=== PATIENT | female | born 1970 | race Caucasian/White ===

== ENCOUNTER → 2017-02-08 | Outpatient (CLI) | payer BC, OTHER ==
--- NOTE | 2017-02-08 22:30 | MR ---
EXAMINATION TYPE: MR brain/cspine wo DATE OF EXAM: 02/08/2017 9:04 PM COMPARISON: MRI brain September 09, 2014. HISTORY: Headaches, dizziness, neck pain, Mu arm pain TECHNIQUE: Multiplanar, multisequence imaging of the brain and brainstem is performed without IV cont rast. FINDINGS: BRAIN: Diffusion weighted images demonstrate no evidence of a recent infarct or other diffusion abnormality. There is no worrisome extra-axial fluid collection. The ventricular system and cisternal spaces are normal in size and appearance. The brain volume is age appropriate. A few scattered foci of T2 hyper intensity are likely still present though more artifact degradation on current study is noted. For re ference 2 mm lesion right parietal white matter on axial image 18 is stable. Estimate similar 4-6 sca ttered punctate lesions. Midline structures demonstrate normal morphology. The craniocervical junction appears within normal limits. Normal vascular flow voids are present. There is redemonstration of mucous retention cyst or polyp inferiorly in right maxillary sinus otherwise paranasal sinuses are clear. Globes are intact bi laterally. IMPRESSION: Overall stable findings minimal nonspecific white matter changes redemonstrated. No new s uspicious finding seen. C-SPINE: FINDINGS: Motion artifact degradation is noted making evaluation suboptimal. Sagittal images of the c ervical spine show the craniocervical junction to appear within normal limits. The cervical and uppe r thoracic spinal cord is normal in course, caliber, and signal. Vertebral alignment is anatomic. T he vertebral body and intravertebral disk heights are normal. Small posterior disc herniations are s een on sagittal images at C5-C6 and to lesser degree C6-C7 level effacing anterior thecal sac The bon e marrow signal intensity is within normal limits. No significant spurring is noted. Axial images show the C2-C3, C3-C4, and C4-C5 levels all to appear within normal limits. Axial images at C5-C6 level show broad-based right paracentral disc protrusion effacing anterior thec al sac and causing mild right greater than left neural foraminal narrowing. Finding most pronounced o n axial image 18 up to ventral surface of spinal cord. Axial images at C6-C7 level show broad-based central disc protrusion effacing anterior thecal sac and causing mild left-sided neural foraminal narrowing. Axial images at C7-T1 level are felt within normal limits. IMPRESSION: Degenerative changes C6-C7 and to greater degree C5-C6 level as detailed above.
== END | disposition home or self-care (01) ==
LOC: RADMRIMAIN 19:58
PROVIDERS: ATTEND Nurse Practitioner Acute Care
DX: M47.812 Spondylosis without myelopathy or radiculopathy, cervical region (principal); R90.82 White matter disease, unspecified; R51 Headache
CPT/HCPCS: 70551; 72141

== ENCOUNTER → 2017-02-13 | Outpatient (CLI) | payer BC, OTHER ==
--- NOTE | 2017-02-13 19:08 | US ---
EXAMINATION TYPE: US venous doppler duplex LE LT DATE OF EXAM: 02/13/2017 6:51 PM COMPARISON: NONE CLINICAL HISTORY: LLE Pain M79.605. Difficult exam due to patient body habitus SIDE PERFORMED: Left VESSELS IMAGED: External Iliac Vein (EIV) Common Femoral Vein Deep Femoral Vein Greater Saphenous Vein * Femoral Vein Popliteal Vein Small Saphenous Vein * Proximal Calf Veins (* superficial vessels) TECHNOLOGIST IMPRESSION: Left Leg: Appears negative for DVT IMPRESSION: Normal exam. No evidence of deep venous thrombosis in the left leg.
== END ==
LOC: RADUSMAIN 18:02
PROVIDERS: ATTEND Psychiatry & Neurology Neurology
DX: M79.605 Pain in left leg (principal)

== ENCOUNTER → 2017-05-20 | Outpatient (CLI) | payer BC, OTHER ==
--- NOTE | 2017-05-20 16:31 | CT ---
EXAMINATION TYPE: CT abdomen pelvis w con DATE OF EXAM: 05/20/2017 COMPARISON: NONE HISTORY: 47-year-old female lump to left side/lower abdominal area x1 month. TECHNIQUE: Contiguous axial scanning of the abdomen and pelvis following administration of 100 ml Omn ipaque 300 IV contrast. Delayed images through the kidneys and coronal/sagittal reconstructions perf ormed. CT DLP: 3790.0 mGycm Automated exposure control for dose reduction was used. FINDINGS: The heart is upper limits of normal in size without pericardial effusion. Lung bases are clear withou t pleural effusion. Some nonspecific calcifications along the periphery of the right hepatic dome could reflect sequela o f prior injury or granulomatous disease. The liver is mildly enlarged measuring 18.6 cm craniocaudal and otherwise without focal lesion. Cholecystectomy clips are present. Portal venous system is patent. No biliary ductal dilatation. Adrenal glands, kidneys, spleen, and pancreas within normal limits. Scattered nonenlarged mesenteric lymph nodes measuring up to 5 mm. No dilated small bowel, free fluid, or free air. Normal appendix. There is mild stool burden without pericolonic inflammatory change. Mild diverticulo sis of the mid to distal sigmoid colon without pericolonic inflammatory change. Bladder is urine distended. Uterus and both ovaries are visualized. No abnormal fluid collection in t he pelvis or pelvic lymphadenopathy. No discrete abdominal wall hernia is identified. Bones: Degenerative disc disease L5-S1. No osseous destructive process. IMPRESSION: 1. MILD HEPATOMEGALY. 2. NO DISCRETE ABDOMINAL WALL HERNIA IDENTIFIED.
== END | disposition home or self-care (01) ==
LOC: RADCTMAIN 14:41
PROVIDERS: ATTEND Surgery
DX: R16.0 Hepatomegaly, not elsewhere classified (principal)
CPT/HCPCS: 74177; Q9967

== ENCOUNTER 2017-05-23 08:56 | Day surgery (SDC) | payer BC, OTHER ==
[2017-05-22 10:21] VITALS: BMI 53.1
[~2017-05-23 08:56] MED LIST: LACTATED RINGERS 1,000 ML IV SCH
[2017-05-23 09:16] VITALS: TEMP 99.2
[2017-05-23] MEDS ORDERED: PROPOFOL 10 MG/ML 20 ML VIAL IV ONE (09:19)
[2017-05-23] MEDS ORDERED: LIDOCAINE 1% INJ 10MG/ML (20 ML MDV) ONE (09:19)
[2017-05-23] MEDS ORDERED: GLYCOPYRROLATE 0.2 MG/ML 2 ML VIAL ONE (09:19)
--- NOTE | 2017-05-23 09:22 | P.GSHP ---
History of Present Illness H&P Date: 05/23/17 Chief Complaint: GERD 's is a 47-year-old female referred from Dr. Erickson Guerra. Patient presents today for EGD. She's had issues with GERD. - Constitutional Constitutional: Reports as per HPI Past Medical History Past Medical History: Hypertension, Neurologic Disorder Additional Past Medical History / Comment(s): ANEMIA, MIGRAINES, RSD, OCULAR HTN BILAT EYES, History of Any Multi-Drug Resistant Organisms: None Reported Past Surgical History: Section, Cholecystectomy, Orthopedic Surgery Additional Past Surgical History / Comment(s): CTR-BILAT WRIST. CUBITAL TUNNEL BILAT WRIST. D & C Past Anesthesia/Blood Transfusion Reactions: No Reported Reaction Smoking Status: Current every day smoker - Past Family History Mother Family Medical History: No Reported History Medications and Allergies Home Medications Medication Instructions Recorded Confirmed Type Butalb/APAP/Caff 50-325-40Mg 1 each PO DAILY PRN 05/22/17 05/23/17 History [Fioricet 50-325-40] DULoxetine HCL [Cymbalta] 60 mg PO HS 05/22/17 05/23/17 History Ferrous Sulfate [Feosol] 325 mg PO BID 05/22/17 05/22/17 History Ibuprofen [Ibuprofen] 800 mg PO Q8HR PRN 05/22/17 05/22/17 History Latanoprost Ophth [Xalatan 0.005%] 1 drops BOTH EYES DAILY 05/22/17 05/23/17 History Topiramate [Topamax] 100 mg PO BID 05/22/17 05/23/17 History Triamterene-Hctz 37.5-25Mg 1 each PO DAILY 05/22/17 05/23/17 History [Dyazide 37.5-25 Capsule] Zolpidem Tartrate [Zolpidem 10 mg PO HS 05/22/17 05/23/17 History Tartrate] Allergies Allergy/AdvReac Type Severity Reaction Status Date / Time Sulfa (Sulfonamide Allergy RAPID Verified 05/22/17 10:10 Antibiotics) HEART RATE AND HIVES Surgical - Exam Vital Signs Resp 16 05/23/17 09:11 - General well developed, no distress - Eyes PERRL - ENT normal pinna - Neck no masses - Respiratory normal expansion - Cardiovascular Rhythm: regular - Abdomen Abdomen: soft, non tender Assessment and Plan Plan: GERD. We'll perform EGD.
--- NOTE | 2017-05-23 09:30 | P.OP ---
Date of Procedure: 05/23/17 Preoperative Diagnosis: GERD Postoperative Diagnosis: Mild antral gastritis No evidence of hiatal hernia Mild esophagitis Procedure(s) Performed: EGD Implants: Anesthesia: MAC Surgeon: Saad Lal Pathology: other (Antrum, esophagus) Condition: stable Disposition: PACU Indications for Procedure: Operative Findings: Description of Procedure: The patient's placed on the endoscopy table in the lateral position. She received IV sedation. The gastroscope some placed oropharynx and passed into the esophagus and stomach. Scope was then placed through the pylorus. The first and second portion of the duodenum appeared normal. Scope was then brought back the antrum and this appeared mildly inflamed. A biopsies performed. The scope was then retroflexed and the remainder of the stomach appeared normal. There was no hiatal hernia. The GE junction was at 40 cm. The distal esophagus appeared normal inflamed and a biopsy was performed. The proximal esophagus appeared normal. Scope was withdrawn
[2017-05-23 09:45] VITALS: BP 144/86; PULSE 93; RESP 18
== END 2017-05-23 10:34 | disposition home or self-care (01) ==
LOC: ORWHC2ENDO 08:56
PROVIDERS: ATTEND Surgery
DX: K29.50 Unspecified chronic gastritis without bleeding (principal); K20.9 Esophagitis, unspecified; I10 Essential (primary) hypertension; D64.9 Anemia, unspecified; G43.909 Migraine, unspecified, not intractable, without status migrainosus; F39 Unspecified mood [affective] disorder; Z72.0 Tobacco use; Z79.1 Long term (current) use of non-steroidal anti-inflammatories (NSAID); Z79.891 Long term (current) use of opiate analgesic; Z79.899 Other long term (current) drug therapy; Z88.2 Allergy status to sulfonamides
CPT/HCPCS: 81025; 88305; 88342; 43239; J2001; J2704

== ENCOUNTER → 2017-06-17 | Outpatient (CLI) | payer OTHER ==
[2017-06-17 20:34] LABS: Appearance,CSF Clear
[2017-06-20 14:37] LABS: Lyme Specimen Source Not Provided
== END | disposition home or self-care (01) ==
LOC: LABWHC1 09:06
PROVIDERS: ATTEND Psychiatry & Neurology Neurology
DX: R90.82 White matter disease, unspecified (principal)
CPT/HCPCS: 36415; 82040; 82042; 82784; 83873; 83916; 84157; 87476; 88108; 89050

== ENCOUNTER → 2017-12-25 | Outpatient (CLI) | payer OTHER ==
--- NOTE | 2017-12-25 19:03 | US ---
EXAMINATION TYPE: US carotid duplex BILAT DATE OF EXAM: 12/25/2017 COMPARISON: NONE CLINICAL HISTORY: G45.9 Transient cerebral ischemic attack, unspeci. Patient states having left side numbness and weakness x 2 weeks ago, HTN EXAM MEASUREMENTS: RIGHT: Peak Systolic Velocity (PSV) cm/sec ----- Right CCA: 70.3 ----- Right ICA: 83.4 ----- Right ECA: 90.0 ICA/CCA ratio: 1.2 RIGHT: End Diastole cm/sec ----- Right CCA: 18.8 ----- Right ICA: 28.5 ----- Right ECA: 10.9 LEFT: Peak Systolic Velocity (PSV) cm/sec ----- Left CCA: 91.9 ----- Left ICA: 75.3 ----- Left ECA: 78.8 ICA/CCA ratio: 0.8 LEFT: End Diastole cm/sec ----- Left CCA: 19.2 ----- Left ICA: 23.6 ----- Left ECA: 11.5 VERTEBRALS (direction of flow): Right Vertebral: Antegrade Left Vertebral: Antegrade Rhythm: Normal Bilateral wall thickening. No elevated velocities, significant stenosis or plaque identified. IMPRESSION: There is antegrade flow in the vertebral arteries. The images and measurements suggest c lose to 0% stenosis in both internal carotid arteries. Criteria for Assigning % of Stenosis / Diameter reduction (Estimation based on the indirect measurements of the internal carotid artery velocities (ICA PSV). 1. Normal (no stenosis)=ICA PSV < 125 cm/s: ratio < 2.0: ICA EDV<40 cm/s. 2. Less than 50% stenosis=ICA PSV < 125 cm/s: ratio < 2.0: ICA EDV<40 cm/s. 3. 50 to 69% stenosis=ICA PSV of 125 to 230 cm/s: ration 2.0 ? 4.0: ICA EDV 40-100 cm/s. 4. Greater than 70% stenosis to near occlusion= ICA PSV > 230 cm/s: ratio > 4.0: ICA EDV > 100 cm/s. 5. Near occlusion= ICA PSV velocities may be low or undetectable: variable ratio and ICA EDV. 6. Total occlusion=unable to detect flow.
== END | disposition home or self-care (01) ==
LOC: RADUSWWP 16:55
PROVIDERS: ATTEND Psychiatry & Neurology Neurology
DX: G45.9 Transient cerebral ischemic attack, unspecified (principal)
CPT/HCPCS: 93880

== ENCOUNTER 2018-01-11 23:00 | Inpatient (IN) | payer OTHER ==
[2018-01-11] MEDS ORDERED: IPRATROPIUM-ALBUTEROL 3 ML NEB INHALATION STA (23:48)
[2018-01-11] MEDS ORDERED: ALBUTEROL NEBULIZED 2.5 MG/3 ML INHALATION STA (23:48)
--- NOTE | 2018-01-12 00:02 | ED ---
SOB HPI - General Chief Complaint: Shortness of Breath Stated Complaint: MAMIE Time Seen by Provider: 01/11/18 23:24 Source: patient Mode of arrival: ambulatory Limitations: no limitations - History of Present Illness Initial Comments: This patient is a 47-year-old woman who presents to be evaluate for shortness of breath. Her symptoms have been going on for a little over 2 days. She has had cough which is largely nonproductive, and increasing shortness of breath. She states that it feels like she is trying to breathe underwater. She is denying chills though she did experience fever. She is not having chest pain. No change in urination or bowel movements. The patient has had some bilateral leg pain but this is been going on for number weeks. She has not experienced leg swelling. MD Complaint: shortness of breath, cough Onset/Timin -: days(s) Consistency: constant Improves With: nothing Worsens With: nothing Context: recent URI Associated Symptoms: denies other symptoms Treatments Prior to Arrival: none - Related Data Home Medications Medication Instructions Recorded Confirmed Butalb/APAP/Caff 50-325-40Mg 1 tab PO Q8HR PRN 05/22/17 01/12/18 [Fioricet 50-325-40] DULoxetine HCL [Cymbalta] 60 mg PO HS 05/22/17 01/12/18 Ferrous Sulfate [Feosol] 325 mg PO BID 05/22/17 01/12/18 Ibuprofen [Ibuprofen] 800 mg PO Q8HR PRN 05/22/17 01/12/18 Topiramate [Topamax] 100 mg PO BID 05/22/17 01/12/18 Triamterene-Hctz 37.5-25Mg 1 cap PO DAILY 05/22/17 01/12/18 [Dyazide 37.5-25 Capsule] Zolpidem Tartrate [Zolpidem 10 mg PO HS 05/22/17 01/12/18 Tartrate] HYDROcodone/APAP 7.5-325MG [[place] 1 tab PO BID PRN 01/12/18 01/12/18 7.5-325] Pregabalin [Lyrica] 150 mg PO BID 01/12/18 01/12/18 Verapamil HCl [Verapamil ER] 120 mg PO DAILY 01/12/18 01/12/18 amLODIPine BESYLATE/BENAZEPRIL 1 tab PO HS 01/12/18 01/12/18 [amLODIPine BESYLATE/BENAZEPRIL 5-10 mg] Allergies Allergy/AdvReac Type Severity Reaction Status Date / Time Sulfa (Sulfonamide Allergy RAPID Verified 01/12/18 08:25 Antibiotics) HEART RATE AND HIVES Review of Systems ROS Statement: Those systems with pertinent positive or pertinent negative responses have been documented in the HPI. ROS Other: All systems not noted in ROS Statement are negative. Constitutional: Reports: fever. Denies: chills Respiratory: Reports: cough, dyspnea. Denies: hemoptysis Cardiovascular: Denies: chest pain, palpitations, edema, syncope Gastrointestinal: Denies: abdominal pain, vomiting, diarrhea Genitourinary: Denies: dysuria, hematuria Musculoskeletal: Denies: back pain Skin: Denies: rash Neurological: Denies: headache, weakness, numbness Past Medical History Past Medical History: Hypertension Additional Past Medical History / Comment(s): RSD, Lesions on brain, possible MS , Spinal puncture, History of Any Multi-Drug Resistant Organisms: None Reported Past Surgical History: Appendectomy Past Psychological History: Anxiety, Depression Smoking Status: Current every day smoker Past Alcohol Use History: None Reported, Rare Past Drug Use History: Marijuana - Past Family History Father Family Medical History: Coronary Artery Disease (CAD), Diabetes Mellitus, Thyroid Disorder Brother(s) Family Medical History: Diabetes Mellitus General Exam Limitations: no limitations General appearance: alert, in distress (Tachypnea), obese Head exam: Present: atraumatic, normocephalic ENT exam: Present: mucous membranes dry Neck exam: Present: normal inspection Respiratory exam: Present: respiratory distress (Tachypnea), wheezes, decreased breath sounds. Absent: rales, rhonchi, stridor, chest wall tenderness, accessory muscle use, prolonged expiratory Cardiovascular Exam: Present: normal rhythm, tachycardia, normal heart sounds. Absent: systolic murmur, diastolic murmur, rubs, gallop GI/Abdominal exam: Present: soft. Absent: distended, tenderness, guarding, rebound Extremities exam: Present: normal inspection, normal capillary refill. Absent: pedal edema, calf tenderness Back exam: Present: normal inspection. Absent: CVA tenderness (R), CVA tenderness (L) Neurological exam: Present: alert Skin exam: Present: warm, dry, intact, normal color. Absent: rash Course Vital Signs 01/11/18 01/12/18 01/12/18 23:05 00:01 00:11 Temperature 101.8 F H Pulse Rate 115 H 107 H 107 H Respiratory 38 H Rate Blood Pressure 179/88 O2 Sat by Pulse 88 L Oximetry 01/12/18 01/12/18 01/12/18 01:08 02:27 03:04 Temperature 100.7 F H 99.2 F Pulse Rate 105 H 94 88 Respiratory 24 22 Rate Blood Pressure 127/61 157/69 O2 Sat by Pulse 93 L 95 Oximetry 01/12/18 03:15 Temperature Pulse Rate 96 Respiratory Rate Blood Pressure O2 Sat by Pulse Oximetry Medical Decision Making - Lab Data Result diagrams: 01/11/18 23:50 01/11/18 23:50 Lab Results 01/11/18 01/11/18 01/11/18 Range/Units 23:50 23:50 23:50 WBC 8.1 (3.8-10.6) k/uL RBC 5.28 (3.80-5.40) m/uL Hgb 14.8 (11.4-16.0) gm/dL Hct 47.0 H (34.0-46.0) % MCV 89.0 (80.0-100.0) fL MCH 28.0 (25.0-35.0) pg MCHC 31.4 (31.0-37.0) g/dL RDW 14.8 (11.5-15.5) % Plt Count 215 (150-450) k/uL Neutrophils % 79 % Lymphocytes % 10 % Monocytes % 6 % Eosinophils % 2 % Basophils % 1 % Neutrophils # 6.4 (1.3-7.7) k/uL Lymphocytes # 0.8 L (1.0-4.8) k/uL Monocytes # 0.5 (0-1.0) k/uL Eosinophils # 0.1 (0-0.7) k/uL Basophils # 0.1 (0-0.2) k/uL Hypochromasia Slight PT (9.0-12.0) sec INR (<1.2) APTT (22.0-30.0) sec D-Dimer (<0.60) mg/L FEU Sodium 141 (137-145) mmol/L Potassium 4.2 (3.5-5.1) mmol/L Chloride 107 (98-107) mmol/L Carbon Dioxide 24 (22-30) mmol/L Anion Gap 10 mmol/L BUN 8 (7-17) mg/dL Creatinine 0.60 (0.52-1.04) mg/dL Est GFR (MDRD) Af Amer >60 (>60 ml/min/1.73 sqM) Est GFR (MDRD) Non-Af >60 (>60 ml/min/1.73 sqM) Glucose 115 H (74-99) mg/dL Plasma Lactic Acid [place] (0.7-2.0) mmol/L Calcium 9.5 (8.4-10.2) mg/dL Magnesium 2.0 (1.6-2.3) mg/dL Total Bilirubin 0.1 L (0.2-1.3) mg/dL AST 20 (14-36) U/L ALT 29 (9-52) U/L Alkaline Phosphatase 91 (38-126) U/L Total Creatine Kinase 128 (30-135) U/L CK-MB (CK-2) 2.1 (0.0-2.4) ng/mL CK-MB (CK-2) Rel Index 1.6 Troponin I <0.012 (0.000-0.034) ng/mL NT-Pro-B Natriuret Pep pg/mL Total Protein 6.5 (6.3-8.2) g/dL Albumin 3.6 (3.5-5.0) g/dL Urine Color Urine Appearance (Clear) Urine pH (5.0-8.0) Ur Specific [place] (1.001-1.035) Urine Protein (Negative) Urine Glucose (UA) (Negative) Urine Ketones (Negative) Urine Blood (Negative) Urine Nitrite (Negative) Urine Bilirubin (Negative) Urine Urobilinogen (<2.0) mg/dL Ur Leukocyte Esterase (Negative) Urine RBC (0-5) /hpf Urine WBC (0-5) /hpf Ur Squamous Epith Cells (0-4) /hpf Urine Bacteria (None) /hpf Urine Mucus (None) /hpf Influenza Type A RNA (Not Detectd) Influenza Type B (PCR) (Not Detectd) 01/11/18 01/11/18 01/11/18 Range/Units 23:50 23:50 23:50 WBC (3.8-10.6) k/uL RBC (3.80-5.40) m/uL Hgb (11.4-16.0) gm/dL Hct (34.0-46.0) % MCV (80.0-100.0) fL MCH (25.0-35.0) pg MCHC (31.0-37.0) g/dL RDW (11.5-15.5) % Plt Count (150-450) k/uL Neutrophils % % Lymphocytes % % Monocytes % % Eosinophils % % Basophils % % Neutrophils # (1.3-7.7) k/uL Lymphocytes # (1.0-4.8) k/uL Monocytes # (0-1.0) k/uL Eosinophils # (0-0.7) k/uL Basophils # (0-0.2) k/uL Hypochromasia PT 9.4 (9.0-12.0) sec INR 0.9 (<1.2) APTT 22.5 (22.0-30.0) sec D-Dimer 1.16 H (<0.60) mg/L FEU Sodium (137-145) mmol/L Potassium (3.5-5.1) mmol/L Chloride (98-107) mmol/L Carbon Dioxide (22-30) mmol/L Anion Gap mmol/L BUN (7-17) mg/dL Creatinine (0.52-1.04) mg/dL Est GFR (MDRD) Af Amer (>60 ml/min/1.73 sqM) Est GFR (MDRD) Non-Af (>60 ml/min/1.73 sqM) Glucose (74-99) mg/dL Plasma Lactic Acid Jud[place] (0.7-2.0) mmol/L Calcium (8.4-10.2) mg/dL Magnesium (1.6-2.3) mg/dL Total Bilirubin (0.2-1.3) mg/dL AST (14-36) U/L ALT (9-52) U/L Alkaline Phosphatase (38-126) U/L Total Creatine Kinase (30-135) U/L CK-MB (CK-2) (0.0-2.4) ng/mL CK-MB (CK-2) Rel Index Troponin I (0.000-0.034) ng/mL NT-Pro-B Natriuret Pep 156 pg/mL Total Protein (6.3-8.2) g/dL Albumin (3.5-5.0) g/dL Urine Color Urine Appearance (Clear) Urine pH (5.0-8.0) Ur Specific [place] (1.001-1.035) Urine Protein (Negative) Urine Glucose (UA) (Negative) Urine Ketones (Negative) Urine Blood (Negative) Urine Nitrite (Negative) Urine Bilirubin (Negative) Urine Urobilinogen (<2.0) mg/dL Ur Leukocyte Esterase (Negative) Urine RBC (0-5) /hpf Urine WBC (0-5) /hpf Ur Squamous Epith Cells (0-4) /hpf Urine Bacteria (None) /hpf Urine Mucus (None) /hpf Influenza Type A RNA Not Detected (Not Detectd) Influenza Type B (PCR) Not Detected (Not Detectd) 01/11/18 01/12/18 Range/Units 23:50 00:37 WBC (3.8-10.6) k/uL RBC (3.80-5.40) m/uL Hgb (11.4-16.0) gm/dL Hct (34.0-46.0) % MCV (80.0-100.0) fL MCH (25.0-35.0) pg MCHC (31.0-37.0) g/dL RDW (11.5-15.5) % Plt Count (150-450) k/uL Neutrophils % % Lymphocytes % % Monocytes % % Eosinophils % % Basophils % % Neutrophils # (1.3-7.7) k/uL Lymphocytes # (1.0-4.8) k/uL Monocytes # (0-1.0) k/uL Eosinophils # (0-0.7) k/uL Basophils # (0-0.2) k/uL Hypochromasia PT (9.0-12.0) sec INR (<1.2) APTT (22.0-30.0) sec D-Dimer (<0.60) mg/L FEU Sodium (137-145) mmol/L Potassium (3.5-5.1) mmol/L Chloride (98-107) mmol/L Carbon Dioxide (22-30) mmol/L Anion Gap mmol/L BUN (7-17) mg/dL Creatinine (0.52-1.04) mg/dL Est GFR (MDRD) Af Amer (>60 ml/min/1.73 sqM) Est GFR (MDRD) Non-Af (>60 ml/min/1.73 sqM) Glucose (74-99) mg/dL Plasma Lactic Acid [place] 1.1 (0.7-2.0) mmol/L Calcium (8.4-10.2) mg/dL Magnesium (1.6-2.3) mg/dL Total Bilirubin (0.2-1.3) mg/dL AST (14-36) U/L ALT (9-52) U/L Alkaline Phosphatase (38-126) U/L Total Creatine Kinase (30-135) U/L CK-MB (CK-2) (0.0-2.4) ng/mL CK-MB (CK-2) Rel Index Troponin I (0.000-0.034) ng/mL NT-Pro-B Natriuret Pep pg/mL Total Protein (6.3-8.2) g/dL Albumin (3.5-5.0) g/dL Urine Color Yellow Urine Appearance Cloudy H (Clear) Urine pH 5.5 (5.0-8.0) Ur Specific [place] 1.015 (1.001-1.035) Urine Protein Trace H (Negative) Urine Glucose (UA) Negative (Negative) Urine Ketones Negative (Negative) Urine Blood Negative (Negative) Urine Nitrite Negative (Negative) Urine Bilirubin Negative (Negative) Urine Urobilinogen <2.0 (<2.0) mg/dL Ur Leukocyte Esterase Negative (Negative) Urine RBC <1 (0-5) /hpf Urine WBC 10 H (0-5) /hpf Ur Squamous Epith Cells 7 H (0-4) /hpf Urine Bacteria Rare H (None) /hpf Urine Mucus Rare H (None) /hpf Influenza Type A RNA (Not Detectd) Influenza Type B (PCR) (Not Detectd) - EKG Data -: EKG Interpreted by Fl EKG shows normal: sinus rhythm, axis (Normal), intervals (Normal), QRS complexes (Normal), ST-T waves (Normal) Rate: tachycardia (Rate approximately 106 bpm) Disposition Clinical Impression: Community acquired pneumonia, Reactive airway disease Disposition: ADMITTED IP TO THIS HOSP Condition: Fair
[2018-01-12 00:09] LABS: Basophils # (A) 0.1 k/uL (0-0.2); Basophils % (A) 1 %; Eosinophils # (A) 0.1 k/uL (0-0.7); Eosinophils % (A) 2 %; HGB 14.8 gm/dL (11.4-16.0); Hypochromasia Slight; Lymphocytes # (A) 0.8 k/uL (1.0-4.8); Lymphocytes % (A) 10 %; MCHC 31.4 g/dL (31.0-37.0); Mean Platelet Volume 7.8; Monocytes # (A) 0.5 k/uL (0-1.0); Monocytes % (A) 6 %; Neutrophils # (A) 6.4 k/uL (1.3-7.7); Neutrophils % (A) 79 %; Platelet Count 215 k/uL (150-450); RBC 5.28 m/uL (3.80-5.40); RDW 14.8 % (11.5-15.5); WBC 8.1 k/uL (3.8-10.6)
[2018-01-12 00:21] LABS: ALT 29 U/L (9-52); AST 20 U/L (14-36); Albumin 3.6 g/dL (3.5-5.0); Alkaline Phosphatase 91 U/L (38-126); Anion Gap 10 mmol/L; Blood Urea Nitrogen 8 mg/dL (7-17); Calcium 9.5 mg/dL (8.4-10.2); Carbon Dioxide 24 mmol/L (22-30); Chloride 107 mmol/L (98-107); Glucose 115 mg/dL (74-99); Potassium 4.2 mmol/L (3.5-5.1); Sodium 141 mmol/L (137-145); Total Bilirubin 0.1 mg/dL (0.2-1.3); Total Protein 6.5 g/dL (6.3-8.2)
[2018-01-12 00:32] LABS: Creatine Kinase 128 U/L (30-135)
--- NOTE | 2018-01-12 00:32 | XR ---
EXAMINATION TYPE: XR chest 1V portable DATE OF EXAM: 01/12/2018 COMPARISON: 10/18/2012 HISTORY: Short of breath TECHNIQUE: Single frontal view of the chest is obtained. FINDINGS: Heart and mediastinum are normal. Lungs are clear. Diaphragm is normal. Bony thorax is int act. There are chest leads. IMPRESSION: Normal chest. No change.
[2018-01-12 00:45] LABS: Creatine Kinase MB 2.1 ng/mL (0.0-2.4); Troponin I <0.012 ng/mL (0.000-0.034)
[2018-01-12 00:46] LABS: D-Dimer 1.16 mg/L FEU (<0.60)
[2018-01-12] MEDS ORDERED: ACETAMINOPHEN TAB 325 MG TAB PO STA (00:46)
[2018-01-12 00:51] LABS: INR 0.9 (<1.2); Partial Thromboplastin Time 22.5 sec (22.0-30.0); Prothrombin Time 9.4 sec (9.0-12.0)
[2018-01-12 01:10] LABS: Appearance,Urine Cloudy (Clear); Bacteria,Urine Rare /hpf; Bilirubin,Urine Negative (Negative); Blood,Urine Negative (Negative); Color,Urine Yellow; Glucose,Urine (UA) Negative (Negative); Ketones,Urine Negative (Negative); Leukocyte Esterase,Urine Negative (Negative); Mucus,Urine Rare /hpf; Nitrite,Urine Negative (Negative); PH, Urine 5.5 (5.0-8.0); Protein,Urine Trace (Negative); RBC,Urine <1 /hpf (0-5); Specific Gravity,Urine 1.015 (1.001-1.035); Squamous Epithelial Cell,Urine 7 /hpf (0-4); Urobilinogen,Urine <2.0 mg/dL (<2.0); WBC,Urine 10 /hpf (0-5)
[2018-01-12] MEDS ORDERED: RX INFO: IV CONTRAST WAS GIVEN 1 EACH MISC MISCELLANE PRN (01:47)
--- NOTE | 2018-01-12 02:25 | CT ---
EXAMINATION TYPE: CT chest angio for PE DATE OF EXAM: 01/12/2018 COMPARISON: NONE HISTORY: SOB CT DLP: 835.90 mGycm Automated exposure control for dose reduction was used. CONTRAST: CT Chest for pulmonary embolism performed with with IV Contrast, patient injected with 95 mL of Omnip aque 350. FINDINGS: There are 3-D post processed images. There is no mediastinal adenopathy. There is no evidence of aortic aneurysm or dissection. There is some consolidation and atelectasis in the lingula left upper lobe. There is some mild reticu lar nodular infiltrate at the left posterior lung base. There is no pleural effusion. Heart is enlarg ed. There is no pericardial effusion. I see no definite filling defect in the pulmonary arteries. The bon y thorax is intact. There is mild spurring in the thoracic spine. IMPRESSION: No evidence of pulmonary embolism. Cardiomegaly. Lingula infiltrate and atelectasis. Mild infiltrate also present in the left lower lobe.
[2018-01-12] MEDS ORDERED: AZITHROMYCIN 500 MG TAB PO STA (02:37)
[2018-01-12] MEDS ORDERED: cefTRIAXone IN SWFI 1,000 MG/10 ML SYRINGE IVP STA (02:37)
[2018-01-12] MEDS ORDERED: ALBUTEROL NEBULIZED 2.5 MG/3 ML INHALATION STA (02:38)
[2018-01-12] MEDS ORDERED: ALBUTEROL NEBULIZED 2.5 MG/3 ML INHALATION PRN (02:55)
[2018-01-12] MEDS ORDERED: PNEUMONIA PROTOCOL UTILIZED 1 EACH MISC PO PRN (02:55)
[2018-01-12] MEDS ORDERED: IBUPROFEN 800 MG TAB PO STA (04:02)
[2018-01-12] MEDS: IPRATROPIUM-ALBUTEROL 3 ML NEB INHALATION SCH ×4 (07:10→20:18)
[2018-01-12] MEDS ORDERED: ENOXAPARIN 40 MG/0.4 ML SYRINGE SQ SCH (09:00)
[2018-01-12] MEDS: PREGABALIN 75 MG CAP PO SCH ×2 (10:59→21:38)
[2018-01-12] MEDS: VERAPAMIL SR 120 MG TABLET.ER PO SCH (10:59)
[2018-01-12] MEDS: BUTALB/APAP/CAFF 50-325-40MG TAB PO PRN (10:59)
[2018-01-12] MEDS: TOPIRAMATE 100 MG TAB PO SCH ×2 (11:00→21:38)
[2018-01-12] MEDS: FERROUS SULFATE 325 MG TAB PO SCH ×2 (11:00→21:38)
[2018-01-12] MEDS: predniSONE 50 MG TAB PO SCH (12:36)
[2018-01-12] MEDS: HYDROcodone/APAP 7.5-325MG 1 EACH TAB PO PRN (13:53)
--- NOTE | 2018-01-12 16:59 | P.CNPUL ---
History of Present Illness Consult date: 01/12/18 Reason for consult: COPD, pneumonia Chief complaint: Shortness of breath and cough History of present illness: This is a 47-year-old female, heavy smoker, known to have history of COPD, obesity, depression, possible MS, patient came into the ER last night complaining of 2 days history of cough, wheezing, cough is nonproductive, but it is associated with increased shortness of breath. Patient felt she was breathing underwater. No fevers and no chills were noted. However upon admission she was noted to have a temp of 99.7. And she had a CT of the chest showing no evidence of pulmonary embolism but, but it did show cardiomegaly, lingular infiltrate noted in the left midlung. Patient was admitted, and this consult was initiated. Presently the patient denies any headaches, no blurred vision, no dizziness, no nausea no vomiting no abdominal pain no melena no hematemesis, no dysuria, no frequency no urgency. Her labs basically were unremarkable including a normal CBC and a normal complete metabolic profile. Lactic acid was 1.1. Review of Systems 14 point review of systems were obtained, please refer to pertinent positives in HPI otherwise remaining systems are negative Past Medical History Past Medical History: CVA/TIA, Hypertension Additional Past Medical History / Comment(s): RSD, Lesions on brain, possible MS , TIA 3 wks ago, neuropathy, vestibular imbalance History of Any Multi-Drug Resistant Organisms: None Reported Past Surgical History: Appendectomy, Section, Cholecystectomy Additional Past Surgical History / Comment(s): carpal tunnel Bilateral, cubital tunnel Past Anesthesia/Blood Transfusion Reactions: No Reported Reaction Past Psychological History: Anxiety, Depression Smoking Status: Current every day smoker Past Alcohol Use History: None Reported, Rare Past Drug Use History: Marijuana - Past Family History Father Family Medical History: Coronary Artery Disease (CAD), Diabetes Mellitus, Thyroid Disorder Brother(s) Family Medical History: Diabetes Mellitus Medications and Allergies Home Medications Medication Instructions Recorded Confirmed Type Butalb/APAP/Caff 50-325-40Mg 1 tab PO Q8HR PRN 05/22/17 01/12/18 History [Fioricet 50-325-40] DULoxetine HCL [Cymbalta] 60 mg PO HS 05/22/17 01/12/18 History Ferrous Sulfate [Feosol] 325 mg PO BID 05/22/17 01/12/18 History Ibuprofen [Ibuprofen] 800 mg PO Q8HR PRN 05/22/17 01/12/18 History Topiramate [Topamax] 100 mg PO BID 05/22/17 01/12/18 History Triamterene-Hctz 37.5-25Mg 1 cap PO DAILY 05/22/17 01/12/18 History [Dyazide 37.5-25 Capsule] Zolpidem Tartrate [Zolpidem 10 mg PO HS 05/22/17 01/12/18 History Tartrate] HYDROcodone/APAP 7.5-325MG [Anthony 1 tab PO BID PRN 01/12/18 01/12/18 History 7.5-325] Pregabalin [Lyrica] 150 mg PO BID 01/12/18 01/12/18 History Verapamil HCl [Verapamil ER] 120 mg PO DAILY 01/12/18 01/12/18 History amLODIPine BESYLATE/BENAZEPRIL 1 tab PO HS 01/12/18 01/12/18 History [amLODIPine BESYLATE/BENAZEPRIL 5-10 mg] Allergies Allergy/AdvReac Type Severity Reaction Status Date / Time Sulfa (Sulfonamide Allergy RAPID Verified 01/12/18 08:25 Antibiotics) HEART RATE AND HIVES Physical Exam Vitals: Vital Signs Temp Pulse Pulse Resp BP BP Pulse Ox 01/12/18 16:28 98 01/12/18 16:18 98 18 01/12/18 15:00 99.7 F H 108 H 22 136/85 94 L 01/12/18 11:11 96 01/12/18 11:02 96 01/12/18 08:00 93 22 01/12/18 07:29 92 01/12/18 07:12 92 01/12/18 07:00 97.8 F 93 22 141/83 94 L 01/12/18 04:40 97.3 F L 99 18 169/86 94 L 01/12/18 04:06 100.4 F H 92 22 142/67 96 01/12/18 03:15 96 01/12/18 03:04 88 01/12/18 02:27 99.2 F 94 22 157/69 95 01/12/18 01:08 100.7 F H 105 H 24 127/61 93 L 01/12/18 00:11 107 H 01/12/18 00:01 107 H 01/11/18 23:05 101.8 F H 115 H 38 H 179/88 88 L Intake and Output 01/12/18 01/12/18 01/12/18 06:59 14:59 22:59 Intake Total 960 Balance 960 Intake: Oral 960 Other: Voiding Method Toilet Toilet # Voids 1 6 # Bowel Movements 1 Weight 142.882 kg Physical Exam: Revealed a 47-year-old female, in no distress. HEENT:[Neck is supple.] [No neck masses.] [No thyromegaly.] [No JVD.] Chest: [Diminished breath sounds at the bases, rhonchi and wheezes noted on forced expiratory maneuver. Cardiac Exam: [Normal S1 and S2, no S3 gallop, no murmur.] Abdomen: [Soft, nontender, no megaly, no rebound, no guarding, normal bowel sounds.] Extremities: [No clubbing, no edema, no cyanosis.] Neurological Exam: [No focal neurologic deficit.] Lymphatics: No lymphadenopathy Psychiatric: Normal mood affect and mental status examination Musculoskeletal: Normal range of motion, no deformities, no tenderness. Results - Laboratory Findings CBC and BMP: 01/11/18 23:50 01/11/18 23:50 PT/INR, D-dimer PT 9.4 sec (9.0-12.0) 01/11/18 23:50 INR 0.9 (<1.2) 01/11/18 23:50 D-Dimer 1.16 mg/L FEU (<0.60) H 01/11/18 23:50 Abnormal lab findings: Abnormal Labs 01/11/18 01/11/18 01/11/18 23:50 23:50 23:50 Hct 47.0 H Lymphocytes # 0.8 L D-Dimer 1.16 H Glucose 115 H Total Bilirubin 0.1 L Urine Appearance Urine Protein Urine WBC Ur Squamous Epith Cells Urine Bacteria Urine Mucus 01/12/18 00:37 Hct Lymphocytes # D-Dimer Glucose Total Bilirubin Urine Appearance Cloudy H Urine Protein Trace H Urine WBC 10 H Ur Squamous Epith Cells 7 H Urine Bacteria Rare H Urine Mucus Rare H - Diagnostic Findings Chest x-ray: image reviewed CT scan - chest: image reviewed (Suspicious for lingular infiltrate/pneumonia otherwise unremarkable) Assessment and Plan Assessment: Acute community-acquired left lower lobe pneumonia Acute exacerbation of COPD Acute hypoxic respiratory failure secondary to pneumonia and COPD. Recommendation: I fully agree with the present treatment plan including oxygen, antibiotics, bronchodilators, steroids, could consider reevaluation in the next 24 hours and possible discharge on oral antibiotics steroids and bronchodilators. Time with Patient: Greater than 30
[2018-01-12] MEDS: ACETAMINOPHEN TAB 500 MG TAB PO PRN (17:10)
[2018-01-12] MEDS: amLODIPine 5 MG TAB PO SCH (21:38)
[2018-01-12] MEDS: DULoxetine HCL 60 MG CAPSULE.DR PO SCH (21:38)
[2018-01-12] MEDS: LISINOPRIL 10 MG TAB PO SCH (21:38)
--- NOTE | 2018-01-12 22:03 | P.HPIM ---
History of Present Illness H&P Date: 01/12/18 Chief Complaint: Shortness of breath Patient is a 47-year-old female with known history of active smoking, brain lesions with possible MS and recent steroid therapy, depression and morbid obesity came to the hospital with complaints of shortness of breath cough and wheezing. Otherwise currently denied any fever or chills. Patient was found to have elevated d-dimer but a CT angiogram is negative for any pulmonary embolism. CT chest showed lingular infiltrate. Otherwise patient denied any nausea vomiting or diarrhea and abdominal pain. No headache or dizziness or lightheadedness no focal weakness at this time. Patient does have a history of headache and is on currently following with neurology clinic for her pain is management. No dysuria no hematuria. Patient continues to smoke 1 pack per day Review of Systems Constitutional: Patient denies any fever or chills . No generalized weakness or weight loss. Abdomen: Patient denied nausea vomiting and diarrhea and abdominal pain. Cardiovascular: Patient denies any chest pain or short of breath no palpitations. Respiratory: Patient does have cough with minimal sputum production. And shortness of breath and congestion Neurologic: Patient denied any numbness or tingling headache. Musculoskeletal: Patient denies any complaints of joint swelling or deformity. Skin: Negative Psychiatric: Negative Endocrine: No heat or cold intolerance. No recent weight gain. Genitourinary: No dysuria or hematuria. All other 14 point ROS negative except the above Past Medical History Past Medical History: CVA/TIA, Hypertension Additional Past Medical History / Comment(s): RSD, Lesions on brain, possible MS , TIA 3 wks ago, neuropathy, vestibular imbalance History of Any Multi-Drug Resistant Organisms: None Reported Past Surgical History: Appendectomy, Section, Cholecystectomy Additional Past Surgical History / Comment(s): carpal tunnel Bilateral, cubital tunnel Past Anesthesia/Blood Transfusion Reactions: No Reported Reaction Past Psychological History: Anxiety, Depression Smoking Status: Current every day smoker Past Alcohol Use History: None Reported, Rare Past Drug Use History: Marijuana - Past Family History Father Family Medical History: Coronary Artery Disease (CAD), Diabetes Mellitus, Thyroid Disorder Brother(s) Family Medical History: Diabetes Mellitus Medications and Allergies Home Medications Medication Instructions Recorded Confirmed Type Butalb/APAP/Caff 50-325-40Mg 1 tab PO Q8HR PRN 05/22/17 01/12/18 History [Fioricet 50-325-40] DULoxetine HCL [Cymbalta] 60 mg PO HS 05/22/17 01/12/18 History Ferrous Sulfate [Feosol] 325 mg PO BID 05/22/17 01/12/18 History Ibuprofen [Ibuprofen] 800 mg PO Q8HR PRN 05/22/17 01/12/18 History Topiramate [Topamax] 100 mg PO BID 05/22/17 01/12/18 History Triamterene-Hctz 37.5-25Mg 1 cap PO DAILY 05/22/17 01/12/18 History [Dyazide 37.5-25 Capsule] Zolpidem Tartrate [Zolpidem 10 mg PO HS 05/22/17 01/12/18 History Tartrate] HYDROcodone/APAP 7.5-325MG [[place] 1 tab PO BID PRN 01/12/18 01/12/18 History 7.5-325] Pregabalin [Lyrica] 150 mg PO BID 01/12/18 01/12/18 History Verapamil HCl [Verapamil ER] 120 mg PO DAILY 01/12/18 01/12/18 History amLODIPine BESYLATE/BENAZEPRIL 1 tab PO HS 01/12/18 01/12/18 History [amLODIPine BESYLATE/BENAZEPRIL 5-10 mg] Allergies Allergy/AdvReac Type Severity Reaction Status Date / Time Sulfa (Sulfonamide Allergy RAPID Verified 01/12/18 08:25 Antibiotics) HEART RATE AND HIVES Physical Exam Vitals: Vital Signs Temp Pulse Pulse Resp BP BP Pulse Ox 01/12/18 08:00 93 22 01/12/18 07:29 92 01/12/18 07:12 92 01/12/18 07:00 97.8 F 93 22 141/83 94 L 01/12/18 04:40 97.3 F L 99 18 169/86 94 L 01/12/18 04:06 100.4 F H 92 22 142/67 96 01/12/18 03:15 96 01/12/18 03:04 88 01/12/18 02:27 99.2 F 94 22 157/69 95 01/12/18 01:08 100.7 F H 105 H 24 127/61 93 L 01/12/18 00:11 107 H 01/12/18 00:01 107 H 01/11/18 23:05 101.8 F H 115 H 38 H 179/88 88 L Intake and Output 01/11/18 01/12/18 01/12/18 22:59 06:59 14:59 Other: Voiding Method Toilet Toilet # Voids 1 1 # Bowel Movements 1 Weight 142.882 kg PHYSICAL EXAMINATION: Patient is lying in the bed comfortably, no acute distress, awake alert and oriented.. HEENT: Normocephalic. Neck is supple. Pupils reactive. Nostrils clear. Oral cavity is moist. Ears reveal no drainage. Neck reveals no JVD, carotid bruits, or thyromegaly. CHEST EXAMINATION: Trachea is central. Symmetrical expansion. Bilateral diminished air entry with expiratory wheezing CARDIAC: Normal S1, S2 with no gallops. No murmurs ABDOMEN: Soft. Bowel sounds normal. No organomegaly. No abdominal bruits. Extremities: reveal no edema. No clubbing or cyanosis Neurologically awake, alert, oriented x3 with well-coordinated movements. No focal deficits noted Skin: No rash or skin lesions. Psychiatric: Cooperative. Nonsuicidal Musculoskeletal: No joint swelling or deformity. Normal range of motion. Results CBC & Chem 7: 01/11/18 23:50 01/11/18 23:50 Labs: Abnormal Lab Results - Last 24 Hours (Table) 01/11/18 01/11/18 01/11/18 Range/Units 23:50 23:50 23:50 Hct 47.0 H (34.0-46.0) % Lymphocytes # 0.8 L (1.0-4.8) k/uL D-Dimer 1.16 H (<0.60) mg/L FEU Glucose 115 H (74-99) mg/dL Total Bilirubin 0.1 L (0.2-1.3) mg/dL Urine Appearance (Clear) Urine Protein (Negative) Urine WBC (0-5) /hpf Ur Squamous Epith Cells (0-4) /hpf Urine Bacteria (None) /hpf Urine Mucus (None) /hpf 01/12/18 Range/Units 00:37 Hct (34.0-46.0) % Lymphocytes # (1.0-4.8) k/uL D-Dimer (<0.60) mg/L FEU Glucose (74-99) mg/dL Total Bilirubin (0.2-1.3) mg/dL Urine Appearance Cloudy H (Clear) Urine Protein Trace H (Negative) Urine WBC 10 H (0-5) /hpf Ur Squamous Epith Cells 7 H (0-4) /hpf Urine Bacteria Rare H (None) /hpf Urine Mucus Rare H (None) /hpf Thrombosis Risk Factor Assmnt - DVT/VTE Prophylaxis DVT/VTE Prophylaxis: Pharmacologic Prophylaxis ordered - Choose All That Apply Any of the Below Risk Factors Present?: Yes Each Factor Represents 1 point: Age 41-60 years, Obesity (BMI >25) Other Risk Factors: No Other congenital or acquired thrombophilia - If yes, enter type in comment: Yes Each Risk Factor Represents 5 Points: Stroke (< 1 month) Thrombosis Risk Factor Assessment Total Risk Factor Score: 7 Thrombosis Risk Factor Assessment Level: High Risk Assessment and Plan Assessment: Community-acquired pneumonia Acute COPD exacerbation Acute hypoxic respiratory failure secondary to COPD and pneumonia Morbid obesity with BMI 54.1 Brain lesions possible MS and is on follow with neurology clinic Depression DVT prophylaxis Plan: Patient be continued on antibiotics in the form of ceftriaxone and azithromycin. Continue the steroids and breathing treatments and follow up closely. Smoking cessation has been counseled extensively. We'll continue the current management and further recommendations based on the clinical course. Time with Patient: Greater than 30
[2018-01-13] MEDS: ZOLPIDEM 10 MG TAB PO SCH (00:21)
[2018-01-13] MEDS: HYDROcodone/APAP 7.5-325MG 1 EACH TAB PO PRN ×2 (03:06→21:32)
[2018-01-13] MEDS: BUTALB/APAP/CAFF 50-325-40MG TAB PO PRN (03:09)
[2018-01-13] MEDS: cefTRIAXone IN SWFI 1,000 MG/10 ML SYRINGE IVP SCH (06:10)
[2018-01-13] MEDS: FERROUS SULFATE 325 MG TAB PO SCH ×2 (07:54→21:32)
[2018-01-13] MEDS: VERAPAMIL SR 120 MG TABLET.ER PO SCH (07:54)
[2018-01-13] MEDS: PREGABALIN 75 MG CAP PO SCH ×2 (07:54→21:33)
[2018-01-13] MEDS: AZITHROMYCIN 500 MG TAB PO SCH (07:54)
[2018-01-13] MEDS: predniSONE 50 MG TAB PO SCH (07:54)
[2018-01-13] MEDS: TOPIRAMATE 100 MG TAB PO SCH ×2 (07:55→21:33)
[2018-01-13] MEDS: HEPARIN SODIUM,PORCINE 5,000 UNIT/ML 1 ML VIAL SQ SCH ×2 (07:55→21:33)
[2018-01-13] MEDS: ACETAMINOPHEN TAB 500 MG TAB PO PRN (08:01)
[2018-01-13] MEDS: IPRATROPIUM-ALBUTEROL 3 ML NEB INHALATION SCH ×4 (08:06→20:07)
--- NOTE | 2018-01-13 13:55 | P.PN ---
Subjective Progress Note Date: 01/13/18 Principal diagnosis: Acute community acquired left lower lobe pneumonia This is a 47-year-old female, heavy smoker, known to have history of COPD, obesity, depression, possible MS, patient came into the ER last night complaining of 2 days history of cough, wheezing, cough is nonproductive, but it is associated with increased shortness of breath. Patient felt she was breathing underwater. No fevers and no chills were noted. However upon admission she was noted to have a temp of 99.7. And she had a CT of the chest showing no evidence of pulmonary embolism but, but it did show cardiomegaly, lingular infiltrate noted in the left midlung. Patient was admitted, and this consult was initiated. Presently the patient denies any headaches, no blurred vision, no dizziness, no nausea no vomiting no abdominal pain no melena no hematemesis, no dysuria, no frequency no urgency. Her labs basically were unremarkable including a normal CBC and a normal complete metabolic profile. Lactic acid was 1.1. On 01/13/2018 patient seen in follow-up on medical surgical floor. Denies any acute distress. Lung sounds remain very wheezy and patient is very dyspneic with any exertion. She has a loose congested nonproductive cough. Her last febrile episode was on 01/12/2018 at 0406 with a temp of 100.4F.she remains on 4 L per nasal cannula with O2 sat at 94%. Other vitals are stable.no new labs or chest x-ray this morning. Objective - Vital Signs Vital signs: Vital Signs Temp 97.1 F L 01/13/18 06:48 Pulse 84 01/13/18 12:12 Resp 20 01/13/18 06:48 BP 109/58 01/13/18 06:48 Pulse Ox 94 L 01/13/18 06:48 Intake & Output 01/12/18 01/13/18 01/13/18 18:59 06:59 18:59 Intake Total 960 Balance 960 Intake: Oral 960 Other: Voiding Method Toilet Toilet Toilet # Voids 6 2 1 - Exam Physical Exam: Revealed a 47-year-old female, in no distress. HEENT:[Neck is supple.] [No neck masses.] [No thyromegaly.] [No JVD.] Chest: [lung sounds are positive for scattered wheezes. Cardiac Exam: [Normal S1 and S2, no S3 gallop, no murmur.] Abdomen: [Soft, nontender, no megaly, no rebound, no guarding, normal bowel sounds.] Extremities: [No clubbing, no edema, no cyanosis.] Neurological Exam: [No focal neurologic deficit.] Lymphatics: No lymphadenopathy Psychiatric: Normal mood affect and mental status examination Musculoskeletal: Normal range of motion, no deformities, no tenderness. - Labs CBC & Chem 7: 01/11/18 23:50 01/11/18 23:50 Assessment and Plan Plan: Assessment: Acute community-acquired left lower lobe pneumonia Acute exacerbation of COPD Acute hypoxic respiratory failure secondary to pneumonia and COPD. Recommendation: Continue current medical treatment, continue oral prednisone, nebulized treatments,azithromycin and Rocephin. Patient remains very wheezy, dyspneic with exertion. We will add Pulmicort and Perforomist nebulized treatments. I performed a history & physical examination of the patient and discussed their management with my nurse practitioner, Marilee Monte. I reviewed the nurse practitioner's note and agree with the documented findings and plan of care. Lung sounds are positive for scattered wheezes. The findings and the impression was discussed with the patient. I attest to the documentation by the nurse practitioner. Time with Patient: Less than 30
--- NOTE | 2018-01-13 18:42 | P.PN ---
Subjective Progress Note Date: 01/13/18 Progress note being dictated for Dr. Hernandez Interval history:Patient is a 47-year-old female with known history of active smoking, brain lesions with possible MS and recent steroid therapy, depression and morbid obesity came to the hospital with complaints of shortness of breath cough and wheezing. Otherwise currently denied any fever or chills. Patient was found to have elevated d-dimer but a CT angiogram is negative for any pulmonary embolism. CT chest showed lingular infiltrate. Otherwise patient denied any nausea vomiting or diarrhea and abdominal pain. No headache or dizziness or lightheadedness no focal weakness at this time. Patient does have a history of headache and is on currently following with neurology clinic for her pain is management. No dysuria no hematuria. Patient continues to smoke 1 pack per day Review of Systems Constitutional: Patient denies any fever or chills . No generalized weakness or weight loss. Abdomen: Patient denied nausea vomiting and diarrhea and abdominal pain. Cardiovascular: Patient denies any chest pain or short of breath no palpitations. Respiratory: Patient does have cough with minimal sputum production. And shortness of breath and congestion Neurologic: Patient denied any numbness or tingling headache. Musculoskeletal: Patient denies any complaints of joint swelling or deformity. Skin: Negative Psychiatric: Negative Endocrine: No heat or cold intolerance. No recent weight gain. Genitourinary: No dysuria or hematuria. All other 14 point ROS negative except the above 01/13/2018 maintained on nebulized bronchodilators, steroids, IV antibiotics with breathing slow to improve. Productive cough with minimal yellowish-brown sputum. Maintaining O2 sats in the mid to lower 90s on 4 L nasal cannula. T- max 100.4. Good diet intake with no nausea or vomiting. Objective - Vital Signs Vital signs: Vital Signs Temp 98.7 F 01/13/18 14:52 Pulse 82 01/13/18 15:57 Resp 20 01/13/18 14:52 BP 132/75 01/13/18 14:52 Pulse Ox 92 L 01/13/18 14:52 Intake & Output 01/12/18 01/13/18 01/13/18 18:59 06:59 18:59 Intake Total 960 Balance 960 Intake: Oral 960 Other: Voiding Method Toilet Toilet Toilet # Voids 6 2 1 - Exam Patient is lying in the bed comfortably, no acute distress, awake alert and oriented.. HEENT: Normocephalic. Neck is supple. Pupils reactive. Nostrils clear. Oral cavity is moist. Ears reveal no drainage. Neck reveals no JVD, carotid bruits, or thyromegaly. CHEST EXAMINATION: Trachea is central. Symmetrical expansion. Bilateral diminished air entry with expiratory wheezing CARDIAC: Normal S1, S2 with no gallops. No murmurs ABDOMEN: Soft. Bowel sounds normal. No organomegaly. No abdominal bruits. Extremities: reveal no edema. No clubbing or cyanosis Neurologically awake, alert, oriented x3 with well-coordinated movements. No focal deficits noted Skin: No rash or skin lesions. Psychiatric: Cooperative. Nonsuicidal Musculoskeletal: No joint swelling or deformity. Normal range of motion. - Labs CBC & Chem 7: 01/11/18 23:50 01/11/18 23:50 Assessment and Plan Assessment: Community-acquired pneumonia Acute COPD exacerbation Acute hypoxic respiratory failure secondary to COPD and pneumonia Morbid obesity with BMI 54.1 Brain lesions possible MS and is on follow with neurology clinic Depression DVT prophylaxis Plan: Patient be continued on nebulized bronchodilators, oral steroids,antibiotics; ceftriaxone and azithromycin. Smoking cessation readdressed. Follow closely with pulmonary. The impression and plan of care has been dictated as directed. : I performed a history and examination of this patient, discussed the same with the dictator. I agree with the dictator's note ,documented as a scribe. Any additional findings or plans will be noted.
[2018-01-13] MEDS: FORMOTEROL FUMARATE 20 MCG/2 ML NEBU INHALATION SCH (20:07)
[2018-01-13] MEDS: BUDESONIDE 1 MG/2 ML NEBU INHALATION SCH (20:07)
[2018-01-13] MEDS: LISINOPRIL 10 MG TAB PO SCH (21:32)
[2018-01-13] MEDS: amLODIPine 5 MG TAB PO SCH (21:33)
[2018-01-13] MEDS: DULoxetine HCL 60 MG CAPSULE.DR PO SCH (21:33)
[2018-01-13] MEDS ORDERED: NICOTINE 21MG/24HR PATCH TRANSDERM STA (23:55)
[2018-01-14] MEDS: ZOLPIDEM 10 MG TAB PO SCH ×2 (00:49→23:45)
[2018-01-14] MEDS: cefTRIAXone IN SWFI 1,000 MG/10 ML SYRINGE IVP SCH (05:37)
[2018-01-14] MEDS: HEPARIN SODIUM,PORCINE 5,000 UNIT/ML 1 ML VIAL SQ SCH ×2 (08:13→20:13)
[2018-01-14] MEDS: predniSONE 50 MG TAB PO SCH (08:13)
[2018-01-14] MEDS: VERAPAMIL SR 120 MG TABLET.ER PO SCH (08:13)
[2018-01-14] MEDS: FERROUS SULFATE 325 MG TAB PO SCH ×2 (08:13→20:31)
[2018-01-14] MEDS: AZITHROMYCIN 500 MG TAB PO SCH (08:13)
[2018-01-14] MEDS: TOPIRAMATE 100 MG TAB PO SCH ×2 (08:13→20:13)
[2018-01-14] MEDS: HYDROcodone/APAP 7.5-325MG 1 EACH TAB PO PRN ×2 (08:13→20:12)
[2018-01-14] MEDS: PREGABALIN 75 MG CAP PO SCH ×2 (08:13→20:12)
[2018-01-14] MEDS: BUTALB/APAP/CAFF 50-325-40MG TAB PO PRN (08:16)
[2018-01-14 08:42] LABS: Basophils # (A) 0.1 k/uL (0-0.2); Basophils % (A) 1 %; Eosinophils # (A) 0.1 k/uL (0-0.7); Eosinophils % (A) 2 %; HCT 43.5 % (34.0-46.0); Hypochromasia Marked; Lymphocytes # (A) 2.1 k/uL (1.0-4.8); Lymphocytes % (A) 29 %; MCH 27.7 pg (25.0-35.0); MCHC 29.8 g/dL (31.0-37.0); Mean Platelet Volume 8.2; Monocytes # (A) 0.5 k/uL (0-1.0); Monocytes % (A) 7 %; Neutrophils # (A) 4.3 k/uL (1.3-7.7); Neutrophils % (A) 60 %; Platelet Count 234 k/uL (150-450); RBC 4.68 m/uL (3.80-5.40); WBC 7.1 k/uL (3.8-10.6)
[2018-01-14 09:03] LABS: Anion Gap 9 mmol/L; Blood Urea Nitrogen 18 mg/dL (7-17); Calcium 8.9 mg/dL (8.4-10.2); Carbon Dioxide 27 mmol/L (22-30); Chloride 104 mmol/L (98-107); Glucose 96 mg/dL (74-99); Potassium 4.3 mmol/L (3.5-5.1); Sodium 140 mmol/L (137-145)
[2018-01-14] MEDS: BUDESONIDE 1 MG/2 ML NEBU INHALATION SCH ×2 (09:13→19:10)
[2018-01-14] MEDS: IPRATROPIUM-ALBUTEROL 3 ML NEB INHALATION SCH ×4 (09:13→19:10)
[2018-01-14] MEDS: FORMOTEROL FUMARATE 20 MCG/2 ML NEBU INHALATION SCH ×2 (09:13→19:10)
--- NOTE | 2018-01-14 15:03 | P.PN ---
Subjective Progress Note Date: 01/14/18 Principal diagnosis: Acute community acquired left lower lobe pneumonia This is a 47-year-old female, heavy smoker, known to have history of COPD, obesity, depression, possible MS, patient came into the ER last night complaining of 2 days history of cough, wheezing, cough is nonproductive, but it is associated with increased shortness of breath. Patient felt she was breathing underwater. No fevers and no chills were noted. However upon admission she was noted to have a temp of 99.7. And she had a CT of the chest showing no evidence of pulmonary embolism but, but it did show cardiomegaly, lingular infiltrate noted in the left midlung. Patient was admitted, and this consult was initiated. Presently the patient denies any headaches, no blurred vision, no dizziness, no nausea no vomiting no abdominal pain no melena no hematemesis, no dysuria, no frequency no urgency. Her labs basically were unremarkable including a normal CBC and a normal complete metabolic profile. Lactic acid was 1.1. On 01/13/2018 patient seen in follow-up on medical surgical floor. Denies any acute distress. Lung sounds remain very wheezy and patient is very dyspneic with any exertion. She has a loose congested nonproductive cough. Her last febrile episode was on 01/12/2018 at 0406 with a temp of 100.4F.she remains on 4 L per nasal cannula with O2 sat at 94%. Other vitals are stable.no new labs or chest x-ray this morning. On 01/14/2018 patient seen in follow-up in medical surgical floor. Sounds remain positive for diffuse wheezes throughout, but patient is able to ambulate in the room, able to tolerate activity better. She was up taken a shower this morning. Remains on 4 L per nasal cannula with pulse ox is 94%. Afebrile, sputum culture is pending. Lab work was reviewed, WBC is 7.1, electrolytes are within normal limits, B1 is 18, creatinine 0.67. She is on a combination of Zithromax and Rocephin, nebulized treatments, prednisone 50 mg daily. Present medical treatment, continue increasing activity as tolerated. Anticipate discharge in the next 24 hours. Objective - Vital Signs Vital signs: Vital Signs Temp 97.4 F L 02/20/18 07:00 Pulse 84 01/14/18 12:47 Resp 20 01/14/18 07:00 BP 128/71 01/14/18 07:00 Pulse Ox 94 L 01/14/18 07:00 Intake & Output 01/13/18 01/14/18 01/14/18 18:59 06:59 18:59 Weight 142.882 kg Other: Voiding Method Toilet Toilet Toilet # Voids 1 2 2 - Exam Physical Exam: Revealed a 47-year-old female, in no distress. HEENT:[Neck is supple.] [No neck masses.] [No thyromegaly.] [No JVD.] Chest: [lung sounds are positive for scattered wheezes. Cardiac Exam: [Normal S1 and S2, no S3 gallop, no murmur.] Abdomen: [Soft, nontender, no megaly, no rebound, no guarding, normal bowel sounds.] Extremities: [No clubbing, no edema, no cyanosis.] Neurological Exam: [No focal neurologic deficit.] Lymphatics: No lymphadenopathy Psychiatric: Normal mood affect and mental status examination Musculoskeletal: Normal range of motion, no deformities, no tenderness. - Labs CBC & Chem 7: 01/14/18 08:07 01/14/18 08:07 Labs: Abnormal Lab Results - Last 24 Hours (Table) 01/14/18 01/14/18 Range/Units 08:07 08:07 MCHC 29.8 L (31.0-37.0) g/dL BUN 18 H (7-17) mg/dL Microbiology - Last 24 Hours (Table) 01/13/18 20:00 Gram Stain - Preliminary Sputum Assessment and Plan Plan: Assessment: Acute community-acquired left lower lobe pneumonia Acute exacerbation of COPD Acute hypoxic respiratory failure secondary to pneumonia and COPD. Recommendation: Is able to tolerate ambulation within the room, still remains as a for diffuse wheezing throughout the lung [place]. Continue current medical treatment, continue oral prednisone, nebulized treatments,azithromycin and Rocephin. Anticipate discharge in the next 24 hours, provided patient continues to improve. I performed a history & physical examination of the patient and discussed their management with my nurse practitioner, Marilee Monte. I reviewed the nurse practitioner's note and agree with the documented findings and plan of care. Lung sounds are positive for scattered wheezes. The findings and the impression was discussed with the patient. I attest to the documentation by the nurse practitioner. Time with Patient: Less than 30
--- NOTE | 2018-01-14 19:39 | P.PN ---
Subjective Progress Note Date: 01/14/18 Progress note being dictated for Dr. Hernandez Interval history:Patient is a 47-year-old female with known history of active smoking, brain lesions with possible MS and recent steroid therapy, depression and morbid obesity came to the hospital with complaints of shortness of breath cough and wheezing. Otherwise currently denied any fever or chills. Patient was found to have elevated d-dimer but a CT angiogram is negative for any pulmonary embolism. CT chest showed lingular infiltrate. Otherwise patient denied any nausea vomiting or diarrhea and abdominal pain. No headache or dizziness or lightheadedness no focal weakness at this time. Patient does have a history of headache and is on currently following with neurology clinic for her pain is management. No dysuria no hematuria. Patient continues to smoke 1 pack per day Review of Systems Constitutional: Patient denies any fever or chills . No generalized weakness or weight loss. Abdomen: Patient denied nausea vomiting and diarrhea and abdominal pain. Cardiovascular: Patient denies any chest pain or short of breath no palpitations. Respiratory: Patient does have cough with minimal sputum production. And shortness of breath and congestion Neurologic: Patient denied any numbness or tingling headache. Musculoskeletal: Patient denies any complaints of joint swelling or deformity. Skin: Negative Psychiatric: Negative Endocrine: No heat or cold intolerance. No recent weight gain. Genitourinary: No dysuria or hematuria. All other 14 point ROS negative except the above 01/13/2018 maintained on nebulized bronchodilators, steroids, IV antibiotics with breathing slow to improve. Productive cough with minimal yellowish-brown sputum. Maintaining O2 sats in the mid to lower 90s on 4 L nasal cannula. T- max 100.4. Good diet intake with no nausea or vomiting. 01/14/2018 maintained on Zithromax, Rocephin, nebulized bronchodilators and oral steroids .Feeling better today, ambulating and took shower earlier. Wheezing persists. Maintaining O2 sats in the mid 90s on 4 L nasal cannula. Sputum culture pending. Objective - Vital Signs Vital signs: Vital Signs Temp 97.6 F 01/14/18 15:00 Pulse 100 01/14/18 19:27 Resp 18 01/14/18 15:00 BP 133/80 01/14/18 15:00 Pulse Ox 93 L 01/14/18 15:00 Intake & Output 02/01/14/18 01/15/18 06:59 18:59 06:59 Intake Total 480 Balance 480 Weight 142.882 kg Intake: Oral 480 Other: Voiding Method Toilet Toilet # Voids 2 4 - Exam Patient is lying in the bed comfortably, no acute distress, awake alert and oriented.. HEENT: Normocephalic. Neck is supple. Pupils reactive. Nostrils clear. Oral cavity is moist. Ears reveal no drainage. Neck reveals no JVD, carotid bruits, or thyromegaly. CHEST EXAMINATION: Trachea is central. Symmetrical expansion. Bilateral diminished air entry with expiratory wheezing CARDIAC: Normal S1, S2 with no gallops. No murmurs ABDOMEN: Soft. Bowel sounds normal. No organomegaly. No abdominal bruits. Extremities: reveal no edema. No clubbing or cyanosis Neurologically awake, alert, oriented x3 with well-coordinated movements. No focal deficits noted Skin: No rash or skin lesions. Psychiatric: Cooperative. Nonsuicidal Musculoskeletal: No joint swelling or deformity. Normal range of motion. - Labs CBC & Chem 7: 01/14/18 08:07 01/14/18 08:07 Labs: Abnormal Lab Results - Last 24 Hours (Table) 01/14/18 01/14/18 Range/Units 08:07 08:07 MCHC 29.8 L (31.0-37.0) g/dL BUN 18 H (7-17) mg/dL Microbiology - Last 24 Hours (Table) 01/13/18 20:00 Gram Stain - Preliminary Sputum Assessment and Plan Assessment: Community-acquired pneumonia Acute COPD exacerbation Acute hypoxic respiratory failure secondary to COPD and pneumonia Morbid obesity with BMI 54.1 Brain lesions possible MS and is on follow with neurology clinic Depression DVT prophylaxis Plan: Patient be continued on nebulized bronchodilators, oral steroids,antibiotics; ceftriaxone and azithromycin. Increase ambulation as tolerated. Discharge planning in progress for tomorrow pending pulmonary clearance. The impression and plan of care has been dictated as directed. : I performed a history and examination of this patient, discussed the same with the dictator. I agree with the dictator's note ,documented as a scribe. Any additional findings or plans will be noted.
[2018-01-14] MEDS: LISINOPRIL 10 MG TAB PO SCH (20:12)
[2018-01-14] MEDS: amLODIPine 5 MG TAB PO SCH (20:12)
[2018-01-14] MEDS: DULoxetine HCL 60 MG CAPSULE.DR PO SCH (20:13)
[2018-01-14] MEDS: NICOTINE 21MG/24HR PATCH TRANSDERM SCH (20:13)
[2018-01-15] MEDS: BUTALB/APAP/CAFF 50-325-40MG TAB PO PRN (05:55)
[2018-01-15] MEDS: cefTRIAXone IN SWFI 1,000 MG/10 ML SYRINGE IVP SCH (05:55)
[2018-01-15] MEDS: HEPARIN SODIUM,PORCINE 5,000 UNIT/ML 1 ML VIAL SQ SCH ×2 (07:52→22:11)
[2018-01-15] MEDS: PREGABALIN 75 MG CAP PO SCH ×2 (07:53→22:12)
[2018-01-15] MEDS: AZITHROMYCIN 500 MG TAB PO SCH (07:53)
[2018-01-15] MEDS: TOPIRAMATE 100 MG TAB PO SCH ×2 (07:54→22:15)
[2018-01-15] MEDS: VERAPAMIL SR 120 MG TABLET.ER PO SCH (07:54)
[2018-01-15] MEDS: FERROUS SULFATE 325 MG TAB PO SCH ×2 (07:54→22:12)
[2018-01-15] MEDS: predniSONE 50 MG TAB PO SCH (07:54)
[2018-01-15] MEDS: IPRATROPIUM-ALBUTEROL 3 ML NEB INHALATION SCH ×4 (09:22→20:04)
[2018-01-15] MEDS: FORMOTEROL FUMARATE 20 MCG/2 ML NEBU INHALATION SCH ×2 (09:22→20:04)
[2018-01-15] MEDS: BUDESONIDE 1 MG/2 ML NEBU INHALATION SCH ×2 (09:22→20:04)
[2018-01-15 10:31] LABS: Basophils # (A) 0.1 k/uL (0-0.2); Basophils % (A) 1 %; Eosinophils # (A) 0.1 k/uL (0-0.7); Eosinophils % (A) 1 %; HCT 43.4 % (34.0-46.0); HGB 13.3 gm/dL (11.4-16.0); Hypochromasia Moderate; Lymphocytes # (A) 1.7 k/uL (1.0-4.8); Lymphocytes % (A) 20 %; MCH 27.8 pg (25.0-35.0); MCHC 30.6 g/dL (31.0-37.0); MCV 90.9 fL (80.0-100.0); Mean Platelet Volume 7.9; Monocytes # (A) 0.3 k/uL (0-1.0); Monocytes % (A) 4 %; Neutrophils # (A) 6.1 k/uL (1.3-7.7); Neutrophils % (A) 73 %; Platelet Count 251 k/uL (150-450); RBC 4.77 m/uL (3.80-5.40); RDW 14.9 % (11.5-15.5); WBC 8.3 k/uL (3.8-10.6)
--- NOTE | 2018-01-15 10:35 | XR ---
EXAMINATION TYPE: XR chest 2V DATE OF EXAM: 01/15/2018 COMPARISON: Chest x-ray and CTA chest from 3 days ago HISTORY: Pneumonia progress study. TECHNIQUE: Frontal and lateral views of the chest are obtained. FINDINGS: There is no new focal air space opacity, pleural effusion, or pneumothorax seen. There is persistent left basilar opacity. The cardiac silhouette size remains enlarged. The osseous structu res are intact. IMPRESSION: Cardiomegaly with persistent left basilar infiltrate and/or atelectasis. No new infiltra te is seen.
[2018-01-15 11:03] LABS: Anion Gap 8 mmol/L; Blood Urea Nitrogen 16 mg/dL (7-17); Carbon Dioxide 28 mmol/L (22-30); Chloride 104 mmol/L (98-107); Glucose 112 mg/dL (74-99); Potassium 4.1 mmol/L (3.5-5.1); Sodium 140 mmol/L (137-145)
--- NOTE | 2018-01-15 11:14 | P.PN ---
Subjective Progress Note Date: 01/15/18 Patient seen and examined at the bedside on rounds with Dr. Li. Patient is sitting up at the side of the bed eating breakfast. She states that her breathing has improved but she still is short of breath with activity. States when she walks to the bathroom she is not of breath by the time she walks back to the bed. Patient has been weaned down to 2 L nasal cannula from 4 L. She is maintaining oxygen saturations greater than 92%. Patient's oxygen saturation decreased to 94% on room air with activity. Chest x-ray this morning reveals cardiomegaly with persistent left basilar infiltrates and/or atelectasis. Patient remains on azithromycin and ceftriaxone. She remains on oral prednisone. Objective - Vital Signs Vital signs: Vital Signs Temp 98.2 F 01/15/18 06:23 Pulse 97 01/15/18 09:43 Resp 20 01/15/18 06:23 BP 135/77 01/15/18 06:23 Pulse Ox 95 01/15/18 06:23 Intake & Output 01/14/18 01/15/18 01/15/18 18:59 06:59 18:59 Intake Total 480 Balance 480 Weight 142.882 kg Intake: Oral 480 Other: Voiding Method Toilet Toilet # Voids 4 2 - Exam GENERAL: This is a 47-year-old female in no apparent distress at the time of examination. Pleasant and cooperative. HEENT: Head is atraumatic, normocephalic. Pupils are equal, round, and reactive to light. Sclerae anicteric. Conjunctivae are clear. Mucus membranes of the mouth are moist. Neck is supple. RESPIRATORY: Diminished with scattered expiratory wheezing. Nonproductive cough noted. No use of accessory muscles. Patient maintaining oxygen saturation greater than 92% on 2 L nasal cannula. No chest wall tenderness is noted on palpation or with deep breathing. CARDIOVASCULAR: Regular rate and rhythm. S1 and S2 noted. No systolic or diastolic murmur auscultated. No JVD noted. No S3 or S4 noted. GASTROINTESTINAL: Obese. No distention noted. Abdomen soft and round. Normal active bowel sounds auscultated x 4 quadrants. No pain or tenderness noted upon palpation. INTEGUMENTARY: No cyanosis. No jaundice. No rashes noted. No cellulitis noted. EXTREMITIES: 2+ peripheral pulses. No evidence of peripheral edema. No calf tenderness noted. NEUROLOGIC: Cranial nerves II-XII intact. PSYCHIATRIC: Awake, alert, and oriented X 3. Appropriate affect. Intact judgement and insight. - Labs CBC & Chem 7: 01/15/18 09:36 01/14/18 08:07 Labs: Abnormal Lab Results - Last 24 Hours (Table) 01/15/18 Range/Units 09:36 MCHC 30.6 L (31.0-37.0) g/dL Microbiology - Last 24 Hours (Table) 01/13/18 20:00 Gram Stain - Preliminary Sputum Assessment and Plan Plan: ASSESSMENT: Acute community acquired left lower lobe pneumonia Acute exacerbation of chronic obstructive pulmonary disease Acute hypoxic respiratory failure secondary to pneumonia and COPD requiring supplemental oxygen History of brain lesions, possible multiple sclerosis, patient follows outpatient with a neurology clinic Depression, unspecified Severe obesity: BMI 54.1 PLAN: Pulmonary consult. Appreciate recommendations and input Continue antibiotics and oral prednisone Home meds as appropriate Monitor labs GI/DVT prophylaxis Monitor vital signs and address as appropriate Wean oxygen as tolerated. If patient is able to maintain oxygen saturations of 90-92% on room air, she may be discharged home this afternoon If patient is unable to wean off oxygen, possible discharge home tomorrow. May require home o2. Nurse practitioner note has been reviewed by physician. Signing provider agrees with the documented findings, assessment, and plan of care.
[2018-01-15] MEDS: ACETAMINOPHEN TAB 500 MG TAB PO PRN (12:38)
--- NOTE | 2018-01-15 15:32 | P.PN ---
Subjective Progress Note Date: 01/15/18 Principal diagnosis: Acute community acquired left lower lobe pneumonia This is a 47-year-old female, heavy smoker, known to have history of COPD, obesity, depression, possible MS, patient came into the ER last night complaining of 2 days history of cough, wheezing, cough is nonproductive, but it is associated with increased shortness of breath. Patient felt she was breathing underwater. No fevers and no chills were noted. However upon admission she was noted to have a temp of 99.7. And she had a CT of the chest showing no evidence of pulmonary embolism but, but it did show cardiomegaly, lingular infiltrate noted in the left midlung. Patient was admitted, and this consult was initiated. Presently the patient denies any headaches, no blurred vision, no dizziness, no nausea no vomiting no abdominal pain no melena no hematemesis, no dysuria, no frequency no urgency. Her labs basically were unremarkable including a normal CBC and a normal complete metabolic profile. Lactic acid was 1.1. On 01/13/2018 patient seen in follow-up on medical surgical floor. Denies any acute distress. Lung sounds remain very wheezy and patient is very dyspneic with any exertion. She has a loose congested nonproductive cough. Her last febrile episode was on 01/12/2018 at 0406 with a temp of 100.4F.she remains on 4 L per nasal cannula with O2 sat at 94%. Other vitals are stable.no new labs or chest x-ray this morning. On 01/14/2018 patient seen in follow-up in medical surgical floor. Sounds remain positive for diffuse wheezes throughout, but patient is able to ambulate in the room, able to tolerate activity better. She was up taken a shower this morning. Remains on 4 L per nasal cannula with pulse ox is 94%. Afebrile, sputum culture is pending. Lab work was reviewed, WBC is 7.1, electrolytes are within normal limits, B1 is 18, creatinine 0.67. She is on a combination of Zithromax and Rocephin, nebulized treatments, prednisone 50 mg daily. Present medical treatment, continue increasing activity as tolerated. Anticipate discharge in the next 24 hours. On 01/15/2018 patient seen in follow-up on medical surgical floor. She looks better today, she states she feels a bit better as well. She seen up ambulating with a walker and portable oxygen in the hallway, tolerating it well , does desaturate to 82% on 2 L per nasal cannula with ambulation, does require frequent periods of rest. Most likely will require home oxygen at least on a temporary basis. We'll obtain room air pulse ox. lung sounds are improved, still some end expiratory wheezing and bronchospastic cough, however this is much improved from yesterday's exam. She is not producing any sputum. She remains afebrile, vital signs are stable. Sputum cultures pending. No acute events overnight. Objective - Vital Signs Vital signs: Vital Signs Temp 98.2 F 01/15/18 06:23 Pulse 95 01/15/18 11:18 Resp 20 01/15/18 06:23 BP 135/77 01/15/18 06:23 Pulse Ox 92 L 01/15/18 11:18 Intake & Output 01/14/18 01/15/18 01/15/18 18:59 06:59 18:59 Intake Total 480 Balance 480 Weight 142.882 kg Intake: Oral 480 Other: Voiding Method Toilet Toilet # Voids 4 2 - Exam Physical Exam: Revealed a 47-year-old female, in no distress. HEENT:[Neck is supple.] [No neck masses.] [No thyromegaly.] [No JVD.] Chest: [lung sounds are positive for end expiratory wheezing, but this is improved from yesterday's exam Cardiac Exam: [Normal S1 and S2, no S3 gallop, no murmur.] Abdomen: [Soft, nontender, no megaly, no rebound, no guarding, normal bowel sounds.] Extremities: [No clubbing, no edema, no cyanosis.] Neurological Exam: [No focal neurologic deficit.] Lymphatics: No lymphadenopathy Psychiatric: Normal mood affect and mental status examination Musculoskeletal: Normal range of motion, no deformities, no tenderness. - Labs CBC & Chem 7: 01/15/18 09:36 01/15/18 09:36 Labs: Abnormal Lab Results - Last 24 Hours (Table) 01/15/18 01/15/18 Range/Units 09:36 09:36 MCHC 30.6 L (31.0-37.0) g/dL Glucose 112 H (74-99) mg/dL Microbiology - Last 24 Hours (Table) 01/13/18 20:00 Gram Stain - Preliminary Sputum Assessment and Plan Plan: Assessment: Acute community-acquired left lower lobe pneumonia Acute exacerbation of COPD Acute hypoxic respiratory failure secondary to pneumonia and COPD. Recommendation: Continue current medical treatment, will most likely require oxygen at least on a temporary basis when she goes home. She does desat with ambulation even on 2 L per nasal cannula down to 82%. Increase activity, increase ambulation. Continue antibiotics, continue nebulized treatments. I performed a history & physical examination of the patient and discussed their management with my nurse practitioner, Marilee Monte. I reviewed the nurse practitioner's note and agree with the documented findings and plan of care. Lung sounds are positive for scattered wheezes. The findings and the impression was discussed with the patient. I attest to the documentation by the nurse practitioner. Time with Patient: Less than 30
[2018-01-15] MEDS: DULoxetine HCL 60 MG CAPSULE.DR PO SCH (22:12)
[2018-01-15] MEDS: LISINOPRIL 10 MG TAB PO SCH (22:12)
[2018-01-15] MEDS: NICOTINE 21MG/24HR PATCH TRANSDERM SCH (22:12)
[2018-01-15] MEDS: amLODIPine 5 MG TAB PO SCH (22:12)
[2018-01-15] MEDS: ZOLPIDEM 10 MG TAB PO SCH (22:13)
[2018-01-16] MEDS: cefTRIAXone IN SWFI 1,000 MG/10 ML SYRINGE IVP SCH (05:44)
[2018-01-16] MEDS: PREGABALIN 75 MG CAP PO SCH (07:55)
[2018-01-16] MEDS: HEPARIN SODIUM,PORCINE 5,000 UNIT/ML 1 ML VIAL SQ SCH (07:55)
[2018-01-16] MEDS: FERROUS SULFATE 325 MG TAB PO SCH (07:56)
[2018-01-16] MEDS: AZITHROMYCIN 500 MG TAB PO SCH (07:56)
[2018-01-16] MEDS: predniSONE 50 MG TAB PO SCH (07:56)
[2018-01-16] MEDS: VERAPAMIL SR 120 MG TABLET.ER PO SCH (07:57)
[2018-01-16 07:58] VITALS: RESP 18
[2018-01-16] MEDS: BUTALB/APAP/CAFF 50-325-40MG TAB PO PRN (08:04)
[2018-01-16] MEDS: FORMOTEROL FUMARATE 20 MCG/2 ML NEBU INHALATION SCH (08:19)
[2018-01-16] MEDS: IPRATROPIUM-ALBUTEROL 3 ML NEB INHALATION SCH ×3 (08:19→15:17)
[2018-01-16] MEDS: BUDESONIDE 1 MG/2 ML NEBU INHALATION SCH (08:19)
[2018-01-16 08:40] LABS: Basophils # (A) 0.1 k/uL (0-0.2); Basophils % (A) 1 %; Eosinophils # (A) 0.1 k/uL (0-0.7); Eosinophils % (A) 1 %; HCT 44.7 % (34.0-46.0); HGB 13.7 gm/dL (11.4-16.0); Hypochromasia Slight; Lymphocytes # (A) 2.3 k/uL (1.0-4.8); Lymphocytes % (A) 33 %; MCH 27.6 pg (25.0-35.0); MCHC 30.5 g/dL (31.0-37.0); MCV 90.5 fL (80.0-100.0); Mean Platelet Volume 7.7; Monocytes # (A) 0.3 k/uL (0-1.0); Monocytes % (A) 5 %; Neutrophils % (A) 58 %; Platelet Count 298 k/uL (150-450); RBC 4.94 m/uL (3.80-5.40); RDW 14.7 % (11.5-15.5)
[2018-01-16 08:54] LABS: Anion Gap 10 mmol/L; Blood Urea Nitrogen 17 mg/dL (7-17); Calcium 9.3 mg/dL (8.4-10.2); Carbon Dioxide 27 mmol/L (22-30); Chloride 104 mmol/L (98-107); Glucose 88 mg/dL (74-99); Sodium 141 mmol/L (137-145)
[2018-01-16 08:56] LABS: Potassium 4.3 mmol/L (3.5-5.1)
[2018-01-16] MEDS: TOPIRAMATE 100 MG TAB PO SCH (09:18)
--- NOTE | 2018-01-16 09:25 | P.PN ---
Subjective Progress Note Date: 01/16/18 Principal diagnosis: Acute community acquired left lower lobe pneumonia This is a 47-year-old female, heavy smoker, known to have history of COPD, obesity, depression, possible MS, patient came into the ER last night complaining of 2 days history of cough, wheezing, cough is nonproductive, but it is associated with increased shortness of breath. Patient felt she was breathing underwater. No fevers and no chills were noted. However upon admission she was noted to have a temp of 99.7. And she had a CT of the chest showing no evidence of pulmonary embolism but, but it did show cardiomegaly, lingular infiltrate noted in the left midlung. Patient was admitted, and this consult was initiated. Presently the patient denies any headaches, no blurred vision, no dizziness, no nausea no vomiting no abdominal pain no melena no hematemesis, no dysuria, no frequency no urgency. Her labs basically were unremarkable including a normal CBC and a normal complete metabolic profile. Lactic acid was 1.1. On 01/13/2018 patient seen in follow-up on medical surgical floor. Denies any acute distress. Lung sounds remain very wheezy and patient is very dyspneic with any exertion. She has a loose congested nonproductive cough. Her last febrile episode was on 01/12/2018 at 0406 with a temp of 100.4F.she remains on 4 L per nasal cannula with O2 sat at 94%. Other vitals are stable.no new labs or chest x-ray this morning. On 01/14/2018 patient seen in follow-up in medical surgical floor. Sounds remain positive for diffuse wheezes throughout, but patient is able to ambulate in the room, able to tolerate activity better. She was up taken a shower this morning. Remains on 4 L per nasal cannula with pulse ox is 94%. Afebrile, sputum culture is pending. Lab work was reviewed, WBC is 7.1, electrolytes are within normal limits, B1 is 18, creatinine 0.67. She is on a combination of Zithromax and Rocephin, nebulized treatments, prednisone 50 mg daily. Present medical treatment, continue increasing activity as tolerated. Anticipate discharge in the next 24 hours. On 01/15/2018 patient seen in follow-up on medical surgical floor. She looks better today, she states she feels a bit better as well. She seen up ambulating with a walker and portable oxygen in the hallway, tolerating it well , does desaturate to 82% on 2 L per nasal cannula with ambulation, does require frequent periods of rest. Most likely will require home oxygen at least on a temporary basis. We'll obtain room air pulse ox. lung sounds are improved, still some end expiratory wheezing and bronchospastic cough, however this is much improved from yesterday's exam. She is not producing any sputum. She remains afebrile, vital signs are stable. Sputum cultures pending. No acute events overnight. On 01/16/2018 patient seen in follow-up. She is doing very well, denies any acute distress. On room air pulse ox is 91%. Lung sounds are positive only for very minimal end expiratory wheezes, much improved since admission. Vital signs are stable. Sputum culture is pending. Patient has been afebrile. Today 's lab work shows WBC of 7.0, hemoglobin stable at 13.7, electrolytes and renal profile of both within normal limits. Patient is finally starting to bring up some sputum. He has been ambulating the halls and tolerating it very well. She is requesting to go home today. From pulmonary standpoint she is stable for discharge home today. Objective - Vital Signs Vital signs: Vital Signs Temp 97.3 F L 01/16/18 07:00 Pulse 84 01/16/18 08:45 Resp 18 01/16/18 07:00 BP 134/76 01/16/18 07:00 Pulse Ox 91 L 01/16/18 08:19 Intake & Output 01/15/18 01/16/18 01/16/18 18:59 06:59 18:59 Intake Total 480 Balance 480 Intake: Oral 480 Other: # Voids 5 2 # Bowel Movements 1 - Exam Physical Exam: Revealed a 47-year-old female, in no distress. HEENT:[Neck is supple.] [No neck masses.] [No thyromegaly.] [No JVD.] Chest: [lung sounds are positive for minimal faint end expiratory wheezes, and this is continuously improving. Cardiac Exam: [Normal S1 and S2, no S3 gallop, no murmur.] Abdomen: [Soft, nontender, no megaly, no rebound, no guarding, normal bowel sounds.] Extremities: [No clubbing, no edema, no cyanosis.] Neurological Exam: [No focal neurologic deficit.] Lymphatics: No lymphadenopathy Psychiatric: Normal mood affect and mental status examination Musculoskeletal: Normal range of motion, no deformities, no tenderness. - Labs CBC & Chem 7: 01/16/18 08:00 01/16/18 08:00 Labs: Abnormal Lab Results - Last 24 Hours (Table) 01/15/18 01/15/18 01/16/18 Range/Units 09:36 09:36 08:00 MCHC 30.6 L 30.5 L (31.0-37.0) g/dL Glucose 112 H (74-99) mg/dL Microbiology - Last 24 Hours (Table) 01/13/18 20:00 Gram Stain - Preliminary Sputum Sputum Culture - Preliminary Assessment and Plan Plan: Assessment: Acute community-acquired left lower lobe pneumonia Acute exacerbation of COPD Acute hypoxic respiratory failure secondary to pneumonia and COPD. Recommendation: Patient continues to improve, she is now on room air, in maintaining O2 saturations about 90%. Lung sounds are only positive for very faint minimal wheezes, no fevers, no chills, no diaphoresis. She is tolerating ambulation. Vital signs are stable. From pulmonary standpoint she is stable for discharge home today. She will be sent home on outpatient course of Zithromax and Ceftin , prednisone taper, DuoNeb nebulized treatments, Symbicort, and albuterol. She will need follow-up with Dr. Armendariz in the office in one week I performed a history & physical examination of the patient and discussed their management with my nurse practitioner, Marilee Monte. I reviewed the nurse practitioner's note and agree with the documented findings and plan of care. Lung sounds are positive for very minimal faint wheezes. The findings and the impression was discussed with the patient. I attest to the documentation by the nurse practitioner. Time with Patient: Less than 30
[2018-01-16 12:16] VITALS: BMI 54.1
[2018-01-16] MEDS: HYDROcodone/APAP 7.5-325MG 1 EACH TAB PO PRN (15:09)
[2018-01-16 15:15] VITALS: BP 141/77; TEMP 98.7
[2018-01-16 15:27] VITALS: PULSE 82
== END 2018-01-16 16:18 | disposition home or self-care (01) | DRG 193 ==
LOC: EC 23:00 → 4MS4W 01-12 03:02
PROVIDERS: ADMIT Hospitalist; ATTEND Family Medicine
DX: J18.9 Pneumonia, unspecified organism (principal); J96.01 Acute respiratory failure with hypoxia; J44.0 Chronic obstructive pulmonary disease with (acute) lower respiratory infection; J44.1 Chronic obstructive pulmonary disease with (acute) exacerbation; E66.01 Morbid (severe) obesity due to excess calories; F17.210 Nicotine dependence, cigarettes, uncomplicated; F32.9 Major depressive disorder, single episode, unspecified; F41.9 Anxiety disorder, unspecified; I11.9 Hypertensive heart disease without heart failure; R79.1 Abnormal coagulation profile; Z82.49 Family history of ischemic heart disease and other diseases of the circulatory system; Z83.3 Family history of diabetes mellitus; Z86.73 Personal history of transient ischemic attack (TIA), and cerebral infarction without residual deficits; Z88.2 Allergy status to sulfonamides
CPT/HCPCS: 36415; 71045; 71046; 71275; 80048; 80053; 81001; 82550; 82553; 83605; 83735; 83880; 84484; 85025; 85379; 85610; 85730; 87070; 87205; 87502; 93005; 94640; 94760; 96374; 99285

== ENCOUNTER 2018-06-06 13:36 | Emergency (ER) | payer OTHER ==
[2018-06-06 13:49] VITALS: BP 149/77; RESP 20; TEMP 98.7
[2018-06-06] MEDS ORDERED: IPRATROPIUM-ALBUTEROL 3 ML NEB INHALATION STA ×2 (14:03→15:37)
--- NOTE | 2018-06-06 14:07 | ED ---
SOB HPI - General Chief Complaint: Shortness of Breath Stated Complaint: SOB, chest pain, leg swelling Time Seen by Provider: 06/06/18 13:53 Source: patient, family, RN notes reviewed Mode of arrival: wheelchair Limitations: no limitations - History of Present Illness Initial Comments: This a 48-year-old female with a benign past medical history other than smoking for many years who states she was recently tested for COPD and found to be negative who is here today with complaints of shortness of breath for one to 2 days. He also peripheral edema to her lower extremities for last one half to 2 weeks. She states she does have exertional dyspnea no overt chest pain no fevers she has had chills recently however. No known history of heart disease or thyroid disease. She denies any other complaints at this time no other modifying factors. MD Complaint: shortness of breath - Related Data Home Medications Medication Instructions Recorded Confirmed Butalb/APAP/Caff 50-325-40Mg 1 tab PO Q8HR PRN 05/22/17 06/06/18 [Fioricet 50-325-40] DULoxetine HCL [Cymbalta] 60 mg PO HS 05/22/17 06/06/18 Ferrous Sulfate [Feosol] 325 mg PO DAILY 05/22/17 06/06/18 Ibuprofen 800 mg PO BID PRN 05/22/17 06/06/18 Topiramate [Topamax] 100 mg PO BID 05/22/17 06/06/18 Triamterene-Hctz 37.5-25Mg 1 cap PO DAILY 05/22/17 06/06/18 [Dyazide 37.5-25 Capsule] Zolpidem Tartrate 10 mg PO HS 05/22/17 06/06/18 HYDROcodone/APAP 7.5-325MG [[place] 1 tab PO TID 01/12/18 06/06/18 7.5-325] Pregabalin [Lyrica] 150 mg PO TID 01/12/18 06/06/18 amLODIPine BESYLATE/BENAZEPRIL 1 tab PO HS 01/12/18 06/06/18 [amLODIPine BESYLATE/BENAZEPRIL 5-10 mg] Aspirin EC [Ecotrin Low Dose] 81 mg PO DAILY 06/06/18 06/06/18 Loratadine [Claritin] 10 mg PO DAILY 06/06/18 06/06/18 Verapamil Sr [Isoptin Sr] 180 mg PO DAILY 06/06/18 06/06/18 Previous Rx's Medication Instructions Recorded Furosemide [Lasix] 20 mg PO BID #6 tab 06/06/18 methylPREDNISolone Dose Pack 4 mg PO DIRECTED #21 package 06/06/18 [Medrol Dose Pack] Allergies Allergy/AdvReac Type Severity Reaction Status Date / Time Sulfa (Sulfonamide Allergy RAPID Verified 06/06/18 14:55 Antibiotics) HEART RATE AND HIVES Review of Systems ROS Statement: Those systems with pertinent positive or pertinent negative responses have been documented in the HPI. ROS Other: All systems not noted in ROS Statement are negative. Past Medical History Past Medical History: Hypertension Additional Past Medical History / Comment(s): RSD, Lesions on brain, possible MS , Spinal puncture, obesity, dizzy History of Any Multi-Drug Resistant Organisms: None Reported Past Surgical History: Appendectomy Additional Past Surgical History / Comment(s): carpal tunnel Bilateral, cubital tunnel Past Anesthesia/Blood Transfusion Reactions: No Reported Reaction Past Psychological History: Anxiety, Depression Smoking Status: Current every day smoker Past Alcohol Use History: None Reported, Rare Past Drug Use History: Marijuana - Past Family History Mother Family Medical History: No Reported History Father Family Medical History: Coronary Artery Disease (CAD), Diabetes Mellitus, Thyroid Disorder Brother(s) Family Medical History: Diabetes Mellitus General Exam - General Exam Comments Initial Comments: Is a well-developed well-nourished obese female who is awake alert oriented 3 Limitations: no limitations General appearance: alert, in no apparent distress Head exam: Present: atraumatic, normocephalic, normal inspection Eye exam: Present: normal appearance, PERRL, EOMI. Absent: scleral icterus, conjunctival injection, periorbital swelling ENT exam: Present: normal exam, mucous membranes moist Neck exam: Present: normal inspection. Absent: tenderness, meningismus, lymphadenopathy Respiratory exam: Present: decreased breath sounds. Absent: respiratory distress, wheezes, rales, rhonchi, stridor Cardiovascular Exam: Present: regular rate, normal rhythm, normal heart sounds. Absent: systolic murmur, diastolic murmur, rubs, gallop, clicks GI/Abdominal exam: Present: soft, normal bowel sounds. Absent: distended, tenderness, guarding, rebound, rigid Extremities exam: Present: normal inspection, full ROM, normal capillary refill , pedal edema. Absent: tenderness, joint swelling, calf tenderness Back exam: Present: normal inspection Neurological exam: Present: alert, oriented X3, CN II-XII intact Psychiatric exam: Present: normal affect, normal mood Skin exam: Present: warm, dry, intact, normal color. Absent: rash Course Vital Signs 06/06/18 06/06/18 06/06/18 13:39 14:20 14:23 Temperature 98.7 F Pulse Rate 96 73 Respiratory 20 20 Rate Blood Pressure 149/77 O2 Sat by Pulse 96 Oximetry 06/06/18 06/06/18 06/06/18 14:33 16:10 16:18 Temperature Pulse Rate 74 75 75 Respiratory Rate Blood Pressure O2 Sat by Pulse Oximetry - Reevaluation(s) Reevaluation #1: 06/06/18 16:10 Smoking cessation: I did discuss the risks of smoking with the patient including lung disease cancers of various types peripheral vascular disease and benefits of stopping smoking. The total conversation lasting 3.1 minutes. Reevaluation #2: 06/06/18 16:11 Reevaluation after initial treatment reveals increased aeration. Medical Decision Making - Medical Decision Making Patient is x-ray improvement. She'll be discharged we a long discussion regarding the findings to be placed on diuretics she does have inhalers at home and short course of steroids she'll follow-up with Dr. Li in 3 days and return when necessary - Lab Data Result diagrams: 06/06/18 14:20 06/06/18 14:20 Lab Results 06/06/18 06/06/18 06/06/18 Range/Units 14:20 14:20 14:20 WBC 8.5 (3.8-10.6) k/uL RBC 4.80 (3.80-5.40) m/uL Hgb 13.7 (11.4-16.0) gm/dL Hct 42.2 (34.0-46.0) % MCV 87.9 (80.0-100.0) fL MCH 28.6 (25.0-35.0) pg MCHC 32.6 (31.0-37.0) g/dL RDW 15.0 (11.5-15.5) % Plt Count 252 (150-450) k/uL Neutrophils % 72 % Lymphocytes % 20 % Monocytes % 4 % Eosinophils % 2 % Basophils % 1 % Neutrophils # 6.1 (1.3-7.7) k/uL Lymphocytes # 1.7 (1.0-4.8) k/uL Monocytes # 0.3 (0-1.0) k/uL Eosinophils # 0.2 (0-0.7) k/uL Basophils # 0.1 (0-0.2) k/uL PT (9.0-12.0) sec INR (<1.2) APTT (22.0-30.0) sec D-Dimer (<0.60) mg/L FEU Sodium 140 (137-145) mmol/L Potassium 4.1 (3.5-5.1) mmol/L Chloride 109 H (98-107) mmol/L Carbon Dioxide 23 (22-30) mmol/L Anion Gap 8 mmol/L BUN 13 (7-17) mg/dL Creatinine 0.66 (0.52-1.04) mg/dL Est GFR (CKD-EPI)AfAm >90 (>60 ml/min/1.73 sqM) Est GFR (CKD-EPI)NonAf >90 (>60 ml/min/1.73 sqM) Glucose 141 H (74-99) mg/dL Calcium 9.8 (8.4-10.2) mg/dL Magnesium 1.9 (1.6-2.3) mg/dL Total Bilirubin 0.2 (0.2-1.3) mg/dL AST 20 (14-36) U/L ALT 33 (9-52) U/L Alkaline Phosphatase 64 (38-126) U/L Total Creatine Kinase 50 (30-135) U/L CK-MB (CK-2) 1.2 (0.0-2.4) ng/mL CK-MB (CK-2) Rel Index 2.4 Troponin I <0.012 (0.000-0.034) ng/mL NT-Pro-B Natriuret Pep pg/mL Total Protein 6.3 (6.3-8.2) g/dL Albumin 3.7 (3.5-5.0) g/dL TSH 2.990 (0.465-4.680) mIU/L 07/13/18 07/13/18 Range/Units 14:20 14:20 WBC (3.8-10.6) k/uL RBC (3.80-5.40) m/uL Hgb (11.4-16.0) gm/dL Hct (34.0-46.0) % MCV (80.0-100.0) fL MCH (25.0-35.0) pg MCHC (31.0-37.0) g/dL RDW (11.5-15.5) % Plt Count (150-450) k/uL Neutrophils % % Lymphocytes % % Monocytes % % Eosinophils % % Basophils % % Neutrophils # (1.3-7.7) k/uL Lymphocytes # (1.0-4.8) k/uL Monocytes # (0-1.0) k/uL Eosinophils # (0-0.7) k/uL Basophils # (0-0.2) k/uL PT 9.4 (9.0-12.0) sec INR 0.9 (<1.2) APTT 21.9 L (22.0-30.0) sec D-Dimer 0.46 (<0.60) mg/L FEU Sodium (137-145) mmol/L Potassium (3.5-5.1) mmol/L Chloride (98-107) mmol/L Carbon Dioxide (22-30) mmol/L Anion Gap mmol/L BUN (7-17) mg/dL Creatinine (0.52-1.04) mg/dL Est GFR (CKD-EPI)AfAm (>60 ml/min/1.73 sqM) Est GFR (CKD-EPI)NonAf (>60 ml/min/1.73 sqM) Glucose (74-99) mg/dL Calcium (8.4-10.2) mg/dL Magnesium (1.6-2.3) mg/dL Total Bilirubin (0.2-1.3) mg/dL AST (14-36) U/L ALT (9-52) U/L Alkaline Phosphatase (38-126) U/L Total Creatine Kinase (30-135) U/L CK-MB (CK-2) (0.0-2.4) ng/mL CK-MB (CK-2) Rel Index Troponin I (0.000-0.034) ng/mL NT-Pro-B Natriuret Pep 43 pg/mL Total Protein (6.3-8.2) g/dL Albumin (3.5-5.0) g/dL TSH (0.465-4.680) mIU/L - EKG Data -: EKG Interpreted by Me EKG shows normal: sinus rhythm (EKG reveals sinus rhythm a 75 appear interval 146 respirations 70 QT since QTC 380/424 possible left atrial enlargement low- voltage QRS no acute changes.) - Radiology Data Radiology results: report reviewed (I did review the imaging and report some mild heart failure evidence), image reviewed Disposition Clinical Impression: Acute bronchospasm, Peripheral edema, Smoking Disposition: HOME SELF-CARE Condition: Good Instructions: Bronchospasm (ED), Edema (ED), How to Stop Smoking (ED) Prescriptions: Furosemide [Lasix] 20 mg PO BID #6 tab methylPREDNISolone Dose Pack [Medrol Dose Pack] 4 mg PO DIRECTED #21 package Is patient prescribed a controlled substance at d/c from ED?: No Referrals: Erickson Li DO [Primary Care Provider] - 1-2 days
[2018-06-06 14:41] LABS: Basophils # (A) 0.1 k/uL (0-0.2); Basophils % (A) 1 %; Eosinophils # (A) 0.2 k/uL (0-0.7); Eosinophils % (A) 2 %; HCT 42.2 % (34.0-46.0); HGB 13.7 gm/dL (11.4-16.0); Lymphocytes # (A) 1.7 k/uL (1.0-4.8); Lymphocytes % (A) 20 %; MCH 28.6 pg (25.0-35.0); MCHC 32.6 g/dL (31.0-37.0); MCV 87.9 fL (80.0-100.0); Mean Platelet Volume 8.4; Monocytes # (A) 0.3 k/uL (0-1.0); Monocytes % (A) 4 %; Neutrophils # (A) 6.1 k/uL (1.3-7.7); Neutrophils % (A) 72 %; Platelet Count 252 k/uL (150-450); WBC 8.5 k/uL (3.8-10.6)
[2018-06-06 14:44] LABS: ALT 33 U/L (9-52); AST 20 U/L (14-36); Albumin 3.7 g/dL (3.5-5.0); Alkaline Phosphatase 64 U/L (38-126); Anion Gap 8 mmol/L; Blood Urea Nitrogen 13 mg/dL (7-17); Calcium 9.8 mg/dL (8.4-10.2); Carbon Dioxide 23 mmol/L (22-30); Chloride 109 mmol/L (98-107); Glucose 141 mg/dL (74-99); Magnesium 1.9 mg/dL (1.6-2.3); Potassium 4.1 mmol/L (3.5-5.1); Sodium 140 mmol/L (137-145); Total Bilirubin 0.2 mg/dL (0.2-1.3); Total Protein 6.3 g/dL (6.3-8.2)
--- NOTE | 2018-06-06 14:44 | XR ---
EXAMINATION TYPE: XR chest 2V DATE OF EXAM: 06/06/2018 HISTORY: difficulty breathing. REFERENCE: Previous study dated 01/15/2018. FINDINGS: Heart size is mildly prominent. There is vascular congestion and subtle interstitial change . Pleural spaces are clear. IMPRESSION: FINDINGS CONSISTENT WITH MILD HEART FAILURE.
[2018-06-06 14:47] LABS: D-Dimer 0.46 mg/L FEU (<0.60); INR 0.9 (<1.2); Partial Thromboplastin Time 21.9 sec (22.0-30.0); Prothrombin Time 9.4 sec (9.0-12.0)
[2018-06-06 14:55] LABS: Creatine Kinase 50 U/L (30-135)
[2018-06-06 15:08] LABS: Creatine Kinase MB 1.2 ng/mL (0.0-2.4); Troponin I <0.012 ng/mL (0.000-0.034)
[2018-06-06] MEDS ORDERED: FUROSEMIDE 10 MG/ML 4 ML VIAL IV STA (15:32)
[2018-06-06 16:10] VITALS: PULSE 75
== END 2018-06-06 16:36 | disposition home or self-care (01) ==
LOC: EC 13:36
DX: J98.01 Acute bronchospasm (principal); R60.9 Edema, unspecified; F17.200 Nicotine dependence, unspecified, uncomplicated; I10 Essential (primary) hypertension; G90.50 Complex regional pain syndrome I, unspecified; F32.9 Major depressive disorder, single episode, unspecified; F41.9 Anxiety disorder, unspecified; E66.9 Obesity, unspecified; Z68.43 Body mass index [BMI] 50.0-59.9, adult; Z79.891 Long term (current) use of opiate analgesic; Z79.82 Long term (current) use of aspirin; Z79.899 Other long term (current) drug therapy; Z88.2 Allergy status to sulfonamides; Z82.49 Family history of ischemic heart disease and other diseases of the circulatory system
CPT/HCPCS: 99285; 96374; 99406; 36415; 94640 ×2; 93005; 85379; 83880; 80053; 84443; 82550; 82553; 83735; 84484; 85025; 85610; 85730; 87040; 71046; J1940

== ENCOUNTER 2018-09-02 13:11 | Inpatient (IN) | payer OTHER ==
[2018-09-02] MEDS ORDERED: methylPREDNISolone SOD SUCCI 125 MG/2 ML VIAL IV STA (13:38)
[2018-09-02] MEDS ORDERED: IPRATROPIUM-ALBUTEROL 3 ML NEB INHALATION STA (13:38)
--- NOTE | 2018-09-02 13:42 | ED ---
SOB HPI - General Chief Complaint: Shortness of Breath Stated Complaint: diff breathing Time Seen by Provider: 09/02/18 13:26 Source: patient, RN notes reviewed Mode of arrival: wheelchair Limitations: no limitations - History of Present Illness Initial Comments: This a 48-year-old female presents emergency Department chief complaint shortness of breath. Patient states that she believes she aspirated a piece of candy on Saturday or Saturday morning. Patient states that she started with symptoms yesterday worse today. Patient states that she has noticed wheezing and shortness of breath. She does have a history of asthma and is a daily smoker. Patient states she seen Dr. King pulmonology in the past. She has tried some inhalers at home with no relief. Patient reports no fever or chills she states her cough is productive at times. She denies any chest pain, lower extremity swelling, nausea vomiting diarrhea constipation. Patient said no other sick contacts. - Related Data Home Medications Medication Instructions Recorded Confirmed Butalb/APAP/Caff 50-325-40Mg 1 tab PO Q8HR PRN 05/22/17 09/02/18 [Fioricet 50-325-40] DULoxetine HCL [Cymbalta] 60 mg PO HS 05/22/17 09/02/18 Ferrous Sulfate [Feosol] 325 mg PO DAILY 05/22/17 09/02/18 Ibuprofen 800 mg PO BID PRN 05/22/17 09/02/18 Topiramate [Topamax] 100 mg PO BID 05/22/17 09/02/18 Triamterene-Hctz 37.5-25Mg 1 cap PO DAILY 05/22/17 09/02/18 [Dyazide 37.5-25 Capsule] Zolpidem Tartrate 10 mg PO HS 05/22/17 09/02/18 HYDROcodone/APAP 7.5-325MG [[place] 1 tab PO TID 01/12/18 09/02/18 7.5-325] Pregabalin [Lyrica] 150 mg PO TID 01/12/18 09/02/18 amLODIPine BESYLATE/BENAZEPRIL 1 tab PO HS 01/12/18 09/02/18 [amLODIPine BESYLATE/BENAZEPRIL 5-10 mg] Aspirin EC [Ecotrin Low Dose] 81 mg PO DAILY 06/06/18 09/02/18 Loratadine [Claritin] 10 mg PO DAILY 06/06/18 09/02/18 Verapamil Sr [Isoptin Sr] 180 mg PO DAILY 06/06/18 09/02/18 Azithromycin [Zithromax Z-pack] See Taper PO DAILY 09/02/18 09/02/18 Budesonide/Formoterol Fumarate 2 puff INHALATION RT-BID 09/02/18 09/02/18 [Symbicort 160-4.5 Mcg Inhaler] Rizatriptan Odt [Maxalt Powder Worker] 5 mg PO BID PRN 09/02/18 09/02/18 Previous Rx's Medication Instructions Recorded Furosemide [Lasix] 20 mg PO BID #6 tab 06/06/18 Allergies Allergy/AdvReac Type Severity Reaction Status Date / Time Sulfa (Sulfonamide Allergy RAPID Verified 09/02/18 13:44 Antibiotics) HEART RATE AND HIVES Review of Systems ROS Statement: Those systems with pertinent positive or pertinent negative responses have been documented in the HPI. ROS Other: All systems not noted in ROS Statement are negative. Past Medical History Past Medical History: Hypertension Additional Past Medical History / Comment(s): RSD, Lesions on brain, possible MS , Spinal puncture, obesity, dizzy History of Any Multi-Drug Resistant Organisms: None Reported Past Surgical History: Appendectomy Additional Past Surgical History / Comment(s): carpal tunnel Bilateral, Past Anesthesia/Blood Transfusion Reactions: No Reported Reaction Past Psychological History: Anxiety, Depression Smoking Status: Current every day smoker Past Alcohol Use History: None Reported Past Drug Use History: None Reported, Marijuana - Past Family History Mother Family Medical History: No Reported History Father Family Medical History: Coronary Artery Disease (CAD), Diabetes Mellitus, Thyroid Disorder Brother(s) Family Medical History: Diabetes Mellitus General Exam Limitations: no limitations General appearance: alert, in no apparent distress Head exam: Present: atraumatic, normocephalic, normal inspection Eye exam: Present: normal appearance, PERRL, EOMI. Absent: scleral icterus, conjunctival injection, periorbital swelling ENT exam: Present: normal exam, normal oropharynx, mucous membranes moist, TM's normal bilaterally Neck exam: Present: normal inspection, full ROM. Absent: tenderness, meningismus, lymphadenopathy Respiratory exam: Present: respiratory distress (Mild), wheezes (Bilateral throughout), other (Audible wheezing noted). Absent: normal lung sounds bilaterally, rales, rhonchi, stridor Cardiovascular Exam: Present: regular rate, normal rhythm, normal heart sounds. Absent: systolic murmur, diastolic murmur, rubs, gallop, clicks Skin exam: Present: warm, dry, intact, normal color. Absent: rash Course Vital Signs 09/02/18 09/02/18 09/02/18 13:15 13:18 14:08 Temperature 98.5 F Pulse Rate 94 84 Respiratory 22 22 Rate Blood Pressure 105/58 O2 Sat by Pulse 89 L Oximetry 09/02/18 09/02/18 09/02/18 14:22 14:50 15:20 Temperature Pulse Rate 85 86 77 Respiratory 20 Rate Blood Pressure 121/60 O2 Sat by Pulse 93 L Oximetry 09/02/18 15:31 Temperature Pulse Rate 84 Respiratory Rate Blood Pressure O2 Sat by Pulse Oximetry Medical Decision Making - Lab Data Result diagrams: 09/02/18 14:04 09/02/18 14:04 Lab Results 09/02/18 09/02/18 09/02/18 Range/Units 14:04 14:04 14:04 WBC 7.4 (3.8-10.6) k/uL RBC 4.73 (3.80-5.40) m/uL Hgb 13.7 (11.4-16.0) gm/dL Hct 42.6 (34.0-46.0) % MCV 90.0 (80.0-100.0) fL MCH 29.0 (25.0-35.0) pg MCHC 32.3 (31.0-37.0) g/dL RDW 14.7 (11.5-15.5) % Plt Count 235 (150-450) k/uL Neutrophils % 75 % Lymphocytes % 16 % Monocytes % 5 % Eosinophils % 3 % Basophils % 1 % Neutrophils # 5.6 (1.3-7.7) k/uL Lymphocytes # 1.2 (1.0-4.8) k/uL Monocytes # 0.3 (0-1.0) k/uL Eosinophils # 0.2 (0-0.7) k/uL Basophils # 0.1 (0-0.2) k/uL Hypochromasia Slight PT (9.0-12.0) sec INR (<1.2) APTT (22.0-30.0) sec Sodium 141 (137-145) mmol/L Potassium 4.1 (3.5-5.1) mmol/L Chloride 109 H (98-107) mmol/L Carbon Dioxide 22 (22-30) mmol/L Anion Gap 10 mmol/L BUN 12 (7-17) mg/dL Creatinine 0.59 (0.52-1.04) mg/dL Est GFR (CKD-EPI)AfAm >90 (>60 ml/min/1.73 sqM) Est GFR (CKD-EPI)NonAf >90 (>60 ml/min/1.73 sqM) Glucose 143 H (74-99) mg/dL Calcium 8.9 (8.4-10.2) mg/dL Magnesium 2.0 (1.6-2.3) mg/dL Total Bilirubin 0.2 (0.2-1.3) mg/dL AST 22 (14-36) U/L ALT 21 (9-52) U/L Alkaline Phosphatase 64 (38-126) U/L Troponin I (0.000-0.034) ng/mL NT-Pro-B Natriuret Pep 289 pg/mL Total Protein 6.2 L (6.3-8.2) g/dL Albumin 3.4 L (3.5-5.0) g/dL 09/02/18 09/02/18 Range/Units 14:04 14:04 WBC (3.8-10.6) k/uL RBC (3.80-5.40) m/uL Hgb (11.4-16.0) gm/dL Hct (34.0-46.0) % MCV (80.0-100.0) fL MCH (25.0-35.0) pg MCHC (31.0-37.0) g/dL RDW (11.5-15.5) % Plt Count (150-450) k/uL Neutrophils % % Lymphocytes % % Monocytes % % Eosinophils % % Basophils % % Neutrophils # (1.3-7.7) k/uL Lymphocytes # (1.0-4.8) k/uL Monocytes # (0-1.0) k/uL Eosinophils # (0-0.7) k/uL Basophils # (0-0.2) k/uL Hypochromasia PT 9.3 (9.0-12.0) sec INR 0.9 (<1.2) APTT 23.3 (22.0-30.0) sec Sodium (137-145) mmol/L Potassium (3.5-5.1) mmol/L Chloride (98-107) mmol/L Carbon Dioxide (22-30) mmol/L Anion Gap mmol/L BUN (7-17) mg/dL Creatinine (0.52-1.04) mg/dL Est GFR (CKD-EPI)AfAm (>60 ml/min/1.73 sqM) Est GFR (CKD-EPI)NonAf (>60 ml/min/1.73 sqM) Glucose (74-99) mg/dL Calcium (8.4-10.2) mg/dL Magnesium (1.6-2.3) mg/dL Total Bilirubin (0.2-1.3) mg/dL AST (14-36) U/L ALT (9-52) U/L Alkaline Phosphatase (38-126) U/L Troponin I <0.012 (0.000-0.034) ng/mL NT-Pro-B Natriuret Pep pg/mL Total Protein (6.3-8.2) g/dL Albumin (3.5-5.0) g/dL - EKG Data EKG Comments: EKG performed at 13:54 normal sinus rhythm with a rate of 85 [place] 144 QRS 88 QT/ QTC 356/03/17 Disposition Clinical Impression: Asthma with status asthmaticus, Hypoxic Disposition: ADMITTED IP TO THIS HOSP Condition: Fair Referrals: Erickson Li DO [Primary Care Provider] - 1-2 days
[2018-09-02 14:23] LABS: Basophils # (A) 0.1 k/uL (0-0.2); Basophils % (A) 1 %; Eosinophils # (A) 0.2 k/uL (0-0.7); Eosinophils % (A) 3 %; HCT 42.6 % (34.0-46.0); HGB 13.7 gm/dL (11.4-16.0); Hypochromasia Slight; Lymphocytes # (A) 1.2 k/uL (1.0-4.8); Lymphocytes % (A) 16 %; MCHC 32.3 g/dL (31.0-37.0); Mean Platelet Volume 8.2; Monocytes # (A) 0.3 k/uL (0-1.0); Monocytes % (A) 5 %; Neutrophils # (A) 5.6 k/uL (1.3-7.7); Neutrophils % (A) 75 %; Platelet Count 235 k/uL (150-450); RBC 4.73 m/uL (3.80-5.40); RDW 14.7 % (11.5-15.5); WBC 7.4 k/uL (3.8-10.6)
[2018-09-02 14:32] LABS: ALT 21 U/L (9-52); AST 22 U/L (14-36); Albumin 3.4 g/dL (3.5-5.0); Alkaline Phosphatase 64 U/L (38-126); Anion Gap 10 mmol/L; Blood Urea Nitrogen 12 mg/dL (7-17); Calcium 8.9 mg/dL (8.4-10.2); Carbon Dioxide 22 mmol/L (22-30); Chloride 109 mmol/L (98-107); Glucose 143 mg/dL (74-99); Potassium 4.1 mmol/L (3.5-5.1); Sodium 141 mmol/L (137-145); Total Bilirubin 0.2 mg/dL (0.2-1.3); Total Protein 6.2 g/dL (6.3-8.2)
[2018-09-02 14:37] LABS: INR 0.9 (<1.2); Partial Thromboplastin Time 23.3 sec (22.0-30.0); Prothrombin Time 9.3 sec (9.0-12.0)
--- NOTE | 2018-09-02 14:45 | XR ---
EXAMINATION TYPE: XR chest 2V DATE OF EXAM: 09/02/2018 COMPARISON: Chest x-ray June 06, 2018. HISTORY: Shortness of breath and cough since yesterday. TECHNIQUE: Frontal and lateral views of the chest are obtained. FINDINGS: There is no focal air space opacity, pleural effusion, or pneumothorax seen. The cardiac silhouette size is stable and upper limits of normal. The osseous structures are intact. Cholecyste ctomy clips are noted on lateral view. IMPRESSION: No suspicious acute pulmonary infiltrate.
[2018-09-02] MEDS ORDERED: ALBUTEROL NEBULIZED 2.5 MG/3 ML INHALATION STA (15:06)
[2018-09-02] MEDS ORDERED: ALBUTEROL NEBULIZED 2.5 MG/3 ML INHALATION PRN (15:43)
[2018-09-02] MEDS: IPRATROPIUM-ALBUTEROL 3 ML NEB INHALATION SCH ×2 (17:03→18:22)
[2018-09-02] MEDS ORDERED: SUMAtriptan SUCCINATE 50 MG TAB PO PRN (17:40)
[2018-09-02] MEDS ORDERED: IPRATROPIUM-ALBUTEROL 3 ML NEB INHALATION PRN (17:41)
[2018-09-02] MEDS ORDERED: ALPRAZolam 0.25 MG TAB PO PRN (17:42)
[2018-09-02] MEDS ORDERED: ACETAMINOPHEN TAB 500 MG TAB PO PRN (17:42)
[2018-09-02] MEDS ORDERED: TEMAZEPAM 15 MG CAP PO PRN (17:42)
[2018-09-02] MEDS: FORMOTEROL FUMARATE 20 MCG/2 ML NEBU INHALATION SCH (18:21)
[2018-09-02] MEDS: BUDESONIDE 1 MG/2 ML NEBU INHALATION SCH (18:21)
[2018-09-02] MEDS: FUROSEMIDE 20 MG TAB PO SCH (19:21)
[2018-09-02] MEDS: methylPREDNISolone SOD SUCCI 125 MG/2 ML VIAL IV SCH (19:22)
--- NOTE | 2018-09-02 20:03 | HP ---
HISTORY AND PHYSICAL I am covering for Dr. Li. CHIEF COMPLAINT: Shortness of breath. HISTORY OF PRESENT ILLNESS: This 48-year-old woman with a past medical history of multiple medical problems, including RSD, hypertension, history of possible multiple sclerosis, history of spinal puncture, obesity, dizziness, appendectomy, history of anxiety, depression, being followed by Dr. Li in the outpatient setting, was complaining of shortness of breath over the past several days. Patient apparently aspirated a piece of candy on Saturday or Saturday morning. The patient also had increasing shortness of breath, and the patient came to [facility] for further evaluation and treatment. Chest x-ray did not show any acute abnormality. There is no history of any fever, rigors, chills. No history of headache, loss of consciousness, seizures. PAST MEDICAL HISTORY: 1. Hypertension. 2. RSD. 3. History of brain lesion. 4. MS. 5. Spinal puncture. 6. Anxiety. 7. Depression. HOME MEDICATIONS: 1. Norvasc. 2. Benazepril tablets p.o. at bedtime. 3. Ambien 10 mg at bedtime. 4. Isoptin SR 180 mg p.o. daily. 5. Dyazide 37.5/25 mg 1 p.o. daily. 6. Topamax 100 mg p.o. b.i.d. 7. Maxalt 5 mg b.i.d. p.r.n. 8. Lyrica 150 mg p.o. t.i.d. 9. Claritin 10 mg p.o. daily. 10.Ibuprofen 800 mg b.i.d. p.r.n. 11.Hydrocodone 7.5 mg p.o. t.i.d. 12.Lasix 20 mg p.o. b.i.d. 13.Iron sulfate 325 mg p.o. daily. 14.Cymbalta 60 mg p.o. at bedtime. 15.Fioricet 1 tablet q.8 p.r.n. 16.Symbicort 160/4.5 two puffs b.i.d. 17.Zithromax p.o. daily. 18.Ecotrin 81 mg p.o. daily. ALLERGIES: SULFA. FAMILY HISTORY: No history of heart disease or strokes in the family. SOCIAL HISTORY: History of smoking. History of THC. REVIEW OF SYSTEMS: ENT: No diminished hearing. No diminished vision. CARDIOVASCULAR SYSTEM: No angina, palpitations. RESPIRATORY SYSTEM: As mentioned earlier. GI: As mentioned earlier. : No dysuria or retention. NERVOUS SYSTEM: No numbness, weakness. ALLERGY/IMMUNOLOGY: No asthma, hayfever. MUSCULOSKELETAL: As mentioned earlier. HEMATOLOGY/ONCOLOGY: No history of anemia. ENDOCRINE: No history of diabetes, hypothyroidism. CONSTITUTIONAL: As mentioned earlier. DERMATOLOGY: Negative. RHEUMATOLOGY: Negative. PSYCHIATRY: As mentioned earlier. PHYSICAL EXAMINATION: Patient is alert and oriented x3. Pulse 72, blood pressure 99/57, respiration 18 , temperature 97.9, pulse ox 91% on 2 L. HEENT: Conjunctivae normal. Oral mucosa moist. NECK: No jugular venous distention. No carotid bruit. No lymph node enlargement. CARDIOVASCULAR SYSTEM: S1, S2 muffled. No S3. No S4. RESPIRATORY SYSTEM: Breath sounds diminished at the bases. Breathing efforts are markedly increased. Bilateral scattered rhonchi and expiratory wheezing and crackles. Accessory muscles of respiration are also acting. ABDOMEN: Soft, obese, non-tender. No mass palpable. LEGS: No edema. No swelling. NERVOUS SYSTEM: Higher functions as mentioned earlier. Moves all 4 limbs. No focal motor or sensory deficit. LYMPHATICS: No lymph node palpable in neck, axillae or groin. SKIN: No ulcer, rash, bleeding. JOINTS: No active deforming arthropathy. LABS: CBC within normal limits. Chloride is 109, glucose 143, albumin 3.4. ASSESSMENT: 1. Acute bronchial asthma, acute exacerbation, with acute purulent tracheobronchitis. 2. Possible aspiration of a small piece of candy. 3. History of hypertension. 4. History of RSD. 5. History of possible multiple sclerosis. 6. History of obesity. 7. Dizziness. 8. History of carpal tunnel. 9. History of anxiety, depression. 10.Continued ongoing nicotine dependence. 11.Obesity with body mass index of 33.1. RECOMMENDATIONS AND DISCUSSION: In this 48-year-old woman who presented with multiple complex medical issues, we will monitor the patient closely, continue the current medications, continue with symptomatic treatment. I would recommend optimizing the bronchodilator treatment , IV steroids, monitor blood sugars closely. Empiric antibiotics. Closely follow with Pulmonary, Dr. Coles. Guarded prognosis because of multiple complex medical issues. Further recommendations to follow. A copy of this dictation is being forwarded to Dr. Li, who is the primary physician. MMODL / IJN: [id number] / VERA
[2018-09-02] MEDS: LISINOPRIL 10 MG TAB PO SCH (20:11)
[2018-09-02] MEDS: BUTALB/APAP/CAFF 50-325-40MG TAB PO PRN (20:11)
[2018-09-02] MEDS: amLODIPine 5 MG TAB PO SCH (20:11)
[2018-09-02] MEDS: DULoxetine HCL 60 MG CAPSULE.DR PO SCH (20:11)
[2018-09-02] MEDS: TOPIRAMATE 100 MG TAB PO SCH (20:11)
[2018-09-02 20:12] LABS: Appearance,Urine Clear (Clear); Bilirubin,Urine Negative (Negative); Blood,Urine Negative (Negative); Color,Urine Light Yellow; Glucose,Urine (UA) Negative (Negative); Ketones,Urine Negative (Negative); Leukocyte Esterase,Urine Negative (Negative); Nitrite,Urine Negative (Negative); PH, Urine 7.5 (5.0-8.0); Protein,Urine Negative (Negative); Urobilinogen,Urine <2.0 mg/dL (<2.0)
[2018-09-02] MEDS: HYDROcodone/APAP 7.5-325MG 1 EACH TAB PO SCH (20:12)
[2018-09-02 20:21] LABS: Amphetamine Screen,Urine Not Detected (NotDetected); Barbiturate Screen,Urine Detected (NotDetected); Benzodiazepines Screen,Urine Not Detected (NotDetected); Cocaine Screen,Urine Not Detected (NotDetected); Methadone Screen, Urine Not Detected (NotDetected); Opiate Screen,Urine Detected (NotDetected); Oxycodone Screen, Urine Not Detected (NotDetected); Phencyclidine Screen,Urine Not Detected (NotDetected); Tricyclic Antidepressant,Urine Not Detected (NotDetected); Urn Cannabinoid Scrn Not Detected (NotDetected)
[2018-09-02 21:00] LABS: Creatine Kinase 70 U/L (30-135)
[2018-09-02] MEDS ORDERED: BENAZEPRIL PO SCH (21:00)
[2018-09-02] MEDS ORDERED: AMLODIPINE BESYLATE PO SCH (21:00)
[2018-09-02] MEDS ORDERED: [UNRECOGNIZED DRUG - OTHER] PO SCH (21:00)
[2018-09-02 21:12] LABS: Creatine Kinase MB 2.9 ng/mL (0.0-2.4); Troponin I <0.012 ng/mL (0.000-0.034)
[2018-09-02 21:29] LABS: Glucose,Whole Blood 245 mg/dL (75-99)
[2018-09-02] MEDS: HEPARIN SODIUM,PORCINE 5,000 UNIT/ML 1 ML VIAL SQ SCH (22:13)
[2018-09-02] MEDS: INSULIN ASPART 100 UNIT/ML 1 ML 10 ML VIAL SQ SCH (22:14)
[2018-09-02] MEDS: PREGABALIN 75 MG CAP PO SCH (22:14)
[2018-09-03] MEDS: ZOLPIDEM 10 MG TAB PO SCH ×2 (01:20→23:17)
[2018-09-03] MEDS: methylPREDNISolone SOD SUCCI 125 MG/2 ML VIAL IV SCH ×5 (01:21→23:17)
[2018-09-03 02:43] LABS: Basophils % (A) 0 %; Eosinophils % (A) 0 %; HCT 42.2 % (34.0-46.0); HGB 13.5 gm/dL (11.4-16.0); Lymphocytes # (A) 0.8 k/uL (1.0-4.8); Lymphocytes % (A) 12 %; MCH 28.3 pg (25.0-35.0); MCHC 31.9 g/dL (31.0-37.0); MCV 88.6 fL (80.0-100.0); Monocytes # (A) 0.1 k/uL (0-1.0); Monocytes % (A) 2 %; Neutrophils # (A) 6.2 k/uL (1.3-7.7); Neutrophils % (A) 86 %; Platelet Count 239 k/uL (150-450); RBC 4.76 m/uL (3.80-5.40); RDW 14.7 % (11.5-15.5); WBC 7.3 k/uL (3.8-10.6)
[2018-09-03 02:59] LABS: Creatine Kinase 63 U/L (30-135)
[2018-09-03 03:00] LABS: Anion Gap 10 mmol/L; Blood Urea Nitrogen 14 mg/dL (7-17); Calcium 9.5 mg/dL (8.4-10.2); Carbon Dioxide 22 mmol/L (22-30); Chloride 106 mmol/L (98-107); Glucose 244 mg/dL (74-99); Sodium 138 mmol/L (137-145)
[2018-09-03] MEDS ORDERED: NICOTINE 21MG/24HR PATCH TRANSDERM STA (03:03)
[2018-09-03 03:11] LABS: Troponin I <0.012 ng/mL (0.000-0.034)
[2018-09-03] MEDS: IBUPROFEN 800 MG TAB PO PRN (06:44)
[2018-09-03] MEDS: HYDROcodone/APAP 7.5-325MG 1 EACH TAB PO SCH ×3 (06:44→21:14)
[2018-09-03] MEDS: BUTALB/APAP/CAFF 50-325-40MG TAB PO PRN ×2 (06:45→16:43)
[2018-09-03] MEDS: FORMOTEROL FUMARATE 20 MCG/2 ML NEBU INHALATION SCH ×2 (07:21→19:26)
[2018-09-03] MEDS: BUDESONIDE 1 MG/2 ML NEBU INHALATION SCH ×2 (07:21→19:26)
[2018-09-03] MEDS: IPRATROPIUM-ALBUTEROL 3 ML NEB INHALATION SCH ×4 (07:21→19:26)
--- NOTE | 2018-09-03 10:17 | P.CNPUL ---
History of Present Illness Consult date: 09/03/18 Requesting physician: Angella Eagle Reason for consult: dyspnea, cough, asthma Chief complaint: Dyspnea, chest tightness, cough History of present illness: This is a 48-year-old white female patient of Dr. Li, who also sees Dr. Armendariz in the pulmonary office for her history of moderately severe COPD, with an underlying FEV 11.78 liters or 61% of predicted, with FVC of 2.18 L or 60%, presented to the emergency department on 09/02/2018 for evaluation of worsening shortness of breath, chest congestion, chest tightness, wheezing. Patient states that she had episode of choking on Saturday, when she was eating a piece of candy, and reportedly choked on her oral saliva. She was coughing quite extensively, and the next morning her breathing started to get worse. On Saturday she called Dr. Li because of sinus pressure, sinus drainage, and cough. Patient reports production of thick green sputum. She was started on Z- Ashu, and she took 2 doses, with no significant improvement. She did have fevers at home, of 100.3F. No hemoptysis, no chest wall tenderness. Patient presented to the emergency department yesterday for further evaluation and treatment. She is a current smoker, down to half a pack a day. Not on any oxygen, maintenance inhalers include Symbicort and Ventolin. She does have a nebulizer machine at home with nebulized treatments. Patient states recently she found that the insurance company stopped covering Symbicort, but has not called the insurance company to find out if there is an alternative LABA/ICS inhaler that they will cover. Patient states that she has been having swallowing issues, she frequently coughs on thin liquids. She is having bilateral lower extremity weakness, bladder incontinence, blurred vision, and she is currently undergoing workup for MS with Dr. Borrero. She states she had a recent lumbar puncture, and the results were inconclusive reportedly. Chest x -ray was completed and showed no suspicious pulmonary infiltrate. EKG was taking, showed normal sinus rhythm with nonspecific T-wave abnormality, namely T -wave inversion in leads II, III, aVF. Cardiology has been consulted, 3 sets of cardiac enzymes and troponins were negative, proBNP is within normal limits at 289. The rest of the patient's blood work is essentially unremarkable. No leukocytosis, no renal function or electrolyte abnormality. LFTs were within normal limits. Urinalysis is negative. Drug screen was positive for opiates and barbiturates. Patient was started on Rocephin, nebulized bronchodilators, Pulmicort, Perforomist, IV steroids. Review of Systems All systems: negative Constitutional: Denies chills, Denies fever Eyes: denies blurred vision, denies pain Ears, nose, mouth and throat: Denies headache, Denies sore throat Cardiovascular: Denies chest pain, Denies shortness of breath Respiratory: Reports congestion, Reports cough with sputum, Reports dyspnea, Reports respiratory infections, Reports wheezing, Denies cough Gastrointestinal: Denies abdominal pain, Denies diarrhea, Denies nausea, Denies vomiting Genitourinary: Denies dysuria, Denies hematuria Musculoskeletal: Denies myalgias Integumentary: Denies pruritus, Denies rash Neurological: Denies numbness, Denies weakness Psychiatric: Denies anxiety, Denies depression Endocrine: Denies fatigue, Denies weight change Past Medical History Past Medical History: Asthma, Hypertension, Osteoarthritis (OA), Sleep Apnea/ CPAP/BIPAP Additional Past Medical History / Comment(s): 09-02-18 pt wishes to receive a pne vaccine before going home. (RSD), Lesions on brain,"memory issues" possible MS no definitive dx as of yet, Spinal puncture, obesity, peripheral neuropathy diogenes feet/legs arms, migraines, murmur,occular hypertension, History of Any Multi-Drug Resistant Organisms: None Reported Past Surgical History: Appendectomy, Section, Cholecystectomy Additional Past Surgical History / Comment(s): carpal tunnel Bilateral twice, 1 cubital tunnel d&c, spinal puncture Past Anesthesia/Blood Transfusion Reactions: No Reported Reaction, Motion Sickness Additional Past Anesthesia/Blood Transfusion Reaction / Comment(s): clausterphobia. "has had blood in past-no reaction" Smoking Status: Current every day smoker - Past Family History Mother Family Medical History: No Reported History Father Family Medical History: Coronary Artery Disease (CAD), Diabetes Mellitus, Thyroid Disorder Brother(s) Family Medical History: Diabetes Mellitus Medications and Allergies Home Medications Medication Instructions Recorded Confirmed Type Butalb/APAP/Caff 50-325-40Mg 1 tab PO Q8HR PRN 05/22/17 09/02/18 History [Fioricet 50-325-40] DULoxetine HCL [Cymbalta] 60 mg PO HS 05/22/17 09/02/18 History Ferrous Sulfate [Feosol] 325 mg PO DAILY 05/22/17 09/02/18 History Ibuprofen 800 mg PO BID PRN 05/22/17 09/02/18 History Topiramate [Topamax] 100 mg PO BID 05/22/17 09/02/18 History Triamterene-Hctz 37.5-25Mg 1 cap PO DAILY 05/22/17 09/02/18 History [Dyazide 37.5-25 Capsule] Zolpidem Tartrate 10 mg PO HS 05/22/17 09/02/18 History HYDROcodone/APAP 7.5-325MG [[place] 1 tab PO TID 01/12/18 09/02/18 History 7.5-325] Pregabalin [Lyrica] 150 mg PO TID 01/12/18 09/02/18 History amLODIPine BESYLATE/BENAZEPRIL 1 tab PO HS 01/12/18 09/02/18 History [amLODIPine BESYLATE/BENAZEPRIL 5-10 mg] Aspirin EC [Ecotrin Low Dose] 81 mg PO DAILY 06/06/18 09/02/18 History Furosemide [Lasix] 20 mg PO BID #6 tab 06/06/18 09/02/18 Rx Loratadine [Claritin] 10 mg PO DAILY 06/06/18 09/02/18 History Verapamil Sr [Isoptin Sr] 180 mg PO DAILY 06/06/18 09/02/18 History Azithromycin [Zithromax Z-pack] See Taper PO DAILY 09/02/18 09/02/18 History Budesonide/Formoterol Fumarate 2 puff INHALATION RT-BID 09/02/18 09/02/18 History [Symbicort 160-4.5 Mcg Inhaler] Rizatriptan Odt [Maxalt Winemaker] 5 mg PO BID PRN 09/02/18 09/02/18 History Allergies Allergy/AdvReac Type Severity Reaction Status Date / Time Sulfa (Sulfonamide Allergy RAPID Verified 09/02/18 13:44 Antibiotics) HEART RATE AND HIVES Physical Exam Vitals: Vital Signs Temp Pulse Pulse Resp BP BP BP 09/03/18 08:00 97.4 F L 81 16 114/62 09/03/18 04:45 98.4 F 92 16 105/68 09/03/18 04:00 16 09/03/18 01:52 88 09/03/18 01:33 92 09/03/18 00:01 97.9 F 86 16 108/53 09/03/18 00:00 16 09/02/18 20:00 18 09/02/18 19:35 98.3 F 98 15 116/55 09/02/18 18:37 90 18 09/02/18 18:22 92 18 09/02/18 17:42 97.9 F 72 18 99/57 09/02/18 16:56 98.8 F 85 18 125/67 09/02/18 15:31 84 09/02/18 15:20 77 09/02/18 14:50 86 20 121/60 09/02/18 14:22 85 09/02/18 14:08 84 09/02/18 13:18 22 09/02/18 13:15 98.5 F 94 22 105/58 Pulse Ox 09/03/18 08:00 93 L 09/03/18 04:45 91 L 09/03/18 04:00 09/03/18 01:52 09/03/18 01:33 09/03/18 00:01 92 L 09/03/18 00:00 09/02/18 20:00 09/02/18 19:35 93 L 09/02/18 18:37 09/02/18 18:22 09/02/18 17:42 91 L 09/02/18 16:56 92 L 09/02/18 15:31 09/02/18 15:20 09/02/18 14:50 93 L 09/02/18 14:22 09/02/18 14:08 09/02/18 13:18 09/02/18 13:15 89 L Intake and Output 09/02/18 09/03/18 09/03/18 22:59 06:59 14:59 Intake Total 600 Balance 600 Intake: Oral 600 Other: Voiding Method Toilet Toilet Toilet # Voids 1 2 Weight 136.078 kg GENERAL EXAM: Alert, pleasant, morbidly obese 48-year-old white female comfortable in no apparent distress. Patient does become dyspneic with ambulation, has a congested cough HEAD: Normocephalic/atraumatic. EYES: Normal reaction of pupils, equal size. Conjunctiva pink, sclera white. NOSE: Clear with pink turbinates. THROAT: No erythema or exudates. NECK: No masses, no JVD, no thyroid enlargement, no adenopathy. CHEST: No chest wall deformity. Symmetrical expansion. LUNGS: Equal air entry with bibasilar crackles, wheezing on forced exhale maneuver CVS: Regular rate and rhythm, normal S1 and S2, no gallops, no murmurs, no rubs ABDOMEN: Soft, nontender. No hepatosplenomegaly, normal bowel sounds, no guarding or rigidity. EXTREMITIES: No clubbing, no cyanosis, 2+ pulses and upper and lower extremities. There are mild changes of chronic venous stasis in lower extremities MUSCULOSKELETAL: Muscle strength and tone normal. SPINE: No scoliosis or deformity SKIN: No rashes CENTRAL NERVOUS SYSTEM: Alert and oriented -3. No focal deficits, tone is normal in all 4 extremities. PSYCHIATRIC: Alert and oriented -3. Appropriate affect. Intact judgment and insight. Results - Laboratory Findings CBC and BMP: 09/03/18 02:19 09/03/18 02:19 PT/INR, D-dimer PT 9.3 sec (9.0-12.0) 09/02/18 14:04 INR 0.9 (<1.2) 09/02/18 14:04 Abnormal lab findings: Abnormal Labs 09/02/18 09/02/18 09/02/18 14:04 20:00 20:25 Lymphocytes # Chloride 109 H Creatinine Glucose 143 H POC Glucose (mg/dL) CK-MB (CK-2) 2.9 H Total Protein 6.2 L Albumin 3.4 L Urine Opiates Screen Detected H Ur Barbiturates Screen Detected H 09/02/18 09/03/18 09/03/18 21:18 02:19 02:19 Lymphocytes # 0.8 L Chloride Creatinine 0.51 L Glucose 244 H POC Glucose (mg/dL) 245 H CK-MB (CK-2) Total Protein Albumin Urine Opiates Screen Ur Barbiturates Screen 09/03/18 02:19 Lymphocytes # Chloride Creatinine Glucose POC Glucose (mg/dL) CK-MB (CK-2) 3.0 H Total Protein Albumin Urine Opiates Screen Ur Barbiturates Screen - Diagnostic Findings Chest x-ray: report reviewed, image reviewed Additional studies: EKG reviewed Assessment and Plan Plan: Assessment: #1. Acute hypoxic respiratory failure secondary to acute exacerbation of COPD, chest x-ray was reviewed and showed no evidence of acute pulmonary process. This may have been triggered by episode of aspiration on Saturday or by upper respiratory infection #2. Moderately severe COPD, with FEV1 of 61% of predicted, FVC of 60%, GOLD stage II, not oxygen dependent on a regular basis #3. Dysphagia with thin liquids. Patient is currently being worked up for multiple sclerosis #4. Nicotine dependence, chronic and ongoing, currently down to half a pack a day #5. Morbid obesity #6. Anxiety/depression #7. Past medical history of CVA/TIA #8. Hypertension #9. Previous episode of pneumonia in December in the left lower lobe Plan: Agree with the current plan of treatment, continue IV steroids, nebulized bronchodilators, empiric antibiotics. Continue oral Lasix. We'll request speech therapy consultation, for evaluation of patient's swallowing. Chest x- ray has been reviewed, and showed no acute cardiopulmonary process. Cardiology is seeing the patient for the nonspecific T-wave changes seen on the EKG. We' ll continue to follow I performed a history & physical examination of the patient and discussed their management with my nurse practitioner, Marilee Monte. I reviewed the nurse practitioner's note and agree with the documented findings and plan of care. Lung sounds are positive for bibasilar crackles, wheezes on forced exhale maneuver. The findings and the impression was discussed with the patient. I attest to the documentation by the nurse practitioner. Time with Patient: Greater than 30
[2018-09-03] MEDS: INSULIN ASPART 100 UNIT/ML 1 ML 10 ML VIAL SQ SCH ×4 (11:28→21:13)
[2018-09-03] MEDS: PANTOPRAZOLE 40 MG TABLET PO SCH (11:36)
[2018-09-03] MEDS: ASPIRIN 81 MG PO SCH (11:36)
[2018-09-03] MEDS: PREGABALIN 75 MG CAP PO SCH ×3 (11:36→21:13)
[2018-09-03] MEDS: TRIAMTERENE-HCTZ 37.5-25MG 1 EACH CAP PO SCH (11:36)
[2018-09-03] MEDS: HEPARIN SODIUM,PORCINE 5,000 UNIT/ML 1 ML VIAL SQ SCH ×2 (11:36→21:12)
[2018-09-03] MEDS: VERAPAMIL SR 180 MG TABLET.ER PO SCH (11:37)
[2018-09-03] MEDS: LORATADINE 10 MG TAB PO SCH (11:37)
[2018-09-03] MEDS: FERROUS SULFATE 325 MG TAB PO SCH (11:37)
[2018-09-03] MEDS: TOPIRAMATE 100 MG TAB PO SCH ×2 (11:37→23:17)
[2018-09-03] MEDS: FUROSEMIDE 20 MG TAB PO SCH ×2 (11:37→16:41)
--- NOTE | 2018-09-03 13:07 | P.CRDCN ---
History of Present Illness History of present illness: Mrs. So is a pleasant 48-year-old female past medical history significant for hypertension, asthma, obstructive sleep apnea and chronic nicotine dependence. She denies history of coronary artery disease. She recently established with Dr. Bowie in the office 06/2018 and underwent cardiac evaluation with exercise stress test and echocardiogram. Stress test was inconclusive due to baseline EKG abnormalities and echo revealed preserved LV systolic function and moderate pulmonary hypertension with RVSP 50 mmHg. We have been asked to see her in consultation for EKG abnormalities. EKG on admission revealed sinus mechanism with non-specific ST and T wave abnormalitiesinferiorly and laterally. Compared to EKG in the office there is no change. She presented to the hospital with symptoms of cough, shortness of breath and wheezing. She states she coughed and possibly aspirated a piece of candy over the weekend and has been having these symptoms since that time. She denies chest pain, dizziness or palpitations. Upon arrival pulse ox was 89% on room air. She does verbalize feeling improvement in her symptoms since receiving breathing treatment. Chest x-ray is negative for an acute cardiopulmonary process. Laboratory data reviewed, hemoglobin 13.5, platelets 239, sodium 138, potassium 4.0, creatinine 0.5, magnesium 2.0, cardiac enzymes negative 3, NT proBNP 289. Review of Systems At the time of my exam: CONSTITUTIONAL: Denies fever. Denies chills. EYES: Denies blurred vision. Denies vision changes. Denies eye pain. EARS, NOSE, MOUTH & THROAT: Denies headache. Denies sore throat. Denies ear pain. CARDIOVASCULAR: Denies chest pain. complains of shortness of breath. Denies orthopnea. Denies PND. Denies palpitations. RESPIRATORY: Denies cough. GASTROINTESTINAL: Denies abdominal pain. Denies diarrhea. Denies constipation. Denies nausea. Denies vomiting. MUSCULOSKELETAL: Denies myalgias. INTEGUMENTARY: Denies pruitis. Denies rash. NEUROLOGIC: Denies numbness. Denies tingling. Denies weakness. PSYCHIATRIC: Denies anxiety. Denies depression. ENDOCRINE: Denies fatigue. Denies weight change. Denies polydipsia. Denies polyurina. GENITOURINARY: Denies burning, hematuria or urgency with micturation. HEMATOLOGIC: Denies history of anemia. Denies bleeding. Past Medical History Past Medical History: Asthma, Hypertension, Osteoarthritis (OA), Sleep Apnea/ CPAP/BIPAP Additional Past Medical History / Comment(s): 09-02-18 pt wishes to receive a pne vaccine before going home. (RSD), Lesions on brain,"memory issues" possible MS no definitive dx as of yet, Spinal puncture, obesity, peripheral neuropathy diogenes feet/legs arms, migraines, murmur,occular hypertension, History of Any Multi-Drug Resistant Organisms: None Reported Past Surgical History: Appendectomy, Section, Cholecystectomy Additional Past Surgical History / Comment(s): carpal tunnel Bilateral twice, 1 cubital tunnel d&c, spinal puncture Past Anesthesia/Blood Transfusion Reactions: No Reported Reaction, Motion Sickness Additional Past Anesthesia/Blood Transfusion Reaction / Comment(s): clausterphobia. "has had blood in past-no reaction" Smoking Status: Current every day smoker - Past Family History Mother Family Medical History: No Reported History Father Family Medical History: Coronary Artery Disease (CAD), Diabetes Mellitus, Thyroid Disorder Brother(s) Family Medical History: Diabetes Mellitus Medications and Allergies Home Medications Medication Instructions Recorded Confirmed Type Butalb/APAP/Caff 50-325-40Mg 1 tab PO Q8HR PRN 05/22/17 09/02/18 History [Fioricet 50-325-40] DULoxetine HCL [Cymbalta] 60 mg PO HS 05/22/17 09/02/18 History Ferrous Sulfate [Feosol] 325 mg PO DAILY 05/22/17 09/02/18 History Ibuprofen 800 mg PO BID PRN 05/22/17 09/02/18 History Topiramate [Topamax] 100 mg PO BID 05/22/17 09/02/18 History Triamterene-Hctz 37.5-25Mg 1 cap PO DAILY 05/22/17 09/02/18 History [Dyazide 37.5-25 Capsule] Zolpidem Tartrate 10 mg PO HS 05/22/17 09/02/18 History HYDROcodone/APAP 7.5-325MG [[place] 1 tab PO TID 01/12/18 09/02/18 History 7.5-325] Pregabalin [Lyrica] 150 mg PO TID 01/12/18 09/02/18 History amLODIPine BESYLATE/BENAZEPRIL 1 tab PO HS 01/12/18 09/02/18 History [amLODIPine BESYLATE/BENAZEPRIL 5-10 mg] Aspirin EC [Ecotrin Low Dose] 81 mg PO DAILY 06/06/18 09/02/18 History Furosemide [Lasix] 20 mg PO BID #6 tab 06/06/18 09/02/18 Rx Loratadine [Claritin] 10 mg PO DAILY 06/06/18 09/02/18 History Verapamil Sr [Isoptin Sr] 180 mg PO DAILY 06/06/18 09/02/18 History Azithromycin [Zithromax Z-pack] See Taper PO DAILY 09/02/18 09/02/18 History Budesonide/Formoterol Fumarate 2 puff INHALATION RT-BID 09/02/18 09/02/18 History [Symbicort 160-4.5 Mcg Inhaler] Rizatriptan Odt [Maxalt Mouse Breeder] 5 mg PO BID PRN 09/02/18 09/02/18 History Allergies Allergy/AdvReac Type Severity Reaction Status Date / Time Sulfa (Sulfonamide Allergy RAPID Verified 09/02/18 13:44 Antibiotics) HEART RATE AND HIVES Physical Exam Vitals: Vital Signs Temp Pulse Pulse Resp BP BP BP 09/03/18 12:00 97.4 F L 82 18 124/71 09/03/18 11:44 86 09/03/18 11:33 88 09/03/18 08:00 97.4 F L 81 16 114/62 09/03/18 07:42 86 09/03/18 07:32 86 09/03/18 07:31 88 09/03/18 07:21 84 09/03/18 04:45 98.4 F 92 16 105/68 09/03/18 04:00 16 09/03/18 01:52 88 09/03/18 01:33 92 09/03/18 00:01 97.9 F 86 16 108/53 09/03/18 00:00 16 09/02/18 20:00 18 09/02/18 19:35 98.3 F 98 15 116/55 09/02/18 18:37 90 18 09/02/18 18:22 92 18 09/02/18 17:42 97.9 F 72 18 99/57 09/02/18 16:56 98.8 F 85 18 125/67 09/02/18 15:31 84 09/02/18 15:20 77 09/02/18 14:50 86 20 121/60 09/02/18 14:22 85 09/02/18 14:08 84 09/02/18 13:18 22 09/02/18 13:15 98.5 F 94 22 105/58 Pulse Ox 09/03/18 12:00 96 09/03/18 11:44 09/03/18 11:33 09/03/18 08:00 93 L 09/03/18 07:42 09/03/18 07:32 09/03/18 07:31 09/03/18 07:21 09/03/18 04:45 91 L 09/03/18 04:00 09/03/18 01:52 09/03/18 01:33 09/03/18 00:01 92 L 09/03/18 00:00 09/02/18 20:00 09/02/18 19:35 93 L 09/02/18 18:37 09/02/18 18:22 09/02/18 17:42 91 L 09/02/18 16:56 92 L 09/02/18 15:31 09/02/18 15:20 09/02/18 14:50 93 L 09/02/18 14:22 09/02/18 14:08 09/02/18 13:18 09/02/18 13:15 89 L Intake and Output 09/02/18 09/03/18 09/03/18 22:59 06:59 14:59 Intake Total 600 Balance 600 Intake: Oral 600 Other: Voiding Method Toilet Toilet Toilet # Voids 1 2 3 Weight 136.078 kg blood pressure 124/71 heart rate 82 afebrile maintaining oxygen saturation on nasal cannula GENERAL: This is a 48-year-old female in no apparent distress at the time of my examination. Morbidly obese. HEENT: Head is atraumatic, normocephalic. Pupils are equal, round. Sclerae anicteric. Conjunctivae are clear. Mucous membranes of the mouth are moist. Neck is supple. There is no jugular venous distention. No carotid bruit is heard. LUNGS: Expiratory wheezes, no rales or rhonchi. No chest wall tenderness is noted on palpation or with deep breathing. HEART: Regular rate and rhythm without murmurs, rubs or gallops. S1 and S2 heard. ABDOMEN: Soft, nontender. Bowel sounds are heard. No organomegaly noted. EXTREMITIES: No evidence of peripheral edema and no calf tenderness noted. VASCULAR: Radial and dorsalis pedis pulses palpated, no evidence of clubbing. NEUROLOGIC: Patient is awake, alert and oriented x3. Results 09/03/18 02:19 09/03/18 02:19 Cardiac Enzymes 09/02/18 09/02/18 09/02/18 Range/Units 14:04 14:04 20:25 AST 22 (14-36) U/L CK-MB (CK-2) 2.9 H (0.0-2.4) ng/mL Troponin I <0.012 <0.012 (0.000-0.034) ng/mL 09/03/18 Range/Units 02:19 AST (14-36) U/L CK-MB (CK-2) 3.0 H (0.0-2.4) ng/mL Troponin I <0.012 (0.000-0.034) ng/mL Coagulation 09/02/18 Range/Units 14:04 PT 9.3 (9.0-12.0) sec APTT 23.3 (22.0-30.0) sec CBC 09/02/18 09/03/18 Range/Units 14:04 02:19 WBC 7.4 7.3 (3.8-10.6) k/uL RBC 4.73 4.76 (3.80-5.40) m/uL Hgb 13.7 13.5 (11.4-16.0) gm/dL Hct 42.6 42.2 (34.0-46.0) % Plt Count 235 239 (150-450) k/uL Comprehensive Metabolic Panel 09/02/18 09/03/18 Range/Units 14:04 02:19 Sodium 141 138 (137-145) mmol/L Potassium 4.1 4.0 (3.5-5.1) mmol/L Chloride 109 H 106 (98-107) mmol/L Carbon Dioxide 22 22 (22-30) mmol/L BUN 12 14 (7-17) mg/dL Creatinine 0.59 0.51 L (0.52-1.04) mg/dL Glucose 143 H 244 H (74-99) mg/dL Calcium 8.9 9.5 (8.4-10.2) mg/dL AST 22 (14-36) U/L ALT 21 (9-52) U/L Alkaline Phosphatase 64 (38-126) U/L Total Protein 6.2 L (6.3-8.2) g/dL Albumin 3.4 L (3.5-5.0) g/dL Current Medications Generic Name Dose Route Start Last Admin Trade Name Freq PRN Reason Stop Dose Admin Acetaminophen 500 mg 09/02/18 17:42 Tylenol Tab PO Q6HR PRN Fever and/ or Pain Acetaminophen/Butalbital/Caffeine 1 each 09/02/18 17:40 09/03/18 06:45 Fioricet 50-325-40 PO 1 each Q8HR PRN Administration Migraine Headache Hydrocodone Bitart/Acetaminophen 1 each 09/02/18 22:00 09/03/18 06:44 Maynard 7.5-325 PO 1 each TID SUMEET Administration Albuterol Sulfate 2.5 mg 09/02/18 15:43 Ventolin Nebulized INHALATION RT-QID PRN Dyspnea Albuterol/Ipratropium 3 ml 09/02/18 16:00 09/03/18 11:33 Duoneb 0.5 Mg-3 Mg/3 Ml Soln INHALATION 3 ml RT-QID SUMEET Administration Albuterol/Ipratropium 3 ml 09/02/18 17:41 09/03/18 01:33 Duoneb 0.5 Mg-3 Mg/3 Ml Soln INHALATION 3 ml RT-QID PRN Administration Shortness Of Breath Or Wheezing Alprazolam 0.25 mg 09/02/18 17:42 Xanax PO TID PRN Anxiety Amlodipine Besylate 5 mg 09/02/18 21:00 09/02/18 20:11 Norvasc PO 5 mg HS SUMEET Administration Aspirin 81 mg 09/03/18 09:00 09/03/18 11:36 Aspirin PO 81 mg DAILY SUMEET Administration Budesonide 1 mg 09/02/18 20:00 09/03/18 07:21 Pulmicort INHALATION 1 mg RT-BID SUMEET Administration Duloxetine HCl 60 mg 09/02/18 21:00 09/02/18 20:11 Cymbalta PO 60 mg HS SUMEET Administration Ferrous Sulfate 325 mg 09/03/18 12:00 09/03/18 11:37 Feosol PO 325 mg 1200 SUMEET Administration Formoterol Fumarate 20 mcg 09/02/18 20:00 09/03/18 07:21 Perforomist INHALATION 20 mcg RT-BID SUMEET Administration Furosemide 20 mg 09/02/18 18:00 09/03/18 11:37 Lasix PO 20 mg BID@0900,1600 SUMEET Administration Heparin Sodium (Porcine) 5,000 unit 09/02/18 21:00 09/03/18 11:36 Heparin SQ 5,000 unit Q12HR SUMEET Administration Ceftriaxone Sodium 1,000 mg/ 50 mls @ 100 mls/hr 09/02/18 17:45 09/03/18 11: 37 Sodium Chloride IVPB 100 mls/hr Q24HR SUMEET Administration Ibuprofen 800 mg 09/02/18 17:40 09/03/18 06:44 Motrin PO 800 mg BID PRN Administration Pain Insulin Aspart 0 unit 09/02/18 21:00 09/03/18 11:28 Novolog SQ Not Given [facility] Protocol Lisinopril 10 mg 09/02/18 21:00 09/02/18 20:11 Zestril PO 10 mg HS SUMEET Administration Loratadine 10 mg 09/03/18 09:00 09/03/18 11:37 Claritin PO 10 mg DAILY SUMEET Administration Methylprednisolone Sodium Succinate 60 mg 09/02/18 18:00 09/03/18 06:17 Solu-Medrol IV 60 mg Q6HR SUMEET Administration Pantoprazole Sodium 40 mg 09/03/18 07:30 09/03/18 11:36 Protonix PO 40 mg [id number] SUMEET Administration Pregabalin 150 mg 09/02/18 22:00 09/03/18 11:36 Lyrica PO 150 mg TID SUMEET Administration Sumatriptan Succinate 50 mg 09/02/18 17:40 Imitrex PO BID PRN Migraine Headache Temazepam 15 mg 09/02/18 17:42 Restoril PO HS PRN Insomnia Topiramate 100 mg 09/02/18 21:00 09/03/18 11:37 Topamax PO 100 mg BID SUMEET Administration Triamterene/HCTZ 1 each 09/03/18 09:00 09/03/18 11:36 Dyazide PO 1 each DAILY SUMEET Administration Verapamil HCl 180 mg 09/03/18 09:00 09/03/18 11:37 Isoptin Sr PO 180 mg DAILY SUMEET Administration Zolpidem Tartrate 10 mg 09/02/18 21:00 09/03/18 01:20 Ambien PO 10 mg HS SUMEET Administration Intake and Output 09/02/18 09/03/18 09/03/18 22:59 06:59 14:59 Intake Total 600 Balance 600 Intake: Oral 600 Other: Voiding Method Toilet Toilet Toilet # Voids 1 2 3 Weight 136.078 kg 09/03/18 02:19 09/03/18 02:19 Assessment and Plan Assessment: ASSESSMENT Acute hypoxic respiratory failure secondary to possible aspiration and asthma exacerbation Hypertension Baseline EKG abnormalities, no change from previous. Pulmonary hypertension COPD Morbid obesity, BMI 53.1 Chronic nicotine dependence PLAN No acute EKG changes. Ongoing medical management and consultation with pulmonary care team. Follow up with Dr. Bowie as previously scheduled. Thank you kindly for this consultation. Nurse Practitioner note has been reviewed, I agree with a documented findings and plan of care. Patient was seen and examined.
[2018-09-03 14:23] LABS: Hemoglobin A1C 5.9 % (4.0-6.0)
--- NOTE | 2018-09-03 15:04 | PN ---
PROGRESS NOTE DATE OF SERVICE: 09/03/2018 I am covering for Dr. Li. This 48-year-old woman is admitted with bronchial asthma, acute exacerbation, also had abnormal EKG. No chest pain. No palpitations. No fever. Cardiology has seen the patient and recommended outpatient followup. The patient previously had 2 stress tests apparently. The results are not available at this time. PHYSICAL EXAM: Alert and oriented x3. Pulse 82, blood pressure 124/70, respiration 18, temperature 97.4, pulse ox 96% on 2 L. HEENT: Conjunctivae normal. Oral mucosa moist. Neck is no jugular venous distention. No lymph node enlargement. CARDIOVASCULAR SYSTEM: S1, S2, muffled. RESPIRATORY: Breath sounds diminished at the bases, a few scattered rhonchi and expiratory wheezing, no crackles. Abdomen is soft. NERVOUS SYSTEM: No focal deficits. LABS: CBC within normal limits. Glucose is 244. CK-MB is 3. Urine opiates positive. ASSESSMENT: 1. Acute bronchial asthma, acute exacerbation with acute purulent tracheobronchitis. 2. Possible aspiration of a small piece of candy. 3. History of hypertension. 4. History of RSD. 5. History of st/t changes in the EKG with history of outpatient stress test. 6. History of possible multiple sclerosis. 7. History of obesity. 8. Dizziness. 9. History of carpal tunnel syndrome. 10.Anxiety, depression. 11.Continued ongoing nicotine dependence. 12.Obesity with body mass of 33.1. RECOMMENDATION AND DISCUSSION: Recommend to continue current management and symptomatic treatment. Otherwise, as this time I would recommend continue with the current medications. Continue with the bronchodilators. Continue with the steroids otherwise Cardiology, Pulmonology evaluation. Prognosis guarded. Further recommendations to follow. MMODL / IJN: [id number] / MTDD
[2018-09-03 17:18] LABS: Glucose,Whole Blood 125 mg/dL (75-99)
[2018-09-03] MEDS: guaiFENesin 600 MG TABLET.ER PO PRN (18:13)
[2018-09-03 20:44] LABS: Glucose,Whole Blood 204 mg/dL (75-99)
[2018-09-03] MEDS: LISINOPRIL 10 MG TAB PO SCH (21:12)
[2018-09-03] MEDS: amLODIPine 5 MG TAB PO SCH (21:13)
[2018-09-03] MEDS: DULoxetine HCL 60 MG CAPSULE.DR PO SCH (21:15)
[2018-09-03] MEDS: NICOTINE 21MG/24HR PATCH TRANSDERM SCH (23:22)
[2018-09-04] MEDS: methylPREDNISolone SOD SUCCI 125 MG/2 ML VIAL IV SCH ×3 (05:23→18:03)
[2018-09-04] MEDS: guaiFENesin 600 MG TABLET.ER PO PRN ×2 (05:24→16:37)
[2018-09-04 07:18] LABS: Basophils % (A) 0 %; Eosinophils # (A) 0.1 k/uL (0-0.7); Eosinophils % (A) 1 %; HCT 43.8 % (34.0-46.0); HGB 13.9 gm/dL (11.4-16.0); Hypochromasia Slight; Lymphocytes # (A) 1.1 k/uL (1.0-4.8); Lymphocytes % (A) 9 %; MCH 28.6 pg (25.0-35.0); MCHC 31.7 g/dL (31.0-37.0); MCV 90.4 fL (80.0-100.0); Mean Platelet Volume 8.3; Monocytes # (A) 0.3 k/uL (0-1.0); Monocytes % (A) 3 %; Neutrophils # (A) 10.1 k/uL (1.3-7.7); Neutrophils % (A) 87 %; Platelet Count 288 k/uL (150-450); RBC 4.85 m/uL (3.80-5.40); RDW 14.8 % (11.5-15.5); WBC 11.6 k/uL (3.8-10.6)
[2018-09-04 07:20] LABS: Glucose,Whole Blood 169 mg/dL (75-99)
[2018-09-04 07:25] LABS: Anion Gap 8 mmol/L; Blood Urea Nitrogen 20 mg/dL (7-17); Calcium 9.8 mg/dL (8.4-10.2); Carbon Dioxide 24 mmol/L (22-30); Chloride 109 mmol/L (98-107); Glucose 165 mg/dL (74-99); Potassium 4.8 mmol/L (3.5-5.1); Sodium 141 mmol/L (137-145)
[2018-09-04] MEDS: PANTOPRAZOLE 40 MG TABLET PO SCH (07:31)
[2018-09-04] MEDS: INSULIN ASPART 100 UNIT/ML 1 ML 10 ML VIAL SQ SCH ×4 (07:31→22:08)
[2018-09-04] MEDS: IPRATROPIUM-ALBUTEROL 3 ML NEB INHALATION SCH ×4 (08:12→20:20)
[2018-09-04] MEDS: FORMOTEROL FUMARATE 20 MCG/2 ML NEBU INHALATION SCH ×2 (08:12→20:20)
[2018-09-04] MEDS: BUDESONIDE 1 MG/2 ML NEBU INHALATION SCH ×2 (08:12→20:20)
[2018-09-04] MEDS: BUTALB/APAP/CAFF 50-325-40MG TAB PO PRN (09:10)
[2018-09-04] MEDS: ASPIRIN 81 MG PO SCH (09:10)
[2018-09-04] MEDS: FUROSEMIDE 20 MG TAB PO SCH ×2 (09:11→16:37)
[2018-09-04] MEDS: HEPARIN SODIUM,PORCINE 5,000 UNIT/ML 1 ML VIAL SQ SCH ×2 (09:11→22:07)
[2018-09-04] MEDS: PREGABALIN 75 MG CAP PO SCH ×3 (09:11→22:03)
[2018-09-04] MEDS: LORATADINE 10 MG TAB PO SCH (09:11)
[2018-09-04] MEDS: HYDROcodone/APAP 7.5-325MG 1 EACH TAB PO SCH ×3 (09:11→22:04)
[2018-09-04] MEDS: TRIAMTERENE-HCTZ 37.5-25MG 1 EACH CAP PO SCH (09:12)
[2018-09-04] MEDS: TOPIRAMATE 100 MG TAB PO SCH ×2 (09:12→22:06)
[2018-09-04] MEDS: NICOTINE 21MG/24HR PATCH TRANSDERM SCH (09:12)
[2018-09-04] MEDS: VERAPAMIL SR 180 MG TABLET.ER PO SCH (09:13)
--- NOTE | 2018-09-04 11:30 | CDI ---
Last Revision, October 2017 Documentation Clarification Form Date: 09/04/2018 11:19:06 AM From: Angy Kingsley [facility], CCDS Admit Date: 09/03/2018 1:26:00 PM Patient Name: Kim So Visit Number: [id number] Discharge Date: ATTENTION: The Clinical Documentation Specialists (CDI) and [facility] Coding Staff appreciate your assistance in clarifying documentation. Please respond to the clarification below the line at the bottom and electronically sign. The CDI & [facility] Coding staff will review the response and follow-up if needed. Please note: Queries are made part of the Legal Health Record. If you have any questions, please contact the author of this message via ITS. Valentin Portillo MD: Asthma is documented in the History & Physical and also the Pulmonary consult as a history. Per the H/P: "Acute bronchial asthma, acute exacerbation, with acute purulent tracheobronchitis." Also diagnosed with COPD with acute exacerbation & Acute Tracheobronchitis. Patient history/risk factors: Asthma, COPD, hypertension, Obesity w/BMI >50, Smoker, possible MS. Clinical Indicators: Presented with SOB, possible aspiration on a piece of candy. Radiology: CXR: no acute pulmonary infiltrate. Vital Signs: PO 89 room air Treatment: O2 2Lnc, Albuterol INH, IV Solumedrol, IV Rocephin. In your professional opinion, do you agree with the diagnosis of asthma & if so please specify the following: Asthma o Present on Admission: Yes or No If Present: Acute Exacerbation Status asthmaticus Other, please specify Unable to determine Severity: Mild intermittent Mild persistent Moderate persistent Severe persistent Other, please specify Unable to determine Form or Type: Cough variant Childhood Exercise induced bronchospasm Extrinsic allergic Idiosyncratic Intrinsic nonallergic Late-onset Mixed Other, please specify Unable to determine MTDD
[2018-09-04] MEDS: IBUPROFEN 800 MG TAB PO PRN (11:40)
[2018-09-04 12:22] LABS: Glucose,Whole Blood 109 mg/dL (75-99)
[2018-09-04] MEDS: FERROUS SULFATE 325 MG TAB PO SCH (12:24)
--- NOTE | 2018-09-04 13:24 | P.PN ---
Subjective Progress Note Date: 09/04/18 Principal diagnosis: Cough, shortness of breath This is a 48-year-old white female patient of Dr. Li, who also sees Dr. Coles in the pulmonary office for her history of moderately severe COPD, with an underlying FEV1 1.78 liters or 61% of predicted, with FVC of 2.18 L or 60%, presented to the emergency department on 09/02/2018 for evaluation of worsening shortness of breath, chest congestion, chest tightness, wheezing. Patient states that she had episode of choking on Saturday, when she was eating a piece of candy, and reportedly choked on her oral saliva. She was coughing quite extensively, and the next morning her breathing started to get worse. On Saturday she called Dr. Li because of sinus pressure, sinus drainage, and cough. Patient reports production of thick green sputum. She was started on Z- Ashu, and she took 2 doses, with no significant improvement. She did have fevers at home, of 100.3F. No hemoptysis, no chest wall tenderness. Patient presented to the emergency department yesterday for further evaluation and treatment. She is a current smoker, down to half a pack a day. Not on any oxygen, maintenance inhalers include Symbicort and Ventolin. She does have a nebulizer machine at home with nebulized treatments. Patient states recently she found that the insurance company stopped covering Symbicort, but has not called the insurance company to find out if there is an alternative LABA/ICS inhaler that they will cover. Patient states that she has been having swallowing issues, she frequently coughs on thin liquids. She is having bilateral lower extremity weakness, bladder incontinence, blurred vision, and she is currently undergoing workup for MS with Dr. Borrero. She states she had a recent lumbar puncture, and the results were inconclusive reportedly. Chest x -ray was completed and showed no suspicious pulmonary infiltrate. EKG was taking, showed normal sinus rhythm with nonspecific T-wave abnormality, namely T -wave inversion in leads II, III, aVF. Cardiology has been consulted, 3 sets of cardiac enzymes and troponins were negative, proBNP is within normal limits at 289. The rest of the patient's blood work is essentially unremarkable. No leukocytosis, no renal function or electrolyte abnormality. LFTs were within normal limits. Urinalysis is negative. Drug screen was positive for opiates and barbiturates. Patient was started on Rocephin, nebulized bronchodilators, Pulmicort, Perforomist, IV steroids. The patient is seen again today 09/04/2018 in follow-up on the pediatric unit. She is sitting up at the bedside. She is awake and alert in no acute distress. She states her breathing is slightly improved today as compared to yesterday but not quite back to her baseline. She is maintaining good O2 saturations in the 90s on room air. She's been afebrile. Hemodynamically stable. White count 11.6. Hemoglobin 13.9. Creatinine 0.72. She remains on DuoNeb inhalations, Pulmicort and Perforomist inhalations, IV Solu-Medrol. She remains on empiric antibiotics in the form of ceftriaxone. Blood culture reveals no growth. Objective - Vital Signs Vital signs: Vital Signs Temp 97.3 F L 09/04/18 12:23 Pulse 80 09/04/18 12:23 Resp 16 09/04/18 12:23 BP 121/65 09/04/18 12:23 Pulse Ox 94 L 09/04/18 12:23 Intake & Output 09/03/18 09/04/18 09/04/18 18:59 06:59 18:59 Intake Total 644 300 Balance 644 300 Intake: Oral 644 300 Other: Voiding Method Toilet Toilet # Voids 3 2 1 - Exam GENERAL EXAM: Alert, active, comfortable in no apparent distress. HEAD: Normocephalic. EYES: Normal reaction of pupils, equal size. NOSE: Clear with pink turbinates. THROAT: No erythema or exudates. NECK: No masses, no JVD. CHEST: No chest wall deformity. LUNGS: Equal air entry with bilateral end expiratory wheeze. Diminished. CVS: S1 and S2 normal with no audible murmur, regular rhythm. ABDOMEN: No hepatosplenomegaly, normal bowel sounds, no guarding or rigidity. SPINE: No scoliosis or deformity SKIN: No rashes CENTRAL NERVOUS SYSTEM: No focal deficits, tone is normal in all 4 extremities. EXTREMITIES: There is no peripheral edema. No clubbing, no cyanosis. Peripheral pulses are intact. - Labs CBC & Chem 7: 09/04/18 06:45 09/04/18 06:45 Labs: Abnormal Lab Results - Last 24 Hours (Table) 09/03/18 09/03/18 09/04/18 Range/Units 17:15 20:43 06:45 WBC 11.6 H (3.8-10.6) k/uL Neutrophils # 10.1 H (1.3-7.7) k/uL Chloride (98-107) mmol/L BUN (7-17) mg/dL Glucose (74-99) mg/dL POC Glucose (mg/dL) 125 H 204 H (75-99) mg/dL 09/04/18 09/04/18 09/04/18 Range/Units 06:45 07:00 12:21 WBC (3.8-10.6) k/uL Neutrophils # (1.3-7.7) k/uL Chloride 109 H (98-107) mmol/L BUN 20 H (7-17) mg/dL Glucose 165 H (74-99) mg/dL POC Glucose (mg/dL) 169 H 109 H (75-99) mg/dL Microbiology - Last 24 Hours (Table) 09/02/18 14:04 Blood Culture - Preliminary Blood No Growth after 24 hours Assessment and Plan Assessment: Assessment: #1. Acute hypoxic respiratory failure secondary to acute exacerbation of COPD, chest x-ray was reviewed and showed no evidence of acute pulmonary process. This may have been triggered by episode of aspiration on Saturday or by upper respiratory infection. Also secondary to an acute exacerbation of mild persistent extrinsic ALLERGIC asthma. #2. Moderately severe COPD, with FEV1 of 61% of predicted, FVC of 60%, GOLD stage II, not oxygen dependent on a regular basis #3. Dysphagia with thin liquids. Patient is currently being worked up for multiple sclerosis #4. Nicotine dependence, chronic and ongoing, currently down to half a pack a day #5. Morbid obesity #6. Anxiety/depression #7. Past medical history of CVA/TIA #8. Hypertension #9. Previous episode of pneumonia in December in the left lower lobe Plan: The patient was seen and evaluated by Dr. Coles. She is improving but still not quite back to her baseline. Continue with the current treatment plan. She is again educated regarding the importance of complete smoking cessation. A NicoDerm patches in place. We'll increase her activity as tolerated. We'll continue to follow. I, the cosigning physician, performed a history & physical examination of the patient. Lungs sounds with bilateral end expiratory wheeze, diminished. Maintaining good O2 saturations in the 90s on room air. I discussed the assessment and plan of care with my nurse practitioner, Va Loving. I attest to the above note as dictated by her.
--- NOTE | 2018-09-04 14:38 | PN ---
PROGRESS NOTE DATE OF SERVICE: 09/04/2018 I am covering for Dr. Li. HISTORY OF PRESENT ILLNESS: This is a 48-year-old woman who was admitted with acute bronchial asthma, acute exacerbation, being closely monitored. Patient has significant wheezing. The patient is on IV steroids. Patient will be closely monitored. No chest pain. No palpitations. No fever. PHYSICAL EXAM: Alert and oriented x3. Pulse 80, blood pressure 130/66, respirations 16, temperature 97.8, pulse ox 94% on room air. HEENT: Conjunctivae are normal. Oral mucosa moist. Neck is no jugular venous distention. No carotid bruit, no lymph node enlargement. CARDIOVASCULAR SYSTEM: S1, S2, muffled. RESPIRATORY: Breath sounds diminished at the bases. Bilateral scattered rhonchi, no crackles. Expiratory wheezing also present. ABDOMEN: Soft, nontender. No mass palpable. LEGS: No edema, no swelling. NERVOUS SYSTEM: No focal deficits. LABS: WBC 11.6, sodium 140, potassium 4.8, glucose noted. ASSESSMENT: 1. Acute bronchial asthma, acute exacerbation with acute purulent tracheobronchitis. 2. Possible aspiration of a small piece of candy, prior to admission. 3. History of hypertension, history RSD. 4. History of STD changes on the EKG with history of outpatient stress test. 5. History of possible multiple sclerosis. 6. History of obesity. 7. Dizziness. 8. History of carpal tunnel syndrome. 9. Anxiety, depression. 10.Continued ongoing nicotine dependence. 11.Obesity with body mass index of 53.1. RECOMMENDATION: Recommend to continue current management. Continue with IV steroids. Continue with the bronchodilators, antibiotics. Closely follow with Dr. Coles. Guarded prognosis. Further recommendations to follow. The patient is on Rocephin. MMODL / IJN: [id number] /
[2018-09-04 17:01] LABS: Glucose,Whole Blood 152 mg/dL (75-99)
[2018-09-04 21:14] LABS: Glucose,Whole Blood 181 mg/dL (75-99)
[2018-09-04] MEDS: LISINOPRIL 10 MG TAB PO SCH (22:05)
[2018-09-04] MEDS: DULoxetine HCL 60 MG CAPSULE.DR PO SCH (22:07)
[2018-09-04] MEDS: amLODIPine 5 MG TAB PO SCH (22:07)
[2018-09-04] MEDS: ZOLPIDEM 10 MG TAB PO SCH (23:37)
[2018-09-05] MEDS: methylPREDNISolone SOD SUCCI 125 MG/2 ML VIAL IV SCH ×5 (00:02→23:59)
[2018-09-05] MEDS: INSULIN ASPART 100 UNIT/ML 1 ML 10 ML VIAL SQ SCH ×4 (07:30→21:00)
[2018-09-05 07:34] LABS: Glucose,Whole Blood 121 mg/dL (75-99)
[2018-09-05] MEDS: PREGABALIN 75 MG CAP PO SCH ×3 (07:48→22:08)
[2018-09-05] MEDS: HEPARIN SODIUM,PORCINE 5,000 UNIT/ML 1 ML VIAL SQ SCH ×2 (07:48→20:48)
[2018-09-05] MEDS: PANTOPRAZOLE 40 MG TABLET PO SCH (07:49)
[2018-09-05] MEDS: ASPIRIN 81 MG PO SCH (07:49)
[2018-09-05] MEDS: TRIAMTERENE-HCTZ 37.5-25MG 1 EACH CAP PO SCH (07:49)
[2018-09-05] MEDS: LORATADINE 10 MG TAB PO SCH (07:50)
[2018-09-05] MEDS: TOPIRAMATE 100 MG TAB PO SCH ×2 (07:50→20:47)
[2018-09-05] MEDS: BUTALB/APAP/CAFF 50-325-40MG TAB PO PRN (07:51)
[2018-09-05] MEDS: IBUPROFEN 800 MG TAB PO PRN (07:52)
[2018-09-05] MEDS: FORMOTEROL FUMARATE 20 MCG/2 ML NEBU INHALATION SCH ×2 (08:20→20:48)
[2018-09-05] MEDS: BUDESONIDE 1 MG/2 ML NEBU INHALATION SCH ×2 (08:20→20:48)
[2018-09-05] MEDS: IPRATROPIUM-ALBUTEROL 3 ML NEB INHALATION SCH ×4 (08:21→20:48)
[2018-09-05 08:36] LABS: Basophils % (A) 0 %; Eosinophils # (A) 0.1 k/uL (0-0.7); Eosinophils % (A) 1 %; HCT 46.9 % (34.0-46.0); HGB 14.5 gm/dL (11.4-16.0); Hypochromasia Moderate; Lymphocytes # (A) 1.7 k/uL (1.0-4.8); Lymphocytes % (A) 11 %; MCHC 30.9 g/dL (31.0-37.0); MCV 90.8 fL (80.0-100.0); Mean Platelet Volume 8.3; Monocytes # (A) 0.7 k/uL (0-1.0); Monocytes % (A) 5 %; Neutrophils # (A) 11.9 k/uL (1.3-7.7); Neutrophils % (A) 82 %; Platelet Count 329 k/uL (150-450); RBC 5.17 m/uL (3.80-5.40); RDW 14.8 % (11.5-15.5); WBC 14.4 k/uL (3.8-10.6)
[2018-09-05 08:41] LABS: Anion Gap 10 mmol/L; Blood Urea Nitrogen 28 mg/dL (7-17); Calcium 10.4 mg/dL (8.4-10.2); Carbon Dioxide 25 mmol/L (22-30); Chloride 107 mmol/L (98-107); Glucose 123 mg/dL (74-99); Potassium 4.8 mmol/L (3.5-5.1); Sodium 142 mmol/L (137-145)
[2018-09-05] MEDS: HYDROcodone/APAP 7.5-325MG 1 EACH TAB PO SCH ×3 (09:00→22:08)
[2018-09-05] MEDS: FUROSEMIDE 20 MG TAB PO SCH ×2 (09:00→15:56)
[2018-09-05] MEDS: FERROUS SULFATE 325 MG TAB PO SCH (11:52)
[2018-09-05] MEDS: NICOTINE 21MG/24HR PATCH TRANSDERM SCH (12:01)
[2018-09-05 12:13] LABS: Glucose,Whole Blood 133 mg/dL (75-99)
[2018-09-05] MEDS: VERAPAMIL SR 180 MG TABLET.ER PO SCH (13:04)
--- NOTE | 2018-09-05 14:05 | P.PN ---
Subjective Progress Note Date: 09/05/18 Principal diagnosis: Cough, shortness of breath This is a 48-year-old white female patient of Dr. Li, who also sees Dr. Coles in the pulmonary office for her history of moderately severe COPD, with an underlying FEV1 1.78 liters or 61% of predicted, with FVC of 2.18 L or 60%, presented to the emergency department on 09/02/2018 for evaluation of worsening shortness of breath, chest congestion, chest tightness, wheezing. Patient states that she had episode of choking on Saturday, when she was eating a piece of candy, and reportedly choked on her oral saliva. She was coughing quite extensively, and the next morning her breathing started to get worse. On Saturday she called Dr. Li because of sinus pressure, sinus drainage, and cough. Patient reports production of thick green sputum. She was started on Z- Ashu, and she took 2 doses, with no significant improvement. She did have fevers at home, of 100.3F. No hemoptysis, no chest wall tenderness. Patient presented to the emergency department yesterday for further evaluation and treatment. She is a current smoker, down to half a pack a day. Not on any oxygen, maintenance inhalers include Symbicort and Ventolin. She does have a nebulizer machine at home with nebulized treatments. Patient states recently she found that the insurance company stopped covering Symbicort, but has not called the insurance company to find out if there is an alternative LABA/ICS inhaler that they will cover. Patient states that she has been having swallowing issues, she frequently coughs on thin liquids. She is having bilateral lower extremity weakness, bladder incontinence, blurred vision, and she is currently undergoing workup for MS with Dr. Borrero. She states she had a recent lumbar puncture, and the results were inconclusive reportedly. Chest x -ray was completed and showed no suspicious pulmonary infiltrate. EKG was taking, showed normal sinus rhythm with nonspecific T-wave abnormality, namely T -wave inversion in leads II, III, aVF. Cardiology has been consulted, 3 sets of cardiac enzymes and troponins were negative, proBNP is within normal limits at 289. The rest of the patient's blood work is essentially unremarkable. No leukocytosis, no renal function or electrolyte abnormality. LFTs were within normal limits. Urinalysis is negative. Drug screen was positive for opiates and barbiturates. Patient was started on Rocephin, nebulized bronchodilators, Pulmicort, Perforomist, IV steroids. The patient is seen again today 09/04/2018 in follow-up on the pediatric unit. She is sitting up at the bedside. She is awake and alert in no acute distress. She states her breathing is slightly improved today as compared to yesterday but not quite back to her baseline. She is maintaining good O2 saturations in the 90s on room air. She's been afebrile. Hemodynamically stable. White count 11.6. Hemoglobin 13.9. Creatinine 0.72. She remains on DuoNeb inhalations, Pulmicort and Perforomist inhalations, IV Solu-Medrol. She remains on empiric antibiotics in the form of ceftriaxone. Blood culture reveals no growth. The patient is seen again today 09/05/2018 in follow-up on the pediatric unit. She remains awake and alert in no acute distress. She is currently maintaining good O2 saturations in the 90s on room air now. White count 14.4. Hemoglobin 14.5. Creatinine 0.79. Blood culture reveals no growth. She is continued on IV Solu-Medrol, DuoNeb inhalations, Perforomist and Pulmicort inhalations, ceftriaxone. Objective - Vital Signs Vital signs: Vital Signs Temp 98.2 F 09/05/18 00:00 Pulse 81 09/05/18 12:10 Resp 18 09/05/18 11:59 BP 137/74 09/05/18 07:41 Pulse Ox 93 L 09/05/18 07:41 Intake & Output 09/04/18 09/05/18 09/05/18 18:59 06:59 18:59 Intake Total 300 Balance 300 Weight 136.078 kg Intake: Oral 300 Other: # Voids 1 2 2 - Exam GENERAL EXAM: Alert, active, comfortable in no apparent distress. HEAD: Normocephalic. EYES: Normal reaction of pupils, equal size. NOSE: Clear with pink turbinates. THROAT: No erythema or exudates. NECK: No masses, no JVD. CHEST: No chest wall deformity. LUNGS: Equal air entry with bilateral end expiratory wheeze. Diminished. CVS: S1 and S2 normal with no audible murmur, regular rhythm. ABDOMEN: No hepatosplenomegaly, normal bowel sounds, no guarding or rigidity. SPINE: No scoliosis or deformity SKIN: No rashes CENTRAL NERVOUS SYSTEM: No focal deficits, tone is normal in all 4 extremities. EXTREMITIES: There is no peripheral edema. No clubbing, no cyanosis. Peripheral pulses are intact. - Labs CBC & Chem 7: 09/05/18 07:32 09/05/18 07:32 Labs: Abnormal Lab Results - Last 24 Hours (Table) 09/04/18 09/04/18 09/05/18 Range/Units 16:48 21:11 07:29 WBC (3.8-10.6) k/uL Hct (34.0-46.0) % MCHC (31.0-37.0) g/dL Neutrophils # (1.3-7.7) k/uL BUN (7-17) mg/dL Glucose (74-99) mg/dL POC Glucose (mg/dL) 152 H 181 H 121 H (75-99) mg/dL Calcium (8.4-10.2) mg/dL 09/05/18 09/05/18 09/05/18 Range/Units 07:32 07:32 12:12 WBC 14.4 H (3.8-10.6) k/uL Hct 46.9 H (34.0-46.0) % MCHC 30.9 L (31.0-37.0) g/dL Neutrophils # 11.9 H (1.3-7.7) k/uL BUN 28 H (7-17) mg/dL Glucose 123 H (74-99) mg/dL POC Glucose (mg/dL) 133 H (75-99) mg/dL Calcium 10.4 H (8.4-10.2) mg/dL Microbiology - Last 24 Hours (Table) 09/02/18 14:04 Blood Culture - Preliminary Blood No Growth after 48 hours Assessment and Plan Assessment: Assessment: #1. Acute hypoxic respiratory failure secondary to acute exacerbation of COPD, chest x-ray was reviewed and showed no evidence of acute pulmonary process. This may have been triggered by episode of aspiration on Saturday or by upper respiratory infection. Also secondary to an acute exacerbation of mild persistent extrinsic ALLERGIC asthma. #2. Moderately severe COPD, with FEV1 of 61% of predicted, FVC of 60%, GOLD stage II, not oxygen dependent on a regular basis #3. Dysphagia with thin liquids. Patient is currently being worked up for multiple sclerosis #4. Nicotine dependence, chronic and ongoing, currently down to half a pack a day #5. Morbid obesity #6. Anxiety/depression #7. Past medical history of CVA/TIA #8. Hypertension #9. Previous episode of pneumonia in December in the left lower lobe Plan: The patient was seen and evaluated by Dr. Coles. She still not quite back to her baseline. We'll continue with current treatment plan. Plan for discharge in the a.m. She is again educated regarding the importance of complete smoking cessation. A NicoDerm patches in place. We'll increase her activity as tolerated. We'll continue to follow. I, the cosigning physician, performed a history & physical examination of the patient. Lungs sounds with bilateral end expiratory wheeze, diminished. Maintaining good O2 saturations in the 90s on room air. I discussed the assessment and plan of care with my nurse practitioner, Va Loving. I attest to the above note as dictated by her.
--- NOTE | 2018-09-05 15:21 | PN ---
PROGRESS NOTE I am covering for Dr. Li. DATE OF SERVICE: 09/05/2018 This is a 48-year-old woman who was admitted with acute bronchial asthma acute exacerbation. Closely monitor the patient. Still having increase in shortness of breath, wheezing, slightly better as compared to yesterday. Dr. Coles is following the patient closely. Patient is still on IV steroids, no chest pain, no palpitations, no fever. PHYSICAL EXAM: Alert and oriented x3, pulse 85, blood pressure 130/70, [id number], temperature is normal, pulse ox 98% on room air. HEENT: Normal. NECK: No jugular venous distension. CARDIOVASCULAR: S1, S2, muffled. RESPIRATION: Breath sounds diminished at the bases, bilateral scattered rhonchi and expiratory wheezing and crackles. ABDOMEN: Soft, nontender. No mass palpable. LEGS: No edema, no swelling. NERVOUS SYSTEM: Higher functions as mentioned, moves all 4 limbs. LYMPHATICS: No lymph node enlargement in the neck or axillae. SKIN: No rash, ulcer or bleeding. LABS: WBC is 14.4, glucose 133, calcium is 10.4. ASSESSMENT: 1. Acute bronchial asthma acute exacerbation with acute purulent tracheobronchitis. 2. Possible aspiration of small piece of candy prior to admission. 3. History of hypertension. 4. History of RSD. 5. History of ST-T changes in the EKG with a history of outpatient stress test. 6. History of possible multiple sclerosis. 7. History of obesity. 8. Dizziness. 9. History of carpal tunnel syndrome. 10.Anxiety, depression. 11.Continued ongoing nicotine dependence. 12.Obesity, body mass index of 33.1. RECOMMENDATION: Recommend to continue current management and symptomatic treatment. Otherwise at this time continue with steroids, continue with the bronchodilators. Closely follow with Pulmonary, increase ambulation. Further recommendation to follow. Cardiology recommend to follow up with Dr. Bowie as previously scheduled for further evaluation. MMODL / IJN: [id number] /
[2018-09-05] MEDS: guaiFENesin 600 MG TABLET.ER PO PRN (15:56)
[2018-09-05 17:43] LABS: Glucose,Whole Blood 141 mg/dL (75-99)
[2018-09-05] MEDS: DULoxetine HCL 60 MG CAPSULE.DR PO SCH (20:47)
[2018-09-05 20:54] LABS: Glucose,Whole Blood 158 mg/dL (75-99)
[2018-09-05] MEDS: LISINOPRIL 10 MG TAB PO SCH (21:26)
[2018-09-05] MEDS: amLODIPine 5 MG TAB PO SCH (21:27)
[2018-09-06] MEDS: guaiFENesin 600 MG TABLET.ER PO PRN (01:34)
[2018-09-06] MEDS: ZOLPIDEM 10 MG TAB PO SCH (01:34)
[2018-09-06] MEDS: IBUPROFEN 800 MG TAB PO PRN ×2 (01:46→14:56)
[2018-09-06] MEDS: methylPREDNISolone SOD SUCCI 125 MG/2 ML VIAL IV SCH (05:54)
--- NOTE | 2018-09-06 06:29 | P.PN ---
Subjective Progress Note Date: 09/06/18 Principal diagnosis: Asthma exacerbation Progress note dated 09/06/2018 This is a 48-year-old female with a history of a acute hypoxemic respiratory failure secondary to COPD. The patient states that she's been feeling a bit better. Less short of breath. The patient states that she is typically sees Dr. Li and also my partner, Dr. Coles. When measured in our office, she has stage II disease with an FEV1 at 61% of predicted. In addition, she has a history of dysphagia, chronic nicotine dependence, obesity, anxiety/depression, CVA, hypertension, and previous episode of pneumonia involving the left lower lobe. She tells me that she was on the Symbicort, but her insurance is not currently covered. Hence, more recently, she was just on rescue medication including albuterol inhaler and albuterol updrafts. Objective - Vital Signs Vital signs: Vital Signs Temp 97.3 F L 09/06/18 04:00 Pulse 72 09/06/18 04:00 Resp 18 09/06/18 04:00 BP 108/57 09/06/18 04:00 Pulse Ox 96 09/06/18 04:00 Intake & Output 09/05/18 09/05/18 09/06/18 06:59 18:59 06:59 Intake Total 300 1500 Balance 300 1500 Weight 136.078 kg Intake: Oral 300 1500 Other: Voiding Method Toilet # Voids 2 2 1 - Exam No acute distress, oriented 3. HEENT examination is grossly unremarkable. Mucous membranes are moist. No oral lesions. Neck supple. Full range of motion. No adenopathy thyromegaly or neck vein distention. Cardiovascular examination reveals regular rhythm rate. S1-S2 normal. No S3 or S4. No discernible murmur noted. Lungs reveal mostly clear breath sounds. A few scattered rhonchi and expiratory wheezes. Breath sounds equal bilaterally. No crackles. Breath sounds are diminished throughout. Abdomen soft bowel sounds are heard. No masses or tenderness. Abdomen is obese. Extremities are intact. No cyanosis clubbing or edema. Skin is without rash or lesion. Neurologic examination is brief but nonfocal. - Labs CBC & Chem 7: 09/05/18 07:32 09/05/18 07:32 Labs: Abnormal Lab Results - Last 24 Hours (Table) 09/05/18 09/05/1809/05/18 Range/Units 07:29 07:32 07:32 WBC 14.4 H (3.8-10.6) k/uL Hct 46.9 H (34.0-46.0) % MCHC 30.9 L (31.0-37.0) g/dL Neutrophils # 11.9 H (1.3-7.7) k/uL BUN 28 H (7-17) mg/dL Glucose 123 H (74-99) mg/dL POC Glucose (mg/dL) 121 H (75-99) mg/dL Calcium 10.4 H (8.4-10.2) mg/dL 09/05/18 09/05/18 09/05/18 Range/Units 12:12 17:41 20:53 WBC (3.8-10.6) k/uL Hct (34.0-46.0) % MCHC (31.0-37.0) g/dL Neutrophils # (1.3-7.7) k/uL BUN (7-17) mg/dL Glucose (74-99) mg/dL POC Glucose (mg/dL) 133 H 141 H 158 H (75-99) mg/dL Calcium (8.4-10.2) mg/dL Microbiology - Last 24 Hours (Table) 09/02/18 14:04 Blood Culture - Preliminary Blood No Growth after 72 hours Assessment and Plan Assessment: Assessment Acute hypoxemic respiratory failure secondary to COPD exacerbation, possibly triggered by an aspiration event Moderate COPD/stage II, with an FEV1 at 61% of predicted. History of dysphagia Chronic nicotine dependence Morbid obesity Anxiety/depression History of CVA History of hypertension Recent episode of left lower lobe pneumonia Plan: Plan dated 09/06/2018 Chest x-ray was negative for an acute infiltrate. Lab data from September 05 shows a white count of 14.4 hemoglobin and hematocrit which were stable and normal platelet count. Likewise, likewise were normal. BUN and creatinine 28 and 0.79, respectively. Culture data was negative. Medications are reviewed and adjusted accordingly. No additional conditions are made. Possible discharge within the next 24-48 hours. From the pulmonary standpoint, the patient is stable. She should follow with my partner post discharge. Smoking cessation is counseled. Time with Patient: Less than 30
[2018-09-06] MEDS: PANTOPRAZOLE 40 MG TABLET PO SCH (07:15)
[2018-09-06] MEDS: INSULIN ASPART 100 UNIT/ML 1 ML 10 ML VIAL SQ SCH ×4 (07:18→21:44)
[2018-09-06 07:19] LABS: Glucose,Whole Blood 116 mg/dL (75-99)
[2018-09-06] MEDS: IPRATROPIUM-ALBUTEROL 3 ML NEB INHALATION SCH ×4 (07:42→20:16)
[2018-09-06] MEDS: SYMBICORT 160-4.5 MCG INHALER INHALATION SCH ×2 (07:42→20:16)
[2018-09-06 07:46] LABS: Basophils % (A) 0 %; Eosinophils % (A) 0 %; HCT 46.9 % (34.0-46.0); HGB 14.5 gm/dL (11.4-16.0); Hypochromasia Slight; Lymphocytes # (A) 1.7 k/uL (1.0-4.8); Lymphocytes % (A) 11 %; MCH 27.7 pg (25.0-35.0); MCHC 30.9 g/dL (31.0-37.0); MCV 89.7 fL (80.0-100.0); Mean Platelet Volume 8.3; Monocytes # (A) 0.8 k/uL (0-1.0); Monocytes % (A) 5 %; Neutrophils # (A) 12.6 k/uL (1.3-7.7); Neutrophils % (A) 83 %; Platelet Count 361 k/uL (150-450); RBC 5.22 m/uL (3.80-5.40); RDW 14.6 % (11.5-15.5); WBC 15.2 k/uL (3.8-10.6)
[2018-09-06 08:08] LABS: Anion Gap 8 mmol/L; Blood Urea Nitrogen 24 mg/dL (7-17); Calcium 9.8 mg/dL (8.4-10.2); Carbon Dioxide 26 mmol/L (22-30); Chloride 105 mmol/L (98-107); Glucose 123 mg/dL (74-99); Potassium 4.9 mmol/L (3.5-5.1); Sodium 139 mmol/L (137-145)
[2018-09-06] MEDS: NICOTINE 21MG/24HR PATCH TRANSDERM SCH (08:52)
[2018-09-06] MEDS: FUROSEMIDE 20 MG TAB PO SCH ×2 (08:52→16:29)
[2018-09-06] MEDS: CEFDINIR 300 MG CAP PO SCH ×2 (08:52→21:36)
[2018-09-06] MEDS: HEPARIN SODIUM,PORCINE 5,000 UNIT/ML 1 ML VIAL SQ SCH ×2 (08:52→21:36)
[2018-09-06] MEDS: ASPIRIN 81 MG PO SCH (08:52)
[2018-09-06] MEDS: HYDROcodone/APAP 7.5-325MG 1 EACH TAB PO SCH ×3 (08:53→21:37)
[2018-09-06] MEDS: TOPIRAMATE 100 MG TAB PO SCH ×2 (08:55→21:36)
[2018-09-06] MEDS: LORATADINE 10 MG TAB PO SCH (08:55)
[2018-09-06] MEDS: PREGABALIN 75 MG CAP PO SCH ×3 (08:55→21:38)
[2018-09-06] MEDS: predniSONE 20 MG TAB PO SCH (08:55)
[2018-09-06] MEDS: TRIAMTERENE-HCTZ 37.5-25MG 1 EACH CAP PO SCH (08:56)
[2018-09-06] MEDS: VERAPAMIL SR 180 MG TABLET.ER PO SCH (08:56)
[2018-09-06 12:17] LABS: Glucose,Whole Blood 147 mg/dL (75-99)
[2018-09-06] MEDS: FERROUS SULFATE 325 MG TAB PO SCH (12:36)
[2018-09-06] MEDS: BUTALB/APAP/CAFF 50-325-40MG TAB PO PRN (15:07)
[2018-09-06 17:10] LABS: Glucose,Whole Blood 120 mg/dL (75-99)
[2018-09-06] MEDS: amLODIPine 5 MG TAB PO SCH (21:36)
[2018-09-06] MEDS: DULoxetine HCL 60 MG CAPSULE.DR PO SCH (21:36)
[2018-09-06] MEDS: LISINOPRIL 10 MG TAB PO SCH (21:36)
[2018-09-06 21:44] LABS: Glucose,Whole Blood 119 mg/dL (75-99)
[2018-09-07] MEDS: NICOTINE 21MG/24HR PATCH TRANSDERM SCH (00:23)
[2018-09-07] MEDS: ZOLPIDEM 10 MG TAB PO SCH (00:44)
[2018-09-07] MEDS: guaiFENesin 600 MG TABLET.ER PO PRN ×2 (00:44→13:16)
[2018-09-07] MEDS: IBUPROFEN 800 MG TAB PO PRN ×2 (00:44→13:16)
[2018-09-07 06:20] LABS: Basophils # (A) 0.1 k/uL (0-0.2); Basophils % (A) 0 %; Eosinophils # (A) 0.2 k/uL (0-0.7); Eosinophils % (A) 1 %; HCT 47.7 % (34.0-46.0); HGB 14.6 gm/dL (11.4-16.0); Lymphocytes # (A) 2.7 k/uL (1.0-4.8); Lymphocytes % (A) 20 %; MCHC 30.7 g/dL (31.0-37.0); MCV 88.2 fL (80.0-100.0); Mean Platelet Volume 7.4; Monocytes # (A) 0.8 k/uL (0-1.0); Monocytes % (A) 6 %; Neutrophils # (A) 9.9 k/uL (1.3-7.7); Neutrophils % (A) 71 %; Platelet Count 341 k/uL (150-450); RBC 5.41 m/uL (3.80-5.40); RDW 14.6 % (11.5-15.5); WBC 13.8 k/uL (3.8-10.6)
[2018-09-07 06:35] LABS: Calcium 9.8 mg/dL (8.4-10.2); Potassium 3.9 mmol/L (3.5-5.1)
[2018-09-07 07:08] LABS: Glucose,Whole Blood 99 mg/dL (75-99)
[2018-09-07] MEDS: INSULIN ASPART 100 UNIT/ML 1 ML 10 ML VIAL SQ SCH ×2 (07:10→16:03)
[2018-09-07] MEDS: PANTOPRAZOLE 40 MG TABLET PO SCH (07:11)
[2018-09-07] MEDS: IPRATROPIUM-ALBUTEROL 3 ML NEB INHALATION SCH ×4 (07:47→21:43)
[2018-09-07] MEDS: SYMBICORT 160-4.5 MCG INHALER INHALATION SCH ×2 (07:47→21:43)
[2018-09-07] MEDS: predniSONE 20 MG TAB PO SCH (08:49)
[2018-09-07] MEDS: PREGABALIN 75 MG CAP PO SCH ×3 (08:49→21:35)
[2018-09-07] MEDS: HEPARIN SODIUM,PORCINE 5,000 UNIT/ML 1 ML VIAL SQ SCH ×2 (08:49→21:34)
[2018-09-07] MEDS: HYDROcodone/APAP 7.5-325MG 1 EACH TAB PO SCH ×3 (08:49→21:36)
[2018-09-07] MEDS: FUROSEMIDE 20 MG TAB PO SCH ×2 (08:49→16:14)
[2018-09-07] MEDS: CEFDINIR 300 MG CAP PO SCH ×2 (08:49→21:38)
[2018-09-07] MEDS: LORATADINE 10 MG TAB PO SCH (08:49)
[2018-09-07] MEDS: ASPIRIN 81 MG PO SCH (08:49)
[2018-09-07] MEDS: VERAPAMIL SR 180 MG TABLET.ER PO SCH (08:51)
[2018-09-07] MEDS: TOPIRAMATE 100 MG TAB PO SCH ×2 (08:51→21:37)
[2018-09-07] MEDS: TRIAMTERENE-HCTZ 37.5-25MG 1 EACH CAP PO SCH (08:51)
[2018-09-07] MEDS: BUTALB/APAP/CAFF 50-325-40MG TAB PO PRN (09:09)
--- NOTE | 2018-09-07 11:09 | P.PN ---
Subjective Progress Note Date: 09/07/18 Principal diagnosis: Acute hypoxic respiratory failure secondary to COPD exacerbation This is a 48-year-old white female patient of Dr. Li, who also sees Dr. Coles in the pulmonary office for her history of moderately severe COPD, with an underlying FEV1 1.78 liters or 61% of predicted, with FVC of 2.18 L or 60%, presented to the emergency department on 09/02/2018 for evaluation of worsening shortness of breath, chest congestion, chest tightness, wheezing. Patient states that she had episode of choking on Saturday, when she was eating a piece of candy, and reportedly choked on her oral saliva. She was coughing quite extensively, and the next morning her breathing started to get worse. On Saturday she called Dr. Li because of sinus pressure, sinus drainage, and cough. Patient reports production of thick green sputum. She was started on Z- Ashu, and she took 2 doses, with no significant improvement. She did have fevers at home, of 100.3F. No hemoptysis, no chest wall tenderness. Patient presented to the emergency department yesterday for further evaluation and treatment. She is a current smoker, down to half a pack a day. Not on any oxygen, maintenance inhalers include Symbicort and Ventolin. She does have a nebulizer machine at home with nebulized treatments. Patient states recently she found that the insurance company stopped covering Symbicort, but has not called the insurance company to find out if there is an alternative LABA/ICS inhaler that they will cover. Patient states that she has been having swallowing issues, she frequently coughs on thin liquids. She is having bilateral lower extremity weakness, bladder incontinence, blurred vision, and she is currently undergoing workup for MS with Dr. Borrero. She states she had a recent lumbar puncture, and the results were inconclusive reportedly. Chest x -ray was completed and showed no suspicious pulmonary infiltrate. EKG was taking, showed normal sinus rhythm with nonspecific T-wave abnormality, namely T -wave inversion in leads II, III, aVF. Cardiology has been consulted, 3 sets of cardiac enzymes and troponins were negative, proBNP is within normal limits at 289. The rest of the patient's blood work is essentially unremarkable. No leukocytosis, no renal function or electrolyte abnormality. LFTs were within normal limits. Urinalysis is negative. Drug screen was positive for opiates and barbiturates. Patient was started on Rocephin, nebulized bronchodilators, Pulmicort, Perforomist, IV steroids. The patient is seen again today 09/04/2018 in follow-up on the pediatric unit. She is sitting up at the bedside. She is awake and alert in no acute distress. She states her breathing is slightly improved today as compared to yesterday but not quite back to her baseline. She is maintaining good O2 saturations in the 90s on room air. She's been afebrile. Hemodynamically stable. White count 11.6. Hemoglobin 13.9. Creatinine 0.72. She remains on DuoNeb inhalations, Pulmicort and Perforomist inhalations, IV Solu-Medrol. She remains on empiric antibiotics in the form of ceftriaxone. Blood culture reveals no growth. The patient is seen again today 09/05/2018 in follow-up on the pediatric unit. She remains awake and alert in no acute distress. She is currently maintaining good O2 saturations in the 90s on room air now. White count 14.4. Hemoglobin 14.5. Creatinine 0.79. Blood culture reveals no growth. She is continued on IV Solu-Medrol, DuoNeb inhalations, Perforomist and Pulmicort inhalations, ceftriaxone. Reevaluated today on 09/07/2018, patient continues to cough and wheeze, does not feel a significant improvement noted over the last 48 hours. Patient was seen by Dr. Gonzalez yesterday on follow-up, he recommended that she stays on the same medications, and he counseled the patient regarding smoking cessation. Today after evaluating the patient, I felt that the patient may have to be bronchoscoped if she doesn't show much improvement in the next 24 hours. And she was made aware of this. Objective - Vital Signs Vital signs: Vital Signs Temp 97.2 F L 09/07/18 08:10 Pulse 80 09/07/18 08:10 Resp 18 09/07/18 08:10 BP 111/58 09/07/18 08:10 Pulse Ox 96 09/07/18 08:10 Intake & Output 09/06/18 09/07/18 09/07/18 18:59 06:59 18:59 Intake Total 1200 1000 Balance 1200 1000 Intake: Oral 1200 1000 Other: Voiding Method Toilet Toilet # Voids 1 1 - Exam GENERAL EXAM: Revealed a 48-year-old female in no distress. HEAD: Normocephalic. Atraumatic EYES: Normal reaction of pupils, equal size. No icterus. THROAT: No erythema or exudates. Mallampati class III NECK: Short obese neck, no neck masses, no JVD, no stridor. CHEST: Symmetrical chest expansion. LUNGS: Equal air entry with bilateral expiratory wheezes noted. More so on forced expiratory maneuver. CVS: S1 and S2 normal with no audible murmur, regular rhythm. ABDOMEN: Obese, soft, No hepatosplenomegaly, normal bowel sounds, no guarding or rigidity. SPINE: No scoliosis or deformity SKIN: No rashes and no erythema, no ulcers. CENTRAL NERVOUS SYSTEM: Alert oriented 3, no gross focal neurologic deficit EXTREMITIES: There is no peripheral edema. No clubbing, no cyanosis. Peripheral pulses are intact. - Labs CBC & Chem 7: 09/07/18 06:04 09/07/18 06:04 Labs: Abnormal Lab Results - Last 24 Hours (Table) 09/06/18 09/06/18 09/06/18 Range/Units 12:14 17:07 21:43 WBC (3.8-10.6) k/uL RBC (3.80-5.40) m/uL Hct (34.0-46.0) % MCHC (31.0-37.0) g/dL Neutrophils # (1.3-7.7) k/uL BUN (7-17) mg/dL Glucose (74-99) mg/dL POC Glucose (mg/dL) 147 H 120 H 119 H (75-99) mg/dL 09/07/18 09/07/18 Range/Units 06:04 06:04 WBC 13.8 H (3.8-10.6) k/uL RBC 5.41 H (3.80-5.40) m/uL Hct 47.7 H (34.0-46.0) % MCHC 30.7 L (31.0-37.0) g/dL Neutrophils # 9.9 H (1.3-7.7) k/uL BUN 33 H (7-17) mg/dL Glucose 114 H (74-99) mg/dL POC Glucose (mg/dL) (75-99) mg/dL Microbiology - Last 24 Hours (Table) 09/02/18 14:04 Blood Culture - Preliminary Blood No Growth after 96 hours Assessment and Plan Assessment: #1. Acute hypoxic respiratory failure secondary to acute exacerbation of COPD, may have been triggered by an aspiration event. #2. Moderately severe COPD, with FEV1 of 61% of predicted, FVC of 60%, GOLD stage II, not oxygen dependent on a regular basis #3. Dysphagia with thin liquids. Patient is currently being worked up for multiple sclerosis #4. Nicotine dependence, chronic and ongoing, currently down to half a pack a day, counseled regarding smoking cessation. #5. Morbid obesity #6. He was anxiety disorder #7. Past medical history of CVA/TIA #8. Benign essential hypertension Recommendation: Continue present course of treatment, patient is basically maximized on bronchodilators and steroids, if not improved in the next 24-48 hours, bronchoscopy may have to be considered. We'll continue to follow. Time with Patient: Less than 30
[2018-09-07] MEDS: FERROUS SULFATE 325 MG TAB PO SCH (18:37)
[2018-09-07] MEDS: LISINOPRIL 10 MG TAB PO SCH (21:36)
[2018-09-07] MEDS: amLODIPine 5 MG TAB PO SCH (21:37)
[2018-09-07] MEDS: DULoxetine HCL 60 MG CAPSULE.DR PO SCH (21:37)
--- NOTE | 2018-09-07 23:12 | P.PN ---
Subjective Progress Note Date: 09/06/18 Principal diagnosis: Acute COPD exacerbation Ms. So is a 48-year-old female with a history of a acute hypoxemic respiratory failure secondary to COPD, history of dysphagia, chronic nicotine dependence, obesity, anxiety/depression, CVA, hypertension, and previous episode of pneumonia involving the left lower lobe admitted for SOB. She tells me that she was on the Symbicort, but her insurance is not covered by her insurance , so she was just on rescue medication including albuterol inhaler and albuterol updrafts. Pt is lying in bed comfortably, no acute distress. She c/o wheezing and that her SOB s stillthe same. SHe denies any chest pain, palpitaions. No c/o nausea, vomiting or diarrhea. No dysuria or hematuria. Objective - Vital Signs Vital signs: Vital Signs Temp 98.1 F 09/06/18 17:00 Pulse 81 09/06/18 17:00 Resp 18 09/06/18 17:00 BP 118/61 09/06/18 17:00 Pulse Ox 96 09/06/18 17:00 Intake & Output 09/05/18 09/06/18 09/06/18 18:59 06:59 18:59 Intake Total 1500 1200 Balance 1500 1200 Intake: Oral 1500 1200 Other: Voiding Method Toilet Toilet # Voids 2 1 1 - Exam General appearance: alert, in no apparent distress Head exam: atraumatic, normocephalic, normal inspection Eye exam: normal appearance, PERRL, EOMI. Absent: scleral icterus, conjunctival injection, periorbital swelling Neck exam: Present: normal inspection, full ROM. Absent: tenderness, meningismus, lymphadenopathy Respiratory exam: wheezes in Bilateral lungs in all lobes. Cardiovascular Exam: Present: regular rate, normal rhythm, normal heart sounds. Absent: systolic murmur, diastolic murmur, rubs, gallop, clicks Skin exam: Present: warm, dry, intact, normal color. Absent: rash - Labs CBC & Chem 7: 09/07/18 06:04 09/07/18 06:04 Labs: Abnormal Lab Results - Last 24 Hours (Table) 09/05/18 09/06/18 09/06/18 Range/Units 20:53 06:54 06:54 WBC 15.2 H (3.8-10.6) k/uL Hct 46.9 H (34.0-46.0) % MCHC 30.9 L (31.0-37.0) g/dL Neutrophils # 12.6 H (1.3-7.7) k/uL BUN 24 H (7-17) mg/dL Glucose 123 H (74-99) mg/dL POC Glucose (mg/dL) 158 H (75-99) mg/dL 09/06/18 09/06/18 09/06/18 Range/Units 07:17 12:14 17:07 WBC (3.8-10.6) k/uL Hct (34.0-46.0) % MCHC (31.0-37.0) g/dL Neutrophils # (1.3-7.7) k/uL BUN (7-17) mg/dL Glucose (74-99) mg/dL POC Glucose (mg/dL) 116 H 147 H 120 H (75-99) mg/dL Microbiology - Last 24 Hours (Table) 09/02/18 14:04 Blood Culture - Preliminary Blood No Growth after 96 hours Assessment and Plan Assessment: Assessment: Acute hypoxic respiratory failure secondary to acute exacerbation of COPD Moderately severe COPD Dysphagia with thin liquids - unclear etilogy - work up in progress Nicotine dependence, chronic - currently half a pack a day Morbid obesity Anxiety/depression Past medical history of CVA/TIA Hypertension Previous episode of pneumonia in December in the left lower lobe PLAN - C/w Antibiotics, breathing treatments and steroids. C/w the rest of her medications. Further recs to follow depending on the progress of the patient.
--- NOTE | 2018-09-07 23:14 | P.PN ---
Subjective Progress Note Date: 09/07/18 Principal diagnosis: Acute COPD exacerbation Ms. So is a 48-year-old female with a history of a acute hypoxemic respiratory failure secondary to COPD, history of dysphagia, chronic nicotine dependence, obesity, anxiety/depression, CVA, hypertension, and previous episode of pneumonia involving the left lower lobe admitted for SOB. She tells me that she was on the Symbicort, but her insurance is not covered by her insurance , so she was just on rescue medication including albuterol inhaler and albuterol updrafts. Today pt is lying in bed comfortably, no acute distress. She c/o wheezing and that her SOB s stillthe same. SHe denies any chest pain, palpitaions. No c/o nausea, vomiting or diarrhea. No dysuria or hematuria. Objective - Vital Signs Vital signs: Vital Signs Temp 97.2 F L 09/07/18 08:10 Pulse 80 09/07/18 08:10 Resp 18 09/07/18 08:10 BP 111/58 09/07/18 08:10 Pulse Ox 96 09/07/18 08:10 Intake & Output 09/06/18 09/07/18 09/07/18 18:59 06:59 18:59 Intake Total 1200 1000 Balance 1200 1000 Intake: Oral 1200 1000 Other: Voiding Method Toilet Toilet # Voids 1 1 - Exam General appearance: alert, in no apparent distress Head exam: atraumatic, normocephalic, normal inspection Eye exam: normal appearance, PERRL, EOMI. Absent: scleral icterus, conjunctival injection, periorbital swelling Neck exam: Present: normal inspection, full ROM. Absent: tenderness, meningismus, lymphadenopathy Respiratory exam: wheezes in Bilateral lungs in all lobes less than compared to yesterday. Cardiovascular Exam: Present: regular rate, normal rhythm, normal heart sounds. Absent: systolic murmur, diastolic murmur, rubs, gallop, clicks Skin exam: Present: warm, dry, intact, normal color. Absent: rash - Labs CBC & Chem 7: 09/07/18 06:04 09/07/18 06:04 Labs: Abnormal Lab Results - Last 24 Hours (Table) 09/06/18 09/06/18 09/06/18 Range/Units 12:14 17:07 21:43 WBC (3.8-10.6) k/uL RBC (3.80-5.40) m/uL Hct (34.0-46.0) % MCHC (31.0-37.0) g/dL Neutrophils # (1.3-7.7) k/uL BUN (7-17) mg/dL Glucose (74-99) mg/dL POC Glucose (mg/dL) 147 H 120 H 119 H (75-99) mg/dL 09/07/18 09/07/18 Range/Units 06:04 06:04 WBC 13.8 H (3.8-10.6) k/uL RBC 5.41 H (3.80-5.40) m/uL Hct 47.7 H (34.0-46.0) % MCHC 30.7 L (31.0-37.0) g/dL Neutrophils # 9.9 H (1.3-7.7) k/uL BUN 33 H (7-17) mg/dL Glucose 114 H (74-99) mg/dL POC Glucose (mg/dL) (75-99) mg/dL Microbiology - Last 24 Hours (Table) 09/02/18 14:04 Blood Culture - Preliminary Blood No Growth after 96 hours Assessment and Plan Assessment: Assessment: Acute hypoxic respiratory failure secondary to acute exacerbation of COPD Moderately severe COPD Dysphagia with thin liquids - unclear etilogy - work up in progress Nicotine dependence, chronic - currently half a pack a day Morbid obesity Anxiety/depression Past medical history of CVA/TIA Hypertension Previous episode of pneumonia in December in the left lower lobe PLAN - C/w Antibiotics, breathing treatments and steroids. C/w the rest of her medications. Further recs to follow depending on the progress of the patient.
[2018-09-08] MEDS: ZOLPIDEM 10 MG TAB PO SCH (01:33)
[2018-09-08] MEDS: IBUPROFEN 800 MG TAB PO PRN (01:47)
[2018-09-08] MEDS: PANTOPRAZOLE 40 MG TABLET PO SCH (08:00)
[2018-09-08] MEDS: IPRATROPIUM-ALBUTEROL 3 ML NEB INHALATION SCH ×2 (08:28→12:45)
[2018-09-08] MEDS: SYMBICORT 160-4.5 MCG INHALER INHALATION SCH (08:28)
[2018-09-08] MEDS: ASPIRIN 81 MG PO SCH (08:44)
[2018-09-08] MEDS: FUROSEMIDE 20 MG TAB PO SCH (08:45)
[2018-09-08] MEDS: CEFDINIR 300 MG CAP PO SCH (08:45)
[2018-09-08] MEDS: HEPARIN SODIUM,PORCINE 5,000 UNIT/ML 1 ML VIAL SQ SCH (08:45)
[2018-09-08] MEDS: HYDROcodone/APAP 7.5-325MG 1 EACH TAB PO SCH (08:45)
[2018-09-08] MEDS: LORATADINE 10 MG TAB PO SCH (08:46)
[2018-09-08] MEDS: NICOTINE 21MG/24HR PATCH TRANSDERM SCH (08:47)
[2018-09-08] MEDS: predniSONE 20 MG TAB PO SCH (08:47)
[2018-09-08] MEDS: PREGABALIN 75 MG CAP PO SCH (08:48)
[2018-09-08] MEDS: TOPIRAMATE 100 MG TAB PO SCH (08:48)
[2018-09-08] MEDS: VERAPAMIL SR 180 MG TABLET.ER PO SCH (08:48)
[2018-09-08] MEDS: TRIAMTERENE-HCTZ 37.5-25MG 1 EACH CAP PO SCH (08:49)
[2018-09-08] MEDS: BUTALB/APAP/CAFF 50-325-40MG TAB PO PRN (09:57)
[2018-09-08] MEDS: FERROUS SULFATE 325 MG TAB PO SCH (12:14)
[2018-09-08 12:47] VITALS: BP 112/71; RESP 16; TEMP 98.1
[2018-09-08 13:00] VITALS: PULSE 80
--- NOTE | 2018-09-08 13:00 | P.PN ---
Subjective Progress Note Date: 09/08/18 Principal diagnosis: Asthma exacerbation Progress note dated 09/06/2018 This is a 48-year-old female with a history of a acute hypoxemic respiratory failure secondary to COPD. The patient states that she's been feeling a bit better. Less short of breath. The patient states that she is typically sees Dr. Li and also my partner, Dr. Coles. When measured in our office, she has stage II disease with an FEV1 at 61% of predicted. In addition, she has a history of dysphagia, chronic nicotine dependence, obesity, anxiety/depression, CVA, hypertension, and previous episode of pneumonia involving the left lower lobe. She tells me that she was on the Symbicort, but her insurance is not currently covered. Hence, more recently, she was just on rescue medication including albuterol inhaler and albuterol updrafts. Progress note dated 09/08/2018 48-year-old female with a history of acute hypoxemic respiratory failure secondary to COPD exacerbation. Her primary care physician is Dr. Li. She saw me on Saturday my partner on Saturday. From my perspective, she is doing much better. Her saturations are excellent. She is on room air. Her breath sounds are much improved. The nurses walked up and down the hallway today [id number] did not desaturate. She will not need be discharged home in any oxygen therapy. My partner thought that she might need bronchoscopy. She's doing much better today. There are no labs from September 08. Microbiologic studies have been negative. No recent chest x-ray. She does have a history of dysphagia, chronic nicotine dependence, obesity, anxiety/depression, CVA, hypertension, and previous pneumonia involving the left lower lobe. Objective - Vital Signs Vital signs: Vital Signs Temp 98.1 F 09/08/18 11:55 Pulse 76 09/08/18 11:55 Resp 16 09/08/18 11:55 BP 112/71 09/08/18 11:55 Pulse Ox 94 L 09/08/18 11:55 Intake & Output 09/07/18 09/08/18 09/08/18 18:59 06:59 18:59 Intake Total 360 1560 475 Balance 360 1560 475 Weight 136.078 kg Intake: Oral 360 1560 475 Other: Voiding Method Toilet Toilet # Voids 2 2 2 - Exam No acute distress, oriented 3. HEENT examination is grossly unremarkable. Mucous membranes are moist. No oral lesions. Neck supple. Full range of motion. No adenopathy thyromegaly or neck vein distention. Cardiovascular examination reveals regular rhythm rate. S1-S2 normal. No S3 or S4. No discernible murmur noted. Lungs reveal mostly clear breath sounds. Minimal bilateral expiratory rhonchi. No wheezes or crackles. Breath sounds are equal. Breath sounds are much, improved compared to Saturdays exam. Abdomen soft bowel sounds are heard. No masses or tenderness. Abdomen is obese. Extremities are intact. No cyanosis clubbing or edema. Skin is without rash or lesion. Neurologic examination is brief but nonfocal. - Labs CBC & Chem 7: 09/07/18 06:04 09/07/18 06:04 Labs: Microbiology - Last 24 Hours (Table) 09/02/18 14:04 Blood Culture - Preliminary Blood No Growth after 120 hours Assessment and Plan Assessment: Assessment Acute hypoxemic respiratory failure secondary to COPD exacerbation, possibly triggered by an aspiration event Moderate COPD/stage II, with an FEV1 at 61% of predicted. History of dysphagia Chronic nicotine dependence Morbid obesity Anxiety/depression History of CVA History of hypertension Recent episode of left lower lobe pneumonia Plan: Plan dated 09/06/2018 Chest x-ray was negative for an acute infiltrate. Lab data from September 05 shows a white count of 14.4 hemoglobin and hematocrit which were stable and normal platelet count. Likewise, likewise were normal. BUN and creatinine 28 and 0.79, respectively. Culture data was negative. Medications are reviewed and adjusted accordingly. No additional conditions are made. Possible discharge within the next 24-48 hours. From the pulmonary standpoint, the patient is stable. She should follow with my partner post discharge. Smoking cessation is counseled. Plan dated 09/08/2018 From my perspective, the patient could be discharged home. The patient should go home on prednisone with a burst and taper and an oral antibiotic. She should follow-up with her primary pulmonary doctor who I believe is my partner, Dr. oCles. No additional recommendations are made. She appears to be stable. She does not need any oxygen therapy. Prognosis is guarded if she continues to smoke. Time with Patient: Less than 30
--- NOTE | 2018-09-08 13:21 | P.DS ---
Providers Date of admission: 09/03/18 13:26 Expected date of discharge: 09/08/18 Attending physician: Erickson Li Consults: 09/02/18 15:43 Consult Physician Stat Consulting Provider: Valentin Coles Consult Reason/Comments: Asthma exacerbation Do you want consulting provider notified?: Yes 09/02/18 17:40 Consult Physician Routine Consulting Provider: Keesha Rosa Consult Reason/Comments: ekg changes Do you want consulting provider notified?: Yes Primary care physician: Erickson Li Hospital Course: 48-year-old female who presented to the emergency room with a chief complaint of shortness of breath. The patient was admitted and treated for a COPD exacerbation. The patient continues to smoke. The patient denied any chest pain, nausea, vomiting, diarrhea, or fever. She was seen by pulmonary during her hospital stay. She was treated with supplemental oxygen, IV steroids , and antibiotics. Her oxygen has since been weaned off. She's maintaining oxygen saturations greater than 92% on room air. Blood cultures have been negative. She was cleared for discharge from a pulmonary standpoint. She was also cleared for discharge per Dr. Li. She is to follow up on an outpatient basis. She was encouraged to quit smoking. Prescriptions were sent patient's preferred pharmacy for nicotine patches, a prednisone taper, and an antibiotic. DISCHARGE DIAGNOSIS: Acute hypoxemic respiratory failure secondary to COPD exacerbation, possibly triggered by an aspiration event Moderate COPD/stage II, with an FEV1 at 61% of predicted. History of dysphagia Chronic nicotine dependence Morbid obesity Anxiety/depression History of CVA History of hypertension Recent episode of left lower lobe pneumonia Nurse practitioner note has been reviewed by physician. Signing provider agrees with the documented findings, assessment, and plan of care. Patient Condition at Discharge: Stable Plan - Discharge Summary Discharge Rx Participant: Yes New Discharge Prescriptions: New Cefdinir [Omnicef] 300 mg PO BID #14 cap Nicotine 21Mg/24Hr Patch [Habitrol] 1 patch TRANSDERM DAILY #14 patch predniSONE See Taper PO DIRECTED #30 tab Continue Topiramate [Topamax] 100 mg PO BID Zolpidem Tartrate 10 mg PO HS Triamterene-Hctz 37.5-25Mg [Dyazide 37.5-25 Capsule] 1 cap PO DAILY Ferrous Sulfate [Iron (65 MG Elemental)] 325 mg PO DAILY Ibuprofen 800 mg PO BID PRN PRN Reason: Pain DULoxetine HCL [Cymbalta] 60 mg PO HS Butalb/APAP/Caff 50-325-40Mg [Fioricet 50-325-40] 1 tab PO Q8HR PRN PRN Reason: Migraine Headache amLODIPine BESYLATE/BENAZEPRIL [amLODIPine BESYLATE/BENAZEPRIL 5-10 mg] 1 tab PO HS Pregabalin [Lyrica] 150 mg PO TID HYDROcodone/APAP 7.5-325MG [[place] 7.5-325] 1 tab PO TID Verapamil Sr [Isoptin Sr] 180 mg PO DAILY Loratadine [Claritin] 10 mg PO DAILY Aspirin EC [Ecotrin Low Dose] 81 mg PO DAILY Furosemide [Lasix] 20 mg PO BID #6 tab Rizatriptan Odt [Maxalt MEDICAID BILLER] 5 mg PO BID PRN PRN Reason: Migraine Headache Budesonide/Formoterol Fumarate [Symbicort 160-4.5 Mcg Inhaler] 2 puff INHALATION RT-BID Discontinued Azithromycin [Zithromax Z-pack] See Taper PO DAILY Discharge Medication List Butalb/APAP/Caff 50-325-40Mg [Fioricet 50-325-40] 1 tab PO Q8HR PRN 05/22/17 [ History] DULoxetine HCL [Cymbalta] 60 mg PO HS 05/22/17 [History] Ferrous Sulfate [Iron (65 MG Elemental)] 325 mg PO DAILY 05/22/17 [History] Ibuprofen 800 mg PO BID PRN 05/22/17 [History] Topiramate [Topamax] 100 mg PO BID 05/22/17 [History] Triamterene-Hctz 37.5-25Mg [Dyazide 37.5-25 Capsule] 1 cap PO DAILY 05/22/17 [ History] Zolpidem Tartrate 10 mg PO HS 05/22/17 [History] HYDROcodone/APAP 7.5-325MG [[place] 7.5-325] 1 tab PO TID 01/12/18 [History] Pregabalin [Lyrica] 150 mg PO TID 01/12/18 [History] amLODIPine BESYLATE/BENAZEPRIL [amLODIPine BESYLATE/BENAZEPRIL 5-10 mg] 1 tab PO HS 01/12/18 [History] Aspirin EC [Ecotrin Low Dose] 81 mg PO DAILY 06/06/18 [History] Furosemide [Lasix] 20 mg PO BID #6 tab 06/06/18 [Rx] Loratadine [Claritin] 10 mg PO DAILY 06/06/18 [History] Verapamil Sr [Isoptin Sr] 180 mg PO DAILY 06/06/18 [History] Budesonide/Formoterol Fumarate [Symbicort 160-4.5 Mcg Inhaler] 2 puff INHALATION RT-BID 09/02/18 [History] Rizatriptan Odt [Maxalt MEDICAID BILLER] 5 mg PO BID PRN 09/02/18 [History] Cefdinir [Omnicef] 300 mg PO BID #14 cap 09/08/18 [Rx] Nicotine 21Mg/24Hr Patch [Habitrol] 1 patch TRANSDERM DAILY #14 patch 09/08/18 [ Rx] predniSONE See Taper PO DIRECTED #30 tab 09/08/18 [Rx] Follow up Appointment(s)/Referral(s): Mode Bowie MD [STAFF PHYSICIAN] - 10/07/18 2:45 pm Erickson Li DO [Primary Care Provider] - 1 Week Activity/Diet/Wound Care/Special Instructions: Replacement CPAP script faxed to [facility]: #[phone] Discharge Disposition: HOME SELF-CARE
== END 2018-09-08 14:54 | disposition home or self-care (01) | DRG 190 ==
LOC: EC 13:11 → 3OBS 16:28 → OBSVTOIN 09-03 13:26 → 6PED 09-04 09:45
PROVIDERS: ADMIT Family Medicine; ATTEND Family Medicine
DX: J44.0 Chronic obstructive pulmonary disease with (acute) lower respiratory infection (principal); J96.01 Acute respiratory failure with hypoxia; J45.21 Mild intermittent asthma with (acute) exacerbation; Z68.43 Body mass index [BMI] 50.0-59.9, adult; G90.50 Complex regional pain syndrome I, unspecified; J44.1 Chronic obstructive pulmonary disease with (acute) exacerbation; J20.9 Acute bronchitis, unspecified; F17.210 Nicotine dependence, cigarettes, uncomplicated; E66.01 Morbid (severe) obesity due to excess calories; F32.9 Major depressive disorder, single episode, unspecified; F41.9 Anxiety disorder, unspecified; G47.33 Obstructive sleep apnea (adult) (pediatric); I10 Essential (primary) hypertension; I27.20 Pulmonary hypertension, unspecified; R13.10 Dysphagia, unspecified; R32 Unspecified urinary incontinence; Z79.51 Long term (current) use of inhaled steroids; Z82.49 Family history of ischemic heart disease and other diseases of the circulatory system; Z83.3 Family history of diabetes mellitus; Z86.73 Personal history of transient ischemic attack (TIA), and cerebral infarction without residual deficits; Z87.01 Personal history of pneumonia (recurrent); Z79.82 Long term (current) use of aspirin; Z79.899 Other long term (current) drug therapy; G35 Multiple sclerosis; I25.10 Atherosclerotic heart disease of native coronary artery without angina pectoris
CPT/HCPCS: 36415; 71046; 80048; 80053; 80306; 81003; 82550; 82553; 83036; 83735; 83880; 84484; 85025; 85610; 85730; 87040; 93005; 94640; 94760; 96374; 99285

== ENCOUNTER → 2018-11-05 | Outpatient (CLI) | payer OTHER ==
--- NOTE | 2018-11-06 09:23 | MM ---
Reason for exam: screening (asymptomatic). Last mammogram was performed 4 years and 4 months ago. History: Family history of breast cancer in maternal aunt at age 50. Benign US biopsy breast VAD LT of the left breast, August 06, 2014. Physical Findings: A clinical breast exam by your physician is recommended on an annual basis and results should be correlated with mammographic findings. MG 3D Screening Mammo W/Cad Bilateral CC and MLO view(s) were taken. Prior study comparison: July 20, 2014, bilateral MG diagnostic mammo w CAD JULIANA. March 03, 2013, CAD bilateral diagnostic mammogram. The breast tissue is extremely dense which could obscure a lesion on mammography. There are benign appearing round calcifications bilaterally. Previous mammotome biopsy in the left breast. Asymmetric breast tissue in the left axilla. There is no discrete abnormality. ASSESSMENT: Incomplete: need additional imaging evaluation, BI-RAD 0 RECOMMENDATION: Ultrasound of the left breast. (axilla palpable lump per patient) [facility] will attempt to contact patient to return for ultrasound.
== END | disposition home or self-care (01) ==
LOC: RADMAMWWP 16:11
PROVIDERS: ATTEND Family Medicine
DX: Z12.31 Encounter for screening mammogram for malignant neoplasm of breast (principal)
CPT/HCPCS: 77063; 77067

== ENCOUNTER → 2018-11-26 | Outpatient (CLI) | payer OTHER ==
--- NOTE | 2018-11-26 12:18 | USB ---
Reason for exam: clinical finding. History: Family history of breast cancer in maternal aunt at age 50. Benign US biopsy breast VAD LT of the left breast, August 06, 2014. Indicated problem(s): palpable abnormality and large axillary lymph nodes in the left breast. Physical Findings: Nurse Summary: left axilla node with edema (nurse dw). US Breast Workup Limited LT Left limited breast ultrasound including focal area of concern, retroareolar and axilla demonstrates a 0.9 x 1.4 x 0.5cm oval, lobular, mixed, vascular lesion at 12 o'clock, suspicious for which a biopsy is recommended, a 1.9 x 1.4 x 1.3cm oval, lesion at axilla, a 2.3 x 2.4 x 1.4cm oval lesion at axilla, these are enlarged but show no abnormal cortical thickening, likely reactive nodes and a 1.5 x 0.8 x 0.4cm oval lesion at axilla, this shows some cortical thickening and is the inferior most node in the axilla, reassess at time of biopsy to determine if this also appears suspicious for biopsy. These results were verbally communicated with the patient and result sheet given to the patient on 11/26/18. ASSESSMENT: Suspicious, BI-RAD 4 RECOMMENDATION: Ultrasound core biopsy of the left breast. (12 o'clock and possible axilla biopsy) Called Dr. Li with mammographic findings and has scheduled an appointment for the patient for 11/28/18 at 2:[address] Lal. PRELIMINARY REPORT CALLED AND FAXED TO DR. LAL ON 11/26/18. [facility]
== END | disposition home or self-care (01) ==
LOC: RADUSWWP 09:05
PROVIDERS: ATTEND Family Medicine
DX: R92.8 Other abnormal and inconclusive findings on diagnostic imaging of breast (principal)

== ENCOUNTER → 2018-12-03 | Day surgery (SDC) | payer OTHER ==
[2018-12-03 12:00] VITALS: RESP 16; BMI 57.0
[2018-12-03 13:36] VITALS: BP 107/71; PULSE 80; TEMP 98.1
--- NOTE | 2018-12-03 14:05 | USB ---
EXAMINATION TYPE: US biopsy breast VAD LT, MG diagnostic mammo LT wo CAD DATE OF EXAM: 12/03/2018 CLINICAL HISTORY: R92.8 PREV ABN MAMMO.. TECHNIQUE: Ultrasound guided core biopsy of left breast. COMPARISON: 11/26/2018 left breast ultrasound. Mammograms dating back to 03/03/2013. FINDINGS: The procedure of ultrasound guided core biopsy was explained to the patient. Benefits, alt ernatives, and risks were discussed. An informed consent was then obtained. Preprocedural timeout w as performed. The patient was placed in supine positioning for imaging and for the procedure. The overlying skin w as prepped and draped in usual sterile fashion. Lidocaine buffered with bicarbonate was used as anes thetic into the skin and subcutaneous tissue up to the 0.9 x 1.4 x 0.5 cm oval elongated hypoechoic v ascular mass at the 12:00 position within the retroareolar left breast. Under ultrasound guidance, a 12-gauge vacuum assisted biopsy gun device was used to obtain 4 core tata ples. Following this, a ribbon-shaped biopsy marker was left in lesion. Postprocedural mammogram de monstrates appropriate marker placement. The patient tolerated the procedure well without any immediate complication. The patient was kept in the radiology department for short stay after the procedure and then discharged home in stable condi tion. Real-time sonography was performed prior to the examination regarding left axillary adenopathy. Multi ple probable reactive left lymph nodes appear prominent in size but stable in comparison to multiple prior mammograms dating back to 2012. Additionally a smaller lymph node demonstrates very minimal cor tical thickening with low index of suspicion. Recommendation will be made pending radiologic/patholog ic correlation after results of the performed biopsy. IMPRESSION: Successful, uncomplicated ultrasound guided core biopsy of the 1.4 cm left retroareolar m ass at the 12:00 position, possible fibroadenoma, within the left breast, full pathology results to wendy krishna. Recommendation for the left axillary lymph node with a minimally thickened cortex will be made on radiologic/pathologic correlation.
== END ==
LOC: RADUSWWP 11:19
PROVIDERS: ATTEND Surgery
DX: N60.32 Fibrosclerosis of left breast (principal); R92.8 Other abnormal and inconclusive findings on diagnostic imaging of breast; Z88.5 Allergy status to narcotic agent; Z88.2 Allergy status to sulfonamides
CPT/HCPCS: 88305; 77065; 19083; A4648; J2001

== ENCOUNTER 2019-08-18 08:34 | Inpatient (IN) | payer OTHER ==
[2019-08-18] MEDS ORDERED: SODIUM CHLORIDE 0.9% 1,000 ML IV STA (09:27)
[2019-08-18] MEDS ORDERED: IPRATROPIUM-ALBUTEROL 3 ML NEB INHALATION STA ×3 (09:27→12:23)
[2019-08-18] MEDS ORDERED: methylPREDNISolone SOD SUCCI 125 MG/2 ML VIAL IV STA (09:27)
--- NOTE | 2019-08-18 09:33 | ED ---
SOB HPI - General Chief Complaint: Shortness of Breath Stated Complaint: poss pneumonia Time Seen by Provider: 08/18/19 09:15 Source: patient, RN notes reviewed Mode of arrival: wheelchair Limitations: no limitations - History of Present Illness Initial Comments: This a 49-year-old female history of asthma states she's had 3 or 4 days of shortness of breath as he progressively worse she has exertional dyspnea and dyspnea at rest this is unchanged by her home medication. She also states she's had chest tightness she feels like an elephant sitting on her chest at times. She had fever the first day of this starting. Started as upper respiratory in fection she does have a child on the head sinus infection. No nausea no vomiting no other symptoms minimal rhinorrhea. She has had a cough productive of yellow-green phlegm. MD Complaint: shortness of breath - Related Data Home Medications Medication Instructions Recorded Confirmed Butalb/APAP/Caff 50-325-40Mg 1 tab PO Q8HR PRN 05/22/17 08/18/19 [Fioricet 50-325-40] DULoxetine HCL [Cymbalta] 60 mg PO HS 05/22/17 08/18/19 Ferrous Sulfate [Iron (65 MG 325 mg PO DAILY 05/22/17 08/18/19 Elemental)] Ibuprofen 800 mg PO BID PRN 05/22/17 08/18/19 Topiramate [Topamax] 100 mg PO BID 05/22/17 08/18/19 Pregabalin [Lyrica] 150 mg PO TID 01/12/18 08/18/19 Aspirin EC [Ecotrin Low Dose] 81 mg PO DAILY 06/06/18 08/18/19 Loratadine [Claritin] 10 mg PO DAILY 06/06/18 08/18/19 Verapamil Sr [Isoptin Sr] 180 mg PO DAILY 06/06/18 08/18/19 Albuterol Sulfate [Proair Hfa] 1 - 2 puff INHALATION RT-Q6H PRN 08/18/19 08/18/19 Furosemide [Lasix] 20 mg PO DAILY 08/18/19 08/18/19 HYDROcodone/APAP 10-325MG [[place] 1 tab PO TID PRN 08/18/19 08/18/19 10-325] Ipratropium-Albuterol Nebulize 3 ml INHALATION RT-QID PRN 08/18/19 08/18/19 [Duoneb 0.5 mg-3 mg/3 ml Soln] Allergies Allergy/AdvReac Type Severity Reaction Status Date / Time morphine Allergy Itching Verified 08/18/19 09:22 Sulfa (Sulfonamide Allergy RAPID Verified 08/18/19 09:22 Antibiotics) HEART RATE AND HIVES lactose AdvReac Diarrhea Verified 08/18/19 09:22 Review of Systems ROS Statement: Those systems with pertinent positive or pertinent negative responses have been documented in the HPI. ROS Other: All systems not noted in ROS Statement are negative. Past Medical History Past Medical History: Asthma, Hypertension, Osteoarthritis (OA), Sleep Apnea/CPAP/BIPAP Additional Past Medical History / Comment(s): RSD dx 2013 lesions on brain,"memory issues" possible MS no definitive dx as of yet, Spinal puncture, obesity, peripheral neuropathy diogenes feet/legs arms, migraines, murmur, occular hypertension History of Any Multi-Drug Resistant Organisms: None Reported Past Surgical History: Appendectomy, Section, Cholecystectomy, Heart Catheterization Additional Past Surgical History / Comment(s): carpal tunnel Bilateral twice, 1 cubital tunnel d&c, spinal puncture Past Anesthesia/Blood Transfusion Reactions: No Reported Reaction, Motion Sickness Additional Past Anesthesia/Blood Transfusion Reaction / Comment(s): jewel galaviz. "has had blood in past-no reaction" Past Psychological History: Anxiety, Depression Smoking Status: Current every day smoker Past Alcohol Use History: None Reported Past Drug Use History: Marijuana - Past Family History Mother Family Medical History: No Reported History Father Family Medical History: Coronary Artery Disease (CAD), Diabetes Mellitus, Thyroid Disorder Brother(s) Family Medical History: Diabetes Mellitus General Exam - General Exam Comments Initial Comments: This is a well-developed well-nourished obese female who is awake alert oriented 3, wheezing is noted at bedside Limitations: no limitations General appearance: alert, anxious, in distress Head exam: Present: atraumatic, normocephalic, normal inspection Eye exam: Present: normal appearance, PERRL, EOMI. Absent: scleral icterus, conjunctival injection, periorbital swelling ENT exam: Present: mucous membranes dry, other (Some boggy nasal mucosa) Neck exam: Present: normal inspection. Absent: tenderness, meningismus, lymphadenopathy Respiratory exam: Present: wheezes, accessory muscle use, decreased breath sounds. Absent: respiratory distress, rales, rhonchi, stridor Cardiovascular Exam: Present: normal rhythm, tachycardia, normal heart sounds. Absent: systolic murmur, diastolic murmur, rubs, gallop, clicks GI/Abdominal exam: Present: soft, normal bowel sounds. Absent: distended, tenderness, guarding, rebound, rigid Extremities exam: Present: normal inspection, full ROM, normal capillary refill. Absent: tenderness, pedal edema, joint swelling, calf tenderness Back exam: Present: normal inspection Neurological exam: Present: alert, oriented X3, CN II-XII intact Psychiatric exam: Present: normal affect, normal mood Skin exam: Present: warm, dry, intact, normal color. Absent: rash Course Vital Signs 08/18/19 08/18/19 08/18/19 09:00 09:02 09:16 Temperature 98.7 F Pulse Rate 103 H Respiratory 24 30 H Rate Blood Pressure 122/77 O2 Sat by Pulse 85 L 93 L Oximetry 08/18/19 08/18/19 08/18/19 09:56 10:06 12:07 Temperature Pulse Rate 88 91 96 Respiratory Rate Blood Pressure O2 Sat by Pulse Oximetry 08/18/19 08/18/19 08/18/19 12:18 12:19 12:45 Temperature Pulse Rate 92 92 88 Respiratory Rate Blood Pressure O2 Sat by Pulse Oximetry - Reevaluation(s) Reevaluation #1: 08/18/19 13:37 I did reevaluate the patient on multiple occasions she get minimal improvement t hus far with treatment she still demonstrates exertional dyspnea and hypoxemia. Procedures - Smoking Cessation Time Spent Discussing Smoking Cessation w/Patient (Minutes): 3 Patient Acknowledges Need for Cessation: Yes Medical Decision Making - Medical Decision Making I did discuss the findings the patient and her . Patient be admitted for asthma exacerbation with bronchitis she is a smoker we did discuss smoking cessation. - Lab Data Result diagrams: 08/18/19 09:28 08/18/19 09:28 Lab Results 08/18/19 08/18/19 08/18/19 Range/Units 09:28 09:28 09:28 WBC 9.6 (3.8-10.6) k/uL RBC 5.07 (3.80-5.40) m/uL Hgb 12.6 (11.4-16.0) gm/dL Hct 41.1 (34.0-46.0) % MCV 81.1 (80.0-100.0) fL MCH 24.9 L (25.0-35.0) pg MCHC 30.7 L (31.0-37.0) g/dL RDW 15.7 H (11.5-15.5) % Plt Count 265 (150-450) k/uL Neutrophils % 79 % Lymphocytes % 13 % Monocytes % 4 % Eosinophils % 2 % Basophils % 1 % Neutrophils # 7.5 (1.3-7.7) k/uL Lymphocytes # 1.3 (1.0-4.8) k/uL Monocytes # 0.3 (0-1.0) k/uL Eosinophils # 0.2 (0-0.7) k/uL Basophils # 0.1 (0-0.2) k/uL Hypochromasia Marked Poikilocytosis Slight PT (9.0-12.0) sec INR (<1.2) APTT (22.0-30.0) sec D-Dimer (<0.60) mg/L FEU VBG pH 7.37 (7.31-7.41) VBG pCO2 49 (37-51) mmHg VBG HCO3 28 (24-28) mmol/L Sodium 140 (137-145) mmol/L Potassium 4.6 (3.5-5.1) mmol/L Chloride 105 (98-107) mmol/L Carbon Dioxide 29 (22-30) mmol/L Anion Gap 6 mmol/L BUN 11 (7-17) mg/dL Creatinine 0.59 (0.52-1.04) mg/dL Est GFR (CKD-EPI)AfAm >90 (>60 ml/min/1.73 sqM) Est GFR (CKD-EPI)NonAf >90 (>60 ml/min/1.73 sqM) Glucose 126 H (74-99) mg/dL Calcium 9.3 (8.4-10.2) mg/dL Magnesium 2.1 (1.6-2.3) mg/dL Total Bilirubin 0.3 (0.2-1.3) mg/dL AST 22 (14-36) U/L ALT 22 (9-52) U/L Alkaline Phosphatase 92 (38-126) U/L Creatine Kinase 77 (30-135) U/L Troponin I (0.000-0.034) ng/mL NT-Pro-B Natriuret Pep pg/mL Total Protein 6.8 (6.3-8.2) g/dL Albumin 3.8 (3.5-5.0) g/dL Influenza Type A RNA (Not Detectd) Influenza Type B (PCR) (Not Detectd) 08/18/19 08/18/19 08/18/19 Range/Units 09:28 09: 09: WBC (3.8-10.6) k/uL RBC (3.80-5.40) m/uL Hgb (11.4-16.0) gm/dL Hct (34.0-46.0) % MCV (80.0-100.0) fL MCH (25.0-35.0) pg MCHC (31.0-37.0) g/dL RDW (11.5-15.5) % Plt Count (150-450) k/uL Neutrophils % % Lymphocytes % % Monocytes % % Eosinophils % % Basophils % % Neutrophils # (1.3-7.7) k/uL Lymphocytes # (1.0-4.8) k/uL Monocytes # (0-1.0) k/uL Eosinophils # (0-0.7) k/uL Basophils # (0-0.2) k/uL Hypochromasia Poikilocytosis PT 9.3 (9.0-12.0) sec INR 0.8 (<1.2) APTT 27.8 (22.0-30.0) sec D-Dimer 0.68 H (<0.60) mg/L FEU VBG pH (7.31-7.41) VBG pCO2 (37-51) mmHg VBG HCO3 (24-28) mmol/L Sodium (137-145) mmol/L Potassium (3.5-5.1) mmol/L Chloride (98-107) mmol/L Carbon Dioxide (22-30) mmol/L Anion Gap mmol/L BUN (7-17) mg/dL Creatinine (0.52-1.04) mg/dL Est GFR (CKD-EPI)AfAm (>60 ml/min/1.73 sqM) Est GFR (CKD-EPI)NonAf (>60 ml/min/1.73 sqM) Glucose (74-99) mg/dL Calcium (8.4-10.2) mg/dL Magnesium (1.6-2.3) mg/dL Total Bilirubin (0.2-1.3) mg/dL AST (14-36) U/L ALT (9-52) U/L Alkaline Phosphatase (38-126) U/L Creatine Kinase (30-135) U/L Troponin I <0.012 (0.000-0.034) ng/mL NT-Pro-B Natriuret Pep 114 pg/mL Total Protein (6.3-8.2) g/dL Albumin (3.5-5.0) g/dL Influenza Type A RNA (Not Detectd) Influenza Type B (PCR) (Not Detectd) 08/18/19 Range/Units 09:28 WBC (3.8-10.6) k/uL RBC (3.80-5.40) m/uL Hgb (11.4-16.0) gm/dL Hct (34.0-46.0) % MCV (80.0-100.0) fL MCH (25.0-35.0) pg MCHC (31.0-37.0) g/dL RDW (11.5-15.5) % Plt Count (150-450) k/uL Neutrophils % % Lymphocytes % % Monocytes % % Eosinophils % % Basophils % % Neutrophils # (1.3-7.7) k/uL Lymphocytes # (1.0-4.8) k/uL Monocytes # (0-1.0) k/uL Eosinophils # (0-0.7) k/uL Basophils # (0-0.2) k/uL Hypochromasia Poikilocytosis PT (9.0-12.0) sec INR (<1.2) APTT (22.0-30.0) sec D-Dimer (<0.60) mg/L FEU VBG pH (7.31-7.41) VBG pCO2 (37-51) mmHg VBG HCO3 (24-28) mmol/L Sodium (137-145) mmol/L Potassium (3.5-5.1) mmol/L Chloride (98-107) mmol/L Carbon Dioxide (22-30) mmol/L Anion Gap mmol/L BUN (7-17) mg/dL Creatinine (0.52-1.04) mg/dL Est GFR (CKD-EPI)AfAm (>60 ml/min/1.73 sqM) Est GFR (CKD-EPI)NonAf (>60 ml/min/1.73 sqM) Glucose (74-99) mg/dL Calcium (8.4-10.2) mg/dL Magnesium (1.6-2.3) mg/dL Total Bilirubin (0.2-1.3) mg/dL AST (14-36) U/L ALT (9-52) U/L Alkaline Phosphatase (38-126) U/L Creatine Kinase (30-135) U/L Troponin I (0.000-0.034) ng/mL NT-Pro-B Natriuret Pep pg/mL Total Protein (6.3-8.2) g/dL Albumin (3.5-5.0) g/dL Influenza Type A RNA Not Detected (Not Detectd) Influenza Type B (PCR) Not Detected (Not Detectd) - EKG Data -: EKG Interpreted by Ri EKG shows normal: sinus rhythm (Sinus rhythm a rate of 94. Interval 128 QRS duration 78 QT/QTC 362/452 low-voltage QRS poor R-wave progression) - Radiology Data Radiology results: report reviewed (I did review the imaging and report no definite evidence of any PE or infiltrate), image reviewed Critical Care Time Critical Care Time: Yes Critical Care Time: 39 minutes of critical care time which includes initial presentation with history physical labs x-rays multiple reevaluation the patient responsive therapy discussion with the patient family discussion with Dr. Li admission orders and documentation of the above Disposition Clinical Impression: Asthma with acute exacerbation, Acute respiratory distress syndrome in adult, Acute bronchitis, Hypoxemia, Smoking Disposition: ADMITTED IP TO THIS HOSP Condition: Fair Referrals: Erickson Li DO [Primary Care Provider] - 1-2 days
[2019-08-18 09:39] LABS: VBG PH 7.37 (7.31-7.41)
[2019-08-18 09:44] LABS: Basophils # (A) 0.1 k/uL (0-0.2); Basophils % (A) 1 %; Eosinophils # (A) 0.2 k/uL (0-0.7); Eosinophils % (A) 2 %; HCT 41.1 % (34.0-46.0); HGB 12.6 gm/dL (11.4-16.0); Hypochromasia Marked; Lymphocytes # (A) 1.3 k/uL (1.0-4.8); Lymphocytes % (A) 13 %; MCH 24.9 pg (25.0-35.0); MCHC 30.7 g/dL (31.0-37.0); MCV 81.1 fL (80.0-100.0); Mean Platelet Volume 9.6; Monocytes # (A) 0.3 k/uL (0-1.0); Monocytes % (A) 4 %; Neutrophils # (A) 7.5 k/uL (1.3-7.7); Neutrophils % (A) 79 %; Platelet Count 265 k/uL (150-450); Poikilocytosis Slight; RBC 5.07 m/uL (3.80-5.40); RDW 15.7 % (11.5-15.5); WBC 9.6 k/uL (3.8-10.6)
[2019-08-18] MEDS ORDERED: MAGNESIUM SULFATE-D5W PMX 1 GM in DEXTROSE/WATER 1 100ML.BAG IVPB ONE (09:46)
[2019-08-18 09:52] LABS: ALT 22 U/L (9-52); AST 22 U/L (14-36); African American GFR (CKD) >90 (>60 ml/min/1.73 sqM); Albumin 3.8 g/dL (3.5-5.0); Alkaline Phosphatase 92 U/L (38-126); Anion Gap 6 mmol/L; Blood Urea Nitrogen 11 mg/dL (7-17); Calcium 9.3 mg/dL (8.4-10.2); Carbon Dioxide 29 mmol/L (22-30); Chloride 105 mmol/L (98-107); Creatine Kinase 77 U/L (30-135); Glucose 126 mg/dL (74-99); Magnesium 2.1 mg/dL (1.6-2.3); Potassium 4.6 mmol/L (3.5-5.1); Sodium 140 mmol/L (137-145); Total Bilirubin 0.3 mg/dL (0.2-1.3); Total Protein 6.8 g/dL (6.3-8.2)
[2019-08-18 09:58] LABS: INR 0.8 (<1.2); Partial Thromboplastin Time 27.8 sec (22.0-30.0); Prothrombin Time 9.3 sec (9.0-12.0)
--- NOTE | 2019-08-18 09:58 | XR ---
EXAMINATION TYPE: XR chest 2V DATE OF EXAM: 08/18/2019 COMPARISON: 09/02/2018 HISTORY: 49-year-old female difficulty breathing, shortness of breath TECHNIQUE: AP and lateral views FINDINGS: Heart upper limits of normal in size. Mild interstitial prominence is unchanged. No consolidation or pleural effusion. IMPRESSION: Chronic changes, possible chronic bronchitis/asthma. No focal infiltrate.
[2019-08-18 10:21] LABS: D-Dimer 0.68 mg/L FEU (<0.60)
--- NOTE | 2019-08-18 12:33 | CT ---
EXAMINATION TYPE: CT angio chest DATE OF EXAM: 08/18/2019 COMPARISON: 01/12/2018 HISTORY: 49-year-old female Trouble breathing, wheezing, elevated d-dimer TECHNIQUE: Contiguous axial scanning of the chest performed with IV Contrast, patient injected with 1 00 mL of Isovue 300. Coronal/sagittal MIP reconstructions performed. CT DLP: 994.5 mGycm Automated exposure control for dose reduction was used. FINDINGS: Heart mildly enlarged without pericardial effusion. Extensive motion artifacts are present. Additiona l limitation due to patient's large body habitus. Ascending aorta appears tortuous and ectatic. Conventional branching anatomy. Borderline to mildly enlarged precarinal lymph node of 1.1 cm is unchanged. Some prominent bilateral hilar lymphoid tissue is unchanged. Prominent right infrahilar lymph nodes on the bronchial changes a re unchanged measuring up to 1.2 cm. No large central or lobar pulmonary embolus is identified. Segmental and more distal arterial branche s are essentially nondiagnostic for assessment of pulmonary embolus. 9 mm subpleural pulmonary nodule posterior right apex. Medial left apical pleural-parenchymal scarrin g. Mild diffuse bronchial wall thickening. Bands of atelectasis in the mid and lower lungs. Some mild nodular groundglass the left greater than right lung bases. 3 mm left mid lung pulmonary nodule axial 40. No pleural effusion. Small hernia. Visualized upper abdomen shows cholecystectomy clips. Mild degenerative disc disease throughout. IMPRESSION: 1. EXTENSIVE MOTION ARTIFACTS AND LARGE PATIENT BODY HABITUS DEGRADING ASSESSMENT FOR PULMONARY EMBOL US. NO LARGE CENTRAL OR LOBAR EMBOLUS. ASSESSMENT OF THE SEGMENTAL AND MORE DISTAL ARTERIAL BRANCHES IS NONDIAGNOSTIC AND EMBOLI IN THESE LOCATIONS CANNOT BE EXCLUDED ON THE BASIS OF THIS EXAM. 2. MILD GROUNDGLASS NODULARITY IN THE LEFT GREATER THAN RIGHT LUNG BASES COULD REPRESENT INFECTIOUS/I NFLAMMATORY FOCI. 3. MILDLY ENLARGED RIGHT GREATER THAN LEFT HILAR LYMPH NODES UNCHANGED FROM 01/12/2018 PROBABLY CHRONI C REACTIVE/POST INFLAMMATORY. 4. A COUPLE NEW PULMONARY NODULES MEASURING 9 AND 3 MM ON THE RIGHT AND LEFT SIDES, RESPECTIVELY. 6 M ONTH FOLLOW-UP CT RECOMMENDED TO REASSESS.
[2019-08-18] MEDS ORDERED: IPRATROPIUM-ALBUTEROL 3 ML NEB INHALATION PRN ×2 (13:57→15:58)
[2019-08-18] MEDS: IPRATROPIUM-ALBUTEROL 3 ML NEB INHALATION SCH ×2 (16:10→19:27)
--- NOTE | 2019-08-18 16:15 | P.CNPUL ---
History of Present Illness Consult date: 08/18/19 Requesting physician: Jake Valenzuela Reason for consult: dyspnea, cough, COPD, hypoxemia Chief complaint: Cough, shortness of breath, hypoxemia, congestion History of present illness: This is a 49-year-old white female patient of Dr. Li, with past medical history of moderately severe COPD with FEV1 of 61% of predicted, not normally oxygen dependent, who comes into the emergency department with a 2 day history of increasing shortness of breath, patient could hardly walk from her bedroom to her bathroom related to increasing dyspnea, was reporting some burning chest discomfort in her anterior chest and fluttering with shortness of breath, reported some increased swelling in lower extremities, but no fever or chills, no nausea vomiting or diarrhea. She had a recent sinus infection, with production of light green phlegm, and now she thinks he may have moved down to her chest, she is coughing, and bringing up some yellowish to dark green colored phlegm. In addition patient was hypoxemic at 85 on room air. Reports no hemoptysis, no chest wall tenderness. Chest x-ray showed chronic changes with mild interstitial prominence unchanged from prior exam, no focal infiltrates. Lab work was negative for leukocytosis, white blood cell count was 9.6, hemoglobin is 12.6, d-dimer was 0.68, venous blood gas was with pH of 7.37, pCO2 49, and bicarb of 28, electrolytes and renal profile were all within normal limits, troponin was negative 1, proBNP was 114, influenza screen was negative. She is also complaining of mild headache, patient does follow with Dr. Gregory and being worked up for MS. Patient is seen in the emergency department sitting on the edge of the stretcher, early on 5 L of oxygen with a pulse ox of 95%, she is afebrile, hemodynamically stable, fairly comfortable, other than complaining of a mild headache. No visual changes, no lightheadedness or dizziness. She has been started on empiric antibiotics in the form of oral Augmentin, IV steroids and breathing treatments, reports ongoing smoking, currently at a pack a day Review of Systems All systems: negative Constitutional: Reports weakness, Denies chills, Denies fever Eyes: denies blurred vision, denies pain Ears, nose, mouth and throat: Denies headache, Denies sore throat Cardiovascular: Denies chest pain, Denies shortness of breath Respiratory: Reports congestion, Reports cough with sputum, Reports dyspnea, Reports respiratory infections, Reports wheezing, Denies cough Gastrointestinal: Denies abdominal pain, Denies diarrhea, Denies nausea, Denies vomiting Genitourinary: Denies dysuria, Denies hematuria Musculoskeletal: Denies myalgias Integumentary: Denies pruritus, Denies rash Neurological: Reports headaches, Denies numbness, Denies weakness Psychiatric: Denies anxiety, Denies depression Endocrine: Denies fatigue, Denies weight change Past Medical History Past Medical History: COPD, Hypertension, Osteoarthritis (OA), Sleep Apnea/CPAP/BIPAP Additional Past Medical History / Comment(s): RSD dx 2013 lesions on brain,"memory issues" possible MS no definitive dx as of yet, Spinal puncture, obesity, peripheral neuropathy diogenes feet/legs arms, migraines, murmur, occular hypertension History of Any Multi-Drug Resistant Organisms: None Reported Past Surgical History: Appendectomy, Section, Cholecystectomy, Heart Catheterization Additional Past Surgical History / Comment(s): carpal tunnel Bilateral twice, 1 cubital tunnel d&c, spinal puncture Past Anesthesia/Blood Transfusion Reactions: No Reported Reaction, Motion Sickness Additional Past Anesthesia/Blood Transfusion Reaction / Comment(s): clausterphobia. "has had blood in past-no reaction" Past Psychological History: Anxiety, Depression Smoking Status: Current every day smoker Past Alcohol Use History: None Reported Past Drug Use History: Marijuana - Past Family History Mother Family Medical History: No Reported History Father Family Medical History: Coronary Artery Disease (CAD), Diabetes Mellitus, Thyroid Disorder Brother(s) Family Medical History: Diabetes Mellitus Medications and Allergies Home Medications Medication Instructions Recorded Confirmed Type Butalb/APAP/Caff 50-325-40Mg 1 tab PO Q8HR PRN 05/22/17 08/18/19 History [Fioricet 50-325-40] DULoxetine HCL [Cymbalta] 60 mg PO HS 05/22/17 08/18/19 History Ferrous Sulfate [Iron (65 MG 325 mg PO DAILY 05/22/17 08/18/19 History Elemental)] Ibuprofen 800 mg PO BID PRN 05/22/17 08/18/19 History Topiramate [Topamax] 100 mg PO BID 05/22/17 08/18/19 History Pregabalin [Lyrica] 150 mg PO TID 01/12/18 08/18/19 History Aspirin EC [Ecotrin Low Dose] 81 mg PO DAILY 06/06/18 08/18/19 History Loratadine [Claritin] 10 mg PO DAILY 06/06/18 08/18/19 History Verapamil Sr [Isoptin Sr] 180 mg PO DAILY 06/06/18 08/18/19 History Albuterol Sulfate [Proair Hfa] 1 - 2 puff INHALATION RT-Q6H PRN 08/18/19 08/18/19 History Furosemide [Lasix] 20 mg PO DAILY 08/18/19 08/18/19 History HYDROcodone/APAP 10-325MG [[place] 1 tab PO TID PRN 08/18/19 08/18/19 History 10-325] Ipratropium-Albuterol Nebulize 3 ml INHALATION RT-QID PRN 08/18/19 08/18/19 History [Duoneb 0.5 mg-3 mg/3 ml Soln] Allergies Allergy/AdvReac Type Severity Reaction Status Date / Time morphine Allergy Itching Verified 08/18/19 09:22 Sulfa (Sulfonamide Allergy RAPID Verified 08/18/19 09:22 Antibiotics) HEART RATE AND HIVES lactose AdvReac Diarrhea Verified 08/18/19 09:22 Physical Exam Vitals: Vital Signs Temp Pulse Pulse Resp BP BP Pulse Ox 08/18/19 15:33 98.6 F 90 24 161/90 95 08/18/19 12:45 88 08/18/19 12:19 92 08/18/19 12:18 92 08/18/19 12:07 96 08/18/19 10:06 91 08/18/19 09:56 88 08/18/19 09:16 93 L 08/18/19 09:02 30 H 08/18/19 09:00 98.7 F 103 H 24 122/77 85 L Intake and Output 08/18/19 08/18/19 08/18/19 06:59 14:59 22:59 Other: Weight 142.882 kg GENERAL EXAM: Alert, pleasant, morbidly obese 48-year-old white female comfortable in no apparent distress currently on 5 L of oxygen with a pulse ox of 95%. Patient does become dyspneic with ambulation, has a congested cough HEAD: Normocephalic/atraumatic. EYES: Normal reaction of pupils, equal size. Conjunctiva pink, sclera white. NOSE: Clear with pink turbinates. THROAT: No erythema or exudates. NECK: No masses, no JVD, no thyroid enlargement, no adenopathy. CHEST: No chest wall deformity. Symmetrical expansion. LUNGS: Equal air entry with bibasilar crackles, wheezing on forced exhale maneuver CVS: Regular rate and rhythm, normal S1 and S2, no gallops, no murmurs, no rubs ABDOMEN: Soft, nontender. No hepatosplenomegaly, normal bowel sounds, no guarding or rigidity. EXTREMITIES: No clubbing, no cyanosis, 2+ pulses and upper and lower extremities. There are mild changes of chronic venous stasis in lower extremities and mild pretibial edema MUSCULOSKELETAL: Muscle strength and tone normal. SPINE: No scoliosis or deformity SKIN: No rashes CENTRAL NERVOUS SYSTEM: Alert and oriented -3. No focal deficits, tone is normal in all 4 extremities. PSYCHIATRIC: Alert and oriented -3. Appropriate affect. Intact judgment and insight. Results - Laboratory Findings CBC and BMP: 08/18/19 09:28 08/18/19 09:28 PT/INR, D-dimer PT 9.3 sec (9.0-12.0) 08/18/19 09:28 INR 0.8 (<1.2) 08/18/19 09:28 D-Dimer 0.68 mg/L FEU (<0.60) H 08/18/19 09:28 Abnormal lab findings: Abnormal Labs 08/18/19 08/18/19 08/18/19 09:28 09:28 09:28 MCH 24.9 L MCHC 30.7 L RDW 15.7 H D-Dimer 0.68 H Glucose 126 H - Diagnostic Findings Chest x-ray: report reviewed, image reviewed CT scan - chest: report reviewed, image reviewed Assessment and Plan Plan: Assessment: #1. Acute hypoxic respiratory failure secondary to acute exacerbation of COPD, chest x-ray was reviewed and showed no evidence of acute pulmonary process. #2. Mildly elevated d-dimer, CT angios of the chest showed no definite central or lobar embolus. It did show mild groundglass nodularity in the left greater than right lung bases could be related to infectious or inflammatory etiology #3. Moderately severe COPD, with FEV1 of 61% of predicted, FVC of 60%, GOLD stage II, not oxygen dependent on a regular basis #4. Nicotine dependence, chronic and ongoing, currently at 1 pack daily #5. Morbid obesity #6. Anxiety/depression #7. Past medical history of CVA/TIA #8. Hypertension #9. Previous episode of pneumonia in December in the left lower lobe #10. Migraine headaches #11. Osteoarthritis #12. Sleep apnea #13. Memory impairment related to possibility of MS #14. Chronic pain Plan: Continue current antibiotic coverage, continue with IV steroids, DuoNeb, we'll add Pulmicort and Perforomist, we'll obtain ultrasound Dopplers of lower extremities to rule out DVT. Chest x-ray was negative for any evidence of acute pulmonary process, CTA chest without any definite central pulmonary embolism. Mild groundglass nodularity at the lung bases could be related to infectious or inflammatory etiology. We'll continue to follow, smoking cessation counseling was done I performed a history & physical examination of the patient and discussed their management with my nurse practitioner, Marilee Monte. I reviewed the nurse practitioner's note and agree with the documented findings and plan of care. Lung sounds are positive for diminished breath sounds, with bibasilar crackles. The findings and the impression was discussed with the patient. I attest to the documentation by the nurse practitioner. Time with Patient: Greater than 30
[2019-08-18] MEDS: NICOTINE 14MG/24HR PATCH TRANSDERM SCH (16:59)
[2019-08-18] MEDS: methylPREDNISolone SOD SUCCI 125 MG/2 ML VIAL IV SCH ×2 (17:00→23:08)
[2019-08-18] MEDS: PREGABALIN 75 MG CAP PO SCH ×2 (17:00→23:07)
[2019-08-18] MEDS: BUTALB/APAP/CAFF 50-325-40MG TAB PO PRN (17:26)
[2019-08-18] MEDS: IBUPROFEN 800 MG TAB PO PRN (17:28)
[2019-08-18] MEDS: FORMOTEROL FUMARATE 20 MCG/2 ML NEBU INHALATION SCH (19:27)
[2019-08-18] MEDS: BUDESONIDE 1 MG/2 ML NEBU INHALATION SCH (19:27)
[2019-08-18] MEDS: HYDROcodone/APAP 10-325MG 1 EACH TAB PO PRN (20:10)
[2019-08-18] MEDS: AMOXIC-POT CLAV 875-125MG 1 EACH TAB PO SCH (21:08)
[2019-08-18] MEDS: DULoxetine HCL 60 MG CAPSULE.DR PO SCH (21:08)
[2019-08-18] MEDS: TOPIRAMATE 100 MG TAB PO SCH (21:08)
--- NOTE | 2019-08-18 22:23 | US ---
EXAMINATION TYPE: US venous doppler duplex LE DATE OF EXAM: 08/18/2019 6:59 PM COMPARISON: US CLINICAL HISTORY: Rule out DVT. No HX of DVT. Patient is not on blood thinners. SIDE PERFORMED: Bilateral TECHNIQUE: The lower extremity deep venous system is examined utilizing real time linear array sonog carlita with graded compression, doppler sonography and color-flow sonography. VESSELS IMAGED: External Iliac Vein (EIV) Common Femoral Vein Deep Femoral Vein Greater Saphenous Vein * Femoral Vein Popliteal Vein Small Saphenous Vein * Proximal Calf Veins (* superficial vessels) FINDINGS: Limited study due to large patient body habitus, edema, and patient's pain level. Unable to visualize bilateral EIV and bilateral proximal calf veins. Patient cannot tolerate right distal femo ral vein compression. Limited visibility of left distal femoral vein in compression images. IMPRESSION: NEGATIVE FOR DVT BILATERAL LOWER EXTREMITIES, DISCUSSED.
[2019-08-18] MEDS: ZOLPIDEM 10 MG TAB PO PRN (23:08)
[2019-08-19] MEDS: methylPREDNISolone SOD SUCCI 125 MG/2 ML VIAL IV SCH ×4 (06:00→23:10)
[2019-08-19] MEDS: ASPIRIN 81 MG PO SCH (07:25)
[2019-08-19] MEDS: LORATADINE 10 MG TAB PO SCH (07:25)
[2019-08-19] MEDS: FUROSEMIDE 20 MG TAB PO SCH (07:25)
[2019-08-19] MEDS: FERROUS SULFATE 325 MG TAB PO SCH (07:25)
[2019-08-19] MEDS: AMOXIC-POT CLAV 875-125MG 1 EACH TAB PO SCH ×2 (07:26→22:05)
[2019-08-19] MEDS: PREGABALIN 75 MG CAP PO SCH ×3 (07:27→22:06)
[2019-08-19] MEDS: VERAPAMIL SR 180 MG TABLET.ER PO SCH (07:27)
[2019-08-19] MEDS: TOPIRAMATE 100 MG TAB PO SCH ×2 (07:27→22:05)
[2019-08-19] MEDS: BUDESONIDE 1 MG/2 ML NEBU INHALATION SCH ×2 (08:21→19:28)
[2019-08-19] MEDS: FORMOTEROL FUMARATE 20 MCG/2 ML NEBU INHALATION SCH ×2 (08:21→19:37)
[2019-08-19] MEDS: IPRATROPIUM-ALBUTEROL 3 ML NEB INHALATION SCH ×4 (08:22→19:27)
[2019-08-19] MEDS: HYDROcodone/APAP 10-325MG 1 EACH TAB PO PRN ×2 (11:11→23:13)
[2019-08-19 11:28] LABS: Glucose,Whole Blood 189 mg/dL (75-99)
[2019-08-19] MEDS: NICOTINE 14MG/24HR PATCH TRANSDERM SCH (12:28)
[2019-08-19] MEDS: INSULIN ASPART (NovoLOG) 100 UNIT/ML VIAL SQ SCH ×3 (12:28→23:07)
--- NOTE | 2019-08-19 13:42 | P.PN ---
Subjective Progress Note Date: 08/19/19 Principal diagnosis: Acute hypoxic respiratory failure secondary to an acute exacerbation chronic obstructive pulmonary disease. This is a 49-year-old white female patient of Dr. Li, with past medical history of moderately severe COPD with FEV1 of 61% of predicted, not normally oxygen dependent, who comes into the emergency department with a 2 day history of increasing shortness of breath, patient could hardly walk from her bedroom to her bathroom related to increasing dyspnea, was reporting some burning chest discomfort in her anterior chest and fluttering with shortness of breath, reported some increased swelling in lower extremities, but no fever or chills, no nausea vomiting or diarrhea. She had a recent sinus infection, with production of light green phlegm, and now she thinks he may have moved down to her chest, she is coughing, and bringing up some yellowish to dark green colored phlegm. In addition patient was hypoxemic at 85 on room air. Reports no hemoptysis, no chest wall tenderness. Chest x-ray showed chronic changes with mild interstitial prominence unchanged from prior exam, no focal infiltrates. Lab work was negative for leukocytosis, white blood cell count was 9.6, hemoglobin is 12.6, d-dimer was 0.68, venous blood gas was with pH of 7.37, pCO2 49, and bicarb of 28, electrolytes and renal profile were all within normal limits, troponin was negative 1, proBNP was 114, influenza screen was negative. She is also complaining of mild headache, patient does follow with Dr. Gregory and being worked up for MS. Patient is seen in the emergency department sitting on the edge of the stretcher, early on 5 L of oxygen with a pulse ox of 95%, she is afebrile, hemodynamically stable, fairly comfortable, other than complaining of a mild headache. No visual changes, no lightheadedness or dizziness. She has been started on empiric antibiotics in the form of oral Augmentin, IV steroids and breathing treatments, reports ongoing smoking, currently at a pack a day. The patient is seen today's number [id number] in follow-up on the regular medical floor. She is currently sitting up at bedside. Awake and alert in no acute distress. She is breathing just a bit easier today as compared to yesterday. Not quite back to her baseline. Still somewhat bronchospastic and wheezy. Computed tomography scan of the chest revealed mild groundglass nodularity in the left greater than right lung base is suspicious for infectious/inflammatory process. She is afebrile. Maintaining O2 saturation in low 90s on 3 L/m per nasal cannula. Blood culture reveals no growth to date. No leukocytosis. She remains on DuoNeb inhalations, Pulmicort and Perforomist inhalations, IV Solu- Medrol. Antibiotics in the form of Augmentin. NicoDerm patch is in place. Objective - Vital Signs Vital signs: Vital Signs Temp 98.1 F 08/19/19 11:22 Pulse 84 08/19/19 12:09 Resp 22 08/19/19 11:22 BP 145/74 08/19/19 11:22 Pulse Ox 93 L 08/19/19 11:22 Intake & Output 08/18/19 08/19/19 08/19/19 18:59 06:59 18:59 Intake Total 480 Balance 480 Weight 142.882 kg Intake: Oral 480 Other: Voiding Method Toilet Toilet # Voids 2 - Exam GENERAL EXAM: Alert, pleasant, morbidly obese 48-year-old female patient comfortable in no apparent distress currently on 3 L of oxygen HEAD: Normocephalic/atraumatic. EYES: Normal reaction of pupils, equal size. Conjunctiva pink, sclera white. NOSE: Clear with pink turbinates. THROAT: No erythema or exudates. NECK: No masses, no JVD, no thyroid enlargement, no adenopathy. CHEST: No chest wall deformity. Symmetrical expansion. LUNGS: Equal air entry with bibasilar crackles, wheezing on forced exhale maneuver CVS: Regular rate and rhythm, normal S1 and S2, no gallops, no murmurs, no rubs ABDOMEN: Soft, nontender. No hepatosplenomegaly, normal bowel sounds, no guarding or rigidity. EXTREMITIES: No clubbing, no cyanosis, 2+ pulses and upper and lower extremities. There are mild changes of chronic venous stasis in lower extremities and mild pretibial edema MUSCULOSKELETAL: Muscle strength and tone normal. SPINE: No scoliosis or deformity SKIN: No rashes CENTRAL NERVOUS SYSTEM: No focal deficits, tone is normal in all 4 extremities. PSYCHIATRIC: Alert and oriented -3. Appropriate affect. Intact judgment and insight. - Labs CBC & Chem 7: 08/18/19 09:28 08/18/19 09:28 Labs: Abnormal Lab Results - Last 24 Hours (Table) 08/19/19 Range/Units 11:21 POC Glucose (mg/dL) 189 H (75-99) mg/dL Microbiology - Last 24 Hours (Table) 08/18/19 09:28 Blood Culture - Preliminary Blood No Growth after 24 hours Assessment and Plan Assessment: Assessment: #1. Acute hypoxic respiratory failure secondary to acute exacerbation of COPD, chest x-ray was reviewed and showed no evidence of acute pulmonary process. #2. Mildly elevated d-dimer, CT angios of the chest showed no definite central or lobar embolus. It did show mild groundglass nodularity in the left greater than right lung bases could be related to infectious or inflammatory etiology #3. Moderately severe COPD, with FEV1 of 61% of predicted, FVC of 60%, GOLD stage II, not oxygen dependent on a regular basis #4. Nicotine dependence, chronic and ongoing, currently at 1 pack daily #5. Morbid obesity #6. Anxiety/depression #7. Past medical history of CVA/TIA #8. Hypertension #9. Previous episode of pneumonia in December in the left lower lobe #10. Migraine headaches #11. Osteoarthritis #12. Sleep apnea #13. Memory impairment related to possibility of MS #14. Chronic pain Plan: The patient was seen and evaluated by Dr. Benito. Chest x-ray, CAT scans and labs all reviewed. We'll continue with the current treatment plan for now. Not quite back to her baseline. We'll increase her activity as tolerated. We'll continue to follow. I, the cosigning physician, performed a history & physical examination of the patient. Lungs sounds with bilateral end expiratory wheeze, faint crackles in the bases, diminished. Maintaining good O2 saturations in the 90s on 3 L/m per nasal cannula. I discussed the assessment and plan of care with my nurse practitioner, Va Loving. I attest to the above note as dictated by her.
[2019-08-19 17:13] LABS: Glucose,Whole Blood 144 mg/dL (75-99)
[2019-08-19 20:11] LABS: Glucose,Whole Blood 193 mg/dL (75-99)
[2019-08-19] MEDS: DULoxetine HCL 60 MG CAPSULE.DR PO SCH (22:05)
[2019-08-19] MEDS: ZOLPIDEM 10 MG TAB PO PRN (22:06)
--- NOTE | 2019-08-19 23:46 | P.HPIM ---
History of Present Illness H&P Date: 08/19/19 This is a pleasant 49-year-old white female who was admitted to the emergency department with exacerbation of asthma\\COPD. Patient had a few day history of increasing shortness of breath with wheezing and chest tightness with feeling dizzy. She denies any chest pain she does admit to some leg swelling and degenerative osteoarthritis Review of Systems GENERAL: Patient denies fever. Denies chills. EYES: Denies blurred vision. Denies vision changes. Denies eye pain. EARS, NOSE, MOUTH, & THROAT: Denies headache. Denies sore throat. Denies ear pain. RESPIRATORY: Admits to shortness of breath. Denies sputum production. Denies hemoptysis. CARDIOVASCULAR: Denies chest pain or pressure. Denies palpitations. Denies arrhythmias. GASTROINTESTINAL: Denies abdominal pain. Denies diarrhea. Denies constipation. Denies nausea. Denies vomiting. Denies heartburn. Denies blood in the stool. GENITOURINARY: Denies urinary frequency. Denies burning. Denies dysuria. Denies cloudy urine. Denies blood in the urine. MUSCULOSKELETAL: myalgias. Admits to joint swelling. Has decreased range of motion. INTEGUMENTARY: Denies pruitis. Denies rash. PSYCHIATRIC: Denies suicidal or homicial ideations. ENDOCRINE: Denies weight change. Denies polydipsia. Denies polyuria. HEMATOLOGIC: Denies bleeding disorders. Past Medical History Past Medical History: COPD, Hypertension, Osteoarthritis (OA), Sleep Apnea/CPAP/BIPAP Additional Past Medical History / Comment(s): RSD dx 2013 lesions on brai n,"memory issues" possible MS no definitive dx as of yet, Spinal puncture, obesity, peripheral neuropathy diogenes feet/legs arms, migraines, murmur, occular hypertension History of Any Multi-Drug Resistant Organisms: None Reported Past Surgical History: Appendectomy, Section, Cholecystectomy, Heart Catheterization Additional Past Surgical History / Comment(s): carpal tunnel Bilateral twice, 1 cubital tunnel d&c, spinal puncture Past Anesthesia/Blood Transfusion Reactions: No Reported Reaction, Motion Sickness Additional Past Anesthesia/Blood Transfusion Reaction / Comment(s): clausterphobia. "has had blood in past-no reaction" Past Psychological History: Anxiety, Depression Smoking Status: Current every day smoker Past Alcohol Use History: None Reported Past Drug Use History: Marijuana - Past Family History Mother Family Medical History: No Reported History Father Family Medical History: Coronary Artery Disease (CAD), Diabetes Mellitus, Thyroid Disorder Brother(s) Family Medical History: Diabetes Mellitus Medications and Allergies Home Medications Medication Instructions Recorded Confirmed Type Butalb/APAP/Caff 50-325-40Mg 1 tab PO Q8HR PRN 05/22/17 08/18/19 History [Fioricet 50-325-40] DULoxetine HCL [Cymbalta] 60 mg PO HS 05/22/17 08/18/19 History Ferrous Sulfate [Iron (65 MG 325 mg PO DAILY 05/22/17 08/18/19 History Elemental)] Ibuprofen 800 mg PO BID PRN 05/22/17 08/18/19 History Topiramate [Topamax] 100 mg PO BID 05/22/17 08/18/19 History Pregabalin [Lyrica] 150 mg PO TID 01/12/18 08/18/19 History Aspirin EC [Ecotrin Low Dose] 81 mg PO DAILY 06/06/18 08/18/19 History Loratadine [Claritin] 10 mg PO DAILY 06/06/18 08/18/19 History Verapamil Sr [Isoptin Sr] 180 mg PO DAILY 06/06/18 08/18/19 History Albuterol Sulfate [Proair Hfa] 1 - 2 puff INHALATION RT-Q6H PRN 08/18/19 08/18/19 History Furosemide [Lasix] 20 mg PO DAILY 08/18/19 08/18/19 History HYDROcodone/APAP 10-325MG [[place] 1 tab PO TID PRN 08/18/19 08/18/19 History 10-325] Ipratropium-Albuterol Nebulize 3 ml INHALATION RT-QID PRN 08/18/19 08/18/19 History [Duoneb 0.5 mg-3 mg/3 ml Soln] Allergies Allergy/AdvReac Type Severity Reaction Status Date / Time morphine Allergy Itching Verified 08/18/19 09:22 Sulfa (Sulfonamide Allergy RAPID Verified 08/18/19 09:22 Antibiotics) HEART RATE AND HIVES Physical Exam Osteopathic Statement: *. No significant issues noted on an osteopathic structural exam other than those noted in the History and Physical/Consult. Vitals: Vital Signs Temp Pulse Pulse Resp BP Pulse Ox 08/19/19 19:45 97.8 F 76 18 159/81 93 L 08/19/19 19:40 84 08/19/19 19:27 82 08/19/19 16:16 84 08/19/19 16:03 84 08/19/19 15:58 71 22 08/19/19 12:09 84 08/19/19 11:50 84 08/19/19 11:22 98.1 F 71 22 145/74 93 L 08/19/19 08:45 88 08/19/19 08:38 88 08/19/19 08:37 88 08/19/19 08:22 88 08/19/19 08:00 85 20 08/19/19 05:00 98 F 85 20 172/77 93 L Intake and Output 08/19/19 08/19/19 08/20/19 14:59 22:59 06:59 Intake Total 1620 680 Balance 1620 680 Intake: Oral 1620 680 Other: Voiding Method Toilet Toilet Toilet # Voids 4 1 - Constitutional General appearance: morbidly obese - EENT Eyes: PERRLA ENT: normal oropharynx - Neck Neck: no lymphadenopathy Thyroid: negative: normal size, enlarged - Respiratory Respiratory: left: wheezing - Cardiovascular Rhythm: regular - Gastrointestinal General gastrointestinal: normal bowel sounds - Integumentary Integumentary: flushed - Neurologic Neurologic: CNII-XII intact - Musculoskeletal Musculoskeletal: gait normal - Psychiatric Psychiatric: A&O x's 3 Results CBC & Chem 7: 08/18/19 09:28 08/18/19 09:28 Labs: Abnormal Lab Results - Last 24 Hours (Table) 08/19/19 08/19/19 08/19/19 Range/Units 11:21 17:11 20:09 POC Glucose (mg/dL) 189 H 144 H 193 H (75-99) mg/dL Microbiology - Last 24 Hours (Table) 08/18/19 09:28 Blood Culture - Preliminary Blood No Growth after 24 hours Thrombosis Risk Factor Assmnt - Choose All That Apply Each Factor Represents 1 point: Age 41-60 years, Obesity (BMI >25) Other Risk Factors: No Other congenital or acquired thrombophilia - If yes, enter type in comment: No Thrombosis Risk Factor Assessment Total Risk Factor Score: 2 Thrombosis Risk Factor Assessment Level: Low Risk Assessment and Plan (1) Acute bronchitis Current Visit: Yes Status: Acute Code(s): J20.9 - ACUTE BRONCHITIS, UNSPECIFIED SNOMED Code(s): 98244770 (2) Acute respiratory distress syndrome in adult Current Visit: Yes Status: Acute Code(s): J80 - ACUTE RESPIRATORY DISTRESS SYNDROME SNOMED Code(s): 28925256 (3) Asthma with acute exacerbation Current Visit: Yes Status: Acute Code(s): J45.901 - UNSPECIFIED ASTHMA WITH (ACUTE) EXACERBATION SNOMED Code(s): 124865911 (4) Hypoxemia Current Visit: Yes Status: Acute Code(s): R09.02 - HYPOXEMIA SNOMED Code(s): 440712496 (5) Smoking Current Visit: Yes Status: Acute Code(s): F17.200 - NICOTINE DEPENDENCE, UNSPECIFIED, UNCOMPLICATED SNOMED Code(s): 75355913 (6) Morbid obesity Current Visit: Yes Status: Acute Code(s): E66.01 - MORBID (SEVERE) OBESITY DUE TO EXCESS CALORIES SNOMED Code(s): 885862179 Plan: Admit patient with pulmonary consultation and progress review chest x-ray. Place patient on oxygen and IV steroids and updrafts. Encouraged patient to be nicotine free intensive stay from cigarettes as soon as possible she wants to go on Chantix at discharge. Continue to follow patient and to spread discharge 1-2 days
[2019-08-20] MEDS: methylPREDNISolone SOD SUCCI 125 MG/2 ML VIAL IV SCH ×4 (05:36→23:40)
[2019-08-20 06:50] LABS: Glucose,Whole Blood 152 mg/dL (75-99)
[2019-08-20] MEDS: LORATADINE 10 MG TAB PO SCH (07:45)
[2019-08-20] MEDS: VERAPAMIL SR 180 MG TABLET.ER PO SCH (07:46)
[2019-08-20] MEDS: IBUPROFEN 800 MG TAB PO PRN ×2 (07:46→21:07)
[2019-08-20] MEDS: BUTALB/APAP/CAFF 50-325-40MG TAB PO PRN (07:46)
[2019-08-20] MEDS: FERROUS SULFATE 325 MG TAB PO SCH (07:47)
[2019-08-20] MEDS: TOPIRAMATE 100 MG TAB PO SCH ×2 (07:47→21:06)
[2019-08-20] MEDS: ASPIRIN 81 MG PO SCH (07:47)
[2019-08-20] MEDS: FUROSEMIDE 20 MG TAB PO SCH (07:48)
[2019-08-20] MEDS: AMOXIC-POT CLAV 875-125MG 1 EACH TAB PO SCH ×2 (07:49→21:06)
[2019-08-20] MEDS: INSULIN ASPART (NovoLOG) 100 UNIT/ML VIAL SQ SCH ×4 (07:50→21:06)
[2019-08-20] MEDS: PREGABALIN 75 MG CAP PO SCH ×3 (07:51→21:06)
[2019-08-20] MEDS: IPRATROPIUM-ALBUTEROL 3 ML NEB INHALATION SCH ×4 (08:18→18:52)
[2019-08-20] MEDS: FORMOTEROL FUMARATE 20 MCG/2 ML NEBU INHALATION SCH ×2 (08:18→18:53)
[2019-08-20] MEDS: BUDESONIDE 1 MG/2 ML NEBU INHALATION SCH ×2 (08:18→18:53)
[2019-08-20] MEDS: NICOTINE 14MG/24HR PATCH TRANSDERM SCH (10:44)
--- NOTE | 2019-08-20 10:47 | P.PN ---
Subjective Progress Note Date: 08/20/19 This is a pleasant 49-year-old white female who was admitted to the emergency department with exacerbation of asthma\COPD. Patient had a few day history of increasing shortness of breath with wheezing and chest tightness with feeling dizzy. She denies any chest pain she does admit to some leg swelling and degenerative osteoarthritis 08/20/2019 sitting up at side of bed, breathing improved,. Complains of nonproductive cough, chronic back pain. Minimal ambulation. Maintained on Augmentin, nebulized bronchodilators. Teary eyed this morning over multiple social/ physical issues. Maintaining O2 sats in the 90s on 2 L nasal cannula. Denies chest pain, palpitations. Denies lightheadedness, dizziness or focal deficits. Afebrile, preliminary blood culture negative. Blood sugars controlled. Objective - Vital Signs Vital signs: Vital Signs Temp 97.9 F 08/20/19 05:00 Pulse 82 08/20/19 08:42 Resp 20 08/20/19 05:00 BP 130/73 08/20/19 05:00 Pulse Ox 94 L 08/20/19 05:00 Intake & Output 08/19/19 08/20/19 08/20/19 18:59 06:59 18:59 Intake Total 2100 350 480 Balance 2100 350 480 Intake: Oral 2100 350 480 Other: Voiding Method Toilet Toilet # Voids 4 2 - Exam - Constitutional General appearance:sitting up at bedside, alert and oriented 3, no acute distress, teary-eyed - EENT Eyes: PERRLA ENT: normal oropharynx - Neck Neck: no lymphadenopathy Thyroid: negative: normal size, enlarged - Respiratory Respiratory: Bilateral bases diminished, no rhonchi wheezing or crackles - Cardiovascular Rhythm: regular - Gastrointestinal General gastrointestinal: Obese, soft, nontender, normal bowel sounds - Integumentary Integumentary: No rashes, no lesions - Neurologic Neurologic: CNII-XII intact - Labs CBC & Chem 7: 08/18/19 09:28 08/18/19 09:28 Labs: Abnormal Lab Results - Last 24 Hours (Table) 08/19/19 08/19/19 08/19/19 Range/Units 11:21 17:11 20:09 POC Glucose (mg/dL) 189 H 144 H 193 H (75-99) mg/dL 08/20/19 Range/Units 06:46 POC Glucose (mg/dL) 152 H (75-99) mg/dL Microbiology - Last 24 Hours (Table) 08/18/19 09:28 Blood Culture - Preliminary Blood No Growth after 24 hours Assessment and Plan Assessment: (1) Possible Acute bronchitis Current Visit: Yes Status: Acute Code(s): J20.9 - ACUTE BRONCHITIS, UNSPECIFIED SNOMED Code(s): 96123063 (2) Acute respiratory distress syndrome in adult Current Visit: Yes Status: Acute Code(s): J80 - ACUTE RESPIRATORY DISTRESS SYNDROME SNOMED Code(s): 52203430 (3) Asthma with acute exacerbation Current Visit: Yes Status: Acute Code(s): J45.901 - UNSPECIFIED ASTHMA WITH (ACUTE) EXACERBATION SNOMED Code(s): 569850571 (4) acute Hypoxic respiratory failure secondary to acute COPD and asthma exacerbation in a patient with moderate to severe COPD Current Visit: Yes Status: Acute Code(s): R09.02 - HYPOXEMIA SNOMED Code(s): 724658564 (5) ongoing nicotine dependence , 1 pack per day Current Visit: Yes Status: Acute Code(s): F17.200 - NICOTINE DEPENDENCE, UNSPECIFIED, UNCOMPLICATED SNOMED Code(s): 58109512 (6) Morbid obesity, BMI 57.6 Current Visit: Yes Status: Acute Code(s): E66.01 - MORBID (SEVERE) OBESITY DUE TO EXCESS CALORIES SNOMED Code(s): 802871073 (7) depression, anxiety (8) sleep apnea, reports CPAP machine brokem, needs replacement/repair (9) chronic pain Plan: Continue on current medication regime ,monitoring and symptomatic treatment. Maintain nebulized bronchodilators, Augmentin. Increase ambulation as tolerated. Smoking cessation addressed and will prescribe Chantix at discharge. Patient reports his CPAP machine broken, case management attempting to replace/repair patient's machine. Multiple social issues, patient sees counselor OP regularly. Continue on Wellbutrin, Cymbalta. Distraught over weight and its affects on her daily life. Discussed increasing activity slowly, daily. Encouragement given. Discharge planning in progress pending pulmonary clearance. The impression and plan of care has been dictated as directed. : I performed a history and examination of this patient, discussed the same with the dictator. I agree with the dictator's note ,documented as a scribe. Any additional findings or plans will be noted.
[2019-08-20 11:49] LABS: Glucose,Whole Blood 136 mg/dL (75-99)
[2019-08-20] MEDS: HYDROcodone/APAP 10-325MG 1 EACH TAB PO PRN (15:45)
--- NOTE | 2019-08-20 16:49 | P.PN ---
Subjective Progress Note Date: 08/20/19 This is a 49-year-old white female patient of Dr. Li, with past medical history of moderately severe COPD with FEV1 of 61% of predicted, not normally oxygen dependent, who comes into the emergency department with a 2 day history of increasing shortness of breath, patient could hardly walk from her bedroom to her bathroom related to increasing dyspnea, was reporting some burning chest discomfort in her anterior chest and fluttering with shortness of breath, reported some increased swelling in lower extremities, but no fever or chills, no nausea vomiting or diarrhea. She had a recent sinus infection, with production of light green phlegm, and now she thinks he may have moved down to her chest, she is coughing, and bringing up some yellowish to dark green colored phlegm. In addition patient was hypoxemic at 85 on room air. Reports no hemoptysis, no chest wall tenderness. Chest x-ray showed chronic changes with mild interstitial prominence unchanged from prior exam, no focal infiltrates. Lab work was negative for leukocytosis, white blood cell count was 9.6, hemoglobin is 12.6, d-dimer was 0.68, venous blood gas was with pH of 7.37, pCO2 49, and bicarb of 28, electrolytes and renal profile were all within normal limits, troponin was negative 1, proBNP was 114, influenza screen was negative. She is also complaining of mild headache, patient does follow with Dr. Gregory and being worked up for MS. Patient is seen in the emergency department sitting on the edge of the stretcher, early on 5 L of oxygen with a pulse ox of 95%, she is afebrile, hemodynamically stable, fairly comfortable, other than complaining of a mild headache. No visual changes, no lightheadedness or dizziness. She has been started on empiric antibiotics in the form of oral Augmentin, IV steroids and breathing treatments, reports ongoing smoking, currently at a pack a day. The patient is seen today's number [id number] in follow-up on the regular medical floor. She is currently sitting up at bedside. Awake and alert in no acute distress. She is breathing just a bit easier today as compared to yesterday. Not quite back to her baseline. Still somewhat bronchospastic and wheezy. Computed tomography scan of the chest revealed mild groundglass nodularity in the left greater than right lung base is suspicious for infectious/inflammatory process. She is afebrile. Maintaining O2 saturation in low 90s on 3 L/m per nasal cannula. Blood culture reveals no growth to date. No leukocytosis. She remains on DuoNeb inhalations, Pulmicort and Perforomist inhalations, IV Solu- Medrol. Antibiotics in the form of Augmentin. NicoDerm patch is in place. On 08/20/2019 I'm seeing this patient for a follow-up a slight improvement compared to yesterday. No chest pain. Less short of breath. Less bronchospastic and wheezy. Gradually improving. Not fully recovered. No fever. No chills. Still on a combination of do not, Pulmicort Respules and Perforomist nebulized treatments twice a day, still on IV Solu-Medrol and the patient is still on a dose of 60 mg IV push every 6 hours. She is switched to Augmentin.. She is action dependent and she is on 2 L about 2 by nasal cannula. No nausea. No vomiting. No altered mentation. The blood cultures been negative for now. Objective - Vital Signs Vital signs: Vital Signs Temp 97.1 F L 08/20/19 12:14 Pulse 76 08/20/19 15:48 Resp 20 08/20/19 15:48 BP 143/69 08/20/19 12:14 Pulse Ox 93 L 08/20/19 12:14 Intake & Output 08/19/19 08/20/19 08/20/19 18:59 06:59 18:59 Intake Total 2100 350 1920 Balance 2100 350 1920 Intake: Oral 2100 350 1920 Other: Voiding Method Toilet Toilet Toilet # Voids 4 2 4 - Exam GENERAL EXAM: Alert, pleasant, morbidly obese 48-year-old female patient comfortable in no apparent distress currently on 3 L of oxygen HEAD: Normocephalic/atraumatic. EYES: Normal reaction of pupils, equal size. Conjunctiva pink, sclera white. NOSE: Clear with pink turbinates. THROAT: No erythema or exudates. NECK: No masses, no JVD, no thyroid enlargement, no adenopathy. CHEST: No chest wall deformity. Symmetrical expansion. LUNGS: Equal air entry with bibasilar crackles, wheezing on forced exhale maneuver CVS: Regular rate and rhythm, normal S1 and S2, no gallops, no murmurs, no rubs ABDOMEN: Soft, nontender. No hepatosplenomegaly, normal bowel sounds, no guarding or rigidity. EXTREMITIES: No clubbing, no cyanosis, 2+ pulses and upper and lower extremities. There are mild changes of chronic venous stasis in lower extremities and mild pretibial edema MUSCULOSKELETAL: Muscle strength and tone normal. SPINE: No scoliosis or deformity SKIN: No rashes CENTRAL NERVOUS SYSTEM: No focal deficits, tone is normal in all 4 extremities. PSYCHIATRIC: Alert and oriented -3. Appropriate affect. Intact judgment and insight. - Labs CBC & Chem 7: 08/18/19 09:28 08/18/19 09:28 Labs: Abnormal Lab Results - Last 24 Hours (Table) 08/19/19 08/19/19 08/20/19 Range/Units 17:11 20:09 06:46 POC Glucose (mg/dL) 144 H 193 H 152 H (75-99) mg/dL 08/20/19 Range/Units 11:39 POC Glucose (mg/dL) 136 H (75-99) mg/dL Microbiology - Last 24 Hours (Table) 08/18/19 09:28 Blood Culture - Preliminary Blood No Growth after 48 hours Assessment and Plan Plan: #1. Acute hypoxic respiratory failure secondary to acute exacerbation of COPD, chest x-ray was reviewed and showed no evidence of acute pulmonary process. Gradually improving as the patient is gradually less bronchospastic and wheezy on a combination of bronchodilators and systemic steroids. #2. Mildly elevated d-dimer, CT angios of the chest showed no definite central or lobar embolus. It did show mild groundglass nodularity in the left greater than right lung bases could be related to infectious or inflammatory etiology #3. Moderately severe COPD, with FEV1 of 61% of predicted, FVC of 60%, GOLD s tage II, not oxygen dependent on a regular basis #4. Nicotine dependence, chronic and ongoing, currently at 1 pack daily #5. Morbid obesity #6. Anxiety/depression #7. Past medical history of CVA/TIA #8. Hypertension #9. Previous episode of pneumonia in December in the left lower lobe #10. Migraine headaches #11. Osteoarthritis #12. Sleep apnea #13. Memory impairment related to possibility of MS #14. Chronic pain Plan Ambulate this patient the hallway. Continue same treatment. Continue high-dose steroids. May consider tapering surgeries of tomorrow if clinically improved. Otherwise, we'll continue with the same treatment as the patient is still symptomatic from her ongoing COPD exacerbation. We'll continue to follow.
[2019-08-20 17:08] LABS: Glucose,Whole Blood 178 mg/dL (75-99)
[2019-08-20 20:29] LABS: Glucose,Whole Blood 173 mg/dL (75-99)
[2019-08-20] MEDS: DULoxetine HCL 60 MG CAPSULE.DR PO SCH (21:05)
[2019-08-20] MEDS: ZOLPIDEM 10 MG TAB PO PRN (23:40)
[2019-08-21] MEDS: methylPREDNISolone SOD SUCCI 125 MG/2 ML VIAL IV SCH ×4 (05:35→23:23)
[2019-08-21 07:02] LABS: Glucose,Whole Blood 135 mg/dL (75-99)
[2019-08-21] MEDS: INSULIN ASPART (NovoLOG) 100 UNIT/ML VIAL SQ SCH ×4 (07:08→22:28)
[2019-08-21] MEDS: LORATADINE 10 MG TAB PO SCH (08:16)
[2019-08-21] MEDS: PREGABALIN 75 MG CAP PO SCH ×3 (08:16→22:44)
[2019-08-21] MEDS: FERROUS SULFATE 325 MG TAB PO SCH (08:16)
[2019-08-21] MEDS: NICOTINE 14MG/24HR PATCH TRANSDERM SCH (08:16)
[2019-08-21] MEDS: TOPIRAMATE 100 MG TAB PO SCH ×2 (08:16→22:26)
[2019-08-21] MEDS: VERAPAMIL SR 180 MG TABLET.ER PO SCH (08:16)
[2019-08-21] MEDS: BUDESONIDE 1 MG/2 ML NEBU INHALATION SCH ×2 (08:16→19:40)
[2019-08-21] MEDS: ASPIRIN 81 MG PO SCH (08:16)
[2019-08-21] MEDS: FORMOTEROL FUMARATE 20 MCG/2 ML NEBU INHALATION SCH ×2 (08:16→19:40)
[2019-08-21] MEDS: AMOXIC-POT CLAV 875-125MG 1 EACH TAB PO SCH ×2 (08:16→22:25)
[2019-08-21] MEDS: IPRATROPIUM-ALBUTEROL 3 ML NEB INHALATION SCH ×4 (08:16→19:40)
[2019-08-21] MEDS: HYDROcodone/APAP 10-325MG 1 EACH TAB PO PRN ×2 (08:20→19:30)
[2019-08-21] MEDS: FUROSEMIDE 20 MG TAB PO SCH (08:23)
[2019-08-21 11:30] LABS: Glucose,Whole Blood 130 mg/dL (75-99)
--- NOTE | 2019-08-21 12:14 | P.PN ---
Subjective Progress Note Date: 08/21/19 Principal diagnosis: Acute hypoxic respiratory failure secondary to an acute exacerbation chronic obstructive pulmonary disease. This is a 49-year-old white female patient of Dr. Li, with past medical history of moderately severe COPD with FEV1 of 61% of predicted, not normally oxygen dependent, who comes into the emergency department with a 2 day history of increasing shortness of breath, patient could hardly walk from her bedroom to her bathroom related to increasing dyspnea, was reporting some burning chest discomfort in her anterior chest and fluttering with shortness of breath, reported some increased swelling in lower extremities, but no fever or chills, no nausea vomiting or diarrhea. She had a recent sinus infection, with production of light green phlegm, and now she thinks he may have moved down to her chest, she is coughing, and bringing up some yellowish to dark green colored phlegm. In addition patient was hypoxemic at 85 on room air. Reports no hemoptysis, no chest wall tenderness. Chest x-ray showed chronic changes with mild interstitial prominence unchanged from prior exam, no focal infiltrates. Lab work was negative for leukocytosis, white blood cell count was 9.6, hemoglobin is 12.6, d-dimer was 0.68, venous blood gas was with pH of 7.37, pCO2 49, and bicarb of 28, electrolytes and renal profile were all within normal limits, troponin was negative 1, proBNP was 114, influenza screen was negative. She is also complaining of mild headache, patient does follow with Dr. Gregory and being worked up for MS. Patient is seen in the emergency department sitting on the edge of the stretcher, early on 5 L of oxygen with a pulse ox of 95%, she is afebrile, hemodynamically stable, fairly comfortable, other than complaining of a mild headache. No visual changes, no lightheadedness or dizziness. She has been started on empiric antibiotics in the form of oral Augmentin, IV steroids and breathing treatments, reports ongoing smoking, currently at a pack a day. The patient is seen today August 21 2019 in follow-up. She is improved today as compared to yesterday. Not quite back to her baseline. Still with complaints of dyspnea on exertion. She did ambulate in the bain on room air and stayed in the 90s. Blood culture shows no growth. She remains on DuoNeb inhalations, Pulmicort and Perforomist inhalations, IV Solu-Medrol, antibiotics in the form of Augmentin. NicoDerm patch is in place. Objective - Vital Signs Vital signs: Vital Signs Temp 97.7 F 08/21/19 05:00 Pulse 84 08/21/19 11:45 Resp 20 08/21/19 05:00 BP 165/73 08/21/19 05:00 Pulse Ox 94 L 08/21/19 05:00 Intake & Output 08/20/19 08/21/19 08/21/19 18:59 06:59 18:59 Intake Total 1919 Balance 1919 Intake: Oral 1919 Other: Voiding Method Toilet Toilet Toilet # Voids 4 2 - Exam GENERAL EXAM: Alert, pleasant, morbidly obese 48-year-old female patient comfortable in no apparent distress currently on room air HEAD: Normocephalic/atraumatic. EYES: Normal reaction of pupils, equal size. Conjunctiva pink, sclera white. NOSE: Clear with pink turbinates. THROAT: No erythema or exudates. NECK: No masses, no JVD, no thyroid enlargement, no adenopathy. CHEST: No chest wall deformity. Symmetrical expansion. LUNGS: Equal air entry with wheezing on forced exhale maneuver CVS: Regular rate and rhythm, normal S1 and S2, no gallops, no murmurs, no rubs ABDOMEN: Soft, nontender. No hepatosplenomegaly, normal bowel sounds, no guarding or rigidity. EXTREMITIES: No clubbing, no cyanosis, 2+ pulses and upper and lower extremities. There are mild changes of chronic venous stasis in lower extremities and mild pretibial edema MUSCULOSKELETAL: Muscle strength and tone normal. SPINE: No scoliosis or deformity SKIN: No rashes CENTRAL NERVOUS SYSTEM: No focal deficits, tone is normal in all 4 extremities. PSYCHIATRIC: Alert and oriented -3. Appropriate affect. Intact judgment and insight. - Labs CBC & Chem 7: 08/18/19 09:28 08/18/19 09:28 Labs: Abnormal Lab Results - Last 24 Hours (Table) 08/20/19 08/20/19 08/21/19 Range/Units 17:04 20:28 07:01 POC Glucose (mg/dL) 178 H 173 H 135 H (75-99) mg/dL 08/21/19 Range/Units 11:29 POC Glucose (mg/dL) 130 H (75-99) mg/dL Microbiology - Last 24 Hours (Table) 08/18/19 09:28 Blood Culture - Preliminary Blood No Growth after 72 hours Assessment and Plan Assessment: Assessment: #1. Acute hypoxic respiratory failure secondary to acute exacerbation of COPD, chest x-ray was reviewed and showed no evidence of acute pulmonary process. #2. Mildly elevated d-dimer, CT angios of the chest showed no definite central or lobar embolus. It did show mild groundglass nodularity in the left greater than right lung bases could be related to infectious or inflammatory etiology #3. Moderately severe COPD, with FEV1 of 61% of predicted, FVC of 60%, GOLD stage II, not oxygen dependent on a regular basis #4. Nicotine dependence, chronic and ongoing, currently at 1 pack daily #5. Morbid obesity #6. Anxiety/depression #7. Past medical history of CVA/TIA #8. Hypertension #9. Previous episode of pneumonia in December in the left lower lobe #10. Migraine headaches #11. Osteoarthritis #12. Sleep apnea #13. Memory impairment related to possibility of MS #14. Chronic pain Plan: The patient was seen and evaluated by Dr. Benito. We'll continue with the current treatment plan for now. Not quite back to her baseline. We'll increase her activity as tolerated. Probable home in the a.m. We'll continue to follow. I, the cosigning physician, performed a history & physical examination of the patient. Lungs sounds with bilateral end expiratory wheeze, faint crackles in the bases, diminished. Maintaining good O2 saturations in the 90s on room air. I discussed the assessment and plan of care with my nurse practitioner, Va Loving. I attest to the above note as dictated by her.
[2019-08-21] MEDS: BUTALB/APAP/CAFF 50-325-40MG TAB PO PRN (13:07)
[2019-08-21] MEDS: IBUPROFEN 800 MG TAB PO PRN ×2 (16:03→22:43)
[2019-08-21 17:13] LABS: Glucose,Whole Blood 130 mg/dL (75-99)
--- NOTE | 2019-08-21 19:28 | P.PN ---
Subjective Progress Note Date: 08/21/19 s some pleasant 6le who was admitted for acute shortness of breath related to acute exacerbation of asthma. Patient is doing slightly better today however she is still on high dose of IV steroids.she states overall she does feel better and has improved and she has less tearful today about her medical condition. Objective - Vital Signs Vital signs: Vital Signs Temp 97.6 F 08/21/19 11:56 Pulse 87 08/21/19 15:25 Resp 18 08/21/19 11:56 BP 166/80 08/21/19 11:56 Pulse Ox 96 08/21/19 11:56 Intake & Output 08/21/19 08/21/19 08/22/19 06:59 18:59 06:59 Intake Total 600 Balance 600 Intake: Oral 600 Other: Voiding Method Toilet Toilet # Voids 2 2 - Exam GENERAL: This is a -49 -year-old alert and oriented no is present. year-old in no apparent distress at the time of examination. Pleasant and cooperative. HEENT: Head is atraumatic, normocephalic. Pupils are equal, round, and reactive to light. Sclerae anicteric. Conjunctivae are clear. Mucus membranes of the mouth are moist. Neck is supple. RESPIRATORY: Clear to auscultation. No wheezes, rales, or rhonchi. No use of accessory muscles. No chest wall tenderness is noted on palpation or with deep breathing. CARDIOVASCULAR: Regular rate and rhythm. S1 and S2 noted. No systolic or diastolic murmur auscultated. No JVD noted. No S3 or S4 noted. GASTROINTESTINAL: No distention noted. Abdomen soft and round. Normal active bowel sounds auscultated x 4 quadrants. No pain or tenderness noted upon palpation. INTEGUMENTARY: No cyanosis. No jaundice. No rashes noted. No cellulitis noted. EXTREMITIES: 2+ peripheral pulses. No evidence of peripheral edema. No calf tenderness noted. NEUROLOGIC: Cranial nerves II-XII intact. PSYCHIATRIC: Awake, alert, and oriented X 3. Appropriate affect. Intact judgement and insight. - Labs CBC & Chem 7: 08/18/19 09:28 08/18/19 09:28 Labs: Abnormal Lab Results - Last 24 Hours (Table) 09/26/19 09/27/19 09/27/19 Range/Units 20:28 07:01 11:29 POC Glucose (mg/dL) 173 H 135 H 130 H (75-99) mg/dL 08/21/19 Range/Units 17:12 POC Glucose (mg/dL) 130 H (75-99) mg/dL Microbiology - Last 24 Hours (Table) 08/18/19 09:28 Blood Culture - Preliminary Blood No Growth after 72 hours Assessment and Plan (1) Acute bronchitis Current Visit: Yes Status: Acute Code(s): J20.9 - ACUTE BRONCHITIS, UNSPECIFIED SNOMED Code(s): 82328663 (2) Acute respiratory distress syndrome in adult Current Visit: Yes Status: Acute Code(s): J80 - ACUTE RESPIRATORY DISTRESS SYNDROME SNOMED Code(s): 66348143 (3) Asthma with acute exacerbation Current Visit: Yes Status: Acute Code(s): J45.901 - UNSPECIFIED ASTHMA WITH (ACUTE) EXACERBATION SNOMED Code(s): 410592184 (4) Hypoxemia Current Visit: Yes Status: Acute Code(s): R09.02 - HYPOXEMIA SNOMED Code(s): 074041555 (5) Smoking Current Visit: Yes Status: Acute Code(s): F17.200 - NICOTINE DEPENDENCE, UNSPECIFIED, UNCOMPLICATED SNOMED Code(s): 64291358 (6) Morbid obesity Current Visit: Yes Status: Acute Code(s): E66.01 - MORBID (SEVERE) OBESITY DUE TO EXCESS CALORIES SNOMED Code(s): 112465097 Plan: patient will be continued to be evaluated and weaned off steroids when appropriate. We anticipate the next 24 hours at a chance for discharge on taper dose of prednisone and a Chantix prescription. We'll continue to follow patient progress. [facility] hospitalists group is following for the weekend.
[2019-08-21 20:12] LABS: Glucose,Whole Blood 195 mg/dL (75-99)
[2019-08-21] MEDS: DULoxetine HCL 60 MG CAPSULE.DR PO SCH (22:26)
[2019-08-21] MEDS: ZOLPIDEM 10 MG TAB PO PRN (23:26)
[2019-08-22] MEDS: HYDROcodone/APAP 10-325MG 1 EACH TAB PO PRN ×2 (04:04→17:37)
[2019-08-22] MEDS: methylPREDNISolone SOD SUCCI 125 MG/2 ML VIAL IV SCH (05:59)
[2019-08-22 06:57] LABS: Glucose,Whole Blood 122 mg/dL (75-99)
[2019-08-22] MEDS: BUDESONIDE 1 MG/2 ML NEBU INHALATION SCH ×2 (07:26→19:14)
[2019-08-22] MEDS: IPRATROPIUM-ALBUTEROL 3 ML NEB INHALATION SCH ×4 (07:26→19:14)
[2019-08-22] MEDS: FORMOTEROL FUMARATE 20 MCG/2 ML NEBU INHALATION SCH ×2 (07:38→19:14)
[2019-08-22] MEDS: INSULIN ASPART (NovoLOG) 100 UNIT/ML VIAL SQ SCH ×4 (08:35→22:42)
[2019-08-22] MEDS: FERROUS SULFATE 325 MG TAB PO SCH (09:26)
[2019-08-22] MEDS: ASPIRIN 81 MG PO SCH (09:26)
[2019-08-22] MEDS: PREGABALIN 75 MG CAP PO SCH ×3 (09:26→22:42)
[2019-08-22] MEDS: VERAPAMIL SR 180 MG TABLET.ER PO SCH (09:27)
[2019-08-22] MEDS: FUROSEMIDE 20 MG TAB PO SCH (09:27)
[2019-08-22] MEDS: LORATADINE 10 MG TAB PO SCH (09:27)
[2019-08-22] MEDS: AMOXIC-POT CLAV 875-125MG 1 EACH TAB PO SCH ×2 (09:27→21:09)
[2019-08-22] MEDS: TOPIRAMATE 100 MG TAB PO SCH ×2 (09:28→21:09)
[2019-08-22 11:35] LABS: Glucose,Whole Blood 193 mg/dL (75-99)
[2019-08-22] MEDS: predniSONE 20 MG TAB PO SCH (11:38)
--- NOTE | 2019-08-22 13:38 | P.PN ---
Subjective Patient is admitted for asthma exacerbation patient is clinically doing well will not wheezing at this time but per neurology is recommending one more day of monitoring. Although Complains of not feeling well patient is comparing of acid reflux symptoms because of ibuprofen and steroids patient was switched to oral steroids and patient was started on Protonix Constitutional: Denied any fatigue denied any fever. Cardio vascular: denied any chest pain, palpitations Gastrointestinal as mentioned above Pulmonary: Denied any shortness of breath cough Neurologic denied any new focal deficits All inpatient medications were reviewed and appropriate changes in these medications as dictated in the interval history and assessment and plan. Objective - Vital Signs Vital signs: Vital Signs Temp 97.6 F 08/22/19 11:27 Pulse 78 08/22/19 11:27 Resp 16 08/22/19 11:27 BP 160/77 08/22/19 11:27 Pulse Ox 95 08/22/19 11:27 Intake & Output 08/21/19 08/22/19 08/22/19 18:59 06:59 18:59 Intake Total 600 Balance 600 Intake: Oral 600 Other: Voiding Method Toilet Toilet # Voids 2 2 - Exam PHYSICAL EXAMINATION: GENERAL: The patient is alert and oriented x3, not in any acute distress. Obese HEENT: Pupils are round and equally reacting to light. EOMI. No scleral icterus. No conjunctival pallor. Normocephalic, atraumatic. No pharyngeal erythema. No thyromegaly. CARDIOVASCULAR: S1 and S2 present. No murmurs, rubs, or gallops. PULMONARY: Chest is clear to auscultation, no wheezing or crackles. ABDOMEN: Soft, nontender, nondistended, normoactive bowel sounds. No palpable organomegaly. MUSCULOSKELETAL: No joint swelling or deformity. EXTREMITIES: No cyanosis, clubbing, or pedal edema. NEUROLOGICAL: Gross neurological examination did not reveal any focal deficits. SKIN: No rashes. - Labs CBC & Chem 7: 08/18/19 09:28 08/18/19 09:28 Labs: Abnormal Lab Results - Last 24 Hours (Table) 08/21/19 08/21/19 08/22/19 Range/Units 17:12 20:10 06:55 POC Glucose (mg/dL) 130 H 195 H 122 H (75-99) mg/dL 08/22/19 Range/Units 11:30 POC Glucose (mg/dL) 193 H (75-99) mg/dL Microbiology - Last 24 Hours (Table) 08/18/19 09:28 Blood Culture - Preliminary Blood No Growth after 96 hours Assessment and Plan Plan: GERD hypoxic respiratory failure 77 Admission which resolved did not believe patient will require oxygen With the patient that oxygen patient is not wheezing today. -Continue nicotine dependence: Counseling was provided -Obesity -Depression and anxiety disorder -Hypertension -Migraine -Gastroesophageal reflux disease from ibuprofen and the steroids will start her on Protonix -Osteoarthritis -Sleep apnea -Memory impairment secondary to MS but patient doesn't have any muscle exacerbation -Chronic pain
--- NOTE | 2019-08-22 14:00 | P.PN ---
Subjective Progress Note Date: 08/22/19 Principal diagnosis: Acute hypoxic respiratory failure secondary to an acute exacerbation chronic obstructive pulmonary disease. This is a 49-year-old white female patient of Dr. Li, with past medical history of moderately severe COPD with FEV1 of 61% of predicted, not normally oxygen dependent, who comes into the emergency department with a 2 day history of increasing shortness of breath, patient could hardly walk from her bedroom to her bathroom related to increasing dyspnea, was reporting some burning chest discomfort in her anterior chest and fluttering with shortness of breath, reported some increased swelling in lower extremities, but no fever or chills, no nausea vomiting or diarrhea. She had a recent sinus infection, with production of light green phlegm, and now she thinks he may have moved down to her chest, she is coughing, and bringing up some yellowish to dark green colored phlegm. In addition patient was hypoxemic at 85 on room air. Reports no hemoptysis, no chest wall tenderness. Chest x-ray showed chronic changes with mild interstitial prominence unchanged from prior exam, no focal infiltrates. Lab work was negative for leukocytosis, white blood cell count was 9.6, hemoglobin is 12.6, d-dimer was 0.68, venous blood gas was with pH of 7.37, pCO2 49, and bicarb of 28, electrolytes and renal profile were all within normal limits, troponin was negative 1, proBNP was 114, influenza screen was negative. She is also complaining of mild headache, patient does follow with Dr. Gregory and being worked up for MS. Patient is seen in the emergency department sitting on the edge of the stretcher, early on 5 L of oxygen with a pulse ox of 95%, she is afebrile, hemodynamically stable, fairly comfortable, other than complaining of a mild headache. No visual changes, no lightheadedness or dizziness. She has been started on empiric antibiotics in the form of oral Augmentin, IV steroids and breathing treatments, reports ongoing smoking, currently at a pack a day. The patient is seen today August 21 2019 in follow-up. She is improved today as compared to yesterday. Not quite back to her baseline. Still with complaints of dyspnea on exertion. She did ambulate in the bain on room air and stayed in the 90s. Blood culture shows no growth. She remains on DuoNeb inhalations, Pulmicort and Perforomist inhalations, IV Solu-Medrol, antibiotics in the form of Augmentin. NicoDerm patch is in place. The patient is seen today 08/22/2019 in follow-up on the regular medical floor. She is currently sitting up at the bedside. Awake and alert in no acute distress. Currently maintaining O2 saturation in the mid 90s on room air. Afebrile. Cultures reveal no growth. She remains on DuoNeb inhalations, Augmentin, oral prednisone. NicoDerm patch is in place. She's been up ambulating with assistance. She is still not feeling back to her baseline. Objective - Vital Signs Vital signs: Vital Signs Temp 97.6 F 08/22/19 11:27 Pulse 78 08/22/19 11:27 Resp 16 08/22/19 11:27 BP 160/77 08/22/19 11:27 Pulse Ox 95 08/22/19 11:27 Intake & Output 08/21/19 08/22/19 08/22/19 18:59 06:59 18:59 Intake Total 600 Balance 600 Intake: Oral 600 Other: Voiding Method Toilet Toilet # Voids 2 2 - Exam GENERAL EXAM: Alert, morbidly obese 48-year-old female patient comfortable in no apparent distress currently on room air HEAD: Normocephalic/atraumatic. EYES: Normal reaction of pupils, equal size. Conjunctiva pink, sclera white. NOSE: Clear with pink turbinates. THROAT: No erythema or exudates. NECK: No masses, no JVD, no thyroid enlargement, no adenopathy. CHEST: No chest wall deformity. Symmetrical expansion. LUNGS: Equal air entry with wheezing on forced exhale maneuver CVS: Regular rate and rhythm, normal S1 and S2, no gallops, no murmurs, no rubs ABDOMEN: Soft, nontender. No hepatosplenomegaly, normal bowel sounds, no guarding or rigidity. EXTREMITIES: No clubbing, no cyanosis, 2+ pulses and upper and lower extremities. There are mild changes of chronic venous stasis in lower extremities and mild pretibial edema MUSCULOSKELETAL: Muscle strength and tone normal. SPINE: No scoliosis or deformity SKIN: No rashes CENTRAL NERVOUS SYSTEM: No focal deficits, tone is normal in all 4 extremities. PSYCHIATRIC: Alert and oriented -3. Appropriate affect. Intact judgment and insight. - Labs CBC & Chem 7: 09/24/19 09:28 08/18/19 09:28 Labs: Abnormal Lab Results - Last 24 Hours (Table) 08/21/19 08/21/19 08/22/19 Range/Units 17:12 20:10 06:55 POC Glucose (mg/dL) 130 H 195 H 122 H (75-99) mg/dL 08/22/19 Range/Units 11:30 POC Glucose (mg/dL) 193 H (75-99) mg/dL Microbiology - Last 24 Hours (Table) 08/18/19 09:28 Blood Culture - Preliminary Blood No Growth after 96 hours Assessment and Plan Assessment: Assessment: #1. Acute hypoxic respiratory failure secondary to acute exacerbation of COPD, chest x-ray was reviewed and showed no evidence of acute pulmonary process. #2. Mildly elevated d-dimer, CT angios of the chest showed no definite central or lobar embolus. It did show mild groundglass nodularity in the left greater than right lung bases could be related to infectious or inflammatory etiology #3. Moderately severe COPD, with FEV1 of 61% of predicted, FVC of 60%, GOLD stage II, not oxygen dependent on a regular basis #4. Nicotine dependence, chronic and ongoing, currently at 1 pack daily #5. Morbid obesity #6. Anxiety/depression #7. Past medical history of CVA/TIA #8. Hypertension #9. Previous episode of pneumonia in December in the left lower lobe #10. Migraine headaches #11. Osteoarthritis #12. Sleep apnea #13. Memory impairment related to possibility of MS #14. Chronic pain Plan: The patient was seen and evaluated by Dr. Benito. Not quite back to her baseline. Continue the current treatment plan. We'll increase her activity as tolerated. Probable home in the a.m. We'll continue to follow. I, the cosigning physician, performed a history & physical examination of the patient. Lungs sounds with bilateral end expiratory wheeze, diminished. Maintaining good O2 saturations in the 90s on room air. I discussed the assessment and plan of care with my nurse practitioner, Va Loving. I attest to the above note as dictated by her.
[2019-08-22] MEDS: NICOTINE 14MG/24HR PATCH TRANSDERM SCH (15:29)
[2019-08-22] MEDS: PANTOPRAZOLE 40 MG/10 ML VIAL IVP SCH (15:29)
[2019-08-22 17:20] LABS: Glucose,Whole Blood 141 mg/dL (75-99)
[2019-08-22 20:00] LABS: Glucose,Whole Blood 153 mg/dL (75-99)
[2019-08-22] MEDS: DULoxetine HCL 60 MG CAPSULE.DR PO SCH (21:09)
[2019-08-23] MEDS: ZOLPIDEM 10 MG TAB PO PRN (01:28)
[2019-08-23] MEDS: HYDROcodone/APAP 10-325MG 1 EACH TAB PO PRN ×3 (01:28→20:38)
[2019-08-23 06:48] LABS: Glucose,Whole Blood 88 mg/dL (75-99)
[2019-08-23] MEDS: INSULIN ASPART (NovoLOG) 100 UNIT/ML VIAL SQ SCH ×4 (07:43→20:38)
[2019-08-23] MEDS: AMOXIC-POT CLAV 875-125MG 1 EACH TAB PO SCH ×2 (07:46→20:38)
[2019-08-23] MEDS: LORATADINE 10 MG TAB PO SCH (07:47)
[2019-08-23] MEDS: FUROSEMIDE 20 MG TAB PO SCH (07:47)
[2019-08-23] MEDS: PREGABALIN 75 MG CAP PO SCH ×3 (07:47→21:34)
[2019-08-23] MEDS: VERAPAMIL SR 180 MG TABLET.ER PO SCH (07:47)
[2019-08-23] MEDS: TOPIRAMATE 100 MG TAB PO SCH ×2 (07:47→20:39)
[2019-08-23] MEDS: NICOTINE 14MG/24HR PATCH TRANSDERM SCH (07:47)
[2019-08-23] MEDS: PANTOPRAZOLE 40 MG/10 ML VIAL IVP SCH (07:47)
[2019-08-23] MEDS: predniSONE 20 MG TAB PO SCH (07:47)
[2019-08-23] MEDS: FERROUS SULFATE 325 MG TAB PO SCH (07:47)
[2019-08-23] MEDS: ASPIRIN 81 MG PO SCH (07:47)
[2019-08-23] MEDS: FORMOTEROL FUMARATE 20 MCG/2 ML NEBU INHALATION SCH ×2 (08:40→20:16)
[2019-08-23] MEDS: IPRATROPIUM-ALBUTEROL 3 ML NEB INHALATION SCH ×4 (08:40→20:16)
[2019-08-23] MEDS: BUDESONIDE 1 MG/2 ML NEBU INHALATION SCH ×2 (08:40→20:16)
--- NOTE | 2019-08-23 09:51 | P.PN ---
Subjective Progress Note Date: 08/23/19 This is a 49-year-old white female patient of Dr. Li, with past medical history of moderately severe COPD with FEV1 of 61% of predicted, not normally oxygen dependent, who comes into the emergency department with a 2 day history of increasing shortness of breath, patient could hardly walk from her bedroom to her bathroom related to increasing dyspnea, was reporting some burning chest discomfort in her anterior chest and fluttering with shortness of breath, reported some increased swelling in lower extremities, but no fever or chills, no nausea vomiting or diarrhea. She had a recent sinus infection, with production of light green phlegm, and now she thinks he may have moved down to her chest, she is coughing, and bringing up some yellowish to dark green colored phlegm. In addition patient was hypoxemic at 85 on room air. Reports no hemoptysis, no chest wall tenderness. Chest x-ray showed chronic changes with mild interstitial prominence unchanged from prior exam, no focal infiltrates. Lab work was negative for leukocytosis, white blood cell count was 9.6, hemoglobin is 12.6, d-dimer was 0.68, venous blood gas was with pH of 7.37, pCO2 49, and bicarb of 28, electrolytes and renal profile were all within normal limits, troponin was negative 1, proBNP was 114, influenza screen was negative. She is also complaining of mild headache, patient does follow with Dr. Gregory and being worked up for MS. Patient is seen in the emergency department sitting on the edge of the stretcher, early on 5 L of oxygen with a pulse ox of 95%, she is afebrile, hemodynamically stable, fairly comfortable, other than complaining of a mild headache. No visual changes, no lightheadedness or dizziness. She has been started on empiric antibiotics in the form of oral Augmentin, IV steroids and breathing treatments, reports ongoing smoking, currently at a pack a day. The patient is seen today August 21 2019 in follow-up. She is improved today as compared to yesterday. Not quite back to her baseline. Still with complaints of dyspnea on exertion. She did ambulate in the bain on room air and stayed in the 90s. Blood culture shows no growth. She remains on DuoNeb inhalations, Pulmicort and Perforomist inhalations, IV Solu-Medrol, antibiotics in the form of Augmentin. NicoDerm patch is in place. The patient is seen today 08/22/2019 in follow-up on the regular medical floor. She is currently sitting up at the bedside. Awake and alert in no acute distress. Currently maintaining O2 saturation in the mid 90s on room air. Afebrile. Cultures reveal no growth. She remains on DuoNeb inhalations, Augmentin, oral prednisone. NicoDerm patch is in place. She's been up am bulating with assistance. She is still not feeling back to her baseline. On 08/23/2019 averaging the patient for a follow-up. She is gradually improving. No new complaints. I tapered her steroids yesterday. We'll looking for potential discharge on this patient within next 24 hours. No new complaints otherwise for now. Smoking cessation counseling was done. She is on Augmentin. She is also on oral prednisone. Objective - Vital Signs Vital signs: Vital Signs Temp 99.7 F H 08/23/19 05:00 Pulse 82 08/23/19 09:04 Resp 16 08/23/19 05:00 BP 154/77 08/23/19 05:00 Pulse Ox 97 08/23/19 08:41 Intake & Output 08/22/19 08/23/19 08/23/19 18:59 06:59 18:59 Other: Voiding Method Toilet Toilet # Voids 2 - Exam GENERAL EXAM: Alert, morbidly obese 48-year-old female patient comfortable in no apparent distress currently on room air HEAD: Normocephalic/atraumatic. EYES: Normal reaction of pupils, equal size. Conjunctiva pink, sclera white. NOSE: Clear with pink turbinates. THROAT: No erythema or exudates. NECK: No masses, no JVD, no thyroid enlargement, no adenopathy. CHEST: No chest wall deformity. Symmetrical expansion. LUNGS: Equal air entry with wheezing on forced exhale maneuver CVS: Regular rate and rhythm, normal S1 and S2, no gallops, no murmurs, no rubs ABDOMEN: Soft, nontender. No hepatosplenomegaly, normal bowel sounds, no guarding or rigidity. EXTREMITIES: No clubbing, no cyanosis, 2+ pulses and upper and lower extremities. There are mild changes of chronic venous stasis in lower extremities and mild pretibial edema MUSCULOSKELETAL: Muscle strength and tone normal. SPINE: No scoliosis or deformity SKIN: No rashes CENTRAL NERVOUS SYSTEM: No focal deficits, tone is normal in all 4 extremities. PSYCHIATRIC: Alert and oriented -3. Appropriate affect. Intact judgment and insight. - Labs CBC & Chem 7: 08/18/19 09:28 08/18/19 09:28 Labs: Abnormal Lab Results - Last 24 Hours (Table) 08/22/19 08/22/19 08/22/19 Range/Units 11:30 17:18 19:58 POC Glucose (mg/dL) 193 H 141 H 153 H (75-99) mg/dL Microbiology - Last 24 Hours (Table) 08/18/19 09:28 Blood Culture - Preliminary Blood No Growth after 96 hours Assessment and Plan Plan: #1. Acute hypoxic respiratory failure secondary to acute exacerbation of COPD, chest x-ray was reviewed and showed no evidence of acute pulmonary process. Gradually improving #2. Mildly elevated d-dimer, CT angios of the chest showed no definite central or lobar embolus. It did show mild groundglass nodularity in the left greater than right lung bases could be related to infectious or inflammatory etiology #3. Moderately severe COPD, with FEV1 of 61% of predicted, FVC of 60%, GOLD stage II, not oxygen dependent on a regular basis #4. Nicotine dependence, chronic and ongoing, currently at 1 pack daily #5. Morbid obesity #6. Anxiety/depression #7. Past medical history of CVA/TIA #8. Hypertension #9. Previous episode of pneumonia in December in the left lower lobe #10. Migraine headaches #11. Osteoarthritis #12. Sleep apnea #13. Memory impairment related to possibility of MS #14. Chronic pain Plan Ambulate this patient the hallway. Continue same treatment. Augmentin. Oral prednisone burst taper. Possible discharge in a.m. Evaluate for home O2 at a time of discharge.
--- NOTE | 2019-08-23 11:16 | P.PN ---
Subjective Patient is admitted for asthma exacerbation patient is clinically doing well will not wheezing at this time but per neurology is recommending one more day of monitoring. Although Complains of not feeling well patient is comparing of acid reflux symptoms because of ibuprofen and steroids patient was switched to oral steroids and patient was started on Protonix 08/23/2019 patient is still complaining of shortness of breath although objectively patient doesn't have any wheezing. Patient is saturating well even with amylase and although a large is according 1 more day of hospitalization. Constitutional: Denied any fatigue denied any fever. Cardio vascular: denied any chest pain, palpitations Gastrointestinal as mentioned above Pulmonary: Denied any shortness of breath cough Neurologic denied any new focal deficits All inpatient medications were reviewed and appropriate changes in these medications as dictated in the interval history and assessment and plan. Objective - Vital Signs Vital signs: Vital Signs Temp 99.7 F H 08/23/19 05:00 Pulse 82 08/23/19 09:04 Resp 16 08/23/19 05:00 BP 154/77 08/23/19 05:00 Pulse Ox 97 08/23/19 08:41 Intake & Output 08/22/19 08/23/19 08/23/19 18:59 06:59 18:59 Other: Voiding Method Toilet Toilet # Voids 2 - Exam PHYSICAL EXAMINATION: GENERAL: The patient is alert and oriented x3, not in any acute distress. Obese HEENT: Pupils are round and equally reacting to light. EOMI. No scleral icterus. No conjunctival pallor. Normocephalic, atraumatic. No pharyngeal erythema. No thyromegaly. CARDIOVASCULAR: S1 and S2 present. No murmurs, rubs, or gallops. PULMONARY: Chest is clear to auscultation, no wheezing or crackles. ABDOMEN: Soft, nontender, nondistended, normoactive bowel sounds. No palpable organomegaly. MUSCULOSKELETAL: No joint swelling or deformity. EXTREMITIES: No cyanosis, clubbing, or pedal edema. NEUROLOGICAL: Gross neurological examination did not reveal any focal deficits. SKIN: No rashes. - Labs CBC & Chem 7: 08/18/19 09:28 08/18/19 09:28 Labs: Abnormal Lab Results - Last 24 Hours (Table) 08/22/19 08/22/19 08/22/19 Range/Units 11:30 17:18 19:58 POC Glucose (mg/dL) 193 H 141 H 153 H (75-99) mg/dL Microbiology - Last 24 Hours (Table) 08/18/19 09:28 Blood Culture - Preliminary Blood No Growth after 96 hours Assessment and Plan Plan: hypoxic respiratory failure secondary to COPD exacerbation doing well regarding this perspective and probably can be discharged tomorrow if cleared by pulmonology -Continued nicotine dependence: Counseling was provided -Obesity -Depression and anxiety disorder -Hypertension -Migraine -Gastroesophageal reflux disease from ibuprofen and the steroids will start her on Protonix -Osteoarthritis -Sleep apnea -Memory impairment secondary to MS but patient doesn't have any MS exacerbation -Chronic pain
[2019-08-23 11:25] LABS: Glucose,Whole Blood 113 mg/dL (75-99)
[2019-08-23 16:55] LABS: Glucose,Whole Blood 95 mg/dL (75-99)
[2019-08-23 19:55] LABS: Glucose,Whole Blood 101 mg/dL (75-99)
[2019-08-23] MEDS: DULoxetine HCL 60 MG CAPSULE.DR PO SCH (20:38)
[2019-08-23] MEDS: IBUPROFEN 800 MG TAB PO PRN (22:10)
[2019-08-24] MEDS: ZOLPIDEM 10 MG TAB PO PRN (00:07)
[2019-08-24 07:01] LABS: Glucose,Whole Blood 83 mg/dL (75-99)
[2019-08-24] MEDS: INSULIN ASPART (NovoLOG) 100 UNIT/ML VIAL SQ SCH ×4 (07:21→21:45)
[2019-08-24] MEDS: FORMOTEROL FUMARATE 20 MCG/2 ML NEBU INHALATION SCH ×2 (07:48→20:13)
[2019-08-24] MEDS: IPRATROPIUM-ALBUTEROL 3 ML NEB INHALATION SCH ×4 (07:48→20:17)
[2019-08-24] MEDS: BUDESONIDE 1 MG/2 ML NEBU INHALATION SCH ×2 (07:48→20:13)
[2019-08-24] MEDS: PREGABALIN 75 MG CAP PO SCH ×3 (07:56→21:49)
[2019-08-24] MEDS: predniSONE 20 MG TAB PO SCH (07:57)
[2019-08-24] MEDS: VERAPAMIL SR 180 MG TABLET.ER PO SCH (07:57)
[2019-08-24] MEDS: ASPIRIN 81 MG PO SCH (07:57)
[2019-08-24] MEDS: FERROUS SULFATE 325 MG TAB PO SCH (07:57)
[2019-08-24] MEDS: PANTOPRAZOLE 40 MG TABLET PO SCH (07:57)
[2019-08-24] MEDS: AMOXIC-POT CLAV 875-125MG 1 EACH TAB PO SCH ×2 (07:57→21:50)
[2019-08-24] MEDS: LORATADINE 10 MG TAB PO SCH (07:58)
[2019-08-24] MEDS: TOPIRAMATE 100 MG TAB PO SCH ×2 (07:58→21:50)
[2019-08-24] MEDS: FUROSEMIDE 20 MG TAB PO SCH (07:58)
[2019-08-24] MEDS: NICOTINE 14MG/24HR PATCH TRANSDERM SCH (07:59)
[2019-08-24] MEDS: IBUPROFEN 800 MG TAB PO PRN ×2 (08:03→18:22)
[2019-08-24 11:27] LABS: Glucose,Whole Blood 127 mg/dL (75-99)
[2019-08-24] MEDS: BUTALB/APAP/CAFF 50-325-40MG TAB PO PRN (11:54)
--- NOTE | 2019-08-24 14:10 | P.PN ---
Subjective Progress Note Date: 08/24/19 Principal diagnosis: Acute hypoxic respiratory failure secondary to acute exacerbation of COPD This is a 49-year-old white female patient of Dr. Li, with past medical history of moderately severe COPD with FEV1 of 61% of predicted, not normally oxygen dependent, who comes into the emergency department with a 2 day history of increasing shortness of breath, patient could hardly walk from her bedroom to her bathroom related to increasing dyspnea, was reporting some burning chest discomfort in her anterior chest and fluttering with shortness of breath, reported some increased swelling in lower extremities, but no fever or chills, no nausea vomiting or diarrhea. She had a recent sinus infection, with production of light green phlegm, and now she thinks he may have moved down to her chest, she is coughing, and bringing up some yellowish to dark green colored phlegm. In addition patient was hypoxemic at 85 on room air. Reports no hemoptysis, no chest wall tenderness. Chest x-ray showed chronic changes with mild interstitial prominence unchanged from prior exam, no focal infiltrates. Lab work was negative for leukocytosis, white blood cell count was 9.6, hemog lobin is 12.6, d-dimer was 0.68, venous blood gas was with pH of 7.37, pCO2 49, and bicarb of 28, electrolytes and renal profile were all within normal limits, troponin was negative 1, proBNP was 114, influenza screen was negative. She is also complaining of mild headache, patient does follow with Dr. Gregory and being worked up for MS. Patient is seen in the emergency department sitting on the edge of the stretcher, early on 5 L of oxygen with a pulse ox of 95%, she is afebrile, hemodynamically stable, fairly comfortable, other than complaining of a mild headache. No visual changes, no lightheadedness or dizziness. She has been started on empiric antibiotics in the form of oral Augmentin, IV steroids and breathing treatments, reports ongoing smoking, currently at a pack a day. The patient is seen today August 21 2019 in follow-up. She is improved today as compared to yesterday. Not quite back to her baseline. Still with complaints of dyspnea on exertion. She did ambulate in the bain on room air and stayed in the 90s. Blood culture shows no growth. She remains on DuoNeb inhalations, Pulmicort and Perforomist inhalations, IV Solu-Medrol, antibiotics in the form of Augmentin. NicoDerm patch is in place. The patient is seen today 08/22/2019 in follow-up on the regular medical floor. She is currently sitting up at the bedside. Awake and alert in no acute dist ress. Currently maintaining O2 saturation in the mid 90s on room air. Afebrile. Cultures reveal no growth. She remains on DuoNeb inhalations, Augmentin, oral prednisone. NicoDerm patch is in place. She's been up ambulating with assistance. She is still not feeling back to her baseline. On 08/23/2019 averaging the patient for a follow-up. She is gradually improving. No new complaints. I tapered her steroids yesterday. We'll looking for potential discharge on this patient within next 24 hours. No new complaints otherwise for now. Smoking cessation counseling was done. She is on Augmentin. She is also on oral prednisone. On 08/24/2019 patient seen in follow-up on medical surgical floor. She is currently on room air with a pulse ox of 91%, occasional episodes of coughing, no significant congestion, she is afebrile, she's been up ambulating, tolerating activity well, overall she states she is breathing and feeling better, there have been no acute events overnight, no new labs, no new chest x-rays, no significant wheezing. Patient has been treated with a combination of steroids, nebulized bronchodilators, and oral antibiotics, responded well to treatment, and she is requesting to go home today. Objective - Vital Signs Vital signs: Vital Signs Temp 98 F 08/24/19 11:58 Pulse 78 08/24/19 11:58 Resp 16 08/24/19 11:58 BP 131/66 08/24/19 11:58 Pulse Ox 91 L 08/24/19 11:58 Intake & Output 08/23/19 08/24/19 08/24/19 18:59 06:59 18:59 Intake Total 600 590 Balance 600 590 Intake: Oral 600 590 Other: Voiding Method Toilet Toilet # Voids 2 1 - Exam GENERAL EXAM: Alert, pleasant, morbidly obese 48-year-old white female comfortable in no apparent distress currently on room air, with a pulse ox of 91% Patient does become dyspneic with ambulation, has a congested cough HEAD: Normocephalic/atraumatic. EYES: Normal reaction of pupils, equal size. Conjunctiva pink, sclera white. NOSE: Clear with pink turbinates. THROAT: No erythema or exudates. NECK: No masses, no JVD, no thyroid enlargement, no adenopathy. CHEST: No chest wall deformity. Symmetrical expansion. LUNGS: Equal air entry with bibasilar crackles, no wheezing, occasional cough CVS: Regular rate and rhythm, normal S1 and S2, no gallops, no murmurs, no rubs ABDOMEN: Soft, nontender. No hepatosplenomegaly, normal bowel sounds, no guarding or rigidity. EXTREMITIES: No clubbing, no cyanosis, 2+ pulses and upper and lower extremities. There are mild changes of chronic venous stasis in lower extremities and mild pretibial edema MUSCULOSKELETAL: Muscle strength and tone normal. SPINE: No scoliosis or deformity SKIN: No rashes CENTRAL NERVOUS SYSTEM: Alert and oriented -3. No focal deficits, tone is normal in all 4 extremities. PSYCHIATRIC: Alert and oriented -3. Appropriate affect. Intact judgment and insight. - Labs CBC & Chem 7: 08/18/19 09:28 08/18/19 09:28 Labs: Abnormal Lab Results - Last 24 Hours (Table) 08/23/19 08/24/19 Range/Units 19:54 11:20 POC Glucose (mg/dL) 101 H 127 H (75-99) mg/dL Microbiology - Last 24 Hours (Table) 08/18/19 09:28 Blood Culture - Final Blood No Growth after 144 hours Assessment and Plan Plan: Assessment: #1. Acute hypoxic respiratory failure secondary to acute exacerbation of COPD, chest x-ray was reviewed and showed no evidence of acute pulmonary process. #2. Mildly elevated d-dimer, CT angios of the chest showed no definite central or lobar embolus. It did show mild groundglass nodularity in the left greater than right lung bases could be related to infectious or inflammatory etiology #3. Moderately severe COPD, with FEV1 of 61% of predicted, FVC of 60%, GOLD stage II, not oxygen dependent on a regular basis #4. Nicotine dependence, chronic and ongoing, currently at 1 pack daily #5. Morbid obesity #6. Anxiety/depression #7. Past medical history of CVA/TIA #8. Hypertension #9. Previous episode of pneumonia in December in the left lower lobe #10. Migraine headaches #11. Osteoarthritis #12. Sleep apnea #13. Memory impairment related to possibility of MS #14. Chronic pain Plan: Patient is improving, she is currently on room air, she has been tolerating ambulation, his no cough, no significant congestion, events overnight, she is requesting to go home today, from pulmonary perspective patient is stable for discharge home today, smoking abstinence has been reinforced. Patient can go home on prednisone taper, she can finish outpatient course of oral Augmentin, DuoNeb nebulized treatments, and Symbicort, she will need follow-up with Dr. Benito in the office in 1 to 2 weeks I performed a history & physical examination of the patient and discussed their management with my nurse practitioner, Marilee Monte. I reviewed the nurse practitioner's note and agree with the documented findings and plan of care. Lung sounds are positive for diminished breath sounds, with bibasilar crackles. The findings and the impression was discussed with the patient. I attest to the documentation by the nurse practitioner. Time with Patient: Less than 30
[2019-08-24] MEDS: HYDROcodone/APAP 10-325MG 1 EACH TAB PO PRN (15:03)
[2019-08-24 17:12] LABS: Glucose,Whole Blood 111 mg/dL (75-99)
[2019-08-24 20:52] VITALS: RESP 18
--- NOTE | 2019-08-24 21:26 | P.PN ---
Subjective Progress Note Date: 08/24/19 this is pleasant 49-year-old who was admitted for acute shortness of breath related to acute exacerbation of asthma. Patient is doing slightly better today however she is still on high dose of IV steroids.she states overall she does feel better and has improved and she has less tearful today about her medical condition. 08/24/2019 .Patient seenll on IV steroids. Doing better since weekend. She denies any particular complaints just some stuffy nose from nasal oxygenshe remains onby mouth antibiotics as well. She is cleared medically for discharge awaiting pulmonaryevaluation today and weaning oo by mouth and discharge soon she has bn ambulating in the bain without much difficulty. Objective - Vital Signs Vital signs: Vital Signs Temp 97.7 F 08/24/19 20:51 Pulse 82 08/24/19 20:51 Resp 18 08/24/19 20:51 BP 127/81 08/24/19 20:51 Pulse Ox 96 08/24/19 20:51 Intake & Output 08/24/19 08/24/19 08/25/19 06:59 18:59 06:59 Intake Total 590 Balance 590 Intake: Oral 590 Other: Voiding Method Toilet # Voids 1 2 1 - Exam GENERAL: This is a -49 -year-old alert and oriented no is present. year-old in no apparent distress at the time of examination. Pleasant and cooperative. HEENT: Head is atraumatic, normocephalic. Pupils are equal, round, and reactive to light. Sclerae anicteric. Conjunctivae are clear. Mucus membranes of the mouth are moist. Neck is supple. RESPIRATORY: Clear to auscultation. No wheezes, rales, or rhonchi. No use of accessory muscles. No chest wall tenderness is noted on palpation or with deep breathing. CARDIOVASCULAR: Regular rate and rhythm. S1 and S2 noted. No systolic or di astolic murmur auscultated. No JVD noted. No S3 or S4 noted. GASTROINTESTINAL: No distention noted. Abdomen soft and round. Normal active bowel sounds auscultated x 4 quadrants. No pain or tenderness noted upon palpation. INTEGUMENTARY: No cyanosis. No jaundice. No rashes noted. No cellulitis noted. EXTREMITIES: 2+ peripheral pulses. No evidence of peripheral edema. No calf tenderness noted. NEUROLOGIC: Cranial nerves II-XII intact. PSYCHIATRIC: Awake, alert, and oriented X 3. Appropriate affect. Intact judgement and insight. - Labs CBC & Chem 7: 08/18/19 09:28 08/18/19 09:28 Labs: Abnormal Lab Results - Last 24 Hours (Table) 08/24/19 08/24/19 Range/Units 11:20 17:06 POC Glucose (mg/dL) 127 H 111 H (75-99) mg/dL Microbiology - Last 24 Hours (Table) 08/18/19 09:28 Blood Culture - Final Blood No Growth after 144 hours Assessment and Plan (1) Acute bronchitis Current Visit: Yes Status: Acute Code(s): J20.9 - ACUTE BRONCHITIS, UNSPECIFIED SNOMED Code(s): 23779247 (2) Acute respiratory distress syndrome in adult Current Visit: Yes Status: Acute Code(s): J80 - ACUTE RESPIRATORY DISTRESS SYNDROME SNOMED Code(s): 57326577 (3) Asthma with acute exacerbation Current Visit: Yes Status: Acute Code(s): J45.901 - UNSPECIFIED ASTHMA WITH (ACUTE) EXACERBATION SNOMED Code(s): 950789301 (4) Hypoxemia Current Visit: Yes Status: Acute Code(s): R09.02 - HYPOXEMIA SNOMED Code(s): 270338520 (5) Smoking Current Visit: Yes Status: Acute Code(s): F17.200 - NICOTINE DEPENDENCE, UNSPECIFIED, UNCOMPLICATED SNOMED Code(s): 56712312 (6) Morbid obesity Current Visit: Yes Status: Acute Code(s): E66.01 - MORBID (SEVERE) OBESITY DUE TO EXCESS CALORIES SNOMED Code(s): 890900008 Plan: patient will continue on current treatment she is cleared medically to be discharged hopefully weaning steroids continue ambulatioin the bain ways. Continue to follow patient during her hospital course and get ready to discharge in the next 24 hours
[2019-08-24] MEDS ORDERED: FLUTICASONE 50MCG/SPRAY NASAL 16GM EA NOSTRIL SCH (21:30)
[2019-08-24] MEDS: CALCIUM CARBONATE 500 MG CHEWABLE PO PRN (21:49)
[2019-08-24] MEDS: DULoxetine HCL 60 MG CAPSULE.DR PO SCH (21:50)
[2019-08-25] MEDS: HYDROcodone/APAP 10-325MG 1 EACH TAB PO PRN ×2 (00:09→08:49)
[2019-08-25] MEDS: ZOLPIDEM 10 MG TAB PO PRN (00:09)
[2019-08-25 05:13] VITALS: BP 127/62; TEMP 97.8
[2019-08-25] MEDS: IPRATROPIUM-ALBUTEROL 3 ML NEB INHALATION SCH (07:04)
[2019-08-25] MEDS: FORMOTEROL FUMARATE 20 MCG/2 ML NEBU INHALATION SCH (07:04)
[2019-08-25] MEDS: BUDESONIDE 1 MG/2 ML NEBU INHALATION SCH (07:04)
[2019-08-25 07:43] VITALS: PULSE 84
[2019-08-25] MEDS: ASPIRIN 81 MG PO SCH (07:59)
[2019-08-25] MEDS: FUROSEMIDE 20 MG TAB PO SCH (07:59)
[2019-08-25] MEDS: FERROUS SULFATE 325 MG TAB PO SCH (07:59)
[2019-08-25] MEDS: AMOXIC-POT CLAV 875-125MG 1 EACH TAB PO SCH (07:59)
[2019-08-25] MEDS: VERAPAMIL SR 180 MG TABLET.ER PO SCH (08:00)
[2019-08-25] MEDS: PREGABALIN 75 MG CAP PO SCH (08:00)
[2019-08-25] MEDS: PANTOPRAZOLE 40 MG TABLET PO SCH (08:00)
[2019-08-25] MEDS: predniSONE 20 MG TAB PO SCH (08:00)
[2019-08-25] MEDS: LORATADINE 10 MG TAB PO SCH (08:00)
[2019-08-25] MEDS: TOPIRAMATE 100 MG TAB PO SCH (08:01)
[2019-08-25] MEDS: IBUPROFEN 800 MG TAB PO PRN (08:01)
[2019-08-25] MEDS: NICOTINE 14MG/24HR PATCH TRANSDERM SCH (08:07)
[2019-08-25] MEDS: CALCIUM CARBONATE 500 MG CHEWABLE PO PRN (08:50)
--- NOTE | 2019-08-26 23:41 | P.DS ---
Providers Date of admission: 08/18/19 13:57 Expected date of discharge: 08/25/19 Attending physician: Erickson Li Consults: 08/18/19 13:57 Consult Physician Routine Consulting Provider: Ivis Benito Consult Reason/Comments: Asthma exacerbation, bronchitis Do you want consulting provider notified?: Yes Primary care physician: Erickson Li - Discharge Diagnosis(es) (1) Acute bronchitis Status: Acute (2) Acute respiratory distress syndrome in adult Status: Acute (3) Asthma with acute exacerbation Status: Acute (4) Hypoxemia Status: Acute (5) Smoking Status: Acute (6) Morbid obesity Status: Acute Hospital Course: 49-year-old white female morbidly obese who was admitted to the hospital with exacerbation of COPD/asthma. She really wants to quit smoking and she'll be discharged with a prescription for Chantix that will be E prescribed to my office.she was placed on IV steroids under direction of pulmonaryconsultation and was doingbetter. She will be discharged today on prednisone tapered dose and all of her medications as well as the Chantix starter kit. Patient Condition at Discharge: Fair Plan - Discharge Summary Discharge Rx Participant: No New Discharge Prescriptions: New Amoxic-Pot Clav 875-125Mg [Augmentin 875-125] 1 tab PO BID 3 Days #6 tab Ipratropium-Albuterol Nebulize [Duoneb 0.5 mg-3 mg/3 ml Soln] 3 ml INHALATION QID 30 Days #5 box predniSONE 10 mg PO DAILY 12 Days #30 tab Budesonide-Formot 160-4.5 Mcg [Symbicort 160-4.5 Mcg Inhaler] 2 puff INHALATION BID 30 Days #1 inhaler No Action Topiramate [Topamax] 100 mg PO BID Ferrous Sulfate [Iron (65 MG Elemental)] 325 mg PO DAILY Ibuprofen 800 mg PO BID PRN PRN Reason: Pain DULoxetine HCL [Cymbalta] 60 mg PO HS Butalb/APAP/Caff 50-325-40Mg [Fioricet 50-325-40] 1 tab PO Q8HR PRN PRN Reason: Migraine Headache Pregabalin [Lyrica] 150 mg PO TID Verapamil Sr [Isoptin Sr] 180 mg PO DAILY Loratadine [Claritin] 10 mg PO DAILY Aspirin EC [Ecotrin Low Dose] 81 mg PO DAILY Albuterol Sulfate [Proair Hfa] 1 - 2 puff INHALATION RT-Q6H PRN PRN Reason: Shortness Of Breath HYDROcodone/APAP 10-325MG [[place] 10-325] 1 tab PO TID PRN PRN Reason: PAin Ipratropium-Albuterol Nebulize [Duoneb 0.5 mg-3 mg/3 ml Soln] 3 ml INHALATION RT-QID PRN PRN Reason: Shortness Of Breath Furosemide [Lasix] 20 mg PO DAILY Discharge Medication List Butalb/APAP/Caff 50-325-40Mg [Fioricet 50-325-40] 1 tab PO Q8HR PRN 05/22/17 [History] DULoxetine HCL [Cymbalta] 60 mg PO HS 05/22/17 [History] Ferrous Sulfate [Iron (65 MG Elemental)] 325 mg PO DAILY 05/22/17 [History] Ibuprofen 800 mg PO BID PRN 05/22/17 [History] Topiramate [Topamax] 100 mg PO BID 05/22/17 [History] Pregabalin [Lyrica] 150 mg PO TID 01/12/18 [History] Aspirin EC [Ecotrin Low Dose] 81 mg PO DAILY 06/06/18 [History] Loratadine [Claritin] 10 mg PO DAILY 06/06/18 [History] Verapamil Sr [Isoptin Sr] 180 mg PO DAILY 06/06/18 [History] Albuterol Sulfate [Proair Hfa] 1 - 2 puff INHALATION RT-Q6H PRN 08/18/19 [History] Furosemide [Lasix] 20 mg PO DAILY 08/18/19 [History] HYDROcodone/APAP 10-325MG [[place] 10-325] 1 tab PO TID PRN 08/18/19 [History] Ipratropium-Albuterol Nebulize [Duoneb 0.5 mg-3 mg/3 ml Soln] 3 ml INHALATION RT-QID PRN 08/18/19 [History] Amoxic-Pot Clav 875-125Mg [Augmentin 875-125] 1 tab PO BID 3 Days #6 tab 08/24/19 [Rx] Budesonide-Formot 160-4.5 Mcg [Symbicort 160-4.5 Mcg Inhaler] 2 puff INHALATION BID 30 Days #1 inhaler 08/24/19 [Rx] Ipratropium-Albuterol Nebulize [Duoneb 0.5 mg-3 mg/3 ml Soln] 3 ml INHALATION QID 30 Days #5 box 08/24/19 [Rx] predniSONE 10 mg PO DAILY 12 Days #30 tab 08/24/19 [Rx] Follow up Appointment(s)/Referral(s): Erickson Li DO [Primary Care Provider] - 09/01/19 10:20 am Ivis Benito MD [STAFF PHYSICIAN] - 09/15/19 2:45 pm Patient Instructions/Handouts: Prednisone (By mouth), Amoxicillin/Clavulanate Potassium (By mouth), Ipratropium/Albuterol (By breathing), [place] esonide/Formoterol (By breathing), Asthma (DC), Acute Bronchitis (ED), Hypoxemia (DC) Discharge Disposition: HOME SELF-CARE
== END 2019-08-25 10:10 | disposition home or self-care (01) | DRG 190 ==
LOC: EC 08:34 → 3NMEDONC 13:57
PROVIDERS: ADMIT Family Medicine; ATTEND Family Medicine
DX: J44.0 Chronic obstructive pulmonary disease with (acute) lower respiratory infection (principal); J96.01 Acute respiratory failure with hypoxia; J45.901 Unspecified asthma with (acute) exacerbation; G90.50 Complex regional pain syndrome I, unspecified; Z68.43 Body mass index [BMI] 50.0-59.9, adult; J44.1 Chronic obstructive pulmonary disease with (acute) exacerbation; E66.01 Morbid (severe) obesity due to excess calories; J20.9 Acute bronchitis, unspecified; G62.9 Polyneuropathy, unspecified; G43.909 Migraine, unspecified, not intractable, without status migrainosus; F32.9 Major depressive disorder, single episode, unspecified; F41.9 Anxiety disorder, unspecified; H40.059 Ocular hypertension, unspecified eye; I10 Essential (primary) hypertension; I87.8 Other specified disorders of veins; M19.90 Unspecified osteoarthritis, unspecified site; G47.30 Sleep apnea, unspecified; K21.9 Gastro-esophageal reflux disease without esophagitis; G31.84 Mild cognitive impairment of uncertain or unknown etiology; G89.29 Other chronic pain; M54.9 Dorsalgia, unspecified; F17.210 Nicotine dependence, cigarettes, uncomplicated; Z71.6 Tobacco abuse counseling; Z79.82 Long term (current) use of aspirin; Z79.899 Other long term (current) drug therapy; Z99.89 Dependence on other enabling machines and devices; Z90.49 Acquired absence of other specified parts of digestive tract; Z98.890 Other specified postprocedural states; Z98.891 History of uterine scar from previous surgery; Z86.73 Personal history of transient ischemic attack (TIA), and cerebral infarction without residual deficits; Z87.01 Personal history of pneumonia (recurrent); Z88.5 Allergy status to narcotic agent; Z88.2 Allergy status to sulfonamides; Z91.011 Allergy to milk products; Z82.49 Family history of ischemic heart disease and other diseases of the circulatory system; Z83.3 Family history of diabetes mellitus; Z83.49 Family history of other endocrine, nutritional and metabolic diseases
CPT/HCPCS: 36415; 71046; 71275; 80053; 82550; 82803; 83735; 83880; 84484; 85025; 85379; 85610; 85730; 87040; 87502; 93005; 93970; 94640; 94760; 96361; 96365; 96375; 99291; 99406

== ENCOUNTER → 2020-01-18 | Outpatient (CLI) | payer OTHER ==
--- NOTE | 2020-01-19 09:00 | ECHOF ---
Referral Reason:I50.32 Diastolic dysfunction MEASUREMENTS -------- HEIGHT: 160.0 cm WEIGHT: 145.1 kg BP: RVIDd: 3.5 cm (< 3.3) IVSd: 1.4 cm (0.6 - 1.1) LVIDd: 2.8 cm (3.9 - 5.3) LVPWd: 1.6 cm (0.6 - 1.1) IVSs: 1.9 cm LVIDs: 1.7 cm LVPWs: 2.1 cm LAESV Index (A-L): 16.89 ml/m Ao Diam: 2.5 cm (2.0 - 3.7) AV Cusp: 1.5 cm (1.5 - 2.6) LA Diam: 3.7 cm (2.7 - 3.8) MV EXCURSION: 18.395 mm (> 18.000) MV EF SLOPE: 81 mm/s (70 - 150) EPSS: 0.4 cm MV E Dariel: 0.92 m/s MV DecT: 178 ms MV A Dariel: 0.98 m/s MV E/A Ratio: 0.94 AV maxP.62 mmHg AV meanP.10 mmHg RAP: 5.00 mmHg RVSP: 37.94 mmHg FINDINGS -------- Sinus rhythm. This was a technically difficult study with suboptimal views. The left ventricular size is normal. There is moderate concentric left ventricular hypertrophy. O verall left ventricular systolic function is normal with, an EF between 55 - 60 %. Normal LAP. Grad e 1 Diastolic Dysfunction. The right ventricle is mildly enlarged. The left atrial size is normal. Normal LA size by volume 22+/-6 ml/m2. The right atrial size is normal. The aortic valve was not well visualized. Peak/mean gradient across the Aortic Valve is 16.62mmHg / 9.10mmHg. The mitral valve is normal. Mild mitral regurgitation is present. The tricuspid valve appears structurally normal. Mild tricuspid regurgitation present. There is m ild pulmonary hypertension. The right ventricular systolic pressure, as measured by Doppler, is 37. 94mmHg. The pulmonic valve was not well visualized. The aortic root size is normal. Normal inferior vena cava with normal inspiratory collapse consistent with estimated right atrial pre ssure of 5 mmHg. There is no pericardial effusion. CONCLUSIONS -------- 1. Sinus rhythm. 2. This was a technically difficult study with suboptimal views. 3. The left ventricular size is normal. 4. There is moderate concentric left ventricular hypertrophy. 5. Overall left ventricular systolic function is normal with, an EF between 55 - 60 %. 6. Normal LAP. Grade 1 Diastolic Dysfunction. 7. The right ventricle is mildly enlarged. 8. The left atrial size is normal. 9. Normal LA size by volume 22+/-6 ml/m2. 10. The right atrial size is normal. 11. The aortic valve was not well visualized. 12. Peak/mean gradient across the Aortic Valve is 16.62mmHg / 9.10mmHg. 13. The mitral valve is normal. 14. Mild mitral regurgitation is present. 15. The tricuspid valve appears structurally normal. 16. Mild tricuspid regurgitation present. 17. There is mild pulmonary hypertension. 18. The right ventricular systolic pressure, as measured by Doppler, is 37.94mmHg. 19. The pulmonic valve was not well visualized. 20. The aortic root size is normal. 21. Normal inferior vena cava with normal inspiratory collapse consistent with estimated right atrial pressure of 5 mmHg. 22. There is no pericardial effusion. GLUE MAKER: Es Zhu RD
== END | disposition home or self-care (01) ==
LOC: RADECHMAIN 12:19
PROVIDERS: ATTEND Family Medicine
DX: I08.1 Rheumatic disorders of both mitral and tricuspid valves (principal); I27.20 Pulmonary hypertension, unspecified; I50.32 Chronic diastolic (congestive) heart failure; Z88.2 Allergy status to sulfonamides
CPT/HCPCS: 93306

== ENCOUNTER → 2020-01-26 | Outpatient (CLI) | payer OTHER ==
[2020-01-26 12:22] LABS: HCT 46.2 % (34.0-46.0); HGB 14.1 gm/dL (11.4-16.0); Hypochromasia Moderate; MCH 26.2 pg (25.0-35.0); MCHC 30.4 g/dL (31.0-37.0); MCV 86.3 fL (80.0-100.0); Mean Platelet Volume 9.6; Platelet Count 332 k/uL (150-450); RBC 5.35 m/uL (3.80-5.40); RDW 15.8 % (11.5-15.5); WBC 10.1 k/uL (3.8-10.6)
[2020-01-26 16:51] LABS: Prolactin 14.8 ng/mL (2.8-29.2)
[2020-01-26 16:52] LABS: T4, Free (Free Thyroxine) 1.1 ng/dL (0.80-1.80)
== END | disposition home or self-care (01) ==
LOC: LABWHC1 11:10
PROVIDERS: ATTEND Internal Medicine Endocrinology, Diabetes & Metabolism
DX: R53.83 Other fatigue (principal); H05.20 Unspecified exophthalmos
CPT/HCPCS: 36415; 82533; 82607; 84146; 84439; 84443; 84445; 84481; 85027; 86376

== ENCOUNTER → 2020-02-11 | Outpatient (CLI) | payer OTHER ==
--- NOTE | 2020-02-11 13:11 | US ---
EXAMINATION TYPE: US thyroid st tissue head/neck DATE OF EXAM: 02/11/2020 COMPARISON: CTA chest August 18, 2019. CLINICAL HISTORY: H05.20 Exophthalmos. GLAND SIZE: Right Lobe: 4.1 x 1.4 x 2.3 cm Overall Parenchyma: heterogenous Left Lobe: 4.1 x 1.9 x 1.8 cm Overall Parenchyma: heterogeneous Isthmus Thickness: 0.6 cm NODULES RIGHT: # of nodules measured on right: 0 LEFT: # of nodules measured on left: 0 ISTHMUS: # of nodules measured in the isthmus: 0 Bilateral neck scanned, no evidence of lymphadenopathy. Slightly heterogeneous normal-size thyroid without discrete nodule. IMPRESSION: As above. No suspicious thyroid enlargement noted.
== END | disposition home or self-care (01) ==
LOC: RADUSWWP 12:20
PROVIDERS: ATTEND Internal Medicine Endocrinology, Diabetes & Metabolism
DX: H05.20 Unspecified exophthalmos (principal)
CPT/HCPCS: 76536

== ENCOUNTER 2020-04-27 16:11 | Inpatient (IN) | payer OTHER ==
[2020-04-27] MEDS ORDERED: SODIUM CHLORIDE 0.9% 1,000 ML IV STA ×2 (16:28)
[2020-04-27] MEDS ORDERED: IPRATROPIUM-ALBUTEROL 3 ML NEB INHALATION STA (16:28)
[2020-04-27] MEDS ORDERED: methylPREDNISolone SOD SUCCI 125 MG/2 ML VIAL IV STA (16:28)
[2020-04-27 16:43] LABS: Basophils # (A) 0.1 k/uL (0-0.2); Basophils % (A) 1 %; Eosinophils # (A) 0.2 k/uL (0-0.7); Eosinophils % (A) 2 %; HCT 47.3 % (34.0-46.0); HGB 14.5 gm/dL (11.4-16.0); Hypochromasia Marked; Lymphocytes # (A) 2.1 k/uL (1.0-4.8); Lymphocytes % (A) 20 %; MCH 28.2 pg (25.0-35.0); MCHC 30.7 g/dL (31.0-37.0); MCV 92.1 fL (80.0-100.0); Mean Platelet Volume 9.4; Monocytes # (A) 0.5 k/uL (0-1.0); Monocytes % (A) 5 %; Neutrophils # (A) 7.2 k/uL (1.3-7.7); Neutrophils % (A) 71 %; Platelet Count 282 k/uL (150-450); RBC 5.13 m/uL (3.80-5.40); RDW 15.9 % (11.5-15.5); WBC 10.2 k/uL (3.8-10.6)
[2020-04-27 16:53] LABS: ALT 40 U/L (4-34); AST 35 U/L (14-36); African American GFR (CKD) >90 (>60 ml/min/1.73 sqM); Albumin 4.1 g/dL (3.5-5.0); Alkaline Phosphatase 95 U/L (38-126); Anion Gap 5 mmol/L; Blood Urea Nitrogen 15 mg/dL (7-17); Calcium 9.9 mg/dL (8.4-10.2); Carbon Dioxide 26 mmol/L (22-30); Chloride 106 mmol/L (98-107); Glucose 98 mg/dL (74-99); Magnesium 2.2 mg/dL (1.6-2.3); Non-African American GFR(CKD) >90 (>60 ml/min/1.73 sqM); Potassium 4.6 mmol/L (3.5-5.1); Sodium 137 mmol/L (137-145); Total Bilirubin 0.3 mg/dL (0.2-1.3); Total Protein 7.1 g/dL (6.3-8.2)
--- NOTE | 2020-04-27 16:54 | XR ---
EXAMINATION TYPE: XR chest 2V DATE OF EXAM: 04/27/2020 COMPARISON: 08/18/2019 HISTORY: 50-year-old female difficulty breathing, shortness of breath TECHNIQUE: PA and lateral views FINDINGS: Heart mildly enlarged. Diffuse interstitial density. No consolidation or pleural effusion. IMPRESSION: Cardiomegaly and diffuse interstitial density. Correlate for CHF and mild pulmonary vascular congesti on. No baudilio pulmonary edema.
[2020-04-27 17:01] LABS: INR 0.9 (<1.2); Partial Thromboplastin Time 22.5 sec (22.0-30.0); Prothrombin Time 9.6 sec (9.0-12.0)
[2020-04-27 17:07] LABS: D-Dimer 0.64 mg/L FEU (<0.60)
--- NOTE | 2020-04-27 17:10 | ED ---
General Adult HPI - General Source: patient, RN notes reviewed, old records reviewed Mode of arrival: wheelchair Limitations: no limitations <Marianne Dougherty - Last Filed: 04/27/20 18:59> <Rufina Porter - Last Filed: 05/02/20 04:13> - General Chief complaint: Shortness of Breath Stated complaint: SOB Time Seen by Provider: 04/27/20 16:15 - History of Present Illness Initial comments: Patient's 42-year-old female presents emergency department today for evaluation for shortness of breath for the past 3 days.. Patient reports that she has occasional smoker. Patient states that she has been hospitalized for similar episode at [facility] last month. She states that she try to use her breathing treatments prior to arrival however was unable to do that successfully is her breathing treatment as she has a hole in her tubing. Patient states that she has some substernal chest discomfort at this time with breathing. Patient states that she does see Dr. Benito for pulmonology. Patient states that she has no nausea or vomiting at this time. (Marianne Dougherty) - Related Data Home Medications Medication Instructions Recorded Confirmed Butalb/APAP/Caff 50-325-40Mg 1 tab PO Q8HR PRN 05/22/17 04/27/20 [Fioricet 50-325-40] DULoxetine HCL [Cymbalta] 60 mg PO HS 05/22/17 04/27/20 Ferrous Sulfate [Iron (65 MG 325 mg PO BID 05/22/17 04/27/20 Elemental)] Ibuprofen 800 mg PO BID PRN 05/22/17 04/27/20 Topiramate [Topamax] 100 mg PO BID 05/22/17 04/27/20 Pregabalin [Lyrica] 150 mg PO TID 01/12/18 04/27/20 Aspirin EC [Ecotrin Low Dose] 81 mg PO DAILY 06/06/18 04/27/20 Loratadine [Claritin] 10 mg PO DAILY 06/06/18 04/27/20 Albuterol Sulfate [Proair Hfa] 1 - 2 puff INHALATION RT-Q6H PRN 08/18/19 04/27/20 Furosemide [Lasix] 20 mg PO DAILY 08/18/19 04/27/20 HYDROcodone/APAP 10-325MG [[place] 1 tab PO TID PRN 08/18/19 04/27/20 10-325] ARIPiprazole [Abilify] 5 mg PO HS 04/27/20 04/27/20 Atorvastatin [Lipitor] 20 mg PO HS 04/27/20 04/27/20 Erenumab-Aooe [Aimovig 140 mg PO Q30D 04/27/20 04/27/20 Autoinjector] Fluticasone Nasal [place] [Flonase 2 spray EA NOSTRIL HS 04/27/20 04/27/20 Nasal [place]] Ipratropium-Albuterol Nebulize 3 ml INHALATION RT-QID 04/27/20 04/27/20 [Duoneb 0.5 mg-3 mg/3 ml Soln] Latanoprost/Pf [Latanoprost 0.005% 1 drop BOTH EYES HS 04/27/20 04/27/20 Eye Drop] Levothyroxine Sodium [Synthroid] 25 mcg PO DAILY 04/27/20 04/27/20 Metoprolol Tartrate [Lopressor] 12.5 mg PO BID 04/27/20 04/27/20 Omeprazole 20 mg PO QAM 04/27/20 04/27/20 Rizatriptan Benzoate [Rizatriptan] 10 mg PO DIRECTED PRN 04/27/20 04/27/20 Venlafaxine HCl ER [Effexor XR] 37.5 mg PO DAILY 04/27/20 04/27/20 Verapamil HCl [Verapamil ER] 120 mg PO DAILY 04/27/20 04/27/20 Zolpidem [Ambien] 10 mg PO HS 04/27/20 04/27/20 amLODIPine BESYLATE/BENAZEPRIL 1 tab PO DAILY 04/27/20 04/27/20 [amLODIPine BESYLATE/BENAZEPRIL 5-10 MG] Previous Rx's Medication Instructions Recorded predniSONE 10 mg PO DIRECTED #30 tab 04/30/20 Allergies Allergy/AdvReac Type Severity Reaction Status Date / Time morphine Allergy Itching Verified 04/27/20 22:01 Sulfa (Sulfonamide Allergy RAPID Verified 04/27/20 22:01 Antibiotics) HEART RATE AND HIVES Review of Systems ROS Other: All systems not noted in ROS Statement are negative. <Marianne Dougherty - Last Filed: 04/27/20 18:59> ROS Other: All systems not noted in ROS Statement are negative. <Rufina Porter - Last Filed: 05/02/20 04:13> ROS Statement: Those systems with pertinent positive or pertinent negative responses have been documented in the HPI. Past Medical History Past Medical History: COPD, Hypertension, Osteoarthritis (OA), Sleep Apnea/CPAP/BIPAP Additional Past Medical History / Comment(s): RSD dx 2013 lesions on brain,"memory issues" possible MS no definitive dx as of yet, Spinal puncture, obesity, peripheral neuropathy diogenes feet/legs arms, migraines, murmur, occular hypertension History of Any Multi-Drug Resistant Organisms: None Reported Past Surgical History: Appendectomy, Section, Cholecystectomy, Heart Catheterization Additional Past Surgical History / Comment(s): carpal tunnel Bilateral twice, 1 cubital tunnel d&c, spinal puncture Past Anesthesia/Blood Transfusion Reactions: No Reported Reaction, Motion Sickness Additional Past Anesthesia/Blood Transfusion Reaction / Comment(s): clausterphobia. "has had blood in past-no reaction" Past Psychological History: Anxiety, Depression Smoking Status: Current every day smoker Past Alcohol Use History: None Reported Past Drug Use History: Marijuana - Past Family History Mother Family Medical History: No Reported History Father Family Medical History: Coronary Artery Disease (CAD), Diabetes Mellitus, Thyroid Disorder Brother(s) Family Medical History: Diabetes Mellitus <Marianne Dougherty - Last Filed: 04/27/20 18:59> General Exam Limitations: no limitations General appearance: alert, in no apparent distress Head exam: Present: atraumatic, normocephalic, normal inspection Eye exam: Present: normal appearance, PERRL, EOMI. Absent: scleral icterus, conjunctival injection, periorbital swelling ENT exam: Present: normal exam, mucous membranes moist Neck exam: Present: normal inspection. Absent: tenderness, meningismus, lymphadenopathy Respiratory exam: Present: wheezes, decreased breath sounds. Absent: normal lung sounds bilaterally, respiratory distress, rales, rhonchi, stridor Cardiovascular Exam: Present: regular rate, normal rhythm, normal heart sounds. Absent: systolic murmur, diastolic murmur, rubs, gallop, clicks GI/Abdominal exam: Present: soft, normal bowel sounds. Absent: distended, tenderness, guarding, rebound, rigid Extremities exam: Present: normal inspection, full ROM, normal capillary refill. Absent: tenderness, pedal edema, joint swelling, calf tenderness Back exam: Present: normal inspection Neurological exam: Present: alert, oriented X3, CN II-XII intact Psychiatric exam: Present: normal affect, normal mood <LadonnaMarianne - Last Filed: 04/27/20 18:59> - General Exam Comments Initial Comments: Asians a 42-year-old female. Patient's pulse ox is 88-87% on room air Patient appears to be labored breathing on initial evaluation. (Marianne Dougherty) Course Vital Signs 04/27/20 04/27/20 04/27/20 16:12 16:43 16:56 Temperature 98.1 F Pulse Rate 86 76 Respiratory 18 24 18 Rate Blood Pressure 174/92 O2 Sat by Pulse 89 L Oximetry 04/27/20 04/27/20 04/27/20 17:05 18:02 20:25 Temperature 98 F Pulse Rate 85 76 77 Respiratory 18 16 18 Rate Blood Pressure 151/83 169/102 O2 Sat by Pulse 92 L 94 L Oximetry 04/27/20 21:36 Temperature 98.9 F Pulse Rate 80 Respiratory 17 Rate Blood Pressure 153/86 O2 Sat by Pulse 93 L Oximetry Medical Decision Making - Lab Data Result diagrams: 04/27/20 16:31 04/27/20 16:31 - Radiology Data Radiology results: report reviewed <LadonnaMarianne - Last Filed: 04/27/20 18:59> - Lab Data Result diagrams: 04/27/20 16:31 04/27/20 16:31 <Rufina Porter - Last Filed: 05/02/20 04:13> - Medical Decision Making This patient's a 42-year-old female with history of asthma comes in today with worsening shortness of breath over the past 3 days. She arrived hypoxic with 80% on room air was placed on 3 L oxygen is now at 93% which is given double breathing treatments IV Solu-Medrol. Chest x-ray shows some concern for pulmonary edema. Her BNP although is unremarkable at this time. Patient's troponin test is negative. She continues to be somewhat hypoxic despite breathing treatments and she was given IV Lasix for concern for fluid overload. I discussed the case with Dr. Williamson whom discussed. Patient's PCP Dr. Li Patient will be admitted at this time. Patient will have IV steroids and repeated DuoNeb treatments. (Marianne Dougherty) I was available for consultation in the emergency department. The history and physical exam were done by the midlevel provider. I was consulted for this patients care. I reviewed the case with the midlevel provider and based on their presentation of the patient, I agree with the assessment, medical decision making and plan of care as documented. I evaluated the patient myself. I agree to hospital admission and discussed the case with Dr. Li who accepted admission. Chart was dictated using [employer] dictation software. Attempts were made to correct any dictation errors however some typographical errors may persist. (Rufina Porter) - Lab Data Lab Results 04/27/20 04/27/20 04/27/20 Range/Units 16:31 16:31 16:31 WBC 10.2 (3.8-10.6) k/uL RBC 5.13 (3.80-5.40) m/uL Hgb 14.5 (11.4-16.0) gm/dL Hct 47.3 H (34.0-46.0) % MCV 92.1 (80.0-100.0) fL MCH 28.2 (25.0-35.0) pg MCHC 30.7 L (31.0-37.0) g/dL RDW 15.9 H (11.5-15.5) % Plt Count 282 (150-450) k/uL Neutrophils % 71 % Lymphocytes % 20 % Monocytes % 5 % Eosinophils % 2 % Basophils % 1 % Neutrophils # 7.2 (1.3-7.7) k/uL Lymphocytes # 2.1 (1.0-4.8) k/uL Monocytes # 0.5 (0-1.0) k/uL Eosinophils # 0.2 (0-0.7) k/uL Basophils # 0.1 (0-0.2) k/uL Hypochromasia Marked PT 9.6 (9.0-12.0) sec INR 0.9 (<1.2) APTT 22.5 (22.0-30.0) sec D-Dimer 0.64 H (<0.60) mg/L FEU Sodium 137 (137-145) mmol/L Potassium 4.6 (3.5-5.1) mmol/L Chloride 106 (98-107) mmol/L Carbon Dioxide 26 (22-30) mmol/L Anion Gap 5 mmol/L BUN 15 (7-17) mg/dL Creatinine 0.54 (0.52-1.04) mg/dL Est GFR (CKD-EPI)AfAm >90 (>60 ml/min/1.73 sqM) Est GFR (CKD-EPI)NonAf >90 (>60 ml/min/1.73 sqM) Glucose 98 (74-99) mg/dL Plasma Lactic Acid Judd (0.7-2.0) mmol/L Calcium 9.9 (8.4-10.2) mg/dL Magnesium 2.2 (1.6-2.3) mg/dL Total Bilirubin 0.3 (0.2-1.3) mg/dL AST 35 (14-36) U/L ALT 40 H (4-34) U/L Alkaline Phosphatase 95 (38-126) U/L Troponin I (0.000-0.034) ng/mL NT-Pro-B Natriuret Pep pg/mL Total Protein 7.1 (6.3-8.2) g/dL Albumin 4.1 (3.5-5.0) g/dL Urine Color Urine Appearance (Clear) Urine pH (5.0-8.0) Ur Specific [place] (1.001-1.035) Urine Protein (Negative) Urine Glucose (UA) (Negative) Urine Ketones (Negative) Urine Blood (Negative) Urine Nitrite (Negative) Urine Bilirubin (Negative) Urine Urobilinogen (<2.0) mg/dL Ur Leukocyte Esterase (Negative) Urine RBC (0-5) /hpf Urine WBC (0-5) /hpf Ur Squamous Epith Cells (0-4) /hpf Urine Mucus (None) /hpf Coronavirus (PCR) (Not Detected) 04/27/20 04/27/20 04/27/20 Range/Units 16:31 16:31 16:31 WBC (3.8-10.6) k/uL RBC (3.80-5.40) m/uL Hgb (11.4-16.0) gm/dL Hct (34.0-46.0) % MCV (80.0-100.0) fL MCH (25.0-35.0) pg MCHC (31.0-37.0) g/dL RDW (11.5-15.5) % Plt Count (150-450) k/uL Neutrophils % % Lymphocytes % % Monocytes % % Eosinophils % % Basophils % % Neutrophils # (1.3-7.7) k/uL Lymphocytes # (1.0-4.8) k/uL Monocytes # (0-1.0) k/uL Eosinophils # (0-0.7) k/uL Basophils # (0-0.2) k/uL Hypochromasia PT (9.0-12.0) sec INR (<1.2) APTT (22.0-30.0) sec D-Dimer (<0.60) mg/L FEU Sodium (137-145) mmol/L Potassium (3.5-5.1) mmol/L Chloride (98-107) mmol/L Carbon Dioxide (22-30) mmol/L Anion Gap mmol/L BUN (7-17) mg/dL Creatinine (0.52-1.04) mg/dL Est GFR (CKD-EPI)AfAm (>60 ml/min/1.73 sqM) Est GFR (CKD-EPI)NonAf (>60 ml/min/1.73 sqM) Glucose (74-99) mg/dL Plasma Lactic Acid [place] 0.9 (0.7-2.0) mmol/L Calcium (8.4-10.2) mg/dL Magnesium (1.6-2.3) mg/dL Total Bilirubin (0.2-1.3) mg/dL AST (14-36) U/L ALT (4-34) U/L Alkaline Phosphatase (38-126) U/L Troponin I <0.012 (0.000-0.034) ng/mL NT-Pro-B Natriuret Pep 177 pg/mL Total Protein (6.3-8.2) g/dL Albumin (3.5-5.0) g/dL Urine Color Urine Appearance (Clear) Urine pH (5.0-8.0) Ur Specific [place] (1.001-1.035) Urine Protein (Negative) Urine Glucose (UA) (Negative) Urine Ketones (Negative) Urine Blood (Negative) Urine Nitrite (Negative) Urine Bilirubin (Negative) Urine Urobilinogen (<2.0) mg/dL Ur Leukocyte Esterase (Negative) Urine RBC (0-5) /hpf Urine WBC (0-5) /hpf Ur Squamous Epith Cells (0-4) /hpf Urine Mucus (None) /hpf Coronavirus (PCR) (Not Detected) 04/27/20 04/27/20 Range/Units 18:12 19:51 WBC (3.8-10.6) k/uL RBC (3.80-5.40) m/uL Hgb (11.4-16.0) gm/dL Hct (34.0-46.0) % MCV (80.0-100.0) fL MCH (25.0-35.0) pg MCHC (31.0-37.0) g/dL RDW (11.5-15.5) % Plt Count (150-450) k/uL Neutrophils % % Lymphocytes % % Monocytes % % Eosinophils % % Basophils % % Neutrophils # (1.3-7.7) k/uL Lymphocytes # (1.0-4.8) k/uL Monocytes # (0-1.0) k/uL Eosinophils # (0-0.7) k/uL Basophils # (0-0.2) k/uL Hypochromasia PT (9.0-12.0) sec INR (<1.2) APTT (22.0-30.0) sec D-Dimer (<0.60) mg/L FEU Sodium (137-145) mmol/L Potassium (3.5-5.1) mmol/L Chloride (98-107) mmol/L Carbon Dioxide (22-30) mmol/L Anion Gap mmol/L BUN (7-17) mg/dL Creatinine (0.52-1.04) mg/dL Est GFR (CKD-EPI)AfAm (>60 ml/min/1.73 sqM) Est GFR (CKD-EPI)NonAf (>60 ml/min/1.73 sqM) Glucose (74-99) mg/dL Plasma Lactic Acid [place] (0.7-2.0) mmol/L Calcium (8.4-10.2) mg/dL Magnesium (1.6-2.3) mg/dL Total Bilirubin (0.2-1.3) mg/dL AST (14-36) U/L ALT (4-34) U/L Alkaline Phosphatase (38-126) U/L Troponin I (0.000-0.034) ng/mL NT-Pro-B Natriuret Pep pg/mL Total Protein (6.3-8.2) g/dL Albumin (3.5-5.0) g/dL Urine Color Yellow Urine Appearance Clear (Clear) Urine pH 7.0 (5.0-8.0) Ur Specific [place] 1.043 H (1.001-1.035) Urine Protein Trace H (Negative) Urine Glucose (UA) Negative (Negative) Urine Ketones Negative (Negative) Urine Blood Negative (Negative) Urine Nitrite Negative (Negative) Urine Bilirubin Negative (Negative) Urine Urobilinogen <2.0 (<2.0) mg/dL Ur Leukocyte Esterase Trace H (Negative) Urine RBC 1 (0-5) /hpf Urine WBC 5 (0-5) /hpf Ur Squamous Epith Cells 8 H (0-4) /hpf Urine Mucus Rare H (None) /hpf Coronavirus (PCR) Not Detected (Not Detected) 04/27/20 17:09 EKG performed at 1629 shows normal sinus rhythm, low voltage QRS. Nonspecific ST-T wave abnormality. Ventricular rate of 76 bpm. Was 138 ms. QRS duration is 80 ms. QT QTc is 398/447 ms. (Marianne Dougherty) - Radiology Data Chest x-ray shows cardiomegaly and diffuse interstitial density. Correlating for CHF or mild pulmonary vascular congestion. No baudilio pulmonary edema. CT chest angio is negative for pulmonary embolism. (Marianne Dougherty) Disposition Is patient prescribed a controlled substance at d/c from ED?: No Time of Disposition: 19:03 <Marianne Dougherty - Last Filed: 04/27/20 18:59> <Rufina Porter - Last Filed: 05/02/20 04:13> Clinical Impression: Hypoxemia, Asthma with acute exacerbation, Pulmonary vascular congestion, Smoking Disposition: ADMITTED IP TO THIS HOSP Condition: Stable
--- NOTE | 2020-04-27 18:11 | CT ---
EXAMINATION TYPE: CT chest angio for PE DATE OF EXAM: 04/27/2020 COMPARISON: Prior CTA chest January 12, 2018. Chest x-ray earlier today HISTORY: SOB, elevated d-dimer CT DLP: 1029.3 mGycm. Automated Exposure Control for Dose Reduction was Utilized. CONTRAST: CTA scan of the thorax is performed with IV Contrast, patient injected with 100 mL of Isovue 370, pul monary embolism protocol. MIP Images are created on CT scanner and reviewed. FINDINGS: Exam noted suboptimal due to patient's large body habitus. Overall mosaic attenuation sugge sting mild bilateral alveolar edema. Mild to moderate areas of linear scarring and/or atelectasis in the mid to lower lungs is identified. No suspicious focal consolidation. No pleural effusion or pneum othorax seen. LUNGS: The lungs are grossly clear, there is no concerning parenchymal mass or nodule identified. T here is no pleural effusion or pneumothorax seen. The tracheobronchial tree is patent. MEDIASTINUM: There is satisfactory enhancement of the pulmonary artery and its branches, there is no CT evidence for pulmonary embolism. There are prominent right hilar lymph nodes. No suspicious thor acic adenopathy. No significant pericardial effusion is seen. Cardiomegaly with moderate biatrial dil atation redemonstrated. No thoracic aortic dissection. OTHER: Fairly moderate multilevel spurring and disc space narrowing throughout the thoracic spine fabby tered mid to lower thoracic levels. Cholecystectomy clips are redemonstrated. Mild hepatomegaly again seen. IMPRESSION: 1. No CT evidence for acute pulmonary embolism. 2. Suspect CHF exacerbation as there is cardiomegaly with mild bilateral alveolar edema. Correlate cl inically.
[2020-04-27] MEDS ORDERED: FUROSEMIDE 10 MG/ML 4 ML VIAL IV STA (18:13)
[2020-04-27 18:36] LABS: Appearance,Urine Clear (Clear); Bilirubin,Urine Negative (Negative); Blood,Urine Negative (Negative); Color,Urine Yellow; Glucose,Urine (UA) Negative (Negative); Ketones,Urine Negative (Negative); Leukocyte Esterase,Urine Trace (Negative); Mucus,Urine Rare /hpf; Nitrite,Urine Negative (Negative); Protein,Urine Trace (Negative); RBC,Urine 1 /hpf (0-5); Specific Gravity,Urine 1.043 (1.001-1.035); Squamous Epithelial Cell,Urine 8 /hpf (0-4); Urobilinogen,Urine <2.0 mg/dL (<2.0); WBC,Urine 5 /hpf (0-5)
[2020-04-27] MEDS: DULoxetine HCL 60 MG CAPSULE.DR PO SCH (21:46)
[2020-04-27] MEDS: TOPIRAMATE 100 MG TAB PO SCH (21:46)
[2020-04-27] MEDS: PREGABALIN 75 MG CAP PO SCH (21:46)
[2020-04-27 22:11] LABS: Glucose,Whole Blood 145 mg/dL (75-99)
[2020-04-27] MEDS: LATANOPROST 0.005% OPHTH DROPS 2.5 ML BTL BOTH EYES SCH (23:05)
[2020-04-27] MEDS: FLUTICASONE 50MCG/SPRAY NASAL 16GM EA NOSTRIL SCH (23:05)
[2020-04-27] MEDS: methylPREDNISolone SOD SUCCI 125 MG/2 ML VIAL IV SCH (23:06)
[2020-04-27] MEDS: ARIPiprazole 5 MG TAB PO SCH (23:06)
[2020-04-27] MEDS: ZOLPIDEM 10 MG TAB PO SCH (23:06)
[2020-04-27] MEDS: METOPROLOL TARTRATE 25 MG TAB PO SCH (23:06)
[2020-04-27] MEDS: ATORVASTATIN 20 MG TAB PO SCH (23:06)
[2020-04-27] MEDS: FERROUS SULFATE 325 MG TAB PO SCH (23:06)
[2020-04-28] MEDS: methylPREDNISolone SOD SUCCI 125 MG/2 ML VIAL IV SCH ×4 (05:35→22:40)
[2020-04-28] MEDS: LEVOTHYROXINE 25 MCG TAB PO SCH (05:35)
[2020-04-28] MEDS: FUROSEMIDE 20 MG TAB PO SCH (07:34)
[2020-04-28] MEDS: LISINOPRIL 10 MG TAB PO SCH (07:35)
[2020-04-28] MEDS: METOPROLOL TARTRATE 25 MG TAB PO SCH ×2 (07:35→20:35)
[2020-04-28] MEDS: PREGABALIN 75 MG CAP PO SCH ×3 (07:36→20:34)
[2020-04-28] MEDS: PANTOPRAZOLE 40 MG TABLET PO SCH (07:36)
[2020-04-28] MEDS: HYDROcodone/APAP 10-325MG 1 EACH TAB PO PRN (07:37)
[2020-04-28] MEDS: TOPIRAMATE 100 MG TAB PO SCH ×2 (07:37→20:35)
[2020-04-28] MEDS: LORATADINE 10 MG TAB PO SCH (07:37)
[2020-04-28] MEDS: FERROUS SULFATE 325 MG TAB PO SCH ×2 (07:37→20:35)
[2020-04-28] MEDS: ASPIRIN 81 MG PO SCH (07:38)
[2020-04-28] MEDS: amLODIPine 5 MG TAB PO SCH (07:38)
[2020-04-28] MEDS: IPRATROPIUM-ALBUTEROL 3 ML NEB INHALATION PRN ×4 (08:09→20:23)
[2020-04-28] MEDS ORDERED: VERAPAMIL SR 180 MG TABLET.ER PO SCH ×2 (09:00)
[2020-04-28] MEDS: VENLAFAXINE HCL ER 37.5 MG CAP PO SCH (10:03)
[2020-04-28] MEDS: VERAPAMIL SR 120 MG TABLET.ER PO SCH (10:03)
[2020-04-28] MEDS: BUTALB/APAP/CAFF 50-325-40MG TAB PO PRN ×2 (10:07→22:39)
[2020-04-28 11:29] LABS: Glucose,Whole Blood 190 mg/dL (75-99)
--- NOTE | 2020-04-28 11:57 | P.CNPUL ---
History of Present Illness Consult date: 04/28/20 Reason for consult: dyspnea, COPD History of present illness: 42-year-old female patient, morbidly obese with significant weight gain in the order of 50-60 pounds over the past 5 years, also known to have obstructive sleep apnea with an AHI of 15 and a CPAP pressure of 13 cm of water, also known to have COPD with an FEV1 of 61% of predicted, coming in the hospital because of worsening shortness of breath. The patient is a chronic smoker. She has no home oxygen. She uses only pro-air rescue inhaler when necessary. No other maintenance inhalational treatment. She had increased cough congestion chest tightness and wheezing prior to her hospital admission. CT angiogram was done and showed no evidence of any pulmonary embolism. No evidence of pneumonia. There could be some limited interstitial edema. No significant swelling in lo wer extremities. ProBNP is nonelevated and the troponins are negative. The patient was Hospital as for an acute COPD exacerbation. Covid 19 testing is still pending for now. She has no fever. She is on oral Lasix. She is on IV Solu-Medrol. She is not able to take her nebulizers pending Covid 19 evaluation. Review of Systems Constitutional: Reports daytime sleepiness, Reports fatigue, Reports weight gain Eyes: denies as per HPI, denies blurred vision, denies bulging eye, denies decreased vision, denies diplopia, denies discharge, denies dry eye, denies irritation, denies itching, denies pain, denies photophobia, denies loss of peripheral vision, denies loss of vision, denies tunnel vision/blind spots Ears: deny: decreased hearing, ear discharge, earache, tinnitus Ears, nose, mouth and throat: Reports as per HPI Breasts: absent: as per HPI, change in shape, gynecomastia, masses, nipple discharge, pain, skin changes, swelling Cardiovascular: Reports decreased exercise tolerance, Reports dyspnea on exertion, Reports shortness of breath Respiratory: Reports cough, Reports dyspnea Gastrointestinal: Reports as per HPI Genitourinary: Reports as per HPI Menstruation: Reports as per HPI Musculoskeletal: Reports as per HPI, Reports limitation of motion, Reports muscle weakness Musculoskeletal: absent: ankle pain, ankle stiffness, ankle swelling Neurological: Reports as per HPI, Reports weakness Psychiatric: Reports as per HPI Endocrine: Reports as per HPI Hematologic/Lymphatic: Reports as per HPI Allergic/Immunologic: Reports as per HPI Past Medical History Past Medical History: COPD, Hypertension, Osteoarthritis (OA), Sleep Apnea/CPAP/BIPAP Additional Past Medical History / Comment(s): RSD dx 2013 lesions on brain,"memory issues" possible MS no definitive dx as of yet, Spinal puncture, obesity, peripheral neuropathy diogenes feet/legs arms, migraines, murmur, occular hypertension History of Any Multi-Drug Resistant Organisms: None Reported Past Surgical History: Appendectomy, Section, Cholecystectomy, Heart Catheterization Additional Past Surgical History / Comment(s): carpal tunnel Bilateral twice, 1 cubital tunnel d&c, spinal puncture Past Anesthesia/Blood Transfusion Reactions: No Reported Reaction, Motion Sickness Additional Past Anesthesia/Blood Transfusion Reaction / Comment(s): clausterphobia. "has had blood in past-no reaction" Past Psychological History: Anxiety, Depression Additional Psychological History / Comment(s): lives with spouse. does'nr work outside the home. has cpap(but it's old-does'nt use stated needs new one), cane, walker, nebulizer. Smoking Status: Current some day smoker Past Alcohol Use History: None Reported Additional Past Alcohol Use History / Comment(s): started smoking 1989 down 2 cigs daily Past Drug Use History: Marijuana Additional Drug Use History / Comment(s): occ use - Past Family History Mother Family Medical History: No Reported History Father Family Medical History: Coronary Artery Disease (CAD), Diabetes Mellitus, Thyroid Disorder Brother(s) Family Medical History: Diabetes Mellitus Medications and Allergies Home Medications Medication Instructions Recorded Confirmed Type Butalb/APAP/Caff 50-325-40Mg 1 tab PO Q8HR PRN 05/22/17 04/27/20 History [Fioricet 50-325-40] DULoxetine HCL [Cymbalta] 60 mg PO HS 05/22/17 04/27/20 History Ferrous Sulfate [Iron (65 MG 325 mg PO BID 05/22/17 04/27/20 History Elemental)] Ibuprofen 800 mg PO BID PRN 05/22/17 04/27/20 History Topiramate [Topamax] 100 mg PO BID 05/22/17 04/27/20 History Pregabalin [Lyrica] 150 mg PO TID 01/12/18 04/27/20 History Aspirin EC [Ecotrin Low Dose] 81 mg PO DAILY 06/06/18 04/27/20 History Loratadine [Claritin] 10 mg PO DAILY 06/06/18 04/27/20 History Albuterol Sulfate [Proair Hfa] 1 - 2 puff INHALATION RT-Q6H PRN 08/18/19 06/02/11 History Furosemide [Lasix] 20 mg PO DAILY 08/18/19 04/27/20 History HYDROcodone/APAP 10-325MG [[place] 1 tab PO TID PRN 08/18/19 04/27/20 History 10-325] ARIPiprazole [Abilify] 5 mg PO HS 04/27/20 04/27/20 History Atorvastatin [Lipitor] 20 mg PO HS 04/27/20 04/27/20 History Erenumab-Aooe [Aimovig 140 mg PO Q30D 04/27/20 04/27/20 History Autoinjector] Fluticasone Nasal [place] [Flonase 2 spray EA NOSTRIL HS 04/27/20 04/27/20 History Nasal [place]] Ipratropium-Albuterol Nebulize 3 ml INHALATION RT-QID 04/27/20 04/27/20 History [Duoneb 0.5 mg-3 mg/3 ml Soln] Latanoprost/Pf [Latanoprost 0.005% 1 drop BOTH EYES HS 04/27/20 04/27/20 History Eye Drop] Levothyroxine Sodium [Synthroid] 25 mcg PO DAILY 04/27/20 04/27/20 History Metoprolol Tartrate [Lopressor] 12.5 mg PO BID 04/27/20 04/27/20 History Omeprazole 20 mg PO QAM 04/27/20 04/27/20 History Rizatriptan Benzoate [Rizatriptan] 10 mg PO DIRECTED PRN 04/27/20 04/27/20 History Venlafaxine HCl ER [Effexor XR] 37.5 mg PO DAILY 04/27/20 04/27/20 History Verapamil HCl [Verapamil ER] 120 mg PO DAILY 04/27/20 04/27/20 History Zolpidem [Ambien] 10 mg PO HS 04/27/20 04/27/20 History amLODIPine BESYLATE/BENAZEPRIL 1 tab PO DAILY 04/27/20 04/27/20 History [amLODIPine BESYLATE/BENAZEPRIL 5-10 MG] Allergies Allergy/AdvReac Type Severity Reaction Status Date / Time morphine Allergy Itching Verified 04/27/20 22:01 Sulfa (Sulfonamide Allergy RAPID Verified 04/27/20 22:01 Antibiotics) HEART RATE AND HIVES Physical Exam Vitals: Vital Signs Temp Pulse Pulse Resp BP BP Pulse Ox 04/28/20 11:48 84 04/28/20 11:37 80 04/28/20 08:20 76 04/28/20 08:09 76 04/28/20 07:50 16 04/28/20 07:26 97.6 F 71 16 142/85 94 L 04/28/20 01:35 98.1 F 76 151/84 96 04/27/20 21:40 98.9 F 78 172/97 95 04/27/20 21:36 98.9 F 80 17 153/86 93 L 04/27/20 20:25 98 F 77 18 169/102 94 L 04/27/20 18:02 76 16 151/83 92 L 04/27/20 17:05 85 18 04/27/20 16:56 76 18 04/27/20 16:43 24 04/27/20 16:12 98.1 F 86 18 174/92 89 L Intake and Output 04/27/20 04/28/20 04/28/20 22:59 06:59 14:59 Other: # Voids 3 Weight 145.15 kg Morbidly obese, comfortable nonacute distress did not using this is a muscle breathing. Head exam was generally normal. There was no scleral icterus or corneal arcus. Mucous membranes were moist. Neck is supple and the patient is a Mallampati class IV. No with or neck masses. Lungs sounds are diminished and the patient had diffuse expiratory wheezes throughout all of his bilaterally. Cardiac exam revealed the PMI to be normally situated and sized. The rhythm was regular and no extrasystoles were noted during several minutes of auscultation. The first and second heart sounds were normal and physiologic splitting of the second heart sound was noted. There were no murmurs, rubs, clicks, or gallops. Abdomen is obese soft nontender. Organs cannot be accurately palpated. No direct tenderness rebound tensile guarding. Examination of the extremities revealed easily palpable radial, femoral and pedal pulses. There was no cyanosis, clubbing or edema. Examination of the skin revealed no evidence of significant rashes, suspicious appearing nevi or other concerning lesions. Neurologically awake and alert 3 and there is no focal neurological deficit. Results - Laboratory Findings CBC and BMP: 04/27/20 16:31 04/27/20 16:31 PT/INR, D-dimer PT 9.6 sec (9.0-12.0) 04/27/20 16:31 INR 0.9 (<1.2) 04/27/20 16:31 D-Dimer 0.64 mg/L FEU (<0.60) H 04/27/20 16:31 Abnormal lab findings: Abnormal Labs 04/27/20 04/27/20 04/27/20 16:31 16:31 16:31 Hct 47.3 H MCHC 30.7 L RDW 15.9 H D-Dimer 0.64 H POC Glucose (mg/dL) ALT 40 H Ur Specific [place] Urine Protein Ur Leukocyte Esterase Ur Squamous Epith Cells Urine Mucus 04/27/20 04/27/20 04/28/20 18:12 22:09 11:27 Hct MCHC RDW D-Dimer POC Glucose (mg/dL) 145 H 190 H ALT Ur Specific [place] 1.043 H Urine Protein Trace H Ur Leukocyte Esterase Trace H Ur Squamous Epith Cells 8 H Urine Mucus Rare H - Diagnostic Findings Chest x-ray: image reviewed CT scan - chest: image reviewed Assessment and Plan Plan: 1 acute COPD exacerbation with secondary shortness of breath. The patient is a chronic smoker. CAT scan of the chest shows no evidence of any pulmonary embolism utilizing the CT angios protocol. There is no evidence of any pneumonia. 2 morbid obesity with BMI 54.9 contiguity to her shortness of breath 3 obstructive sleep apnea, AHI 15, supposed utilizes CPAP pressure of 13 cm of water 4 no signs of any congestion heart failure 5 hypertension 6 history of reflux empiric dystrophy diagnosed in 2016 7 abnormal MRI of the brain with several lesions, nondiagnostic for MS based on previous evaluation workup and spinal tap 8 chronic peripheral neuropathy and back pain 9 complex migraines 10 debility secondary to above-mentioned comorbidities Plan Awaiting Covid 19 evaluation, low clinical suspicion droplet isolation initiated DuoNeb nebulized treatments once Covid 19 testing is done and negativity is confirmed Smoking cessation counseling Outpatient management of obstructive sleep apnea Will need a repeat pulmonal function test on outpatient basis to evaluate the extent of COPD and adjustments of the maintenance after medication is to be done considering her limited insurance coverage for this type of medications\\ We'll continue to follow. Home medications have been resumed. CT angios gram has been noted.
[2020-04-28] MEDS: INSULIN ASPART (NovoLOG) 100 UNIT/ML VIAL SQ SCH ×3 (12:38→20:36)
--- NOTE | 2020-04-28 15:09 | P.HPIM ---
History of Present Illness H&P Date: 04/28/20 Chief Complaint: Dyspnea This is a 50-year-old female with history of COPD, hypertension, osteoarthritis, sleep apnea, morbid obesity, anxiety, depression, nicotine dependence and multiple other medical issues presented to the ER with complaints of worsening shortness of breath. Reports increased nonproductive cough, congestion and wheezing. D-dimer elevated. CTA reported no PE, lungs are grossly clear, no concerning mass or nodule identified, no pleural effusion, no pneumothorax, and tracheobronchial tree patent. Afebrile, Normal WBC, maintaining O2 sats in the 90s on 3 L nasal cannula. Patient states she has oxygen at home and wears whenever needed, not consistently. BNP, troponins negative. Coronavirus not detected. Maintained on nebulized bronchodilators, IV steroids. Review of Systems ROS Statement: Those systems with pertinent positive or pertinent negative responses have been documented in the HPI. ROS Other: All systems not noted in ROS Statement are negative. Past Medical History Past Medical History: COPD, Hypertension, Osteoarthritis (OA), Sleep Apnea/CPAP/BIPAP Additional Past Medical History / Comment(s): RSD dx 2013 lesions on brain,"memory issues" possible MS no definitive dx as of yet, Spinal puncture, obesity, peripheral neuropathy diogenes feet/legs arms, migraines, murmur, occular hypertension History of Any Multi-Drug Resistant Organisms: None Reported Past Surgical History: Appendectomy, Section, Cholecystectomy, Heart Catheterization Additional Past Surgical History / Comment(s): carpal tunnel Bilateral twice, 1 cubital tunnel d&c, spinal puncture Past Anesthesia/Blood Transfusion Reactions: No Reported Reaction, Motion Sickness Additional Past Anesthesia/Blood Transfusion Reaction / Comment(s): clausterphobia. "has had blood in past-no reaction" Past Psychological History: Anxiety, Depression Additional Psychological History / Comment(s): lives with spouse. does'nr work outside the home. has cpap(but it's old-does'nt use stated needs new one), cane, walker, nebulizer. Smoking Status: Current some day smoker Past Alcohol Use History: None Reported Additional Past Alcohol Use History / Comment(s): started smoking 1989 down 2 cigs daily Past Drug Use History: Marijuana Additional Drug Use History / Comment(s): occ use - Past Family History Mother Family Medical History: No Reported History Father Family Medical History: Coronary Artery Disease (CAD), Diabetes Mellitus, Thyroid Disorder Brother(s) Family Medical History: Diabetes Mellitus Medications and Allergies Home Medications Medication Instructions Recorded Confirmed Type Butalb/APAP/Caff 50-325-40Mg 1 tab PO Q8HR PRN 05/22/17 04/27/20 History [Fioricet 50-325-40] DULoxetine HCL [Cymbalta] 60 mg PO HS 05/22/17 04/27/20 History Ferrous Sulfate [Iron (65 MG 325 mg PO BID 05/22/17 04/27/20 History Elemental)] Ibuprofen 800 mg PO BID PRN 05/22/17 04/27/20 History Topiramate [Topamax] 100 mg PO BID 05/22/17 04/27/20 History Pregabalin [Lyrica] 150 mg PO TID 01/12/18 04/27/20 History Aspirin EC [Ecotrin Low Dose] 81 mg PO DAILY 06/06/18 04/27/20 History Loratadine [Claritin] 10 mg PO DAILY 06/06/18 04/27/20 History Albuterol Sulfate [Proair Hfa] 1 - 2 puff INHALATION RT-Q6H PRN 08/18/19 04/27/20 History Furosemide [Lasix] 20 mg PO DAILY 08/18/19 04/27/20 History HYDROcodone/APAP 10-325MG [[place] 1 tab PO TID PRN 08/18/19 04/27/20 History 10-325] ARIPiprazole [Abilify] 5 mg PO HS 04/27/20 04/27/20 History Atorvastatin [Lipitor] 20 mg PO HS 04/27/20 04/27/20 History Erenumab-Aooe [Aimovig 140 mg PO Q30D 04/27/20 04/27/20 History Autoinjector] Fluticasone Nasal [place] [Flonase 2 spray EA NOSTRIL HS 04/27/20 04/27/20 History Nasal [place]] Ipratropium-Albuterol Nebulize 3 ml INHALATION RT-QID 04/27/20 04/27/20 History [Duoneb 0.5 mg-3 mg/3 ml Soln] Latanoprost/Pf [Latanoprost 0.005% 1 drop BOTH EYES HS 04/27/20 04/27/20 History Eye Drop] Levothyroxine Sodium [Synthroid] 25 mcg PO DAILY 04/27/20 04/27/20 History Metoprolol Tartrate [Lopressor] 12.5 mg PO BID 04/27/20 04/27/20 History Omeprazole 20 mg PO QAM 04/27/20 04/27/20 History Rizatriptan Benzoate [Rizatriptan] 10 mg PO DIRECTED PRN 04/27/20 04/27/20 History Venlafaxine HCl ER [Effexor XR] 37.5 mg PO DAILY 04/27/20 04/27/20 History Verapamil HCl [Verapamil ER] 120 mg PO DAILY 04/27/20 04/27/20 History Zolpidem [Ambien] 10 mg PO HS 04/27/20 04/27/20 History amLODIPine BESYLATE/BENAZEPRIL 1 tab PO DAILY 04/27/20 04/27/20 History [amLODIPine BESYLATE/BENAZEPRIL 5-10 MG] Allergies Allergy/AdvReac Type Severity Reaction Status Date / Time morphine Allergy Itching Verified 04/27/20 22:01 Sulfa (Sulfonamide Allergy RAPID Verified 04/27/20 22:01 Antibiotics) HEART RATE AND HIVES Physical Exam Vitals: Vital Signs Temp Pulse Pulse Resp BP BP Pulse Ox 04/28/20 08:20 76 04/28/20 08:09 76 04/28/20 07:50 16 04/28/20 07:26 97.6 F 71 16 142/85 94 L 04/28/20 01:35 98.1 F 76 151/84 96 04/27/20 21:40 98.9 F 78 172/97 95 04/27/20 21:36 98.9 F 80 17 153/86 93 L 04/27/20 20:25 98 F 77 18 169/102 94 L 04/27/20 18:02 76 16 151/83 92 L 04/27/20 17:05 85 18 04/27/20 16:56 76 18 04/27/20 16:43 24 04/27/20 16:12 98.1 F 86 18 174/92 89 L Intake and Output 04/27/20 04/28/20 04/28/20 22:59 06:59 14:59 Other: # Voids 3 Weight 145.15 kg PHYSICAL EXAM: VITAL SIGNS: As above GENERAL: Sitting up in bed, no acute distress. HEENT: Conjunctivae normal. eyes normal. NECK: No JVD. No thyroid enlargement. No LNs CARDIOVASCULAR: S1, S2 regular.. No murmur RESPIRATION: Breath sounds diminished in the bases. No rhonchi or crackles. No wheezing ,No bronchial breathing. ABDOMEN: Soft, nontender, obese , no masses palpable -limited exam , positive Bowel sounds. LEGS: No edema. no swelling PSYCHIATRY: Alert and oriented X3, mood and affect normal. NERVOUS SYSTEM: Cranial N 2-12 grossly normal. Moves all 4 limbs.No focal deficits. Strength and sensation grossly intact.. Skin: no rash Lymphatic system. No LN neck axilla. Results CBC & Chem 7: 04/27/20 16:31 04/27/20 16:31 Labs: Abnormal Lab Results - Last 24 Hours (Table) 04/27/20 04/27/20 04/27/20 Range/Units 16:31 16:31 16:31 Hct 47.3 H (34.0-46.0) % MCHC 30.7 L (31.0-37.0) g/dL RDW 15.9 H (11.5-15.5) % D-Dimer 0.64 H (<0.60) mg/L FEU POC Glucose (mg/dL) (75-99) mg/dL ALT 40 H (4-34) U/L Ur Specific [place] (1.001-1.035) Urine Protein (Negative) Ur Leukocyte Esterase (Negative) Ur Squamous Epith Cells (0-4) /hpf Urine Mucus (None) /hpf 04/27/20 04/27/20 Range/Units 18:12 22:09 Hct (34.0-46.0) % MCHC (31.0-37.0) g/dL RDW (11.5-15.5) % D-Dimer (<0.60) mg/L FEU POC Glucose (mg/dL) 145 H (75-99) mg/dL ALT (4-34) U/L Ur Specific [place] 1.043 H (1.001-1.035) Urine Protein Trace H (Negative) Ur Leukocyte Esterase Trace H (Negative) Ur Squamous Epith Cells 8 H (0-4) /hpf Urine Mucus Rare H (None) /hpf Thrombosis Risk Factor Assmnt - Choose All That Apply Any of the Below Risk Factors Present?: Yes Each Factor Represents 1 point: Age 41-60 years, Obesity (BMI >25) Other Risk Factors: No Thrombosis Risk Factor Assessment Total Risk Factor Score: 2 Thrombosis Risk Factor Assessment Level: Low Risk Assessment and Plan Assessment: Acute COPD exacerbation, coronavirus not detected, no evidence of pneumonia as per pulmonary. PE ruled out Obstructive sleep apnea Osteoarthritis Hypertension Morbid obesity, BMI 54.9 Anxiety Depression Ongoing nicotine dependence Marijuana use Plan: Continue on current medication regime ,monitoring and symptomatic treatment. Aggressive pulmonary toileting with nebulized bronchodilators, IV steroids.. Smoking cessation reinforced. Discharge planning in progress pending pulmonary clearance. The impression and plan of care has been dictated as directed. : I performed a history and examination of this patient, discussed the same with the dictator. I agree with the dictator's note ,documented as a scribe. Any additional findings or plans will be noted.
[2020-04-28 16:45] LABS: Glucose,Whole Blood 181 mg/dL (75-99)
[2020-04-28 20:30] LABS: Glucose,Whole Blood 163 mg/dL (75-99)
[2020-04-28] MEDS: ZOLPIDEM 10 MG TAB PO SCH (20:34)
[2020-04-28] MEDS: ATORVASTATIN 20 MG TAB PO SCH (20:34)
[2020-04-28] MEDS: ARIPiprazole 5 MG TAB PO SCH (20:34)
[2020-04-28] MEDS: DULoxetine HCL 60 MG CAPSULE.DR PO SCH (20:35)
[2020-04-28] MEDS: FLUTICASONE 50MCG/SPRAY NASAL 16GM EA NOSTRIL SCH (20:35)
[2020-04-28] MEDS: LATANOPROST 0.005% OPHTH DROPS 2.5 ML BTL BOTH EYES SCH (20:36)
[2020-04-28] MEDS: IBUPROFEN 800 MG TAB PO PRN (22:40)
[2020-04-29] MEDS: HYDROcodone/APAP 10-325MG 1 EACH TAB PO PRN (00:24)
[2020-04-29] MEDS: methylPREDNISolone SOD SUCCI 125 MG/2 ML VIAL IV SCH ×3 (05:35→17:46)
[2020-04-29] MEDS: LEVOTHYROXINE 25 MCG TAB PO SCH (05:35)
[2020-04-29 06:50] LABS: Glucose,Whole Blood 180 mg/dL (75-99)
[2020-04-29] MEDS: INSULIN ASPART (NovoLOG) 100 UNIT/ML VIAL SQ SCH ×4 (07:38→21:46)
[2020-04-29] MEDS: PANTOPRAZOLE 40 MG TABLET PO SCH (07:41)
[2020-04-29] MEDS: amLODIPine 5 MG TAB PO SCH (07:41)
[2020-04-29] MEDS: PREGABALIN 75 MG CAP PO SCH ×3 (07:42→21:46)
[2020-04-29] MEDS: FUROSEMIDE 20 MG TAB PO SCH (07:42)
[2020-04-29] MEDS: LISINOPRIL 10 MG TAB PO SCH (07:42)
[2020-04-29] MEDS: LORATADINE 10 MG TAB PO SCH (07:42)
[2020-04-29] MEDS: ASPIRIN 81 MG PO SCH (07:42)
[2020-04-29] MEDS: FERROUS SULFATE 325 MG TAB PO SCH ×2 (07:43→21:46)
[2020-04-29] MEDS: TOPIRAMATE 100 MG TAB PO SCH ×2 (07:43→21:45)
[2020-04-29] MEDS ORDERED: SUMAtriptan SUCCINATE 50 MG TAB PO PRN (07:45)
[2020-04-29] MEDS ORDERED: SUMAtriptan SUCCINATE 50 MG TAB PO STA (07:47)
[2020-04-29] MEDS: IPRATROPIUM-ALBUTEROL 3 ML NEB INHALATION PRN (08:45)
[2020-04-29] MEDS: METOPROLOL TARTRATE 25 MG TAB PO SCH ×2 (09:06→21:46)
[2020-04-29] MEDS ORDERED: IPRATROPIUM-ALBUTEROL 3 ML NEB INHALATION SCH (09:45)
[2020-04-29] MEDS: VERAPAMIL SR 120 MG TABLET.ER PO SCH (10:17)
[2020-04-29] MEDS: VENLAFAXINE HCL ER 37.5 MG CAP PO SCH (10:17)
--- NOTE | 2020-04-29 10:55 | P.PN ---
Subjective Progress Note Date: 04/29/20 Principal diagnosis: Acute exacerbation chronic obstructive pulmonary disease 50-year-old female patient, morbidly obese with significant weight gain in the order of 50-60 pounds over the past 5 years, also known to have obstructive sleep apnea with an AHI of 15 and a CPAP pressure of 13 cm of water, also known to have COPD with an FEV1 of 61% of predicted, coming in the hospital because of worsening shortness of breath. The patient is a chronic smoker. She has no home oxygen. She uses only pro-air rescue inhaler when necessary. No other maintenance inhalational treatment. She had increased cough congestion chest tightness and wheezing prior to her hospital admission. CT angiogram was done and showed no evidence of any pulmonary embolism. No evidence of pneumonia. There could be some limited interstitial edema. No significant swelling in lower extremities. ProBNP is nonelevated and the troponins are negative. The patient was Hospital as for an acute COPD exacerbation. Covid 19 testing is still pending for now. She has no fever. She is on oral Lasix. She is on IV Solu-Medrol. She is not able to take her nebulizers pending Covid 19 evaluation. The patient is seen today 04/29/2020 in follow-up on the regular medical floor. She is awake and alert in no acute distress. Breathing a bit easier today compared to yesterday. Maintaining good O2 saturation in the mid 90s on 2 L/m per nasal cannula. She remains afebrile. Blood cultures reveal no growth to date. Blood glucose 180. [place] virus not detected. She is continued on IV Solu-Medrol, bronchodilators. Objective - Vital Signs Vital signs: Vital Signs Temp 97.7 F 04/29/20 07:00 Pulse 76 04/29/20 08:56 Resp 17 04/29/20 07:00 BP 123/83 04/29/20 07:00 Pulse Ox 95 04/29/20 07:41 Intake & Output 04/28/20 04/29/20 04/29/20 18:59 06:59 18:59 Intake Total 1620 800 Balance 1620 800 Intake: Oral 1620 800 Other: Voiding Method Toilet # Voids 3 1 - Exam Morbidly obese, pleasant 50-year-old female patient, comfortable no acute distress, not using accessory muscles for breathing. Head exam was generally normal. There was no scleral icterus or corneal arcus. Mucous membranes were moist. Neck is supple and the patient is a Mallampati class IV. No with or neck masses. Lungs sounds are diminished and the patient had mild end expiratory wheezes throughout bilaterally. Cardiac exam revealed the PMI to be normally situated and sized. The rhythm was regular and no extrasystoles were noted during several minutes of auscultation. The first and second heart sounds were normal and physiologic splitting of the second heart sound was noted. There were no murmurs, rubs, clicks, or gallops. Abdomen is obese soft nontender. Organs cannot be accurately palpated. No direct tenderness rebound tensile guarding. Examination of the extremities revealed easily palpable radial, femoral and pedal pulses. There was no cyanosis, clubbing or edema. Examination of the skin revealed no evidence of significant rashes, suspicious appearing nevi or other concerning lesions. Neurologically awake and alert 3 and there is no focal neurological deficit. - Labs CBC & Chem 7: 04/27/20 16:31 04/27/20 16:31 Labs: Abnormal Lab Results - Last 24 Hours (Table) 04/28/20 04/28/20 04/28/20 Range/Units 11:27 16:43 20:28 POC Glucose (mg/dL) 190 H 181 H 163 H (75-99) mg/dL 04/29/20 Range/Units 06:48 POC Glucose (mg/dL) 180 H (75-99) mg/dL Microbiology - Last 24 Hours (Table) 04/27/20 22:05 Blood Culture - Preliminary Blood No Growth after 24 hours Assessment and Plan Assessment: 1 acute COPD exacerbation with secondary shortness of breath. The patient is a chronic smoker. CAT scan of the chest shows no evidence of any pulmonary embolism utilizing the CT angios protocol. There is no evidence of any pneumonia. CoVID screening negative 2 morbid obesity with BMI 54.9 contiguity to her shortness of breath 3 obstructive sleep apnea, AHI 15, supposed utilizes CPAP pressure of 13 cm of water 4 no signs of any congestion heart failure 5 hypertension 6 history of reflux empiric dystrophy diagnosed in 2016 7 abnormal MRI of the brain with several lesions, nondiagnostic for MS based on previous evaluation workup and spinal tap 8 chronic peripheral neuropathy and back pain 9 complex migraines 10 debility secondary to above-mentioned comorbidities Plan The patient was seen and evaluated by Dr. Benito Currently stable from the pulmonary standpoint Continue treatment for COPD exacerbation Again educated regarding complete smoking cessation Repeat PFT in the outpatient setting Work with insurance regarding medication coverage Increase her activity as tolerated We'll continue to follow I, the cosigning physician, performed a history & physical examination of the patient. Lungs sounds with faint end expiratory wheeze bilaterally. Maintaining good O2 saturations in the 90s on 2 L/m per nasal cannula. I discussed the assessment and plan of care with my nurse practitioner, Va Loving. I attest to the above note as dictated by her.
[2020-04-29 11:25] LABS: Glucose,Whole Blood 192 mg/dL (75-99)
[2020-04-29] MEDS: IPRATROPIUM-ALBUTEROL 3 ML NEB INHALATION SCH ×3 (11:55→19:48)
[2020-04-29] MEDS: BUTALB/APAP/CAFF 50-325-40MG TAB PO PRN ×2 (12:52→19:57)
--- NOTE | 2020-04-29 13:45 | P.PN ---
Subjective Progress Note Date: 04/29/20 This is a 50-year-old female with history of COPD, hypertension, osteoarthritis, sleep apnea, morbid obesity, anxiety, depression, nicotine dependence and multiple other medical issues presented to the ER with complaints of worsening shortness of breath. Reports increased nonproductive cough, congestion and wheezing. D-dimer elevated. CTA reported no PE, lungs are grossly clear, no concerning mass or nodule identified, no pleural effusion, no pneumothorax, and tracheobronchial tree patent. Afebrile, Normal WBC, maintaining O2 sats in the 90s on 3 L nasal cannula. Patient states she has oxygen at home and wears whenever needed, not consistently. BNP, troponins negative. Coronavirus not detected. Maintained on nebulized bronchodilators, IV steroids. 04/29/2020 maintained on nebulized bronchodilators, steroids. significant clinical improvement. No wheezing. Maintaining O2 sats in the 90s on 2 L nasal cannula. Afebrile. Preliminary Blood cultures reporting no growth. Complains of migraine headache. Objective - Vital Signs Vital signs: Vital Signs Temp 97.7 F 04/29/20 07:00 Pulse 72 04/29/20 12:07 Resp 17 04/29/20 07:00 BP 123/83 04/29/20 07:00 Pulse Ox 95 04/29/20 07:41 Intake & Output 04/28/20 04/29/20 04/29/20 18:59 06:59 18:59 Intake Total 1620 800 Balance 1620 800 Intake: Oral 1620 800 Other: Voiding Method Toilet # Voids 3 1 - Exam PHYSICAL EXAM: VITAL SIGNS: As above GENERAL: Sitting up in bed, no acute distress. HEENT: Conjunctivae normal. eyes normal. NECK: No JVD. No thyroid enlargement. No LNs CARDIOVASCULAR: S1, S2 regular.. No murmur RESPIRATION: Breath sounds diminished in the bases. No rhonchi or crackles. No wheezing ABDOMEN: Soft, nontender, obese , no masses palpable -limited exam , positive Bowel sounds. LEGS: No edema. no swelling PSYCHIATRY: Alert and oriented X3, mood and affect normal. NERVOUS SYSTEM: Cranial N 2-12 grossly normal. Moves all 4 limbs.No focal deficits. Strength and sensation grossly intact.. Skin: no rash Lymphatic system. No LN neck axilla. - Labs CBC & Chem 7: 04/27/20 16:31 06/03/20 16:31 Labs: Abnormal Lab Results - Last 24 Hours (Table) 04/28/20 04/28/20 04/29/20 Range/Units 16:43 20:28 06:48 POC Glucose (mg/dL) 181 H 163 H 180 H (75-99) mg/dL 04/29/20 Range/Units 11:24 POC Glucose (mg/dL) 192 H (75-99) mg/dL Microbiology - Last 24 Hours (Table) 04/27/20 22:05 Blood Culture - Preliminary Blood No Growth after 24 hours Assessment and Plan Assessment: Acute COPD exacerbation, coronavirus not detected, no evidence of pneumonia as per pulmonary. PE ruled out Obstructive sleep apnea Osteoarthritis Hypertension Morbid obesity, BMI 54.9 Anxiety Depression Ongoing nicotine dependence Marijuana use Obesity, morbid, BMI 54.9 Plan: Continue on current medication regime ,monitoring and symptomatic treatment. Imitrex ordered for headache.Maintain aggressive pulmonary toileting with nebulized bronchodilators, IV steroids.Smoking cessation reinforced. Discharge planning in progress pending pulmonary clearance. Patient would benefit from pulmonary rehab outpatient as per pulmonary. The impression and plan of care has been dictated as directed. : I performed a history and examination of this patient, discussed the same with the dictator. I agree with the dictator's note ,documented as a scribe. Any additional findings or plans will be noted.
[2020-04-29 16:48] LABS: Glucose,Whole Blood 216 mg/dL (75-99)
[2020-04-29 19:35] VITALS: RESP 20
[2020-04-29] MEDS: IBUPROFEN 800 MG TAB PO PRN (19:58)
[2020-04-29 20:59] LABS: Glucose,Whole Blood 241 mg/dL (75-99)
[2020-04-29] MEDS: ZOLPIDEM 10 MG TAB PO SCH (21:45)
[2020-04-29] MEDS: ATORVASTATIN 20 MG TAB PO SCH (21:45)
[2020-04-29] MEDS: ARIPiprazole 5 MG TAB PO SCH (21:45)
[2020-04-29] MEDS: FLUTICASONE 50MCG/SPRAY NASAL 16GM EA NOSTRIL SCH (21:46)
[2020-04-29] MEDS: DULoxetine HCL 60 MG CAPSULE.DR PO SCH (21:46)
[2020-04-29] MEDS: LATANOPROST 0.005% OPHTH DROPS 2.5 ML BTL BOTH EYES SCH (21:47)
[2020-04-30] MEDS: methylPREDNISolone SOD SUCCI 125 MG/2 ML VIAL IV SCH ×2 (00:21→05:52)
[2020-04-30] MEDS: LEVOTHYROXINE 25 MCG TAB PO SCH (05:52)
[2020-04-30 07:03] LABS: Glucose,Whole Blood 188 mg/dL (75-99)
[2020-04-30 07:56] VITALS: BP 157/84; TEMP 97.8
[2020-04-30] MEDS: INSULIN ASPART (NovoLOG) 100 UNIT/ML VIAL SQ SCH ×2 (08:16→12:03)
[2020-04-30] MEDS: METOPROLOL TARTRATE 25 MG TAB PO SCH (08:17)
[2020-04-30] MEDS: FERROUS SULFATE 325 MG TAB PO SCH (08:17)
[2020-04-30] MEDS: LISINOPRIL 10 MG TAB PO SCH (08:17)
[2020-04-30] MEDS: PANTOPRAZOLE 40 MG TABLET PO SCH (08:17)
[2020-04-30] MEDS: TOPIRAMATE 100 MG TAB PO SCH (08:17)
[2020-04-30] MEDS: amLODIPine 5 MG TAB PO SCH (08:18)
[2020-04-30] MEDS: VERAPAMIL SR 120 MG TABLET.ER PO SCH (08:18)
[2020-04-30] MEDS: PREGABALIN 75 MG CAP PO SCH (08:18)
[2020-04-30] MEDS: FUROSEMIDE 20 MG TAB PO SCH (08:18)
[2020-04-30] MEDS: ASPIRIN 81 MG PO SCH (08:18)
[2020-04-30] MEDS: VENLAFAXINE HCL ER 37.5 MG CAP PO SCH (08:19)
[2020-04-30] MEDS: IPRATROPIUM-ALBUTEROL 3 ML NEB INHALATION SCH ×2 (08:37→11:40)
--- NOTE | 2020-04-30 11:04 | P.PN ---
Subjective Progress Note Date: 04/30/20 Principal diagnosis: Acute exacerbation chronic obstructive pulmonary disease 50-year-old female patient, morbidly obese with significant weight gain in the order of 50-60 pounds over the past 5 years, also known to have obstructive sleep apnea with an AHI of 15 and a CPAP pressure of 13 cm of water, also known to have COPD with an FEV1 of 61% of predicted, coming in the hospital because of worsening shortness of breath. The patient is a chronic smoker. She has no home oxygen. She uses only pro-air rescue inhaler when necessary. No other maintenance inhalational treatment. She had increased cough congestion chest tightness and wheezing prior to her hospital admission. CT angiogram was done and showed no evidence of any pulmonary embolism. No evidence of pneumonia. There could be some limited interstitial edema. No significant swelling in lower extremities. ProBNP is nonelevated and the troponins are negative. The patient was Hospital as for an acute COPD exacerbation. Covid 19 testing is still pending for now. She has no fever. She is on oral Lasix. She is on IV Solu-Medrol. She is not able to take her nebulizers pending Covid 19 evaluation. The patient is seen today 04/29/2020 in follow-up on the regular medical floor. She is awake and alert in no acute distress. Breathing a bit easier today compared to yesterday. Maintaining good O2 saturation in the mid 90s on 2 L/m per nasal cannula. She remains afebrile. Blood cultures reveal no growth to date. Blood glucose 180. Park virus not detected. She is continued on IV Solu-Medrol, bronchodilators. The patient is seen today 04/30/2020 follow-up on the regular medical floor. Yossi galan is awake and alert in no acute distress. Currently sitting up in a chair at the bedside. She is maintaining O2 saturation in the mid 90s on 2 L/m per nasal cannula. She's been afebrile. Blood cultures reveal no growth. Blood glucose 188. She remains on steroids and bronchodilators. Objective - Vital Signs Vital signs: Vital Signs Temp 97.8 F 04/30/20 07:00 Pulse 79 04/30/20 08:50 Resp 20 04/30/20 07:00 BP 157/84 04/30/20 07:00 Pulse Ox 96 04/30/20 07:00 Intake & Output 04/29/20 04/30/20 04/30/20 18:59 06:59 18:59 Intake Total 500 Balance 500 Intake: Oral 500 Other: Voiding Method Toilet # Voids 1 - Exam Morbidly obese, pleasant 50-year-old female patient, comfortable no acute distress, not using accessory muscles for breathing. On 2 L nasal cannula. Head exam was generally normal. There was no scleral icterus or corneal arcus. Mucous membranes were moist. Neck is supple and the patient is a Mallampati class IV. No with or neck masses. Lungs sounds are diminished and the patient had mild end expiratory wheezes throughout bilaterally. Cardiac exam revealed the PMI to be normally situated and sized. The rhythm was regular and no extrasystoles were noted during several minutes of auscultation. The first and second heart sounds were normal and physiologic splitting of the second heart sound was noted. There were no murmurs, rubs, clicks, or gallops. Abdomen is obese soft nontender. Organs cannot be accurately palpated. No direct tenderness rebound tensile guarding. Examination of the extremities revealed easily palpable radial, femoral and pedal pulses. There was no cyanosis, clubbing or edema. Examination of the skin revealed no evidence of significant rashes, suspicious appearing nevi or other concerning lesions. Neurologically awake and alert 3 and there is no focal neurological deficit. - Labs CBC & Chem 7: 04/27/20 16:31 04/27/20 16:31 Labs: Abnormal Lab Results - Last 24 Hours (Table) 04/29/20 04/29/20 04/29/20 Range/Units 11:24 16:47 20:56 POC Glucose (mg/dL) 192 H 216 H 241 H (75-99) mg/dL 04/30/20 Range/Units 07:02 POC Glucose (mg/dL) 188 H (75-99) mg/dL Microbiology - Last 24 Hours (Table) 04/27/20 22:05 Blood Culture - Preliminary Blood No Growth after 48 hours Assessment and Plan Assessment: 1 acute COPD exacerbation with secondary shortness of breath. The patient is a chronic smoker. CAT scan of the chest shows no evidence of any pulmonary embolism utilizing the CT angios protocol. There is no evidence of any pneumonia. CoVID screening negative 2 morbid obesity with BMI 54.9 contributing to her shortness of breath 3 obstructive sleep apnea, AHI 15, supposed utilizes CPAP pressure of 13 cm of water 4 no signs of any congestion heart failure 5 hypertension 6 history of reflux empiric dystrophy diagnosed in 2016 7 abnormal MRI of the brain with several lesions, nondiagnostic for MS based on previous evaluation workup and spinal tap 8 chronic peripheral neuropathy and back pain 9 complex migraines 10 debility secondary to above-mentioned comorbidities Plan The patient was seen and evaluated by Dr. Benito Cleared for discharge from the pulmonary standpoint Assess for home oxygen Again educated regarding complete smoking cessation We'll try Air Duo to see if there is insurance coverage for home maintenance inhaler, continue albuterol Complete a prednisone taper starting at 40 mg daily for 4 days Follow-up in the office in 1-2 weeks' time I, the cosigning physician, performed a history & physical examination of the patient. Lungs sounds with faint end expiratory wheeze bilaterally. Maintaining good O2 saturations in the 90s on 2 L/m per nasal cannula. I discussed the assessment and plan of care with my nurse practitioner, Va Loving. I attest to the above note as dictated by her.
[2020-04-30] MEDS: LORATADINE 10 MG TAB PO SCH (11:17)
[2020-04-30 11:21] LABS: Glucose,Whole Blood 209 mg/dL (75-99)
[2020-04-30 11:50] VITALS: PULSE 76
--- NOTE | 2020-04-30 21:14 | DS ---
DISCHARGE SUMMARY DATE OF SERVICE: 04/30/2020 FINAL DIAGNOSES: 1. Chronic obstructive pulmonary disease acute exacerbation with acute purulent tracheobronchitis. 2. Chronic hypoxic respiratory failure. 3. Morbid obesity. 4. Obstructive sleep apnea. 5. No signs of congestive heart failure. 6. Hypertension. 7. Chronic peripheral neuropathy. 8. Complex migraines. 9. Obesity with body mass index of 54.9. 10.Steroid induced diabetes mellitus type 2. 11.Hypertension. 12.History of degenerative joint disease. 13.History of anxiety, depression. DISCHARGE CONDITION: The patient discharged in stable condition with guarded prognosis. Total time taken 35 minutes. Discharge cleared by Pulmonary. HISTORY OF PRESENT ILLNESS: This 50-year-old woman with a past medical problems as mentioned earlier, being followed by Dr. Li in the outpatient setting admitted with shortness with COPD, acute exacerbation, treated with bronchodilators and steroids. Patient improved significantly. Patient also needed home O2, which is being arranged at this time because of chronic hypoxic respiratory failure. On exam, vitals are stable. Cardiovascular System: S1, S2. Respiratory: A few rhonchi. Abdomen soft. Nervous System: No focal deficits. Pulmonary cleared the patient for discharge. DISCHARGE ADVICE: Diet is cardiac. Activity limited until follow up. Follow up with Dr. Li as recommended. Follow up with Pulmonary as recommended. MEDICATIONS: 1. Abilify 5 mg p.o. q.h.s. 2. Aimovig 140 mg Q 30 days. 3. Ambien 10 mg q.h.s. 4. Norvasc. 5. Amlodipine-benazepril combination 510 mg 1 p.o. daily. 6. Claritin 10 mg p.o. daily. 7. Cymbalta 60 mg q.h.s. 8. DuoNeb q.i.d. and p.r.n. 9. Ecotrin 81 mg p.o. daily. 10.Effexor XR 37.5 mg p.o. daily. 11.Albuterol. 12.Fioricet 1 q.8h p.r.n. 13.Fluticasone 2 sprays daily next p.r.n. 14.Ibuprofen 800 mg b.i.d. p.r.n. 15.Iron sulfate 320 mg b.i.d. 16.Lasix 20 mg p.o. daily. 17.Latanoprost 1 drop both eyes. 18.Lipitor 20 mg q.h.s. 19.Lopressor 12.5 mg p.o. b.i.d. 20.Lyrica 150 mg p.o. t.i.d. 21.[place] 10 mg t.i.d. p.r.n. 22.Omeprazole 20 mg q.a.m. 23.ProAir 1-2 puffs q.6 p.r.n. 24.Rizatriptan 10 mg p.r.n. 25.Synthroid 25 mcg p.o. daily. 26.Topamax 100 mg p.o. b.i.d. p.r.n. 27.Verapamil 120 mg p.o. daily. 28.Prednisone taper that is 40 mg daily for 3 days, 30 for 3 days, 20 for 3 days and 10 for 3 days. Once again, the patient discharged is discharged in stable condition with guarded prognosis. MMADRIÁNL / MERYLN: [id number] /
[2020-05-01] MEDS ORDERED: predniSONE 20 MG TAB PO SCH (09:00)
== END 2020-04-30 14:12 | disposition home or self-care (01) | DRG 191 ==
LOC: EC 16:11 → 4SSUR 20:01
PROVIDERS: ADMIT Family Medicine; ATTEND Family Medicine
DX: J44.1 Chronic obstructive pulmonary disease with (acute) exacerbation (principal); J96.11 Chronic respiratory failure with hypoxia; Z68.43 Body mass index [BMI] 50.0-59.9, adult; E09.9 Drug or chemical induced diabetes mellitus without complications; T38.0X5A Adverse effect of glucocorticoids and synthetic analogues, initial encounter; E66.01 Morbid (severe) obesity due to excess calories; F17.200 Nicotine dependence, unspecified, uncomplicated; F32.9 Major depressive disorder, single episode, unspecified; F41.9 Anxiety disorder, unspecified; G43.109 Migraine with aura, not intractable, without status migrainosus; G47.33 Obstructive sleep apnea (adult) (pediatric); G62.9 Polyneuropathy, unspecified; I10 Essential (primary) hypertension; M19.90 Unspecified osteoarthritis, unspecified site; K21.9 Gastro-esophageal reflux disease without esophagitis; M54.9 Dorsalgia, unspecified; Z20.828 Contact with and (suspected) exposure to other viral communicable diseases; J20.9 Acute bronchitis, unspecified; G89.29 Other chronic pain; H40.059 Ocular hypertension, unspecified eye; Z79.82 Long term (current) use of aspirin; Z79.890 Hormone replacement therapy; Z79.899 Other long term (current) drug therapy; Z90.49 Acquired absence of other specified parts of digestive tract; Z88.5 Allergy status to narcotic agent; Z88.2 Allergy status to sulfonamides; Z82.49 Family history of ischemic heart disease and other diseases of the circulatory system; Z83.3 Family history of diabetes mellitus; Z83.49 Family history of other endocrine, nutritional and metabolic diseases
CPT/HCPCS: 36415; 71046; 71275; 80053; 81001; 83605; 83735; 83880; 84484; 85025; 85379; 85610; 85730; 87040; 93005; 94640; 94760; 96361; 96374; 96375; 99285

== ENCOUNTER 2020-12-15 12:19 | Day surgery (SDC) | payer OTHER ==
[2020-11-01 11:33] VITALS: BMI 55.7
--- NOTE | 2020-12-14 14:40 | HP ---
HISTORY AND PHYSICAL DATE OF SURGERY: 12/15/2020 Kim So is a 50-year-old patient who is seen with progressive right knee pain. We discussed options. She elected to proceed with right knee arthroscopy. Consent was obtained. PAST MEDICAL HISTORY: Asthma, depression, hypertension, hypothyroidism. PAST SURGICAL HISTORY: Appendectomy, carpal tunnel release, section. DAILY MEDICATIONS: None reported. SOCIAL HISTORY: Smokes 1 pack of cigarettes daily. PHYSICAL EVALUATION OF THE RIGHT KNEE: Range of motion is -2 to 130. Tenderness medial joint line. Positive medial Moshe's. Patellar crepitus on range of motion. Ligaments stable. Hip rotation without pain. Distal neurovascular exam is intact. Radiographs of the right knee revealed osteoarthritic changes. MRI right knee revealed medial meniscal tear. IMPRESSION: 1. Internal derangement right knee with medial meniscal tear. 2. Right knee osteoarthritis. 3. Chronic low back pain. 4. Morbid obesity. PLAN: Right knee arthroscopy with partial meniscectomy, partial synovectomy and debridement. MMODL / IJN: [id number] /
[~2020-12-15 12:19] MED LIST changes: +DEXAMETHASONE SOD PHOSPHATE 4 MG/ML 1 ML VIAL IV ONE; +HYDROmorphone 0.5 MG/0.5 ML SYRINGE IVP PRN; +LIDOCAINE 1% (10MG/ML) FOR IV START INTRADERMA PRN; +MIDAZOLAM 2 MG/2 ML VIAL IV PRN; +ONDANSETRON 4 MG/2 ML VIAL IVP ONE; +ceFAZolin 3 GM in SODIUM CHLORIDE 0.9% 100 ML IVPB PRN; +fentaNYL (PF) 50 MCG/ML 2 ML AMP IV PRN
[2020-12-15] MEDS ORDERED: fentaNYL (PF) 50 MCG/ML 2 ML AMP ONE (13:52)
[2020-12-15] MEDS ORDERED: GLYCOPYRROLATE 0.2 MG/ML 2 ML VIAL ONE (13:52)
[2020-12-15] MEDS ORDERED: PROPOFOL 10 MG/ML 20 ML VIAL IV ONE (13:52)
[2020-12-15] MEDS ORDERED: ePHEDrine SULFATE/0.9% NACL/PF 50 MG/5 ML SYRINGE IV ONE (13:52)
[2020-12-15] MEDS ORDERED: SUCCINYLCHOLINE CHLORIDE VIAL 200 MG/10 ML VIAL IV ONE (13:52)
[2020-12-15] MEDS ORDERED: LIDOCAINE 1% INJ 10MG/ML (20 ML MDV) ONE (13:52)
[2020-12-15] MEDS ORDERED: PHENYLEPHRINE 10 MG/ML VIAL ONE (13:52)
[2020-12-15] MEDS ORDERED: BUPIVACAINE (PF) 0.25% 30 ML VIAL SQ ONE (14:39)
--- NOTE | 2020-12-15 15:01 | P.OP ---
Date of Procedure: 12/15/20 Preoperative Diagnosis: Installed derangement right knee Postoperative Diagnosis: 1. Tear medial meniscus right knee 2. 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 Grade 4 chondromalacia medial femoral condyle right knee 4. Reactive synovitis medial, lateral and suprapatellar compartments right knee Procedure(s) Performed: 1. Arthroscopic partial medial meniscectomy right 2. Arthroscopic chondroplasty medial femoral condyle right knee 3. Arthroscopic chondroplasty patellofemoral joint right knee 4. Arthroscopic partial synovectomy medial, lateral and suprapatellar compartments right knee Anesthesia: ADAIRA, local Surgeon: Alex Cortez Estimated Blood Loss (ml): 6 Pathology: none sent Condition: stable Disposition: PACU Indications for Procedure: 50-year-old patient seen with progressive right knee pain. After treatment options were discussed, she elected to proceed with arthroscopy. Operative Findings: See description of procedure Description of Procedure: Patient was taken to the operative suite. Patient underwent a general anesthetic by the department of anesthesia. Patient was given preoperative antibiotics. The right lower extremity was placed in a well-padded arthroscopic leg canales. The right leg was prepped and draped in the normal sterile orthopedic fashion. A lateral parapatellar and suprapatellar incision was made. Trochars were inserted. Arthroscopy was initiated. Suprapatellar pouch revealed diffuse thick reactive synovitis. The patellofemoral joint appeared to articulate congruently. There was grade 3/4 chondromalacia involving both the patella and the femoral sulcus with diffuse osteochondral tears present. The scope was guided into the medial gutter.. No loose bodies or plica were identified. The scope was then guided into the medial compartment. A medial parapatellar incision was made. Trocar inserted followed by probe. There was a complex tear involving the posterior medial meniscus. There were grade 3/4 chondromalacia changes the medial femoral condyle as well as the tibial plateau. There was area of exposed bone along both the medial femoral condyle and tibial plateau. There was thick reactive synovitis anteriorly. I performed a partial medial meniscectomy getting down to stable meniscal tissue. I performed a chondroplasty of the medial femoral condyle as well as preforming a partial synovectomy decompressing the reactive synovitis anteriorly. The residual meniscus was stable. The residual osteochondral surface was stable. There was good decompression of the synovitis. I again noted grade 4 chondromalacia esse ntially [id number] arthritis involving the medial compartment. Scope and probe were then guided into the intercondylar notch. Cruciates were identified, probed and found to be stable. The scope and probe were then guided into lateral compartment. There was some mild superficial fraying of the lateral meniscus. There was thick reactive synovitis anteriorly. There were grade 2/3 chondromalacia changes but no osteochondral tears present. I debrided that superficial fraying of lateral meniscus. I performed a partial synovectomy. There was good decompression of the synovitis. The scope was in guided back into the suprapatellar compartment. I introduced a motorized shaver into the super compartment. I debrided some piecemeal fragments of meniscus I encountered. I performed a chondroplasty of the patella and femoral sulcus getting down to stable osteochondral tissue. I performed a partial synovectomy decompressing thick reactive synovitis. The shaver was removed. There was good decompression of synovitis. The residual osteochondral surface was stable. I took one more look around the entire knee, no residual debris. Instruments were now removed from the joint. The joint was infiltrated with .25% Marcaine. Steri-Strips were applied to the portal sites. Sterile dressings were applied. The patient was placed into a [employer] hose. No tourniquet was utilized. The patie nt was awakened, transferred to a bed and taken to recovery stable satisfactory condition.
[2020-12-15 15:17] VITALS: TEMP 97.3
[2020-12-15 16:34] VITALS: RESP 20
[2020-12-15] MEDS ORDERED: HYDROcodone/APAP 10-325MG 1 EACH TAB ONE (16:39)
[2020-12-15] MEDS ORDERED: HYDROcodone/APAP 10-325MG 1 EACH TAB PO ONE (16:40)
[2020-12-15 17:22] VITALS: BP 106/69; PULSE 64
== END 2020-12-15 17:30 | disposition home or self-care (01) ==
LOC: OR 12:19
PROVIDERS: ATTEND Orthopaedic Surgery
DX: M23.203 Derangement of unspecified medial meniscus due to old tear or injury, right knee (principal); M22.41 Chondromalacia patellae, right knee; M65.861 Other synovitis and tenosynovitis, right lower leg; M17.11 Unilateral primary osteoarthritis, right knee; J45.909 Unspecified asthma, uncomplicated; F32.9 Major depressive disorder, single episode, unspecified; I10 Essential (primary) hypertension; E03.9 Hypothyroidism, unspecified; E78.5 Hyperlipidemia, unspecified; Z98.891 History of uterine scar from previous surgery; F17.210 Nicotine dependence, cigarettes, uncomplicated; G89.29 Other chronic pain; M54.5 Low back pain; E66.01 Morbid (severe) obesity due to excess calories; Z68.43 Body mass index [BMI] 50.0-59.9, adult; G47.33 Obstructive sleep apnea (adult) (pediatric); Z90.49 Acquired absence of other specified parts of digestive tract; Z98.890 Other specified postprocedural states; Z99.81 Dependence on supplemental oxygen; Z79.899 Other long term (current) drug therapy; Z88.5 Allergy status to narcotic agent; Z88.2 Allergy status to sulfonamides
CPT/HCPCS: 81025; 29881; J0330; J1100; J2370; J0690; J2405; J2001; J3010; J2704

== ENCOUNTER → 2021-03-10 | Outpatient (CLI) | payer OTHER ==
--- NOTE | 2021-03-10 16:28 | US ---
EXAMINATION TYPE: US venous doppler duplex LE BI DATE OF EXAM: 03/10/2021 3:34 PM COMPARISON: 08/18/2019 CLINICAL HISTORY: 50-year-old female I82.409 Acute embolism and thrombosis of unspecified. SIDE PERFORMED: Bilateral TECHNIQUE: The lower extremity deep venous system is examined utilizing real time linear array sonog carlita with graded compression, doppler sonography and color-flow sonography. FINDINGS: VESSELS IMAGED: Common Femoral Vein Deep Femoral Vein Greater Saphenous Vein * Femoral Vein Popliteal Vein Small Saphenous Vein * Proximal Calf Veins (* superficial vessels) School [employer] Supervisor notes: Technically difficult study due to patient body habitus. Limited compression views . Right Leg: Negative for DVT Left Leg: Negative for DVT IMPRESSION: Technically difficult and limited exam. To the extent visualized, no evidence for DVT within the bila teral lower extremities from the groin to the upper calf.
== END | disposition home or self-care (01) ==
LOC: RADUSWWP 14:55
PROVIDERS: ATTEND Family Medicine
DX: I82.409 Acute embolism and thrombosis of unspecified deep veins of unspecified lower extremity (principal)
CPT/HCPCS: 93970

== ENCOUNTER 2021-04-21 21:53 | Observation (INO) | payer OTHER ==
[2021-04-21] MEDS ORDERED: ASPIRIN 81 MG PO STA (22:14)
[2021-04-21] MEDS ORDERED: NITROGLYCERIN SL TABS 0.4 MG TAB SUBLINGUAL STA (22:14)
--- NOTE | 2021-04-21 22:18 | ED ---
Chest Pain HPI - General Chief Complaint: Chest Pain Stated Complaint: Chest pain,SOB Time Seen by Provider: 04/21/21 21:59 Source: patient Mode of arrival: wheelchair - History of Present Illness MD Complaint: chest pain Onset/Timin -: hour(s) Onset: during rest Pain Location: left chest Pain Radiation: none Quality: sharp Consistency: constant Improves With: nothing Worsens With: nothing Treatments Prior to Arrival: none - Related Data Home Medications Medication Instructions Recorded Confirmed Butalb/APAP/Caff 50-325-40Mg 1 tab PO Q8HR PRN 05/22/17 12/12/20 [Fioricet 50-325-40] DULoxetine HCL [Cymbalta] 60 mg PO HS 05/22/17 12/12/20 Ibuprofen 800 mg PO BID PRN 05/22/17 12/12/20 Topiramate [Topamax] 100 mg PO BID 05/22/17 12/12/20 Pregabalin [Lyrica] 150 mg PO TID 01/12/18 12/12/20 Aspirin EC [Ecotrin Low Dose] 81 mg PO DAILY 06/06/18 12/12/20 Loratadine [Claritin] 10 mg PO DAILY 06/06/18 12/12/20 Albuterol Sulfate [Proair Hfa] 1 - 2 puff INHALATION Q4HR PRN 08/18/19 12/12/20 Furosemide [Lasix] 20 mg PO DAILY 08/18/19 12/12/20 HYDROcodone/APAP 10-325MG [[place] 1 tab PO TID PRN 08/18/19 12/12/20 10-325] ARIPiprazole [Abilify] 5 mg PO HS 04/27/20 12/12/20 Atorvastatin [Lipitor] 20 mg PO HS 04/27/20 12/12/20 Erenumab-Aooe [Aimovig 140 mg INJ Q30D 04/27/20 12/12/20 Autoinjector] Ipratropium-Albuterol Nebulize 3 ml INHALATION RT-QID PRN 04/27/20 12/12/20 [Duoneb 0.5 mg-3 mg/3 ml Soln] Metoprolol Tartrate [Lopressor] 12.5 mg PO BID 04/27/20 12/12/20 Rizatriptan Benzoate [Rizatriptan] 10 mg PO DIRECTED PRN 04/27/20 12/12/20 Venlafaxine HCl ER [Effexor XR] 37.5 mg PO DAILY 04/27/20 12/12/20 Zolpidem [Ambien] 10 mg PO HS 04/27/20 12/12/20 amLODIPine BESYLATE/BENAZEPRIL 1 tab PO HS 04/27/20 12/12/20 [amLODIPine BESYLATE/BENAZEPRIL 5-10 MG] Iron Tab 5 gm PO BID 11/01/20 12/12/20 Latanoprost [Xalatan 0.005%] 1 drop BOTH EYES HS 11/01/20 12/12/20 Omeprazole [PriLOSEC] 40 mg PO DAILY 11/01/20 12/12/20 Verapamil HCl [Verapamil ER] 180 mg PO DAILY 11/01/20 12/12/20 Allergies Allergy/AdvReac Type Severity Reaction Status Date / Time morphine Allergy Itching/hiv Verified 04/21/21 21:58 es/sob Sulfa (Sulfonamide Allergy RAPID Verified 04/21/21 21:58 Antibiotics) HEART RATE AND HIVES Review of Systems ROS Statement: Those systems with pertinent positive or pertinent negative responses have been documented in the HPI. ROS Other: All systems not noted in ROS Statement are negative. Constitutional: Denies: fever, chills Respiratory: Denies: cough, dyspnea Cardiovascular: Reports: as per HPI, chest pain. Denies: palpitations, orthopnea, edema, syncope Gastrointestinal: Denies: abdominal pain, nausea, vomiting Genitourinary: Denies: dysuria, hematuria Musculoskeletal: Denies: back pain Skin: Denies: rash Neurological: Denies: headache, weakness, numbness EKG Findings - EKG Results: EKG: interpreted by ERMD, sinus rhythm (Rate 89 bpm), normal axis, normal QRS Past Medical History Past Medical History: Asthma, COPD, CVA/TIA, Hyperlipidemia, Hypertension, Osteoarthritis (OA), Pneumonia, Sleep Apnea/CPAP/BIPAP, Thyroid Disorder Additional Past Medical History / Comment(s): RSD dx 2012 lesions on brain,"memory issues" possible MS no definitive dx as of yet, peripheral neuropathy-diogenes feet/legs arms, migraines, murmur, occular hypertension, probably stroke-no residual effects, "top part of heart beats slower that the bottom", no cpap used, uses oxygen at night and PRN, anemia, this surgery was rescheduled from Oct. due to cold sx but resolved now History of Any Multi-Drug Resistant Organisms: None Reported Past Surgical History: Appendectomy, Section, Cholecystectomy, Heart Catheterization, Orthopedic Surgery Additional Past Surgical History / Comment(s): diogenes carpal tunnel, left cubital tunnel, d&c, spinal puncture, knee surgery Past Anesthesia/Blood Transfusion Reactions: Motion Sickness Additional Past Anesthesia/Blood Transfusion Reaction / Comment(s): claustrophobia. "has had blood in past-no reaction" Past Psychological History: Anxiety, Depression Smoking Status: Current every day smoker Past Alcohol Use History: None Reported Past Drug Use History: None Reported - Past Family History Father Family Medical History: Cancer Brother(s) Family Medical History: Diabetes Mellitus General Exam General appearance: alert, in no apparent distress Head exam: Present: atraumatic, normocephalic Eye exam: Present: normal appearance. Absent: scleral icterus, conjunctival injection ENT exam: Present: normal oropharynx Neck exam: Present: normal inspection Respiratory exam: Present: normal lung sounds bilaterally. Absent: respiratory distress, wheezes, rales, rhonchi, stridor, chest wall tenderness Cardiovascular Exam: Present: regular rate, normal rhythm, normal heart sounds. Absent: systolic murmur, diastolic murmur, rubs, gallop GI/Abdominal exam: Present: soft. Absent: distended, tenderness, guarding, rebound, rigid, mass Extremities exam: Present: normal inspection, normal capillary refill. Absent: pedal edema, calf tenderness Back exam: Present: normal inspection. Absent: CVA tenderness (R), CVA tenderness (L) Neurological exam: Present: alert Skin exam: Present: warm, dry, intact, normal color. Absent: rash Course Vital Signs 04/21/21 21:55 Temperature 98 F Pulse Rate 96 Respiratory 18 Rate Blood Pressure 199/110 O2 Sat by Pulse 84 L Oximetry Disposition Referrals: Eirckson Li DO [Primary Care Provider] - 1-2 days
--- NOTE | 2021-04-21 22:59 | XR ---
EXAMINATION TYPE: XR chest 2V DATE OF EXAM: 04/21/2021 COMPARISON: 04/27/2020 HISTORY: Short of breath TECHNIQUE: 2 views FINDINGS: There is no heart failure nor confluent pneumonic infiltrate. Costophrenic angles are clear . There are no hilar masses. Heart is borderline enlarged. Bony thorax is intact. IMPRESSION: Borderline cardiomegaly. No active cardiopulmonary disease.. No change.
[2021-04-21 23:08] LABS: Anisocytosis Slight; Basophils # (A) 0.1 k/uL (0-0.2); Basophils % (A) 1 %; Eosinophils # (A) 0.2 k/uL (0-0.7); Eosinophils % (A) 2 %; HCT 43.3 % (34.0-46.0); HGB 12.1 gm/dL (11.4-16.0); Hypochromasia Marked; Lymphocytes # (A) 1.7 k/uL (1.0-4.8); Lymphocytes % (A) 23 %; MCH 21.3 pg (25.0-35.0); MCHC 27.9 g/dL (31.0-37.0); MCV 76.5 fL (80.0-100.0); Mean Platelet Volume 8.9; Microcytosis Slight; Monocytes # (A) 0.5 k/uL (0-1.0); Monocytes % (A) 7 %; Neutrophils # (A) 4.8 k/uL (1.3-7.7); Neutrophils % (A) 65 %; Platelet Count 203 k/uL (150-450); Poikilocytosis Slight; RBC 5.66 m/uL (3.80-5.40); RDW 17.9 % (11.5-15.5); WBC 7.3 k/uL (3.8-10.6)
[2021-04-21 23:15] LABS: ALT 30 U/L (4-34); AST 34 U/L (14-36); African American GFR (CKD) >90 (>60 ml/min/1.73 sqM); Albumin 3.7 g/dL (3.5-5.0); Alkaline Phosphatase 89 U/L (38-126); Amylase 38 U/L (30-110); Anion Gap 3 mmol/L; Blood Urea Nitrogen 14 mg/dL (7-17); Calcium 9.2 mg/dL (8.4-10.2); Carbon Dioxide 36 mmol/L (22-30); Chloride 101 mmol/L (98-107); Glucose 115 mg/dL (74-99); Lipase 100 U/L (23-300); Magnesium 2.2 mg/dL (1.6-2.3); Non-African American GFR(CKD) >90 (>60 ml/min/1.73 sqM); Potassium 4.5 mmol/L (3.5-5.1); Sodium 140 mmol/L (137-145); Total Bilirubin 0.2 mg/dL (0.2-1.3); Total Protein 6.5 g/dL (6.3-8.2)
[2021-04-21 23:25] LABS: INR 0.9 (<1.2); Prothrombin Time 9.8 sec (9.0-12.0)
[2021-04-21 23:37] LABS: D-Dimer 0.67 mg/L FEU (<0.60); Partial Thromboplastin Time 21.2 sec (22.0-30.0)
--- NOTE | 2021-04-22 00:43 | CT ---
EXAM: CT Angiography Chest With Intravenous Contrast CLINICAL HISTORY: ITS.REASON CT Reason: possible PE TECHNIQUE: Axial computed tomographic angiography images of the chest with intravenous contrast. CTDI is 54.184 mGy and DLP is 1067 mGy-cm. This CT exam was performed using one or more of the following dose reduction techniques: automated exposure control, adjustment of the mA and/or kV according to patient size, and/or use of iterative reconstruction technique. MIP reconstructed images were created and reviewed. COMPARISON: No relevant prior studies available. FINDINGS: Pulmonary arteries: No pulmonary embolus. Aorta: No thoracic aortic dissection or aneurysm. Lungs: Mild bronchial thickening seen within the right lower lobe with Mosaic attenuation of the lungs. Findings may represent an inflammatory or infectious process with air trapping from small airways. No mass. Pleural space: Unremarkable. No significant effusion. No pneumothorax. Heart: Unremarkable. No cardiomegaly. No significant pericardial effusion. No evidence of RV dysfunction. Bones/joints: No acute fracture. No dislocation. Soft tissues: Unremarkable. Lymph nodes: Unremarkable. No enlarged lymph nodes. IMPRESSION: 1. No pulmonary embolus. 2. Mild bronchial thickening seen within the right lower lobe with Mosaic attenuation of the lungs. Findings may represent an inflammatory or infectious process with air trapping from small airways.
[2021-04-22] MEDS ORDERED: NITROGLYCERIN SL TABS 0.4 MG TAB SUBLINGUAL PRN (01:12)
[2021-04-22] MEDS ORDERED: HYDROcodone/APAP 10-325MG 1 EACH TAB PO PRN (01:14)
[2021-04-22] MEDS ORDERED: ALBUTEROL NEBULIZED 2.5 MG/3 ML INHALATION PRN (01:14)
[2021-04-22] MEDS ORDERED: BUTALB/APAP/CAFF 50-325-40MG TAB PO PRN (01:30)
[2021-04-22] MEDS ORDERED: IBUPROFEN 800 MG TAB PO PRN (02:00)
[2021-04-22] MEDS ORDERED: LEVOTHYROXINE 50 MCG TAB PO SCH (06:30)
[2021-04-22] MEDS ORDERED: SYMBICORT 160-4.5 MCG INHALER INHALATION SCH (08:00)
[2021-04-22] MEDS ORDERED: tiZANidine 4 MG TAB PO PRN (09:00)
[2021-04-22] MEDS ORDERED: FUROSEMIDE 40 MG TAB PO SCH (09:00)
[2021-04-22] MEDS ORDERED: METOPROLOL TARTRATE 12.5 MG TAB PO SCH (09:00)
[2021-04-22] MEDS ORDERED: amLODIPine 5 MG TAB PO SCH (09:00)
[2021-04-22] MEDS ORDERED: PREGABALIN 75 MG CAP PO SCH (09:00)
[2021-04-22] MEDS ORDERED: lisinopriL 10 MG TAB PO SCH (09:00)
[2021-04-22] MEDS ORDERED: VENLAFAXINE HCL ER 37.5 MG CAP PO SCH (09:00)
[2021-04-22] MEDS ORDERED: TOPIRAMATE 100 MG TAB PO SCH (09:00)
[2021-04-22] MEDS ORDERED: FERROUS SULFATE 325 MG TAB PO SCH (09:00)
[2021-04-22 09:25] VITALS: PULSE 71; RESP 20; TEMP 97.7
[2021-04-22 12:55] VITALS: BP 123/76
--- NOTE | 2021-04-22 14:19 | CONS ---
CONSULTATION HISTORY OF PRESENT ILLNESS: Kim So is a 51-year-old morbidly obese lady with a diagnosis of hypertension, atypical chest pain, hypothyroidism, hyperlipidemia, and also COPD under the care of Dr. Benito. She came into the emergency room complaining of sharp pain in the chest. Pain was over her left anterior chest just below the clavicle, sharp in nature, lasted a few seconds on and off, but kept coming and going for a few hours. The duration of pain is about 5-10 seconds. Quality is atypical, musculoskeletal. These symptoms have resolved. She is asymptomatic when I evaluated her. Troponins are normal. She is resting comfortably without symptoms. Breathing is good. She does not have any other major complaints. Her D-dimer was elevated. She went on to have a CT angio which was also unremarkable. She is resting comfortably without symptoms at the time of my evaluation. PAST MEDICAL HISTORY: 1. Hypertension. 2. Hypothyroidism. 3. History of obesity. 4. History of anemia. 5. COPD under the care of Dr. Benito. MEDICATIONS: Medications at home include: Metoprolol tartrate 12.5 mg b.i.d., Lasix 40 mg daily, iron supplements, Lipitor 20 mg daily, aspirin 81 mg daily, lisinopril 10 mg daily, amlodipine benazepril combination 5/10 1 tab daily. ALLERGIES: She is allergic to SULFA and MORPHINE. PHYSICAL EXAMINATION: On examination, blood pressure 144/84, pulse rate is 71 per minute. HEENT unremarkable. Fundus was not examined by me. Neck is supple. No JVD. I do not hear a carotid bruit. HEART exam reveals S1, S2. Heart sounds are distant. LUNGS revealed decent air entry. ABDOMEN: Soft, distended. Lower EXTREMITIES reveal diminished pulses, trace edema. Central nervous system grossly no focal deficits. EKG revealed a sinus mechanism, left atrial abnormality and no significant ST-segment changes. LABORATORY DATA: Reveals normal troponins. IMPRESSION: 1. Atypical chest pain. 2. Morbid obesity. 3. Hypertension. 4. Hyperlipidemia. 5. History of chronic obstructive pulmonary disease with a past history of smoking. RECOMMENDATIONS: I am recommending no further workup is necessary from a cardiac standpoint. Patient can be discharged. She has an appointment to see Dr. Bowie in the office on the . I advised her to keep that appointment and outpatient stress testing can then be performed. Apparently last stress test was in 2018, but the details are not available at the time of my evaluation. I discussed my thoughts in detail with the patient. Thank you very much for the consult. FELIX / TRACEY: [id number] /
--- NOTE | 2021-04-22 18:12 | HP ---
HISTORY AND PHYSICAL I am covering for Dr. Li. CHIEF COMPLAINT: Chest pain. HISTORY OF PRESENT ILLNESS: This 51-year-old woman with a past medical history of multiple medical problems including COPD, asthma, CVA, TIA, hypertension, hyperlipidemia, history of DJD, hypothyroidism, was admitted with chest pain to [facility]. The pain was felt in the anterior part of chest, more than sharp in character without much radiation and patient came to [facility] for further evaluation and treatment. The D-dimer was elevated at 0.67 and the COVID-19 was negative. The patient did have a CT angio of the chest which showed no evidence of pulmonary embolism. Mild bronchial thickening was noted. There is no history of fever, rigors, chills at this time. PAST MEDICAL HISTORY: Asthma, COPD, history of hypertension, hyperlipidemia, DJD, history of pneumonia. MEDICATIONS: Home medications are reviewed include Zanaflex, Requip, Ambien, Effexor, Topamax, rizatriptan, Lyrica, potassium, Lopressor, Claritin, Synthroid, [place], Advair, Cymbalta, and doses reviewed. ALLERGIES: MORPHINE, SULFA. FAMILY HISTORY: History of cancer in the family. SOCIAL HISTORY: History of smoking. History of THC. REVIEW OF SYSTEMS: ENT: No diminished vision or hearing. CARDIOVASCULAR: As mentioned earlier. RESPIRATORY: As mentioned earlier. GI: As mentioned earlier. : No dysuria. NERVOUS SYSTEM: No numbness or weakness. ALLERGY/IMMUNOLOGY: As mentioned earlier. HEMATOLOGY: No history of anemia. ENDOCRINE: No history of diabetes or hypothyroidism. CONSTITUTIONAL: As mentioned earlier. DERMATOLOGY: Negative. RHEUMATOLOGY: Negative. PSYCHIATRY: As mentioned earlier. PHYSICAL EXAM: GENERAL: Patient is alert and oriented times three. VITAL SIGNS: Pulse 71, blood pressure 159/106, repeat 123/76, respirations 20, temperature 97.7, pulse ox 92% on 2 liters. HEENT: Conjunctivae normal. NECK: No jugular venous distention. No carotid bruits. No lymph node enlargement. RESPIRATORY: Breath sounds diminished at the bases. No rhonchi, no crackles. HEART: S1 and S2, muffled. ABDOMEN: Soft, no tenderness. No masses palpable. EXTREMITIES: No edema, no swelling. NERVOUS: Higher functions as mentioned earlier. Moves all four limbs. No focal motor or sensory deficits. LYMPHATICS: No lymph nodes palpable in the neck or axillae. SKIN: No rashes. JOINTS: No active deforming arthropathy. LABS: At this time shows WBC 7.2, hemoglobin 12.9, MCV noted. D-dimer is noted. Other the labs are noted. ASSESSMENT: 1. Chest pain possible unstable angina. Myocardial infarction ruled out. 2. Elevated D-dimer without any evidence of pulmonary embolism. 3. History of asthma and COPD. 4. History of cerebrovascular accident, transient ischemic attack. 5. Hypertension. 6. Hyperlipidemia. 7. History of degenerative joint disease. 8. History of pneumonia. 9. History hypothyroidism. 10.History of RSD. 11.History of possible multiple sclerosis. 12.Appendectomy. 13.History of cholecystectomy. 14.History of anxiety, depression, claustrophobia. 15.History nicotine dependence. 16.Obesity with body mass index of . RECOMMENDATION AND DISCUSSION: In this 51-year-old woman who presented with multiple medical issues, at this time, the patient improved significantly and myocardial infarction ruled out. Cardiology saw the patient and recommended outpatient followup. I would recommend to continue the current medications and home medications and follow up with Dr. Bowie in the outpatient setting for possible outpatient stress test. Otherwise, the prognosis is guarded however is stable. Patient is stable at this time. The patient will be discharged. Please refer to the discharge reconciliation sheet for list of medications. Follow with Dr. Benito as recommended for lung issues. MMODL / IJN: [id number] /
[2021-04-22] MEDS ORDERED: ATORVASTATIN 20 MG TAB PO SCH (21:00)
[2021-04-22] MEDS ORDERED: ARIPiprazole 5 MG TAB PO SCH (21:00)
[2021-04-22] MEDS ORDERED: ZOLPIDEM 5 MG TAB PO SCH (21:00)
[2021-04-23] MEDS ORDERED: ASPIRIN 325 MG TAB PO SCH (09:00)
== END 2021-04-22 13:00 | disposition home or self-care (01) ==
LOC: EC 21:53 → 6NMEDSUR 04-22 01:12
PROVIDERS: ADMIT Internal Medicine; ATTEND Internal Medicine
DX: R07.89 Other chest pain (principal); R79.89 Other specified abnormal findings of blood chemistry; J44.9 Chronic obstructive pulmonary disease, unspecified; I10 Essential (primary) hypertension; E78.5 Hyperlipidemia, unspecified; G90.50 Complex regional pain syndrome I, unspecified; E03.9 Hypothyroidism, unspecified; G47.30 Sleep apnea, unspecified; M19.90 Unspecified osteoarthritis, unspecified site; G62.9 Polyneuropathy, unspecified; G43.909 Migraine, unspecified, not intractable, without status migrainosus; D64.9 Anemia, unspecified; F40.240 Claustrophobia; F32.9 Major depressive disorder, single episode, unspecified; F41.9 Anxiety disorder, unspecified; F17.200 Nicotine dependence, unspecified, uncomplicated; E66.01 Morbid (severe) obesity due to excess calories; Z68.43 Body mass index [BMI] 50.0-59.9, adult; Z20.822 Contact with and (suspected) exposure to COVID-19; Z79.51 Long term (current) use of inhaled steroids; Z79.82 Long term (current) use of aspirin; Z79.899 Other long term (current) drug therapy; Z88.2 Allergy status to sulfonamides; Z88.5 Allergy status to narcotic agent; Z86.73 Personal history of transient ischemic attack (TIA), and cerebral infarction without residual deficits; Z87.01 Personal history of pneumonia (recurrent); Z90.49 Acquired absence of other specified parts of digestive tract; Z98.891 History of uterine scar from previous surgery; Z98.890 Other specified postprocedural states; Z83.3 Family history of diabetes mellitus; Z80.9 Family history of malignant neoplasm, unspecified
CPT/HCPCS: 99285; 36415; 94640 ×2; 93005; 85379; 83880; 80053; 82150; 83690; 83735; 84484 ×2; 85025; 85610; 85730; 81025; 87635; 71046; 71275; G0378; Q9967

== ENCOUNTER 2021-05-29 12:38 | Inpatient (IN) | payer OTHER ==
[2021-05-29] MEDS ORDERED: IPRATROPIUM-ALBUTEROL 3 ML NEB INHALATION STA (13:00)
--- NOTE | 2021-05-29 13:07 | ED ---
General Adult HPI - General Chief complaint: Shortness of Breath Stated complaint: Diff Breathing Time Seen by Provider: 05/29/21 12:45 Source: patient, RN notes reviewed, old records reviewed Mode of arrival: ambulatory Limitations: no limitations - History of Present Illness Initial comments: This is a 51-year-old female who comes into the emergency pertinent stating that she has a past medical history significant for COPD and continues to smoke. P atient states she's been short of breath the last 3 days and she also was noted at the same period of time her abdomen is getting more more distended and it appears that has some edema as well she states. Patient denies any chest pain or palpitations. Patient denies any fever chills or cough. Patient denies any significant edema to the legs. Patient denies any calf pain. Patient states she believes this happen once before which doesn't with the diagnosis was. Patient doesn't take any breathing treatments at home. - Related Data Home Medications Medication Instructions Recorded Confirmed Butalb/APAP/Caff 50-325-40Mg 1 tab PO Q8HR PRN 05/22/17 04/21/21 [Fioricet 50-325-40] DULoxetine HCL [Cymbalta] 60 mg PO HS 05/22/17 04/21/21 Ibuprofen 800 mg PO BID PRN 05/22/17 04/21/21 Topiramate [Topamax] 100 mg PO BID 05/22/17 04/21/21 Pregabalin [Lyrica] 150 mg PO TID 01/12/18 04/21/21 Aspirin EC [Ecotrin Low Dose] 81 mg PO DAILY 06/06/18 04/21/21 Loratadine [Claritin] 10 mg PO DAILY 06/06/18 04/21/21 Albuterol Sulfate [Proair Hfa] 1 - 2 puff INHALATION Q4HR PRN 08/18/19 04/21/21 HYDROcodone/APAP 10-325MG [[place] 1 tab PO TID PRN 08/18/19 04/21/21 10-325] ARIPiprazole [Abilify] 5 mg PO HS 04/27/20 04/21/21 Atorvastatin [Lipitor] 20 mg PO HS 04/27/20 04/21/21 Metoprolol Tartrate [Lopressor] 12.5 mg PO BID 04/27/20 04/21/21 Rizatriptan Benzoate [Rizatriptan] 10 mg PO DAILY PRN 04/27/20 04/21/21 Venlafaxine HCl ER [Effexor XR] 37.5 mg PO DAILY 04/27/20 04/21/21 Zolpidem [Ambien] 10 mg PO HS 04/27/20 04/21/21 amLODIPine BESYLATE/BENAZEPRIL 1 tab PO DAILY 04/27/20 04/21/21 [amLODIPine BESYLATE/BENAZEPRIL 5-10 MG] Ferrous Sulfate [Iron (65 MG 325 mg PO BID 04/21/21 04/21/21 Elemental)] Fluticasone/Salmeterol [Advair 1 puff INHALATION RT-BID 04/21/21 04/21/21 500-50 Diskus] Furosemide [Lasix] 40 mg PO DAILY 04/21/21 04/21/21 Levothyroxine Sodium [Synthroid] 50 mcg PO DAILY 04/21/21 04/21/21 Potassium Chloride 10 meq PO DAILY 04/21/21 04/21/21 rOPINIRole HCL [Requip] 1 mg PO HS 04/21/21 04/21/21 tiZANidine [Zanaflex] 4 mg PO BID PRN 04/21/21 04/21/21 Previous Rx's Medication Instructions Recorded lisinopriL [Zestril] 10 mg PO DAILY #30 tab 04/22/21 Allergies Allergy/AdvReac Type Severity Reaction Status Date / Time morphine Allergy Itching/hiv Verified 05/29/21 12:43 es/sob Sulfa (Sulfonamide Allergy RAPID Verified 05/29/21 12:43 Antibiotics) HEART RATE AND HIVES Review of Systems ROS Statement: Those systems with pertinent positive or pertinent negative responses have been documented in the HPI. ROS Other: All systems not noted in ROS Statement are negative. Past Medical History Past Medical History: Asthma, COPD, CVA/TIA, Hyperlipidemia, Hypertension, Osteoarthritis (OA), Pneumonia, Sleep Apnea/CPAP/BIPAP, Thyroid Disorder Additional Past Medical History / Comment(s): RSD dx 2012 lesions on brain,"memory issues" possible MS no definitive dx as of yet, peripheral neuropathy-diogenes feet/legs arms, migraines, murmur, occular hypertension, probably stroke-no residual effects, "top part of heart beats slower that the bottom", no cpap used, uses oxygen at night and PRN, anemia, this surgery was rescheduled from Oct. due to cold sx but resolved now History of Any Multi-Drug Resistant Organisms: None Reported Past Surgical History: Appendectomy, Section, Cholecystectomy, Heart Catheterization, Orthopedic Surgery Additional Past Surgical History / Comment(s): diogenes carpal tunnel, left cubital tunnel, d&c, spinal puncture, knee surgery Past Anesthesia/Blood Transfusion Reactions: Motion Sickness Additional Past Anesthesia/Blood Transfusion Reaction / Comment(s): claustrophobia. "has had blood in past-no reaction" Past Psychological History: Anxiety, Depression Smoking Status: Current every day smoker Past Alcohol Use History: None Reported Past Drug Use History: None Reported - Past Family History Father Family Medical History: Cancer Brother(s) Family Medical History: Diabetes Mellitus General Exam - General Exam Comments Initial Comments: GENERAL: Patient is well-developed and well-nourished. Patient is nontoxic and well-hydrated and is in mild distress. ENT: Neck is soft and supple. No significant lymphadenopathy is noted. Oropharynx is clear. Moist mucous membranes. Neck has full range of motion without eliciting any pain. EYES: The sclera were anicteric and conjunctiva were pink and moist. Extraocular movements were intact and pupils were equal round and reactive to light. Eyelids were unremarkable. PULMONARY: Unlabored respirations. Good breath sounds bilaterally. Patient has decreased breath sounds but no wheezing is noted CARDIOVASCULAR: There is a regular rate and rhythm without any murmurs gallops or rubs. ABDOMEN: Soft and nontender with normal bowel sounds. Patient's abdomen is very distend ed and there is some slight edema to SKIN: Skin is clear with no lesions or rashes and otherwise unremarkable. NEUROLOGIC: Patient is alert and oriented x3. Cranial nerves II through XII are grossly intact. Motor and sensory are also intact. Normal speech, volume and content. Symmetrical smile. MUSCULOSKELETAL: Normal extremities with adequate strength and full range of motion. No lower e xtremity swelling or edema. No calf tenderness. LYMPHATICS: No significant lymphadenopathy is noted PSYCHIATRIC: Normal psychiatric evaluation. Limitations: no limitations Course Vital Signs 05/29/21 05/29/21 05/29/21 12:40 13:55 14:02 Temperature 97.8 F Pulse Rate 85 76 82 Respiratory 24 Rate Blood Pressure 129/84 O2 Sat by Pulse 88 L Oximetry 05/29/21 15:18 Temperature Pulse Rate 84 Respiratory 20 Rate Blood Pressure 146/91 O2 Sat by Pulse 91 L Oximetry Medical Decision Making - Medical Decision Making EKG shows normal sinus rhythm at 85 bpm MO interval is 136 dresses 78 QT interval 374 QTC is 445 per patient's EKG shows no ST segment elevation or depression. CT of the chest and abdomen both show significant third spacing with some mild ascites in the abdomen. Patient may have some mild CHF as well. No PE is noted. I spoke with [facility] Dr. Rodney and he agreed to admit the patient admitted the patient wrote admitting orders - Lab Data Result diagrams: 05/29/21 13:12 05/29/21 13:12 Lab Results 05/29/21 05/29/21 05/29/21 Range/Units 13:12 13:12 13:12 WBC 5.5 (3.8-10.6) k/uL RBC 5.64 H (3.80-5.40) m/uL Hgb 11.7 (11.4-16.0) gm/dL Hct 43.3 (34.0-46.0) % MCV 76.8 L (80.0-100.0) fL MCH 20.8 L (25.0-35.0) pg MCHC 27.0 L (31.0-37.0) g/dL RDW 18.5 H (11.5-15.5) % Plt Count 212 (150-450) k/uL MPV 9.8 Neutrophils % 72 % Lymphocytes % 18 % Monocytes % 6 % Eosinophils % 1 % Basophils % 1 % Neutrophils # 4.0 (1.3-7.7) k/uL Lymphocytes # 1.0 (1.0-4.8) k/uL Monocytes # 0.3 (0-1.0) k/uL Eosinophils # 0.1 (0-0.7) k/uL Basophils # 0.1 (0-0.2) k/uL Hypochromasia Marked Poikilocytosis Slight Anisocytosis Slight Microcytosis Slight PT 10.0 (9.0-12.0) sec INR 0.9 (<1.2) APTT 21.9 L (22.0-30.0) sec D-Dimer 1.28 H (<0.60) mg/L FEU Sodium 138 (137-145) mmol/L Potassium 4.9 (3.5-5.1) mmol/L Chloride 101 (98-107) mmol/L Carbon Dioxide 37 H (22-30) mmol/L Anion Gap 0 mmol/L BUN 19 H (7-17) mg/dL Creatinine 0.46 L (0.52-1.04) mg/dL Est GFR (CKD-EPI)AfAm >90 (>60 ml/min/1.73 sqM) Est GFR (CKD-EPI)NonAf >90 (>60 ml/min/1.73 sqM) Glucose 98 (74-99) mg/dL Plasma Lactic Acid Judd (0.7-2.0) mmol/L Calcium 9.5 (8.4-10.2) mg/dL Magnesium 1.9 (1.6-2.3) mg/dL Total Bilirubin 0.3 (0.2-1.3) mg/dL AST 33 (14-36) U/L ALT 26 (4-34) U/L Alkaline Phosphatase 92 (38-126) U/L Troponin I (0.000-0.034) ng/mL NT-Pro-B Natriuret Pep pg/mL Total Protein 6.4 (6.3-8.2) g/dL Albumin 3.6 (3.5-5.0) g/dL 05/29/21 05/29/21 05/29/21 Range/Units 13:12 13:12 13:12 WBC (3.8-10.6) k/uL RBC (3.80-5.40) m/uL Hgb (11.4-16.0) gm/dL Hct (34.0-46.0) % MCV (80.0-100.0) fL MCH (25.0-35.0) pg MCHC (31.0-37.0) g/dL RDW (11.5-15.5) % Plt Count (150-450) k/uL MPV Neutrophils % % Lymphocytes % % Monocytes % % Eosinophils % % Basophils % % Neutrophils # (1.3-7.7) k/uL Lymphocytes # (1.0-4.8) k/uL Monocytes # (0-1.0) k/uL Eosinophils # (0-0.7) k/uL Basophils # (0-0.2) k/uL Hypochromasia Poikilocytosis Anisocytosis Microcytosis PT (9.0-12.0) sec INR (<1.2) APTT (22.0-30.0) sec D-Dimer (<0.60) mg/L FEU Sodium (137-145) mmol/L Potassium (3.5-5.1) mmol/L Chloride (98-107) mmol/L Carbon Dioxide (22-30) mmol/L Anion Gap mmol/L BUN (7-17) mg/dL Creatinine (0.52-1.04) mg/dL Est GFR (CKD-EPI)AfAm (>60 ml/min/1.73 sqM) Est GFR (CKD-EPI)NonAf (>60 ml/min/1.73 sqM) Glucose (74-99) mg/dL Plasma Lactic Acid Judd 0.7 (0.7-2.0) mmol/L Calcium (8.4-10.2) mg/dL Magnesium (1.6-2.3) mg/dL Total Bilirubin (0.2-1.3) mg/dL AST (14-36) U/L ALT (4-34) U/L Alkaline Phosphatase (38-126) U/L Troponin I <0.012 (0.000-0.034) ng/mL NT-Pro-B Natriuret Pep 311 pg/mL Total Protein (6.3-8.2) g/dL Albumin (3.5-5.0) g/dL Disposition Clinical Impression: Congestive heart failure, Anasarca, Dyspnea Disposition: ADMITTED IP TO THIS HOSP Referrals: Erickson Li DO [Primary Care Provider] - 1-2 days Time of Disposition: 16:12
[2021-05-29 13:33] LABS: Anisocytosis Slight; Basophils # (A) 0.1 k/uL (0-0.2); Basophils % (A) 1 %; Eosinophils # (A) 0.1 k/uL (0-0.7); Eosinophils % (A) 1 %; HCT 43.3 % (34.0-46.0); HGB 11.7 gm/dL (11.4-16.0); Hypochromasia Marked; Lymphocytes % (A) 18 %; MCH 20.8 pg (25.0-35.0); MCV 76.8 fL (80.0-100.0); Mean Platelet Volume 9.8; Microcytosis Slight; Monocytes # (A) 0.3 k/uL (0-1.0); Monocytes % (A) 6 %; Neutrophils % (A) 72 %; Platelet Count 212 k/uL (150-450); Poikilocytosis Slight; RBC 5.64 m/uL (3.80-5.40); RDW 18.5 % (11.5-15.5); WBC 5.5 k/uL (3.8-10.6)
[2021-05-29 13:41] LABS: ALT 26 U/L (4-34); AST 33 U/L (14-36); African American GFR (CKD) >90 (>60 ml/min/1.73 sqM); Albumin 3.6 g/dL (3.5-5.0); Alkaline Phosphatase 92 U/L (38-126); Anion Gap 0 mmol/L; Blood Urea Nitrogen 19 mg/dL (7-17); Calcium 9.5 mg/dL (8.4-10.2); Carbon Dioxide 37 mmol/L (22-30); Chloride 101 mmol/L (98-107); Glucose 98 mg/dL (74-99); Magnesium 1.9 mg/dL (1.6-2.3); Non-African American GFR(CKD) >90 (>60 ml/min/1.73 sqM); Potassium 4.9 mmol/L (3.5-5.1); Sodium 138 mmol/L (137-145); Total Bilirubin 0.3 mg/dL (0.2-1.3); Total Protein 6.4 g/dL (6.3-8.2)
[2021-05-29 13:53] LABS: INR 0.9 (<1.2)
[2021-05-29 13:56] LABS: D-Dimer 1.28 mg/L FEU (<0.60)
[2021-05-29 13:57] LABS: Partial Thromboplastin Time 21.9 sec (22.0-30.0)
--- NOTE | 2021-05-29 14:25 | XR ---
EXAMINATION TYPE: XR chest 2V DATE OF EXAM: 05/29/2021 COMPARISON: 04/21/2021 HISTORY: Difficulty breathing TECHNIQUE: Frontal and lateral views of the chest are obtained. FINDINGS: Low lung volumes. Multiple overlying leads. Heart size is enlarged. Perihilar and intersti tial prominence suggestive of edema. Possible small left pleural effusion. No right pleural effusion. Degenerative changes of the spine. IMPRESSION: 1. Cardiomegaly and pulmonary are social prominence is most suggestive of edema. Probable small left pleural effusion. Consider early congestive heart failure.
--- NOTE | 2021-05-29 14:56 | CT ---
EXAMINATION TYPE: CT abdomen pelvis w con DATE OF EXAM: 05/29/2021 COMPARISON: 05/20/2017 HISTORY: 51-year-old female Abdominal bloating. TECHNIQUE: Contiguous axial scanning of the abdomen and pelvis following administration of 100 ml Omn ipaque 300 IV contrast. Delayed images through the kidneys and coronal/sagittal reconstructions perf ormed. CT DLP: 1297.6 mGycm Automated exposure control for dose reduction was used. FINDINGS: Chest reported separately. New generalized anasarca changes with a dependent body wall edema. Partially visualized small right p leural effusion. New mild perihepatic and interloop ascites. Liver borderline enlarged at 17.9 cm. Stable nonspecific capsular calcifications along the right side of the liver. Portal venous system appears patent. No biliary ductal dilatation. Cholecystectomy clips. Adrenal glands, spleen, pancreas show no gross abnormality. No excretion of contrast on the delayed kidney images. Correlation should be obtained to exclude acut e kidney injury. Tiny 8mm anterior left mid pole hypodensity of the left kidney is unchanged from 201 7 suggesting a tiny cyst. No dilated small bowel or free air. Mild stool burden. Sigmoid diverticulosis. No pericolonic inflammatory change. Bladder partially distended. Uterus anteverted. Both ovaries are visualized. No abnormal fluid collec tion in the pelvis or pelvic lymphadenopathy seen. Bones: Moderate to advanced degenerative disc disease L5-S1. No osseous structure process. IMPRESSION: 1. CHEST REPORTED SEPARATELY. 2. NEW GENERALIZED ANASARCA CHANGE, PARTIALLY VISUALIZED SMALL RIGHT PLEURAL EFFUSION, AND NEW MILD A BDOMINAL ASCITES. CORRELATE FOR THIRD SPACING/FLUID OVERLOAD STATE. 3. NO EXCRETION OF CONTRAST ON THE DELAYED KIDNEY IMAGES. CORRELATE WITH BUN/CREATININE TO EXCLUDE AC SHOSHONE-PAIUTE KIDNEY INJURY. 4. SIGMOID DIVERTICULOSIS WITHOUT ACUTE DIVERTICULITIS.
--- NOTE | 2021-05-29 15:05 | CT ---
EXAMINATION TYPE: CT chest angio for PE DATE OF EXAM: 05/29/2021 COMPARISON: 04/22/2021 HISTORY: 51-year-old female shortness of breath, Difficulty breathing, elevated d-dimer. TECHNIQUE: Contiguous axial scanning of the chest performed with IV Contrast, patient injected with 1 00 mL of Isovue 370. Coronal/sagittal MIP reconstructions performed. CT DLP: 828.4 mGycm Automated exposure control for dose reduction was used. FINDINGS: Heart is mildly enlarged. No pericardial effusion. No flattening of the interventricular septum thoug h there is mild reflux of contrast into the hepatic veins and some dilatation of the right side of th e heart. Aorta normal caliber. Streak artifact obscures the arch vessel origins. Generalized anasarca change. No thoracic lymphadenopathy. While there is satisfactory opacification of the pulmonary arterial system, prominent artifacts are p resent due to large patient body habitus and some breathing motion. No definite pulmonary embolus is seen. New small right and trace left pleural effusions. Patchy changes in the lower lungs and mild central bronchial wall thickening noted. Some volume loss and atelectasis medial right base adjacent to the pleural effusion. Abdomen reported separately. Bones: No osseous destructive process. Mild anterior plate spondylosis lower thoracic spine. IMPRESSION: 1. LIMITATIONS DUE TO SOME BREATHING MOTION AND ARTIFACT FROM LARGE BODY HABITUS. NO DEFINITE PULMONA RY EMBOLUS. 2. MILD CARDIOMEGALY WITH SMALL RIGHT AND TRACE LEFT EFFUSION AND SOME PATCHY DENSITIES IN THE LOWER LUNGS. GENERALIZED ANASARCA. CORRELATE FOR THIRD SPACING/FLUID OVERLOAD STATE OR MILD CHF. 3. ABDOMEN REPORTED SEPARATELY.
[2021-05-29] MEDS ORDERED: IPRATROPIUM-ALBUTEROL 3 ML NEB INHALATION PRN (18:32)
[2021-05-29] MEDS: DULoxetine HCL 60 MG CAPSULE.DR PO SCH (21:03)
[2021-05-29] MEDS: PREGABALIN 75 MG CAP PO SCH (21:03)
[2021-05-29] MEDS: METOPROLOL TARTRATE 12.5 MG TAB PO SCH (21:03)
[2021-05-29] MEDS: ATORVASTATIN 20 MG TAB PO SCH (21:03)
[2021-05-29] MEDS: TOPIRAMATE 100 MG TAB PO SCH (21:03)
[2021-05-29] MEDS: ZOLPIDEM 5 MG TAB PO SCH (21:03)
[2021-05-29] MEDS: ARIPiprazole 5 MG TAB PO SCH (21:04)
--- NOTE | 2021-05-29 22:04 | P.HPIM ---
History of Present Illness H&P Date: 05/29/21 Chief Complaint: SOB Patient is a 51-year-old female with history of COPD on oxygen 3 L via nasal cannula, reflex sympathetic dystrophy, hypertension, hypothyroidism, osteoart hritis, hyperlipidemia, obstructive sleep apnea on CPAP and bilateral peripheral neuropathy and history of previous stroke, anxiety/depression currently everyday smoker and other multiple medical problems presents to ER with complaints of shortness of breath and abdominal wall distention for the past 2 to 3 days. Patient is also complaining of leg swelling. Patient states that her symptoms started about 2 to 3 days and is gradually getting worse which made her to come to ER. Denies any complaints of chest pain. No fever no chills. No cough or sputum production. No headache or dizziness or lightheadedness. Patient does smoke on a daily basis but quit recently. Denies any alcohol use. No history of prior liver disease. Chest x-ray showed cardiomegaly and pulmonary vascular prominence is most suggestive of edema. Probable small left pleural effusion. Consider early CHF. CT of the abdomen pelvis showed new generalized anasarca change. Sigmoid diverticulosis without acute diverticulitis. CT angiogram of the chest was done due to elevated D-dimer level showed limitation due to small breathing motion and artifact from large body habitus. No definite PE. Mild cardiomegaly with small right and trace left effusion and some patchy densities in the lower lungs. Generalized anasarca. Correlate for third spacing/fluid overload state and of mild CHF. Laboratory data showed WBC 5.5 hemoglobin 11.7 and platelets 212 MCV 76.8 and RDW 18.5 D-dimer level is 1.28 BUN 19 and creatinine 0.46 bicarb of 37 proBNP 311 Troponin x2 - Liver enzymes are not elevated Albumin 3.6 EKG showed normal sinus rhythm with no ST segment elevation or depression. Review of Systems Constitutional: Patient denies any fever or chills . No generalized weakness or weight loss. Abdomen: Patient does complain of abdominal distention. No pain. No nausea vomiting or diarrhea. Cardiovascular: Patient was shortness of breath. No chest pain. Increasing leg swelling. Orthopnea and no PND.no palpitations. Respiratory: patient denied any cough or sputum production. No shortness of breath Neurologic: Patient denied any numbness or tingling headache. Musculoskeletal: Patient denies any complaints of joint swelling or deformity. Skin: Negative Psychiatric: Negative Endocrine: No heat or cold intolerance. No recent weight gain. Genitourinary: No dysuria or hematuria. All other 14 point ROS negative except the above Past Medical History Past Medical History: Asthma, COPD, CVA/TIA, Hyperlipidemia, Hypertension, Osteoarthritis (OA), Pneumonia, Sleep Apnea/CPAP/BIPAP, Thyroid Disorder Additional Past Medical History / Comment(s): RSD dx 2012 lesions on brain,"memory issues" possible MS no definitive dx as of yet, peripheral neuropathy-diogenes feet/legs arms, migraines, murmur, occular hypertension, probably stroke-no residual effects, "top part of heart beats slower that the bottom", no cpap used, uses oxygen at night and PRN, anemia, this surgery was rescheduled from Oct. due to cold sx but resolved now History of Any Multi-Drug Resistant Organisms: None Reported Past Surgical History: Appendectomy, Section, Cholecystectomy, Heart Ca theterization, Orthopedic Surgery Additional Past Surgical History / Comment(s): diogenes carpal tunnel, left cubital tunnel, d&c, spinal puncture, knee surgery Past Anesthesia/Blood Transfusion Reactions: Motion Sickness Additional Past Anesthesia/Blood Transfusion Reaction / Comment(s): claustrophobia. "has had blood in past-no reaction" Past Psychological History: Anxiety, Depression Smoking Status: Current every day smoker Past Alcohol Use History: None Reported Past Drug Use History: None Reported - Past Family History Father Family Medical History: Cancer Brother(s) Family Medical History: Diabetes Mellitus Medications and Allergies Home Medications Medication Instructions Recorded Confirmed Type Butalb/APAP/Caff 50-325-40Mg 1 tab PO Q8HR PRN 05/22/17 05/29/21 History [Fioricet 50-325-40] DULoxetine HCL [Cymbalta] 60 mg PO HS 05/22/17 05/29/21 History Ibuprofen 800 mg PO TID 05/22/17 05/29/21 History Topiramate [Topamax] 100 mg PO BID 05/22/17 05/29/21 History Pregabalin [Lyrica] 150 mg PO TID 01/12/18 05/29/21 History Aspirin EC [Ecotrin Low Dose] 81 mg PO DAILY 06/06/18 05/29/21 History Loratadine [Claritin] 10 mg PO DAILY 06/06/18 05/29/21 History HYDROcodone/APAP 10-325MG [[place] 1 tab PO TID PRN 08/18/19 05/29/21 History 10-325] ARIPiprazole [Abilify] 5 mg PO HS 04/27/20 05/29/21 History Atorvastatin [Lipitor] 20 mg PO HS 04/27/20 05/29/21 History Metoprolol Tartrate [Lopressor] 12.5 mg PO BID 04/27/20 05/29/21 History Venlafaxine HCl ER [Effexor XR] 37.5 mg PO DAILY 04/27/20 05/29/21 History Zolpidem [Ambien] 10 mg PO HS 04/27/20 05/29/21 History amLODIPine BESYLATE/BENAZEPRIL 1 tab PO DAILY 04/27/20 05/29/21 History [amLODIPine BESYLATE/BENAZEPRIL 5-10 MG] Ferrous Sulfate [Iron (65 MG 325 mg PO BID 04/21/21 05/29/21 History Elemental)] Fluticasone/Salmeterol [Advair 1 puff INHALATION RT-BID 04/21/21 05/29/21 History 500-50 Diskus] Furosemide [Lasix] 40 mg PO DAILY 04/21/21 05/29/21 History Levothyroxine Sodium [Synthroid] 50 mcg PO DAILY 04/21/21 05/29/21 History Potassium Chloride 10 meq PO DAILY 04/21/21 05/29/21 History rOPINIRole HCL [Requip] 1 mg PO HS 04/21/21 05/29/21 History tiZANidine [Zanaflex] 4 mg PO BID PRN 04/21/21 05/29/21 History Albuterol Sulfate [Albuterol 2 puff PO RT-Q4H PRN 05/29/21 05/29/21 History Sulfate Hfa] Verapamil HCl [Verapamil ER] 180 mg PO DAILY 05/29/21 05/29/21 History Allergies Allergy/AdvReac Type Severity Reaction Status Date / Time morphine Allergy Itching/hiv Verified 05/29/21 16:29 es/sob peach Allergy Rash/Hives Verified 05/29/21 16:36 pear Allergy Rash/Hives Verified 05/29/21 16:36 Sulfa (Sulfonamide Allergy RAPID Verified 05/29/21 16:29 Antibiotics) HEART RATE AND HIVES Physical Exam Vitals: Vital Signs Temp Pulse Resp BP Pulse Ox 05/29/21 18:36 98.6 F 77 20 145/82 98 05/29/21 15:18 84 20 146/91 91 L 05/29/21 14:02 82 05/29/21 13:55 76 05/29/21 12:40 97.8 F 85 24 129/84 88 L Intake and Output 05/29/21 05/29/21 05/29/21 06:59 14:59 22:59 Other: Weight 156.489 kg PHYSICAL EXAMINATION: Patient is lying in the bed comfortably, no acute distress, awake alert and oriented.. Morbidly obese HEENT: Normocephalic. Neck is supple. Pupils reactive. Nostrils clear. Oral cavity is moist. Ears reveal no drainage. Neck reveals no JVD, carotid bruits, or thyromegaly. CHEST EXAMINATION: Trachea is central. Symmetrical expansion.Bilateral mild expiratory wheezing. No rhonchi. Bibasilar diminished air entry. CARDIAC: Normal S1, S2 with no gallops. No murmurs ABDOMEN: Soft. Bowel sounds normal. No organomegaly. No abdominal bruits. Increased abdominal girth. Extremities: 4+ bilateral edema.. No clubbing or cyanosis Neurologically awake, alert, oriented x3 with well-coordinated movements. No focal deficits noted Skin: No rash or skin lesions. Psychiatric: Coperative. Nonsuicidal Musculoskeletal: No joint swelling or deformity. Normal range of motion. Results CBC & Chem 7: 05/30/21 07:23 05/30/21 07:23 Labs: Abnormal Lab Results - Last 24 Hours (Table) 05/29/21 05/29/21 05/29/21 Range/Units 13:12 13:12 13:12 RBC 5.64 H (3.80-5.40) m/uL MCV 76.8 L (80.0-100.0) fL MCH 20.8 L (25.0-35.0) pg MCHC 27.0 L (31.0-37.0) g/dL RDW 18.5 H (11.5-15.5) % APTT 21.9 L (22.0-30.0) sec D-Dimer 1.28 H (<0.60) mg/L FEU Carbon Dioxide 37 H (22-30) mmol/L BUN 19 H (7-17) mg/dL Creatinine 0.46 L (0.52-1.04) mg/dL Thrombosis Risk Factor Assmnt - DVT/VTE Prophylaxis DVT/VTE Prophylaxis: Pharmacologic Prophylaxis ordered Assessment and Plan Assessment: Increased abdominal distention and anasarca due to fluid overload. Acute CHF. EF unknown. Acute on chronic hypoxic and hypercapnic respiratory failure on 3 L oxygen via nasal cannula COPD exacerbation Elevated D-dimer level. CTA chest negative for PE. Microcytic anemia with hemoglobin 11.7 Hypertension Hyperlipidemia Obstructive sleep apnea on CPAP Hypothyroidism History of CVA/TIA with no residual weakness Anxiety/depression Current everyday smoker Chronic pain Reflex sympathetic dystrophy Morbid obesity with BMI 61.1 Bilateral peripheral neuropathy nondiabetic Restless leg syndrome DVT prophylaxis with heparin subcu Plan: Patient be continued monitoring. Continue with IV Lasix 20 mg every 8 hourly and monitor renal function. Strict I&O's. Continue with duo nebs Continue with home medications Synthroid pain management with [place] 10, 3 times daily as needed. 2D echocardiogram was ordered and cardiology and pulmonary was consulted. Continue to follow closely and prognosis is guarded at this time. Time with Patient: Greater than 30
[2021-05-29] MEDS: SYMBICORT 160-4.5 MCG INHALER INHALATION SCH (22:24)
[2021-05-29] MEDS: FUROSEMIDE 10 MG/ML 2 ML VIAL IV SCH (23:11)
[2021-05-29] MEDS: HEPARIN SODIUM,PORCINE/PF 5,000 UNIT/0.5 ML SYRINGE SQ SCH (23:11)
[2021-05-30] MEDS: LEVOTHYROXINE 50 MCG TAB PO SCH (06:07)
[2021-05-30] MEDS: SYMBICORT 160-4.5 MCG INHALER INHALATION SCH ×2 (07:34→18:52)
[2021-05-30 08:17] LABS: Anisocytosis Slight; Basophils # (A) 0.1 k/uL (0-0.2); Basophils % (A) 1 %; Eosinophils # (A) 0.1 k/uL (0-0.7); Eosinophils % (A) 1 %; HCT 42.7 % (34.0-46.0); HGB 11.7 gm/dL (11.4-16.0); Hypochromasia Marked; Lymphocytes # (A) 0.9 k/uL (1.0-4.8); Lymphocytes % (A) 15 %; MCH 21.2 pg (25.0-35.0); MCHC 27.3 g/dL (31.0-37.0); MCV 77.4 fL (80.0-100.0); Mean Platelet Volume 7.7; Microcytosis Slight; Monocytes # (A) 0.4 k/uL (0-1.0); Monocytes % (A) 6 %; Neutrophils # (A) 4.7 k/uL (1.3-7.7); Neutrophils % (A) 76 %; Platelet Count 187 k/uL (150-450); Poikilocytosis Slight; RBC 5.52 m/uL (3.80-5.40); RDW 18.4 % (11.5-15.5); WBC 6.2 k/uL (3.8-10.6)
[2021-05-30 08:21] LABS: African American GFR (CKD) >90 (>60 ml/min/1.73 sqM); Anion Gap 1 mmol/L; Blood Urea Nitrogen 18 mg/dL (7-17); Calcium 9.7 mg/dL (8.4-10.2); Carbon Dioxide 38 mmol/L (22-30); Chloride 99 mmol/L (98-107); Glucose 120 mg/dL (74-99); Non-African American GFR(CKD) >90 (>60 ml/min/1.73 sqM); Potassium 5.1 mmol/L (3.5-5.1); Sodium 138 mmol/L (137-145)
[2021-05-30] MEDS: FUROSEMIDE 10 MG/ML 2 ML VIAL IV SCH (08:41)
[2021-05-30] MEDS: TOPIRAMATE 100 MG TAB PO SCH ×2 (08:41→20:09)
[2021-05-30] MEDS: HEPARIN SODIUM,PORCINE/PF 5,000 UNIT/0.5 ML SYRINGE SQ SCH ×3 (08:41→23:08)
[2021-05-30] MEDS: VERAPAMIL SR 180 MG TABLET.ER PO SCH (08:41)
[2021-05-30] MEDS: BUTALB/APAP/CAFF 50-325-40MG TAB PO PRN ×2 (08:42→20:10)
[2021-05-30] MEDS: METOPROLOL TARTRATE 12.5 MG TAB PO SCH ×2 (08:42→20:09)
[2021-05-30] MEDS: VENLAFAXINE HCL ER 37.5 MG CAP PO SCH (08:42)
[2021-05-30] MEDS: PREGABALIN 75 MG CAP PO SCH ×3 (08:42→20:10)
[2021-05-30] MEDS: ASPIRIN 81 MG PO SCH (08:42)
[2021-05-30] MEDS: POTASSIUM CHLORIDE ER 10 MEQ TAB.ER.PRT PO SCH (08:43)
[2021-05-30] MEDS: FUROSEMIDE 10 MG/ML 4 ML VIAL IV SCH ×3 (08:49→20:12)
[2021-05-30 10:36] LABS: Appearance,Urine Clear (Clear); Bilirubin,Urine Negative (Negative); Blood,Urine Negative (Negative); Color,Urine Light Yellow; Glucose,Urine (UA) Negative (Negative); Ketones,Urine Negative (Negative); Leukocyte Esterase,Urine Negative (Negative); Nitrite,Urine Negative (Negative); Protein,Urine Negative (Negative); Specific Gravity,Urine 1.009 (1.001-1.035); Urobilinogen,Urine <2.0 mg/dL (<2.0)
--- NOTE | 2021-05-30 11:44 | ECHOF ---
Referral Reason:Short of breath MEASUREMENTS -------- HEIGHT: 160.0 cm WEIGHT: 164.2 kg BP: 147/88 IVSd: 1.1 cm (0.6 - 1.1) LVIDd: 4.3 cm (3.9 - 5.3) LVPWd: 1.0 cm (0.6 - 1.1) IVSs: 1.7 cm LVIDs: 3.3 cm LVPWs: 1.4 cm RAP: 5.00 mmHg RVSP: 56.07 mmHg FINDINGS -------- Sinus rhythm. This was a technically difficult study with suboptimal views. Left ventricular wall thickness is normal. Very difficult images. Unable to comment on LV function. The RV was not well visualized. The left atrium was not well visualized. The right atrium was not well visualized. 5.0mg of Lumason was utilized for enhancement of images The aortic valve was not well visualized. The mitral valve was not well visualized. The tricuspid valve was not well visualized. Moderate to severe tricuspid regurgitation present. There is severe pulmonary hypertension. The right ventricular systolic pressure, as measured by Dop pler, is 56.07mmHg. The pulmonic valve was not well visualized. IVC Not well visulized. There is no pericardial effusion. CONCLUSIONS -------- 1. Left ventricular wall thickness is normal. 2. Moderate to severe tricuspid regurgitation present. 3. There is severe pulmonary hypertension. 4. The right ventricular systolic pressure, as measured by Doppler, is 56.07mmHg. FINANCIAL RECORDING CLERK: Fariba Chiu RDCS
--- NOTE | 2021-05-30 11:51 | CONS ---
CONSULTATION CHIEF COMPLAINT: Abdominal distention. HISTORY OF PRESENT ILLNESS: Kim is a 51-year-old lady with history of COPD, hypothyroidism, hypertension, who presented to the hospital with progressively worsening abdominal distention, shortness of breath, and she is requiring oxygen supplement. She denies any chest pain. The patient apparently has seen Dr. Bowie in the office for a questionable congestive heart failure evaluation 2 years ago, had an echocardiogram and a stress test and was told that she does not have congestive heart failure. She had been recently re-evaluated and was told to undergo an echocardiogram and stress test. At the time of my evaluation this morning, she is sitting in bed, does not seem to be in respiratory distress, but she is somewhat of a poor historian and it is unclear whether the abdominal distention that she has is something that came on suddenly or she has been having it all along. I will try and get hold of her records from the outpatient setting. I will obtain a 2D echo and decide on further course of action. She has had 3 sets of troponins that are all negative. The D-dimer was elevated and she had a CTA of the chest that was negative for pulmonary embolism. She had an EKG that showed normal sinus rhythm with possible left atrial enlargement. Her hemoglobin is 11.7. Potassium is 5.1, creatinine 2.5. AST and ALT are within normal limits. Her BNP is normal at 311 and albumin is normal at 3.6. PAST MEDICAL HISTORY: Significant for hypertension, COPD, dyslipidemia. MEDICATIONS: Medications at home include aspirin, Lasix, albuterol, Claritin, K-Dur, Lyrica, Topamax, Effexor, Verapamil, Abilify, Cymbalta, Synthroid, Advair and Lotrel. ALLERGIES: THE PATIENT IS ALLERGIC TO MORPHINE AND SULFA. FAMILY HISTORY: Negative for premature coronary artery disease. SOCIAL HISTORY: She states that she quit smoking after many years of smoking. There is no history of EtOH abuse or drug abuse. REVIEW OF SYSTEMS: HEENT is unremarkable. CARDIAC as described above. RESPIRATORY as described above. GI significant for abdominal distention. GENITOURINARY negative. ALLERGY none. SKIN: Negative. MUSCULOSKELETAL negative. ENDOCRINE negative. DERM negative. CONSTITUTIONAL negative. ONCOLOGICAL negative. MANAGER SPORTS negative. Rest of the system review is not relevant. EXAM: VITAL SIGNS: Heart rate is 84 beats. Blood pressure is 138/84, respiratory rate is 18. O2 saturation is 93% on 5 L. NECK: There is no jugular venous distention. Carotid upstroke is normal. There is no bruit. CHEST exam reveals diminished air entry at the bases. HEART exam reveals first and second heart sounds. No gallop. No murmur. No rub. ABDOMEN appears distended. The patient has large ascites. Examination of the EXTREMITIES reveals mild edema. Peripheral pulses are palpable. EKG is as described above. Cardiac enzymes have been negative. CT scan of the chest is negative for pulmonary embolism. Patient had a CT scan of the abdomen that showed ascites and a small pleural effusion. CT scan of the chest showed mild cardiomegaly. ASSESSMENT: 1. Abdominal distention and generalized anasarca. 2. History of chronic obstructive pulmonary disease. 3. Hypertension. PLAN: The patient is not in congestive heart failure. Will treat her with IV diuretics. We will obtain an abdominal ultrasound and if she has significant ascites, consider a paracentesis both for diagnostic and therapeutic purposes. We will increase the dose of Lasix from 20-40 mg IV q8. MMODL / IJN: [id number] /
[2021-05-30 13:20] LABS: % Iron Saturation 3.85 (12.00-45.00); Iron 17 ug/dL (50-170); Total Iron Binding Capacity 442 ug/dL (228-460)
--- NOTE | 2021-05-30 13:44 | P.CNPUL ---
History of Present Illness Consult date: 05/30/21 Reason for consult: dyspnea History of present illness: This is a 51-year-old female patient, known to me from previous hospital admissions, as the patient is known to have COPD, chronic hypoxic respiratory failure and obstructive sleep apnea. She is morbidly obese and her body mass index is 64.3. She has also other comorbidities including RSD, hypertension and hyperlipidemia and osteoarthritis. The patient came in to the hospital because of worsening shortness of breath and abdominal distention a few days duration. She feels that she is getting more edematous in her abdomen is getting also more edematous and swallow. No fever. No chills. No significant cough or sputum production. No chest pain. Chest x-ray showed some cardiomegaly and mild four- vessel congestion. There is also probably a small left-sided pleural effusion. CAT scan of the abdomen showed generalized anasarca. CTA of the chest was done and it showed some small breathing motion artifact. No evidence of any pulmonary embolism. Patient is currently on Lasix with a dose of 40 mg every 12 hours. Troponin times is been negative. ProBNP level was 311. Renal function is stable creatinine of 0.4 and again of 19. Serum bicarb is 37, temp is 72 chronic hypercapnic respiratory failure. White cell count is not elevated. Review of Systems Constitutional: Reports weakness, Denies chills, Denies fever Eyes: denies blurred vision, denies pain Ears, nose, mouth and throat: Denies headache, Denies sore throat Cardiovascular: Denies chest pain, Denies shortness of breath Respiratory: Reports congestion, Reports cough with sputum, Reports dyspnea, Reports respiratory infections, Reports wheezing, Denies cough Gastrointestinal: Denies abdominal pain, Denies diarrhea, Denies nausea, Denies vomiting, increased abdominal distention Genitourinary: Denies dysuria, Denies hematuria Musculoskeletal: Denies myalgias Integumentary: Denies pruritus, Denies rash, increased swelling in lower extremities bilaterally Neurological: Reports headaches, Denies numbness, Denies weakness Psychiatric: Denies anxiety, Denies depression Endocrine: Denies fatigue, Denies weight change Past Medical History Past Medical History: Asthma, COPD, CVA/TIA, Hyperlipidemia, Hypertension, Osteoarthritis (OA), Pneumonia, Sleep Apnea/CPAP/BIPAP, Thyroid Disorder Additional Past Medical History / Comment(s): RSD dx 2013 lesions on brain,"memory issues" possible MS no definitive dx as of yet, peripheral neuropathy-diogenes feet/legs arms, migraines, murmur, occular hypertension, probably stroke-no residual effects, "top part of heart beats slower that the bottom", no cpap used, uses oxygen at night and PRN, anemia, this surgery was rescheduled from Oct. due to cold sx but resolved now History of Any Multi-Drug Resistant Organisms: None Reported Past Surgical History: Appendectomy, Section, Cholecystectomy, Heart Catheterization, Orthopedic Surgery Additional Past Surgical History / Comment(s): diogenes carpal tunnel, left cubital tunnel, d&c, spinal puncture, knee surgery Past Anesthesia/Blood Transfusion Reactions: Motion Sickness Additional Past Anesthesia/Blood Transfusion Reaction / Comment(s): claustrophobia. "has had blood in past-no reaction" Past Psychological History: Anxiety, Depression Additional Psychological History / Comment(s): claustrophobia Smoking Status: Current every day smoker Past Alcohol Use History: None Reported Additional Past Alcohol Use History / Comment(s): started smoking 1989, smokes 1 PPD Past Drug Use History: None Reported Additional Drug Use History / Comment(s): occ use - Past Family History Father Family Medical History: Cancer Brother(s) Family Medical History: Diabetes Mellitus Medications and Allergies Home Medications Medication Instructions Recorded Confirmed Type Butalb/APAP/Caff 50-325-40Mg 1 tab PO Q8HR PRN 05/22/17 05/29/21 History [Fioricet 50-325-40] DULoxetine HCL [Cymbalta] 60 mg PO HS 05/22/17 05/29/21 History Ibuprofen 800 mg PO TID 05/22/17 05/29/21 History Topiramate [Topamax] 100 mg PO BID 05/22/17 05/29/21 History Pregabalin [Lyrica] 150 mg PO TID 01/12/18 05/29/21 History Aspirin EC [Ecotrin Low Dose] 81 mg PO DAILY 06/06/18 05/29/21 History Loratadine [Claritin] 10 mg PO DAILY 06/06/18 05/29/21 History HYDROcodone/APAP 10-325MG [[place] 1 tab PO TID PRN 08/18/19 05/29/21 History 10-325] ARIPiprazole [Abilify] 5 mg PO HS 04/27/20 05/29/21 History Atorvastatin [Lipitor] 20 mg PO HS 04/27/20 05/29/21 History Metoprolol Tartrate [Lopressor] 12.5 mg PO BID 04/27/20 05/29/21 History Venlafaxine HCl ER [Effexor XR] 37.5 mg PO DAILY 04/27/20 05/29/21 History Zolpidem [Ambien] 10 mg PO HS 04/27/20 05/29/21 History amLODIPine BESYLATE/BENAZEPRIL 1 tab PO DAILY 04/27/20 05/29/21 History [amLODIPine BESYLATE/BENAZEPRIL 5-10 MG] Ferrous Sulfate [Iron (65 MG 325 mg PO BID 04/21/21 05/29/21 History Elemental)] Fluticasone/Salmeterol [Advair 1 puff INHALATION RT-BID 04/21/21 05/29/21 History 500-50 Diskus] Furosemide [Lasix] 40 mg PO DAILY 04/21/21 05/29/21 History Levothyroxine Sodium [Synthroid] 50 mcg PO DAILY 04/21/21 05/29/21 History Potassium Chloride 10 meq PO DAILY 04/21/21 05/29/21 History rOPINIRole HCL [Requip] 1 mg PO HS 04/21/21 05/29/21 History tiZANidine [Zanaflex] 4 mg PO BID PRN 04/21/21 05/29/21 History Albuterol Sulfate [Albuterol 2 puff PO RT-Q4H PRN 05/29/21 05/29/21 History Sulfate Hfa] Verapamil HCl [Verapamil ER] 180 mg PO DAILY 05/29/21 05/29/21 History Allergies Allergy/AdvReac Type Severity Reaction Status Date / Time morphine Allergy Itching/hiv Verified 05/29/21 16:29 es/sob peach Allergy Rash/Hives Verified 05/29/21 16:36 pear Allergy Rash/Hives Verified 05/29/21 16:36 Sulfa (Sulfonamide Allergy RAPID Verified 05/29/21 16:29 Antibiotics) HEART RATE AND HIVES Physical Exam Vitals: Vital Signs Temp Pulse Pulse Resp BP BP Pulse Ox 05/30/21 13:08 18 05/30/21 11:22 98.7 F 80 18 109/72 93 L 05/30/21 08:00 98.4 F 84 16 138/84 93 L 05/30/21 03:55 98 F 79 18 147/88 97 05/29/21 22:45 98.2 F 73 19 142/86 96 05/29/21 22:32 78 16 127/78 97 05/29/21 18:36 98.6 F 77 20 145/82 98 05/29/21 15:18 84 20 146/91 91 L 05/29/21 14:02 82 05/29/21 13:55 76 Intake and Output 05/29/21 05/30/21 05/30/21 22:59 06:59 14:59 Output Total 750 1600 Balance -750 -1600 Output: Urine 750 1600 Other: Voiding Method Bedside Commode Bedside Commode Bedside Commode # Voids 3 Weight 156.489 kg 164.6 kg GENERAL EXAM: Alert, pleasant, morbidly obese 51-year-old white female co mfortable in no apparent distress currently on 5 L of oxygen with a pulse ox of 95%. Patient does become dyspneic with ambulation, has a congested cough HEAD: Normocephalic/atraumatic. EYES: Normal reaction of pupils, equal size. Conjunctiva pink, sclera white. NOSE: Clear with pink turbinates. THROAT: No erythema or exudates. NECK: No masses, no JVD, no thyroid enlargement, no adenopathy. CHEST: No chest wall deformity. Symmetrical expansion. LUNGS: Equal air entry with bibasilar crackles, wheezing on forced exhale maneuver CVS: Regular rate and rhythm, normal S1 and S2, no gallops, no murmurs, no rubs ABDOMEN: Soft, nontender. No hepatosplenomegaly, normal bowel sounds, no guarding or rigidity. His anterior abdominal wall edema, which is pitting, no direct tenderness, no rebound tenderness, no guarding EXTREMITIES: No clubbing, no cyanosis, 2+ pulses and upper and lower extremiti es. There are mild changes of chronic venous stasis in lower extremities and +1 pretibial edema MUSCULOSKELETAL: Muscle strength and tone normal. SPINE: No scoliosis or deformity SKIN: No rashes CENTRAL NERVOUS SYSTEM: Alert and oriented -3. No focal deficits, tone is normal in all 4 extremities. PSYCHIATRIC: Alert and oriented -3. Appropriate affect. Intact judgment and insight. Results - Laboratory Findings CBC and BMP: 05/30/21 07:23 05/30/21 07:23 PT/INR, D-dimer PT 10.0 sec (9.0-12.0) 05/29/21 13:12 INR 0.9 (<1.2) 05/29/21 13:12 D-Dimer 1.28 mg/L FEU (<0.60) H 05/29/21 13:12 Abnormal lab findings: Abnormal Labs 05/29/21 05/29/21 05/29/21 13:12 13:12 13:12 RBC 5.64 H MCV 76.8 L MCH 20.8 L MCHC 27.0 L RDW 18.5 H Lymphocytes # APTT 21.9 L D-Dimer 1.28 H Carbon Dioxide 37 H BUN 19 H Creatinine 0.46 L Glucose Iron % Saturation 05/30/21 05/30/21 07:23 07:23 RBC 5.52 H MCV 77.4 L MCH 21.2 L MCHC 27.3 L RDW 18.4 H Lymphocytes # 0.9 L APTT D-Dimer Carbon Dioxide 38 H BUN 18 H Creatinine 0.50 L Glucose 120 H Iron 17 L % Saturation 3.85 L - Diagnostic Findings Chest x-ray: image reviewed Assessment and Plan Plan: 1 acute COPD exacerbation with secondary shortness of breath. Patient is an ex-smoker and she quit smoking 3 years back. She is currently on Advair and pro-air rescue inhaler on an as-needed basis. Her worsening shortness of breath is related to COPD exacerbation along with an obvious component of fluid overload as the patient is having increased abdominal wall edema and lower ex tremity edema. CAT scan of the abdomen is showing anasarca. CTA of the chest shows no evidence of any pulmonary embolism.. The patient generalized anasarca and dependence by the edema. 2 morbid obesity 3 obstructive sleep apnea, AHI 15, supposed utilizes CPAP pressure of 13 cm of water and will not utilizing CPAP therapy on outpatient basis 4 chronic secondary pulmonary hypertension, awaiting a reevaluation of the PA pressures. LV function is normal. ProBNP level was nonelevated. 5 hypertension 6 history of reflux sympathetic dystrophy diagnosed in 2016 7 abnormal MRI of the brain with several lesions, nondiagnostic for MS based on previous evaluation 8 chronic peripheral neuropathy and back pain 9 complex migraines 10 debility secondary to above-mentioned comorbidities Plan DuoNeb nebulized treatments, utilize DuoNeb's every 6 hours IV Lasix 40 mg every 8 hours Monitor urine output Monitor fluid balance Echocardiogram to evaluate LV function and pulmonary hypertension With obviously encouraged use of CPAP therapy on outpatient basis We'll continue to follow. Home medications have been resumed. CT angios of the chest and a CAT scan of the abdomen and pelvis has been noted.
--- NOTE | 2021-05-30 14:49 | P.PN ---
Subjective Progress Note Date: 05/30/21 This is a 51-year-old female admitted with hypoxic respiratory failure, abdominal wall edema, anasarca, fluid overload and multiple other medical issues. Diuresing well on Lasix IV push with 24-hour I&O reflecting a negative fluid balance.Renal function stable. BNP 311, troponins negative 3. Echo pending. Maintaining O2 sats in the 90s on 5 L nasal cannula. Afebrile, normal WBC. Objective - Vital Signs Vital signs: Vital Signs Temp 98.4 F 05/30/21 08:00 Pulse 84 05/30/21 08:00 Resp 16 05/30/21 08:00 BP 138/84 05/30/21 08:00 Pulse Ox 93 L 05/30/21 08:00 Intake & Output 05/29/21 05/30/21 05/30/21 18:59 06:59 18:59 Output Total 750 800 Balance -750 -800 Weight 156.489 kg 164.6 kg Output: Urine 750 800 Other: Voiding Method Bedside Commode # Voids 3 - Exam PHYSICAL EXAMINATION: GENERAL: Morbidly obese, alert and oriented 3, lying in the bed comfortably, no acute distress HEENT: Normocephalic. Neck is supple. Pupils reactive. Oral mucosa moist. Neck reveals no JVD, carotid bruits, or thyromegaly. CHEST EXAMINATION: Diminished air entry .Symmetrical expansion.Bilateral mild expiratory wheezing. No rhonchi. CARDIAC: Normal S1, S2 with no gallops. Systolic murmur. ABDOMEN: Soft. Bowel sounds normal. No organomegaly. No abdominal bruits. Increased abdominal wall edema-nontender. Extremities: Chronic venous stasis with bilateral edema.. No clubbing or cyanosis Neurologically awake, alert, oriented x3 with well-coordinated movements. No focal deficits noted Skin: No rash, warm and dry - Labs CBC & Chem 7: 05/30/21 07:23 05/30/21 07:23 Labs: Abnormal Lab Results - Last 24 Hours (Table) 05/29/21 05/29/21 05/29/21 Range/Units 13:12 13:12 13:12 RBC 5.64 H (3.80-5.40) m/uL MCV 76.8 L (80.0-100.0) fL MCH 20.8 L (25.0-35.0) pg MCHC 27.0 L (31.0-37.0) g/dL RDW 18.5 H (11.5-15.5) % Lymphocytes # (1.0-4.8) k/uL APTT 21.9 L (22.0-30.0) sec D-Dimer 1.28 H (<0.60) mg/L FEU Carbon Dioxide 37 H (22-30) mmol/L BUN 19 H (7-17) mg/dL Creatinine 0.46 L (0.52-1.04) mg/dL Glucose (74-99) mg/dL 05/30/21 05/30/21 Range/Units 07:23 07:23 RBC 5.52 H (3.80-5.40) m/uL MCV 77.4 L (80.0-100.0) fL MCH 21.2 L (25.0-35.0) pg MCHC 27.3 L (31.0-37.0) g/dL RDW 18.4 H (11.5-15.5) % Lymphocytes # 0.9 L (1.0-4.8) k/uL APTT (22.0-30.0) sec D-Dimer (<0.60) mg/L FEU Carbon Dioxide 38 H (22-30) mmol/L BUN 18 H (7-17) mg/dL Creatinine 0.50 L (0.52-1.04) mg/dL Glucose 120 H (74-99) mg/dL Assessment and Plan Assessment: Abdominal edema,anasarca due to fluid overload, echo pending. Acute on chronic hypoxic and hypercapnic respiratory failure, secondary to acute COPD exacerbation and fluid overload Acute COPD exacerbation Elevated D-dimer level. CTA chest negative for PE. Hypertension Hyperlipidemia Obstructive sleep apnea on CPAP Pulmonary hypertension Hypothyroidism History of CVA/TIA with no residual weakness Anxiety/depression Current everyday smoker Chronic pain Reflex sympathetic dystrophy Morbid obesity with BMI 64.3 Chronic Bilateral peripheral neuropathy, nondiabetic Chronic back pain Restless leg syndrome Medical debility History of nicotine dependence, quit 3 years ago Plan: Continue on current medication regime ,monitoring and symptomatic treatment. Echo pending IV push, Diuretics increased. Close monitoring of renal function, electrolytes with repeat labs ordered for a.m. maintain nebulized bronchodilators. Cardiology and pulmonary consults in place, recommendations pending. The impression and plan of care has been dictated as directed. : I performed a history and examination of this patient, discussed the same with the dictator. I agree with the dictator's note ,documented as a scribe. Any additional findings or plans will be noted.
[2021-05-30] MEDS: ZOLPIDEM 5 MG TAB PO SCH (20:09)
[2021-05-30] MEDS: ATORVASTATIN 20 MG TAB PO SCH (20:10)
[2021-05-30] MEDS: DULoxetine HCL 60 MG CAPSULE.DR PO SCH (20:10)
[2021-05-30] MEDS: ARIPiprazole 5 MG TAB PO SCH (20:12)
[2021-05-31] MEDS: LEVOTHYROXINE 50 MCG TAB PO SCH (06:46)
[2021-05-31] MEDS: SYMBICORT 160-4.5 MCG INHALER INHALATION SCH ×2 (07:59→19:25)
[2021-05-31] MEDS: PREGABALIN 75 MG CAP PO SCH ×3 (08:07→21:06)
[2021-05-31] MEDS: METOPROLOL TARTRATE 12.5 MG TAB PO SCH ×2 (08:07→21:05)
[2021-05-31] MEDS: ASPIRIN 81 MG PO SCH (08:08)
[2021-05-31] MEDS: POTASSIUM CHLORIDE ER 10 MEQ TAB.ER.PRT PO SCH (08:08)
[2021-05-31] MEDS: FUROSEMIDE 10 MG/ML 4 ML VIAL IV SCH ×2 (08:08→21:06)
[2021-05-31] MEDS: TOPIRAMATE 100 MG TAB PO SCH ×2 (08:08→21:06)
[2021-05-31] MEDS: HEPARIN SODIUM,PORCINE/PF 5,000 UNIT/0.5 ML SYRINGE SQ SCH ×3 (08:08→23:29)
[2021-05-31] MEDS: VERAPAMIL SR 180 MG TABLET.ER PO SCH (08:09)
[2021-05-31] MEDS: VENLAFAXINE HCL ER 37.5 MG CAP PO SCH (08:09)
--- NOTE | 2021-05-31 13:11 | P.PN ---
Subjective Progress Note Date: 05/31/21 HISTORY OF PRESENT ILLNESS: Patient examined this morning at the bedside. Patient states her abdomen does not feel less distended compared to yesterday. She remains on IV lasix. Fluid balance over the last 24 hours is -2920cc. She denies chest pain or pressure. Echocardiogram was performed yesterday which was a technically difficult study and images were difficult to obtain. Unable to comment on LV function. Moderate to severe tricuspid regurgitation was present. Severe pulmonary hypertension with RVSP of 56.07 mmHg. Patient did have an echocardiogram performed in office in 2018 with preserved LV function and estimated ejection fraction of 55%. PHYSICAL EXAM: VITAL SIGNS: Reviewed. GENERAL: Well-developed in no acute distress. NECK: Supple. No JVD or thyromegaly LUNGS: Respirations even and unlabored. Lungs essentially clear to auscultation bilaterally. HEART: Regular rate and rhythm. S1 and S2 heard. ABDOMEN: ascites present. distended. nontender. EXTREMITIES: Normal range of motion. No clubbing or cyanosis. Peripheral pulses intact. No lower extremity edema ASSESSMENT: Abdominal distention with ascites, CHF ruled out Acute COPD exacerbation Hypertension Severe pulmonary retention Obstructive sleep apnea PLAN: Continue IV lasix Monitor I&O Daily weights Obtain US abdomen. If significant ascites, patient may benefit from paracentesis for both diagnostic and therapeutic purposes Further recommendations pending patient's course Nurse practitioner note has been reviewed by physician. Signing provider agrees with the documented findings, assessment, and plan of care. Objective - Vital Signs Vital signs: Vital Signs Temp 97.9 F 05/31/21 11:33 Pulse 71 05/31/21 11:33 Resp 18 05/31/21 11:33 BP 133/82 05/31/21 11:33 Pulse Ox 97 05/31/21 11:33 Intake & Output 05/30/21 05/31/21 05/31/21 18:59 06:59 18:59 Intake Total 780 150 200 Output Total 2450 1400 1150 Balance -5263 -1250 -950 Weight 114.5 kg Intake: Intake, IV Titration 50 Amount ceFAZolin 2 gm In Sodium 50 Chloride 0.9% 50 ml @ 100 mls/hr IVPB Q8HR [facility] Rx# :[id number] Oral 780 100 200 Output: Urine 2450 1400 1150 Other: Voiding Method Bedside Commode Bedside Commode Toilet # Voids 3 2 - Labs CBC & Chem 7: 05/30/21 07:23 05/30/21 07:23 Labs: Abnormal Lab Results - Last 24 Hours (Table) 05/30/21 Range/Units 07:23 Iron 17 L (50-170) ug/dL % Saturation 3.85 L (12.00-45.00)
--- NOTE | 2021-05-31 14:10 | P.PN ---
Subjective Progress Note Date: 05/31/21 This is a 51-year-old female patient, known to me from previous hospital admiss ions, as the patient is known to have COPD, chronic hypoxic respiratory failure and obstructive sleep apnea. She is morbidly obese and her body mass index is 64.3. She has also other comorbidities including RSD, hypertension and hyperlipidemia and osteoarthritis. The patient came in to the hospital because of worsening shortness of breath and abdominal distention a few days duration. She feels that she is getting more edematous in her abdomen is getting also more edematous and swallow. No fever. No chills. No significant cough or sputum production. No chest pain. Chest x-ray showed some cardiomegaly and mild four- vessel congestion. There is also probably a small left-sided pleural effusion. CAT scan of the abdomen showed generalized anasarca. CTA of the chest was done and it showed some small breathing motion artifact. No evidence of any pulmonary embolism. Patient is currently on Lasix with a dose of 40 mg every 12 hours. Troponin times is been negative. ProBNP level was 311. Renal function is stable creatinine of 0.4 and again of 19. Serum bicarb is 37, temp is 72 chronic hypercapnic respiratory failure. White cell count is not elevated. 05/31/2021, the patient is being seen for a follow-up. The patient is less short of breath compared to yesterday. She is diuresing well and she is currently on Lasix 40 mg IV every 12 hours. She is also on DuoNeb nebulized treatments around the clock. No significant cough sputum production chest tightness or wheezing. The fluid balance over the past 24 hours is -2.9 L. The blood work shows a BUN of 18 with a creatinine of 0.5. Electrolytes are showing a component of metabolic alkalosis with a bicarb of 38. The white cell, 6.2 with a hemoglobin of 11.7. No other new complaints otherwise for now. No nausea. No vomiting. No abdominal pain. Her pulse ox is 97% on 5 L of oxygen by nasal cannula. Objective - Vital Signs Vital signs: Vital Signs Temp 97.9 F 05/31/21 11:33 Pulse 71 05/31/21 11:33 Resp 18 05/31/21 11:33 BP 133/82 05/31/21 11:33 Pulse Ox 97 05/31/21 11:33 Intake & Output 05/30/21 05/31/21 05/31/21 18:59 06:59 18:59 Intake Total 780 150 200 Output Total 2450 1400 1150 Balance -1670 -1250 -950 Weight 114.5 kg Intake: Intake, IV Titration 50 Amount ceFAZolin 2 gm In Sodium 50 Chloride 0.9% 50 ml @ 100 mls/hr IVPB Q8HR [facility] Rx# :[id number] Oral 780 100 200 Output: Urine 2450 1400 1150 Other: Voiding Method Bedside Commode Bedside Commode Toilet # Voids 3 2 - Exam GENERAL EXAM: Alert, pleasant, morbidly obese 51-year-old white female comfortable in no apparent distress currently on 5 L of oxygen with a pulse ox of 95%. Patient does become dyspneic with ambulation, has a congested cough HEAD: Normocephalic/atraumatic. EYES: Normal reaction of pupils, equal size. Conjunctiva pink, sclera white. NOSE: Clear with pink turbinates. THROAT: No erythema or exudates. NECK: No masses, no JVD, no thyroid enlargement, no adenopathy. CHEST: No chest wall deformity. Symmetrical expansion. LUNGS: Equal air entry with bibasilar crackles, wheezing on forced exhale jessica uver CVS: Regular rate and rhythm, normal S1 and S2, no gallops, no murmurs, no rubs ABDOMEN: Soft, nontender. No hepatosplenomegaly, normal bowel sounds, no guarding or rigidity. His anterior abdominal wall edema, which is pitting, no direct tenderness, no rebound tenderness, no guarding EXTREMITIES: No clubbing, no cyanosis, 2+ pulses and upper and lower extremities. There are mild changes of chronic venous stasis in lower extremities and +1 pretibial edema MUSCULOSKELETAL: Muscle strength and tone normal. SPINE: No scoliosis or deformity SKIN: No rashes CENTRAL NERVOUS SYSTEM: Alert and oriented -3. No focal deficits, tone is normal in all 4 extremities. PSYCHIATRIC: Alert and oriented -3. Appropriate affect. Intact judgment and insight. - Labs CBC & Chem 7: 05/30/21 07:23 05/30/21 07:23 Assessment and Plan Plan: 1 acute COPD exacerbation with secondary shortness of breath. Patient is an ex- smoker and she quit smoking 3 years back. She is currently on Advair and pro- air rescue inhaler on an as-needed basis. Her worsening shortness of breath is related to COPD exacerbation along with an obvious component of fluid overload as the patient is having increased abdominal wall edema and lower extremity edema. CAT scan of the abdomen is showing anasarca. CTA of the chest shows no evidence of any pulmonary embolism.. The patient generalized anasarca and dependence by the edema. 2 morbid obesity 3 obstructive sleep apnea, AHI 15, supposed utilizes CPAP pressure of 13 cm of water and will not utilizing CPAP therapy on outpatient basis 4 chronic secondary pulmonary hypertension, awaiting a reevaluation of the PA pressures. LV function is normal. ProBNP level was nonelevated. 5 hypertension 6 history of reflux sympathetic dystrophy diagnosed in 2016 7 abnormal MRI of the brain with several lesions, nondiagnostic for MS based on previous evaluation 8 chronic peripheral neuropathy and back pain 9 complex migraines 10 debility secondary to above-mentioned comorbidities Plan DuoNeb nebulized treatments, utilize DuoNeb's every 6 hours IV Lasix 40 mg every 12 hours. Clinically improving and the patient is a negative fluid balance of at least 2.8 L over the past 24 hours. Monitor urine output Monitor fluid balance Monitor electrolytes A repeat echo was done and the patient has a moderate to severe tricuspid regurgitation with a PA pressure of around 56. LV function was not adequately visualized, felt to be within normal limits. Cardiac rhythm is sinus. With obviously encouraged use of CPAP therapy on outpatient basis We'll continue to follow.
--- NOTE | 2021-05-31 14:25 | P.PN ---
Subjective Progress Note Date: 05/31/21 This is a 51-year-old female admitted with hypoxic respiratory failure, abdominal wall edema, anasarca, fluid overload and multiple other medical issues. Diuresing well on Lasix IV push with 24-hour I&O reflecting a negative fluid balance.Renal function stable. BNP 311, troponins negative 3. Echo pending. Maintaining O2 sats in the 90s on 5 L nasal cannula. Afebrile, normal WBC. 05/31/2021 Evaluated by cardiology and pulmonary with recommendations noted and appreciated. Echo reported a technically difficult study with suboptimal views, unable to comment on LV function, moderate to severe tricuspid regurgitation, severe pulmonary hypertension. Patient reports no change in abdominal distentio n. Diuresing well on Lasix IV push with 24-hour I&O reflecting a negative fluid balance of 2920. Abdominal ultrasound ordered. Maintaining O2 sats in the 90s on 5 L nasal cannula. Afebrile, normal WBC. Hemoglobin 11.7, platelets 187. Renal function stable. Objective - Vital Signs Vital signs: Vital Signs Temp 97.9 F 05/31/21 11:33 Pulse 71 05/31/21 11:33 Resp 18 05/31/21 11:33 BP 133/82 05/31/21 11:33 Pulse Ox 97 05/31/21 11:33 Intake & Output 05/30/21 05/31/21 05/31/21 18:59 06:59 18:59 Intake Total 780 150 200 Output Total 2450 1400 1150 Balance -1670 -1250 -950 Weight 114.5 kg Intake: Intake, IV Titration 50 Amount ceFAZolin 2 gm In Sodium 50 Chloride 0.9% 50 ml @ 100 mls/hr IVPB Q8HR [facility] Rx# :[id number] Oral 780 100 200 Output: Urine 2450 1400 1150 Other: Voiding Method Bedside Commode Bedside Commode Toilet # Voids 3 2 - Exam PHYSICAL EXAMINATION: GENERAL: Morbidly obese, alert and oriented 3, lying in the bed comfortably, no acute distress HEENT: Normocephalic. Neck is supple. Pupils reactive. Oral mucosa moist. Neck reveals no JVD, carotid bruits, or thyromegaly. CHEST EXAMINATION: Diminished air entry .Symmetrical expansion.Bilateral mild expiratory wheezing. No rhonchi. CARDIAC: Normal S1, S2 with no gallops. Systolic murmur. ABDOMEN: Soft. Bowel sounds normal. No organomegaly. No abdominal bruits. Increased abdominal wall edema-nontender. Extremities: Chronic venous stasis with bilateral edema.. No clubbing or cyanosis Neurologically awake, alert, oriented x3 with well-coordinated movements. No focal deficits noted Skin: No rash, warm and dry - Labs CBC & Chem 7: 05/30/21 07:23 05/30/21 07:23 Assessment and Plan Assessment: Abdominal edema,anasarca due to fluid overload, echo reported a technically difficult study with suboptimal views, unable to comment on LV function. Acute on chronic hypoxic and hypercapnic respiratory failure, secondary to acute COPD exacerbation and fluid overload. Acute COPD exacerbation Elevated D-dimer level. CTA chest negative for PE. Hypertension Hyperlipidemia Obstructive sleep apnea on CPAP Pulmonary hypertension, severe Moderate to severe tricuspid regurgitation Hypothyroidism History of CVA/TIA with no residual weakness Anxiety/depression Current everyday smoker Chronic pain Reflex sympathetic dystrophy Morbid obesity with BMI 64.3 Chronic Bilateral peripheral neuropathy, nondiabetic Chronic back pain Restless leg syndrome Medical debility History of nicotine dependence, quit 3 years ago Plan: Continue on current medication regime ,monitoring and symptomatic treatment. Continue diuretics. Abdominal ultrasound results pending. electrolytes with repeat labs ordered for a.m. maintain nebulized bronchodilators. The impression and plan of care has been dictated as directed. : I performed a history and examination of this patient, discussed the same with the dictator. I agree with the dictator's note ,documented as a scribe. Any additional findings or plans will be noted.
--- NOTE | 2021-05-31 16:04 | US ---
EXAMINATION TYPE: US abdomen limited DATE OF EXAM: 05/31/2021 COMPARISON: NONE CLINICAL HISTORY: Abdominal ascites. Abdominal distention All four quadrants scanned and no free fluid. IMPRESSION: 1. No free fluid in the abdomen.
[2021-05-31] MEDS: HYDROcodone/APAP 10-325MG 1 EACH TAB PO PRN (16:32)
[2021-05-31] MEDS: ATORVASTATIN 20 MG TAB PO SCH (21:06)
[2021-05-31] MEDS: ARIPiprazole 5 MG TAB PO SCH (21:06)
[2021-05-31] MEDS: ZOLPIDEM 5 MG TAB PO SCH (21:06)
[2021-05-31] MEDS: DULoxetine HCL 60 MG CAPSULE.DR PO SCH (21:06)
[2021-06-01] MEDS: LEVOTHYROXINE 50 MCG TAB PO SCH (06:10)
[2021-06-01] MEDS: BUTALB/APAP/CAFF 50-325-40MG TAB PO PRN (06:10)
[2021-06-01] MEDS: SYMBICORT 160-4.5 MCG INHALER INHALATION SCH ×2 (08:00→19:36)
[2021-06-01] MEDS: FUROSEMIDE 10 MG/ML 4 ML VIAL IV SCH ×3 (09:16→23:14)
[2021-06-01] MEDS: PREGABALIN 75 MG CAP PO SCH ×3 (09:17→21:21)
[2021-06-01] MEDS: ASPIRIN 81 MG PO SCH (09:17)
[2021-06-01] MEDS: TOPIRAMATE 100 MG TAB PO SCH ×2 (09:17→21:21)
[2021-06-01] MEDS: POTASSIUM CHLORIDE ER 10 MEQ TAB.ER.PRT PO SCH (09:17)
[2021-06-01] MEDS: HEPARIN SODIUM,PORCINE/PF 5,000 UNIT/0.5 ML SYRINGE SQ SCH ×3 (09:18→23:14)
[2021-06-01] MEDS: VENLAFAXINE HCL ER 37.5 MG CAP PO SCH (09:18)
[2021-06-01] MEDS: METOPROLOL TARTRATE 12.5 MG TAB PO SCH ×2 (09:25→21:21)
[2021-06-01] MEDS: VERAPAMIL SR 180 MG TABLET.ER PO SCH (09:28)
--- NOTE | 2021-06-01 11:27 | P.PN ---
Subjective Progress Note Date: 06/01/21 HISTORY OF PRESENT ILLNESS: Patient examined this morning at the bedside. Patient states her abdomen does not feel less distended compared to yesterday. She remains on IV lasix. Fluid balance over the last 24 hours is -2920cc. She denies chest pain or pressure. Echocardiogram was performed yesterday which was a technically difficult study and images were difficult to obtain. Unable to comment on LV function. Moderate to severe tricuspid regurgitation was present. Severe pulmonary hypertension with RVSP of 56.07 mmHg. Patient did have an echocardiogram performed in office in 2018 with preserved LV function and estimated ejection fraction of 55%. 06/01/2021 Patient examined this morning at the bedside. Patient denies chest pain or pressure. Denies shortness of breath. Patient remains on IV lasix. She is negative 2L over the past 24 hours. Patient does not feel like her abdominal distention is improving and she is somewhat frustrated this morning. Abdominal US revealed no free fluid in the abdomen. PHYSICAL EXAM: VITAL SIGNS: Reviewed. GENERAL: Well-developed in no acute distress. NECK: Supple. No JVD or thyromegaly LUNGS: Respirations even and unlabored. Lungs essentially clear to auscultation bilaterally. HEART: Regular rate and rhythm. S1 and S2 heard. ABDOMEN: Distended. nontender. EXTREMITIES: Normal range of motion. No clubbing or cyanosis. Peripheral pulses intact. No lower extremity edema ASSESSMENT: Abdominal distention with ascites, CHF ruled out Acute COPD exacerbation Hypertension Severe pulmonary retention Obstructive sleep apnea PLAN: Continue IV lasix Monitor I&O Daily weights We will sign off. please reconsult if needed Nurse practitioner note has been reviewed by physician. Signing provider agrees with the documented findings, assessment, and plan of care. Objective - Vital Signs Vital signs: Vital Signs Temp 98.0 F 05/31/21 20:00 Pulse 70 06/01/21 04:00 Resp 18 06/01/21 04:00 BP 111/59 06/01/21 04:00 Pulse Ox 95 06/01/21 08:00 Intake & Output 05/31/21 06/01/21 06/01/21 18:59 06:59 18:59 Intake Total 1230 50 480 Output Total 2050 1200 Balance -820 -1150 480 Weight 161.8 kg Intake: Intake, IV Titration 50 Amount ceFAZolin 1,000 mg In 50 Sodium Chloride 0.9% 50 ml @ 100 mls/hr IVPB Q8HR [facility] Rx#:[id number] Oral 1230 480 Output: Urine 2050 1200 Other: Voiding Method Toilet Toilet - Labs CBC & Chem 7: 06/02/21 08:27 06/02/21 08:27
[2021-06-01 11:34] LABS: African American GFR (CKD) >90 (>60 ml/min/1.73 sqM); Anion Gap 5 mmol/L; Blood Urea Nitrogen 19 mg/dL (7-17); Calcium 9.7 mg/dL (8.4-10.2); Chloride 93 mmol/L (98-107); Glucose 82 mg/dL (74-99); Non-African American GFR(CKD) >90 (>60 ml/min/1.73 sqM); Potassium 4.8 mmol/L (3.5-5.1); Sodium 138 mmol/L (137-145)
[2021-06-01 11:36] LABS: Anisocytosis Slight; Basophils # (A) 0.1 k/uL (0-0.2); Basophils % (A) 1 %; Eosinophils # (A) 0.1 k/uL (0-0.7); Eosinophils % (A) 2 %; HGB 12.5 gm/dL (11.4-16.0); Hypochromasia Marked; Lymphocytes # (A) 1.1 k/uL (1.0-4.8); Lymphocytes % (A) 19 %; MCH 21.4 pg (25.0-35.0); MCHC 28.4 g/dL (31.0-37.0); MCV 75.2 fL (80.0-100.0); Mean Platelet Volume 7.7; Microcytosis Moderate; Monocytes # (A) 0.5 k/uL (0-1.0); Monocytes % (A) 10 %; Neutrophils # (A) 3.6 k/uL (1.3-7.7); Neutrophils % (A) 66 %; Platelet Count 167 k/uL (150-450); Poikilocytosis Slight; RBC 5.85 m/uL (3.80-5.40); RDW 18.4 % (11.5-15.5); WBC 5.5 k/uL (3.8-10.6)
[2021-06-01 11:41] LABS: Carbon Dioxide 40 mmol/L (22-30)
--- NOTE | 2021-06-01 12:13 | P.PN ---
Subjective Progress Note Date: 06/01/21 Principal diagnosis: Acute exacerbation of COPD, fluid overload This is a 51-year-old female patient, known to me from previous hospital admissions, as the patient is known to have COPD, chronic hypoxic respiratory failure and obstructive sleep apnea. She is morbidly obese and her body mass index is 64.3. She has also other comorbidities including RSD, hypertension and hyperlipidemia and osteoarthritis. The patient came in to the hospital because of worsening shortness of breath and abdominal distention a few days duration. She feels that she is getting more edematous in her abdomen is getting also more edematous and swallow. No fever. No chills. No significant cough or sputum production. No chest pain. Chest x-ray showed some cardiomegaly and mild four-vessel congestion. There is also probably a small left-sided pleural effusion. CAT scan of the abdomen showed generalized anasarca. CTA of the chest was done and it showed some small breathing motion artifact. No evidence of any pulmonary embolism. Patient is currently on Lasix with a dose of 40 mg e very 12 hours. Troponin times is been negative. ProBNP level was 311. Renal function is stable creatinine of 0.4 and again of 19. Serum bicarb is 37, temp is 72 chronic hypercapnic respiratory failure. White cell count is not elevated. 05/31/2021, the patient is being seen for a follow-up. The patient is less short of breath compared to yesterday. She is diuresing well and she is currently on Lasix 40 mg IV every 12 hours. She is also on DuoNeb nebulized treatments around the clock. No significant cough sputum production chest tightness or wheezing. The fluid balance over the past 24 hours is -2.9 L. The blood work shows a BUN of 18 with a creatinine of 0.5. Electrolytes are showing a component of metabolic alkalosis with a bicarb of 38. The white cell, 6.2 with a hemoglobin of 11.7. No other new complaints otherwise for now. No nausea. No vomiting. No abdominal pain. Her pulse ox is 97% on 5 L of oxygen by nasal cannula. On 06/01/2021 patient seen in follow-up. She is sitting up in chair, breathing comfortably she is on 3 L of oxygen pulse ox is 94%, afebrile, hemodynamically stable, she does get short of breath with exertion. She's been getting to the bathroom to void. She is awake and alert, oriented 3, remains on diuretics in the form of Lasix, 40 mg twice daily, net fluid balance is -1.9 L over the last 24 hours. However patient still has quite significant edema involving abdominal wall and lower extremities. Abdominal ultrasound showed no free fluid in the abdomen Objective - Vital Signs Vital signs: Vital Signs Temp 98.2 F 06/01/21 08:00 Pulse 102 H 06/01/21 08:00 Resp 18 06/01/21 08:00 BP 113/72 06/01/21 08:00 Pulse Ox 94 L 06/01/21 08:00 Intake & Output 05/31/21 06/01/21 06/01/21 18:59 06:59 18:59 Intake Total 1230 50 480 Output Total 2049 1200 Balance -820 -1150 480 Weight 161.8 kg Intake: Intake, IV Titration 50 Amount ceFAZolin 1,000 mg In 50 Sodium Chloride 0.9% 50 ml @ 100 mls/hr IVPB Q8HR [facility] Rx#:[id number] Oral 1230 480 Output: Urine 2049 1200 Other: Voiding Method Toilet Toilet - Exam GENERAL EXAM: Alert, very pleasant, 51-year-old white female, on 4 L of oxygen with pulse ox of 94% comfortable in no apparent distress. HEAD: Normocephalic/atraumatic. EYES: Normal reaction of pupils, equal size. Conjunctiva pink, sclera white. NOSE: Clear with pink turbinates. THROAT: No erythema or exudates. NECK: No masses, no JVD, no thyroid enlargement, no adenopathy. CHEST: No chest wall deformity. Symmetrical expansion. LUNGS: Equal air entry with breath sounds, mild wheezes CVS: Regular rate and rhythm, normal S1 and S2, no gallops, no murmurs, no rubs ABDOMEN: Soft, nontender. No hepatosplenomegaly, normal bowel sounds, no guarding or rigidity. EXTREMITIES: No clubbing, extensive of abdominal wall edema, and edema involving bilateral lower extremities no cyanosis, 2+ pulses and upper and lower extremities. MUSCULOSKELETAL: Muscle strength and tone normal. SPINE: No scoliosis or deformity SKIN: No rashes CENTRAL NERVOUS SYSTEM: Alert and oriented -3. No focal deficits, tone is normal in all 4 extremities. PSYCHIATRIC: Alert and oriented -3. Appropriate affect. Intact judgment and i nsight. - Labs CBC & Chem 7: 06/01/21 10:57 06/01/21 10:57 Labs: Abnormal Lab Results - Last 24 Hours (Table) 06/01/21 06/01/21 Range/Units 10:57 10:57 RBC 5.85 H (3.80-5.40) m/uL MCV 75.2 L (80.0-100.0) fL MCH 21.4 L (25.0-35.0) pg MCHC 28.4 L (31.0-37.0) g/dL RDW 18.4 H (11.5-15.5) % Chloride 93 L (98-107) mmol/L Carbon Dioxide 40 H (22-30) mmol/L BUN 19 H (7-17) mg/dL Assessment and Plan Plan: Assessment: 1 acute COPD exacerbation with secondary shortness of breath. Patient is an ex- smoker and she quit smoking 3 years back. She is currently on Advair and pro- air rescue inhaler on an as-needed basis. Her worsening shortness of breath is related to COPD exacerbation along with an obvious component of fluid overload as the patient is having increased abdominal wall edema and lower extremity edema. CAT scan of the abdomen is showing anasarca. CTA of the chest shows no evidence of any pulmonary embolism.. The patient generalized anasarca and dependence by the edema. 2 morbid obesity 3 obstructive sleep apnea, AHI 15, supposed utilizes CPAP pressure of 13 cm of water and will not utilizing CPAP therapy on outpatient basis 4 chronic secondary pulmonary hypertension, awaiting a reevaluation of the PA pressures. LV function is normal. ProBNP level was nonelevated. 5 hypertension 6 history of reflux sympathetic dystrophy diagnosed in 2016 7 abnormal MRI of the brain with several lesions, nondiagnostic for MS based on previous evaluation 8 chronic peripheral neuropathy and back pain 9 complex migraines 10 debility secondary to above-mentioned comorbidities Plan: Increase Lasix to 40 mg every 8 hours Still significantly fluid overloaded but maintaining negative fluid balance Monitor urine output Accurate intake and output Daily weight Daily electrolytes and renal profile Continue breathing treatments I performed a history & physical examination of the patient and discussed their management with my nurse practitioner, Marilee Monte. I reviewed the nurse practitioner's note and agree with the documented findings and plan of care. Lung sounds are positive for diminished breath sounds throughout the lung [place]. The findings and the impression was discussed with the patient. I attest to the documentation by the nurse practitioner. Time with Patient: Less than 30
[2021-06-01] MEDS: FERROUS SULFATE 325 MG TAB PO SCH (12:57)
[2021-06-01] MEDS: HYDROcodone/APAP 10-325MG 1 EACH TAB PO PRN (19:59)
[2021-06-01] MEDS: ATORVASTATIN 20 MG TAB PO SCH (21:21)
[2021-06-01] MEDS: ARIPiprazole 5 MG TAB PO SCH (21:21)
[2021-06-01] MEDS: ZOLPIDEM 5 MG TAB PO SCH (21:21)
[2021-06-01] MEDS: DULoxetine HCL 60 MG CAPSULE.DR PO SCH (21:21)
--- NOTE | 2021-06-02 00:13 | P.PN ---
Subjective Progress Note Date: 06/01/21 Principal diagnosis: Increased abdominal distention and anasarca/ fluid overload. Likely secondary to right heart failure Severe pulmonary hypertension and moderate to severe TR . Acute on chronic hypoxic and hypercapnic respiratory failure on 3 L oxygen via nasal cannula Acute COPD exacerbation. Patient is a 51-year-old female with history of COPD on oxygen 3 L via nasal can nula, reflex sympathetic dystrophy, hypertension, hypothyroidism, osteoarthritis, hyperlipidemia, obstructive sleep apnea on CPAP and bilateral peripheral neuropathy and history of previous stroke, anxiety/depression currently everyday smoker and other multiple medical problems presents to ER with complaints of shortness of breath and abdominal wall distention for the past 2 to 3 days. Patient is also complaining of leg swelling. Patient states that her symptoms started about 2 to 3 days and is gradually getting worse which made her to come to ER. Denies any complaints of chest pain. No fever no chills. No cough or sputum production. No headache or dizziness or lightheadedness. Patient does smoke on a daily basis but quit recently. Denies any alcohol use. No history of prior liver disease. Chest x-ray showed cardiomegaly and pulmonary vascular prominence is most suggestive of edema. Probable small left pleural effusion. Consider early CHF. CT of the abdomen pelvis showed new generalized anasarca change. Sigmoid diverticulosis without acute diverticulitis. CT angiogram of the chest was done due to elevated D-dimer level showed limitation due to small breathing motion and artifact from large body habitus. No definite PE. Mild cardiomegaly with small right and trace left effusion and some patchy densities in the lower lungs. Generalized anasarca. Correlate for third spacing/fluid overload state and of mild CHF. Laboratory data showed WBC 5.5 hemoglobin 11.7 and platelets 212 MCV 76.8 and RDW 18.5 D-dimer level is 1.28 BUN 19 and creatinine 0.46 bicarb of 37 proBNP 311 Troponin x2 - Liver enzymes are not elevated Albumin 3.6 EKG showed normal sinus rhythm with no ST segment elevation or depression. 06/01/2021 Patient was admitted to the hospital due to worsening shortness of breath secondary to COPD exacerbation and anasarca likely due to right heart failure and severe pulmonary hypertension. Patient is currently sitting in the chair comfortably. Currently on 3 L oxygen via nasal cannula. Still having exertional dyspnea and significant swelling abdominal wall and legs. Improved with Lasix. Dose increased to 40 mg every 8 hourly. Ultrasound abdomen done on 05/31/2021 showed no free fluid. Pulmonary is on board. Patient is being continued Symbicort, duo nebs and oxygen supplementation. 2D echocardiogram showed left ventricular wall t thickness is normal. Moderate to severe TR and there is severe pulmonary hypertension. Right ventricular syst olic pressure 56.07 mmHg. Current medications reviewed. Objective - Vital Signs Vital signs: Vital Signs Temp 97.5 F L 06/01/21 16:00 Pulse 71 06/01/21 16:00 Resp 20 06/01/21 16:00 BP 116/65 06/01/21 16:00 Pulse Ox 95 06/01/21 16:00 Intake & Output 05/31/21 06/01/21 06/01/21 18:59 06:59 18:59 Intake Total 1230 50 720 Output Total 2049 1200 700 Balance -820 -1150 20 Weight 161.8 kg Intake: Intake, IV Titration 50 Amount ceFAZolin 1,000 mg In 50 Sodium Chloride 0.9% 50 ml @ 100 mls/hr IVPB Q8HR [facility] Rx#:[id number] Oral 1230 720 Output: Urine 2049 1200 700 Other: Voiding Method Toilet Toilet # Voids 1 - Exam PHYSICAL EXAMINATION: Patient is lying in the bed comfortably, no acute distress, awake alert and oriented.. Morbidly obese HEENT: Normocephalic. Neck is supple. Pupils reactive. Nostrils clear. Oral cavity is moist. Ears reveal no drainage. Neck reveals no JVD, carotid bruits, or thyromegaly. CHEST EXAMINATION: Trachea is central. Symmetrical expansion., no wheezing. No rhonchi. Bibasilar diminished air entry. CARDIAC: Normal S1, S2 with no gallops. No murmurs ABDOMEN: Soft. Bowel sounds normal. No organomegaly. No abdominal bruits. Increased abdominal girth. Extremities: 4+ bilateral edema.. No clubbing or cyanosis Neurologically awake, alert, oriented x3 with well-coordinated movements. No focal deficits noted Skin: No rash or skin lesions. Psychiatric: Coperative. Nonsuicidal Musculoskeletal: No joint swelling or deformity. Normal range of motion. - Labs CBC & Chem 7: 06/01/21 10:57 06/01/21 10:57 Labs: Abnormal Lab Results - Last 24 Hours (Table) 06/01/21 06/01/21 Range/Units 10:57 10:57 RBC 5.85 H (3.80-5.40) m/uL MCV 75.2 L (80.0-100.0) fL MCH 21.4 L (25.0-35.0) pg MCHC 28.4 L (31.0-37.0) g/dL RDW 18.4 H (11.5-15.5) % Chloride 93 L (98-107) mmol/L Carbon Dioxide 40 H (22-30) mmol/L BUN 19 H (7-17) mg/dL Assessment and Plan Assessment: Increased abdominal distention and anasarca/ fluid overload. Likely secondary to right heart failure Severe pulmonary hypertension and moderate to severe TR . Acute on chronic hypoxic and hypercapnic respiratory failure on 3 L oxygen via nasal cannula Acute COPD exacerbation. improving Elevated D-dimer level. CTA chest negative for PE. Microcytic anemia with hemoglobin 11.7 Hypertension Hyperlipidemia Obstructive sleep apnea on CPAP Hypothyroidism History of CVA/TIA with no residual weakness Anxiety/depression Current everyday smoker Chronic pain Reflex sympathetic dystrophy Morbid obesity with BMI 61.1 Bilateral peripheral neuropathy nondiabetic Restless leg syndrome DVT prophylaxis with heparin subcu Plan: Patient will be continued on Lasix 40 mg every 8 hourly. Continue with oxygen supplementation.. Strict I&O's. Continue with duo nebs Continue with home medications Synthroid pain management with [place] 10, 3 times daily as needed. 2D echocardiogram report as above. Cardiology and pulmonary is on board. Continue to follow closely and prognosis is guarded at this time. Time with Patient: Greater than 30
[2021-06-02] MEDS: LEVOTHYROXINE 50 MCG TAB PO SCH (05:57)
[2021-06-02] MEDS: SYMBICORT 160-4.5 MCG INHALER INHALATION SCH ×2 (07:58→21:06)
[2021-06-02] MEDS: FUROSEMIDE 10 MG/ML 4 ML VIAL IV SCH ×3 (08:26→23:57)
[2021-06-02] MEDS: HEPARIN SODIUM,PORCINE/PF 5,000 UNIT/0.5 ML SYRINGE SQ SCH ×3 (08:26→23:57)
[2021-06-02] MEDS: PREGABALIN 75 MG CAP PO SCH ×3 (08:26→19:53)
[2021-06-02] MEDS: ASPIRIN 81 MG PO SCH (08:26)
[2021-06-02] MEDS: METOPROLOL TARTRATE 12.5 MG TAB PO SCH ×2 (08:26→19:53)
[2021-06-02] MEDS: POTASSIUM CHLORIDE ER 10 MEQ TAB.ER.PRT PO SCH (08:27)
[2021-06-02] MEDS: TOPIRAMATE 100 MG TAB PO SCH ×2 (08:27→19:53)
[2021-06-02] MEDS: VERAPAMIL SR 180 MG TABLET.ER PO SCH (08:30)
[2021-06-02] MEDS: VENLAFAXINE HCL ER 37.5 MG CAP PO SCH (08:30)
[2021-06-02 09:21] LABS: African American GFR (CKD) >90 (>60 ml/min/1.73 sqM); Anion Gap 5 mmol/L; Anisocytosis Slight; Basophils # (A) 0.1 k/uL (0-0.2); Basophils % (A) 1 %; Blood Urea Nitrogen 18 mg/dL (7-17); Calcium 9.4 mg/dL (8.4-10.2); Chloride 94 mmol/L (98-107); Eosinophils # (A) 0.1 k/uL (0-0.7); Eosinophils % (A) 2 %; Glucose 119 mg/dL (74-99); HCT 43.8 % (34.0-46.0); HGB 11.9 gm/dL (11.4-16.0); Hypochromasia Marked; Lymphocytes % (A) 21 %; MCH 20.8 pg (25.0-35.0); MCHC 27.2 g/dL (31.0-37.0); MCV 76.5 fL (80.0-100.0); Mean Platelet Volume 10.6; Microcytosis Slight; Monocytes # (A) 0.4 k/uL (0-1.0); Monocytes % (A) 8 %; Neutrophils # (A) 3.2 k/uL (1.3-7.7); Neutrophils % (A) 65 %; Non-African American GFR(CKD) >90 (>60 ml/min/1.73 sqM); Platelet Count 191 k/uL (150-450); Potassium 4.1 mmol/L (3.5-5.1); RBC 5.73 m/uL (3.80-5.40); RDW 18.4 % (11.5-15.5); Sodium 139 mmol/L (137-145); WBC 4.9 k/uL (3.8-10.6)
[2021-06-02 09:28] LABS: Carbon Dioxide 40 mmol/L (22-30)
[2021-06-02] MEDS: FERROUS SULFATE 325 MG TAB PO SCH (12:29)
--- NOTE | 2021-06-02 12:43 | P.PN ---
Subjective Progress Note Date: 06/02/21 This is a 51-year-old female patient, known to me from previous hospital admissions, as the patient is known to have COPD, chronic hypoxic respiratory failure and obstructive sleep apnea. She is morbidly obese and her body mass index is 64.3. She has also other comorbidities including RSD, hypertension and hyperlipidemia and osteoarthritis. The patient came in to the hospital because of worsening shortness of breath and abdominal distention a few days duration. She feels that she is getting more edematous in her abdomen is getting also more edematous and swallow. No fever. No chills. No significant cough or sputum production. No chest pain. Chest x-ray showed some cardiomegaly and mild four- vessel congestion. There is also probably a small left-sided pleural effusion. CAT scan of the abdomen showed generalized anasarca. CTA of the chest was done and it showed some small breathing motion artifact. No evidence of any pulmonary embolism. Patient is currently on Lasix with a dose of 40 mg every 12 hours. Troponin times is been negative. ProBNP level was 311. Renal function is stable creatinine of 0.4 and again of 19. Serum bicarb is 37, temp is 72 chronic hypercapnic respiratory failure. White cell count is not elevated. 05/31/2021, the patient is being seen for a follow-up. The patient is less short of breath compared to yesterday. She is diuresing well and she is currently on Lasix 40 mg IV every 12 hours. She is also on DuoNeb nebulized treatments around the clock. No significant cough sputum production chest tightness or wheezing. The fluid balance over the past 24 hours is -2.9 L. The blood work shows a BUN of 18 with a creatinine of 0.5. Electrolytes are showing a component of metabolic alkalosis with a bicarb of 38. The white cell, 6.2 with a hemoglobin of 11.7. No other new complaints otherwise for now. No nausea. No vomiting. No abdominal pain. Her pulse ox is 97% on 5 L of oxygen by nasal cannula. On 06/01/2021 patient seen in follow-up. She is sitting up in chair, breathing comfortably she is on 3 L of oxygen pulse ox is 94%, afebrile, hemodynamically stable, she does get short of breath with exertion. She's been getting to the bathroom to void. She is awake and alert, oriented 3, remains on diuretics in the form of Lasix, 40 mg twice daily, net fluid balance is -1.9 L over the last 24 hours. However patient still has quite significant edema involving abdominal wall and lower extremities. Abdominal ultrasound showed no free fluid in the abdomen The patient is seen today 06/02/2021 in follow-up. She is currently sitting up in a chair at the bedside. Awake and alert in no acute distress. She is maintaining O2 saturations in the mid 90s on 2 L/m per nasal cannula. She's afebrile. Hemodynamically stable. White count 4.9. Hemoglobin 11.9. Sodium 139. Potassium 4.1. Creatinine 0.65. She remains on DuoNeb inhalations, Symbicort, heparin for DVT prophylaxis. Continued on Lasix 40 mg IV every 8 hours. He is currently in a 3.3 liter negative balance. Weight is down approximately 4 kg. Less edematous. Objective - Vital Signs Vital signs: Vital Signs Temp 98.4 F 06/02/21 08:00 Pulse 80 06/02/21 08:00 Resp 20 06/02/21 08:00 BP 113/58 06/02/21 08:00 Pulse Ox 94 L 06/02/21 08:00 Intake & Output 06/01/21 06/02/21 06/02/21 18:59 06:59 18:59 Intake Total 960 240 Output Total 700 2300 1550 Balance 260 -2300 -1310 Weight 160.4 kg Intake: Oral 960 240 Output: Urine 700 2300 1550 Other: Voiding Method Toilet External Catheter # Voids 1 1 - Exam GENERAL EXAM: Alert, very pleasant, 51-year-old morbidly obese female patient, on 2 L of oxygen with pulse ox of 94% comfortable in no apparent distress. HEAD: Normocephalic/atraumatic. EYES: Normal reaction of pupils, equal size. Conjunctiva pink, sclera white. NOSE: Clear with pink turbinates. THROAT: No erythema or exudates. NECK: No masses, no JVD, no thyroid enlargement, no adenopathy. CHEST: No chest wall deformity. Symmetrical expansion. LUNGS: Equal air entry with breath sounds, crackles in the posterior bases. CVS: Regular rate and rhythm, normal S1 and S2, no gallops, no murmurs, no rubs ABDOMEN: Soft, nontender. No hepatosplenomegaly, normal bowel sounds, no guarding or rigidity. EXTREMITIES: No clubbing, extensive of abdominal wall edema, and edema involving bilateral lower extremities no cyanosis, 2+ pulses and upper and lower extremities. MUSCULOSKELETAL: Muscle strength and tone normal. SPINE: No scoliosis or deformity SKIN: No rashes CENTRAL NERVOUS SYSTEM: Alert and oriented -3. No focal deficits, tone is normal in all 4 extremities. PSYCHIATRIC: Alert and oriented -3. Appropriate affect. Intact judgment and insight. - Labs CBC & Chem 7: 06/02/21 08:27 06/02/21 08:27 Labs: Abnormal Lab Results - Last 24 Hours (Table) 06/02/21 06/02/21 Range/Units 08:27 08:27 RBC 5.73 H (3.80-5.40) m/uL MCV 76.5 L (80.0-100.0) fL MCH 20.8 L (25.0-35.0) pg MCHC 27.2 L (31.0-37.0) g/dL RDW 18.4 H (11.5-15.5) % Chloride 94 L (98-107) mmol/L Carbon Dioxide 40 H (22-30) mmol/L BUN 18 H (7-17) mg/dL Glucose 119 H (74-99) mg/dL Assessment and Plan Assessment: 1 acute COPD exacerbation with secondary shortness of breath. Patient is an ex- smoker and she quit smoking 3 years back. She is currently on Advair and pro- air rescue inhaler on an as-needed basis. Her worsening shortness of breath is related to COPD exacerbation along with an obvious component of fluid overload as the patient is having increased abdominal wall edema and lower extremity edema. CAT scan of the abdomen is showing anasarca. CTA of the chest shows no evidence of any pulmonary embolism.. The patient generalized anasarca and dependence by the edema. 2 morbid obesity 3 obstructive sleep apnea, AHI 15, supposed utilizes CPAP pressure of 13 cm of water and will not utilizing CPAP therapy on outpatient basis 4 chronic secondary pulmonary hypertension, awaiting a reevaluation of the PA pressures. LV function is normal. ProBNP level was nonelevated. 5 hypertension 6 history of reflux sympathetic dystrophy diagnosed in 2016 7 abnormal MRI of the brain with several lesions, nondiagnostic for MS based on previous evaluation 8 chronic peripheral neuropathy and back pain 9 complex migraines 10 debility secondary to above-mentioned comorbidities Plan: The patient was seen and evaluated by Dr. Benito Continue the current treatment plan for now Continue to diurese the patient Titrate the FiO2 as tolerated We'll continue to follow I, the cosigning physician, performed a history & physical examination of the patient. Lungs sounds crackles in the posterior bases. Maintaining good O2 saturations in the 90s on 2 L/m per nasal cannula. I discussed the assessment and plan of care with my nurse practitioner, Va Loving. I attest to the above note as dictated by her.
[2021-06-02] MEDS: ATORVASTATIN 20 MG TAB PO SCH (19:52)
[2021-06-02] MEDS: DULoxetine HCL 60 MG CAPSULE.DR PO SCH (19:52)
[2021-06-02] MEDS: ARIPiprazole 5 MG TAB PO SCH (19:52)
[2021-06-02] MEDS: HYDROcodone/APAP 10-325MG 1 EACH TAB PO PRN (19:53)
[2021-06-02] MEDS: ZOLPIDEM 5 MG TAB PO SCH (19:53)
[2021-06-03] MEDS: LEVOTHYROXINE 50 MCG TAB PO SCH (06:35)
[2021-06-03] MEDS: SYMBICORT 160-4.5 MCG INHALER INHALATION SCH ×2 (07:42→19:09)
[2021-06-03] MEDS: VENLAFAXINE HCL ER 37.5 MG CAP PO SCH (09:45)
[2021-06-03] MEDS: HYDROcodone/APAP 10-325MG 1 EACH TAB PO PRN ×3 (09:47→23:02)
[2021-06-03] MEDS: POTASSIUM CHLORIDE ER 10 MEQ TAB.ER.PRT PO SCH (09:48)
[2021-06-03] MEDS: METOPROLOL TARTRATE 12.5 MG TAB PO SCH ×2 (09:48→20:24)
[2021-06-03] MEDS: TOPIRAMATE 100 MG TAB PO SCH ×2 (09:48→20:25)
[2021-06-03] MEDS: PREGABALIN 75 MG CAP PO SCH ×3 (09:48→20:25)
[2021-06-03] MEDS: FERROUS SULFATE 325 MG TAB PO SCH (09:48)
[2021-06-03] MEDS: ASPIRIN 81 MG PO SCH (09:48)
[2021-06-03] MEDS: FUROSEMIDE 10 MG/ML 4 ML VIAL IV SCH ×3 (09:49→22:54)
[2021-06-03] MEDS: HEPARIN SODIUM,PORCINE/PF 5,000 UNIT/0.5 ML SYRINGE SQ SCH ×3 (09:49→22:54)
[2021-06-03] MEDS: VERAPAMIL SR 180 MG TABLET.ER PO SCH (09:50)
--- NOTE | 2021-06-03 10:53 | P.PN ---
Subjective Progress Note Date: 06/03/21 This is a 51-year-old female patient, known to me from previous hospital admissions, as the patient is known to have COPD, chronic hypoxic respiratory failure and obstructive sleep apnea. She is morbidly obese and her body mass index is 64.3. She has also other comorbidities including RSD, hypertension and hyperlipidemia and osteoarthritis. The patient came in to the hospital because of worsening shortness of breath and abdominal distention a few days duration. She feels that she is getting more edematous in her abdomen is getting also more edematous and swallow. No fever. No chills. No significant cough or sputum production. No chest pain. Chest x-ray showed some cardiomegaly and mild four- vessel congestion. There is also probably a small left-sided pleural effusion. CAT scan of the abdomen showed generalized anasarca. CTA of the chest was done and it showed some small breathing motion artifact. No evidence of any pulmonary embolism. Patient is currently on Lasix with a dose of 40 mg every 12 hours. Troponin times is been negative. ProBNP level was 311. Renal function is stable creatinine of 0.4 and again of 19. Serum bicarb is 37, temp is 72 chronic hypercapnic respiratory failure. White cell count is not elevated. 05/31/2021, the patient is being seen for a follow-up. The patient is less short of breath compared to yesterday. She is diuresing well and she is currently on Lasix 40 mg IV every 12 hours. She is also on DuoNeb nebulized treatments around the clock. No significant cough sputum production chest tightness or wheezing. The fluid balance over the past 24 hours is -2.9 L. The blood work shows a BUN of 18 with a creatinine of 0.5. Electrolytes are showing a component of metabolic alkalosis with a bicarb of 38. The white cell, 6.2 with a hemoglobin of 11.7. No other new complaints otherwise for now. No nausea. No vomiting. No abdominal pain. Her pulse ox is 97% on 5 L of oxygen by nasal cannula. On 06/01/2021 patient seen in follow-up. She is sitting up in chair, breathing comfortably she is on 3 L of oxygen pulse ox is 94%, afebrile, hemodynamically stable, she does get short of breath with exertion. She's been getting to the bathroom to void. She is awake and alert, oriented 3, remains on diuretics in the form of Lasix, 40 mg twice daily, net fluid balance is -1.9 L over the last 24 hours. However patient still has quite significant edema involving abdominal wall and lower extremities. Abdominal ultrasound showed no free fluid in the abdomen The patient is seen today 06/02/2021 in follow-up. She is currently sitting up in a chair at the bedside. Awake and alert in no acute distress. She is maintaining O2 saturations in the mid 90s on 2 L/m per nasal cannula. She's afebrile. Hemodynamically stable. White count 4.9. Hemoglobin 11.9. Sodium 139. Potassium 4.1. Creatinine 0.65. She remains on DuoNeb inhalations, Symbicort, heparin for DVT prophylaxis. Continued on Lasix 40 mg IV every 8 hours. He is currently in a 3.3 liter negative balance. Weight is down approximately 4 kg. Less edematous. 06/03/2020 she is feeling much better. The patient remains on IV Lasix. The patient is another 3 L negative balance over the past 24 hours, is doing better. She is less edematous and her abdomen is less distended. No shortness of breath and no chest pain. No angina. No palpitation. Electrolytes are noted. The patient developed some metabolic alkalosis. Meanwhile, her BUN is still 18 with a normal creatinine. No major electrodes imbalance for now. She is in a negative fluid balance and she is responding nicely to diuretics. She is on 2 L of oxygen by nasal cannula. Objective - Vital Signs Vital signs: Vital Signs Temp 98.7 F 06/03/21 03:24 Pulse 74 06/03/21 03:24 Resp 18 06/03/21 03:24 BP 123/65 06/03/21 03:24 Pulse Ox 96 06/03/21 03:24 Intake & Output 06/02/21 06/03/21 06/03/21 18:59 06:59 18:59 Intake Total 720 Output Total 2750 1600 Balance -2029 -1599 Weight 158.8 kg Intake: Oral 720 Output: Urine 2750 1600 Other: Voiding Method Toilet # Voids 2 - Exam GENERAL EXAM: Alert, pleasant, morbidly obese 51-year-old white female comfortable in no apparent distress currently on 5 L of oxygen with a pulse ox of 95%. Patient does become dyspneic with ambulation, has a congested cough HEAD: Normocephalic/atraumatic. EYES: Normal reaction of pupils, equal size. Conjunctiva pink, sclera white. NOSE: Clear with pink turbinates. THROAT: No erythema or exudates. NECK: No masses, no JVD, no thyroid enlargement, no adenopathy. CHEST: No chest wall deformity. Symmetrical expansion. LUNGS: Equal air entry with bibasilar crackles, wheezing on forced exhale maneuver CVS: Regular rate and rhythm, normal S1 and S2, no gallops, no murmurs, no rubs ABDOMEN: Soft, nontender. No hepatosplenomegaly, normal bowel sounds, no guarding or rigidity. His anterior abdominal wall edema, which is pitting, no direct tenderness, no rebound tenderness, no guarding EXTREMITIES: No clubbing, no cyanosis, 2+ pulses and upper and lower extremities. There are mild changes of chronic venous stasis in lower extremities and +1 pretibial edema MUSCULOSKELETAL: Muscle strength and tone normal. SPINE: No scoliosis or deformity SKIN: No rashes CENTRAL NERVOUS SYSTEM: Alert and oriented -3. No focal deficits, tone is normal in all 4 extremities. PSYCHIATRIC: Alert and oriented -3. Appropriate affect. Intact judgment and insight. - Labs CBC & Chem 7: 06/02/21 08:27 06/02/21 08:27 Assessment and Plan Plan: 1 acute COPD exacerbation with secondary shortness of breath. Patient is an ex- smoker and she quit smoking 3 years back. She is currently on Advair and pro- air rescue inhaler on an as-needed basis. No acute COPD exacerbation improved. The patient was also found to be massive fluid overload. She is responding nicely to diuretics. 2 morbid obesity 3 obstructive sleep apnea, AHI 15, supposed utilizes CPAP pressure of 13 cm of water and will not utilizing CPAP therapy on outpatient basis 4 chronic secondary pulmonary hypertension, awaiting a reevaluation of the PA pressures. LV function is normal. ProBNP level was nonelevated. 5 hypertension 6 history of reflux sympathetic dystrophy diagnosed in 2016 7 abnormal MRI of the brain with several lesions, nondiagnostic for MS based on previous evaluation 8 chronic peripheral neuropathy and back pain 9 complex migraines 10 debility secondary to above-mentioned comorbidities Plan DuoNeb nebulized treatments, utilize DuoNeb's every 6 hours IV Lasix 40 mg hours for another 24 hours Monitor urine output Monitor fluid balance Monitor electrolytes Monitor electrolytes and replace accordingly We'll may need to switch this patient oral Lasix with next 24 hours Encourage increasing level of activity as tolerated Outpatient CPAP therapy
[2021-06-03 11:31] LABS: African American GFR (CKD) >90 (>60 ml/min/1.73 sqM); Anion Gap 6 mmol/L; Blood Urea Nitrogen 21 mg/dL (7-17); Calcium 9.6 mg/dL (8.4-10.2); Carbon Dioxide 36 mmol/L (22-30); Chloride 97 mmol/L (98-107); Glucose 142 mg/dL (74-99); Non-African American GFR(CKD) >90 (>60 ml/min/1.73 sqM); Potassium 4.4 mmol/L (3.5-5.1); Sodium 139 mmol/L (137-145)
[2021-06-03 13:14] LABS: Anisocytosis Slight; Basophils # (A) 0.1 k/uL (0-0.2); Basophils % (A) 2 %; Eosinophils # (A) 0.1 k/uL (0-0.7); Eosinophils % (A) 1 %; HCT 43.9 % (34.0-46.0); HGB 12.2 gm/dL (11.4-16.0); Hypochromasia Marked; Lymphocytes # (A) 1.1 k/uL (1.0-4.8); Lymphocytes % (A) 22 %; MCH 21.7 pg (25.0-35.0); MCHC 27.9 g/dL (31.0-37.0); MCV 77.7 fL (80.0-100.0); Mean Platelet Volume 10.3; Microcytosis Slight; Monocytes # (A) 0.5 k/uL (0-1.0); Monocytes % (A) 10 %; Neutrophils # (A) 3.2 k/uL (1.3-7.7); Neutrophils % (A) 63 %; Platelet Count 128 k/uL (150-450); RBC 5.65 m/uL (3.80-5.40); RDW 18.5 % (11.5-15.5); WBC 5.1 k/uL (3.8-10.6)
[2021-06-03] MEDS: BUTALB/APAP/CAFF 50-325-40MG TAB PO PRN (20:24)
[2021-06-03] MEDS: DULoxetine HCL 60 MG CAPSULE.DR PO SCH (20:25)
[2021-06-03] MEDS: ARIPiprazole 5 MG TAB PO SCH (20:25)
[2021-06-03] MEDS: ZOLPIDEM 5 MG TAB PO SCH (20:25)
[2021-06-03] MEDS: ATORVASTATIN 20 MG TAB PO SCH (20:25)
[2021-06-04] MEDS: LEVOTHYROXINE 50 MCG TAB PO SCH (05:52)
[2021-06-04] MEDS: SYMBICORT 160-4.5 MCG INHALER INHALATION SCH ×2 (07:42→20:28)
[2021-06-04] MEDS: FUROSEMIDE 10 MG/ML 4 ML VIAL IV SCH ×2 (09:07→15:07)
[2021-06-04] MEDS: VENLAFAXINE HCL ER 37.5 MG CAP PO SCH (09:07)
[2021-06-04] MEDS: METOPROLOL TARTRATE 12.5 MG TAB PO SCH ×2 (09:07→21:31)
[2021-06-04] MEDS: ASPIRIN 81 MG PO SCH (09:07)
[2021-06-04] MEDS: VERAPAMIL SR 180 MG TABLET.ER PO SCH (09:07)
[2021-06-04] MEDS: TOPIRAMATE 100 MG TAB PO SCH ×2 (09:07→21:30)
[2021-06-04] MEDS: POTASSIUM CHLORIDE ER 10 MEQ TAB.ER.PRT PO SCH (09:07)
[2021-06-04] MEDS: PREGABALIN 75 MG CAP PO SCH ×3 (09:07→21:30)
[2021-06-04] MEDS: HEPARIN SODIUM,PORCINE/PF 5,000 UNIT/0.5 ML SYRINGE SQ SCH ×3 (09:08→23:18)
[2021-06-04] MEDS: HYDROcodone/APAP 10-325MG 1 EACH TAB PO PRN ×2 (09:10→18:59)
[2021-06-04] MEDS: FERROUS SULFATE 325 MG TAB PO SCH (09:11)
--- NOTE | 2021-06-04 10:47 | P.PN ---
Subjective Progress Note Date: 06/04/21 This is a 51-year-old female patient, known to me from previous hospital admissions, as the patient is known to have COPD, chronic hypoxic respiratory failure and obstructive sleep apnea. She is morbidly obese and her body mass index is 64.3. She has also other comorbidities including RSD, hypertension and hyperlipidemia and osteoarthritis. The patient came in to the hospital because of worsening shortness of breath and abdominal distention a few days duration. She feels that she is getting more edematous in her abdomen is getting also more edematous and swallow. No fever. No chills. No significant cough or sputum production. No chest pain. Chest x-ray showed some cardiomegaly and mild four- vessel congestion. There is also probably a small left-sided pleural effusion. CAT scan of the abdomen showed generalized anasarca. CTA of the chest was done and it showed some small breathing motion artifact. No evidence of any pulmonary embolism. Patient is currently on Lasix with a dose of 40 mg every 12 hours. Troponin times is been negative. ProBNP level was 311. Renal function is stable creatinine of 0.4 and again of 19. Serum bicarb is 37, temp is 72 chronic hypercapnic respiratory failure. White cell count is not elevated. 05/31/2021, the patient is being seen for a follow-up. The patient is less short of breath compared to yesterday. She is diuresing well and she is currently on Lasix 40 mg IV every 12 hours. She is also on DuoNeb nebulized treatments around the clock. No significant cough sputum production chest tightness or wheezing. The fluid balance over the past 24 hours is -2.9 L. The blood work shows a BUN of 18 with a creatinine of 0.5. Electrolytes are showing a component of metabolic alkalosis with a bicarb of 38. The white cell, 6.2 with a hemoglobin of 11.7. No other new complaints otherwise for now. No nausea. No vomiting. No abdominal pain. Her pulse ox is 97% on 5 L of oxygen by nasal cannula. On 06/01/2021 patient seen in follow-up. She is sitting up in chair, breathing comfortably she is on 3 L of oxygen pulse ox is 94%, afebrile, hemodynamically stable, she does get short of breath with exertion. She's been getting to the bathroom to void. She is awake and alert, oriented 3, remains on diuretics in the form of Lasix, 40 mg twice daily, net fluid balance is -1.9 L over the last 24 hours. However patient still has quite significant edema involving abdominal wall and lower extremities. Abdominal ultrasound showed no free fluid in the abdomen The patient is seen today 06/02/2021 in follow-up. She is currently sitting up in a chair at the bedside. Awake and alert in no acute distress. She is maintaining O2 saturations in the mid 90s on 2 L/m per nasal cannula. She's afebrile. Hemodynamically stable. White count 4.9. Hemoglobin 11.9. Sodium 139. Potassium 4.1. Creatinine 0.65. She remains on DuoNeb inhalations, Symbicort, heparin for DVT prophylaxis. Continued on Lasix 40 mg IV every 8 hours. He is currently in a 3.3 liter negative balance. Weight is down approximately 4 kg. Less edematous. 06/03/2020 she is feeling much better. The patient remains on IV Lasix. The patient is another 3 L negative balance over the past 24 hours, is doing better. She is less edematous and her abdomen is less distended. No shortness of breath and no chest pain. No angina. No palpitation. Electrolytes are noted. The patient developed some metabolic alkalosis. Meanwhile, her BUN is still 18 with a normal creatinine. No major electrodes imbalance for now. She is in a negative fluid balance and she is responding nicely to diuretics. She is on 2 L of oxygen by nasal cannula. 06/04/2021, patient has done extremely well and she continues to improve. She is losing approximately 3 L and fluid on a daily basis with diuretics. She has responded very nicely to diuretics. She feels better. She feels less restricted and less short of breath. Currently she is on room air oxygen. Serum bicarbonate of 36. No significant electrolyte imbalance. She remains on Lasix IV 40 mg every 8 hours. Objective - Vital Signs Vital signs: Vital Signs Temp 98.4 F 06/04/21 08:58 Pulse 77 06/04/21 08:58 Resp 20 06/04/21 08:58 BP 104/55 06/04/21 08:58 Pulse Ox 94 L 06/04/21 08:58 Intake & Output 07/09/1406/04/21 06/04/21 18:59 06:59 18:59 Intake Total 1010 1080 Output Total 4600 4400 Balance -3590 1080 -4400 Weight 157.6 kg Intake: Intake, IV Titration 50 Amount ceFAZolin 1,000 mg In 50 Sodium Chloride 0.9% 50 ml @ 100 mls/hr IVPB Q8HR [facility] Rx#:[id number] Oral 960 1080 Output: Urine 4600 4400 Other: Voiding Method Toilet Toilet # Voids 2 1 - Exam GENERAL EXAM: Alert, pleasant, morbidly obese 51-year-old white female comfortable in no apparent distress currently on 5 L of oxygen with a pulse ox of 95%. Patient does become dyspneic with ambulation, has a congested cough HEAD: Normocephalic/atraumatic. EYES: Normal reaction of pupils, equal size. Conjunctiva pink, sclera white. NOSE: Clear with pink turbinates. THROAT: No erythema or exudates. NECK: No masses, no JVD, no thyroid enlargement, no adenopathy. CHEST: No chest wall deformity. Symmetrical expansion. LUNGS: Equal air entry with bibasilar crackles, wheezing on forced exhale maneuver CVS: Regular rate and rhythm, normal S1 and S2, no gallops, no murmurs, no rubs ABDOMEN: Soft, nontender. No hepatosplenomegaly, normal bowel sounds, no guarding or rigidity. His anterior abdominal wall edema, which is pitting, no direct tenderness, no rebound tenderness, no guarding EXTREMITIES: No clubbing, no cyanosis, 2+ pulses and upper and lower extremities. There are mild changes of chronic venous stasis in lower extremities and +1 pretibial edema MUSCULOSKELETAL: Muscle strength and tone normal. SPINE: No scoliosis or deformity SKIN: No rashes CENTRAL NERVOUS SYSTEM: Alert and oriented -3. No focal deficits, tone is normal in all 4 extremities. PSYCHIATRIC: Alert and oriented -3. Appropriate affect. Intact judgment and insight. - Labs CBC & Chem 7: 06/03/21 10:25 06/03/21 10:25 Labs: Abnormal Lab Results - Last 24 Hours (Table) 06/03/21 06/03/21 Range/Units 10:25 10:25 RBC 5.65 H (3.80-5.40) m/uL MCV 77.7 L (80.0-100.0) fL MCH 21.7 L (25.0-35.0) pg MCHC 27.9 L (31.0-37.0) g/dL RDW 18.5 H (11.5-15.5) % Plt Count 128 L (150-450) k/uL Chloride 97 L (98-107) mmol/L Carbon Dioxide 36 H (22-30) mmol/L BUN 21 H (7-17) mg/dL Glucose 142 H (74-99) mg/dL Assessment and Plan Plan: 1 acute COPD exacerbation with secondary shortness of breath. Patient is an ex- smoker and she quit smoking 3 years back. She is currently on Advair and pro- air rescue inhaler on an as-needed basis. No acute COPD exacerbation improved. The patient was also found to be massive fluid overload. She is responding nicely to diuretics. She has diuresed very nicely over the past several days and she is feeling much better and she remains in a negative fluid balance. 2 morbid obesity 3 obstructive sleep apnea, AHI 15, supposed utilizes CPAP pressure of 13 cm of water and will not utilizing CPAP therapy on outpatient basis 4 chronic secondary pulmonary hypertension, awaiting a reevaluation of the PA pressures. LV function is normal. ProBNP level was nonelevated. 5 hypertension 6 history of reflux sympathetic dystrophy diagnosed in 2016 7 abnormal MRI of the brain with several lesions, nondiagnostic for MS based on previous evaluation 8 chronic peripheral neuropathy and back pain 9 complex migraines 10 debility secondary to above-mentioned comorbidities Plan DuoNeb nebulized treatments, utilize DuoNeb's every 6 hours I will suggest continuing the same treatment and discharged home either today or tomorrow. Probably keeping her for another 24 hours for IV diuretics may be of benefit. No major electrolyte disturbance. No significant metabolic alkalosis. Monitor urine output Monitor fluid balance Monitor electrolytes Monitor electrolytes and replace accordingly We'll may need to switch this patient oral Lasix with next 24 hours Encourage increasing level of activity as tolerated Outpatient CPAP therapy
--- NOTE | 2021-06-04 14:56 | P.PN ---
Subjective Progress Note Date: 06/03/21 Principal diagnosis: Increased abdominal distention and anasarca/ fluid overload. Likely secondary to right heart failure Severe pulmonary hypertension and moderate to severe TR . Acute on chronic hypoxic and hypercapnic respiratory failure on 3 L oxygen via nasal cannula Acute COPD exacerbation. 51-year-old female with history of COPD on oxygen 3 L via nasal cannula, reflex sympathetic dystrophy, hypertension, hypothyroidism, osteoarthritis, hyperl ipidemia, obstructive sleep apnea on CPAP and bilateral peripheral neuropathy and history of previous stroke, anxiety/depression currently everyday smoker and other multiple medical problems presents to ER with complaints of shortness of breath and abdominal wall distention for the past 2 to 3 days. Patient is also complaining of leg swelling. Patient states that her symptoms started about 2 to 3 days and is gradually getting worse which made her to come to ER. Denies any complaints of chest pain. No fever no chills. No cough or sputum production. No headache or dizziness or lightheadedness. Patient does smoke on a daily basis but quit recently. Denies any alcohol use. No history of prior liver disease. Chest x-ray showed cardiomegaly and pulmonary vascular prominence is most sugges tive of edema. Probable small left pleural effusion. Consider early CHF. CT of the abdomen pelvis showed new generalized anasarca change. Sigmoid diverticulosis without acute diverticulitis. CT angiogram of the chest was done due to elevated D-dimer level showed limitation due to small breathing motion and artifact from large body habitus. No definite PE. Mild cardiomegaly with small right and trace left effusion and some patchy densities in the lower lungs. Generalized anasarca. Correlate for third spacing/fluid overload state and of mild CHF. Objective - Vital Signs Vital signs: Vital Signs Temp 98.7 F 06/03/21 03:24 Pulse 71 06/03/21 12:00 Resp 18 06/03/21 12:00 BP 130/60 06/03/21 12:00 Pulse Ox 96 06/03/21 12:00 Intake & Output 06/02/21 06/03/21 06/03/21 18:59 06:59 18:59 Intake Total 720 1010 Output Total 2750 1600 4600 Balance -2029 Weight 158.8 kg Intake: Intake, IV Titration 50 Amount ceFAZolin 1,000 mg In 50 Sodium Chloride 0.9% 50 ml @ 100 mls/hr IVPB Q8HR [facility] Rx#:[id number] Oral 720 960 Output: Urine 2750 1600 4600 Other: Voiding Method Toilet Toilet # Voids 2 2 - Exam Patient is lying in the bed comfortably, no acute distress, awake alert and oriented.. Morbidly obese HEENT: Normocephalic. Neck is supple. Pupils reactive. Nostrils clear. Oral cavity is moist. Ears reveal no drainage. Neck reveals no JVD, carotid bruits, or thyromegaly. CHEST EXAMINATION: Trachea is central. Symmetrical expansion., no wheezing. No rhonchi. Bibasilar diminished air entry. CARDIAC: Normal S1, S2 with no gallops. No murmurs ABDOMEN: Soft. Bowel sounds normal. No organomegaly. No abdominal bruits. Increased abdominal girth. Extremities: 4+ bilateral edema.. No clubbing or cyanosis Neurologically awake, alert, oriented x3 with well-coordinated movements. No focal deficits noted Skin: No rash or skin lesions. Psychiatric: Coperative. Nonsuicidal Musculoskeletal: No joint swelling or deformity. Normal range of motion. - Labs CBC & Chem 7: 06/03/21 10:25 07 10:25 Labs: Abnormal Lab Results - Last 24 Hours (Table) 06/03/21 06/03/21 Range/Units 10:25 10:25 RBC 5.65 H (3.80-5.40) m/uL MCV 77.7 L (80.0-100.0) fL MCH 21.7 L (25.0-35.0) pg MCHC 27.9 L (31.0-37.0) g/dL RDW 18.5 H (11.5-15.5) % Plt Count 128 L (150-450) k/uL Chloride 97 L (98-107) mmol/L Carbon Dioxide 36 H (22-30) mmol/L BUN 21 H (7-17) mg/dL Glucose 142 H (74-99) mg/dL Assessment and Plan Assessment: Increased abdominal distention and anasarca/ fluid overload. Likely secondary to right heart failure Severe pulmonary hypertension and moderate to severe TR . Acute on chronic hypoxic and hypercapnic respiratory failure on 3 L oxygen via nasal cannula Acute COPD exacerbation. improving Elevated D-dimer level. CTA chest negative for PE. Microcytic anemia with hemoglobin 11.7 Hypertension Hyperlipidemia Obstructive sleep apnea on CPAP Hypothyroidism History of CVA/TIA with no residual weakness Anxiety/depression Current everyday smoker Chronic pain Reflex sympathetic dystrophy Morbid obesity with BMI 61.1 Bilateral peripheral neuropathy nondiabetic Restless leg syndrome DVT prophylaxis with heparin subcu Plan: Patient will be continued on Lasix 40 mg every 8 hourly. Continue with oxygen supplementation.. Strict I&O's. Continue with duo nebs Continue with home medications Synthroid pain management with [place] 10, 3 times daily as needed. 2D echocardiogram report as above. Cardiology and pulmonary is on board.
--- NOTE | 2021-06-04 18:51 | P.PN ---
Subjective Progress Note Date: 06/04/21 Principal diagnosis: Increased abdominal distention and anasarca/ fluid overload. Likely secondary to right heart failure Severe pulmonary hypertension and moderate to severe TR . Acute on chronic hypoxic and hypercapnic respiratory failure on 3 L oxygen via nasal cannula Acute COPD exacerbation. 51-year-old female with history of COPD on oxygen 3 L via nasal cannula, reflex sympathetic dystrophy, hypertension, hypothyroidism, osteoarthritis, hyperl ipidemia, obstructive sleep apnea on CPAP and bilateral peripheral neuropathy and history of previous stroke, anxiety/depression currently everyday smoker and other multiple medical problems presents to ER with complaints of shortness of breath and abdominal wall distention for the past 2 to 3 days. Patient is also complaining of leg swelling. Patient states that her symptoms started about 2 to 3 days and is gradually getting worse which made her to come to ER. Denies any complaints of chest pain. No fever no chills. No cough or sputum production. No headache or dizziness or lightheadedness. Patient does smoke on a daily basis but quit recently. Denies any alcohol use. No history of prior liver disease. Chest x-ray showed cardiomegaly and pulmonary vascular prominence is most sugges tive of edema. Probable small left pleural effusion. Consider early CHF. CT of the abdomen pelvis showed new generalized anasarca change. Sigmoid diverticulosis without acute diverticulitis. CT angiogram of the chest was done due to elevated D-dimer level showed limitation due to small breathing motion and artifact from large body habitus. No definite PE. Mild cardiomegaly with small right and trace left effusion and some patchy densities in the lower lungs. Generalized anasarca. Correlate for third spacing/fluid overload state and of mild CHF. 06/04/2021 Patient is seen and evaluated in room at bedside; patient has done extremely well and she continues to improve. She is losing approximately 3 L and fluid on a daily basis with diuretics. She has responded very nicely to diuretics. She feels better. She feels less restricted and less short of breath. Vital signs are reviewed; Currently she is on room air oxygen saturating at 94%. Temperature 98.4, pulse 77, respiration 20 and blood pressure of 104/55 Serum bicarbonate of 36. No significant electrolyte imbalance. She remains on Lasix IV 40 mg every 8 hours. Pulmonary and board and recommending to continue IV diuretic therapy in form of Lasix 40 mg every 8 hours for another 24 hours prior to switching to oral Lasix Plan for discharge home in next 24 hours once switched to oral diuretic therapy Objective - Vital Signs Vital signs: Vital Signs Temp 97.9 F 06/04/21 11:14 Pulse 66 06/04/21 11:14 Resp 16 06/04/21 11:14 BP 120/56 06/04/21 11:14 Pulse Ox 92 L 06/04/21 11:14 Intake & Output 06/03/21 06/04/21 06/04/21 18:59 06:59 18:59 Intake Total 1010 1080 Output Total 4600 5000 Balance -3590 1080 -5000 Weight 157.6 kg Intake: Intake, IV Titration 50 Amount ceFAZolin 1,000 mg In 50 Sodium Chloride 0.9% 50 ml @ 100 mls/hr IVPB Q8HR SUMEET Rx#:[id number] Oral 960 1080 Output: Urine 4600 5000 Other: Voiding Method Toilet Toilet Toilet # Voids 2 1 - Exam Patient is lying in the bed comfortably, no acute distress, awake alert and oriented.. Morbidly obese HEENT: Normocephalic. Neck is supple. Pupils reactive. Nostrils clear. Oral cavity is moist. Ears reveal no drainage. Neck reveals no JVD, carotid bruits, or thyromegaly. CHEST EXAMINATION: Trachea is central. Symmetrical expansion., no wheezing. No rhonchi. Bibasilar diminished air entry. CARDIAC: Normal S1, S2 with no gallops. No murmurs ABDOMEN: Soft. Bowel sounds normal. No organomegaly. No abdominal bruits. Increased abdominal girth. Extremities: 4+ bilateral edema.. No clubbing or cyanosis Neurologically awake, alert, oriented x3 with well-coordinated movements. No focal deficits noted Skin: No rash or skin lesions. Psychiatric: Coperative. Nonsuicidal Musculoskeletal: No joint swelling or deformity. Normal range of motion. - Labs CBC & Chem 7: 06/03/21 10:25 06/03/21 10:25 Assessment and Plan Assessment: Increased abdominal distention and anasarca/ fluid overload. Likely secondary to right heart failure Severe pulmonary hypertension and moderate to severe TR . Acute on chronic hypoxic and hypercapnic respiratory failure on 3 L oxygen via nasal cannula Acute COPD exacerbation. improving Elevated D-dimer level. CTA chest negative for PE. Microcytic anemia with hemoglobin 11.7 Hypertension Hyperlipidemia Obstructive sleep apnea on CPAP Hypothyroidism History of CVA/TIA with no residual weakness Anxiety/depression Current everyday smoker Chronic pain Reflex sympathetic dystrophy Morbid obesity with BMI 61.1 Bilateral peripheral neuropathy nondiabetic Restless leg syndrome DVT prophylaxis with heparin subcu Plan: Patient will be continued on Lasix 40 mg every 8 hourly. Continue with oxygen supplementation.. Strict I&O's. Continue with duo nebs Continue with home medications Synthroid pain management with [place] 10, 3 times daily as needed. 2D echocardiogram report as above. Cardiology and pulmonary is on board.
[2021-06-04] MEDS: ZOLPIDEM 5 MG TAB PO SCH (21:30)
[2021-06-04] MEDS: DULoxetine HCL 60 MG CAPSULE.DR PO SCH (21:30)
[2021-06-04] MEDS: ATORVASTATIN 20 MG TAB PO SCH (21:30)
[2021-06-04] MEDS: ARIPiprazole 5 MG TAB PO SCH (21:31)
[2021-06-05 00:58] VITALS: RESP 18
[2021-06-05] MEDS: FUROSEMIDE 10 MG/ML 4 ML VIAL IV SCH ×2 (01:04→08:56)
[2021-06-05] MEDS: HYDROcodone/APAP 10-325MG 1 EACH TAB PO PRN ×2 (02:39→10:27)
[2021-06-05 05:50] LABS: African American GFR (CKD) >90 (>60 ml/min/1.73 sqM); Anion Gap 6 mmol/L; Blood Urea Nitrogen 23 mg/dL (7-17); Calcium 9.2 mg/dL (8.4-10.2); Carbon Dioxide 35 mmol/L (22-30); Chloride 98 mmol/L (98-107); Glucose 134 mg/dL (74-99); Non-African American GFR(CKD) >90 (>60 ml/min/1.73 sqM); Potassium 4.4 mmol/L (3.5-5.1); Sodium 139 mmol/L (137-145)
[2021-06-05] MEDS: LEVOTHYROXINE 50 MCG TAB PO SCH (06:39)
[2021-06-05] MEDS: BUTALB/APAP/CAFF 50-325-40MG TAB PO PRN (06:40)
[2021-06-05] MEDS: SYMBICORT 160-4.5 MCG INHALER INHALATION SCH (07:47)
[2021-06-05] MEDS: METOPROLOL TARTRATE 12.5 MG TAB PO SCH (08:54)
[2021-06-05] MEDS: ASPIRIN 81 MG PO SCH (08:54)
[2021-06-05] MEDS: HEPARIN SODIUM,PORCINE/PF 5,000 UNIT/0.5 ML SYRINGE SQ SCH (08:54)
[2021-06-05] MEDS: VENLAFAXINE HCL ER 37.5 MG CAP PO SCH (08:55)
[2021-06-05] MEDS: VERAPAMIL SR 180 MG TABLET.ER PO SCH (08:55)
[2021-06-05] MEDS: TOPIRAMATE 100 MG TAB PO SCH (08:55)
[2021-06-05] MEDS: POTASSIUM CHLORIDE ER 10 MEQ TAB.ER.PRT PO SCH (08:55)
[2021-06-05] MEDS: PREGABALIN 75 MG CAP PO SCH (08:55)
[2021-06-05 09:35] VITALS: TEMP 98.4
--- NOTE | 2021-06-05 11:02 | P.DS ---
Providers Date of admission: 05/29/21 16:12 Expected date of discharge: 06/05/21 Attending physician: Erickson Li Consults: 05/29/21 18:33 Consult Physician Routine Consulting Provider: Ivis Benito Consult Reason/Comments: COPD Do you want consulting provider notified?: Yes, Notify in am Primary care physician: Erickson Li [facility] Course: Final Diagnoses: Abdominal edema,anasarca due to severe fluid overload, suspect secondary to acute right sided heart failure exacerbation; echo reported a technically difficult study with suboptimal views, unable to comment on LV function. Acute on chronic hypoxic and hypercapnic respiratory failure, secondary to acute COPD exacerbation and fluid overload. Acute COPD exacerbation Pulmonary hypertension, severe Moderate to severe tricuspid regurgitation Elevated D-dimer level. CTA chest negative for PE. Hypertension Hyperlipidemia Obstructive sleep apnea on CPAP Hypothyroidism History of CVA/TIA with no residual weakness Anxiety/depression Chronic pain Reflex sympathetic dystrophy Morbid obesity with BMI 64.3 Chronic Bilateral peripheral neuropathy, nondiabetic Chronic back pain Restless leg syndrome Medical debility History of nicotine dependence, quit 3 years ago abnormal MRI of the brain with several lesions, nondiagnostic for MS based on previous evaluation Hospital course:This is a 51-year-old female admitted with hypoxic respiratory failure, abdominal wall edema, anasarca, fluid overload and multiple other medical issues. Diuresing well on Lasix IV push with 24-hour I&O reflecting a negative fluid balance.Renal function stable. BNP 311, troponins negative 3. Echo pending. Maintaining O2 sats in the 90s on 5 L nasal cannula. Afebrile, normal WBC. 05/31/2021 Evaluated by cardiology and pulmonary with recommendations noted and appreciated. Echo reported a technically difficult study with suboptimal views, unable to comment on LV function, moderate to severe tricuspid regurgitation, severe pulmonary hypertension. Patient reports no change in abdominal distention. Diuresing well on Lasix IV push with 24-hour I&O reflecting a negative fluid balance of 2920. Abdominal ultrasound ordered. Maintaining O2 sats in the 90s on 5 L nasal cannula. Afebrile, normal WBC. Hemoglobin 11.7, platelets 187. Renal function stable. Maintained on aggressive diuresing with Lasix IV push every 8 hours, losing approximately 3 L daily. Feels better, maintaining O2 sats in the 90s on 2 L nasal cannula. Denies chest pain, palpitations or increased shortness of breath. Outpatient CPAP therapy as per pulmonary. Patient will be discharged home in a stable condition with guarded prognosis pending final DC recommendations and clearance from pulmonary. The impression and plan of care has been dictated as directed. : I performed a history and examination of this patient, discussed the same with the dictator. I agree with the dictator's note ,documented as a scribe. Any additional findings or plans will be noted. Patient Condition at Discharge: Stable Plan - Discharge Summary Discharge Rx Participant: No New Discharge Prescriptions: New Furosemide [Lasix] 40 mg PO TID #90 tablet Continue Topiramate [Topamax] 100 mg PO BID DULoxetine HCL [Cymbalta] 60 mg PO HS Butalb/APAP/Caff 50-325-40Mg [Fioricet 50-325-40] 1 tab PO Q8HR PRN PRN Reason: Migraine Headache Pregabalin [Lyrica] 150 mg PO TID Loratadine [Claritin] 10 mg PO DAILY Aspirin EC [Ecotrin Low Dose] 81 mg PO DAILY HYDROcodone/APAP 10-325MG [[place] 10-325] 1 tab PO TID PRN PRN Reason: Pain Venlafaxine HCl ER [Effexor XR] 37.5 mg PO DAILY Metoprolol Tartrate [Lopressor] 12.5 mg PO BID Atorvastatin [Lipitor] 20 mg PO HS ARIPiprazole [Abilify] 5 mg PO HS Zolpidem [Ambien] 10 mg PO HS Levothyroxine Sodium [Synthroid] 50 mcg PO DAILY Potassium Chloride 10 meq PO DAILY Ferrous Sulfate [Iron (65 MG Elemental)] 325 mg PO BID Fluticasone/Salmeterol [Advair 500-50 Diskus] 1 puff INHALATION RT-BID rOPINIRole HCL [Requip] 1 mg PO HS tiZANidine [Zanaflex] 4 mg PO BID PRN PRN Reason: Muscle Spasm Verapamil HCl [Verapamil ER] 180 mg PO DAILY Albuterol Sulfate [Albuterol Sulfate Hfa] 2 puff PO RT-Q4H PRN PRN Reason: Shortness Of Breath Discontinued Ibuprofen 800 mg PO TID amLODIPine BESYLATE/BENAZEPRIL [amLODIPine BESYLATE/BENAZEPRIL 5-10 MG] 1 tab PO DAILY Furosemide [Lasix] 40 mg PO DAILY Discharge Medication List Butalb/APAP/Caff 50-325-40Mg [Fioricet 50-325-40] 1 tab PO Q8HR PRN 05/22/17 [History] DULoxetine HCL [Cymbalta] 60 mg PO HS 05/22/17 [History] Topiramate [Topamax] 100 mg PO BID 05/22/17 [History] Pregabalin [Lyrica] 150 mg PO TID 01/12/18 [History] Aspirin EC [Ecotrin Low Dose] 81 mg PO DAILY 06/06/18 [History] Loratadine [Claritin] 10 mg PO DAILY 06/06/18 [History] HYDROcodone/APAP 10-325MG [[place] 10-325] 1 tab PO TID PRN 08/18/19 [History] ARIPiprazole [Abilify] 5 mg PO HS 04/27/20 [History] Atorvastatin [Lipitor] 20 mg PO HS 04/27/20 [History] Metoprolol Tartrate [Lopressor] 12.5 mg PO BID 04/27/20 [History] Venlafaxine HCl ER [Effexor XR] 37.5 mg PO DAILY 04/27/20 [History] Zolpidem [Ambien] 10 mg PO HS 04/27/20 [History] Ferrous Sulfate [Iron (65 MG Elemental)] 325 mg PO BID 04/21/21 [History] Fluticasone/Salmeterol [Advair 500-50 Diskus] 1 puff INHALATION RT-BID 04/21/21 [History] Levothyroxine Sodium [Synthroid] 50 mcg PO DAILY 04/21/21 [History] Potassium Chloride 10 meq PO DAILY 04/21/21 [History] rOPINIRole HCL [Requip] 1 mg PO HS 04/21/21 [History] tiZANidine [Zanaflex] 4 mg PO BID PRN 04/21/21 [History] Albuterol Sulfate [Albuterol Sulfate Hfa] 2 puff PO RT-Q4H PRN 05/29/21 [History] Verapamil HCl [Verapamil ER] 180 mg PO DAILY 05/29/21 [History] Furosemide [Lasix] 40 mg PO TID #90 tablet 06/05/21 [Rx] Follow up Appointment(s)/Referral(s): [facility] [REFERRING] - (Will help with setting up home services. ) Erickson Li DO [Primary Care Provider] - 06/08/21 11:00 am [facility] [NON-STAFF] - Ambulatory/Diagnostic Orders: Complete Blood Count w/diff [LAB.AMB] Time Frame: 3 Days, Location: None Selected Patient Instructions/Handouts: Heart Failure (DC) Activity/Diet/Wound Care/Special Instructions: O2 Sat on RA after ambulation: COnfirm Pulm F/U apt. prior to dc. Discharge/Stand Alone Forms: Who Do I Call?
[2021-06-05 11:34] VITALS: BP 119/69; PULSE 68
[2021-06-05 11:48] VITALS: BMI 61.0
[2021-06-05] MEDS ORDERED: FUROSEMIDE 40 MG TAB PO SCH (12:30)
--- NOTE | 2021-06-05 14:26 | P.PN ---
Subjective Progress Note Date: 06/05/21 Principal diagnosis: Acute exacerbation of COPD, fluid overload This is a 51-year-old female patient, known to me from previous hospital admissions, as the patient is known to have COPD, chronic hypoxic respiratory failure and obstructive sleep apnea. She is morbidly obese and her body mass index is 64.3. She has also other comorbidities including RSD, hypertension and hyperlipidemia and osteoarthritis. The patient came in to the hospital because of worsening shortness of breath and abdominal distention a few days duration. She feels that she is getting more edematous in her abdomen is getting also more edematous and swallow. No fever. No chills. No significant cough or sputum production. No chest pain. Chest x-ray showed some cardiomegaly and mild four-vessel congestion. There is also probably a small left-sided pleural effusion. CAT scan of the abdomen showed generalized anasarca. CTA of the chest was done and it showed some small breathing motion artifact. No evidence of any pulmonary embolism. Patient is currently on Lasix with a dose of 40 mg e very 12 hours. Troponin times is been negative. ProBNP level was 311. Renal function is stable creatinine of 0.4 and again of 19. Serum bicarb is 37, temp is 72 chronic hypercapnic respiratory failure. White cell count is not elevated. 05/31/2021, the patient is being seen for a follow-up. The patient is less short of breath compared to yesterday. She is diuresing well and she is currently on Lasix 40 mg IV every 12 hours. She is also on DuoNeb nebulized treatments around the clock. No significant cough sputum production chest tightness or wheezing. The fluid balance over the past 24 hours is -2.9 L. The blood work shows a BUN of 18 with a creatinine of 0.5. Electrolytes are showing a component of metabolic alkalosis with a bicarb of 38. The white cell, 6.2 with a hemoglobin of 11.7. No other new complaints otherwise for now. No nausea. No vomiting. No abdominal pain. Her pulse ox is 97% on 5 L of oxygen by nasal cannula. On 06/01/2021 patient seen in follow-up. She is sitting up in chair, breathing comfortably she is on 3 L of oxygen pulse ox is 94%, afebrile, hemodynamically stable, she does get short of breath with exertion. She's been getting to the bathroom to void. She is awake and alert, oriented 3, remains on diuretics in the form of Lasix, 40 mg twice daily, net fluid balance is -1.9 L over the last 24 hours. However patient still has quite significant edema involving abdominal wall and lower extremities. Abdominal ultrasound showed no free fluid in the abdomen On 06/05/2001 patient seen in follow-up on selective care unit, she sat up in a recliner, she states her breathing is improving, and overall generalized edema is improving, she remains on diuretics, and she is in -5.4 L net fluid balance over the last 24 hours. She is currently on 2 L of oxygen pulse ox is 94%, set no fever or chills, no complaints of chest discomfort. No recent chest x-ray. Today's labs have been reviewed, showing sodium of 139, potassium is 4.4, chlori de is 98, CO2 is 35, B1 of 23, creatinine 0.61. No nausea or vomiting, no abdominal pain, patient is tolerating ambulation in the room. She does have home oxygen at home, she has a CPAP machine which needs repairs. She received it from [facility] and we will ask discharge planning to contact [facility] to service the machine. Objective - Vital Signs Vital signs: Vital Signs Temp 98.4 F 06/05/21 11:33 Pulse 68 06/05/21 11:33 Resp 18 06/05/21 11:33 BP 119/69 06/05/21 11:33 Pulse Ox 94 L 06/05/21 11:33 Intake & Output 06/04/21 06/05/21 06/05/21 18:59 06:59 18:59 Intake Total 120 180 Output Total 5000 600 2100 Balance -5173 -171 -9698 Weight 156.3 kg 156.3 kg Intake: Oral 120 180 Output: Urine 5000 600 2100 Other: Voiding Method Toilet Toilet Toilet # Voids 1 - Exam GENERAL EXAM: Alert, very pleasant, 51-year-old white female, on 2 L of oxygen with pulse ox of 94% comfortable in no apparent distress. HEAD: Normocephalic/atraumatic. EYES: Normal reaction of pupils, equal size. Conjunctiva pink, sclera white. NOSE: Clear with pink turbinates. THROAT: No erythema or exudates. NECK: No masses, no JVD, no thyroid enlargement, no adenopathy. CHEST: No chest wall deformity. Symmetrical expansion. LUNGS: Equal air entry with breath sounds, mild wheezes CVS: Regular rate and rhythm, normal S1 and S2, no gallops, no murmurs, no rubs ABDOMEN: Soft, nontender. No hepatosplenomegaly, normal bowel sounds, no guarding or rigidity. EXTREMITIES: No clubbing, extensive of abdominal wall edema, and edema involving bilateral lower extremities no cyanosis, 2+ pulses and upper and lower extremities. MUSCULOSKELETAL: Muscle strength and tone normal. SPINE: No scoliosis or deformity SKIN: No rashes CENTRAL NERVOUS SYSTEM: Alert and oriented -3. No focal deficits, tone is normal in all 4 extremities. PSYCHIATRIC: Alert and oriented -3. Appropriate affect. Intact judgment and insight. - Labs CBC & Chem 7: 06/03/21 10:25 06/05/21 05:00 Labs: Abnormal Lab Results - Last 24 Hours (Table) 06/05/21 Range/Units 05:00 Carbon Dioxide 35 H (22-30) mmol/L BUN 23 H (7-17) mg/dL Glucose 134 H (74-99) mg/dL Assessment and Plan Plan: Assessment: 1 acute COPD exacerbation with secondary shortness of breath. Patient is an ex- smoker and she quit smoking 3 years back. She is currently on Advair and pro- air rescue inhaler on an as-needed basis. Her worsening shortness of breath is related to COPD exacerbation along with an obvious component of fluid overload as the patient is having increased abdominal wall edema and lower extremity edema. CAT scan of the abdomen is showing anasarca. CTA of the chest shows no evidence of any pulmonary embolism.. The patient generalized anasarca and dependence by the edema. 2 morbid obesity 3 obstructive sleep apnea, AHI 15, supposed utilizes CPAP pressure of 13 cm of water and will not utilizing CPAP therapy on outpatient basis 4 chronic secondary pulmonary hypertension, awaiting a reevaluation of the PA pressures. LV function is normal. ProBNP level was nonelevated. 5 hypertension 6 history of reflux sympathetic dystrophy diagnosed in 2016 7 abnormal MRI of the brain with several lesions, nondiagnostic for MS based on previous evaluation 8 chronic peripheral neuropathy and back pain 9 complex migraines 10 debility secondary to above-mentioned comorbidities Plan: Patient is maintaining negative fluid balance Fluid volume status has improved Patient has home O2 at home She has a CPAP machine at home, does need repair is We asked discharge planning to have [facility] to service the machine Stable for discharge home from pulmonary perspective with outpatient follow-up with Dr. Benito in 7-10 days I performed a history & physical examination of the patient and discussed their management with my nurse practitioner, Marilee Monte. I reviewed the nurse practitioner's note and agree with the documented findings and plan of care. Lung sounds are positive for diminished breath sounds throughout the lung [place]. The findings and the impression was discussed with the patient. I attest to the documentation by the nurse practitioner. Time with Patient: Less than 30
== END 2021-06-05 11:52 | disposition home or self-care (01) | DRG 291 ==
LOC: EC 12:38 → 3SCARD 16:12
PROVIDERS: ADMIT Family Medicine; ATTEND Family Medicine
DX: I11.0 Hypertensive heart disease with heart failure (principal); J96.21 Acute and chronic respiratory failure with hypoxia; J96.22 Acute and chronic respiratory failure with hypercapnia; E87.3 Alkalosis; G90.50 Complex regional pain syndrome I, unspecified; J44.1 Chronic obstructive pulmonary disease with (acute) exacerbation; R18.8 Other ascites; Z68.44 Body mass index [BMI] 60.0-69.9, adult; I50.810 Right heart failure, unspecified; E03.9 Hypothyroidism, unspecified; E66.01 Morbid (severe) obesity due to excess calories; E78.5 Hyperlipidemia, unspecified; F32.9 Major depressive disorder, single episode, unspecified; F40.240 Claustrophobia; G25.81 Restless legs syndrome; G43.109 Migraine with aura, not intractable, without status migrainosus; G47.33 Obstructive sleep apnea (adult) (pediatric); G62.9 Polyneuropathy, unspecified; I07.1 Rheumatic tricuspid insufficiency; I27.29 Other secondary pulmonary hypertension; K57.30 Diverticulosis of large intestine without perforation or abscess without bleeding; M19.90 Unspecified osteoarthritis, unspecified site; Z79.82 Long term (current) use of aspirin; Z79.890 Hormone replacement therapy; Z79.899 Other long term (current) drug therapy; Z83.3 Family history of diabetes mellitus; Z86.73 Personal history of transient ischemic attack (TIA), and cerebral infarction without residual deficits; Z99.81 Dependence on supplemental oxygen; Z87.891 Personal history of nicotine dependence
CPT/HCPCS: 36415; 71046; 71275; 74177; 76705; 80048; 80053; 81003; 83540; 83550; 83605; 83735; 83880; 84484; 85025; 85379; 85610; 85730; 93005; 93306; 94640; 94760; 99285

== ENCOUNTER → 2021-09-27 | Outpatient (CLI) | payer OTHER ==
--- NOTE | 2021-09-27 16:11 | US ---
EXAMINATION TYPE: US thyroid st tissue head/neck DATE OF EXAM: 09/27/2021 COMPARISON: 02/11/2020 CLINICAL HISTORY: 51-year-old female E03.8 Other specified hypothyroidism. TECHNIQUE: Multiple sonographic images of the thyroid gland are obtained. FINDINGS: GLAND SIZE: Right Lobe: 4.8x1.9x2.5 cm Overall Parenchyma: heterogenous Left Lobe: 4.4x2.2x2.3 cm Overall Parenchyma: heterogeneous Isthmus Thickness: 0.5 cm NODULES RIGHT: # of nodules measured on right: 0 LEFT: # of nodules measured on left: 0 ISTHMUS: # of nodules measured in the isthmus: 0 Bilateral neck scanned, no evidence of lymphadenopathy. IMPRESSION: Redemonstrated heterogeneous thyroid gland without discrete nodule.
== END | disposition home or self-care (01) ==
LOC: RADUSWWP 14:12
PROVIDERS: ATTEND Internal Medicine Endocrinology, Diabetes & Metabolism
DX: E03.8 Other specified hypothyroidism (principal)
CPT/HCPCS: 76536; 84443; 84445

== ENCOUNTER 2021-10-15 23:58 | Emergency (ER) | payer OTHER ==
[2021-10-16] MEDS ORDERED: ALBUTEROL NEBULIZED 2.5 MG/3 ML INHALATION STA (00:40)
--- NOTE | 2021-10-16 00:44 | ED ---
URI HPI - General Chief Complaint: Upper Respiratory Infection Stated Complaint: URI, exposure Time Seen by Provider: 10/16/21 00:23 Source: patient Mode of arrival: wheelchair Limitations: no limitations - History of Present Illness MD Complaint: cough, rhinorrhea, nasal congestion, sinus pain Onset/Timin -: week(s) Severity: moderate Quality: dull Consistency: constant Improves With: nothing Worsens With: nothing Context: sick contacts Associated Symptoms: fever, myalgias, rhinorrhea, nasal congestion, sore throat, cough Treatments Prior to Arrival: none - Related Data Home Medications Medication Instructions Recorded Confirmed Butalb/APAP/Caff 50-325-40Mg 1 tab PO Q8HR PRN 05/22/17 05/29/21 [Fioricet 50-325-40] DULoxetine HCL [Cymbalta] 60 mg PO HS 05/22/17 05/29/21 Topiramate [Topamax] 100 mg PO BID 05/22/17 05/29/21 Pregabalin [Lyrica] 150 mg PO TID 01/12/18 05/29/21 Aspirin EC [Ecotrin Low Dose] 81 mg PO DAILY 06/06/18 05/29/21 Loratadine [Claritin] 10 mg PO DAILY 06/06/18 05/29/21 HYDROcodone/APAP 10-325MG [[place] 1 tab PO TID PRN 08/18/19 05/29/21 10-325] ARIPiprazole [Abilify] 5 mg PO HS 04/27/20 05/29/21 Atorvastatin [Lipitor] 20 mg PO HS 04/27/20 05/29/21 Metoprolol Tartrate [Lopressor] 12.5 mg PO BID 04/27/20 05/29/21 Venlafaxine HCl ER [Effexor XR] 37.5 mg PO DAILY 04/27/20 05/29/21 Zolpidem [Ambien] 10 mg PO HS 04/27/20 05/29/21 Ferrous Sulfate [Iron (65 MG 325 mg PO BID 04/21/21 05/29/21 Elemental)] Fluticasone/Salmeterol [Advair 1 puff INHALATION RT-BID 04/21/21 05/29/21 500-50 Diskus] Levothyroxine Sodium [Synthroid] 50 mcg PO DAILY 04/21/21 05/29/21 Potassium Chloride [Potassium 10 meq PO DAILY 04/21/21 05/29/21 Chloride ER] rOPINIRole HCL [Requip] 1 mg PO HS 04/21/21 05/29/21 tiZANidine [Zanaflex] 4 mg PO BID PRN 04/21/21 05/29/21 Albuterol Sulfate [Albuterol 2 puff PO RT-Q4H PRN 05/29/21 05/29/21 Sulfate Hfa] Verapamil HCl [Verapamil ER] 180 mg PO DAILY 05/29/21 05/29/21 Previous Rx's Medication Instructions Recorded Furosemide [Lasix] 40 mg PO TID #90 tablet 06/05/21 Dexamethasone [Decadron] 6 mg PO BID #14 tablet 10/16/21 Allergies Allergy/AdvReac Type Severity Reaction Status Date / Time morphine Allergy Itching/hiv Verified 10/16/21 00:13 es/sob peach Allergy Rash/Hives Verified 10/16/21 00:13 pear Allergy Rash/Hives Verified 10/16/21 00:13 Sulfa (Sulfonamide Allergy RAPID Verified 10/16/21 00:13 Antibiotics) HEART RATE AND HIVES Review of Systems ROS Statement: Those systems with pertinent positive or pertinent negative responses have been documented in the HPI. ROS Other: All systems not noted in ROS Statement are negative. Constitutional: Reports: fever. Denies: chills ENT: Reports: congestion Respiratory: Reports: cough, dyspnea, wheezes. Denies: hemoptysis Cardiovascular: Denies: chest pain, palpitations Gastrointestinal: Denies: abdominal pain, vomiting, diarrhea Genitourinary: Denies: dysuria, hematuria Musculoskeletal: Reports: myalgia. Denies: back pain Skin: Denies: rash Neurological: Reports: headache Past Medical History Past Medical History: Asthma, COPD, CVA/TIA, Hyperlipidemia, Hypertension, Osteoarthritis (OA), Pneumonia, Sleep Apnea/CPAP/BIPAP, Thyroid Disorder Additional Past Medical History / Comment(s): RSD dx 2012 lesions on brain,"memory issues" possible MS no definitive dx as of yet, peripheral neuropathy-diogenes feet/legs arms, migraines, murmur, occular hypertension, probably stroke-no residual effects, "top part of heart beats slower that the bottom", no cpap used, uses oxygen at night and PRN, anemia, this surgery was rescheduled from Dec. due to cold sx but resolved now History of Any Multi-Drug Resistant Organisms: None Reported Past Surgical History: Appendectomy, Section, Cholecystectomy, Heart Catheterization, Orthopedic Surgery Additional Past Surgical History / Comment(s): diogenes carpal tunnel, left cubital tunnel, d&c, spinal puncture, knee surgery Past Anesthesia/Blood Transfusion Reactions: Motion Sickness Additional Past Anesthesia/Blood Transfusion Reaction / Comment(s): claustroph obia. "has had blood in past-no reaction" Past Psychological History: Anxiety, Depression Smoking Status: Current every day smoker Past Alcohol Use History: None Reported Past Drug Use History: None Reported - Past Family History Father Family Medical History: Cancer Brother(s) Family Medical History: Diabetes Mellitus General Exam Limitations: no limitations General appearance: alert, in no apparent distress Head exam: Present: atraumatic, normocephalic Eye exam: Present: normal appearance. Absent: scleral icterus, conjunctival injection Neck exam: Present: normal inspection Respiratory exam: Present: wheezes. Absent: respiratory distress, rales, rhonchi, stridor Cardiovascular Exam: Present: regular rate, normal rhythm, normal heart sounds. Absent: systolic murmur, diastolic murmur, rubs, gallop GI/Abdominal exam: Present: soft. Absent: distended, tenderness, guarding, rebound, rigid Extremities exam: Present: normal inspection, normal capillary refill. Absent: pedal edema, calf tenderness Back exam: Present: normal inspection. Absent: CVA tenderness (R), CVA tenderness (L) Neurological exam: Present: alert Skin exam: Present: warm, dry, intact, normal color. Absent: rash Course Vital Signs 10/16/21 10/16/21 10/16/21 00:13 00:46 01:11 Temperature 98.6 F Pulse Rate 89 74 Respiratory 16 24 Rate Blood Pressure 101/66 O2 Sat by Pulse 84 L Oximetry 10/16/21 10/16/21 01:21 03:48 Temperature 97.5 F L Pulse Rate 71 68 Respiratory 20 Rate Blood Pressure 101/63 O2 Sat by Pulse 95 Oximetry Medical Decision Making - Medical Decision Making Patient's 51-year-old woman presenting with cough, shortness of breath, found to have coronavirus infection. I did recommend admission, but the patient is refusing to stay. Explain that there is clearly risk involved with the low oxygen saturation numbers. Patient states that she will return if she feels any worse. - Lab Data Lab Results 10/16/21 Range/Units 00:52 Coronavirus (PCR) Not Detected (Not Detectd) Disposition Clinical Impression: COPD (chronic obstructive pulmonary disease) Disposition: Left Against Medical Advice Condition: Undetermined Instructions (If sedation given, give patient instructions): COPD (Chronic Obstructive Pulmonary Disease) (ED) Prescriptions: Dexamethasone [Decadron] 6 mg PO BID #14 tablet Is patient prescribed a controlled substance at d/c from ED?: No Referrals: Erickson Li DO [Primary Care Provider] - 1-2 days
--- NOTE | 2021-10-16 01:16 | XR ---
EXAMINATION TYPE: XR chest 2V DATE OF EXAM: 10/16/2021 COMPARISON: 05/29/2021 HISTORY: Cough TECHNIQUE: 2 views FINDINGS: There is no heart failure nor confluent pneumonic infiltrate. Costophrenic angles are clear . There are no hilar masses. Pulmonary vascularity is normal. Bony thorax is intact. IMPRESSION: No active cardiopulmonary disease. No change.
[2021-10-16] MEDS ORDERED: SODIUM CHLORIDE 0.9% 50 ML IVPB ONE (01:45)
[2021-10-16] MEDS ORDERED: BAMLANIVIMAB (EUA) 700 MG, ETESEVIMAB (EUA) 1,400 MG in SODIUM CHLORIDE 0.9% 50 ML IVPB ONE (01:45)
[2021-10-16 03:50] VITALS: BP 101/63; PULSE 68; RESP 20; TEMP 97.5
== END 2021-10-16 03:50 | disposition left against medical advice (07) ==
LOC: EC 23:58
DX: J44.9 Chronic obstructive pulmonary disease, unspecified (principal); I10 Essential (primary) hypertension; G43.909 Migraine, unspecified, not intractable, without status migrainosus; M19.90 Unspecified osteoarthritis, unspecified site; E78.5 Hyperlipidemia, unspecified; E07.9 Disorder of thyroid, unspecified; F17.200 Nicotine dependence, unspecified, uncomplicated; Z86.73 Personal history of transient ischemic attack (TIA), and cerebral infarction without residual deficits; Z20.822 Contact with and (suspected) exposure to COVID-19; Z88.2 Allergy status to sulfonamides; Z88.5 Allergy status to narcotic agent; Z91.018 Allergy to other foods; Z79.82 Long term (current) use of aspirin; Z79.899 Other long term (current) drug therapy; Z79.890 Hormone replacement therapy; Z79.51 Long term (current) use of inhaled steroids
CPT/HCPCS: 94640; 87635; 71046; 99283; 96365; J3490

== ENCOUNTER 2021-12-04 21:38 | Inpatient (IN) | payer OTHER ==
[2021-12-05] MEDS ORDERED: ALBUTEROL NEBULIZED 2.5 MG/3 ML INHALATION STA (00:28)
[2021-12-05] MEDS ORDERED: IPRATROPIUM 0.5 MG/2.5 ML NEBU INHALATION STA (00:28)
[2021-12-05] MEDS ORDERED: methylPREDNISolone SOD SUCCI 125 MG/2 ML VIAL IV STA (00:28)
[2021-12-05] MEDS ORDERED: ACETAMINOPHEN TAB 500 MG TAB PO STA ×2 (00:29→00:31)
--- NOTE | 2021-12-05 00:33 | ED ---
General Adult HPI - General Chief complaint: Upper Respiratory Infection Stated complaint: MAMIE,Cough Time Seen by Provider: 12/05/21 00:18 Source: family, RN notes reviewed Mode of arrival: wheelchair Limitations: no limitations - History of Present Illness Initial comments: This is a pleasant 51-year-old female with history of COPD, hypertension. Patient presents to emergency department today complaining of shortness of breath, productive cough, chest tightness, and difficulty breathing. Patient states she's been over about 3 days. Her states [employer] for couple weeks. Apparently he had COVID-19 back in late September. The patient actually received an effusion a monoclonal antibody despite not testing positive for COVID-19. Patient had a COVID-19 test done in triage which was negative. Patient has been vaccinated against COVID-19, influenza, and pneumococcus. no changes in vision or hearing, no sore throat or difficulty with speech, no neck pain, no chest pain , no abdominal pain, no nausea or vomiting, no changes in urination or bowel movements, no numbness or tingling, no extremity pain, no skin rashes or lesions. Patient is complaining of a headache and body aches - Related Data Home Medications Medication Instructions Recorded Confirmed Butalb/APAP/Caff 50-325-40Mg 1 tab PO Q8HR PRN 05/22/17 05/29/21 [Fioricet 50-325-40] DULoxetine HCL [Cymbalta] 60 mg PO HS 05/22/17 05/29/21 Topiramate [Topamax] 100 mg PO BID 05/22/17 05/29/21 Pregabalin [Lyrica] 150 mg PO TID 01/12/18 05/29/21 Aspirin EC [Ecotrin Low Dose] 81 mg PO DAILY 06/06/18 05/29/21 Loratadine [Claritin] 10 mg PO DAILY 06/06/18 05/29/21 HYDROcodone/APAP 10-325MG [[place] 1 tab PO TID PRN 08/18/19 05/29/21 10-325] ARIPiprazole [Abilify] 5 mg PO HS 04/27/20 05/29/21 Atorvastatin [Lipitor] 20 mg PO HS 04/27/20 05/29/21 Metoprolol Tartrate [Lopressor] 12.5 mg PO BID 04/27/20 05/29/21 Venlafaxine HCl ER [Effexor XR] 37.5 mg PO DAILY 04/27/20 05/29/21 Zolpidem [Ambien] 10 mg PO HS 04/27/20 05/29/21 Ferrous Sulfate [Iron (65 MG 325 mg PO BID 04/21/21 05/29/21 Elemental)] Fluticasone/Salmeterol [Advair 1 puff INHALATION RT-BID 04/21/21 05/29/21 500-50 Diskus] Levothyroxine Sodium [Synthroid] 50 mcg PO DAILY 04/21/21 05/29/21 Potassium Chloride [Potassium 10 meq PO DAILY 04/21/21 05/29/21 Chloride ER] rOPINIRole HCL [Requip] 1 mg PO HS 04/21/21 05/29/21 tiZANidine [Zanaflex] 4 mg PO BID PRN 04/21/21 05/29/21 Albuterol Sulfate [Albuterol 2 puff PO RT-Q4H PRN 05/29/21 05/29/21 Sulfate Hfa] Verapamil HCl [Verapamil ER] 180 mg PO DAILY 05/29/21 05/29/21 Previous Rx's Medication Instructions Recorded Furosemide [Lasix] 40 mg PO TID #90 tablet 06/05/21 Dexamethasone [Decadron] 6 mg PO BID #14 tablet 10/16/21 Allergies Allergy/AdvReac Type Severity Reaction Status Date / Time morphine Allergy Itching/hiv Verified 12/04/21 22:00 es/sob peach Allergy Rash/Hives Verified 12/04/21 22:00 pear Allergy Rash/Hives Verified 12/04/21 22:00 Sulfa (Sulfonamide Allergy RAPID Verified 12/04/21 22:00 Antibiotics) HEART RATE AND HIVES Review of Systems ROS Statement: Those systems with pertinent positive or pertinent negative responses have been documented in the HPI. ROS Other: All systems not noted in ROS Statement are negative. Past Medical History Past Medical History: Asthma, COPD, CVA/TIA, Hyperlipidemia, Hypertension, Osteoarthritis (OA), Pneumonia, Sleep Apnea/CPAP/BIPAP, Thyroid Disorder Additional Past Medical History / Comment(s): RSD dx 2013 lesions on brain, "memory issues" possible MS no definitive dx as of yet, peripheral neuropathy- diogenes feet/legs arms, migraines, murmur, occular hypertension, probably stroke-no residual effects, "top part of heart beats slower that the bottom", no cpap used, uses oxygen at night and PRN, anemia, this surgery was rescheduled from Oct. due to cold sx but resolved now History of Any Multi-Drug Resistant Organisms: None Reported Past Surgical History: Appendectomy, Section, Cholecystectomy, Heart Catheterization, Orthopedic Surgery Additional Past Surgical History / Comment(s): diogenes carpal tunnel, left cubital tunnel, d&c, spinal puncture, knee surgery Past Anesthesia/Blood Transfusion Reactions: Motion Sickness Additional Past Anesthesia/Blood Transfusion Reaction / Comment(s): claustrophobia. "has had blood in past-no reaction" Past Psychological History: Anxiety, Depression Smoking Status: Current every day smoker Past Alcohol Use History: None Reported Past Drug Use History: None Reported - Past Family History Father Family Medical History: Cancer Brother(s) Family Medical History: Diabetes Mellitus General Exam - General Exam Comments Initial Comments: Obese 51-year-old female in mild distress secondary to wheezing and respiratory symptoms. Patient appears to be L but not toxic. Appears to be adequately hy drated. Limitations: no limitations General appearance: alert, in distress, obese Head exam: Present: atraumatic, normocephalic, normal inspection Eye exam: Present: normal appearance, PERRL, EOMI. Absent: scleral icterus, conjunctival injection, periorbital swelling ENT exam: Present: normal exam, normal oropharynx, mucous membranes moist Neck exam: Present: normal inspection. Absent: tenderness, meningismus, lymphadenopathy Respiratory exam: Present: wheezes. Absent: normal lung sounds bilaterally, respiratory distress, rales, rhonchi, stridor Cardiovascular Exam: Present: normal rhythm, tachycardia, normal heart sounds. Absent: regular rate, systolic murmur, diastolic murmur, rubs, gallop, clicks GI/Abdominal exam: Present: soft, normal bowel sounds. Absent: distended, tenderness, guarding, rebound, rigid Extremities exam: Present: normal inspection, full ROM, normal capillary refill. Absent: tenderness, pedal edema, joint swelling, calf tenderness Back exam: Present: normal inspection Neurological exam: Present: alert, oriented X3, CN II-XII intact Psychiatric exam: Present: normal affect, normal mood Skin exam: Present: warm, dry, intact, normal color. Absent: rash Course Vital Signs 12/04/21 12/05/21 12/05/21 22:01 01:40 02:48 Temperature 99.8 F H Pulse Rate 103 H 97 Respiratory 20 26 H 26 H Rate Blood Pressure 131/81 160/91 O2 Sat by Pulse 96 91 L Oximetry 12/05/21 12/05/21 12/05/21 03:11 03:33 04:23 Temperature Pulse Rate 96 101 H 103 H Respiratory 24 Rate Blood Pressure 138/78 O2 Sat by Pulse Oximetry - Reevaluation(s) Reevaluation #1: 12/05/21 02:19 Patient reevaluated and still complaining of some shortness of breath. Reevaluation #2: 12/05/21 03:15 Patient reevaluated and still has some wheezing. Currently waiting resulting of the d-dimer. Patient's chest x-ray shows evidence of left sided pneumonia, patient started on ceftriaxone and azithromycin. Medical Decision Making - Medical Decision Making Differential diagnosis includes influenza, other viral respiratory infection, possible bacterial pneumonia, possible false negative COVID-19 testing. I think this is unlikely but still possibly cardiac disease. We'll add on a troponin and an EKG. Viral infection with secondary COPD exacerbation likely. Solu- Medrol, albuterol/Atrovent ordered. Computed tomography scan shows no evidence of pulmonary embolism but does show multifocal pneumonia. Patient had episode of hypoxemia even on 3 L of O2. Head bump her up to 5 L/m. Case discussed with Dr. Li in detail. The case was discussed in detail with ED attending physician. Presentation, findings, treatment plan discussed in detail. - Lab Data Result diagrams: 12/05/21 00:28 12/05/21 00:28 Lab Results 12/04/21 12/05/21 12/05/21 Range/Units 22:05 00:28 00:28 WBC 9.9 (3.8-10.6) k/uL RBC 6.30 H (3.80-5.40) m/uL Hgb 15.0 (11.4-16.0) gm/dL Hct 50.6 H (34.0-46.0) % MCV 80.4 (80.0-100.0) fL MCH 23.8 L (25.0-35.0) pg MCHC 29.6 L (31.0-37.0) g/dL RDW 19.0 H (11.5-15.5) % Plt Count 229 (150-450) k/uL MPV 11.4 Neutrophils % 75 % Lymphocytes % 16 % Monocytes % 7 % Eosinophils % 0 % Basophils % 1 % Neutrophils # 7.4 (1.3-7.7) k/uL Lymphocytes # 1.6 (1.0-4.8) k/uL Monocytes # 0.7 (0-1.0) k/uL Eosinophils # 0.0 (0-0.7) k/uL Basophils # 0.1 (0-0.2) k/uL Manual Slide Review Performed Large Platelets Present Polychromasia Present Hypochromasia Marked Poikilocytosis Slight Anisocytosis Slight Microcytosis Slight D-Dimer (<0.60) mg/L FEU Sodium 134 L (137-145) mmol/L Potassium 4.7 (3.5-5.1) mmol/L Chloride 93 L (98-107) mmol/L Carbon Dioxide 36 H (22-30) mmol/L Anion Gap 5 mmol/L BUN 11 (7-17) mg/dL Creatinine 0.37 L (0.52-1.04) mg/dL Est GFR (CKD-EPI)AfAm >90 (>60 ml/min/1.73 sqM) Est GFR (CKD-EPI)NonAf >90 (>60 ml/min/1.73 sqM) Glucose 100 H (74-99) mg/dL Plasma Lactic Acid Judd (0.7-2.0) mmol/L Calcium 10.0 (8.4-10.2) mg/dL Magnesium 1.8 (1.6-2.3) mg/dL Total Bilirubin 0.7 (0.2-1.3) mg/dL AST 29 (14-36) U/L ALT 13 (4-34) U/L Alkaline Phosphatase 114 (38-126) U/L Troponin I (0.000-0.034) ng/mL NT-Pro-B Natriuret Pep pg/mL Total Protein 6.8 (6.3-8.2) g/dL Albumin 3.5 (3.5-5.0) g/dL Urine HCG, Qual (Not Detectd) Coronavirus (PCR) Not Detected (Not Detectd) Influenza Type A RNA (Not Detectd) Influenza Type B (PCR) (Not Detectd) 12/05/21 12/05/21 12/05/21 Range/Units 00:28 00:28 00:28 WBC (3.8-10.6) k/uL RBC (3.80-5.40) m/uL Hgb (11.4-16.0) gm/dL Hct (34.0-46.0) % MCV (80.0-100.0) fL MCH (25.0-35.0) pg MCHC (31.0-37.0) g/dL RDW (11.5-15.5) % Plt Count (150-450) k/uL MPV Neutrophils % % Lymphocytes % % Monocytes % % Eosinophils % % Basophils % % Neutrophils # (1.3-7.7) k/uL Lymphocytes # (1.0-4.8) k/uL Monocytes # (0-1.0) k/uL Eosinophils # (0-0.7) k/uL Basophils # (0-0.2) k/uL Manual Slide Review Large Platelets Polychromasia Hypochromasia Poikilocytosis Anisocytosis Microcytosis D-Dimer (<0.60) mg/L FEU Sodium (137-145) mmol/L Potassium (3.5-5.1) mmol/L Chloride (98-107) mmol/L Carbon Dioxide (22-30) mmol/L Anion Gap mmol/L BUN (7-17) mg/dL Creatinine (0.52-1.04) mg/dL Est GFR (CKD-EPI)AfAm (>60 ml/min/1.73 sqM) Est GFR (CKD-EPI)NonAf (>60 ml/min/1.73 sqM) Glucose (74-99) mg/dL Plasma Lactic Acid Judd 0.9 (0.7-2.0) mmol/L Calcium (8.4-10.2) mg/dL Magnesium (1.6-2.3) mg/dL Total Bilirubin (0.2-1.3) mg/dL AST (14-36) U/L ALT (4-34) U/L Alkaline Phosphatase (38-126) U/L Troponin I <0.012 (0.000-0.034) ng/mL NT-Pro-B Natriuret Pep 193 pg/mL Total Protein (6.3-8.2) g/dL Albumin (3.5-5.0) g/dL Urine HCG, Qual (Not Detectd) Coronavirus (PCR) (Not Detectd) Influenza Type A RNA (Not Detectd) Influenza Type B (PCR) (Not Detectd) 12/05/21 12/05/21 12/05/21 Range/Units 00:28 00:29 02:28 WBC (3.8-10.6) k/uL RBC (3.80-5.40) m/uL Hgb (11.4-16.0) gm/dL Hct (34.0-46.0) % MCV (80.0-100.0) fL MCH (25.0-35.0) pg MCHC (31.0-37.0) g/dL RDW (11.5-15.5) % Plt Count (150-450) k/uL MPV Neutrophils % % Lymphocytes % % Monocytes % % Eosinophils % % Basophils % % Neutrophils # (1.3-7.7) k/uL Lymphocytes # (1.0-4.8) k/uL Monocytes # (0-1.0) k/uL Eosinophils # (0-0.7) k/uL Basophils # (0-0.2) k/uL Manual Slide Review Large Platelets Polychromasia Hypochromasia Poikilocytosis Anisocytosis Microcytosis D-Dimer 0.81 H (<0.60) mg/L FEU Sodium (137-145) mmol/L Potassium (3.5-5.1) mmol/L Chloride (98-107) mmol/L Carbon Dioxide (22-30) mmol/L Anion Gap mmol/L BUN (7-17) mg/dL Creatinine (0.52-1.04) mg/dL Est GFR (CKD-EPI)AfAm (>60 ml/min/1.73 sqM) Est GFR (CKD-EPI)NonAf (>60 ml/min/1.73 sqM) Glucose (74-99) mg/dL Plasma Lactic Acid Judd (0.7-2.0) mmol/L Calcium (8.4-10.2) mg/dL Magnesium (1.6-2.3) mg/dL Total Bilirubin (0.2-1.3) mg/dL AST (14-36) U/L ALT (4-34) U/L Alkaline Phosphatase (38-126) U/L Troponin I (0.000-0.034) ng/mL NT-Pro-B Natriuret Pep pg/mL Total Protein (6.3-8.2) g/dL Albumin (3.5-5.0) g/dL Urine HCG, Qual Not Detected (Not Detectd) Coronavirus (PCR) (Not Detectd) Influenza Type A RNA Not Detected (Not Detectd) Influenza Type B (PCR) Not Detected (Not Detectd) Disposition Clinical Impression: Community acquired pneumonia, COPD exacerbation Disposition: ADMITTED IP TO THIS [facility] Referrals: Erickson Li DO [Primary Care Provider] - 1-2 days Decision to Admit Reason: Admit from EC Decision Time: 04:51
--- NOTE | 2021-12-05 01:49 | XR ---
EXAMINATION TYPE: XR chest 2V DATE OF EXAM: 12/05/2021 COMPARISON: 10/16/2021 HISTORY: Difficulty breathing TECHNIQUE: 2 views FINDINGS: There is some patchy airspace infiltrate in the left mid lung field. Right lung is clear. T here is no heart failure. There is no pleural effusion. There are no hilar masses. Heart size is fair ly normal. IMPRESSION: There is some patchy airspace pneumonia left midlung field which appears new compared to the old exam.
[2021-12-05 02:27] LABS: ALT 13 U/L (4-34); African American GFR (CKD) >90 (>60 ml/min/1.73 sqM); Albumin 3.5 g/dL (3.5-5.0); Anion Gap 5 mmol/L; Blood Urea Nitrogen 11 mg/dL (7-17); Carbon Dioxide 36 mmol/L (22-30); Chloride 93 mmol/L (98-107); Glucose 100 mg/dL (74-99); Non-African American GFR(CKD) >90 (>60 ml/min/1.73 sqM); Sodium 134 mmol/L (137-145); Total Bilirubin 0.7 mg/dL (0.2-1.3); Total Protein 6.8 g/dL (6.3-8.2)
[2021-12-05 02:30] LABS: AST 29 U/L (14-36); Alkaline Phosphatase 114 U/L (38-126); Magnesium 1.8 mg/dL (1.6-2.3); Potassium 4.7 mmol/L (3.5-5.1)
[2021-12-05] MEDS ORDERED: AZITHROMYCIN 500 MG in SODIUM CHLORIDE 0.9% 250 ML IVPB STA (02:48)
[2021-12-05] MEDS ORDERED: ONDANSETRON 4 MG/2 ML VIAL IVP STA (02:49)
[2021-12-05] MEDS ORDERED: HYDROmorphone 1 MG/ML 1 ML SYRINGE IVP STA (02:49)
[2021-12-05 02:53] LABS: Anisocytosis Slight; Basophils # (A) 0.1 k/uL (0-0.2); Basophils % (A) 1 %; Eosinophils % (A) 0 %; HCT 50.6 % (34.0-46.0); Hypochromasia Marked; Lymphocytes # (A) 1.6 k/uL (1.0-4.8); Lymphocytes % (A) 16 %; MCH 23.8 pg (25.0-35.0); MCHC 29.6 g/dL (31.0-37.0); MCV 80.4 fL (80.0-100.0); Mean Platelet Volume 11.4; Microcytosis Slight; Monocytes # (A) 0.7 k/uL (0-1.0); Monocytes % (A) 7 %; Neutrophils # (A) 7.4 k/uL (1.3-7.7); Neutrophils % (A) 75 %; Platelet Count 229 k/uL (150-450); Poikilocytosis Slight; WBC 9.9 k/uL (3.8-10.6)
[2021-12-05 04:23] LABS: Large Platelets Present
[2021-12-05 04:24] LABS: Polychromasia Present
[2021-12-05] MEDS ORDERED: IPRATROPIUM-ALBUTEROL 3 ML NEB INHALATION STA (04:31)
--- NOTE | 2021-12-05 04:37 | CT ---
EXAMINATION TYPE: CT angio chest DATE OF EXAM: 12/05/2021 COMPARISON: 05/29/2021 HISTORY: Dyspnea, cough CT DLP: 952.1 mGycm Automated exposure control for dose reduction was used. CONTRAST: Performed with IV Contrast, patient injected with 72ml mL of Isovue 370. There are Three-D postprocessed images. There is patchy interstitial and airspace infiltrates in both lungs and more extensive in the left up per lobe. There is no pleural effusion. Heart appears enlarged. There is no pericardial effusion. There is no mediastinal adenopathy. There are multiple bilateral bronchial lymph nodes up to 1 cm. Th ere is normal contrast opacification of the pulmonary arteries. There are no filling defects. Thoraci c aorta is intact. There is no aneurysm or dissection. The ascending aorta measures 3.9 cm. The thora cic spine is intact. There is no compression fracture. IMPRESSION: No evidence of pulmonary embolism. Bilateral multifocal pneumonia and there is more concentrated in the left upper lobe and is mostly ne w compared to old exam. There is clearing of right pleural effusion compared to old exam.
[2021-12-05] MEDS ORDERED: IPRATROPIUM-ALBUTEROL 3 ML NEB INHALATION PRN ×2 (04:52→09:51)
[2021-12-05] MEDS ORDERED: ALBUTEROL HFA INHALER INHALATION PRN (05:04)
[2021-12-05 06:26] LABS: Glucose,Whole Blood 177 mg/dL (75-99)
[2021-12-05] MEDS ORDERED: ALBUTEROL HFA INHALER INHALATION SCH (08:00)
[2021-12-05] MEDS ORDERED: FLUTICASONE 110 MCG INHALER INHALATION SCH (08:00)
[2021-12-05] MEDS ORDERED: ALBUTEROL NEBULIZED 2.5 MG/3 ML INHALATION SCH (08:00)
[2021-12-05] MEDS: TIOTROPIUM 2.5 MCG INHALER INHALATION SCH (08:29)
[2021-12-05] MEDS: methylPREDNISolone SOD SUCCI 125 MG/2 ML VIAL IV SCH ×3 (09:29→21:08)
[2021-12-05] MEDS ORDERED: MAGNESIUM SULFATE-D5W PMX 1 GM in DEXTROSE/WATER 1 100ML.BAG IVPB ONE (09:47)
[2021-12-05] MEDS ORDERED: ACETAMINOPHEN IV (For NPO) 1,000 MG in EMPTY BAG 1 BAG IVPB STA (09:47)
[2021-12-05] MEDS ORDERED: tiZANidine 4 MG TAB PO PRN (09:48)
[2021-12-05] MEDS ORDERED: IBUPROFEN 800 MG TAB PO PRN (09:48)
[2021-12-05] MEDS: LORATADINE 10 MG TAB PO SCH (10:19)
[2021-12-05] MEDS: PANTOPRAZOLE 40 MG/10 ML VIAL IVP SCH (10:19)
[2021-12-05] MEDS: FUROSEMIDE 40 MG TAB PO SCH (10:19)
[2021-12-05] MEDS: ASPIRIN 81 MG PO SCH (10:19)
[2021-12-05] MEDS: PREGABALIN 75 MG CAP PO SCH ×3 (10:19→21:08)
[2021-12-05] MEDS: NON FORMULARY DRUG (Phentermine Hcl [Adipex-P] 37.5 MG Tablet) PO SCH (10:42)
[2021-12-05] MEDS: BUTALB/APAP/CAFF 50-325-40MG TAB PO PRN ×2 (10:50→10:56)
--- NOTE | 2021-12-05 10:56 | P.CNPUL ---
History of Present Illness Consult date: 12/05/21 Reason for consult: dyspnea, COPD, hypoxemia, pneumonia Chief complaint: Dyspnea, Cough, History of present illness: A 51-year-old female patient who is known to us for her history of COPD with chronic hypoxic respiratory failure, obstructive sleep apnea, previous episodes of pneumonia. And patient follows with Dr. Benito in the pulmonary clinic for the same. Her other medical history includes hypertension, hyperlipidemia, osteoarthritis, morbid obesity, chronic back pain and chronic peripheral neuropathy, complex migraines, and medical debility related to the above- mentioned comorbidities, patient presented to the emergency department on 12/04/2021 for evaluation of shortness of breath, productive cough, chest tightness and difficulty breathing, patient states her symptoms have been ongoing for the last 3 or 4 days. Patient's tested negative for COVID-19, she had prior exposure to family with COVID 19 in September, did receive monoclonal antibodies. Non-vaccinated against COVID 19 or Influenza, chest x-ray on admission showed some patchy airspace pneumonia in the left midlung field which appears to be new compared to the old exam, her admission blood work showed normal white count of 9.9, hemoglobin of 15, platelet count of 229, d-dimer was 0.81, sodium is 134, potassium is 4.7, chloride is 93, CO2 is 86, BUN of 11, creatinine 0.37, plasma lactic acid was 0.9, LFTs were within normal limits t roponin was less than 0.012, proBNP was 193, urine test was negative, influenza A and B were negative, and COVID-19 PCR was also negative. CT angiogram of the chest has been completed showing bilateral multifocal pneumonia which was more concentrated in the left upper lobe and this was new compared to her old exam, and there was clearing of the right pleural effusion compared to her old exam, there was no evidence of pulmonary embolism, in the emergency department she just had a low-grade fever with a temp of 99.8F, she is currently requiring 5 L of supplemental oxygen her pulse ox is 91%, blood pressure is stable at 149/82, she is resting comfortably on a gurney, she is awaiting a bed on medical surgical floor. She was started on azithromycin and Rocephin, IV Solu-Medrol 60 mg every 6 hours, and nebulized bronchodilators. Review of Systems All systems: negative Constitutional: Denies chills, Denies fever Eyes: denies blurred vision, denies pain Ears, nose, mouth and throat: Denies headache, Denies sore throat Cardiovascular: Denies chest pain, Denies shortness of breath Respiratory: Reports cough with sputum, Reports dyspnea, Reports home oxygen, Reports respiratory infections, Denies cough Gastrointestinal: Denies abdominal pain, Denies diarrhea, Denies nausea, Denies vomiting Genitourinary: Denies dysuria, Denies hematuria Musculoskeletal: Denies myalgias Integumentary: Denies pruritus, Denies rash Neurological: Denies numbness, Denies weakness Psychiatric: Denies anxiety, Denies depression Endocrine: Denies fatigue, Denies weight change Past Medical History Past Medical History: Asthma, Heart Failure, COPD, CVA/TIA, Hyperlipidemia, Hypertension, Osteoarthritis (OA), Pneumonia, Sleep Apnea/CPAP/BIPAP, Thyroid Disorder Additional Past Medical History / Comment(s): RSD dx 2012 lesions on brain,"memory issues" possible MS/testing was inconclusive, peripheral neuropathy-diogenes feet/legs arms, migraines, chronic back pain, RLS, murmur, occular hypertension, possible stroke-no residual effects, "top part of heart beats slower that the bottom", no cpap used, uses oxygen ATC, pulmonary HTN, anemia History of Any Multi-Drug Resistant Organisms: None Reported Past Surgical History: Appendectomy, Section, Cholecystectomy, Heart Catheterization, Orthopedic Surgery Additional Past Surgical History / Comment(s): diogenes carpal tunnel, left cubital tunnel, d&c, spinal puncture, R knee arthroscopyic surgery, EGD Past Anesthesia/Blood Transfusion Reactions: Motion Sickness Additional Past Anesthesia/Blood Transfusion Reaction / Comment(s): claustrophobia. "has had blood in past-no reaction" Past Psychological History: Anxiety, Depression Additional Psychological History / Comment(s): Pt has claustrophobia. Pt resides with her spouse. She states she is fairly independent. She uses oxgen ATC. She has a nebulizer, cane and walker. Smoking Status: Current every day smoker Past Alcohol Use History: None Reported Additional Past Alcohol Use History / Comment(s): started smoking 1987, smokes 1 PPD Past Drug Use History: None Reported Additional Drug Use History / Comment(s): occ use - Past Family History Father Family Medical History: Cancer Brother(s) Family Medical History: Diabetes Mellitus Medications and Allergies Home Medications Medication Instructions Recorded Confirmed Type Butalb/APAP/Caff 50-325-40Mg 1 tab PO Q8HR PRN 05/22/17 12/05/21 History [Fioricet 50-325-40] DULoxetine HCL [Cymbalta] 60 mg PO HS 05/22/17 12/05/21 History Pregabalin [Lyrica] 150 mg PO TID 01/12/18 12/05/21 History Aspirin EC [Ecotrin Low Dose] 81 mg PO DAILY 06/06/18 12/05/21 History Loratadine [Claritin] 10 mg PO DAILY 06/06/18 12/05/21 History HYDROcodone/APAP 10-325MG [[place] 1 tab PO TID PRN 08/18/19 12/05/21 History 10-325] ARIPiprazole [Abilify] 5 mg PO HS 04/27/20 12/05/21 History Atorvastatin [Lipitor] 20 mg PO HS 04/27/20 12/05/21 History Metoprolol Tartrate [Lopressor] 12.5 mg PO BID 04/27/20 12/05/21 History Venlafaxine HCl ER [Effexor XR] 37.5 mg PO DAILY 04/27/20 12/05/21 History Zolpidem [Ambien] 10 mg PO HS 04/27/20 12/05/21 History Ferrous Sulfate [Iron (65 MG 325 mg PO BID 04/21/21 12/05/21 History Elemental)] Potassium Chloride [Potassium 10 meq PO DAILY 04/21/21 12/05/21 History Chloride ER] rOPINIRole HCL [Requip] 1 mg PO HS 04/21/21 12/05/21 History tiZANidine [Zanaflex] 4 mg PO BID PRN 04/21/21 12/05/21 History Albuterol Sulfate [Albuterol 2 puff PO RT-Q4H PRN 05/29/21 12/05/21 History Sulfate Hfa] Fluticasone/Umeclidin/Vilanter 1 puff INHALATION RT-DAILY 12/05/21 12/05/21 History [Trelegy Ellipta 100-62.5-25] Furosemide [Lasix] 40 mg PO DAILY 12/05/21 12/05/21 History Ibuprofen [Motrin] 800 mg PO Q8H PRN 12/05/21 12/05/21 History Phentermine HCl [Adipex-P] 37.5 mg PO DAILY 12/05/21 12/05/21 History Rizatriptan Benzoate [Rizatriptan] 10 mg PO DAILY PRN 12/05/21 12/05/21 History metOLazone [Zaroxolyn] 5 mg PO DAILY 12/05/21 12/05/21 History Allergies Allergy/AdvReac Type Severity Reaction Status Date / Time morphine Allergy Itching/hiv Verified 12/05/21 07:45 es/sob peach Allergy Rash/Hives Verified 12/05/21 07:45 pear Allergy Rash/Hives Verified 12/05/21 07:45 Sulfa (Sulfonamide Allergy RAPID Verified 12/05/21 07:45 Antibiotics) HEART RATE AND HIVES Physical Exam Vitals: Vital Signs Temp Pulse Pulse Resp BP BP Pulse Ox 12/05/21 08:04 98.2 F 97 18 149/82 91 L 12/05/21 05:09 104 H 12/05/21 04:58 105 H 12/05/21 04:23 103 H 24 138/78 12/05/21 03:33 101 H 12/05/21 03:11 96 12/05/21 02:48 97 26 H 160/91 91 L 12/05/21 01:40 26 H 12/04/21 22:01 99.8 F H 103 H 20 131/81 96 Intake and Output 12/04/21 12/05/21 12/05/21 22:59 06:59 14:59 Other: Weight 144.242 kg GENERAL EXAM: Alert, very pleasant, 51-year-old morbidly obese white female, on 5 L of oxygen with pulse ox of 91% comfortable in no apparent distress. HEAD: Normocephalic/atraumatic. EYES: Normal reaction of pupils, equal size. Conjunctiva pink, sclera white. NOSE: Clear with pink turbinates. THROAT: No erythema or exudates. NECK: No masses, no JVD, no thyroid enlargement, no adenopathy. CHEST: No chest wall deformity. Symmetrical expansion. LUNGS: Equal air entry with breath sounds, mild wheezes, congestive cough CVS: Regular rate and rhythm, normal S1 and S2, no gallops, no murmurs, no rubs ABDOMEN: Soft, nontender. No hepatosplenomegaly, normal bowel sounds, no guarding or rigidity. EXTREMITIES: No clubbing, extensive of abdominal wall edema, and edema involving bilateral lower extremities no cyanosis, 2+ pulses and upper and lower extremities. MUSCULOSKELETAL: Muscle strength and tone normal. SPINE: No scoliosis or deformity SKIN: No rashes CENTRAL NERVOUS SYSTEM: Alert and oriented -3. No focal deficits, tone is normal in all 4 extremities. PSYCHIATRIC: Alert and oriented -3. Appropriate affect. Intact judgment and insight. Results - Laboratory Findings CBC and BMP: 12/05/21 00:28 12/05/21 00: ABG WBC 9.9 k/uL (3.8-10.6) 12/05/21: RBC 6.30 m/uL (3.80-5.40) H 12/05/21 00: Hgb 15.0 gm/dL (11.4-16.0) 12/05/21: Hct 50.6 % (34.0-46.0) H 12/05/21:28 MCV 80.4 fL (80.0-100.0) 12/05/21 00: MCH 23.8 pg (25.0-35.0) L 12/05/21: MCHC 29.6 g/dL (31.0-37.0) L 12/05/21: RDW 19.0 % (11.5-15.5) H 12/05/21: Plt Count 229 k/uL (150-450) 12/05/21 00: MPV 11.4 12/05/21 00:28 Neutrophils % 75 % 12/05/21 00:28 Lymphocytes % 16 % 12/05/21 00:28 Monocytes % 7 % 12/05/21: Eosinophils % 0 % 12/05/21: Basophils % 1 % 12/05/21 00: Neutrophils # 7.4 k/uL (1.3-7.7) 12/05/21 00: Lymphocytes # 1.6 k/uL (1.0-4.8) 12/05/21 00: Monocytes # 0.7 k/uL (0-1.0) 12/05/21 00:28 Eosinophils # 0.0 k/uL (0-0.7) 12/05/21 00:28 Basophils # 0.1 k/uL (0-0.2) 12/05/21 00:28 Manual Slide Review Performed 12/05/21 00: Large Platelets Present 12/05/21 00:28 Polychromasia Present 12/05/21 00: Hypochromasia Marked 12/05/21 00: Poikilocytosis Slight 12/05/21 00: Anisocytosis Slight 12/05/21 00: Microcytosis Slight 12/05/21 00:28 D-Dimer 0.81 mg/L FEU (<0.60) H 12/05/21 02:28 Sodium 134 mmol/L (137-145) L 12/05/21 00: Potassium 4.7 mmol/L (3.5-5.1) 12/05/21 00: Chloride 93 mmol/L (98-107) L 12/05/21 00: Carbon Dioxide 36 mmol/L (22-30) H 12/05/21 00:28 Anion Gap 5 mmol/L 12/05/21 00:28 BUN 11 mg/dL (7-17) 12/05/21 00:28 Creatinine 0.37 mg/dL (0.52-1.04) L 12/05/21 00:28 Est GFR (CKD-EPI)AfAm >90 (>60 ml/min/1.73 sqM) 12/05/21 00:28 Est GFR (CKD-EPI)NonAf >90 (>60 ml/min/1.73 sqM) 12/05/21 00:28 Glucose 100 mg/dL (74-99) H 12/05/21 00:28 POC Glucose (mg/dL) 177 mg/dL (75-99) H 12/05/21 06:25 POC Glu Hand Inserter Operator ID Ricky Gonzáles 12/05/21 06:25 Plasma Lactic Acid Judd 0.9 mmol/L (0.7-2.0) 12/05/21 00:28 Calcium 10.0 mg/dL (8.4-10.2) 12/05/21 00: Magnesium 1.8 mg/dL (1.6-2.3) 12/05/21 00:28 Total Bilirubin 0.7 mg/dL (0.2-1.3) 12/05/21 00:28 AST 29 U/L (14-36) 12/05/21 00:28 ALT 13 U/L (4-34) 12/05/21 00:28 Alkaline Phosphatase 114 U/L (38-126) 12/05/21 00:28 Troponin I <0.012 ng/mL (0.000-0.034) 12/05/21 00:28 NT-Pro-B Natriuret Pep 193 pg/mL 12/05/21 00:28 Total Protein 6.8 g/dL (6.3-8.2) 12/05/21 00:28 Albumin 3.5 g/dL (3.5-5.0) 12/05/21 00:28 Urine HCG, Qual Not Detected (Not Detectd) 12/05/21 00:29 PT/INR, D-dimer D-Dimer 0.81 mg/L FEU (<0.60) H 12/05/21 02:28 Abnormal lab findings: Abnormal Labs 12/05/21 12/05/21 12/05/21 00:28 00:28 02:28 RBC 6.30 H Hct 50.6 H MCH 23.8 L MCHC 29.6 L RDW 19.0 H D-Dimer 0.81 H Sodium 134 L Chloride 93 L Carbon Dioxide 36 H Creatinine 0.37 L Glucose 100 H POC Glucose (mg/dL) 12/05/21 06:25 RBC Hct MCH MCHC RDW D-Dimer Sodium Chloride Carbon Dioxide Creatinine Glucose POC Glucose (mg/dL) 177 H - Diagnostic Findings Chest x-ray: report reviewed, image reviewed CT scan - chest: report reviewed, image reviewed Assessment and Plan Plan: Assessment: #1. Acute on chronic hypoxic respiratory failure related to community acquired pneumonia. CT angiogram of the chest showed bilateral multifocal pneumonia more concentrated in the left upper lobe, no evidence of pulmonary embolism, COVID-19 PCR was negative #2. Acute exacerbation of COPD related to the above #3. Chronic hypoxic respiratory failure related to COPD #4. Patient had a prior exposures to COVID-19, status post monoclonal antibody infusion on 10/18/2021 after being exposed to family members with cold blood area is not vaccinated against COVID-19, however tested negative for COVID-19, and influenza a and B #5. Ex-smoker #6. Sleep apnea, AHI 15, supposed to utilize CPAP pressure of 13 cm of water and will not utilizing CPAP therapy on outpatient basis #7. Morbid obesity #8. Headaches #9. Chronic back pain and chronic peripheral neuropathy #10. Previous episodes of pneumonia #11. Abnormal brain lesions, non-diagnostic for MS #12. Hypertension #13. Pulmonary hypertension related to COPD, and obstructive sleep apnea and chronic hypoxic respiratory failure Plan: Continue current antibiotic coverage Patient is on a combination of azithromycin and Rocephin Continue Trelegygy, DuoNeb Continue IV steroids Sputum sample for culture, obtain a pro-calcitonin level Blood cultures Resume home medications Monitor blood sugar We'll continue to follow I performed a history & physical examination of the patient and discussed their management with my nurse practitioner, Marilee Monte. I reviewed the nurse practitioner's note and agree with the documented findings and plan of care. Lung sounds are positive for diffuse wheezes throughout the lung [place]. The findings and the impression was discussed with the patient. I attest to the documentation by the nurse practitioner. Time with Patient: Greater than 30
[2021-12-05] MEDS: METOPROLOL TARTRATE 12.5 MG TAB PO SCH ×2 (11:22→22:39)
[2021-12-05] MEDS: VENLAFAXINE HCL ER 37.5 MG CAP PO SCH (11:23)
[2021-12-05] MEDS: metOLazone 5 MG TAB PO SCH (11:23)
[2021-12-05 11:37] LABS: Glucose,Whole Blood 157 mg/dL (75-99)
[2021-12-05] MEDS: IPRATROPIUM-ALBUTEROL 3 ML NEB INHALATION SCH ×3 (12:09→18:59)
[2021-12-05] MEDS: INSULIN ASPART (NovoLOG) 100 UNIT/ML VIAL SQ SCH ×3 (12:35→20:57)
[2021-12-05 16:37] LABS: Glucose,Whole Blood 136 mg/dL (75-99)
--- NOTE | 2021-12-05 17:10 | P.HPIM ---
History of Present Illness H&P Date: 12/05/21 Chief Complaint: Dyspnea This a 51-year-old female with history of COPD, migraines, hypertension, osteoarthritis, sleep apnea, morbid obesity, anxiety, depression, nicotine dep endence and multiple other medical issues presented to the ER with complaints of worsening shortness of breath. Reports her entire household except her had COVID-19 in September 2021. Complains of headache, migraine in nature. Reports increased nonproductive cough, congestion and wheezing. Temperature 99.8, heart rate 103, 2 With respiratory rate to 26 maintaining O2 sats of 96 on 3 L nasal cannula, on admission. Hematology unremarkable, D-dimer elevated. Chest CTA reported no evidence of PE. Chest x-ray reported some patchy airspace pneumonia in the left midlung field, appears to be new. Sodium 134, potassium 4.7, BUN 11, creatinine 0.37, lactic acid 0.9, magnesium 1.8, blood sugars controlled. [place] virus/PCR/influenza a and B not detected .denies chest pain, palpitations. EKG reported normal sinus rhythm. IV antibiotics of azithromycin and Rocephin with IV steroids initiated. Review of Systems ROS Statement: Those systems with pertinent positive or pertinent negative responses have been documented in the HPI. ROS Other: All systems not noted in ROS Statement are negative. Past Medical History Past Medical History: Asthma, COPD, CVA/TIA, Hyperlipidemia, Hypertension, Osteoarthritis (OA), Pneumonia, Sleep Apnea/CPAP/BIPAP, Thyroid Disorder Additional Past Medical History / Comment(s): RSD dx 2012 lesions on brain,"memory issues" possible MS no definitive dx as of yet, peripheral neuropathy-diogenes feet/legs arms, migraines, murmur, occular hypertension, probably stroke-no residual effects, "top part of heart beats slower that the bottom", no cpap used, uses oxygen at night and PRN, anemia, this surgery was rescheduled from Oct. due to cold sx but resolved now History of Any Multi-Drug Resistant Organisms: None Reported Past Surgical History: Appendectomy, Section, Cholecystectomy, Heart Catheterization, Orthopedic Surgery Additional Past Surgical History / Comment(s): diogenes carpal tunnel, left cubital tunnel, d&c, spinal puncture, knee surgery Past Anesthesia/Blood Transfusion Reactions: Motion Sickness Additional Past Anesthesia/Blood Transfusion Reaction / Comment(s): claustrophobia. "has had blood in past-no reaction" Past Psychological History: Anxiety, Depression Smoking Status: Current every day smoker Past Alcohol Use History: None Reported Past Drug Use History: None Reported - Past Family History Father Family Medical History: Cancer Brother(s) Family Medical History: Diabetes Mellitus Medications and Allergies Home Medications Medication Instructions Recorded Confirmed Type Butalb/APAP/Caff 50-325-40Mg 1 tab PO Q8HR PRN 05/22/17 12/05/21 History [Fioricet 50-325-40] DULoxetine HCL [Cymbalta] 60 mg PO HS 05/22/17 12/05/21 History Pregabalin [Lyrica] 150 mg PO TID 01/12/18 12/05/21 History Aspirin EC [Ecotrin Low Dose] 81 mg PO DAILY 06/06/18 12/05/21 History Loratadine [Claritin] 10 mg PO DAILY 06/06/18 12/05/21 History HYDROcodone/APAP 10-325MG [[place] 1 tab PO TID PRN 08/18/19 12/05/21 History 10-325] ARIPiprazole [Abilify] 5 mg PO HS 04/27/20 12/05/21 History Atorvastatin [Lipitor] 20 mg PO HS 04/27/20 12/05/21 History Metoprolol Tartrate [Lopressor] 12.5 mg PO BID 04/27/20 12/05/21 History Venlafaxine HCl ER [Effexor XR] 37.5 mg PO DAILY 04/27/20 12/05/21 History Zolpidem [Ambien] 10 mg PO HS 04/27/20 12/05/21 History Ferrous Sulfate [Iron (65 MG 325 mg PO BID 04/21/21 12/05/21 History Elemental)] Potassium Chloride [Potassium 10 meq PO DAILY 04/21/21 12/05/21 History Chloride ER] rOPINIRole HCL [Requip] 1 mg PO HS 04/21/21 12/05/21 History tiZANidine [Zanaflex] 4 mg PO BID PRN 04/21/21 12/05/21 History Albuterol Sulfate [Albuterol 2 puff PO RT-Q4H PRN 05/29/21 12/05/21 History Sulfate Hfa] Fluticasone/Umeclidin/Vilanter 1 puff INHALATION RT-DAILY 12/05/21 12/05/21 History [Trelegy Ellipta 100-62.5-25] Furosemide [Lasix] 40 mg PO DAILY 12/05/21 12/05/21 History Ibuprofen [Motrin] 800 mg PO Q8H PRN 12/05/21 12/05/21 History Phentermine HCl [Adipex-P] 37.5 mg PO DAILY 12/05/21 12/05/21 History Rizatriptan Benzoate [Rizatriptan] 10 mg PO DAILY PRN 12/05/21 12/05/21 History metOLazone [Zaroxolyn] 5 mg PO DAILY 12/05/21 12/05/21 History Allergies Allergy/AdvReac Type Severity Reaction Status Date / Time morphine Allergy Itching/hiv Verified 12/05/21 07:45 es/sob peach Allergy Rash/Hives Verified 12/05/21 07:45 pear Allergy Rash/Hives Verified 12/05/21 07:45 Sulfa (Sulfonamide Allergy RAPID Verified 12/05/21 07:45 Antibiotics) HEART RATE AND HIVES Physical Exam Vitals: Vital Signs Temp Pulse Pulse Resp BP BP Pulse Ox 12/05/21 08:04 98.2 F 97 18 149/82 91 L 12/05/21 05:09 104 H 12/05/21 04:58 105 H 12/05/21 04:23 103 H 24 138/78 12/05/21 03:33 101 H 12/05/21 03:11 96 12/05/21 02:48 97 26 H 160/91 91 L 12/05/21 01:40 26 H 12/04/21 22:01 99.8 F H 103 H 20 131/81 96 Intake and Output 12/04/21 12/05/21 12/05/21 22:59 06:59 14:59 Other: Weight 144.242 kg PHYSICAL EXAM: VITAL SIGNS: As above GENERAL: Sitting up in bed, no acute distress. HEENT: Conjunctivae normal. eyes normal. NECK: No JVD. No thyroid enlargement. No LNs CARDIOVASCULAR: S1, S2 regular.. No murmur RESPIRATION: Breath sounds diminished in the bases. loose congested cough with some mild expiratory wheezing. ABDOMEN: Soft, nontender,obese, nondistended ,positive Bowel sounds. LEGS: No edema. no swelling PSYCHIATRY: Alert and oriented X3, mood and affect normal. NERVOUS SYSTEM: Cranial N 2-12 grossly normal. Moves all 4 limbs.No focal deficits. Strength and sensation grossly intact.. Skin: no rash Lymphatic system. No LN neck axilla. Results CBC & Chem 7: 12/05/21 00:28 12/05/21 00:28 Labs: Abnormal Lab Results - Last 24 Hours (Table) 12/05/21 12/05/21 12/05/21 Range/Units 00:28 00:28 02:28 RBC 6.30 H (3.80-5.40) m/uL Hct 50.6 H (34.0-46.0) % MCH 23.8 L (25.0-35.0) pg MCHC 29.6 L (31.0-37.0) g/dL RDW 19.0 H (11.5-15.5) % D-Dimer 0.81 H (<0.60) mg/L FEU Sodium 134 L (137-145) mmol/L Chloride 93 L (98-107) mmol/L Carbon Dioxide 36 H (22-30) mmol/L Creatinine 0.37 L (0.52-1.04) mg/dL Glucose 100 H (74-99) mg/dL POC Glucose (mg/dL) (75-99) mg/dL 12/05/21 Range/Units 06:25 RBC (3.80-5.40) m/uL Hct (34.0-46.0) % MCH (25.0-35.0) pg MCHC (31.0-37.0) g/dL RDW (11.5-15.5) % D-Dimer (<0.60) mg/L FEU Sodium (137-145) mmol/L Chloride (98-107) mmol/L Carbon Dioxide (22-30) mmol/L Creatinine (0.52-1.04) mg/dL Glucose (74-99) mg/dL POC Glucose (mg/dL) 177 H (75-99) mg/dL Assessment and Plan Assessment: Acute community-acquired bilateral pneumonia, coronavirus not detected. Exposed to cold faded 1120, status post monoclonal antibody infusion on 1120 Acute COPD exacerbation, Acute on chronic hypoxic respiratory failure, wears 2 L nasal cannula at home Alpha-1 antitrypsin deficiency, history of Obstructive sleep apnea Osteoarthritis Hypertension Morbid obesity, BMI 56.3 Anxiety Depression Ongoing nicotine dependence Chronic peripheral neuropathy Chronic back pain Migraines, chronic Plan: Continue on current medication regime ,monitoring and symptomatic treatment. Aggressive pulmonary toileting with nebulized bronchodilators, IV steroids, nebulized bronchodilators. Pulmonary consult in place, recommendations pending. The impression and plan of care has been dictated as directed. : I performed a history and examination of this patient, discussed the same with the dictator. I agree with the dictator's note ,documented as a scribe. Any additional findings or plans will be noted.
[2021-12-05] MEDS: SYMBICORT 80-4.5 MCG INHALER INHALATION SCH (18:59)
[2021-12-05 21:06] LABS: Glucose,Whole Blood 183 mg/dL (75-99)
[2021-12-05] MEDS: FERROUS SULFATE 325 MG TAB PO SCH (21:08)
[2021-12-05] MEDS: ARIPiprazole 5 MG TAB PO SCH (21:08)
[2021-12-05] MEDS: ATORVASTATIN 20 MG TAB PO SCH (21:08)
[2021-12-05] MEDS: DULoxetine HCL 60 MG CAPSULE.DR PO SCH (21:08)
[2021-12-05] MEDS: ZOLPIDEM 10 MG TAB PO SCH (22:23)
[2021-12-05] MEDS: HYDROcodone/APAP 10-325MG 1 EACH TAB PO PRN (22:41)
[2021-12-06] MEDS: methylPREDNISolone SOD SUCCI 125 MG/2 ML VIAL IV SCH ×4 (04:02→20:50)
[2021-12-06] MEDS: BUTALB/APAP/CAFF 50-325-40MG TAB PO PRN (04:04)
[2021-12-06 07:40] LABS: Glucose,Whole Blood 147 mg/dL (75-99)
[2021-12-06 08:13] LABS: African American GFR (CKD) >90 (>60 ml/min/1.73 sqM); Anion Gap 3 mmol/L; Blood Urea Nitrogen 24 mg/dL (7-17); Calcium 10.1 mg/dL (8.4-10.2); Carbon Dioxide 39 mmol/L (22-30); Chloride 94 mmol/L (98-107); Glucose 142 mg/dL (74-99); Non-African American GFR(CKD) >90 (>60 ml/min/1.73 sqM); Potassium 5.2 mmol/L (3.5-5.1); Sodium 136 mmol/L (137-145)
--- NOTE | 2021-12-06 08:16 | XR ---
EXAMINATION TYPE: XR chest 1V portable DATE OF EXAM: 12/06/2021 CLINICAL HISTORY: Difficulty breathing progress study. TECHNIQUE: Single AP portable frontal view of the chest is obtained. COMPARISON: Chest x-ray and CTA chest from one day earlier and older studies FINDINGS: Suboptimal study due to portable technique and large body habitus. Persistent cardiomegaly with multifocal left mid to lower lung opacities. Right lung remains predominantly clear. Osseous str uctures are intact. IMPRESSION: Cardiomegaly with patchy left mid to lower lung acute infiltrates redemonstrated. No sign ificant change from one day earlier.
[2021-12-06] MEDS: IPRATROPIUM-ALBUTEROL 3 ML NEB INHALATION SCH ×4 (08:35→21:29)
[2021-12-06] MEDS: SYMBICORT 80-4.5 MCG INHALER INHALATION SCH ×2 (08:35→21:28)
[2021-12-06] MEDS: PREGABALIN 75 MG CAP PO SCH ×3 (08:39→22:06)
[2021-12-06] MEDS: LORATADINE 10 MG TAB PO SCH (08:39)
[2021-12-06] MEDS: PANTOPRAZOLE 40 MG/10 ML VIAL IVP SCH (08:39)
[2021-12-06] MEDS: FERROUS SULFATE 325 MG TAB PO SCH ×2 (08:39→20:18)
[2021-12-06] MEDS: FUROSEMIDE 40 MG TAB PO SCH (08:39)
[2021-12-06] MEDS: TIOTROPIUM 2.5 MCG INHALER INHALATION SCH (08:39)
[2021-12-06] MEDS: ASPIRIN 81 MG PO SCH (08:39)
[2021-12-06] MEDS: INSULIN ASPART (NovoLOG) 100 UNIT/ML VIAL SQ SCH ×4 (08:40→20:50)
[2021-12-06] MEDS: NON FORMULARY DRUG (Phentermine Hcl [Adipex-P] 37.5 MG Tablet) PO SCH (08:47)
[2021-12-06 08:57] LABS: Anisocytosis Slight; Basophils % (A) 0 %; Eosinophils % (A) 0 %; HCT 52.2 % (34.0-46.0); Hypochromasia Marked; Lymphocytes % (A) 12 %; MCH 23.8 pg (25.0-35.0); MCHC 28.7 g/dL (31.0-37.0); MCV 83.1 fL (80.0-100.0); Microcytosis Slight; Monocytes # (A) 0.3 k/uL (0-1.0); Monocytes % (A) 4 %; Neutrophils # (A) 6.6 k/uL (1.3-7.7); Neutrophils % (A) 82 %; Platelet Count 224 k/uL (150-450); Poikilocytosis Slight; RBC 6.28 m/uL (3.80-5.40); RDW 18.6 % (11.5-15.5); WBC 8.1 k/uL (3.8-10.6)
[2021-12-06] MEDS ORDERED: cefTRIAXone 1,000 MG VIAL (IM USE) IM SCH (09:00)
[2021-12-06] MEDS: METOPROLOL TARTRATE 12.5 MG TAB PO SCH ×2 (09:18→20:19)
[2021-12-06] MEDS: metOLazone 5 MG TAB PO SCH (09:19)
[2021-12-06] MEDS: VENLAFAXINE HCL ER 37.5 MG CAP PO SCH (09:19)
[2021-12-06] MEDS: AZITHROMYCIN 500 MG in SODIUM CHLORIDE 0.9% 250 ML IVPB SCH (10:57)
[2021-12-06 12:11] LABS: Glucose,Whole Blood 148 mg/dL (75-99)
--- NOTE | 2021-12-06 13:29 | P.PN ---
Subjective Progress Note Date: 12/06/21 A 51-year-old female patient who is known to us for her history of COPD with chronic hypoxic respiratory failure, obstructive sleep apnea, previous episodes of pneumonia. And patient follows with Dr. Benito in the pulmonary clinic for the same. Her other medical history includes hypertension, hyperlipidemia, osteoarthritis, morbid obesity, chronic back pain and chronic peripheral neuropathy, complex migraines, and medical debility related to the above- mentioned comorbidities, patient presented to the emergency department on 12/04/2021 for evaluation of shortness of breath, productive cough, chest tightness and difficulty breathing, patient states her symptoms have been ongoing for the last 3 or 4 days. Patient's tested negative for COVID-19, she had prior exposure to family with COVID 19 in September, did receive monoclonal antibodies. Non-vaccinated against COVID 19 or Influenza, chest x-ray on admission showed some patchy airspace pneumonia in the left midlung field which appears to be new compared to the old exam, her admission blood work showed normal white count of 9.9, hemoglobin of 15, platelet count of 229, d-dimer was 0.81, sodium is 134, potassium is 4.7, chloride is 93, CO2 is 86, BUN of 11, creatinine 0.37, plasma lactic acid was 0.9, LFTs were within normal limits tro ponin was less than 0.012, proBNP was 193, urine test was negative, influenza A and B were negative, and COVID-19 PCR was [address] negative[address] CT angiogram of the chest has been completed showing bilateral multifocal pneumonia which was more concentrated in the left upper lobe and this was new compared to her old exam, and there was clearing of the right pleural effusion compared to her old exam, there was no evidence of pulmonary embolism, in the emergency department she just had a low-grade fever with a temp of 99.8F, she is currently requiring 5 L of supplemental oxygen her pulse ox is 91%, blood pressure is stable at 149/82, she is resting comfortably on a gurney, she is awaiting a bed on medical surgical floor. She was started on azithromycin and Rocephin, IV Solu-Medrol 60 mg every 6 hours, and nebulized bronchodilators. The patient is seen today 12/06/2021 in follow-up on the regular medical floor. She is up at the bedside. Awake and alert in no acute distress. She is still having dyspnea with minimal exertion. Still with a loose nonproductive cough. Maintaining O2 saturations in the mid 90s on 5 L/m per nasal cannula. Afebrile. Hemodynamically stable. Follow up chest x-ray reveals evidence of cardiomegaly with patchy left mid to lower lung infiltrates redemonstrated. No significant change. Sputum culture pending. White count 8.1. Hemoglobin 15.0. Platelet count 224. Sodium 136. Potassium 5.2. Creatinine 0.52. Glucose 142. She is continued on DuoNeb inhalations, Symbicort, IV Solu-Medrol, Spiriva. Antibiotics in the form of ceftriaxone and azithromycin. Objective - Vital Signs Vital signs: Vital Signs Temp 97.9 F 12/06/21 04:48 Pulse 94 12/06/21 08:49 Resp 18 12/06/21 08:00 BP 129/80 12/06/21 04:48 Pulse Ox 96 12/06/21 04:48 Intake & Output 12/05/21 12/06/21 12/06/21 18:59 06:59 18:59 Intake Total 400 Balance 400 Weight 144.242 kg Intake: Oral 400 Other: Voiding Method Toilet # Voids 2 - Exam GENERAL EXAM: Alert, morbidly obese 51-year-old female patient on 5 L nasal cannula, fairly comfortable in no apparent distress. HEAD: Normocephalic. EYES: Normal reaction of pupils, equal size. NOSE: Clear with pink turbinates. THROAT: No erythema or exudates. NECK: No masses, no JVD. CHEST: No chest wall deformity. LUNGS: Equal air entry with crackles in the left lung base. CVS: S1 and S2 normal with no audible murmur, regular rhythm. ABDOMEN: No hepatosplenomegaly, normal bowel sounds, no guarding or rigidity. SPINE: No scoliosis or deformity SKIN: No rashes CENTRAL NERVOUS SYSTEM: No focal deficits, tone is normal in all 4 extremities. EXTREMITIES: There is no peripheral edema. No clubbing, no cyanosis. Peripheral pulses are intact. - Labs CBC & Chem 7: 12/06/21 07:15 12/06/21 07:15 Labs: Abnormal Lab Results - Last 24 Hours (Table) 12/05/21 12/05/21 12/06/21 Range/Units 16:35 20:56 07:15 RBC 6.28 H (3.80-5.40) m/uL Hct 52.2 H (34.0-46.0) % MCH 23.8 L (25.0-35.0) pg MCHC 28.7 L (31.0-37.0) g/dL RDW 18.6 H (11.5-15.5) % Sodium (137-145) mmol/L Potassium (3.5-5.1) mmol/L Chloride (98-107) mmol/L Carbon Dioxide (22-30) mmol/L BUN (7-17) mg/dL Glucose (74-99) mg/dL POC Glucose (mg/dL) 136 H 183 H (75-99) mg/dL 12/06/21 12/06/21 12/06/21 Range/Units 07:15 07:38 12:09 RBC (3.80-5.40) m/uL Hct (34.0-46.0) % MCH (25.0-35.0) pg MCHC (31.0-37.0) g/dL RDW (11.5-15.5) % Sodium 136 L (137-145) mmol/L Potassium 5.2 H (3.5-5.1) mmol/L Chloride 94 L (98-107) mmol/L Carbon Dioxide 39 H (22-30) mmol/L BUN 24 H (7-17) mg/dL Glucose 142 H (74-99) mg/dL POC Glucose (mg/dL) 147 H 148 H (75-99) mg/dL Microbiology - Last 24 Hours (Table) 12/05/21 11:01 Gram Stain - Preliminary Sputum Sputum Culture - Preliminary Assessment and Plan Assessment: 1 Acute on chronic hypoxic respiratory failure related to community acquired pneumonia. CT angiogram of the chest showed bilateral multifocal pneumonia more concentrated in the left upper lobe, no evidence of pulmonary embolism, COVID-19 PCR was negative 2 Acute exacerbation of COPD related to the above 3 Chronic hypoxic respiratory failure related to COPD 4 Patient had a prior exposures to COVID-19, status post monoclonal antibody infusion on 10/18/2021 after being exposed to family members with cold blood area is not vaccinated against COVID-19, however tested negative for COVID-19, and influenza a and B 5 Ex-smoker 6 Sleep apnea, AHI 15, supposed to utilize CPAP pressure of 13 cm of water and will not utilizing CPAP therapy on outpatient basis 7 Morbid obesity 8 Headaches 9 Chronic back pain and chronic peripheral neuropathy 10 Previous episodes of pneumonia 11 Abnormal brain lesions, non-diagnostic for MS 12 Hypertension 13 Pulmonary hypertension related to COPD, and obstructive sleep apnea and chronic hypoxic respiratory failure Plan: The patient was seen and evaluated Chest x-ray and labs reviewed On 5 L nasal cannula Continue bronchodilators Continue antibiotics Titrate the FiO2 as tolerated We will continue to follow I, the cosigning physician, performed a history & physical examination of the patient. Lungs sounds rhonchi in the right lung base. Maintaining good O2 saturations in the 90s on 5 L/m per nasal cannula. I discussed the assessment and plan of care with my nurse practitioner, Va Loving. I attest to the above note as dictated by her.
[2021-12-06 16:46] LABS: Glucose,Whole Blood 116 mg/dL (75-99)
--- NOTE | 2021-12-06 17:41 | P.PN ---
Subjective Progress Note Date: 12/06/21 This a 51-year-old female with history of COPD, migraines, hypertension, osteoarthritis, sleep apnea, morbid obesity, anxiety, depression, nicotine dependence and multiple other medical issues presented to the ER with complaints of worsening shortness of breath. Reports her entire household except her had COVID-19 in September 2021. Complains of headache, migraine in nature. Reports increased nonproductive cough, congestion and wheezing. Temperature 99.8, heart rate 103, 2 With respiratory rate to 26 maintaining O2 sats of 96 on 3 L nasal cannula, on admission. Hematology unremarkable, D-dimer elevated. Chest CTA reported no evidence of PE. Chest x-ray reported some patchy airspace pneumonia in the left midlung field, appears to be new. Sodium 134, potassium 4.7, BUN 11, creatinine 0.37, lactic acid 0.9, magnesium 1.8, blood sugars controlled. Park virus/PCR/influenza a and B not detected .denies chest pain, palpitations. EKG reported normal sinus rhythm. IV antibiotics of azithromycin and Rocephin with IV steroids initiated. 12/06/2021 continues on IV steroids, nebulized bronchodilators, Symbicort, azithromycin and ceftriaxone .maintaining O2 sats in the 90s on 5 L nasal cannul a O2. Minimal productive cough, less wheezing. Repeat chest x-ray similar. Sputum culture pending. Afebrile, T-max 99.2. Blood sugars controlled. Objective - Vital Signs Vital signs: Vital Signs Temp 98.8 F 12/06/21 13:58 Pulse 85 12/06/21 13:58 Resp 18 12/06/21 08:00 BP 146/79 12/06/21 13:58 Pulse Ox 94 L 12/06/21 13:58 Intake & Output 12/05/21 12/06/21 12/06/21 18:59 06:59 18:59 Intake Total 400 Balance 400 Weight 144.242 kg Intake: Oral 400 Other: Voiding Method Toilet # Voids 2 - Exam PHYSICAL EXAM: VITAL SIGNS: As above GENERAL: Alert and oriented 3, Sitting up in bed, no acute distress. HEENT: Conjunctivae normal. eyes normal. Oral mucosa moist NECK: Supple, No JVD. CARDIOVASCULAR: S1, S2 regular.No murmur RESPIRATION: Breath sounds diminished in the bases. loose congested cough with some mild expiratory wheezing, fine left base crackles ABDOMEN: Soft, nontender,obese, nondistended ,positive Bowel sounds. LEGS: No edema. no swelling NERVOUS SYSTEM: Cranial N 2-12 grossly normal. Moves all 4 limbs.No focal deficits. Strength and sensation grossly intact. Skin: Warm and dry, no rash - Labs CBC & Chem 7: 12/06/21 07:15 12/06/21 07:15 Labs: Abnormal Lab Results - Last 24 Hours (Table) 12/05/21 12/06/21 12/06/21 Range/Units 20:56 07:15 07:15 RBC 6.28 H (3.80-5.40) m/uL Hct 52.2 H (34.0-46.0) % MCH 23.8 L (25.0-35.0) pg MCHC 28.7 L (31.0-37.0) g/dL RDW 18.6 H (11.5-15.5) % Sodium 136 L (137-145) mmol/L Potassium 5.2 H (3.5-5.1) mmol/L Chloride 94 L (98-107) mmol/L Carbon Dioxide 39 H (22-30) mmol/L BUN 24 H (7-17) mg/dL Glucose 142 H (74-99) mg/dL POC Glucose (mg/dL) 183 H (75-99) mg/dL 12/06/21 12/06/21 12/06/21 Range/Units 07:38 12:09 16:44 RBC (3.80-5.40) m/uL Hct (34.0-46.0) % MCH (25.0-35.0) pg MCHC (31.0-37.0) g/dL RDW (11.5-15.5) % Sodium (137-145) mmol/L Potassium (3.5-5.1) mmol/L Chloride (98-107) mmol/L Carbon Dioxide (22-30) mmol/L BUN (7-17) mg/dL Glucose (74-99) mg/dL POC Glucose (mg/dL) 147 H 148 H 116 H (75-99) mg/dL Microbiology - Last 24 Hours (Table) 12/05/21 11:01 Gram Stain - Preliminary Sputum Sputum Culture - Preliminary Assessment and Plan Assessment: Acute community-acquired bilateral pneumonia, coronavirus not detected. Exposed to cold faded 112, status post monoclonal antibody infusion on 112 Acute COPD exacerbation, Acute on chronic hypoxic respiratory failure, wears 2 L nasal cannula at home Alpha-1 antitrypsin deficiency, history of Obstructive sleep apnea Osteoarthritis Hypertension Morbid obesity, BMI 56.3 Anxiety Depression Ongoing nicotine dependence Chronic peripheral neuropathy Chronic back pain Migraines, chronic Plan: Continue on current medication regime ,monitoring and symptomatic treatment. Titrate FiO2 as tolerated. Maintain aggressive pulmonary toileting with nebulized bronchodilators, IV steroids, nebulized bronchodilators. The impression and plan of care has been dictated as directed. : I performed a history and examination of this patient, discussed the same with the dictator. I agree with the dictator's note ,documented as a scribe. Any additional findings or plans will be noted.
[2021-12-06] MEDS: ATORVASTATIN 20 MG TAB PO SCH (20:18)
[2021-12-06] MEDS: DULoxetine HCL 60 MG CAPSULE.DR PO SCH (20:18)
[2021-12-06] MEDS: ARIPiprazole 5 MG TAB PO SCH (20:50)
[2021-12-06 20:59] LABS: Glucose,Whole Blood 164 mg/dL (75-99)
[2021-12-06] MEDS: ZOLPIDEM 10 MG TAB PO SCH (22:11)
[2021-12-07] MEDS: methylPREDNISolone SOD SUCCI 125 MG/2 ML VIAL IV SCH ×4 (03:21→22:06)
[2021-12-07 07:53] LABS: Glucose,Whole Blood 143 mg/dL (75-99)
[2021-12-07] MEDS: INSULIN ASPART (NovoLOG) 100 UNIT/ML VIAL SQ SCH ×4 (08:08→22:07)
[2021-12-07] MEDS: METOPROLOL TARTRATE 12.5 MG TAB PO SCH ×2 (08:25→22:06)
[2021-12-07] MEDS: VENLAFAXINE HCL ER 37.5 MG CAP PO SCH (08:26)
[2021-12-07] MEDS: metOLazone 5 MG TAB PO SCH (08:26)
[2021-12-07] MEDS: SUMAtriptan succinate 50 MG TAB PO PRN (08:26)
[2021-12-07] MEDS: PANTOPRAZOLE 40 MG TABLET PO SCH (08:26)
[2021-12-07] MEDS: PREGABALIN 75 MG CAP PO SCH ×3 (08:27→22:05)
[2021-12-07] MEDS: LORATADINE 10 MG TAB PO SCH (08:27)
[2021-12-07] MEDS: ASPIRIN 81 MG PO SCH (08:27)
[2021-12-07] MEDS: FUROSEMIDE 40 MG TAB PO SCH (08:27)
[2021-12-07] MEDS: FERROUS SULFATE 325 MG TAB PO SCH ×2 (08:27→22:05)
[2021-12-07 08:34] LABS: African American GFR (CKD) >90 (>60 ml/min/1.73 sqM); Blood Urea Nitrogen 24 mg/dL (7-17); Calcium 10.3 mg/dL (8.4-10.2); Chloride 92 mmol/L (98-107); Glucose 145 mg/dL (74-99); Non-African American GFR(CKD) >90 (>60 ml/min/1.73 sqM); Potassium 5.1 mmol/L (3.5-5.1); Sodium 138 mmol/L (137-145)
[2021-12-07 08:58] LABS: Anion Gap 7 mmol/L
[2021-12-07 09:03] LABS: Carbon Dioxide 39 mmol/L (22-30)
[2021-12-07] MEDS: SYMBICORT 80-4.5 MCG INHALER INHALATION SCH ×2 (09:33→21:21)
[2021-12-07] MEDS: IPRATROPIUM-ALBUTEROL 3 ML NEB INHALATION SCH ×4 (09:33→21:21)
[2021-12-07] MEDS: TIOTROPIUM 2.5 MCG INHALER INHALATION SCH (09:33)
[2021-12-07] MEDS: AZITHROMYCIN 500 MG in SODIUM CHLORIDE 0.9% 250 ML IVPB SCH (10:53)
[2021-12-07] MEDS: BUTALB/APAP/CAFF 50-325-40MG TAB PO PRN (10:57)
[2021-12-07] MEDS: NON FORMULARY DRUG (Phentermine Hcl [Adipex-P] 37.5 MG Tablet) PO SCH (11:00)
[2021-12-07 11:47] LABS: Glucose,Whole Blood 136 mg/dL (75-99)
[2021-12-07] MEDS: HYDROcodone/APAP 10-325MG 1 EACH TAB PO PRN (13:48)
--- NOTE | 2021-12-07 14:15 | P.PN ---
Subjective Progress Note Date: 12/07/21 A 51-year-old female patient who is known to us for her history of COPD with chronic hypoxic respiratory failure, obstructive sleep apnea, previous episodes of pneumonia. And patient follows with Dr. Benito in the pulmonary clinic for the same. Her other medical history includes hypertension, hyperlipidemia, osteoarthritis, morbid obesity, chronic back pain and chronic peripheral neuropathy, complex migraines, and medical debility related to the above- mentioned comorbidities, patient presented to the emergency department on 12/04/2021 for evaluation of shortness of breath, productive cough, chest tightness and difficulty breathing, patient states her symptoms have been ongoing for the last 3 or 4 days. Patient's tested negative for COVID-19, she had prior exposure to family with COVID 19 in September, did receive monoclonal antibodies. Non-vaccinated against COVID 19 or Influenza, chest x-ray on admission showed some patchy airspace pneumonia in the left midlung field which appears to be new compared to the old exam, her admission blood work showed normal white count of 9.9, hemoglobin of 15, platelet count of 229, d-dimer was 0.81, sodium is 134, potassium is 4.7, chloride is 93, CO2 is 86, BUN of 11, creatinine 0.37, plasma lactic acid was 0.9, LFTs were within normal limits tro ponin was less than 0.012, proBNP was 193, urine test was negative, influenza A and B were negative, and COVID-19 PCR was [address] negative[address] angiogram of the chest has been completed showing bilateral multifocal pneumonia which was more concentrated in the left upper lobe and this was new compared to her old exam, and there was clearing of the right pleural effusion compared to her old exam, there was no evidence of pulmonary embolism, in the emergency department she just had a low-grade fever with a temp of 99.8F, she is currently requiring 5 L of supplemental oxygen her pulse ox is 91%, blood pressure is stable at 149/82, she is resting comfortably on a gurney, she is awaiting a bed on medical surgical floor. She was started on azithromycin and Rocephin, IV Solu-Medrol 60 mg every 6 hours, and nebulized bronchodilators. The patient is seen today 12/06/2021 in follow-up on the regular medical floor. She is up at the bedside. Awake and alert in no acute distress. She is still having dyspnea with minimal exertion. Still with a loose nonproductive cough. Maintaining O2 saturations in the mid 90s on 5 L/m per nasal cannula. Afebrile. Hemodynamically stable. Follow up chest x-ray reveals evidence of cardiomegaly with patchy left mid to lower lung infiltrates redemonstrated. No significant change. Sputum culture pending. White count 8.1. Hemoglobin 15.0. Platelet count 224. Sodium 136. Potassium 5.2. Creatinine 0.52. Glucose 142. She is continued on DuoNeb inhalations, Symbicort, IV Solu-Medrol, Spiriva. Antibiotics in the form of ceftriaxone and azithromycin. The patient is seen today 12/07/2021 in follow-up on the regular medical floor. She is awake and alert in no acute distress. Sitting up at the bedside. She is doing better today compared to yesterday. Still not feeling quite back to her baseline. Still dyspneic with exertion. Dyspneic with conversation. She is on 5 L nasal cannula with current O2 saturation 95%. She's afebrile. Sputum culture pending. Sodium 138. Potassium 5.1. Creatinine 0.62. Glucose 145. She is continued on DuoNeb inhalations, Symbicort, IV Solu-Medrol, Spiriva. Antibiotics in the form of ceftriaxone and azithromycin. Objective - Vital Signs Vital signs: Vital Signs Temp 98.3 F 12/07/21 12:18 Pulse 88 12/07/21 12:43 Resp 18 12/07/21 12:18 BP 157/80 12/07/21 12:18 Pulse Ox 95 12/07/21 12:18 Intake & Output 12/06/21 12/07/21 12/07/21 18:59 06:59 18:59 Intake Total 360 1200 Balance 360 1200 Intake: Oral 360 1200 Other: # Voids 2 4 - Exam GENERAL EXAM: Alert, morbidly obese 51-year-old female patient on 5 L nasal cannula, sitting up at the bedside, fairly comfortable in no apparent distress. HEAD: Normocephalic. EYES: Normal reaction of pupils, equal size. NOSE: Clear with pink turbinates. THROAT: No erythema or exudates. NECK: No masses, no JVD. CHEST: No chest wall deformity. LUNGS: Equal air entry with crackles in the left lung base. CVS: S1 and S2 normal with no audible murmur, regular rhythm. ABDOMEN: No hepatosplenomegaly, normal bowel sounds, no guarding or rigidity. SPINE: No scoliosis or deformity SKIN: No rashes CENTRAL NERVOUS SYSTEM: No focal deficits, tone is normal in all 4 extremities. EXTREMITIES: There is no peripheral edema. No clubbing, no cyanosis. Peripheral pulses are intact. - Labs CBC & Chem 7: 12/06/21 07:15 12/07/21 07:50 Labs: Abnormal Lab Results - Last 24 Hours (Table) 12/06/21 12/06/21 12/07/21 Range/Units 16:44 20:48 07:50 Chloride 92 L (98-107) mmol/L Carbon Dioxide 39 H (22-30) mmol/L BUN 24 H (7-17) mg/dL Glucose 145 H (74-99) mg/dL POC Glucose (mg/dL) 116 H 164 H (75-99) mg/dL Calcium 10.3 H (8.4-10.2) mg/dL 12/07/21 12/07/21 Range/Units 07:52 11:45 Chloride (98-107) mmol/L Carbon Dioxide (22-30) mmol/L BUN (7-17) mg/dL Glucose (74-99) mg/dL POC Glucose (mg/dL) 143 H 136 H (75-99) mg/dL Calcium (8.4-10.2) mg/dL Assessment and Plan Assessment: 1 Acute on chronic hypoxic respiratory failure related to community acquired pneumonia. CT angiogram of the chest showed bilateral multifocal pneumonia more concentrated in the left upper lobe, no evidence of pulmonary embolism, COVID-19 PCR was negative. Pro-calcitonin 0.07. 2 Acute exacerbation of COPD related to the above 3 Chronic hypoxic respiratory failure related to COPD 4 Patient had a prior exposures to COVID-19, status post monoclonal antibody infusion on 10/18/2021 after being exposed to family members with cold blood area is not vaccinated against COVID-19, however tested negative for COVID-19, and influenza a and B 5 Ex-smoker 6 Sleep apnea, AHI 15, supposed to utilize CPAP pressure of 13 cm of water and will not utilizing CPAP therapy on outpatient basis 7 Morbid obesity 8 Headaches 9 Chronic back pain and chronic peripheral neuropathy 10 Previous episodes of pneumonia 11 Abnormal brain lesions, non-diagnostic for MS 12 Hypertension 13 Pulmonary hypertension related to COPD, and obstructive sleep apnea and chronic hypoxic respiratory failure Plan: The patient was seen and evaluated On 5 L nasal cannula Continue bronchodilators Continue antibiotics Titrate the FiO2 as tolerated Increase her activity as tolerated Probably home in the a.m. We will continue to follow I, the cosigning physician, performed a history & physical examination of the patient. Lungs sounds rhonchi in the left lung base. Maintaining good O2 saturations in the 90s on 5 L/m per nasal cannula. I discussed the assessment and plan of care with my nurse practitioner, Va Loving. I attest to the above note as dictated by her.
--- NOTE | 2021-12-07 15:16 | P.PN ---
Subjective Progress Note Date: 12/07/21 This a 51-year-old female with history of COPD, migraines, hypertension, osteoarthritis, sleep apnea, morbid obesity, anxiety, depression, nicotine dependence and multiple other medical issues presented to the ER with complaints of worsening shortness of breath. Reports her entire household except her had COVID-19 in September 2021. Complains of headache, migraine in nature. Reports increased nonproductive cough, congestion and wheezing. Temperature 99.8, heart rate 103, 2 With respiratory rate to 26 maintaining O2 sats of 96 on 3 L nasal cannula, on admission. Hematology unremarkable, D-dimer elevated. Chest CTA reported no evidence of PE. Chest x-ray reported some patchy airspace pneumonia in the left midlung field, appears to be new. Sodium 134, potassium 4.7, BUN 11, creatinine 0.37, lactic acid 0.9, magnesium 1.8, blood sugars controlled. Park virus/PCR/influenza a and B not detected .denies chest pain, palpitations. EKG reported normal sinus rhythm. IV antibiotics of azithromycin and Rocephin with IV steroids initiated. 12/06/2021 continues on IV steroids, nebulized bronchodilators, Symbicort, azithromycin and ceftriaxone .maintaining O2 sats in the 90s on 5 L nasal cannul a O2. Minimal productive cough, less wheezing. Repeat chest x-ray similar. Sputum culture pending. Afebrile, T-max 99.2. Blood sugars controlled. 12/07/2009 maintained on nebulized bronchodilators, IV steroids, ceftriaxone and azithromycin.Sitting up at bedside, maintaining O2 sats in the 90s on 5 L nasal cannula O2. Loose congested cough,reports minimally productive. Afebrile Objective - Vital Signs Vital signs: Vital Signs Temp 98.3 F 12/07/21 12:18 Pulse 88 12/07/21 12:43 Resp 18 12/07/21 12:18 BP 157/80 12/07/21 12:18 Pulse Ox 97 12/07/21 14:55 Intake & Output 12/06/21 12/07/21 12/07/21 18:59 06:59 18:59 Intake Total 360 1200 Balance 360 1200 Intake: Oral 360 1200 Other: # Voids 2 4 - Exam PHYSICAL EXAM: VITAL SIGNS: As above GENERAL: Alert and oriented 3, Sitting up at side of bed, no acute distress. HEENT: Conjunctivae normal. eyes normal. Oral mucosa moist NECK: Supple, No JVD. CARDIOVASCULAR: S1, S2 regular.No murmur RESPIRATION: Breath sounds diminished in the bases. loose congested cough with fine left base crackles ABDOMEN: Soft, nontender,obese, nondistended ,positive Bowel sounds. LEGS: No edema. no swelling NERVOUS SYSTEM: Cranial N 2-12 grossly normal. Moves all 4 limbs.No focal deficits. Strength and sensation grossly intact. Skin: Warm and dry, no rash - Labs CBC & Chem 7: 12/06/21 07:15 12/07/21 07:50 Labs: Abnormal Lab Results - Last 24 Hours (Table) 12/06/21 12/06/21 12/07/21 Range/Units 16:44 20:48 07:50 Chloride 92 L (98-107) mmol/L Carbon Dioxide 39 H (22-30) mmol/L BUN 24 H (7-17) mg/dL Glucose 145 H (74-99) mg/dL POC Glucose (mg/dL) 116 H 164 H (75-99) mg/dL Calcium 10.3 H (8.4-10.2) mg/dL 12/07/21 12/07/21 Range/Units 07:52 11:45 Chloride (98-107) mmol/L Carbon Dioxide (22-30) mmol/L BUN (7-17) mg/dL Glucose (74-99) mg/dL POC Glucose (mg/dL) 143 H 136 H (75-99) mg/dL Calcium (8.4-10.2) mg/dL Assessment and Plan Assessment: Acute community-acquired bilateral pneumonia, coronavirus not detected. Exposed to cold faded 1120, status post monoclonal antibody infusion on 1120 Acute COPD exacerbation, Acute on chronic hypoxic respiratory failure, wears 2 L nasal cannula at home Alpha-1 antitrypsin deficiency, history of Obstructive sleep apnea Osteoarthritis Hypertension Morbid obesity, BMI 56.3 Anxiety Depression Ongoing nicotine dependence Chronic peripheral neuropathy Chronic back pain Migraines, chronic Plan: Continue on current medication regime ,monitoring and symptomatic treatment. Titrate FiO2 as tolerated. Continue aggressive pulmonary toileting with nebulized bronchodilators, IV steroids, nebulized bronchodilators. Disc harge planning in progress possibly tomorrow, pending final DC recommendations and clearance per pulmonary. The impression and plan of care has been dictated as directed. : I performed a history and examination of this patient, discussed the same with the dictator. I agree with the dictator's note ,documented as a scribe. Any additional findings or plans will be noted.
[2021-12-07 17:04] LABS: Glucose,Whole Blood 160 mg/dL (75-99)
[2021-12-07 20:16] LABS: Glucose,Whole Blood 168 mg/dL (75-99)
[2021-12-07] MEDS: ATORVASTATIN 20 MG TAB PO SCH (22:05)
[2021-12-07] MEDS: ZOLPIDEM 10 MG TAB PO SCH (22:05)
[2021-12-07] MEDS: DULoxetine HCL 60 MG CAPSULE.DR PO SCH (22:05)
[2021-12-07] MEDS: ARIPiprazole 5 MG TAB PO SCH (22:06)
[2021-12-08] MEDS: methylPREDNISolone SOD SUCCI 125 MG/2 ML VIAL IV SCH ×2 (04:09→08:41)
[2021-12-08] MEDS: SUMAtriptan succinate 50 MG TAB PO PRN (04:37)
[2021-12-08 07:57] LABS: Glucose,Whole Blood 158 mg/dL (75-99)
[2021-12-08] MEDS: IPRATROPIUM-ALBUTEROL 3 ML NEB INHALATION SCH (08:35)
[2021-12-08] MEDS: TIOTROPIUM 2.5 MCG INHALER INHALATION SCH (08:35)
[2021-12-08] MEDS: SYMBICORT 80-4.5 MCG INHALER INHALATION SCH (08:35)
[2021-12-08] MEDS: INSULIN ASPART (NovoLOG) 100 UNIT/ML VIAL SQ SCH (08:37)
[2021-12-08] MEDS: FERROUS SULFATE 325 MG TAB PO SCH (08:42)
[2021-12-08] MEDS: ASPIRIN 81 MG PO SCH (08:42)
[2021-12-08] MEDS: FUROSEMIDE 40 MG TAB PO SCH (08:42)
[2021-12-08] MEDS: PANTOPRAZOLE 40 MG TABLET PO SCH (08:42)
[2021-12-08] MEDS: LORATADINE 10 MG TAB PO SCH (08:42)
[2021-12-08] MEDS: METOPROLOL TARTRATE 12.5 MG TAB PO SCH (08:43)
[2021-12-08] MEDS: metOLazone 5 MG TAB PO SCH (08:43)
[2021-12-08] MEDS: PREGABALIN 75 MG CAP PO SCH (08:43)
[2021-12-08] MEDS: VENLAFAXINE HCL ER 37.5 MG CAP PO SCH (08:44)
[2021-12-08] MEDS: NON FORMULARY DRUG (Phentermine Hcl [Adipex-P] 37.5 MG Tablet) PO SCH (11:17)
[2021-12-08] MEDS: AZITHROMYCIN 500 MG in SODIUM CHLORIDE 0.9% 250 ML IVPB SCH (11:18)
[2021-12-08 11:53] VITALS: BP 176/102; PULSE 81; RESP 17; TEMP 97.9
--- NOTE | 2021-12-08 12:52 | P.PN ---
Subjective Progress Note Date: 12/08/21 A 51-year-old female patient who is known to us for her history of COPD with chronic hypoxic respiratory failure, obstructive sleep apnea, previous episodes of pneumonia. And patient follows with Dr. Benito in the pulmonary clinic for the same. Her other medical history includes hypertension, hyperlipidemia, osteoarthritis, morbid obesity, chronic back pain and chronic peripheral neuropathy, complex migraines, and medical debility related to the above- mentioned comorbidities, patient presented to the emergency department on 12/04/2021 for evaluation of shortness of breath, productive cough, chest tightness and difficulty breathing, patient states her symptoms have been ongoing for the last 3 or 4 days. Patient's tested negative for COVID-19, she had prior exposure to family with COVID 19 in September, did receive monoclonal antibodies. Non-vaccinated against COVID 19 or Influenza, chest x-ray on admission showed some patchy airspace pneumonia in the left midlung field which appears to be new compared to the old exam, her admission blood work showed normal white count of 9.9, hemoglobin of 15, platelet count of 229, d-dimer was 0.81, sodium is 134, potassium is 4.7, chloride is 93, CO2 is 86, BUN of 11, creatinine 0.37, plasma lactic acid was 0.9, LFTs were within normal limits tro ponin was less than 0.012, proBNP was 193, urine test was negative, influenza A and B were negative, and COVID-19 PCR was also negative. CT angiogram of the chest has been completed showing bilateral multifocal pneumonia which was more concentrated in the left upper lobe and this was new compared to her old exam, and there was clearing of the right pleural effusion compared to her old exam, there was no evidence of pulmonary embolism, in the emergency department she just had a low-grade fever with a temp of 99.8F, she is currently requiring 5 L of supplemental oxygen her pulse ox is 91%, blood pressure is stable at 149/82, she is resting comfortably on a gurney, she is awaiting a bed on medical surgical floor. She was started on azithromycin and Rocephin, IV Solu-Medrol 60 mg every 6 hours, and nebulized bronchodilators. The patient is seen today 12/06/2021 in follow-up on the regular medical floor. She is up at the bedside. Awake and alert in no acute distress. She is still having dyspnea with minimal exertion. Still with a loose nonproductive cough. Maintaining O2 saturations in the mid 90s on 5 L/m per nasal cannula. Afebrile. Hemodynamically stable. Follow up chest x-ray reveals evidence of cardiomegaly with patchy left mid to lower lung infiltrates redemonstrated. No significant change. Sputum culture pending. White count 8.1. Hemoglobin 15.0. Platelet count 224. Sodium 136. Potassium 5.2. Creatinine 0.52. Glucose 142. She is continued on DuoNeb inhalations, Symbicort, IV Solu-Medrol, Spiriva. Antibiotics in the form of ceftriaxone and azithromycin. The patient is seen today 12/07/2021 in follow-up on the regular medical floor. She is awake and alert in no acute distress. Sitting up at the bedside. She is doing better today compared to yesterday. Still not feeling quite back to her baseline. Still dyspneic with exertion. Dyspneic with conversation. She is on 5 L nasal cannula with current O2 saturation 95%. She's afebrile. Sputum culture pending. Sodium 138. Potassium 5.1. Creatinine 0.62. Glucose 145. She is continued on DuoNeb inhalations, Symbicort, IV Solu-Medrol, Spiriva. Antibiotics in the form of ceftriaxone and azithromycin. Patient is seen today 12/08/2021 in follow-up on the regular medical floor. She is sitting up at the bedside. Awake and alert in no acute distress. Feeling back to her baseline. No worsening shortness of breath, cough or congestion. She is continued on oxygen at 4 L/m per nasal cannula to maintain O2 saturations in the low 90s. She's afebrile. Sputum cultures now positive for Streptococcus pneumoniae. Blood sugar 158. He is currently on ceftriaxone and azithromycin along with DuoNeb inhalations, Symbicort, Spiriva, IV Solu-Medrol. Objective - Vital Signs Vital signs: Vital Signs Temp 97.9 F 12/08/21 08:00 Pulse 86 12/08/21 08:49 Resp 17 12/08/21 08:00 BP 176/102 12/08/21 08:00 Pulse Ox 92 L 12/08/21 08:00 Intake & Output 12/07/21 12/08/2122 18:59 06:59 18:59 Intake Total 500 Balance 500 Intake: Oral 500 Other: # Voids 4 4 # Bowel Movements 1 - Exam GENERAL EXAM: Alert, morbidly obese 51-year-old female patient on 4 L nasal cannula, sitting up at the bedside, fairly comfortable in no apparent distress. HEAD: Normocephalic. EYES: Normal reaction of pupils, equal size. NOSE: Clear with pink turbinates. THROAT: No erythema or exudates. NECK: No masses, no JVD. CHEST: No chest wall deformity. LUNGS: Equal air entry with crackles in the left lung base. CVS: S1 and S2 normal with no audible murmur, regular rhythm. ABDOMEN: No hepatosplenomegaly, normal bowel sounds, no guarding or rigidity. SPINE: No scoliosis or deformity SKIN: No rashes CENTRAL NERVOUS SYSTEM: No focal deficits, tone is normal in all 4 extremities. EXTREMITIES: There is no peripheral edema. No clubbing, no cyanosis. Peripheral pulses are intact. - Labs CBC & Chem 7: 12/06/21 07:15 12/07/21 07:50 Labs: Abnormal Lab Results - Last 24 Hours (Table) 12/07/21 12/07/21 12/08/21 Range/Units 17:02 20:15 07:56 POC Glucose (mg/dL) 160 H 168 H 158 H (75-99) mg/dL Microbiology - Last 24 Hours (Table) 12/05/21 11:01 Gram Stain - Preliminary Sputum Sputum Culture - Preliminary Streptococcus pneumoniae 12/07/21 12:32 Gram Stain - Preliminary Sputum Sputum Culture - Preliminary Assessment and Plan Assessment: 1 Acute on chronic hypoxic respiratory failure related to community acquired pneumonia. CT angiogram of the chest showed bilateral multifocal pneumonia more concentrated in the left upper lobe, no evidence of pulmonary embolism, COVID-19 PCR was negative. Pro-calcitonin 0.07. Sputum culture now positive for Streptococcus pneumoniae 2 Acute exacerbation of COPD related to the above 3 Chronic hypoxic respiratory failure related to COPD 4 Patient had a prior exposures to COVID-19, status post monoclonal antibody infusion on 10/18/2021 after being exposed to family members with cold blood area is not vaccinated against COVID-19, however tested negative for COVID-19, and influenza a and B 5 Ex-smoker 6 Sleep apnea, AHI 15, supposed to utilize CPAP pressure of 13 cm of water and will not utilizing CPAP therapy on outpatient basis 7 Morbid obesity 8 Headaches 9 Chronic back pain and chronic peripheral neuropathy 10 Previous episodes of pneumonia 11 Abnormal brain lesions, non-diagnostic for MS 12 Hypertension 13 Pulmonary hypertension related to COPD, and obstructive sleep apnea and ch ronic hypoxic respiratory failure Plan: The patient was seen and evaluated Sputum positive for Streptococcus pneumoniae Cleared for discharge from the pulmonary standpoint Complete a course of antibiotics Complete a prednisone taper Continue her home pulmonary medications Follow-up in the office in 1-2 weeks I, the cosigning physician, performed a history & physical examination of the patient. Lungs sounds rhonchi in the left lung base. Maintaining good O2 saturations in the 90s on 4 L/m per nasal cannula. I discussed the assessment and plan of care with my nurse practitioner, Va Loving. I attest to the above note as dictated by her.
--- NOTE | 2021-12-08 13:11 | P.DS ---
Providers Date of admission: 12/05/21 04:57 Expected date of discharge: 12/08/21 Attending physician: Erickson Li Consults: 12/05/21 04:52 Consult Physician Routine Consulting Provider: Ivis Benito Consult Reason/Comments: Community acquired pneumonia, COPD Do you want consulting provider notified?: Yes, Notify in am Primary care physician: Erickson Li Hospital Course: Final Diagnoses: Acute community-acquired bilateral pneumonia, coronavirus not detected. Exposed to cold faded 1120, status post monoclonal antibody infusion on 1120 Acute COPD exacerbation, Acute on chronic hypoxic respiratory failure, wears 2 L nasal cannula at home Hypertension, uncontrolled, Norvasc added Alpha-1 antitrypsin deficiency, history of Obstructive sleep apnea Osteoarthritis Morbid obesity, BMI 56.3 Anxiety Depression Ongoing nicotine dependence Chronic peripheral neuropathy Chronic back pain Migraines, chronic Hospital course:This a 51-year-old female with history of COPD, migraines, hypertension, osteoarthritis, sleep apnea, morbid obesity, anxiety, depression, nicotine dependence and multiple other medical issues presented to the ER with complaints of worsening shortness of breath. Reports her entire household except her had COVID-19 in September 2021. Complains of headache, migraine in nature. Reports increased nonproductive cough, congestion and wheezing. Temperature 99.8, heart rate 103, 2 With respiratory rate to 26 maintaining O2 sats of 96 on 3 L nasal cannula, on admission. Hematology unremarkable, D-dimer elevated. Chest CTA reported no evidence of PE. Chest x-ray reported some patchy airspace pneumonia in the left midlung field, appears to be new. Sodium 134, potassium 4.7, BUN 11, creatinine 0.37, lactic acid 0.9, magnesium 1.8, bl ood sugars controlled. [place] virus/PCR/influenza a and B not detected .denies chest pain, palpitations. EKG reported normal sinus rhythm. IV antibiotics of azithromycin and Rocephin with IV steroids initiated. 12/06/2021 continues on IV steroids, nebulized bronchodilators, Symbicort, azithromycin and ceftriaxone .maintaining O2 sats in the 90s on 5 L nasal cannula O2. Minimal productive cough, less wheezing. Repeat chest x-ray similar. Sputum culture pending. Afebrile, T-max 99.2. Blood sugars controlled. 12/07/2009 maintained on nebulized bronchodilators, IV steroids, ceftriaxone and azithromycin.Sitting up at bedside, maintaining O2 sats in the 90s on 5 L nasal cannula O2. Loose congested cough,reports minimally productive. Afebrile. Significant clinical improvement. Patient will be discharged home today in a stable condition with guarded prognosis pending final DC recommendations and clearance per pulmonary.Norvasc added to med regimen for uncontrolled hypertension. The impression and plan of care has been dictated as directed. : I performed a history and examination of this patient, discussed the same with the dictator. I agree with the dictator's note ,documented as a scribe. Any additional findings or plans will be noted. Patient Condition at Discharge: Stable Plan - Discharge Summary Discharge Rx Participant: No New Discharge Prescriptions: New Cefuroxime Axetil [Ceftin] 500 mg PO BID 5 Days #10 tab Pantoprazole [Protonix] 40 mg PO AC-BRKFST #30 tab amLODIPine [Norvasc] 5 mg PO DAILY #30 tab predniSONE 10 mg PO DIRECTED #30 tab Continue DULoxetine HCL [Cymbalta] 60 mg PO HS Butalb/APAP/Caff 50-325-40Mg [Fioricet 50-325-40] 1 tab PO Q8HR PRN PRN Reason: Migraine Headache Pregabalin [Lyrica] 150 mg PO TID Loratadine [Claritin] 10 mg PO DAILY Aspirin EC [Ecotrin Low Dose] 81 mg PO DAILY HYDROcodone/APAP 10-325MG [[place] 10-325] 1 tab PO TID PRN PRN Reason: Pain Venlafaxine HCl ER [Effexor XR] 37.5 mg PO DAILY Metoprolol Tartrate [Lopressor] 12.5 mg PO BID Atorvastatin [Lipitor] 20 mg PO HS ARIPiprazole [Abilify] 5 mg PO HS Zolpidem [Ambien] 10 mg PO HS Potassium Chloride [Potassium Chloride ER] 10 meq PO DAILY Fluticasone/Umeclidin/Vilanter [Trelegy Ellipta 100-62.5-25] 1 puff INHALATION RT-DAILY Furosemide [Lasix] 40 mg PO DAILY Ibuprofen [Motrin] 800 mg PO Q8H PRN PRN Reason: Pain metOLazone [Zaroxolyn] 5 mg PO DAILY Phentermine HCl [Adipex-P] 37.5 mg PO DAILY Ferrous Sulfate [Iron (65 MG Elemental)] 325 mg PO BID rOPINIRole HCL [Requip] 1 mg PO HS tiZANidine [Zanaflex] 4 mg PO BID PRN PRN Reason: Muscle Spasm Albuterol Sulfate [Albuterol Sulfate Hfa] 2 puff PO RT-Q4H PRN PRN Reason: Shortness Of Breath Rizatriptan Benzoate [Rizatriptan] 10 mg PO DAILY PRN PRN Reason: Migraine Headache Discharge Medication List Butalb/APAP/Caff 50-325-40Mg [Fioricet 50-325-40] 1 tab PO Q8HR PRN 05/22/17 [History] DULoxetine HCL [Cymbalta] 60 mg PO HS 05/22/17 [History] Pregabalin [Lyrica] 150 mg PO TID 01/12/18 [History] Aspirin EC [Ecotrin Low Dose] 81 mg PO DAILY 06/06/18 [History] Loratadine [Claritin] 10 mg PO DAILY 06/06/18 [History] HYDROcodone/APAP 10-325MG [[place] 10-325] 1 tab PO TID PRN 08/18/19 [History] ARIPiprazole [Abilify] 5 mg PO HS 04/27/20 [History] Atorvastatin [Lipitor] 20 mg PO HS 04/27/20 [History] Metoprolol Tartrate [Lopressor] 12.5 mg PO BID 04/27/20 [History] Venlafaxine HCl ER [Effexor XR] 37.5 mg PO DAILY 04/27/20 [History] Zolpidem [Ambien] 10 mg PO HS 04/27/20 [History] Ferrous Sulfate [Iron (65 MG Elemental)] 325 mg PO BID 04/21/21 [History] Potassium Chloride [Potassium Chloride ER] 10 meq PO DAILY 04/21/21 [History] rOPINIRole HCL [Requip] 1 mg PO HS 04/21/21 [History] tiZANidine [Zanaflex] 4 mg PO BID PRN 04/21/21 [History] Albuterol Sulfate [Albuterol Sulfate Hfa] 2 puff PO RT-Q4H PRN 05/29/21 [History] Fluticasone/Umeclidin/Vilanter [Trelegy Ellipta 100-62.5-25] 1 puff INHALATION RT-DAILY 12/05/21 [History] Furosemide [Lasix] 40 mg PO DAILY 12/05/21 [History] Ibuprofen [Motrin] 800 mg PO Q8H PRN 12/05/21 [History] Phentermine HCl [Adipex-P] 37.5 mg PO DAILY 12/05/21 [History] Rizatriptan Benzoate [Rizatriptan] 10 mg PO DAILY PRN 12/05/21 [History] metOLazone [Zaroxolyn] 5 mg PO DAILY 12/05/21 [History] Cefuroxime Axetil [Ceftin] 500 mg PO BID 5 Days #10 tab 12/08/21 [Rx] Pantoprazole [Protonix] 40 mg PO AC-BRKFST #30 tab 12/08/21 [Rx] amLODIPine [Norvasc] 5 mg PO DAILY #30 tab 12/08/21 [Rx] predniSONE 10 mg PO DIRECTED #30 tab 12/08/21 [Rx] Follow up Appointment(s)/Referral(s): Erickson Li DO [Primary Care Provider] - 12/11/21 1:20 pm Patient Instructions/Handouts: Asthma (DC), COPD (Chronic Obstructive Pulmonary Disease) (DC) Activity/Diet/Wound Care/Special Instructions: Recheck blood pressure pending
[2021-12-08] MEDS ORDERED: amLODIPine 5 MG TAB PO SCH (13:15)
== END 2021-12-08 13:14 | disposition home or self-care (01) | DRG 193 ==
LOC: EC 21:38 → 4SSUR 12-05 04:57 → 3NCARDOBS 12-05 18:45
PROVIDERS: ADMIT Family Medicine; ATTEND Family Medicine
DX: J18.9 Pneumonia, unspecified organism (principal); J96.21 Acute and chronic respiratory failure with hypoxia; J44.1 Chronic obstructive pulmonary disease with (acute) exacerbation; Z68.43 Body mass index [BMI] 50.0-59.9, adult; E66.01 Morbid (severe) obesity due to excess calories; E78.5 Hyperlipidemia, unspecified; Z20.822 Contact with and (suspected) exposure to COVID-19; E88.01 Alpha-1-antitrypsin deficiency; F17.200 Nicotine dependence, unspecified, uncomplicated; F32.A Depression, unspecified; F40.240 Claustrophobia; G43.909 Migraine, unspecified, not intractable, without status migrainosus; G47.33 Obstructive sleep apnea (adult) (pediatric); G62.9 Polyneuropathy, unspecified; G89.29 Other chronic pain; I11.0 Hypertensive heart disease with heart failure; M19.90 Unspecified osteoarthritis, unspecified site; Z79.52 Long term (current) use of systemic steroids; Z79.82 Long term (current) use of aspirin; Z79.890 Hormone replacement therapy; Z79.899 Other long term (current) drug therapy; Z83.3 Family history of diabetes mellitus; Z86.16 Personal history of COVID-19; Z86.73 Personal history of transient ischemic attack (TIA), and cerebral infarction without residual deficits; Z87.01 Personal history of pneumonia (recurrent); I27.23 Pulmonary hypertension due to lung diseases and hypoxia; G43.109 Migraine with aura, not intractable, without status migrainosus
CPT/HCPCS: 36415; 71045; 71046; 71275; 80048; 80053; 81025; 83605; 83735; 83880; 84145; 84484; 85025; 85379; 87070; 87077; 87186; 87205; 87502; 87635; 93005; 94640; 96365; 96368; 96375; 99285

== ENCOUNTER → 2022-04-11 | Outpatient (CLI) | payer OTHER, MEDICARE ==
--- NOTE | 2022-04-11 16:09 | MM ---
Reason for Exam: Clinical finding. Last mammogram was performed 3 year(s) and 5 month(s) ago. Indicated Problems: Palpable abnormality of the right side for 3 Week(s). Patient History: Menarche at age 14. First Full-Term at age 26. Perimenopausal. 12/03/2018, Benign Core Biopsy on the left side. 08/06/2014, Benign Core Biopsy on the left side. Maternal aunt had breast cancer, age 50. Last menstrual period: 11/25/2021 Risk Values: Giselle 5 year model risk: 1.4%. NCI Lifetime model risk: 12.2%. Film Views: Bilateral CC views were taken. Bilateral MLO views were taken. Bilateral XCCL views were taken. Prior Study Comparison: 07/20/2014 Bilateral Diagnostic Mammogram, [facility]. 11/05/2018 Bilateral Screening Mammogram, [facility]. 12/03/2018 Left Diagnostic Mammogram, [facility]. Tissue Density: The breast tissue is heterogeneously dense. This may lower the sensitivity of mammography. Findings: Analyzed By CAD. Mammogram There is dense parenchymal tissue in an asymmetric pattern. Focal asymmetries in the outer upper aspect left breast. Pattern is complex but appears stable from prior examinations. A marker is utilized to identify a palpable region on the right breast. No underlying mammographic abnormality is evident. No spiculated or lobular masses, clusters of microcalcifications, architectural distortion or other secondary signs of malignancy are radiographically apparent. Findings: The upper outer quadrant of the right breast and the lower section of the breast of the right breast were scanned. Finding 1: Mass. Laterality: Right. Palpable Abnormality seen. Size 14 x 9 x 15 mm. 9 O'clock Quadrant: Upper outer. Depth: Middle. 10 cm cm from nipple. Shape: Irregular. Margin: Microlobulated. Echo Pattern: Hypoechoic. Posterior Acoustic Features: No Posterior Acoustic Features. Vascularity: Absent. Also scanned antiradial 5-7 at area of thickness per patient - no sonographic findings. Breast Ultrasound There is an ill-defined hypoechoic area at the area marked by the patient as a palpable region. This area measures 1.5 x 0.9 x 1.4 cm and is considered suspicious. Overall Assessment: Suspicious, BI-RAD 4 Assessment: MG 3D diag mammo w/cad JULIANA - Bilateral: Benign, BI-RAD 2. US breast limited RT - Right: Suspicious, BI-RAD 4. Management: Ultrasound Core Biopsy of the right breast. A clinical breast exam by your physician is recommended on an annual basis and results should be correlated with mammographic findings. Results were given to the patient verbally at the time of exam. A negative mammogram should not preclude biopsy of suspicious palpable abnormalities.
== END | disposition home or self-care (01) ==
LOC: RADMAMWWP 14:59
PROVIDERS: ATTEND Family Medicine
DX: R92.8 Other abnormal and inconclusive findings on diagnostic imaging of breast (principal); Z78.0 Asymptomatic menopausal state; Z80.3 Family history of malignant neoplasm of breast
CPT/HCPCS: 77062; 77066

== ENCOUNTER → 2022-05-07 | Day surgery (SDC) | payer OTHER, MEDICARE | LOC: RADUSWWP 13:12 | PROVIDERS: ATTEND Surgery | DX: C50.811 Malignant neoplasm of overlapping sites of right female breast (principal) | CPT/HCPCS: 19083; 88305; 88342; 88341; 77065; A4648 ==

== ENCOUNTER 2022-06-22 08:52 | Day surgery (SDC) | payer OTHER, MEDICARE ==
[~2022-06-22 08:52] MED LIST changes: -HYDROmorphone 0.5 MG/0.5 ML SYRINGE IVP PRN; +Pre Op ABX Message 1 EACH MISC MISCELLANE ONE; -ceFAZolin 3 GM in SODIUM CHLORIDE 0.9% 100 ML IVPB PRN; -fentaNYL (PF) 50 MCG/ML 2 ML AMP IV PRN
[2022-06-22] MEDS ORDERED: ALPRAZolam 0.5 MG TAB ONE (09:40)
[2022-06-22] MEDS ORDERED: HEPARIN SODIUM,PORCINE/PF 5,000 UNIT/0.5 ML SYRINGE SQ ONE (09:41)
[2022-06-22] MEDS ORDERED: SCOPOLAMINE 1 MG/72 HR PATCH TRANSDERM ONE (09:43)
[2022-06-22 09:45] LABS: Anisocytosis Slight; Basophils # (A) 0.1 k/uL (0-0.2); Basophils % (A) 1 %; Eosinophils # (A) 0.2 k/uL (0-0.7); Eosinophils % (A) 2 %; HCT 54.2 % (34.0-46.0); HGB 15.8 gm/dL (11.4-16.0); Hypochromasia Marked; Lymphocytes # (A) 1.7 k/uL (1.0-4.8); Lymphocytes % (A) 23 %; MCH 25.2 pg (25.0-35.0); MCHC 29.1 g/dL (31.0-37.0); MCV 86.6 fL (80.0-100.0); Mean Platelet Volume 10.1; Monocytes # (A) 0.3 k/uL (0-1.0); Monocytes % (A) 4 %; Neutrophils # (A) 5.1 k/uL (1.3-7.7); Neutrophils % (A) 68 %; Platelet Count 270 k/uL (150-450); RBC 6.26 m/uL (3.80-5.40); RDW 16.2 % (11.5-15.5); WBC 7.4 k/uL (3.8-10.6)
[2022-06-22] MEDS ORDERED: LIDOCAINE 1% INJ 10MG/ML (20 ML MDV) SQ ONE (10:35)
[2022-06-22] MEDS ORDERED: BUPIVACAIN-EPI 0.25%-1:200,000 30 ML VIAL SQ ONE ×2 (12:17→13:48)
[2022-06-22] MEDS ORDERED: ePHEDrine 50 MG/ML 1 ML VIAL ONE (12:20)
[2022-06-22] MEDS ORDERED: GLYCOPYRROLATE 0.2 MG/ML 2 ML VIAL ONE (12:20)
[2022-06-22] MEDS ORDERED: fentaNYL (PF) 50 MCG/ML 2 ML AMP ONE (12:20)
[2022-06-22] MEDS ORDERED: LIDOCAINE 2% INJ 20 MG/ML (2 ML VIAL) ONE (12:20)
[2022-06-22] MEDS ORDERED: SUCCINYLCHOLINE CHLORIDE 200 MG/10 ML VIAL IV ONE (12:20)
[2022-06-22] MEDS ORDERED: PROPOFOL 10 MG/ML 20 ML VIAL IV ONE (12:20)
[2022-06-22] MEDS ORDERED: MIDAZOLAM 2 MG/2 ML VIAL ONE (12:20)
[2022-06-22] MEDS ORDERED: HYDROmorphone (PF) 1 MG/ML ONE (12:20)
[2022-06-22] MEDS ORDERED: NEOSTIGMINE 1 MG/ML 10 ML VIAL ONE (12:20)
[2022-06-22] MEDS ORDERED: ROCURONIUM 10 MG/ML (5 ML VIAL) IV ONE (12:20)
[2022-06-22] MEDS ORDERED: PHENYLEPHRINE-0.9% NACL SYG 1,000 MCG/10 ML SYRINGE ONE (12:20)
--- NOTE | 2022-06-22 13:31 | NM ---
EXAMINATION TYPE: NM sentinel node injection DATE OF EXAM: 06/22/2022 COMPARISON: NONE INDICATION: Abnormal mammogram. Informed consent was obtained. A timeout was performed. The area around the right nipple was cleansed with alcohol. In a single dose, a total of 495 uCi Te chnetium 99m Tilmanocept was injected. The patient tolerated the procedure very well. IMPRESSIONS: 1. Successful injection for sentinel node evaluation.
[2022-06-22] MEDS ORDERED: LACTATED RINGERS 1,000 ML IV ONE (13:55)
--- NOTE | 2022-06-22 14:05 | P.OP ---
Date of Procedure: 06/22/22 Preoperative Diagnosis: Infiltrating lobular carcinoma right breast Postoperative Diagnosis: Infiltrating lobular carcinoma right breast Procedure(s) Performed: Lumpectomy with sentinel lymph node biopsy Anesthesia: MARA Surgeon: Amaya Alexander Estimated Blood Loss (ml): 20 Pathology: other (Lymph nodes for frozen section, lumpectomy) Condition: stable Disposition: PACU Indications for Procedure: Patient had a ultrasound core biopsy due to abnormality in the right breast. It came back as infiltrating lobular carcinoma. Based on the size was felt to be early stage breast cancer so she elected for lumpectomy with sentinel lymph node biopsy Description of Procedure: Patient's taken to the OR where she is prepped and draped in the usual sterile manner under general endotracheal anesthetic. Beginning in the axilla, navigator probe was used to scan the axilla. The superficial readings were about 25. Small skin incision was made and dissection was carried out through the subcutaneous tissues. Primary lymph node was able to be identified and sh owed in vivo count of about 120. There were 2 lymph nodes abutting each other. These were removed and ex vivo count was about 440. There was a secondary lymph node identified with an in vivo count of about 80. Ex vivo was 230. These were sent for frozen section. The skin in the axilla was closed with 4-0 Vicryl in a subcuticular manner and the incision was covered. Attention was then turned to the breast. The localizing wire was fairly superficial. Local anesthetic was instilled didn't of the skin and breast tissue. An incision was made. Subcutaneous flaps were raised over the breast tissue. The breast tissue around the end of the wire was then sharply dissected free. The specimen was tagged for orientation and sent for mammography. Breast tissue is rather dense with a firm area in the midportion. The rest of the breast tissue was firm and no suspicious masses were noted. Small bleeding points are controlled with electrocautery. Subcutaneous tissues were reapproximated using 3-0 Vicryl. The skin was closed with 4-0 Vicryl in a subcuticular manner. The frozen section came back as negative for metastatic disease and 3 lymph nodes. Specimen mammography showed the area of concern to have been removed. Steri-Strips and dressings were applied. She tolerated the procedure without difficulty and was taken to recovery room in satisfactory condition. According to or personnel, all counts were correct. Plan - Discharge Summary Discharge Rx Participant: No New Discharge Prescriptions: New HYDROcodone/APAP 5-325MG [[place] 5-325] 1 - 2 tab PO Q4H PRN #30 tab PRN Reason: Pain No Action DULoxetine HCL [Cymbalta] 90 mg PO HS Butalb/APAP/Caff 50-325-40Mg [Fioricet 50-325-40] 1 tab PO Q8HR PRN PRN Reason: Migraine Headache Loratadine [Claritin] 10 mg PO DAILY Aspirin EC [Ecotrin Low Dose] 81 mg PO DAILY HYDROcodone/APAP 10-325MG [[place] 10-325] 1 tab PO TID PRN PRN Reason: Pain Venlafaxine HCl ER [Effexor XR] 37.5 mg PO DAILY Metoprolol Tartrate [Lopressor] 12.5 mg PO HS Atorvastatin [Lipitor] 20 mg PO HS ARIPiprazole [Abilify] 5 mg PO HS Zolpidem [Ambien] 10 mg PO HS Potassium Chloride [Potassium Chloride ER] 10 meq PO DAILY Fluticasone/Umeclidin/Vilanter [Trelegy Ellipta 100-62.5-25] 1 puff INHALATION RT-DAILY Furosemide [Lasix] 40 mg PO DAILY Ibuprofen [Motrin] 800 mg PO Q8H PRN PRN Reason: Pain metOLazone [Zaroxolyn] 5 mg PO DAILY amLODIPine [Norvasc] 5 mg PO DAILY #30 tab Ferrous Sulfate [Iron (65 MG Elemental)] 325 mg PO BID rOPINIRole HCL [Requip] 1 mg PO HS tiZANidine [Zanaflex] 4 mg PO BID PRN PRN Reason: Muscle Spasm Albuterol Sulfate [Albuterol Sulfate Hfa] 2 puff PO RT-Q4H PRN PRN Reason: Shortness Of Breath Rizatriptan Benzoate [Rizatriptan] 10 mg PO DAILY PRN PRN Reason: Migraine Headache Verapamil HCl [Verapamil ER] 180 mg PO DAILY Topiramate [Topamax] 50 mg PO BID Discharge Medication List Butalb/APAP/Caff 50-325-40Mg [Fioricet 50-325-40] 1 tab PO Q8HR PRN 05/22/17 [History] DULoxetine HCL [Cymbalta] 90 mg PO HS 05/22/17 [History] Aspirin EC [Ecotrin Low Dose] 81 mg PO DAILY 06/06/18 [History] Loratadine [Claritin] 10 mg PO DAILY 06/06/18 [History] HYDROcodone/APAP 10-325MG [[place] 10-325] 1 tab PO TID PRN 08/18/19 [History] ARIPiprazole [Abilify] 5 mg PO HS 04/27/20 [History] Atorvastatin [Lipitor] 20 mg PO HS 04/27/20 [History] Metoprolol Tartrate [Lopressor] 12.5 mg PO HS 04/27/20 [History] Venlafaxine HCl ER [Effexor XR] 37.5 mg PO DAILY 04/27/20 [History] Zolpidem [Ambien] 10 mg PO HS 04/27/20 [History] Ferrous Sulfate [Iron (65 MG Elemental)] 325 mg PO BID 04/21/21 [History] Potassium Chloride [Potassium Chloride ER] 10 meq PO DAILY 04/21/21 [History] rOPINIRole HCL [Requip] 1 mg PO HS 04/21/21 [History] tiZANidine [Zanaflex] 4 mg PO BID PRN 04/21/21 [History] Albuterol Sulfate [Albuterol Sulfate Hfa] 2 puff PO RT-Q4H PRN 05/29/21 [History] Fluticasone/Umeclidin/Vilanter [Trelegy Ellipta 100-62.5-25] 1 puff INHALATION RT-DAILY 12/05/21 [History] Furosemide [Lasix] 40 mg PO DAILY 12/05/21 [History] Ibuprofen [Motrin] 800 mg PO Q8H PRN 12/05/21 [History] Rizatriptan Benzoate [Rizatriptan] 10 mg PO DAILY PRN 12/05/21 [History] metOLazone [Zaroxolyn] 5 mg PO DAILY 12/05/21 [History] amLODIPine [Norvasc] 5 mg PO DAILY #30 tab 12/08/21 [Rx] Topiramate [Topamax] 50 mg PO BID 04/25/22 [History] Verapamil HCl [Verapamil ER] 180 mg PO DAILY 04/25/22 [History] HYDROcodone/APAP 5-325MG [[place] 5-325] 1 - 2 tab PO Q4H PRN #30 tab 06/22/22 [Rx] Follow up Appointment(s)/Referral(s): Amaya Alexander DO [Doctor of Osteopathic Medicine] - 1 Week Activity/Diet/Wound Care/Special Instructions: Keep the dressing on until Saturday. Then the dressing may be removed and you may shower. Use light dressing if the incisions are rubbing on your clothing or draining. Ice to the incisions for 24-48 hours. Wear a well supporting bra. You may take Tylenol or Motrin instead of the pain pills. Call if questions or concerns. Discharge Disposition: HOME SELF-CARE
[2022-06-22] MEDS ORDERED: ALBUTEROL NEBULIZED 2.5 MG/3 ML INHALATION ONE (14:07)
[2022-06-22 14:18] VITALS: TEMP 97
[2022-06-22] MEDS: HYDROmorphone 0.5 MG/0.5 ML SYRINGE IVP PRN ×2 (14:20→14:53)
[2022-06-22 15:10] VITALS: PULSE 70; RESP 12
[2022-06-22] MEDS ORDERED: HYDROcodone/APAP 5-325MG 1 EACH TAB ONE (15:23)
[2022-06-22] MEDS ORDERED: HYDROcodone/APAP 5-325MG 1 EACH TAB PO ONE (15:24)
[2022-06-22 15:27] VITALS: BP 90/55
== END 2022-06-22 15:55 | disposition home or self-care (01) ==
LOC: OR 08:52
PROVIDERS: ATTEND Surgery
DX: D05.01 Lobular carcinoma in situ of right breast (principal); I10 Essential (primary) hypertension; J44.9 Chronic obstructive pulmonary disease, unspecified; D64.9 Anemia, unspecified; F32.A Depression, unspecified; R01.1 Cardiac murmur, unspecified; G90.50 Complex regional pain syndrome I, unspecified; Z79.1 Long term (current) use of non-steroidal anti-inflammatories (NSAID); Z79.899 Other long term (current) drug therapy; Z79.51 Long term (current) use of inhaled steroids; G43.909 Migraine, unspecified, not intractable, without status migrainosus; G47.30 Sleep apnea, unspecified; Z86.73 Personal history of transient ischemic attack (TIA), and cerebral infarction without residual deficits; Z90.49 Acquired absence of other specified parts of digestive tract; Z88.2 Allergy status to sulfonamides; Z88.5 Allergy status to narcotic agent; Z80.42 Family history of malignant neoplasm of prostate; Z83.3 Family history of diabetes mellitus; Z82.49 Family history of ischemic heart disease and other diseases of the circulatory system; Z80.3 Family history of malignant neoplasm of breast; Z17.0 Estrogen receptor positive status [ER+]; E78.5 Hyperlipidemia, unspecified; E66.01 Morbid (severe) obesity due to excess calories; Z68.44 Body mass index [BMI] 60.0-69.9, adult; M19.90 Unspecified osteoarthritis, unspecified site; Z91.018 Allergy to other foods; Z79.82 Long term (current) use of aspirin; F17.200 Nicotine dependence, unspecified, uncomplicated; Z80.9 Family history of malignant neoplasm, unspecified
CPT/HCPCS: 19301; 38525; 81025; 84132; 85025; 88342; 88331; 88332; 88307; 88341; 76098; 19281; 38792; C1819; A9520; J2250; J0330; J1100; J2710; J2405; J2001 ×2; J3010; J1170 ×2; J2370; J2704

== ENCOUNTER → 2022-07-24 | Outpatient (CLI) | payer OTHER, MEDICARE | END | disposition home or self-care (01) | LOC: LABWHC1 10:54 | PROVIDERS: ATTEND Radiology Radiation Oncology | DX: Z01.812 Encounter for preprocedural laboratory examination (principal); C50.411 Malignant neoplasm of upper-outer quadrant of right female breast | CPT/HCPCS: 81025 ==

== ENCOUNTER → 2022-11-08 | Outpatient (CLI) | payer OTHER, MEDICARE ==
[2022-11-08 23:32] LABS: African American GFR (CKD) 123.2 (60.0-200.0); Anion Gap 6.5 mmol/L (10.00-18.00); Blood Urea Nitrogen 12.9 mg/dL (9.0-27.0); Carbon Dioxide 29.5 mmol/L (20.0-27.5); Non-African American GFR(CKD) 106.3 (60.0-200.0); Potassium 4.4 mmol/L (3.5-5.5)
[2022-11-09 00:05] LABS: Basophils # (A) 0.08 X 10*3/uL (0.00-0.10); Basophils % (A) 0.9 %; Eosinophils # (A) 0.12 X 10*3/uL (0.04-0.35); Eosinophils % (A) 1.4 %; HCT 47.9 % (37.2-46.3); HGB 14.6 g/dL (12.0-15.0); Immature Grans, Automated 1.6 %; Lymphocytes # (A) 1.45 X 10*3/uL (0.90-5.00); Lymphocytes % (A) 16.9 %; MCH 26.7 pg (27.0-32.0); MCHC 30.5 g/dL (32.0-37.0); MCV 87.6 fL (80.0-97.0); Monocytes # (A) 0.51 X 10*3/uL (0.20-1.00); NRBC Per 100 WBC 0 /100 WBCS (0.0-0.0); Neutrophils # (A) 6.27 X 10*3/uL (1.80-7.70); Neutrophils % (A) 73.2 %; Platelet Count 225 X 10*3/uL (140-440); RBC 5.47 X 10*6/uL (4.10-5.20); RDW 17.8 % (11.5-14.5); WBC 8.57 X 10*3/uL (4.50-10.00)
== END | disposition home or self-care (01) ==
LOC: LABPAT 15:14
PROVIDERS: ATTEND Obstetrics & Gynecology
DX: Z01.812 Encounter for preprocedural laboratory examination (principal); Z85.3 Personal history of malignant neoplasm of breast; I10 Essential (primary) hypertension
CPT/HCPCS: 80051; 82565; 82947; 84520; 85025; 87086; 93005

== ENCOUNTER 2022-11-13 07:35 | Day surgery (SDC) | payer OTHER, MEDICARE ==
[2022-11-09 09:22] VITALS: BMI 54.9
[~2022-11-13 07:35] MED LIST changes: +HYDROmorphone 0.5 MG/0.5 ML SYRINGE IVP PRN; -MIDAZOLAM 2 MG/2 ML VIAL IV PRN
[2022-11-13] MEDS ORDERED: KETAMINE 10 MG/ML 20 ML VIAL ONE (09:10)
[2022-11-13] MEDS ORDERED: SUCCINYLCHOLINE CHLORIDE 200 MG/10 ML VIAL IV ONE (09:10)
[2022-11-13] MEDS ORDERED: PROPOFOL 10 MG/ML 20 ML VIAL IV ONE (09:10)
[2022-11-13] MEDS ORDERED: GLYCOPYRROLATE 0.2 MG/ML 2 ML VIAL ONE (09:10)
[2022-11-13] MEDS ORDERED: fentaNYL (PF) 50 MCG/ML 2 ML AMP ONE (09:10)
[2022-11-13] MEDS ORDERED: LIDOCAINE 2% INJ 20 MG/ML (2 ML VIAL) ONE (09:10)
[2022-11-13] MEDS ORDERED: NEOSTIGMINE 1 MG/ML 10 ML VIAL ONE (09:10)
[2022-11-13] MEDS ORDERED: ROCURONIUM 10 MG/ML (5 ML VIAL) IV ONE (09:10)
[2022-11-13] MEDS ORDERED: BUPIVACAINE (PF) 0.5% 30 ML VIAL SQ ONE ×2 (09:52)
[2022-11-13] MEDS ORDERED: Acetaminophen-Codeine 300-30mg TAB PO PRN ×2 (11:01)
[2022-11-13] MEDS ORDERED: IBUPROFEN 600 MG TAB PO PRN (11:01)
[2022-11-13] MEDS ORDERED: METOCLOPRAMIDE 5 MG/ML 2 ML VIAL IVP PRN (11:01)
[2022-11-13] MEDS ORDERED: diphenhydrAMINE 50 MG/ML 1 ML VIAL IVP PRN (11:01)
[2022-11-13] MEDS ORDERED: KETOROLAC 15 MG/ML 1 ML VIAL IVP PRN (11:01)
[2022-11-13] MEDS ORDERED: SIMETHICONE 80 MG CHEWABLE PO PRN (11:01)
[2022-11-13] MEDS ORDERED: ONDANSETRON 4 MG/2 ML VIAL IVP PRN (11:01)
[2022-11-13 11:15] VITALS: TEMP 97
[2022-11-13] MEDS ORDERED: LACTATED RINGERS 1,000 ML IV SCH (11:15)
--- NOTE | 2022-11-13 11:16 | P.OP ---
Date of Procedure: 11/13/22 Preoperative Diagnosis: #1. History of previous breast cancer #2. Morbid obesity Postoperative Diagnosis: Same plus #3. Extensive abdominopelvic adhesive disease Procedure(s) Performed: #1. Laparoscopic bilateral salpingo-oophorectomy #2. Lysis of adhesions Anesthesia: MARA Surgeon: Guillermo Velásquez Wireless Sales Consultant #1: Linda Lloyd Estimated Blood Loss (ml): 100 IV fluids (ml): 300 Urine output (ml): 20 Pathology: other (Bilateral tubes and ovaries) Condition: stable Disposition: PACU Operative Findings: Preoperatively, the patient had been referred by hematology for BSO as she had a history of breast cancer that is potentially responsive to hormones and was felt to be too high of a risk to be on hormonal therapy given her habitus, smoking, and sedentary lifestyle. Though not a good surgical candidate, the decision was made to proceed after discussion with the patient and with the cannon fire direction specialist. Under anesthesia, bimanual pelvic examination demonstrated a 4-5 week slightly anteverted normal uterus with nonpalpable adnexa bilaterally. Intraoperatively, there was noted to be dense adhesions from the omentum to the anterior abdominal wall to the low the umbilicus. In the pelvis and the bowel was also fairly densely adherent to the bilateral ovaries and posterior portion of the uterus making everything significantly less mobile. We were able ultimately to free up the ovaries from adhesions safely to allow for the BSO to continue. There may be a fimbrial portion of either tube remaining intra-abdominally and perhaps a small portion of the right base of the tube near the cornu. Description of Procedure: The patient was prepped and draped in usual fashion after general endotracheal anesthesia was administered by the anesthesiologist. A weighted speculum was placed and the bladder drained of approximately 20 mL of clear jesse urine. The anterior lip the cervix was grasped with single-tooth tenaculum and an acorn cannula placed for manipulation. Attention was then turned to the abdomen which was morbidly obese. A site was selected approximately 3-4 cm above the umbilicus in the midline where a half a centimeter incision was made in the transverse plane allowing insertion of a 5 mm optical trocar under direct visualization without difficulty. A pneumoperitoneum was established. There was fairly dense midline primarily adhesions and some on the left of midline between the omentum and the anterior abdominal wall. I was able to navigate around the otic adhesions on the patient's right side to see usin the pelvis which was safe to place a trocar on the left. A site was therefore selected in the left lower quadrant where a roughly 10 mm incision was made along insertion of a 10 mm trocar under direct visualization without difficulty. The blunt probe was utilized to push the bowel from the pelvis and the remainder of the pelvic findings are as noted above. Decision was made to proceed laparoscopically at this time despite the adhesive concerns given the patient's risk for an open procedure. A site was selected in the right lower quadrant where a half a centimeter incision was made in the transverse plane allowing insertion of a 5 mm trocar under direct visualization without difficulty. A grasper was utilized to elevate the ovary and the laparoscopic scissors were utilized to sharply dissected the ovary from the underlying epiploic appendages which were fairly densely adherent. Once the ovary was adequately freed, the scissors were replaced with a LigaSure device which is utilized to cauterize and cut hugging the ovary and the entire way. Once the ovary was removed it was set in the anterior cul-de-sac. The grasper was utilized to elevate the fallopian tube at its fimbriated end which was again densely adhered to the underlying epiploic appendages and bowel. The LigaSure device was utilized to remove the fallopian tube to its origin at the cornea and it was again placed in the anterior cul-de-sac. The LigaSure device was removed and a laparoscopic specimen bag was placed into the abdomen where the tube and ovary were placed within it and it was closed. Was left intra-abdominally and attention was turn ed to the right side where similar operations were carried out. The tube and ovary were again removed separately secondary to the adhesive concerns. These were then also placed in a separate Endobag. The entire 10 mm trocar was then removed followed by the 2 separate Endobag's through the incision. The trocar was replaced within the abdomen and thorough suction irrigation carried out. There was no ongoing significant bleeding of any kind. Nevertheless, Surgicel was no was blown onto the bilateral surgical beds. Observation for a number of minutes demonstrated no ongoing bleeding. All instrumentation was then removed in the entire pneumoperitoneum evacuated through the ports. The ports were then removed and the skin closed with interrupted subcuticular stitches of 4-0 Vicryl followed by half-inch Steri-Strips placed with Mastisol. The 3 incisions were injected with an equal to vision of 10 mL of half percent Marcaine without epinephrine. Estimated blood loss for the case is approximately 100 mL but was difficult to ascertain secondary to the irrigation used. There were no complications. All sponge, instrument, needle counts were correct. The patient tolerated the procedure well and proceeded to the recovery room in stable condition.
[2022-11-13] MEDS ORDERED: KETOROLAC 15 MG/ML 1 ML VIAL IVP ONE (11:31)
[2022-11-13 11:36] VITALS: RESP 16
[2022-11-13] MEDS ORDERED: LACTATED RINGERS 1,000 ML IV ONE (11:45)
[2022-11-13 12:43] VITALS: BP 119/72; PULSE 64
== END 2022-11-13 13:05 | disposition home or self-care (01) ==
LOC: OR 07:35
PROVIDERS: ATTEND Obstetrics & Gynecology
DX: N83.202 Unspecified ovarian cyst, left side (principal); N83.201 Unspecified ovarian cyst, right side; N83.8 Other noninflammatory disorders of ovary, fallopian tube and broad ligament; Z85.3 Personal history of malignant neoplasm of breast; E66.01 Morbid (severe) obesity due to excess calories; N73.6 Female pelvic peritoneal adhesions (postinfective); F17.210 Nicotine dependence, cigarettes, uncomplicated; F12.20 Cannabis dependence, uncomplicated; Z88.2 Allergy status to sulfonamides; Z88.5 Allergy status to narcotic agent; Z90.49 Acquired absence of other specified parts of digestive tract; Z98.890 Other specified postprocedural states; Z79.1 Long term (current) use of non-steroidal anti-inflammatories (NSAID); Z79.2 Long term (current) use of antibiotics; Z79.01 Long term (current) use of anticoagulants; Z79.02 Long term (current) use of antithrombotics/antiplatelets; Z79.51 Long term (current) use of inhaled steroids; Z79.82 Long term (current) use of aspirin; Z79.83 Long term (current) use of bisphosphonates; Z79.811 Long term (current) use of aromatase inhibitors; Z79.891 Long term (current) use of opiate analgesic; Z79.899 Other long term (current) drug therapy; I10 Essential (primary) hypertension; E78.5 Hyperlipidemia, unspecified; G47.33 Obstructive sleep apnea (adult) (pediatric); J45.909 Unspecified asthma, uncomplicated; E07.9 Disorder of thyroid, unspecified; Z86.73 Personal history of transient ischemic attack (TIA), and cerebral infarction without residual deficits
CPT/HCPCS: 81025; 86900; 86901; 86850; 58661; J0330; J1100; J2710; J2405; J3010; J1885; J2704; J2001; 88305

== ENCOUNTER → 2023-04-26 | Outpatient (CLI) | payer OTHER, MEDICARE ==
--- NOTE | 2023-04-26 14:57 | BD ---
EXAMINATION TYPE: Axial Bone Density DATE OF EXAM: 04/26/2023 CLINICAL HISTORY: 53 years old Female. ICD-10 CODE: C50.411 CARCINOMA UPPER OUTER QUADRANT RT BREAS T Height: 5'3" Weight: 300lb FRAX RISK QUESTIONS: Secondary Osteoporosis: Current Tobacco Use: yes RISK FACTORS HISTORY OF: Active: no Postmenopausal woman: yes Poor Health: yes MEDICATIONS: Thyroid Medications: Which medication: Synthroid How Long: year Additional Medications: cholesterol med, bp meds, cardiac meds, hormone eda, vitamin d Additional History: breast cancer with radiation 2021 EXAM MEASUREMENTS: Bone mineral densitometry was performed using the [employer] System. Bone mineral density as measured about the Lumbar spine is: ----- L1-L4(G/cm2): 1.166 T Score Values are as follows: ----- L1: 0.4 ----- L2: 0.5 ----- L3: -1.0 ----- L4: -0.4 ----- L1-L4: -0.1 Z Score Values are as follows: ----- L1: -0.3 ----- L2: -0.2 ----- L3: -1.7 ----- L4: -1.1 ----- L1-L4: -0.8 First dexa at [facility] Limited study. Patient could not tolerate test. Only able to scan lumbar spine. IMPRESSION: Normal (Values between +1 and -1 indicate normal bone mass). Consider repeating this study in 5 year s or sooner if there is some new clinical indication. NOTE: T-SCORE=SD OF THE YOUNG ADULT MEAN.
--- NOTE | 2023-04-29 09:33 | MM ---
Reason for Exam: Screening (asymptomatic). Last mammogram was performed 1 year(s) and 1 month(s) ago. Patient History: Menarche at age 14. First Full-Term at age 26. Perimenopausal. Breast cancer, right, age 52. 06/22/2022, Malignant MG pre op needle loc RT on the right side. 05/07/2022, Malignant US biopsy breast VAD RT on the right side. 12/03/2018, Benign Core Biopsy on the left side. 08/06/2014, Benign Core Biopsy on the left side. Maternal aunt had breast cancer, age 50. Prior Study Comparison: 12/03/2018 Left Diagnostic Mammogram, [facility]. 04/11/2022 Bilateral MG 3D diag mammo w/cad JULIANA, [facility]. 05/07/2022 Right MG diagnostic mammo RT wo CAD, [facility]. Tissue Density: The breast tissue is heterogeneously dense. This may lower the sensitivity of mammography. Findings: Analyzed By CAD. Previous mammotome biopsy left breast. Similar asymmetric breast tissue in the left axilla. Post surgical changes of the right breast are demonstrated. A few round appearing scattered calcifications within both breasts. No new suspicious mass or group of calcifications within either breast. Overall Assessment: Benign, BI-RAD 2 Management: Screening Mammogram of both breasts in 1 year. A clinical breast exam by your physician is recommended on an annual basis and results should be correlated with mammographic findings. Electronically signed and approved by: Casimiro Greenberg D.O.
== END | disposition home or self-care (01) ==
LOC: RADMAMWWP 13:56
PROVIDERS: ATTEND Internal Medicine Hematology & Oncology
DX: Z12.31 Encounter for screening mammogram for malignant neoplasm of breast (principal); C50.411 Malignant neoplasm of upper-outer quadrant of right female breast; M85.89 Other specified disorders of bone density and structure, multiple sites; F32.A Depression, unspecified; M79.7 Fibromyalgia; Z71.3 Dietary counseling and surveillance; Z78.0 Asymptomatic menopausal state; Z80.3 Family history of malignant neoplasm of breast
CPT/HCPCS: 77063; 77067; 77080

== ENCOUNTER 2023-04-30 10:58 | Inpatient (IN) | payer OTHER, MEDICARE ==
--- NOTE | 2023-04-30 11:55 | ED ---
General Adult HPI - General Chief complaint: Shortness of Breath Stated complaint: MAMIE Time Seen by Provider: 04/30/23 11:15 Source: patient, RN notes reviewed, old records reviewed Mode of arrival: ambulatory Limitations: no limitations - History of Present Illness Initial comments: 53-year-old female presenting with increased cough and dyspnea. History of oxygen dependent COPD. Patient had presented to the special crimes investigator office and was found to be hypoxic. She was sent to the emergency department for evaluation. Patient initially in the 60s and 70s on pulse oximetry. She reports a productive cough with green and yellow sputum. No fevers. No central chest pain. - Related Data Home Medications Medication Instructions Recorded Confirmed Butalb/APAP/Caff 50-325-40Mg 1 tab PO Q8HR PRN 05/22/17 11/13/22 [Fioricet 50-325-40] DULoxetine HCL [Cymbalta] 90 mg PO HS 05/22/17 11/13/22 Aspirin EC [Ecotrin Low Dose] 81 mg PO DAILY 06/06/18 11/13/22 Loratadine [Claritin] 10 mg PO DAILY 06/06/18 11/13/22 HYDROcodone/APAP 10-325MG [[place] 1 tab PO TID PRN 08/18/19 11/13/22 10-325] ARIPiprazole [Abilify] 5 mg PO HS 04/27/20 11/13/22 Atorvastatin [Lipitor] 20 mg PO HS 04/27/20 11/13/22 Metoprolol Tartrate [Lopressor] 12.5 mg PO HS 04/27/20 11/13/22 Venlafaxine HCl ER [Effexor XR] 37.5 mg PO DAILY 04/27/20 11/13/22 Ferrous Sulfate [Iron (65 MG 325 mg PO BID 04/21/21 11/13/22 Elemental)] Potassium Chloride [Potassium 10 meq PO DAILY 04/21/21 11/13/22 Chloride ER] rOPINIRole HCL [Requip] 1 mg PO HS 04/21/21 11/13/22 tiZANidine [Zanaflex] 4 mg PO BID PRN 04/21/21 11/13/22 Albuterol Sulfate [Albuterol 2 puff PO RT-Q4H PRN 05/29/21 11/13/22 Sulfate Hfa] Fluticasone/Umeclidin/Vilanter 1 puff INHALATION RT-DAILY 12/05/21 11/13/22 [Trelegy Ellipta 100-62.5-25] Furosemide [Lasix] 40 mg PO DAILY 12/05/21 11/13/22 Ibuprofen [Motrin] 800 mg PO Q8H PRN 12/05/21 11/13/22 Rizatriptan Benzoate [Rizatriptan] 10 mg PO DAILY PRN 12/05/21 11/13/22 metOLazone [Zaroxolyn] 5 mg PO DAILY 12/05/21 11/13/22 Topiramate [Topamax] 50 mg PO BID 04/25/22 11/13/22 Verapamil HCl [Verapamil ER] 180 mg PO DAILY 04/25/22 11/13/22 traZODone HCL [Desyrel] 50 mg PO HS 11/09/22 11/13/22 Previous Rx's Medication Instructions Recorded amLODIPine [Norvasc] 5 mg PO DAILY #30 tab 12/08/21 Allergies Allergy/AdvReac Type Severity Reaction Status Date / Time morphine Allergy Itching/hiv Verified 04/30/23 11:02 es/sob peach Allergy Rash/Hives Verified 04/30/23 11:02 pear Allergy Unknown Verified 04/30/23 11:02 Sulfa (Sulfonamide Allergy RAPID Verified 04/30/23 11:02 Antibiotics) HEART RATE AND HIVES Review of Systems ROS Statement: Those systems with pertinent positive or pertinent negative responses have been documented in the HPI. ROS Other: All systems not noted in ROS Statement are negative. Past Medical History Past Medical History: Asthma, COPD, CVA/TIA, Hyperlipidemia, Hypertension, Osteoarthritis (OA), Pneumonia, Sleep Apnea/CPAP/BIPAP, Thyroid Disorder Additional Past Medical History / Comment(s): RSD dx 2012 lesions on brain,"memory issues" possible MS no definitive dx as of yet, peripheral neuropathy-diogenes feet/legs arms, migraines, murmur, occular hypertension, probably stroke-no residual effects, "top part of heart beats slower that the bottom", no cpap used, uses oxygen all the time 2liters, anemia. no insurance coverage for synthroid. History of Any Multi-Drug Resistant Organisms: None Reported Past Surgical History: Appendectomy, Section, Cholecystectomy, Heart Catheterization, Orthopedic Surgery Additional Past Surgical History / Comment(s): diogenes carpal tunnel, left cubital tunnel, d&c, spinal puncture, rt knee surgery arthroscopic Past Anesthesia/Blood Transfusion Reactions: Motion Sickness Additional Past Anesthesia/Blood Transfusion Reaction / Comment(s): claust rophobia. "has had blood in past,-no reaction" Past Psychological History: Anxiety, Depression Smoking Status: Current every day smoker Past Alcohol Use History: None Reported Past Drug Use History: None Reported - Past Family History Father Family Medical History: Cancer Brother(s) Family Medical History: Diabetes Mellitus Mother Family Medical History: No Reported History General Exam Limitations: no limitations General appearance: alert, in no apparent distress Head exam: Present: atraumatic, normocephalic Eye exam: Present: normal appearance, PERRL ENT exam: Present: normal exam Neck exam: Present: normal inspection. Absent: tenderness, meningismus Respiratory exam: Present: respiratory distress, wheezes, rhonchi, decreased breath sounds Cardiovascular Exam: Present: regular rate, normal rhythm GI/Abdominal exam: Present: soft. Absent: distended, tenderness, guarding Extremities exam: Present: normal inspection, normal capillary refill. Absent: pedal edema Neurological exam: Present: alert, oriented X3, CN II-XII intact. Absent: motor sensory deficit Psychiatric exam: Present: normal affect, normal mood Skin exam: Present: warm, dry, intact. Absent: cyanosis, diaphoretic Course Vital Signs 04/30/23 04/30/23 04/30/23 11:00 11:15 11:29 Temperature 98.2 F Pulse Rate 87 Respiratory 26 H Rate Blood Pressure 161/89 O2 Sat by Pulse 68 L Oximetry Fraction of 40 40 Inspired Oxygen (FIO2) 04/30/23 04/30/23 04/30/23 11:32 12:47 12:57 Temperature Pulse Rate 69 68 72 Respiratory 18 14 Rate Blood Pressure 147/86 168/94 O2 Sat by Pulse 94 L 99 Oximetry Fraction of 40 Inspired Oxygen (FIO2) - Reevaluation(s) Reevaluation #1: 04/30/23 13:06 Venous blood gas and BNP level are pending. Viral swabs are negative. Troponin negative. Medical Decision Making - Medical Decision Making Was pt. sent in by a medical professional or institution (, PA, PLASTIC SHAPER, urgent care, hospital, or long-term...) When possible be specific @ -[No] Did you speak to anyone other than the patient for history (EMS, parent, family, police, friend...)? What history was obtained from this source @ -[No] Did you review nursing and triage notes (agree or disagree)? Why? @ -[I reviewed and agree with nursing and triage notes] Were old charts reviewed (outside hosp., previous admission, EMS record, old EKG, old radiological studies, urgent care reports/EKG's, long-term records)? Report findings @ -[No old charts were reviewed] Differential Diagnosis (chest pain, altered mental status, abdominal pain women, abdominal pain men, vaginal bleeding, weakness, fever, dyspnea, syncope, headache, dizziness, GI bleed, back pain, seizure, CVA, palpatations, mental health, musculoskeletal)? @ -Differential Dyspnea: Coronary syndrome, arrhythmia, tamponade, asthma, COPD, pulmonary embolism, pneumonia, pneumothorax, pulmonary effusion, anaphylaxis, diabetic ketoacidosis, flailed chest, pulmonary contusion, diaphragmatic rupture, anemia, neuromuscular, this is not meant to be an all-inclusive list. EKG interpreted by me (3pts min.). @ -EKG: Sinus rhythm with ectopic complexes rate of 71, CT interval 149, QRS duration 87, QTC 403, low voltage. X-rays interpreted by me (1pt min.). @ Hypoinflation, bilateral infiltrate CT interpreted by me (1pt min.). @ -[None done] U/S interpreted by me (1pt. min.). @ -[None done] What testing was considered but not performed or refused? (CT, X-rays, U/S, labs)? Why? @ -[None] What meds were considered but not given or refused? Why? @ -[None] Did you discuss the management of the patient with other professionals (professionals i.e. , PA, PLASTIC SHAPER, lab, RT, psych nurse, adoption social worker, advertising dispatch clerk, teacher, supervisor dog license officer, family caseworker)? Give summary @ -[Dr. Li Was smoking cessation discussed for >3mins.? @ -[No] Was critical care preformed (if so, how long)? @ Yes, 35 minutes Were there social determinants of health that impacted care today? How? (Homelessness, low income, unemployed, alcoholism, drug addiction, transportation, low edu. Level, literacy, decrease access to med. care, long-term, rehab)? @ -[No] Was there de-escalation of care discussed even if they declined (Discuss DNR or withdrawal of care, Hospice)? DNR status @ -[No] What co-morbidities impacted this encounter? (DM, HTN, Smoking, COPD, CAD, Cancer, CVA, ARF, Chemo, Hep., AIDS, mental health diagnosis, sleep apnea, morbid obesity)? @ -[Asthma, COPD Was patient admitted / discharged? Hospital course, mention meds given and r oute, prescriptions, significant lab abnormalities, going to OR and other pertinent info. @ -53-year-old female with worsening cough and dyspnea, hypoxia. Patient placed on BiPAP for respiratory support. Chest x-ray questioning bilateral lower lobe infiltrate. Patient has minimally elevated d-dimer however this is been chronic in nature and patient has had multiple CT angiography is which were negative for PE. I have a low suspicion for PE at this time. Patient will require continued support with BiPAP and admission for COPD with pneumonia. Pulmonology will be placed on consult. Undiagnosed new problem with uncertain prognosis? @ -[No] Drug Therapy requiring intensive monitoring for toxicity (Heparin, Nitro, Insulin, Cardizem)? @ -[No] Were any procedures done? @ -[No] Diagnosis/symptom? @ -[default] Acute, or Chronic, or Acute on Chronic? @ -[default] Uncomplicated (without systemic symptoms) or Complicated (systemic symptoms)? @ -[default] Side effects of treatment? @ -[No] Exacerbation, Progression, or Severe Exacerbation? @ -[No] Poses a threat to life or bodily function? How? (Chest pain, [place], [place], pneumonia, PE, COPD, DKA, ARF, appy, cholecystitis, CVA, Diverticulitis, Homicidal, Suicidal, threat to staff... and all critical care pts) @ -[No] - Lab Data Result diagrams: 04/30/23 11:30 04/30/23 11:30 Lab Results 04/30/23 04/30/23 04/30/23 Range/Units 11:30 11:30 11:30 WBC 6.7 (3.8-10.6) k/uL RBC 5.87 H (3.80-5.40) m/uL Hgb 14.1 (11.4-16.0) gm/dL Hct 49.8 H (34.0-46.0) % MCV 84.9 (80.0-100.0) fL MCH 24.0 L (25.0-35.0) pg MCHC 28.3 L (31.0-37.0) g/dL RDW 16.6 H (11.5-15.5) % MPV 11.8 Hypochromasia Marked Poikilocytosis Slight Anisocytosis Slight PT 10.4 (9.0-12.0) sec INR 1.0 (<1.2) APTT 23.6 (22.0-30.0) sec D-Dimer 0.94 H (<0.60) mg/L FEU Sodium 140 (137-145) mmol/L Potassium 4.3 (3.5-5.1) mmol/L Chloride 98 (98-107) mmol/L Carbon Dioxide 40 H (22-30) mmol/L Anion Gap 2 mmol/L BUN 12 (7-17) mg/dL Creatinine 0.51 L (0.52-1.04) mg/dL Est GFR (CKD-EPI)AfAm >90 (>60 ml/min/1.73 sqM) Est GFR (CKD-EPI)NonAf >90 (>60 ml/min/1.73 sqM) Glucose 104 H (74-99) mg/dL Plasma Lactic Acid Judd (0.7-2.0) mmol/L Calcium 9.7 (8.4-10.2) mg/dL Total Bilirubin 0.8 (0.2-1.3) mg/dL AST 28 (14-36) U/L ALT 18 (4-34) U/L Alkaline Phosphatase 105 (38-126) U/L Troponin I (0.000-0.034) ng/mL Total Protein 7.0 (6.3-8.2) g/dL Albumin 4.0 (3.5-5.0) g/dL Influenza Type A (PCR) (Not Detectd) Influenza Type B (PCR) (Not Detectd) RSV (PCR) (Not Detectd) SARS-CoV-2 (PCR) (Not Detectd) 04/30/23 04/30/23 04/30/23 Range/Units 11:30 11:30 11:30 WBC (3.8-10.6) k/uL RBC (3.80-5.40) m/uL Hgb (11.4-16.0) gm/dL Hct (34.0-46.0) % MCV (80.0-100.0) fL MCH (25.0-35.0) pg MCHC (31.0-37.0) g/dL RDW (11.5-15.5) % MPV Hypochromasia Poikilocytosis Anisocytosis PT (9.0-12.0) sec INR (<1.2) APTT (22.0-30.0) sec D-Dimer (<0.60) mg/L FEU Sodium (137-145) mmol/L Potassium (3.5-5.1) mmol/L Chloride (98-107) mmol/L Carbon Dioxide (22-30) mmol/L Anion Gap mmol/L BUN (7-17) mg/dL Creatinine (0.52-1.04) mg/dL Est GFR (CKD-EPI)AfAm (>60 ml/min/1.73 sqM) Est GFR (CKD-EPI)NonAf (>60 ml/min/1.73 sqM) Glucose (74-99) mg/dL Plasma Lactic Acid Judd 1.1 (0.7-2.0) mmol/L Calcium (8.4-10.2) mg/dL Total Bilirubin (0.2-1.3) mg/dL AST (14-36) U/L ALT (4-34) U/L Alkaline Phosphatase (38-126) U/L Troponin I <0.012 (0.000-0.034) ng/mL Total Protein (6.3-8.2) g/dL Albumin (3.5-5.0) g/dL Influenza Type A (PCR) Not Detected (Not Detectd) Influenza Type B (PCR) Not Detected (Not Detectd) RSV (PCR) Not Detected (Not Detectd) SARS-CoV-2 (PCR) Not Detected (Not Detectd) Critical Care Time Critical Care Time: Yes Total Critical Care Time: 35 Disposition Clinical Impression: Community acquired pneumonia, COPD (chronic obstructive pulmonary disease), Acute respiratory distress syndrome in adult Disposition: ADMITTED IP TO THIS HOSP Condition: Stable Is patient prescribed a controlled substance at d/c from ED?: No Referrals: Erickson Li DO [Primary Care Provider] - 1-2 days Time of Disposition: 13:05
[2023-04-30 12:12] LABS: Partial Thromboplastin Time 23.6 sec (22.0-30.0); Prothrombin Time 10.4 sec (9.0-12.0)
[2023-04-30 12:14] LABS: ALT 18 U/L (4-34); AST 28 U/L (14-36); African American GFR (CKD) >90 (>60 ml/min/1.73 sqM); Alkaline Phosphatase 105 U/L (38-126); Anion Gap 2 mmol/L; Blood Urea Nitrogen 12 mg/dL (7-17); Calcium 9.7 mg/dL (8.4-10.2); Chloride 98 mmol/L (98-107); Glucose 104 mg/dL (74-99); Non-African American GFR(CKD) >90 (>60 ml/min/1.73 sqM); Potassium 4.3 mmol/L (3.5-5.1); Sodium 140 mmol/L (137-145); Total Bilirubin 0.8 mg/dL (0.2-1.3)
[2023-04-30 12:34] LABS: Carbon Dioxide 40 mmol/L (22-30)
[2023-04-30] MEDS ORDERED: ALBUTEROL NEBULIZED 2.5 MG/3 ML INHALATION STA (12:35)
[2023-04-30] MEDS ORDERED: methylPREDNISolone SOD SUCCI 125 MG/2 ML VIAL IV STA (12:35)
[2023-04-30] MEDS ORDERED: IPRATROPIUM-ALBUTEROL 3 ML NEB INHALATION STA (12:35)
--- NOTE | 2023-04-30 12:41 | XR ---
EXAMINATION TYPE: XR chest 1V portable DATE OF EXAM: 04/30/2023 Comparison: 12/06/2021 Clinical History: 53-year-old female difficulty breathing Findings: Heart mildly enlarged. Peripheral left basilar opacity. Medial right basilar opacity also present. Th adan densities appear increased from prior. Large patient body habitus limits the portable examination . Impression: 1. Mild cardiomegaly. 2. Patchy medial right basilar and left basilar opacities. These could reflect sequela of CHF. Correl ate to exclude pneumonia or aspiration.
[2023-04-30 12:46] LABS: Anisocytosis Slight; Basophils % (A) 0 %; Eosinophils # (A) 0.1 k/uL (0-0.7); Eosinophils % (A) 1 %; HCT 49.8 % (34.0-46.0); HGB 14.1 gm/dL (11.4-16.0); Hypochromasia Marked; Lymphocytes # (A) 0.7 k/uL (1.0-4.8); Lymphocytes % (A) 11 %; MCHC 28.3 g/dL (31.0-37.0); MCV 84.9 fL (80.0-100.0); Mean Platelet Volume 11.8; Monocytes # (A) 0.4 k/uL (0-1.0); Monocytes % (A) 6 %; Neutrophils # (A) 5.4 k/uL (1.3-7.7); Neutrophils % (A) 81 %; Platelet Count 149 k/uL (150-450); Poikilocytosis Slight; RBC 5.87 m/uL (3.80-5.40); RDW 16.6 % (11.5-15.5); WBC 6.7 k/uL (3.8-10.6)
[2023-04-30] MEDS ORDERED: AZITHROMYCIN 500 MG in SODIUM CHLORIDE 0.9% 250 ML IVPB STA (12:55)
[2023-04-30] MEDS ORDERED: IPRATROPIUM-ALBUTEROL 3 ML NEB INHALATION PRN (13:00)
[2023-04-30] MEDS ORDERED: NALOXONE 0.4 MG/ML 1 ML VIAL IVP PRN (13:00)
[2023-04-30 13:45] LABS: Large Platelets Present
[2023-04-30] MEDS: IPRATROPIUM-ALBUTEROL 3 ML NEB INHALATION SCH ×2 (16:19→21:39)
--- NOTE | 2023-04-30 17:16 | P.CNPUL ---
History of Present Illness Consult date: 04/30/23 Requesting physician: Erickson Li Reason for consult: dyspnea, COPD Chief complaint: Shortness of breath History of present illness: This is a pleasant 53-year-old female patient with a known history of morbid obesity, headaches, chronic back pain and chronic peripheral neuropathy, abnormal brain lesions, nondiagnostic for MS, hypertension, pulmonary hypertension, chronic tobacco dependence, history of vaping, obstructive sleep apnea maintained on CPAP at 13 cm of water, chronic obstructive pulmonary disease, oxygen dependent and maintained on Trelegy Ellipta. She was to be seen in our office today however when she arrived she was quite short of breath and hypoxemic with O2 saturations in the 60s and 70s and she was brought into the emergency room. Chest x-ray reveals mild cardiomegaly. Patchy medial right basilar and left basilar opacities. Suspect CHF versus aspiration pneumonia. White count 6.7. Hemoglobin 14.1. Platelets 149. D-dimer 0.94. Potassium sodium 140. Potassium 4.3. Bicarb 40. BUN 12. Creatinine 0.51. Glucose 104. ProBNP 311. Troponin negative 1. Influenza screen negative. RSV screen negative. COVID-19 screen negative. She is seen today in consultation on the selective care unit. She is currently resting in bed. She is on BiPAP 12/ on 40% FiO2. She is awake and alert in no acute distress. O2 saturations at 90% currently. She's been initiated and DuoNeb inhalations, IV Solu-Medrol. Review of Systems REVIEW OF SYSTEMS: CONSTITUTIONAL: Denies any recent significant weight loss or weight gain. EYES: Denies change in vision. EARS, NOSE, MOUTH, THROAT: Denies headaches, denies sore throat. CARDIOVASCULAR: Denies chest pain, palpitations or syncopal episodes. RESPIRATORY: Positive for shortness of breath, cough, congestion no hemoptysis. GASTROINTESTINAL: Denies change in appetite, denies abdominal pain GENITOURINARY: Denies hematuria, denies infections. MUSKULOSKELETAL: Denies pain, denies swelling. INTEGUMENTARY: Denies rash, denies eczema. NEUROLOGICAL: Denies recent memory loss, no recent seizure activity. PSYCHIATRIC: Denies anxiety, denies depression. HEMATOLOGIC/LYMPHATIC: Denies anemia, denies enlarged lymph nodes. Past Medical History Past Medical History: Asthma, COPD, CVA/TIA, Hyperlipidemia, Hypertension, Osteoarthritis (OA), Pneumonia, Sleep Apnea/CPAP/BIPAP, Thyroid Disorder Additional Past Medical History / Comment(s): RSD dx 2012 lesions on brain,"memory issues" possible MS no definitive dx as of yet, peripheral neuropathy-diogenes feet/legs arms, migraines, murmur, occular hypertension, probably stroke-no residual effects, "top part of heart beats slower that the bottom", no cpap used, uses oxygen all the time 2liters, anemia. no insurance coverage for synthroid. History of Any Multi-Drug Resistant Organisms: None Reported Past Surgical History: Appendectomy, Section, Cholecystectomy, Heart Catheterization, Orthopedic Surgery Additional Past Surgical History / Comment(s): diogenes carpal tunnel, left cubital tunnel, d&c, spinal puncture, rt knee surgery arthroscopic Past Anesthesia/Blood Transfusion Reactions: Motion Sickness Additional Past Anesthesia/Blood Transfusion Reaction / Comment(s): claustrophobia. "has had blood in past,-no reaction" Past Psychological History: Anxiety, Depression Smoking Status: Current every day smoker Past Alcohol Use History: None Reported Past Drug Use History: None Reported - Past Family History Father Family Medical History: Cancer Brother(s) Family Medical History: Diabetes Mellitus Mother Family Medical History: No Reported History Medications and Allergies Home Medications Medication Instructions Recorded Confirmed Type Butalb/APAP/Caff 50-325-40Mg 1 tab PO Q8HR PRN 05/22/17 04/30/23 History [Fioricet 50-325-40] DULoxetine HCL [Cymbalta] 60 mg PO HS 05/22/17 04/30/23 History Aspirin EC [Ecotrin Low Dose] 81 mg PO DAILY 06/06/18 04/30/23 History Loratadine [Claritin] 10 mg PO DAILY 06/06/18 04/30/23 History HYDROcodone/APAP 10-325MG [[place] 1 tab PO TID PRN 08/18/19 04/30/23 History 10-325] ARIPiprazole [Abilify] 5 mg PO HS 04/27/20 04/30/23 History Atorvastatin [Lipitor] 20 mg PO HS 04/27/20 04/30/23 History Metoprolol Tartrate [Lopressor] 12.5 mg PO HS 04/27/20 04/30/23 History Venlafaxine HCl ER [Effexor XR] 37.5 mg PO DAILY 04/27/20 04/30/23 History Ferrous Sulfate [Iron (65 MG 325 mg PO BID 04/21/21 04/30/23 History Elemental)] Potassium Chloride [Potassium 10 meq PO DAILY 04/21/21 04/30/23 History Chloride ER] rOPINIRole HCL [Requip] 1 mg PO HS 04/21/21 04/30/23 History tiZANidine [Zanaflex] 4 mg PO BID PRN 04/21/21 04/30/23 History Albuterol Sulfate [Albuterol 2 puff PO RT-Q4H PRN 05/29/21 04/30/23 History Sulfate Hfa] Fluticasone/Umeclidin/Vilanter 1 puff INHALATION RT-DAILY 12/05/21 04/30/23 History [Trelegy Ellipta 100-62.5-25] Furosemide [Lasix] 40 mg PO DAILY 12/05/21 04/30/23 History Ibuprofen [Motrin] 800 mg PO Q8H PRN 12/05/21 04/30/23 History Rizatriptan Benzoate [Rizatriptan] 10 mg PO DAILY PRN 12/05/21 04/30/23 History metOLazone [Zaroxolyn] 5 mg PO DAILY 12/05/21 04/30/23 History Topiramate [Topamax] 50 mg PO BID 04/25/22 04/30/23 History Verapamil HCl [Verapamil ER] 180 mg PO DAILY 04/25/22 04/30/23 History ALPRAZolam [Xanax] 0.25 mg PO HS PRN 04/30/23 04/30/23 History DULoxetine HCL [Cymbalta] 30 mg PO HS 04/30/23 04/30/23 History Exemestane [Aromasin] 25 mg PO DAILY 04/30/23 04/30/23 History Ondansetron [Zofran] 4 mg PO Q8HR PRN 04/30/23 04/30/23 History Phentermine HCl [Adipex-P] 37.5 mg PO DAILY 04/30/23 04/30/23 History Zolpidem [Ambien] 10 mg PO HS PRN 04/30/23 04/30/23 History amLODIPine BESYLATE/BENAZEPRIL 1 cap PO DAILY 04/30/23 04/30/23 History [amLODIPine BESYLATE/BENAZEPRIL 5-20 mg] Allergies Allergy/AdvReac Type Severity Reaction Status Date / Time morphine Allergy Itching/hiv Verified 04/30/23 13:13 es/sob peach Allergy Rash/Hives Verified 04/30/23 13:13 pear Allergy Unknown Verified 04/30/23 13:13 Sulfa (Sulfonamide Allergy RAPID Verified 04/30/23 13:13 Antibiotics) HEART RATE AND HIVES Physical Exam Vitals: Vital Signs Temp Pulse Resp BP Pulse Ox FiO2 04/30/23 16:34 76 04/30/23 16:21 72 40 04/30/23 14:00 75 18 143/85 90 L 04/30/23 13:06 72 04/30/23 12:57 72 14 168/94 99 04/30/23 12:47 68 40 04/30/23 11:32 69 18 147/86 94 L 04/30/23 11:29 40 04/30/23 11:15 40 04/30/23 11:00 98.2 F 87 26 H 161/89 68 L Intake and Output 04/30/23 04/30/23 04/30/23 06:59 14:59 22:59 Other: Weight 136.078 kg GENERAL EXAM: Alert, pleasant morbidly obese 53-year-old female, on BiPAP 12/5 and 40% FiO2, fairly comfortable in no apparent distress. HEAD: Normocephalic. EYES: Normal reaction of pupils, equal size. NOSE: Clear with pink turbinates. THROAT: No erythema or exudates. NECK: No masses, no JVD. CHEST: No chest wall deformity. LUNGS: Equal air entry with bilateral end expiratory wheeze, diminished. CVS: S1 and S2 normal with no audible murmur, regular rhythm. ABDOMEN: No hepatosplenomegaly, normal bowel sounds, no guarding or rigidity. SPINE: No scoliosis or deformity SKIN: No rashes CENTRAL NERVOUS SYSTEM: No focal deficits, tone is normal in all 4 extremities. EXTREMITIES: There is trace peripheral edema. No clubbing, no cyanosis. Peripheral pulses are intact. Results - Laboratory Findings CBC and BMP: 04/30/23 11:30 04/30/23 11:30 PT/INR, D-dimer PT 10.4 sec (9.0-12.0) 04/30/23 11:30 INR 1.0 (<1.2) 04/30/23 11:30 D-Dimer 0.94 mg/L FEU (<0.60) H 04/30/23 11:30 Abnormal lab findings: Abnormal Labs 04/30/23 04/30/23 04/30/23 11:30 11:30 11:30 RBC 5.87 H Hct 49.8 H MCH 24.0 L MCHC 28.3 L RDW 16.6 H Plt Count 149 L Lymphocytes # 0.7 L D-Dimer 0.94 H Carbon Dioxide 40 H Creatinine 0.51 L Glucose 104 H - Diagnostic Findings Chest x-ray: image reviewed Assessment and Plan Assessment: Acute on chronic hypoxemic respiratory failure secondary to an acute exacerbation of chronic obstructive pulmonary disease and possible acute exacerbation of diastolic congestive heart failure Severe chronic obstructive pulmonary disease, oxygen dependent Chronic tobacco dependence History of vaping Obstructive sleep apnea maintained on CPAP at 13 cm of water Morbid obesity with BMI of 53 kg/m History of pulmonary hypertension Hypertension Hyperlipidemia Hypothyroidism History of anxiety/depression Chronic pain syndrome Plan: The patient was seen and evaluated Chest x-ray, labs and medications reviewed We will order a CT angiogram to rule out pulmonary embolism Continue BiPAP support for now Transition to nasal cannula as tolerated Obtain a pro-calcitonin Continue DuoNeb inhalations, IV Solu-Medrol Add Symbicort Titrate the FiO2 as tolerated Continue her home diuretics Educated regarding the importance of complete smoking/vaping cessation We will continue to follow and make further recommendations based on her clinical status I have personally seen and examined the patient, performed the documentation and the assessment and plan as written. Number of minutes spent on the visit: 20.
--- NOTE | 2023-04-30 17:58 | CT ---
EXAMINATION TYPE: CT angio chest CT DLP: 949.2 mGycm, Automated exposure control for dose reduction was used. DATE OF EXAM: 04/30/2023 5:47 PM COMPARISON: 12/05/2021 CLINICAL INDICATION:Female, 53 years old with history of Hypoxemia, elevated d dimer; Hypoxemia, elev ated d dimer TECHNIQUE/CONTRAST: CTA scan of the thorax is performed with IV Contrast, patient injected with 75ML mL of Isovue 370, pu lmonary embolism protocol. MIP images are created and reviewed these are created on a separate works tation.. FINDINGS: Motion artifact limits evaluation. Pulmonary Artery: There is no evidence for a central filling defect within the pulmonary vasculature to suggest acute pulmonary embolism. Limited evaluation of the segmental and subsegmental branches se condary to bolus timing. The pulmonary artery is of normal size. Lungs/Pleura: Trace bilateral pleural effusion. Thickening of interlobular septa. No focal consolidat ion or pneumothorax. There is streaky atelectasis scattered throughout the lungs likely secondary to low lung volumes. Airway: Large airways are patent. Heart: The heart is enlarged for size. Coronary artery cusp patient's are present. Vasculature: No evidence of aortic aneurysm. Mediastinum: No gross evidence of adenopathy. Musculoskeletal: No acute osseous abnormalities Soft Tissues: Unremarkable. Lower neck: No significant findings. Upper Abdomen: No significant findings. IMPRESSION: 1. No evidence of central pulmonary embolism. Limited evaluation of the segmental and subsegmental br anches. 2. Cardiomegaly with pulmonary vascular congestion small bilateral pleural effusions correlate for co ngestive heart failure.
[2023-04-30] MEDS: methylPREDNISolone SOD SUCCI 125 MG/2 ML VIAL IV SCH (18:19)
[2023-04-30] MEDS: SYMBICORT 160-4.5 MCG INHALER INHALATION SCH (21:39)
[2023-04-30] MEDS ORDERED: ONDANSETRON 4 MG TAB PO PRN (23:54)
[2023-04-30] MEDS ORDERED: ALBUTEROL NEBULIZED 2.5 MG/3 ML INHALATION PRN (23:54)
[2023-04-30] MEDS ORDERED: IBUPROFEN 800 MG TAB PO PRN (23:54)
[2023-04-30] MEDS ORDERED: ZOLPIDEM 5 MG TAB PO PRN (23:54)
[2023-04-30] MEDS ORDERED: SUMAtriptan succinate 50 MG TAB PO PRN (23:54)
[2023-04-30] MEDS ORDERED: BUTALB/APAP/CAFF 50-325-40MG TAB PO PRN (23:54)
[2023-04-30] MEDS ORDERED: ALPRAZolam 0.25 MG TAB PO PRN (23:54)
[2023-04-30] MEDS ORDERED: tiZANidine 4 MG TAB PO PRN (23:54)
[2023-05-01 00:39] LABS: VBG PH 7.31 (7.31-7.41)
[2023-05-01] MEDS: methylPREDNISolone SOD SUCCI 125 MG/2 ML VIAL IV SCH ×5 (00:45→23:37)
[2023-05-01] MEDS: HYDROcodone/APAP 10-325MG 1 EACH TAB PO PRN ×2 (00:46→20:26)
[2023-05-01 06:29] LABS: Glucose,Whole Blood 145 mg/dL (70-110)
[2023-05-01] MEDS ORDERED: NON FORMULARY DRUG (Fluticasone/Umeclidin/Vilanter [Trelegy Ellipta 100-62.5-25] 1 EACH Bl INHALATION SCH (08:00)
[2023-05-01] MEDS: IPRATROPIUM-ALBUTEROL 3 ML NEB INHALATION SCH ×4 (08:56→21:29)
[2023-05-01] MEDS: SYMBICORT 160-4.5 MCG INHALER INHALATION SCH ×2 (08:56→21:28)
[2023-05-01] MEDS: POTASSIUM CHLORIDE ER 10 MEQ TAB.ER.PRT PO SCH (09:38)
[2023-05-01] MEDS: VERAPAMIL SR 180 MG TABLET.ER PO SCH (09:38)
[2023-05-01] MEDS: FUROSEMIDE 40 MG TAB PO SCH (09:38)
[2023-05-01] MEDS: LORATADINE 10 MG TAB PO SCH (09:38)
[2023-05-01] MEDS: metOLazone 5 MG TAB PO SCH (09:38)
[2023-05-01] MEDS: ASPIRIN 81 MG PO SCH (09:38)
[2023-05-01] MEDS: FERROUS SULFATE 325 MG TAB PO SCH ×2 (09:39→20:23)
[2023-05-01] MEDS: lisinopriL 20 MG TAB PO SCH (09:39)
[2023-05-01] MEDS: VENLAFAXINE HCL ER 37.5 MG CAP PO SCH (09:39)
[2023-05-01] MEDS: amLODIPine 5 MG TAB PO SCH (09:39)
[2023-05-01] MEDS: TOPIRAMATE 25 MG TAB PO SCH ×2 (09:44→20:23)
[2023-05-01] MEDS: NON FORMULARY DRUG (Exemestane [Aromasin] 25 MG Tablet) PO SCH (09:45)
[2023-05-01 12:02] LABS: Glucose,Whole Blood 196 mg/dL (70-110)
--- NOTE | 2023-05-01 12:29 | P.HPIM ---
History of Present Illness H&P Date: 05/01/23 Chief Complaint: Dyspnea, hypoxia This a 53-year-old female with history of COPD, migraines, hypertension, osteoarthritis, sleep apnea, morbid obesity, anxiety, depression, nicotine dependence and multiple other medical issues, initially presented to PCP approximately 2 weeks ago for worsening shortness of breath, received and completed antibiotic and steroid treatment with mild improvement. Shortness of breath worsened, followed up at pulmonary's office yesterday. Discovered to be significantly hypoxic with O2 sats in the 60s and 70s and patient was transported to the ER. On admission, O2 sat 68% on room air, chest x-ray reported mild cardiomegaly, patchy medial right basilar and left basilar opacity is possibly reflecting CHF, pneumonia or aspiration. Placed on BiPAP, nebulized bronchodilators and IV steroids initiated. Afebrile, normal WBC, hemoglobin 14.1, platelets 149, d-dimer mildly elevated ,0.94, venous blood gases reported pH 7.31, pCO2 73, HCO3 36. Electrolytes within normal limits, bicarbonate 30, BUN 12, creatinine 0.51, blood sugars controlled, lactic acid 1.1, troponin negative 1. Influenza type A and B, RSV and Covid not detected. Currently off of BiPAP, wearing 10 L high flow nasal cannula while eating breakfast. Review of Systems ROS Statement: Those systems with pertinent positive or pertinent negative responses have been documented in the HPI. ROS Other: All systems not noted in ROS Statement are negative. Past Medical History Past Medical History: Asthma, COPD, CVA/TIA, Hyperlipidemia, Hypertension, Osteoarthritis (OA), Pneumonia, Sleep Apnea/CPAP/BIPAP, Thyroid Disorder Additional Past Medical History / Comment(s): RSD dx 2013 lesions on brain,"memory issues" possible MS no definitive dx as of yet, peripheral neuropathy-diogenes feet/legs arms, migraines, murmur, occular hypertension, probably stroke-no residual effects, "top part of heart beats slower that the bottom", no cpap used, uses oxygen all the time 2liters, anemia. no insurance coverage for synthroid. History of Any Multi-Drug Resistant Organisms: None Reported Past Surgical History: Appendectomy, Section, Cholecystectomy, Heart Catheterization, Orthopedic Surgery Additional Past Surgical History / Comment(s): diogenes carpal tunnel, left cubital tunnel, d&c, spinal puncture, rt knee surgery arthroscopic Past Anesthesia/Blood Transfusion Reactions: Motion Sickness Additional Past Anesthesia/Blood Transfusion Reaction / Comment(s): claustrophobia. "has had blood in past,-no reaction" Smoking Status: Current every day smoker - Past Family History Father Family Medical History: Cancer Brother(s) Family Medical History: Diabetes Mellitus Mother Family Medical History: No Reported History Medications and Allergies Home Medications Medication Instructions Recorded Confirmed Type Butalb/APAP/Caff 50-325-40Mg 1 tab PO Q8HR PRN 05/22/17 04/30/23 History [Fioricet 50-325-40] DULoxetine HCL [Cymbalta] 60 mg PO HS 05/22/17 04/30/23 History Aspirin EC [Ecotrin Low Dose] 81 mg PO DAILY 06/06/18 04/30/23 History Loratadine [Claritin] 10 mg PO DAILY 06/06/18 04/30/23 History HYDROcodone/APAP 10-325MG [[place] 1 tab PO TID PRN 08/18/19 04/30/23 History 10-325] ARIPiprazole [Abilify] 5 mg PO HS 04/27/20 04/30/23 History Atorvastatin [Lipitor] 20 mg PO HS 04/27/20 04/30/23 History Metoprolol Tartrate [Lopressor] 12.5 mg PO HS 04/27/20 04/30/23 History Venlafaxine HCl ER [Effexor XR] 37.5 mg PO DAILY 04/27/20 04/30/23 History Ferrous Sulfate [Iron (65 MG 325 mg PO BID 04/21/21 04/30/23 History Elemental)] Potassium Chloride [Potassium 10 meq PO DAILY 04/21/21 04/30/23 History Chloride ER] rOPINIRole HCL [Requip] 1 mg PO HS 04/21/21 04/30/23 History tiZANidine [Zanaflex] 4 mg PO BID PRN 04/21/21 04/30/23 History Albuterol Sulfate [Albuterol 2 puff PO RT-Q4H PRN 05/29/21 04/30/23 History Sulfate Hfa] Fluticasone/Umeclidin/Vilanter 1 puff INHALATION RT-DAILY 12/05/21 04/30/23 History [Trelegy Ellipta 100-62.5-25] Furosemide [Lasix] 40 mg PO DAILY 12/05/21 04/30/23 History Ibuprofen [Motrin] 800 mg PO Q8H PRN 12/05/21 04/30/23 History Rizatriptan Benzoate [Rizatriptan] 10 mg PO DAILY PRN 12/05/21 04/30/23 History metOLazone [Zaroxolyn] 5 mg PO DAILY 12/05/21 04/30/23 History Topiramate [Topamax] 50 mg PO BID 04/25/22 04/30/23 History Verapamil HCl [Verapamil ER] 180 mg PO DAILY 04/25/22 04/30/23 History ALPRAZolam [Xanax] 0.25 mg PO HS PRN 04/30/23 04/30/23 History DULoxetine HCL [Cymbalta] 30 mg PO HS 04/30/23 04/30/23 History Exemestane [Aromasin] 25 mg PO DAILY 04/30/23 04/30/23 History Ondansetron [Zofran] 4 mg PO Q8HR PRN 04/30/23 04/30/23 History Phentermine HCl [Adipex-P] 37.5 mg PO DAILY 04/30/23 04/30/23 History Zolpidem [Ambien] 10 mg PO HS PRN 04/30/23 04/30/23 History amLODIPine BESYLATE/BENAZEPRIL 1 cap PO DAILY 04/30/23 04/30/23 History [amLODIPine BESYLATE/BENAZEPRIL 5-20 mg] Allergies Allergy/AdvReac Type Severity Reaction Status Date / Time morphine Allergy Itching/hiv Verified 04/30/23 13:13 es/sob peach Allergy Rash/Hives Verified 04/30/23 13:13 pear Allergy Unknown Verified 04/30/23 13:13 Sulfa (Sulfonamide Allergy RAPID Verified 04/30/23 13:13 Antibiotics) HEART RATE AND HIVES Physical Exam Vitals: Vital Signs Temp Pulse Pulse Resp BP BP Pulse Ox 05/01/23 09:14 76 05/01/23 08:57 76 05/01/23 08:00 97.7 F 72 16 151/82 93 L 05/01/23 04:00 97.6 F 54 L 16 125/65 93 L 05/01/23 03:57 06/07/23 00:01 05/01/23 00:00 98.2 F 84 16 182/81 96 04/30/23 21:50 76 04/30/23 21:41 76 04/30/23 20:00 98.0 F 88 15 152/84 93 L 04/30/23 16:34 76 04/30/23 16:21 72 04/30/23 16:10 98.1 F 93 18 140/86 04/30/23 14:00 75 18 143/85 90 L 04/30/23 13:06 72 04/30/23 12:57 72 14 168/94 99 04/30/23 12:47 68 04/30/23 11:32 69 18 147/86 94 L 04/30/23 11:29 04/30/23 11:15 FiO2 05/01/23 09:14 05/01/23 08:57 40 05/01/23 08:00 40 05/01/23 04:00 40 05/01/23 03:57 40 05/01/23 00:01 40 05/01/23 00:00 40 04/30/23 21:50 04/30/23 21:41 40 04/30/23 20:00 40 04/30/23 16:34 04/30/23 16:21 40 04/30/23 16:10 40 04/30/23 14:00 04/30/23 13:06 04/30/23 12:57 04/30/23 12:47 40 04/30/23 11:32 04/30/23 11:29 40 04/30/23 11:15 40 Intake and Output 04/30/23 05/01/23 05/01/23 22:59 06:59 14:59 Intake Total 540 Output Total 425 Balance -425 540 Intake: Oral 540 Output: Urine 425 Other: Voiding Method Bedside Commode Bedside Commode # Bowel Movements 1 Weight 136.078 kg - Exam PHYSICAL EXAM: VITAL SIGNS: As above GENERAL: Alert and oriented 3, Sitting up at side of bed, no acute distress HEENT: Normocephalic, atraumatic ,Conjunctivae normal. eyes normal. Oral mucosa moist NECK: Supple, No JVD. CARDIOVASCULAR: S1, S2 regular.No murmur RESPIRATION: Breath sounds diminished in the bases, bilateral expiratory wheezing ABDOMEN: Soft, nontender,obese, nondistended ,positive Bowel sounds. LEGS: No edema, no calf tenderness, positive DP pulses. NERVOUS SYSTEM: Cranial N 2-12 grossly normal. Moves all 4 limbs.No focal deficits. Strength and sensation grossly intact. Skin: Warm and dry, no rash Results CBC & Chem 7: 04/30/23 11:30 04/30/23 11:30 Labs: Abnormal Lab Results - Last 24 Hours (Table) 04/30/23 04/30/23 04/30/23 Range/Units 11:30 11:30 11:30 RBC 5.87 H (3.80-5.40) m/uL Hct 49.8 H (34.0-46.0) % MCH 24.0 L (25.0-35.0) pg MCHC 28.3 L (31.0-37.0) g/dL RDW 16.6 H (11.5-15.5) % Plt Count 149 L (150-450) k/uL Lymphocytes # 0.7 L (1.0-4.8) k/uL D-Dimer 0.94 H (<0.60) mg/L FEU VBG pCO2 (37-51) mmHg VBG HCO3 (24-28) mmol/L Carbon Dioxide 40 H (22-30) mmol/L Creatinine 0.51 L (0.52-1.04) mg/dL Glucose 104 H (74-99) mg/dL POC Glucose (mg/dL) (70-110) mg/dL 04/30/23 05/01/23 Range/Units 23:59 06:20 RBC (3.80-5.40) m/uL Hct (34.0-46.0) % MCH (25.0-35.0) pg MCHC (31.0-37.0) g/dL RDW (11.5-15.5) % Plt Count (150-450) k/uL Lymphocytes # (1.0-4.8) k/uL D-Dimer (<0.60) mg/L FEU VBG pCO2 73 H* (37-51) mmHg VBG HCO3 36 H (24-28) mmol/L Carbon Dioxide (22-30) mmol/L Creatinine (0.52-1.04) mg/dL Glucose (74-99) mg/dL POC Glucose (mg/dL) 145 H (70-110) mg/dL Thrombosis Risk Factor Assmnt - Choose All That Apply Any of the Below Risk Factors Present?: Yes Each Factor Represents 1 point: Age 41-60 years, Obesity (BMI >25) Other Risk Factors: No Other congenital or acquired thrombophilia - If yes, enter type in comment: No Thrombosis Risk Factor Assessment Total Risk Factor Score: 2 Thrombosis Risk Factor Assessment Level: Low Risk Assessment and Plan Assessment: Acute COPD exacerbation, possible acute CHF exacerbation, diastolic dysfunction Acute on chronic hypoxic respiratory failure, wears 3 L nasal cannula at home, maintained on Bipap Alpha-1 antitrypsin deficiency, history of Obstructive sleep apnea, maintained on CPAP History of pulmonary hypertension Ongoing nicotine dependence, marijuana edibles, and history of vaping Hypertension Hyperlipidemia Osteoarthritis Morbid obesity, BMI 53 Anxiety Depression Chronic peripheral neuropathy Chronic back pain History of Migraines, chronic Plan: Continue on current medication regime ,monitoring and symptomatic treatment. Bipap.pro-calcitonin pending. Chest CTA pending. Aggressive pulmonary toileting with nebulized bronchodilators, IV steroids, nebulized bronchodilators, diuretics. Pulmonary recommendations noted and appreciated. Smoking/vaping cessation reinforced. The impression and plan of care has been dictated as directed. : I performed a history and examination of this patient, discussed the same with the dictator. I agree with the dictator's note ,documented as a scribe. Any additional findings or plans will be noted.
--- NOTE | 2023-05-01 15:36 | P.PN ---
Subjective Progress Note Date: 05/01/23 Principal diagnosis: Acute exacerbation of COPD with acute on chronic hypoxic respiratory failure possible acute diastolic congestive heart failure This is a pleasant 53-year-old female patient with a known history of morbid obesity, headaches, chronic back pain and chronic peripheral neuropathy, abnormal brain lesions, nondiagnostic for MS, hypertension, pulmonary hypertension, chronic tobacco dependence, history of vaping, obstructive sleep apnea maintained on CPAP at 13 cm of water, chronic obstructive pulmonary disease, oxygen dependent and maintained on Trelegy Ellipta. She was to be seen in our office today however when she arrived she was quite short of breath and hypoxemic with O2 saturations in the 60s and 70s and she was brought into the emergency room. Chest x-ray reveals mild cardiomegaly. Patchy medial right basilar and left basilar opacities. Suspect CHF versus aspiration pneumonia. White count 6.7. Hemoglobin 14.1. Platelets 149. D-dimer 0.94. Potassium sodium 140. Potassium 4.3. Bicarb 40. BUN 12. Creatinine 0.51. Glucose 104. ProBNP 311. Troponin negative 1. Influenza screen negative. RSV screen negative. COVID-19 screen negative. She is seen today in consultation on the selective care unit. She is currently resting in bed. She is on BiPAP 10/29 on 40% FiO2. She is awake and alert in no acute distress. O2 saturations at 90% currently. She's been initiated and DuoNeb inhalations, IV Solu-Medrol. Reevaluated today on 05/01/2023, patient is feeling better, she is however on BiPAP. 10/29/40%, patient had negative CT angiogram of the chest, no evidence of pulmonary embolism. Looking at her venous blood gas, patient had a pCO2 of 73 which implies that the patient also has underlying chronic hypercapnic respiratory failure with good metabolic compensation. Her bicarb on the electrolytes is 40 which means the patient does have chronic hypercapnia. I believe the patient will definitely benefit from BiPAP. She does have her own CPAP at home. But doubt compliance with the CPAP. Patient is maximized on treatment including bronchodilators and steroids, patient is also on Lasix 40 mg daily. Patient is also on Zaroxolyn and multiple cardiac meds Objective - Vital Signs Vital signs: Vital Signs Temp 97.8 F 05/01/23 12:00 Pulse 60 05/01/23 13:31 Resp 16 06/07/23 12:00 BP 140/81 05/01/23 12:00 Pulse Ox 94 L 05/01/23 12:00 FiO2 40 05/01/23 13:18 Intake & Output 04/30/23 05/01/23 05/01/23 18:59 06:59 18:59 Intake Total 1080 Output Total 425 Balance -425 1080 Weight 136.078 kg Intake: Oral 1080 Output: Urine 425 Other: Voiding Method Bedside Commode # Bowel Movements 1 - Exam Physical Exam revealed 53-year-old female obese, on BiPAP. Not in distress. Head: Atraumatic, normocephalic. HEENT:[Neck is supple.] [No neck masses.] [No thyromegaly.] [No JVD.] Chest: [Diminished breath sound bilaterally no rhonchi no wheezes no crackles noted. Cardiac Exam: [Normal S1 and S2, no S3 gallop, no murmur.] Abdomen: [Soft, nontender, no megaly, no rebound, no guarding, normal bowel sounds.] Extremities: [No clubbing, trace of bipedal edema, no cyanosis.] Neurological Exam: [No focal neurologic deficit.] Alert and oriented 3. Psychiatric: Normal mood, affect and normal mental status examination. - Labs CBC & Chem 7: 04/30/23 11:30 04/30/23 11:30 Labs: Abnormal Lab Results - Last 24 Hours (Table) 04/30/23 05/01/23 05/01/23 Range/Units 23:59 06:20 12:00 VBG pCO2 73 H* (37-51) mmHg VBG HCO3 36 H (24-28) mmol/L POC Glucose (mg/dL) 145 H 196 H (70-110) mg/dL Assessment and Plan Assessment: Impression: Acute on chronic hypoxic and hypercapnic respiratory failure secondary to acute exacerbation of COPD Possible acute diastolic congestive heart failure Acute exacerbation of COPD Chronic tobacco dependence History of vaping Pulmonary hypertension Morbid obesity with BMI of 53 Obesity/hypoventilation syndrome Benign essential hypertension Generalized anxiety disorder Chronic pain syndrome Recommendation: Continue bronchodilators Continue steroids Continue diuretics Continue BiPAP and titrate FiO2 accordingly Counseled regarding smoking cessation. Patient has normally FEV1 of 37% Consider discharge planning in the next [address] angiogram of the chest showed no evidence of pulmonary embolism patient did have elevated d-dimer on admission. We will continue to follow. Time with Patient: Less than 30
[2023-05-01 17:00] LABS: Glucose,Whole Blood 113 mg/dL (70-110)
[2023-05-01] MEDS: INSULIN ASPART (NovoLOG) 100 UNIT/ML VIAL SQ SCH (20:18)
[2023-05-01] MEDS ORDERED: ATORVASTATIN 20 MG TAB PO SCH (21:00)
[2023-05-01] MEDS ORDERED: ARIPiprazole 5 MG TAB PO SCH (21:00)
[2023-05-01] MEDS ORDERED: DULoxetine HCL 30 MG CAPSULE.DR PO SCH (21:00)
[2023-05-01] MEDS ORDERED: METOPROLOL TARTRATE 12.5 MG TAB PO SCH (21:00)
[2023-05-01 21:20] LABS: Glucose,Whole Blood 225 mg/dL (70-110)
[2023-05-02 06:12] LABS: Glucose,Whole Blood 148 mg/dL (70-110)
[2023-05-02] MEDS: INSULIN ASPART (NovoLOG) 100 UNIT/ML VIAL SQ SCH ×2 (06:13→12:01)
[2023-05-02] MEDS: methylPREDNISolone SOD SUCCI 125 MG/2 ML VIAL IV SCH ×2 (06:36→12:02)
[2023-05-02] MEDS: metOLazone 5 MG TAB PO SCH (08:52)
[2023-05-02] MEDS: lisinopriL 20 MG TAB PO SCH (08:52)
[2023-05-02] MEDS: VENLAFAXINE HCL ER 37.5 MG CAP PO SCH (08:52)
[2023-05-02] MEDS: FUROSEMIDE 40 MG TAB PO SCH (08:52)
[2023-05-02] MEDS: TOPIRAMATE 25 MG TAB PO SCH (08:52)
[2023-05-02] MEDS: LORATADINE 10 MG TAB PO SCH (08:52)
[2023-05-02] MEDS: FERROUS SULFATE 325 MG TAB PO SCH (08:52)
[2023-05-02] MEDS: ASPIRIN 81 MG PO SCH (08:52)
[2023-05-02] MEDS: VERAPAMIL SR 180 MG TABLET.ER PO SCH (08:52)
[2023-05-02] MEDS: amLODIPine 5 MG TAB PO SCH (08:52)
[2023-05-02] MEDS: POTASSIUM CHLORIDE ER 10 MEQ TAB.ER.PRT PO SCH (08:53)
[2023-05-02] MEDS: SYMBICORT 160-4.5 MCG INHALER INHALATION SCH (09:06)
[2023-05-02] MEDS: IPRATROPIUM-ALBUTEROL 3 ML NEB INHALATION SCH ×3 (09:06→15:58)
[2023-05-02 09:57] LABS: Anisocytosis Slight; Basophils % (A) 0 %; Eosinophils # (A) 0.1 k/uL (0-0.7); Eosinophils % (A) 1 %; HCT 50.2 % (34.0-46.0); HGB 14.8 gm/dL (11.4-16.0); Hypochromasia Marked; Lymphocytes # (A) 0.6 k/uL (1.0-4.8); Lymphocytes % (A) 6 %; MCHC 29.4 g/dL (31.0-37.0); MCV 84.8 fL (80.0-100.0); Mean Platelet Volume 10.5; Monocytes # (A) 0.5 k/uL (0-1.0); Monocytes % (A) 5 %; Neutrophils # (A) 9.9 k/uL (1.3-7.7); Neutrophils % (A) 89 %; Platelet Count 228 k/uL (150-450); RBC 5.91 m/uL (3.80-5.40); RDW 16.8 % (11.5-15.5); WBC 11.2 k/uL (3.8-10.6)
[2023-05-02 10:14] LABS: ALT 19 U/L (4-34); AST 23 U/L (14-36); African American GFR (CKD) >90 (>60 ml/min/1.73 sqM); Albumin 3.9 g/dL (3.5-5.0); Alkaline Phosphatase 84 U/L (38-126); Blood Urea Nitrogen 21 mg/dL (7-17); Calcium 10.2 mg/dL (8.4-10.2); Chloride 93 mmol/L (98-107); Glucose 174 mg/dL (74-99); Non-African American GFR(CKD) >90 (>60 ml/min/1.73 sqM); Potassium 4.7 mmol/L (3.5-5.1); Sodium 139 mmol/L (137-145); Total Bilirubin 0.4 mg/dL (0.2-1.3); Total Protein 6.8 g/dL (6.3-8.2)
[2023-05-02 10:21] LABS: Anion Gap 8 mmol/L; Carbon Dioxide 38 mmol/L (22-30)
[2023-05-02] MEDS: NON FORMULARY DRUG (Exemestane [Aromasin] 25 MG Tablet) PO SCH (10:50)
[2023-05-02 11:54] LABS: Glucose,Whole Blood 152 mg/dL (70-110)
[2023-05-02 12:02] LABS: Large Platelets Present
[2023-05-02 12:25] VITALS: BP 135/75; RESP 17; TEMP 98
[2023-05-02 12:49] VITALS: PULSE 73
--- NOTE | 2023-05-02 12:59 | P.DS ---
Providers Date of admission: 04/30/23 13:00 Expected date of discharge: 05/02/23 Attending physician: Erickson Li Consults: 04/30/23 16:21 Consult Physician Routine Consulting Provider: Valentin Coles Consult Reason/Comments: hypoxia, COPD, Pneumonia Do you want consulting provider notified?: Yes Primary care physician: Erickson Li [facility] Course: Final Diagnoses: Acute COPD exacerbation, possible acute CHF exacerbation, diastolic dysfunction Acute on chronic hypoxic respiratory failure, wears 3 L nasal cannula at home, status post Bipap. Alpha-1 antitrypsin deficiency, history of Obstructive sleep apnea, maintained on CPAP History of pulmonary hypertension Ongoing nicotine dependence, marijuana edibles, and history of vaping Hypertension Hyperlipidemia Osteoarthritis Morbid obesity, BMI 53 Anxiety Depression Chronic peripheral neuropathy Chronic back pain History of Migraines, chronic Hospital course:This a 53-year-old female with history of COPD, migraines, hypertension, osteoarthritis, sleep apnea, morbid obesity, anxiety, depression, nicotine dependence and multiple other medical issues, initially presented to PCP approximately 2 weeks ago for worsening shortness of breath, received and completed antibiotic and steroid treatment with mild improvement. Shortness of breath worsened, followed up at pulmonary's office yesterday. Discovered to be significantly hypoxic with O2 sats in the 60s and 70s and patient was transported to the ER. On admission, O2 sat 68% on room air, chest x-ray reported mild cardiomegaly, patchy medial right basilar and left basilar opacity is possibly reflecting CHF, pneumonia or aspiration. Placed on BiPAP, nebulized bronchodilators and IV steroids initiated. Afebrile, normal WBC, hemoglobin 14.1, platelets 149, d-dimer mildly elevated ,0.94, venous blood gases reported pH 7.31, pCO2 73, HCO3 36. Electrolytes within normal limits, bicarbonate 30, BUN 12, creatinine 0.51, blood sugars controlled, lactic acid 1.1, troponin negative 1. Influenza type A and B, RSV and Covid not detected. Currently off of BiPAP, wearing 10 L high flow nasal cannula while eating breakfast. Significant clinical improvement. Maintaining O2 sats in the 90s on 3 L nasal cannula (baseline), carbon dioxide trending down, 38. Afebrile. Denies chest pain, palpitations or increasing shortness of breath. Patient will be discharged home today in a stable condition with guarded prognosis pending final DC recommendations and clearance per pulmonary. The impression and plan of care has been dictated as directed. : I performed a history and examination of this patient, discussed the same with the dictator. I agree with the dictator's note ,documented as a scribe. Any additional findings or plans will be noted. Patient Condition at Discharge: Stable Plan - Discharge Summary Discharge Rx Participant: Yes New Discharge Prescriptions: New predniSONE 10 mg PO DIRECTED #30 tab Budesonide-Formot 160-4.5 Mcg [Symbicort 160-4.5 Mcg Inhaler] 2 puff INHALATION RT-BID #1 inh Continue DULoxetine HCL [Cymbalta] 60 mg PO HS Butalb/APAP/Caff 50-325-40Mg [Fioricet 50-325-40] 1 tab PO Q8HR PRN PRN Reason: Migraine Headache Loratadine [Claritin] 10 mg PO DAILY Aspirin EC [Ecotrin Low Dose] 81 mg PO DAILY HYDROcodone/APAP 10-325MG [[place] 10-325] 1 tab PO TID PRN PRN Reason: Pain Venlafaxine HCl ER [Effexor XR] 37.5 mg PO DAILY Metoprolol Tartrate [Lopressor] 12.5 mg PO HS Atorvastatin [Lipitor] 20 mg PO HS ARIPiprazole [Abilify] 5 mg PO HS Potassium Chloride [Potassium Chloride ER] 10 meq PO DAILY Fluticasone/Umeclidin/Vilanter [Trelegy Ellipta 100-62.5-25] 1 puff INHALATION RT-DAILY Furosemide [Lasix] 40 mg PO DAILY Ibuprofen [Motrin] 800 mg PO Q8H PRN PRN Reason: Pain metOLazone [Zaroxolyn] 5 mg PO DAILY DULoxetine HCL [Cymbalta] 30 mg PO HS Exemestane [Aromasin] 25 mg PO DAILY Ondansetron [Zofran] 4 mg PO Q8HR PRN PRN Reason: Nausea Ferrous Sulfate [Iron (65 MG Elemental)] 325 mg PO BID rOPINIRole HCL [Requip] 1 mg PO HS tiZANidine [Zanaflex] 4 mg PO BID PRN PRN Reason: Muscle Spasm Albuterol Sulfate [Albuterol Sulfate Hfa] 2 puff PO RT-Q4H PRN PRN Reason: Shortness Of Breath Rizatriptan Benzoate [Rizatriptan] 10 mg PO DAILY PRN PRN Reason: Migraine Headache Verapamil HCl [Verapamil ER] 180 mg PO DAILY Topiramate [Topamax] 50 mg PO BID ALPRAZolam [Xanax] 0.25 mg PO HS PRN PRN Reason: Anxiety amLODIPine BESYLATE/BENAZEPRIL [amLODIPine BESYLATE/BENAZEPRIL 5-20 mg] 1 cap PO DAILY Phentermine HCl [Adipex-P] 37.5 mg PO DAILY Zolpidem [Ambien] 10 mg PO HS PRN PRN Reason: Insomnia Discharge Medication List Butalb/APAP/Caff 50-325-40Mg [Fioricet 50-325-40] 1 tab PO Q8HR PRN 05/22/17 [History] DULoxetine HCL [Cymbalta] 60 mg PO HS 05/22/17 [History] Aspirin EC [Ecotrin Low Dose] 81 mg PO DAILY 06/06/18 [History] Loratadine [Claritin] 10 mg PO DAILY 06/06/18 [History] HYDROcodone/APAP 10-325MG [[place] 10-325] 1 tab PO TID PRN 08/18/19 [History] ARIPiprazole [Abilify] 5 mg PO HS 04/27/20 [History] Atorvastatin [Lipitor] 20 mg PO HS 04/27/20 [History] Metoprolol Tartrate [Lopressor] 12.5 mg PO HS 04/27/20 [History] Venlafaxine HCl ER [Effexor XR] 37.5 mg PO DAILY 04/27/20 [History] Ferrous Sulfate [Iron (65 MG Elemental)] 325 mg PO BID 04/21/21 [History] Potassium Chloride [Potassium Chloride ER] 10 meq PO DAILY 04/21/21 [History] rOPINIRole HCL [Requip] 1 mg PO HS 04/21/21 [History] tiZANidine [Zanaflex] 4 mg PO BID PRN 04/21/21 [History] Albuterol Sulfate [Albuterol Sulfate Hfa] 2 puff PO RT-Q4H PRN 05/29/21 [History] Fluticasone/Umeclidin/Vilanter [Trelegy Ellipta 100-62.5-25] 1 puff INHALATION RT-DAILY 12/05/21 [History] Furosemide [Lasix] 40 mg PO DAILY 12/05/21 [History] Ibuprofen [Motrin] 800 mg PO Q8H PRN 12/05/21 [History] Rizatriptan Benzoate [Rizatriptan] 10 mg PO DAILY PRN 12/05/21 [History] metOLazone [Zaroxolyn] 5 mg PO DAILY 12/05/21 [History] Topiramate [Topamax] 50 mg PO BID 04/25/22 [History] Verapamil HCl [Verapamil ER] 180 mg PO DAILY 04/25/22 [History] ALPRAZolam [Xanax] 0.25 mg PO HS PRN 04/30/23 [History] DULoxetine HCL [Cymbalta] 30 mg PO HS 04/30/23 [History] Exemestane [Aromasin] 25 mg PO DAILY 04/30/23 [History] Ondansetron [Zofran] 4 mg PO Q8HR PRN 04/30/23 [History] Phentermine HCl [Adipex-P] 37.5 mg PO DAILY 04/30/23 [History] Zolpidem [Ambien] 10 mg PO HS PRN 04/30/23 [History] amLODIPine BESYLATE/BENAZEPRIL [amLODIPine BESYLATE/BENAZEPRIL 5-20 mg] 1 cap PO DAILY 04/30/23 [History] Budesonide-Formot 160-4.5 Mcg [Symbicort 160-4.5 Mcg Inhaler] 2 puff INHALATION RT-BID #1 inh 05/02/23 [Rx] predniSONE 10 mg PO DIRECTED #30 tab 05/02/23 [Rx] Follow up Appointment(s)/Referral(s): Erickson Li DO [Primary Care Provider] - 3 Days Ivis Benito MD [STAFF PHYSICIAN] - 1 Week
--- NOTE | 2023-05-02 15:19 | P.PN ---
Subjective Progress Note Date: 05/02/23 Principal diagnosis: Acute exacerbation of COPD with acute on chronic hypoxic respiratory failure possible acute diastolic congestive heart failure This is a pleasant 53-year-old female patient with a known history of morbid obesity, headaches, chronic back pain and chronic peripheral neuropathy, abnormal brain lesions, nondiagnostic for MS, hypertension, pulmonary hypertension, chronic tobacco dependence, history of vaping, obstructive sleep apnea maintained on CPAP at 13 cm of water, chronic obstructive pulmonary disease, oxygen dependent and maintained on Trelegy Ellipta. She was to be seen in our office today however when she arrived she was quite short of breath and hypoxemic with O2 saturations in the 60s and 70s and she was brought into the emergency room. Chest x-ray reveals mild cardiomegaly. Patchy medial right basilar and left basilar opacities. Suspect CHF versus aspiration pneumonia. White count 6.7. Hemoglobin 14.1. Platelets 149. D-dimer 0.94. Potassium sodium 140. Potassium 4.3. Bicarb 40. BUN 12. Creatinine 0.51. Glucose 104. ProBNP 311. Troponin negative 1. Influenza screen negative. RSV screen negative. COVID-19 screen negative. She is seen today in consultation on the selective care unit. She is currently resting in bed. She is on BiPAP 10/29 on 40% FiO2. She is awake and alert in no acute distress. O2 saturations at 90% currently. She's been initiated and DuoNeb inhalations, IV Solu-Medrol. Reevaluated today on 05/01/2023, patient is feeling better, she is however on BiPAP. 10/29/40%, patient had negative CT angiogram of the chest, no evidence of pulmonary embolism. Looking at her venous blood gas, patient had a pCO2 of 73 which implies that the patient also has underlying chronic hypercapnic respiratory failure with good metabolic compensation. Her bicarb on the electrolytes is 40 which means the patient does have chronic hypercapnia. I believe the patient will definitely benefit from BiPAP. She does have her own CPAP at home. But doubt compliance with the CPAP. Patient is maximized on treatment including bronchodilators and steroids, patient is also on Lasix 40 mg daily. Patient is also on Zaroxolyn and multiple cardiac meds Patient was seen today on 05/02/2023, feeling better, breathing easier, although workup including CT angiogram of the chest is nondiagnostic. Patient is intermi ttently on BiPAP, she has CPAP at home. She also has oxygen at home. On physical examination she sounded fairly clear, hence I'm recommending discharging the patient home and follow-up with Dr. Benito on outpatient basis. Objective - Vital Signs Vital signs: Vital Signs Temp 98 F 05/02/23 12:00 Pulse 73 05/02/23 12:48 Resp 17 05/02/23 12:00 BP 135/75 05/02/23 12:00 Pulse Ox 95 05/02/23 12:30 FiO2 40 05/02/23 09:10 Intake & Output 05/01/23 05/02/23 05/02/23 18:59 06:59 18:59 Intake Total 1620 1180 Balance 1620 1180 Intake: Oral 1620 1180 Other: Voiding Method Bedside Commode Bedside Commode # Voids 4 - Exam Physical Exam revealed 53-year-old female obese, on BiPAP. Not in distress. Head: Atraumatic, normocephalic. HEENT:[Neck is supple.] [No neck masses.] [No thyromegaly.] [No JVD.] Chest: [Diminished breath sound bilaterally no rhonchi no wheezes no crackles noted. Cardiac Exam: [Normal S1 and S2, no S3 gallop, no murmur.] Abdomen: [Soft, nontender, no megaly, no rebound, no guarding, normal bowel sounds.] Extremities: [No clubbing, trace of bipedal edema, no cyanosis.] Neurological Exam: [No focal neurologic deficit.] Alert and oriented 3. Psychiatric: Normal mood, affect and normal mental status examination. - Labs CBC & Chem 7: 05/02/23 09:32 05/02/23 09:32 Labs: Abnormal Lab Results - Last 24 Hours (Table) 05/01/23 05/01/23 05/02/23 Range/Units 16:58 21:14 06:11 WBC (3.8-10.6) k/uL RBC (3.80-5.40) m/uL Hct (34.0-46.0) % MCHC (31.0-37.0) g/dL RDW (11.5-15.5) % Neutrophils # (1.3-7.7) k/uL Lymphocytes # (1.0-4.8) k/uL Chloride (98-107) mmol/L Carbon Dioxide (22-30) mmol/L BUN (7-17) mg/dL Glucose (74-99) mg/dL POC Glucose (mg/dL) 113 H 225 H 148 H (70-110) mg/dL 05/02/23 05/02/23 05/02/23 Range/Units 09:32 09:32 11:50 WBC 11.2 H (3.8-10.6) k/uL RBC 5.91 H (3.80-5.40) m/uL Hct 50.2 H (34.0-46.0) % MCHC 29.4 L (31.0-37.0) g/dL RDW 16.8 H (11.5-15.5) % Neutrophils # 9.9 H (1.3-7.7) k/uL Lymphocytes # 0.6 L (1.0-4.8) k/uL Chloride 93 L (98-107) mmol/L Carbon Dioxide 38 H (22-30) mmol/L BUN 21 H (7-17) mg/dL Glucose 174 H (74-99) mg/dL POC Glucose (mg/dL) 152 H (70-110) mg/dL Assessment and Plan Assessment: Impression: Acute on chronic hypoxic and hypercapnic respiratory failure secondary to acute exacerbation of COPD Possible acute diastolic congestive heart failure Acute exacerbation of COPD Chronic tobacco dependence History of vaping Pulmonary hypertension Morbid obesity with BMI of 53 Obesity/hypoventilation syndrome Benign essential hypertension Generalized anxiety disorder Chronic pain syndrome Recommendation: Continue bronchodilators Continue steroids and transitioned to oral prednisone. Continue diuretics Continue BiPAP and titrate FiO2 accordingly Counseled regarding smoking cessation. Patient has normally FEV1 of 37% Reassured about her CT angiogram of the chest, we'll clear the patient to be discharged home today and follow-up with Dr. Benito. Time with Patient: Less than 30
--- NOTE | 2023-05-16 06:13 | CDI ---
Documentation Clarification Form Date: 05/16/2023 05:53:35 AM From: Nayely Cota Admit Date: 04/30/2023 01:00:00 PM Patient Name: Kim So Visit Number: [id number] Discharge Date: 05/02/2023 04:22:00 PM ATTENTION: The Clinical Documentation Specialists (CDI) and [facility] Coding Staff appreciate your assistance in clarifying documentation. Please respond to the clarification below the line at the bottom and electronically sign. The CDI & [facility] Coding staff will review the response and follow-up if needed. Please note: Queries are made part of the Legal Health Record. If you have any questions, please contact the author of this message via ITS. Dr. Erickson Li The patients principal diagnosis the diagnosis that was chiefly responsible for the admission - has not been clearly identified and clarification is requested. The patient presented with the following Acute and chronic respiratory failure O2 sat 68% on RA. Per H and P, PN's, pulmonary consult and DCS Final dx is Acute COPD exacerbation, possible Acute CHF exacerbation, diastolic. PN 05/01 and 05/02 along with H and P, pulmonary consult and ER notes document Suspect CHF vs aspiration pneumonia. Please clarify which is principal diagnosis. History/Risk factors: Patient with chronic respiratory failure, morbid obesity, CHF on daily Lasix PO 40 mg, COPD, current everyday smoker Clinical Indicators: Lab findings: BNP 311 VBG PCO2 73 VBG HCO3 36 Radiology findings: Cardiomegaly Patchy medial right basilar and left basilar opacities. This could reflect sequela of CHF. Correlate to exclude pneumonia or aspiration. CT chest Cardiomegaly with pulmonary vascular congestion small bilateral pleural effusion correlate for CHF. Vital Signs: 98.2 F, 87 bpm, 26, 161/89, 68% on RA Treatment: Bipap, Rocephin, Lasix PO 40 mg., Steroids Consults: Pulmonary AECOPD and possible A/C diastolic CHF In your professional opinion, can you please clarify which diagnosis, after study, was the reason chiefly responsible for the admission? [ ] COPD exacerbation [ ] Acute and Chronic diastolic CHF [ ] Aspiration pneumonia [ ] Acute Respiratory Failure [ ] Other, please specify [ ] Unable to determine MTDD
== END 2023-05-02 16:22 | disposition home or self-care (01) | DRG 189 ==
LOC: EC 10:58 → 3SCARD 13:00
PROVIDERS: ADMIT Family Medicine; ATTEND Family Medicine
PROC: 5A09357 Assistance with Respiratory Ventilation, Less than 24 Consecutive Hours, Continuous Positive Airway Pressure (ICD-10-PCS; principal; 2023-04-30)
DX: J96.21 Acute and chronic respiratory failure with hypoxia (principal); I50.33 Acute on chronic diastolic (congestive) heart failure; J44.1 Chronic obstructive pulmonary disease with (acute) exacerbation; Z68.43 Body mass index [BMI] 50.0-59.9, adult; I11.0 Hypertensive heart disease with heart failure; J96.22 Acute and chronic respiratory failure with hypercapnia; G47.33 Obstructive sleep apnea (adult) (pediatric); G62.9 Polyneuropathy, unspecified; E66.01 Morbid (severe) obesity due to excess calories; F40.240 Claustrophobia; G43.909 Migraine, unspecified, not intractable, without status migrainosus; E88.01 Alpha-1-antitrypsin deficiency; G89.4 Chronic pain syndrome; I27.20 Pulmonary hypertension, unspecified; F32.A Depression, unspecified; E78.5 Hyperlipidemia, unspecified; F17.290 Nicotine dependence, other tobacco product, uncomplicated; Z99.81 Dependence on supplemental oxygen; M19.90 Unspecified osteoarthritis, unspecified site; Z20.822 Contact with and (suspected) exposure to COVID-19; Z79.811 Long term (current) use of aromatase inhibitors; Z79.82 Long term (current) use of aspirin; Z79.899 Other long term (current) drug therapy; Z86.73 Personal history of transient ischemic attack (TIA), and cerebral infarction without residual deficits; Z88.5 Allergy status to narcotic agent; Z88.2 Allergy status to sulfonamides; Z91.199 Patient's noncompliance with other medical treatment and regimen due to unspecified reason; Z71.6 Tobacco abuse counseling; F41.1 Generalized anxiety disorder
CPT/HCPCS: 36415; 71045; 71275; 80053; 82803; 83605; 83880; 84145; 84484; 85025; 85379; 85610; 85730; 87636; 93005; 94640; 94660; 96365; 96367; 96375; 99291

== ENCOUNTER → 2023-12-26 | Outpatient (CLI) | payer OTHER, MEDICARE ==
--- NOTE | 2023-12-26 08:47 | USB ---
Reason for Exam: Clinical finding. Patient History: Menarche at age 14. First Full-Term at age 26. Hysterectomy at age 53. Postmenopausal. Breast cancer, right, age 52. 06/22/2022, Malignant MG pre op needle loc RT on the right side. 05/07/2022, Malignant US biopsy breast VAD RT on the right side. 12/03/2018, Benign Core Biopsy on the left side. 08/06/2014, Benign Core Biopsy on the left side. Maternal aunt had breast cancer, age 50. Technique: Method: Targeted. Prior Study Comparison: 04/11/2022 Bilateral MG 3D diag mammo w/cad JULIANA, [facility]. 05/07/2022 Right MG diagnostic mammo RT wo CAD, [facility]. 04/26/2023 Bilateral MG 3D screening mammo w/cad, [facility]. Findings: The upper inner quadrant of the right breast, the axilla of the right breast and the retroareolar of the right breast were scanned. Targeted ultrasound upper inner quadrant right breast 12:00 to 3 clock including the subareolar region and axilla as well as the area of concern/discoloration. No solid or cystic lesion or axillary lymphadenopathy. Short interval follow-up mammogram recommended to assess for any evolving posttreatment change. Overall Assessment: Probably benign, BI-RAD 3 Management: Diagnostic Mammogram of the right breast in 6 months. A clinical breast exam by your physician is recommended on an annual basis and results should be correlated with mammographic findings. This exam should not preclude additional follow-up of suspicious palpable abnormalities. Results were given to the patient verbally at the time of exam. Electronically signed and approved by: Jess Magallon M.D. Radiologist
--- NOTE | 2023-12-26 08:49 | MM ---
Reason for Exam: Clinical finding. Last screening mammogram was performed 8 month(s) ago. Indicated Problems: Skin changes to breast of the right side for 3 Week(s). Patient History: Menarche at age 14. First Full-Term at age 26. Hysterectomy at age 53. Postmenopausal. Breast cancer, right, age 52. 06/22/2022, Malignant MG pre op needle loc RT on the right side. 05/07/2022, Malignant US biopsy breast VAD RT on the right side. 12/03/2018, Benign Core Biopsy on the left side. 08/06/2014, Benign Core Biopsy on the left side. Maternal aunt had breast cancer, age 50. Prior Study Comparison: 11/26/2018 Left Diagnostic Ultrasound, [facility]. 12/03/2018 Left Diagnostic Mammogram, [facility]. 04/11/2022 Right US breast limited RT, [facility]. 04/11/2022 Bilateral MG 3D diag mammo w/cad JULIANA, [facility]. 05/07/2022 Right MG diagnostic mammo RT wo CAD, [facility]. 04/26/2023 Bilateral MG 3D screening mammo w/cad, [facility]. Tissue Density: The breast tissue is heterogeneously dense. This may lower the sensitivity of mammography. Findings: Analyzed By CAD. Postoperative and posttreatment changes right breast. At the medial right breast. Concern, there is an underlying focal asymmetry, approximately 3:00 position which appears to be unchanged compared to multiple prior studies. It may be slightly more pronounced on the CC nipple profile view. Additional areas of bilateral asymmetric densities also appear unchanged. Overall Assessment: Incomplete: need additional imaging evaluation, BI-RAD 0 Management: Diagnostic Breast Ultrasound of the right breast. Electronically signed and approved by: Jess Magallon M.D. Radiologist
== END | disposition home or self-care (01) ==
LOC: RADMAMWWP 07:33
PROVIDERS: ATTEND Internal Medicine Hematology & Oncology
DX: C50.411 Malignant neoplasm of upper-outer quadrant of right female breast (principal); N64.4 Mastodynia; Z78.0 Asymptomatic menopausal state; Z85.3 Personal history of malignant neoplasm of breast
CPT/HCPCS: 77062; 77066

== ENCOUNTER → 2024-05-27 | Outpatient (CLI) | payer OTHER, MEDICARE ==
--- NOTE | 2024-05-27 14:38 | CTL ---
EXAMINATION TYPE: CT Low Dose Lung DATE OF EXAM: 05/27/2024 2:19 PM CLINICAL INDICATION:Female, 54 years old with history of Z12.2 screening, Z87.891 perosnal hx; FORMER CIGARETEE SMOKER QUIT 3 MONTHS AGO. CURRENT VAPER. SMOKED 2ppd X30 YEARS. , history of tobacco use. COMPARISON: 04/30/2023 TECHNIQUE: Multiple axial non-contrast scans were obtained from approximately the lung apices through the upper abdomen. Coronal and sagittal reformatted images were obtained. Low dose technique was uti lized. CT DLP: 138.0 mGycm, Automated exposure control for dose reduction was used. CT Contrast: Contrast used: None Oral contrast used: None FINDINGS: ======== Lack of intravenous contrast and low dose technique limits the evaluation of the vascular and soft ti ssue structures. LUNGS: No evidence of pulmonary fibrosis. No evidence of focal consolidation, pneumothorax or pleural effusion. Centrilobular emphysema changes. Nodules: RUL: None. RML: None. RLL: None. SHALA: None. LLL: None. AIRWAY: Patent and unremarkable. HEART: Heart is mildly enlarged for size. MEDIASTINUM: No gross evidence of adenopathy. VASCULATURE: No aortic aneurysm. MUSCULOSKELETAL: No acute osseous abnormalities SOFT TISSUES/LYMPH NODES: Unremarkable. LOWER NECK: No significant findings. UPPER ABDOMEN: Right lateral liver calcified granuloma. IMPRESSION: 1. No clinically significant pulmonary nodules. 2. Mild emphysema. CT LUNG RAD AND CT CHEST RECOMMENDATION: Lung-Rad 1 Negative: Continue annual screening with LDCT in 12 months. S Modifier (other clinically significant findings): None Recommend smoking cessation (if current smoker), or continuation of smoking cessation (if prior smoke r). Annual screening for lung cancer with low-dose computed tomography is recommended in adults ages 55 to 77 years who have a 30 pack-year smoking history and currently smoke or have quit within the pa st 15 years. Screening should be discontinued once a person has not smoked for 15 years or develops a health problem that substantially limits life expectancy or the ability or willingness to have curat lucas lung surgery. Lung rads 2021 [email or web address]
== END | disposition home or self-care (01) ==
LOC: RADCTMAIN 13:43
PROVIDERS: ATTEND Internal Medicine Hematology & Oncology
DX: Z12.2 Encounter for screening for malignant neoplasm of respiratory organs (principal); J43.9 Emphysema, unspecified; F17.210 Nicotine dependence, cigarettes, uncomplicated
CPT/HCPCS: 71271

== ENCOUNTER 2024-10-18 13:08 | Emergency (ER) | payer OTHER, MEDICARE ==
[2024-10-18] MEDS: HYDROmorphone 1 MG/ML 1 ML SYRINGE IVP STA ×2 (13:33→15:01)
--- NOTE | 2024-10-18 13:34 | XR ---
EXAMINATION TYPE: XR knee limited RT DATE OF EXAM: 10/18/2024 CLINICAL HISTORY: Slip and fall injury with pain and popping. TECHNIQUE: Frontal and cross table lateral views of the right knee are obtained. COMPARISON: Prior right knee x-ray 2012 FINDINGS: There is no acute fracture/dislocation evident in right knee. Metallic hardware from total right knee arthroplasty is present. Hardware position is satisfactory. There is soft tissue edema an d swelling anteriorly with round bony density could reflect heterotopic ossification. IMPRESSION: There is no acute fracture or dislocation in the right knee. [facility], , 10/18/2024 1:32 PM
--- NOTE | 2024-10-18 14:33 | ED ---
Lower Extremity Injury HPI - General Chief Complaint: Extremity Injury, Lower Stated Complaint: Knee Pain Time Seen by Provider: 10/18/24 13:16 Source: patient, EMS, RN notes reviewed Mode of arrival: EMS Limitations: physical limitation - History of Present Illness Initial Comments: 54-year-old female presents emergency department complaint of right knee pain. She had a prior total knee replacement by Dr. Galvez. Patient states that she twisted her knee felt a give out and pop. She states she has pain in the anterior surface of her knee she had no head injury or loss conscious she was given fentanyl by EMS. - Related Data Home Medications Medication Instructions Recorded Confirmed Butalb/APAP/Caff 50-325-40Mg 1 tab PO Q8HR PRN 05/22/17 04/30/23 [Fioricet 50-325-40] DULoxetine HCL [Cymbalta] 60 mg PO HS 05/22/17 04/30/23 Aspirin EC [Ecotrin Low Dose] 81 mg PO DAILY 06/06/18 04/30/23 Loratadine [Claritin] 10 mg PO DAILY 06/06/18 04/30/23 HYDROcodone/APAP 10-325MG [Hamlin 1 tab PO TID PRN 08/18/19 04/30/23 10-325] ARIPiprazole [Abilify] 5 mg PO HS 04/27/20 04/30/23 Atorvastatin [Lipitor] 20 mg PO HS 04/27/20 04/30/23 Metoprolol Tartrate [Lopressor] 12.5 mg PO HS 04/27/20 04/30/23 Venlafaxine HCl ER [Effexor XR] 37.5 mg PO DAILY 04/27/20 04/30/23 Ferrous Sulfate [Iron (65 MG 325 mg PO BID 04/21/21 04/30/23 Elemental)] Potassium Chloride [Potassium 10 meq PO DAILY 04/21/21 04/30/23 Chloride ER] rOPINIRole HCL [Requip] 1 mg PO HS 04/21/21 04/30/23 tiZANidine [Zanaflex] 4 mg PO BID PRN 04/21/21 04/30/23 Albuterol Sulfate [Albuterol 2 puff PO RT-Q4H PRN 05/29/21 04/30/23 Sulfate Hfa] Fluticasone/Umeclidin/Vilanter 1 puff INHALATION RT-DAILY 12/05/21 04/30/23 [Trelegy Ellipta 100-62.5-25] Furosemide [Lasix] 40 mg PO DAILY 12/05/21 04/30/23 Ibuprofen [Motrin] 800 mg PO Q8H PRN 12/05/21 04/30/23 Rizatriptan Benzoate [Rizatriptan] 10 mg PO DAILY PRN 12/05/21 04/30/23 metOLazone [Zaroxolyn] 5 mg PO DAILY 12/05/21 04/30/23 Topiramate [Topamax] 50 mg PO BID 04/25/22 04/30/23 Verapamil HCl [Verapamil ER] 180 mg PO DAILY 04/25/22 04/30/23 ALPRAZolam [Xanax] 0.25 mg PO HS PRN 04/30/23 04/30/23 DULoxetine HCL [Cymbalta] 30 mg PO HS 04/30/23 04/30/23 Exemestane [Aromasin] 25 mg PO DAILY 04/30/23 04/30/23 Ondansetron [Zofran] 4 mg PO Q8HR PRN 04/30/23 04/30/23 Phentermine HCl [Adipex-P] 37.5 mg PO DAILY 04/30/23 04/30/23 Zolpidem [Ambien] 10 mg PO HS PRN 04/30/23 04/30/23 amLODIPine BESYLATE/BENAZEPRIL 1 cap PO DAILY 04/30/23 04/30/23 [amLODIPine BESYLATE/BENAZEPRIL 5-20 mg] Previous Rx's Medication Instructions Recorded Budesonide-Formot 160-4.5 Mcg 2 puff INHALATION RT-BID #1 inh 05/02/23 [Symbicort 160-4.5 Mcg Inhaler] predniSONE 10 mg PO DIRECTED #30 tab 05/02/23 Allergies Allergy/AdvReac Type Severity Reaction Status Date / Time morphine Allergy Itching/hiv Verified 10/18/24 13:22 es/sob peach Allergy Rash/Hives Verified 10/18/24 13:22 pear Allergy Unknown Verified 10/18/24 13:22 Sulfa (Sulfonamide Allergy RAPID Verified 10/18/24 13:22 Antibiotics) HEART RATE AND HIVES Review of Systems ROS Statement: Those systems with pertinent positive or pertinent negative responses have been documented in the HPI. ROS Other: All systems not noted in ROS Statement are negative. Past Medical History Past Medical History: Asthma, COPD, CVA/TIA, Hyperlipidemia, Hypertension, Osteoarthritis (OA), Pneumonia, Sleep Apnea/CPAP/BIPAP, Thyroid Disorder Additional Past Medical History / Comment(s): RSD dx 2013 lesions on brain,"memory issues" possible MS no definitive dx as of yet, peripheral neuropathy-diogenes feet/legs arms, migraines, murmur, occular hypertension, probably stroke-no residual effects, "top part of heart beats slower that the bottom", no cpap used, uses oxygen all the time 2liters, anemia. no insurance coverage for synthroid. History of Any Multi-Drug Resistant Organisms: None Reported Past Surgical History: Appendectomy, Section, Cholecystectomy, Heart Catheterization, Orthopedic Surgery Additional Past Surgical History / Comment(s): diogenes carpal tunnel, left cubital tunnel, d&c, spinal puncture, rt knee surgery arthroscopic Past Anesthesia/Blood Transfusion Reactions: Motion Sickness Additional Past Anesthesia/Blood Transfusion Reaction / Comment(s): claustrophobia. "has had blood in past,-no reaction" Past Psychological History: Anxiety, Depression Smoking Status: Current every day smoker - Past Family History Father Family Medical History: Cancer Brother(s) Family Medical History: Diabetes Mellitus Mother Family Medical History: No Reported History General Exam Limitations: no limitations General appearance: alert, in no apparent distress Head exam: Present: atraumatic, normocephalic, normal inspection Respiratory exam: Present: normal lung sounds bilaterally. Absent: respiratory distress, wheezes, rales, rhonchi, stridor Cardiovascular Exam: Present: regular rate, normal rhythm, normal heart sounds. Absent: systolic murmur, diastolic murmur, rubs, gallop, clicks Extremities exam: Present: other (Right knee there is anterior knee tenderness, limited range of motion, neurovascular intact there is no proximal femur tenderness no distal tibia tenderness) Course Vital Signs 10/18/24 10/18/24 10/18/24 13:18 13:30 14:20 Temperature 98.9 F Pulse Rate 60 60 Respiratory 20 18 Rate Blood Pressure 122/76 119/71 O2 Sat by Pulse 95 95 89 L Oximetry 10/18/24 10/18/24 14:21 15:01 Temperature 98.5 F 98.3 F Pulse Rate 55 L 59 L Respiratory 18 20 Rate Blood Pressure 128/71 134/82 O2 Sat by Pulse 95 92 L Oximetry Medical Decision Making - Medical Decision Making Was pt. sent in by a medical professional or institution (LANDRY Miles, QUARTER LINING SMOOTHER, urgent care, hospital, or [facility]...) When possible be specific @ -No Did you speak to anyone other than the patient for history (EMS, parent, family, police, friend...)? What history was obtained from this source @ -No Did you review nursing and triage notes (agree or disagree)? Why? @ -I reviewed and agree with nursing and triage notes Were old charts reviewed (outside hosp., previous admission, EMS record, old EKG, old radiological studies, urgent care reports/EKG's, [facility] records)? Report findings @ -No old charts were reviewed Differential Diagnosis (chest pain, altered mental status, abdominal pain women, abdominal pain men, vaginal bleeding, weakness, fever, dyspnea, syncope, headache, dizziness, GI bleed, back pain, seizure, CVA, palpatations, mental health, musculoskeletal)? @ -Leg fracture, patellar tendon injury, internal derangement knee EKG interpreted by me (3pts min.). @ -None X-rays interpreted by me (1pt min.). @ -X-ray right knee shows stable hardware probable hypertrophic bone abnormality, high riding patella CT interpreted by me (1pt min.). @ -None done U/S interpreted by me (1pt. min.). @ -None done What testing was considered but not performed or refused? (CT, X-rays, U/S, labs)? Why? @ -None What meds were considered but not given or refused? Why? @ -None Did you discuss the management of the patient with other professionals (professionals i.e. LANDRY Miles, [employer]ARTER LINING SMOOTHER, lab, RT, psych nurse, family welfare social work professor, pelota maker, teacher, defence force senior officer, shelter case manager)? Give summary @ -Discussed the case with Dr. Jessica on-call for orthopedics recommends nonweightbearing, knee immobilizer and follow-up with her surgeon Was smoking cessation discussed for >3mins.? @ -No Was critical care preformed (if so, how long)? @ -No Were there social determinants of health that impacted care today? How? (Homelessness, low income, unemployed, alcoholism, drug addiction, transportation, low edu. Level, literacy, decrease access to med. care, shelter, rehab)? @ -No Was there de-escalation of care discussed even if they declined (Discuss DNR or withdrawal of care, Hospice)? DNR status @ -No What co-morbidities impacted this encounter? (DM, HTN, Smoking, COPD, CAD, Cancer, CVA, ARF, Chemo, Hep., AIDS, mental health diagnosis, sleep apnea, morbid obesity)? @ -None Was patient admitted / discharged? Hospital course, mention meds given and route, prescriptions, significant lab abnormalities, going to OR and other pertinent info. @ -Discharge patient was placed on knee immobilizer patient has Hamlin at home. Patient will follow-up with Dr. Galvez tomorrow return for as discussed. Patient remained nonweightbearing Undiagnosed new problem with uncertain prognosis? @ -No Drug Therapy requiring intensive monitoring for toxicity (Heparin, Nitro, Insulin, Cardizem)? @ -No Were any procedures done? @ -No Diagnosis/symptom? @ -Right knee pain, patellar tendon injury Acute, or Chronic, or Acute on Chronic? @ -Acute Uncomplicated (without systemic symptoms) or Complicated (systemic symptoms)? @ -Uncomplicated Side effects of treatment? @ -No Exacerbation, Progression, or Severe Exacerbation? @ -No Poses a threat to life or bodily function? How? (Chest pain, USA, NH, pneumonia, PE, COPD, DKA, ARF, appy, cholecystitis, CVA, Diverticulitis, Homicidal, Suicidal, threat to staff... and all critical care pts) @ -No Disposition Clinical Impression: Right knee pain, Patellar tendon rupture Disposition: HOME SELF-CARE Condition: Stable Instructions (If sedation given, give patient instructions): Knee Pain (ED) Additional Instructions: Please return to the Emergency Department if symptoms worsen or any other concerns. Is patient prescribed a controlled substance at d/c from ED?: No Referrals: Erickson Li DO [Primary Care Provider] - 1-2 days Jer Galvez MD [REFERRING] - 1-2 days Time of Disposition: 14:33
[2024-10-18 15:01] VITALS: BP 134/82; PULSE 59; RESP 20; TEMP 98.3
== END 2024-10-18 15:16 | disposition home or self-care (01) ==
LOC: EC 13:08
DX: S86.811A Strain of other muscle(s) and tendon(s) at lower leg level, right leg, initial encounter (principal); Z86.73 Personal history of transient ischemic attack (TIA), and cerebral infarction without residual deficits; F17.200 Nicotine dependence, unspecified, uncomplicated; Z88.2 Allergy status to sulfonamides; Z88.8 Allergy status to other drugs, medicaments and biological substances; Z91.018 Allergy to other foods; X50.1XXA Overexertion from prolonged static or awkward postures, initial encounter
CPT/HCPCS: 73560; 99283; 96374; 96376; L1830; J1171

== ENCOUNTER 2024-10-26 00:22 | Inpatient (IN) | payer OTHER, MEDICARE ==
[2024-10-26] MEDS: NALOXONE 0.4 MG/ML 1 ML VIAL IVP STA ×3 (00:27→00:33)
[2024-10-26] MEDS: ATROPINE SULFATE 0.1 MG/ML 10ML SYRINGE IV STA ×5 (00:31→02:28)
[2024-10-26] MEDS: SODIUM BICARB 8.4% 50 ML SYR (1 MEQ/ML) IV STA ×3 (00:35→11:46)
[2024-10-26] MEDS ORDERED: MIDAZOLAM 1 MG/ML 5 ML VIAL IV PRN (01:12)
[2024-10-26] MEDS: IPRATROPIUM-ALBUTEROL 3 ML NEB INHALATION STA (01:21)
[2024-10-26] MEDS: ALBUTEROL NEBULIZED 2.5 MG/3 ML INHALATION SCH (01:21)
--- NOTE | 2024-10-26 01:27 | XR ---
EXAM: XR Chest, 1 View CLINICAL HISTORY: ITS.REASON XR Reason: intubation TECHNIQUE: Frontal view of the chest. COMPARISON: X-ray chest: 04/30/2023 FINDINGS: Patient's body habitus limits the exam. Underexpanded lungs. Endotracheal tube terminates 1 cm proximal to the izabella. Lungs: Patchy alveolointerstitial opacities are seen in both lung [place] more at the basal regions, pulmonary edema versus pneumonia. Pleural space: Unremarkable. No pneumothorax. Heart: There is a cardiomegaly. Bones/joints: No obvious acute osseous findings.. IMPRESSION: A low-lying endotracheal tube. Recommend 2-3 cm proximal retraction. Low lung volumes. Widespread patchy alveolointerstitial opacities both lungs, pulmonary edema versus pneumonia. Cardiomegaly. .
[2024-10-26] MEDS: ATROPINE SULFATE 0.4 MG/ML 20 ML VIAL IV STA ×2 (01:35→01:49)
[2024-10-26] MEDS: CALCIUM CHLORIDE 1 GM in SODIUM CHLORIDE 0.9% 50 ML IVPB ONE (01:39)
[2024-10-26 01:41] LABS: Appearance,Urine Cloudy (Clear); Bacteria,Urine Rare /hpf; Bilirubin,Urine Negative (Negative); Blood,Urine Negative (Negative); Budding Yeast,Urine Rare /hpf; Color,Urine Yellow; Glucose,Urine (UA) Negative (Negative); Granular Casts,Urine 1 /lpf (0); Hyaline Casts,Urine 19 /lpf (0-2); Ketones,Urine Negative (Negative); Leukocyte Esterase,Urine Small (Negative); Mucus,Urine Rare /hpf; Nitrite,Urine Negative (Negative); Protein,Urine 1+ (Negative); RBC,Urine 2 /hpf (0-5); Squamous Epithelial Cell,Urine 1 /hpf (0-4); WBC,Urine 8 /hpf (0-5)
[2024-10-26] MEDS: KETAMINE 10 MG/ML 20 ML VIAL IV ONE (01:45)
[2024-10-26] MEDS: ETOMIDATE 2 MG/ML 10 ML VIAL IVP STA (01:45)
[2024-10-26] MEDS: EPINEPHrine 4 MG in DEXTROSE 5% IN WATER 250 ML IV ONE (01:47)
[2024-10-26] MEDS: MIDAZOLAM HCL 50 MG in SODIUM CHLORIDE 0.9% 40 ML IV SCH (01:47)
[2024-10-26 01:50] LABS: Amphetamine Screen,Urine Not Detected (NotDetected); Barbiturate Screen,Urine Not Detected (NotDetected); Benzodiazepines Screen,Urine Not Detected (NotDetected); Cocaine Screen,Urine Not Detected (NotDetected); Methadone Screen, Urine Not Detected (NotDetected); Opiate Screen,Urine Detected (NotDetected); Oxycodone Screen, Urine Not Detected (NotDetected); Phencyclidine Screen,Urine Not Detected (NotDetected); Tricyclic Antidepressant,Urine Not Detected (NotDetected); Urn Cannabinoid Scrn Not Detected (NotDetected)
[2024-10-26 02:22] LABS: INR 1.1 (<1.2); Partial Thromboplastin Time 22.2 sec (22.0-30.0); Prothrombin Time 12.1 sec (10.0-12.5)
--- NOTE | 2024-10-26 02:32 | ED ---
General Adult HPI - General Chief complaint: Altered Mental Status Stated complaint: AMS Time Seen by Provider: 10/26/24 01:05 Source: EMS Mode of arrival: EMS - History of Present Illness Initial comments: Patient is a 54-year-old female with a past medical history of COPD, complex regional pain syndrome presenting today for altered mental status. EMS was called by patient's daughter who stated the patient has been hallucinating and confused for the last 2 days. Upon EMS arrival patient was altered, had a blood pressure of 80 /palp, pulse ox of 70% on room air was placed on a nonrebreather. EKG showed bradycardia with rates in the 30s and 20s. Patient presents with 2 bags of medications including various muscle relaxants, sedating medications, Friendship, verapamil. No blood thinners. Patient did have a recent knee surgery about 3 months ago. Was here in the emergency department on 10/18/2024 for persistent knee pain. Family states the patient had a fall about 1 week ago but her confusion has been ongoing for only 2 days. Patient herself is currently oriented to self and place but not time. She states that she took 1 extra Friendship and 1 extra Flexeril tonight denies any other medications. Denies suicide attempts. She currently denies chest pain states she has had some abdominal pain for the last few days and has not felt well today. Endorses some shortness of breath. Not on thinners. Hx limited by patient's altered mental status. Blood glucose per EMS was 191. - Related Data Home Medications Medication Instructions Recorded Confirmed Butalb/APAP/Caff 50-325-40Mg 1 tab PO Q8HR PRN 05/22/17 04/30/23 [Fioricet 50-325-40] DULoxetine HCL [Cymbalta] 60 mg PO HS 05/22/17 04/30/23 Aspirin EC [Ecotrin Low Dose] 81 mg PO DAILY 06/06/18 04/30/23 Loratadine [Claritin] 10 mg PO DAILY 06/06/18 04/30/23 HYDROcodone/APAP 10-325MG [Friendship 1 tab PO TID PRN 08/18/19 04/30/23 10-325] ARIPiprazole [Abilify] 5 mg PO HS 04/27/20 04/30/23 Atorvastatin [Lipitor] 20 mg PO HS 04/27/20 04/30/23 Metoprolol Tartrate [Lopressor] 12.5 mg PO HS 04/27/20 04/30/23 Venlafaxine HCl ER [Effexor XR] 37.5 mg PO DAILY 04/27/20 04/30/23 Ferrous Sulfate [Iron (65 MG 325 mg PO BID 04/21/21 04/30/23 Elemental)] Potassium Chloride [Potassium 10 meq PO DAILY 04/21/21 04/30/23 Chloride ER] rOPINIRole HCL [Requip] 1 mg PO HS 04/21/21 04/30/23 tiZANidine [Zanaflex] 4 mg PO BID PRN 04/21/21 04/30/23 Albuterol Sulfate [Albuterol 2 puff PO RT-Q4H PRN 05/29/21 04/30/23 Sulfate Hfa] Fluticasone/Umeclidin/Vilanter 1 puff INHALATION RT-DAILY 12/05/21 04/30/23 [Trelegy Ellipta 100-62.5-25] Furosemide [Lasix] 40 mg PO DAILY 12/05/21 04/30/23 Ibuprofen [Motrin] 800 mg PO Q8H PRN 12/05/21 04/30/23 Rizatriptan Benzoate [Rizatriptan] 10 mg PO DAILY PRN 12/05/21 04/30/23 metOLazone [Zaroxolyn] 5 mg PO DAILY 12/05/21 04/30/23 Topiramate [Topamax] 50 mg PO BID 04/25/22 04/30/23 Verapamil HCl [Verapamil ER] 180 mg PO DAILY 04/25/22 04/30/23 ALPRAZolam [Xanax] 0.25 mg PO HS PRN 04/30/23 04/30/23 DULoxetine HCL [Cymbalta] 30 mg PO HS 04/30/23 04/30/23 Exemestane [Aromasin] 25 mg PO DAILY 04/30/23 04/30/23 Ondansetron [Zofran] 4 mg PO Q8HR PRN 04/30/23 04/30/23 Phentermine HCl [Adipex-P] 37.5 mg PO DAILY 04/30/23 04/30/23 Zolpidem [Ambien] 10 mg PO HS PRN 04/30/23 04/30/23 amLODIPine BESYLATE/BENAZEPRIL 1 cap PO DAILY 04/30/23 04/30/23 [amLODIPine BESYLATE/BENAZEPRIL 5-20 mg] Previous Rx's Medication Instructions Recorded Budesonide-Formot 160-4.5 Mcg 2 puff INHALATION RT-BID #1 inh 05/02/23 [Symbicort 160-4.5 Mcg Inhaler] predniSONE 10 mg PO DIRECTED #30 tab 05/02/23 Allergies Allergy/AdvReac Type Severity Reaction Status Date / Time morphine Allergy Itching/hiv Verified 10/26/24 00:31 es/sob peach Allergy Rash/Hives Verified 10/26/24 00:31 pear Allergy Unknown Verified 10/26/24 00:31 Sulfa (Sulfonamide Allergy RAPID Verified 10/26/24 00:31 Antibiotics) HEART RATE AND HIVES Review of Systems ROS Statement: Those systems with pertinent positive or pertinent negative responses have been documented in the HPI. Limitations: ROS unobtainable due to patients medical condition Past Medical History Past Medical History: Asthma, COPD, CVA/TIA, Hyperlipidemia, Hypertension, Osteoarthritis (OA), Pneumonia, Sleep Apnea/CPAP/BIPAP, Thyroid Disorder Additional Past Medical History / Comment(s): RSD dx 2013 lesions on brain,"memory issues" possible MS no definitive dx as of yet, peripheral neuropathy-diogenes feet/legs arms, migraines, murmur, occular hypertension, probably stroke-no residual effects, "top part of heart beats slower that the bottom", no cpap used, uses oxygen all the time 2liters, anemia. no insurance coverage for synthroid. History of Any Multi-Drug Resistant Organisms: None Reported Past Surgical History: Appendectomy, Section, Cholecystectomy, Heart Catheterization, Orthopedic Surgery Additional Past Surgical History / Comment(s): diogenes carpal tunnel, left cubital tunnel, d&c, spinal puncture, rt knee surgery arthroscopic Past Anesthesia/Blood Transfusion Reactions: Motion Sickness Additional Past Anesthesia/Blood Transfusion Reaction / Comment(s): beatris strophobia. "has had blood in past,-no reaction" Past Psychological History: Anxiety, Depression Smoking Status: Current every day smoker - Past Family History Father Family Medical History: Cancer Brother(s) Family Medical History: Diabetes Mellitus Mother Family Medical History: No Reported History General Exam - General Exam Comments Initial Comments: PE: CONSTITUTIONAL: Ill appearing, somnolent, NRB in place, opens eyes to loud voice, toxic appearing, in acute distress SKIN: Cool, damp, no jaundice, hives; scattered petechiae across abdomen, various bruises scattered across bilateral LE EYES: Pupils are equally round, 4 mm, reactive to light, extraocular movements intact without nystagmus, clear conjunctiva, non-icteric sclera HENT: Normocephalic, atraumatic, moist mucus membranes, oropharynx clear without exudates NECK: , Full range of motion, normal appearance PULMONARY: Diminished breath sounds bilaterally, limited by body habitus, bradyapnea, no accessory muscle use, crackles, rhonchi or stidor or wheezes CARDIOVASCULAR: Bradycardic rate, regular rhythm, normal S1 and S2. No appreciated murmurs, rubs or gallops. Thready radial pulses bilaterally, finger tips and toes are pale and cool to the touch, no LE edema GASTROINTESTINAL: Soft, active bowel sounds throughout, tender in the bilateral lower quadrants to deep palpation, guarding present with deep palpation of these regions, non-distended, no palpable masses, No hepatosplenomegaly, however again limited by body habitus GENITOURINARY: MUSCULOSKELETAL: Extremities have no gross deformity, no edema, redness, or swelling. No calf swelling NEUROLOGIC:_a/o x 2, GCS 12, confused mentation and slurred speech. no focal neurologic deficits, no facial droop, does spontaneously move all 4 extremities PSYCHIATRIC:_patient somnolent and confused, cooperative, denies SI Course Vital Signs 10/26/24 10/26/24 10/26/24 00:24 00:27 00:30 Temperature Pulse Rate 46 L Respiratory 12 10 L 10 L Rate Blood Pressure 136/111 O2 Sat by Pulse 83 L Oximetry Fraction of Inspired Oxygen (FIO2) 10/26/24 10/26/24 10/26/24 00:33 00:35 00:45 Temperature Pulse Rate 64 48 L Respiratory 8 L 8 L 8 L Rate Blood Pressure 117/65 122/84 O2 Sat by Pulse 85 L 84 L Oximetry Fraction of Inspired Oxygen (FIO2) 10/26/24 10/26/24 10/26/24 00:50 00:55 01:00 Temperature Pulse Rate 46 L 45 L 40 L Respiratory 10 L 12 22 Rate Blood Pressure 133/93 117/92 86/70 O2 Sat by Pulse 85 L 88 L 89 L Oximetry Fraction of Inspired Oxygen (FIO2) 10/26/24 10/26/24 10/26/24 01:05 01:10 01:20 Temperature Pulse Rate 33 L 39 L 35 L Respiratory 22 22 Rate Blood Pressure 84/68 72/45 O2 Sat by Pulse 92 L 92 L Oximetry Fraction of Inspired Oxygen (FIO2) 10/26/24 10/26/24 10/26/24 01:24 01:40 02:00 Temperature Pulse Rate 36 L 74 72 Respiratory 22 22 Rate Blood Pressure 105/77 96/73 O2 Sat by Pulse 92 L 92 L Oximetry Fraction of 100 Inspired Oxygen (FIO2) 10/26/24 10/26/24 10/26/24 02:05 02:25 02:30 Temperature Pulse Rate 74 Respiratory 22 24 24 Rate Blood Pressure 60/39 90/43 96/46 O2 Sat by Pulse 92 L 94 L 96 Oximetry Fraction of Inspired Oxygen (FIO2) 10/26/24 10/26/24 02:40 02:44 Temperature 97.8 F Pulse Rate Respiratory 24 Rate Blood Pressure 62/48 O2 Sat by Pulse 92 L Oximetry Fraction of Inspired Oxygen (FIO2) EKG Findings - EKG Comments: EKG Findings:: EKG interpretation performed at 12:25 AM, shows what appears to be wide-complex bradycardia bigeminy,, no discernible P waves, no clear ST elevations, rate 45 bpm, KS interval 212 ms, QRS duration 173 ms, QT/QTc 457/112, normal axis. Repeat EKG performed at 12:42 AM, appears to show a regular supraventricular rhythm, no discernible P waves, rate 48 bpm, QRS duration 123 ms, QT/QTc 445/412 ms, normal axis, T wave inversion lead V1 and V3, no clear ST elevations or depressions Procedures - Central Line Placement Right IJ Consent Obtained: emergent situation Patient Placed on Monitor/Pulse Ox: Yes Prep: mask, gown, gloves Central Line Prep: Chlorhexidine scrub, sterile drapes applied Local Anesthesia Used: Lidocaine 1% Amount of Anesthesia Used (mls): 2 Ultrasound Used for Placement: Yes Central Line Lumen Inserted: triple Bloods Obtained for Lab: Yes Central Line Position: good blood return, all ports aspirated, flushed, capped, sutured in place with 2-0 silk Dressing Applied: Tegaderm Post Procedure X-Ray: tip of catheter in good position Patient Tolerated Procedure: well Complications: none Additional Comments: Right IJ CVC placed under ultrasound guidance and confirmed with chest XR - Intubation Sedative: Etomidate (200 mg ketamine, 20 mg etomidate) Paralytic: Rocuronium (100 mg) Laryngoscope: Lissa Size: 3 ET Tube Size: 7.5 ET Tube Uncuffed: Yes Tube Secured Depth (cm): 22 Tube Secured Location: teeth Tube Placement Confirmation: visualized tube passing through cords, equal breath sounds bilaterally, no breath sounds over epigastrium, confirmation by capnometry Patient Tolerated Procedure: well Additional Comments: Patient intubated for impending respiratory failure/airway protection, due to persistent hypoxemia and body habitus, awake intubation was attempted with ket amine and etomidate, this was achieved on 2nd attempt, paralytic given as tube was visualized passing through cords. CXR confirmed placement, was 2 cm above izabella, pulled back 2 cm and repeat CXR showed ETT in satisfactory position Medical Decision Making - Medical Decision Making Was pt. sent in by a medical professional or institution (, PA, COLLEGE ADMISSIONS COUNSELOR, urgent care, hospital, or shelter...) When possible be specific @ -No Did you speak to anyone other than the patient for history (EMS, parent, family, police, friend...)? What history was obtained from this source @ EMS personel, later , after arrival of family, spoke with patient's daughter Did you review nursing and triage notes (agree or disagree)? Why? @ -I reviewed and agree with nursing and triage notes Were old charts reviewed (outside hosp., previous admission, EMS record, old EKG, old radiological studies, urgent care reports/EKG's, shelter records)? Report findings @ -Medical records reviewed Differential Diagnosis (chest pain, altered mental status, abdominal pain women, abdominal pain men, vaginal bleeding, weakness, fever, dyspnea, syncope, headache, dizziness, GI bleed, back pain, seizure, CVA, palpatations, mental health, musculoskeletal)? @ -Differential Altered Mental Status: Hypoglycemia, DKA, hypercapnia, ETOH, overdose, CO poisoning, trauma, myxedema coma, HTN encephalopathy, infection, encephalitis, psychosis, intercranial hemorrhage, hepatic encephalopathy, meningitis, CVA, this is not meant to be an all-inclusive list EKG interpreted by me (3pts min.). @ -As above X-rays interpreted by me (1pt min.). @Chest x-ray #1 shows diffuse pulmonary edema, cardiomegaly, ET tube approximately 2 cm above izabella, no pneumothorax, repeat chest x-ray shows right IJ central line in the SVC, ET tube approximately 3 cm above izabella, persistent cardiomegaly and pulmonary infiltrates CT interpreted by me (1pt min.). @ -None done U/S interpreted by me (1pt. min.). @ -None done What testing was considered but not performed or refused? (CT, X-rays, U/S, labs)? Why? @ -None What meds were considered but not given or refused? Why? @ -None Did you discuss the management of the patient with other professionals (professionals i.e. , PA, COLLEGE ADMISSIONS COUNSELOR, lab, RT, psych nurse, medical social consultant, community recreation programmer, teacher, chief operating officer, family preservation caseworker)? Give summary @This case was discussed with Dr. Calderon, cardiology; Dr. Patel, critical care, Dr. Goodman nephrology, and Dr. Mckeon, vascular surgery Was smoking cessation discussed for >3mins.? @ -No Was critical care preformed (if so, how long)? @ -Yes 90 minutes Were there social determinants of health that impacted care today? How? (Homelessness, low income, unemployed, alcoholism, drug addiction, transportatio n, low edu. Level, literacy, decrease access to med. care, assisted, rehab)? @ -No Was there de-escalation of care discussed even if they declined (Discuss DNR or withdrawal of care, Hospice)? @ -No What co-morbidities impacted this encounter? (DM, HTN, Smoking, COPD, CAD, Cancer, CVA, ARF, Chemo, Hep., AIDS, mental health diagnosis, sleep apnea, morbid obesity)? @ -Obesity, COPD, complex regional pain syndrome Was patient admitted / discharged? Hospital course, mention meds given and route, prescriptions, significant lab abnormalities, going to OR and other pertinent info. @ -Admission to Critical Care This is a 54-year-old female with past medical history of COPD, complex regional pain syndrome presenting today for altered mental status. Patient seen and assessed immediately on arrival. EMS report they were called to the patient's home today by patient's daughter for altered mental status and reported concerns that patient took too many of her home flexeril. POC glucose per EMS 191. Patient reportedly had pulse ox 70% on room air on their arrival, bradycardic, hypotensive and altered. She is currently on nonrebreather mask in place and is somnolent. She open eyes to loud voice, and localizes to pain GCS12, pulse ox on arrival 89% on nonrebreather. Smells strongly of emesis. Airway is clear. Heart rate in the 30s. She has weak radial pulses. Distal extremities are cool and pale. Dimished breath sounds bilaterally however patient is obese, limiting exam. Abdomen is soft but patient guards when lower abdomen palpated. Scattered bruises of varying ages across LE. Petechiae on abdomen No focal neurologic deficits or signs of head trauma. Blood pressure stable on arrival. Pupils are 3 equal round reactive, patient is confused but when name is called with loud voice she does respond, AO x2. Patient states that she took potentially 1 extra Friendship and one extra Flexeril tonight. She is oriented x 2. She denies suicidality. Presents with 2 bags full of multiple medications. States has not felt well today. No fall in the last 2 days since the patient has been confused, states she did fall about 1 week ago at [facility]. 0.4 mg Narcan given x2 with minimal response. Patient did become somewhat more alert briefly however again became quickly somnolent. Out of concern for impending airway compromise, the decision was made to intubate the patient. Due to patient's body habitus and anticipated difficulty ventilating patient, awake intubation was used. Mayra ent was given 200 mg of ketamine as well as 20 mg of etomidate with intubation successful on the second attempt. Paralytic was given afterwards. CVC placed, labs drawn from central line due to difficulty obtaining labs from peripheral lines. Repeat glucose check 60, amp D50 given. Patient additionally given amp of bicarb, gram salas gluconate, atropine 1 mg x 3 with slight increase in HR to 50s. Patient started on propofol and versed for sedation. Patient did develop hypotension so epinephrine infusion was initiated. Transcutaneous pacing started. CT brain, PE studies with CT abdomen pelvis were ordered as patient's abdomen was tender on arrival however due to patient requiring transcutaneous pacing and remaining unstable, was not able to be transported to CT scanner. Despite epinephrine infusion patient became more hypotensive and remained bradycardic. Called Dr. Calderon, cardiology, for temporary pacemaker, due to patient's persistent bradycardia and now hypotension, who kindly requested cathode ray tube salvage processor be activated and he will be on his way. Out of concern for polysubstance overdose, accidental, question at least in part 2/2 anticholinergic toxicity, additional amp of bicarb was given as well as bicarb drip. Patient's family arrived at bedside, patient's daughter provided history as noted above and in HPI. Patient remains full code, family updated to patient's status and plan of care thus far. Case discussed with Dr. Benito, critical care, who accepts pt for admit to ICU. Patient transferred to cathode ray tube salvage processor for temporary pacemaker placement, to be transferred to ICU after completion of procedure in cathode ray tube salvage processor. Patient's labs began resulting shortly after transfer to cathode ray tube salvage processor and showed Potassium 8.6, sodium 135, chloride 109, bicarb 17, BUN 86, creatinine 3.24, GFR 16, glucose was noted to be 47 however blood glucose checked after this was 60, as noted above and patient was given amp of D50 and response. Patient's liver enzymes are severely elevated with an AST 1420, ALT 1446 negative troponin, acetaminophen level was undetectable. Repeat chest x-ray also noted possible developing infiltrate so antibiotics were ordered. Paged Dr. Thomas regarding hyperkalemia as patient was still in [employer] at the time this resulted. Dr. Benito to update Dr. Calderon, he requests that I consult Dr. Goodman of nephrology. Ordered 80 mg IV Lasix, high-dose albuterol, 10 units IV insulin with amp D50. Paged Dr. Goodman. Discussed with Dr. Goodman, agrees with initerventions for hyperK thus far, additionally recommends lokelma, and repeat potassium ordered. Request consult to vascular surgery for emergent dialysis catheter placement, he will plan to order emergent dialysis. Discussed case with vascular surgeon on-call, Dr. Mckeon, kindly agreed to consult for emergent dialysis catheter placement. Case was additionally presented to Dr. Sosa, [facility], who kindly accepted patient for admission. Patient has been admitted to the ICU in critical condition. Undiagnosed new problem with uncertain prognosis? @ Yes Drug Therapy requiring intensive monitoring for toxicity (Heparin, Nitro, Insulin, Cardizem)? @ -No Were any procedures done? @ -Yes Central line placement and intubation Diagnosis/symptom? @Cardiogenic shock, acute renal failure, hyperkalemia, acute hypoxic respiratory failure Acute, or Chronic, or Acute on Chronic? @Acute Uncomplicated (without systemic symptoms) or Complicated (systemic symptoms)? Complicated Side effects of treatment? @ -No Exacerbation, Progression, or Severe Exacerbation? @ -No Poses a threat to life or bodily function? How? (Chest pain, [place], CO, pneumonia, PE, COPD, DKA, ARF, appy, cholecystitis, CVA, Diverticulitis, Homicidal, Suicidal, threat to staff... and all critical care pts) Yes, patient is in critical condition at time of admission - Lab Data Result diagrams: 10/26/24 01:54 10/26/24 06:04 Lab Results 10/26/24 10/26/24 10/26/24 Range/Units 01:20 01:20 01:54 WBC (3.8-10.6) k/uL RBC COLLEGE ADMISSIONS COUNSELOR Hgb COLLEGE ADMISSIONS COUNSELOR Hct COLLEGE ADMISSIONS COUNSELOR MCV COLLEGE ADMISSIONS COUNSELOR MCH COLLEGE ADMISSIONS COUNSELOR MCHC COLLEGE ADMISSIONS COUNSELOR RDW COLLEGE ADMISSIONS COUNSELOR Plt Count COLLEGE ADMISSIONS COUNSELOR MPV COLLEGE ADMISSIONS COUNSELOR Neutrophils % Not Reportable Neutrophils % (Manual) COLLEGE ADMISSIONS COUNSELOR Band Neuts % (Manual) COLLEGE ADMISSIONS COUNSELOR Lymphocytes % Not Reportable Lymphocytes % (Manual) COLLEGE ADMISSIONS COUNSELOR Monocytes % Not Reportable Monocytes % (Manual) COLLEGE ADMISSIONS COUNSELOR Eosinophils % Not Reportable Eosinophils % (Manual) COLLEGE ADMISSIONS COUNSELOR Basophils % Not Reportable Metamyelocytes % COLLEGE ADMISSIONS COUNSELOR Myelocytes % COLLEGE ADMISSIONS COUNSELOR Blast Cells % COLLEGE ADMISSIONS COUNSELOR Neutrophils # Not Reportable Neutrophils # (Manual) COLLEGE ADMISSIONS COUNSELOR Lymphocytes # Not Reportable Lymphocytes # (Manual) COLLEGE ADMISSIONS COUNSELOR Monocytes # Not Reportable Monocytes # (Manual) COLLEGE ADMISSIONS COUNSELOR Eosinophils # Not Reportable Eosinophils # (Manual) COLLEGE ADMISSIONS COUNSELOR Basophils # Not Reportable Metamyelocytes # (Man) COLLEGE ADMISSIONS COUNSELOR Myelocytes # (Manual) COLLEGE ADMISSIONS COUNSELOR Blast Cells # (Man) COLLEGE ADMISSIONS COUNSELOR Nucleated RBCs COLLEGE ADMISSIONS COUNSELOR Manual Slide Review COLLEGE ADMISSIONS COUNSELOR Pathologist Review Not Reportable Polychromasia COLLEGE ADMISSIONS COUNSELOR Hypochromasia COLLEGE ADMISSIONS COUNSELOR Anisocytosis COLLEGE ADMISSIONS COUNSELOR Tear Drop Cells COLLEGE ADMISSIONS COUNSELOR Crenated Cell COLLEGE ADMISSIONS COUNSELOR Fragmented RBCs COLLEGE ADMISSIONS COUNSELOR PT (10.0-12.5) sec INR (<1.2) APTT (22.0-30.0) sec Sodium (137-145) mmol/L Potassium (3.5-5.1) mmol/L Chloride (98-107) mmol/L Carbon Dioxide (22-30) mmol/L Anion Gap mmol/L BUN (7-17) mg/dL Creatinine (0.52-1.04) mg/dL Est GFR (CKD-EPI)AfAm (>60 ml/min/1.73 sqM) Est GFR (CKD-EPI)NonAf (>60 ml/min/1.73 sqM) Glucose (74-99) mg/dL POC Glucose (mg/dL) (70-110) mg/dL POC Glu Overhauler Helper ID Calcium (8.4-10.2) mg/dL Total Bilirubin (0.2-1.3) mg/dL AST (14-36) U/L ALT (4-34) U/L Alkaline Phosphatase (38-126) U/L Troponin I (0.000-0.034) ng/mL Total Protein (6.3-8.2) g/dL Albumin (3.5-5.0) g/dL TSH (0.465-4.680) mIU/L Free T4 (0.78-2.19) ng/dL Urine Color Yellow Urine Appearance Cloudy H (Clear) Urine pH 5.0 (5.0-8.0) Ur Specific [place] 1.020 (1.001-1.035) Urine Protein 1+ H (Negative) Urine Glucose (UA) Negative (Negative) Urine Ketones Negative (Negative) Urine Blood Negative (Negative) Urine Nitrite Negative (Negative) Urine Bilirubin Negative (Negative) Urine Urobilinogen 3.0 (<2.0) mg/dL Ur Leukocyte Esterase Small H (Negative) Urine RBC 2 (0-5) /hpf Urine WBC 8 H (0-5) /hpf Ur Squamous Epith Cells 1 (0-4) /hpf Urine Bacteria Rare H (None) /hpf Hyaline Casts 19 H (0-2) /lpf Granular Casts 1 (0) /lpf Urine Mucus Rare H (None) /hpf Urine Yeast (Budding) Rare H (None) /hpf Salicylates mg/dL Urine Opiates Screen Detected H (NotDetected) Ur Oxycodone Screen Not Detected (NotDetected) Urine Methadone Screen Not Detected (NotDetected) Acetaminophen ug/mL Ur Barbiturates Screen Not Detected (NotDetected) U Tricyclic Antidepress Not Detected (NotDetected) Ur Phencyclidine Scrn Not Detected (NotDetected) Ur Amphetamines Screen Not Detected (NotDetected) U Methamphetamines Scrn Not Detected (NotDetected) U Benzodiazepines Scrn Not Detected (NotDetected) Urine Cocaine Screen Not Detected (NotDetected) U Marijuana (THC) Screen Not Detected (NotDetected) Serum Alcohol mg/dL 10/26/24 10/26/24 10/26/24 Range/Units 01:54 01:54 01:54 WBC (3.8-10.6) k/uL RBC Hgb Hct MCV MCH MCHC RDW Plt Count MPV Neutrophils % Neutrophils % (Manual) Band Neuts % (Manual) Lymphocytes % Lymphocytes % (Manual) Monocytes % Monocytes % (Manual) Eosinophils % Eosinophils % (Manual) Basophils % Metamyelocytes % Myelocytes % Blast Cells % Neutrophils # Neutrophils # (Manual) Lymphocytes # Lymphocytes # (Manual) Monocytes # Monocytes # (Manual) Eosinophils # Eosinophils # (Manual) Basophils # Metamyelocytes # (Man) Myelocytes # (Manual) Blast Cells # (Man) Nucleated RBCs Manual Slide Review Pathologist Review Polychromasia Hypochromasia Anisocytosis Tear Drop Cells Crenated Cell Fragmented RBCs PT 12.1 (10.0-12.5) sec INR 1.1 (<1.2) APTT 22.2 (22.0-30.0) sec Sodium 135 L (137-145) mmol/L Potassium 8.6 H* (3.5-5.1) mmol/L Chloride 109 H (98-107) mmol/L Carbon Dioxide 17 L (22-30) mmol/L Anion Gap 9 mmol/L BUN 86 H (7-17) mg/dL Creatinine 3.24 H (0.52-1.04) mg/dL Est GFR (CKD-EPI)AfAm 18 (>60 ml/min/1.73 sqM) Est GFR (CKD-EPI)NonAf 16 (>60 ml/min/1.73 sqM) Glucose 47 L* (74-99) mg/dL POC Glucose (mg/dL) (70-110) mg/dL POC Glu Overhauler Helper ID Calcium 8.8 (8.4-10.2) mg/dL Total Bilirubin 1.4 H (0.2-1.3) mg/dL AST 1420 H (14-36) U/L ALT 1446 H (4-34) U/L Alkaline Phosphatase 111 (38-126) U/L Troponin I <0.012 (0.000-0.034) ng/mL Total Protein 5.6 L (6.3-8.2) g/dL Albumin 2.9 L (3.5-5.0) g/dL TSH 9.660 H (0.465-4.680) mIU/L Free T4 1.35 (0.78-2.19) ng/dL Urine Color Urine Appearance (Clear) Urine pH (5.0-8.0) Ur Specific [place] (1.001-1.035) Urine Protein (Negative) Urine Glucose (UA) (Negative) Urine Ketones (Negative) Urine Blood (Negative) Urine Nitrite (Negative) Urine Bilirubin (Negative) Urine Urobilinogen (<2.0) mg/dL Ur Leukocyte Esterase (Negative) Urine RBC (0-5) /hpf Urine WBC (0-5) /hpf Ur Squamous Epith Cells (0-4) /hpf Urine Bacteria (None) /hpf Hyaline Casts (0-2) /lpf Granular Casts (0) /lpf Urine Mucus (None) /hpf Urine Yeast (Budding) (None) /hpf Salicylates <1.0 mg/dL Urine Opiates Screen (NotDetected) Ur Oxycodone Screen (NotDetected) Urine Methadone Screen (NotDetected) Acetaminophen <10.0 ug/mL Ur Barbiturates Screen (NotDetected) U Tricyclic Antidepress (NotDetected) Ur Phencyclidine Scrn (NotDetected) Ur Amphetamines Screen (NotDetected) U Methamphetamines Scrn (NotDetected) U Benzodiazepines Scrn (NotDetected) Urine Cocaine Screen (NotDetected) U Marijuana (THC) Screen (NotDetected) Serum Alcohol <10 mg/dL 10/26/24 10/26/24 Range/Units 01:54 02:35 WBC 16.8 H (3.8-10.6) k/uL RBC 4.08 Hgb 10.9 L Hct 37.0 MCV 90.5 MCH 26.8 MCHC 29.6 L RDW 18.7 H Plt Count 262 MPV 10.6 Neutrophils % Neutrophils % (Manual) Band Neuts % (Manual) Lymphocytes % Lymphocytes % (Manual) Monocytes % Monocytes % (Manual) Eosinophils % Eosinophils % (Manual) Basophils % Metamyelocytes % Myelocytes % Blast Cells % Neutrophils # Neutrophils # (Manual) Lymphocytes # Lymphocytes # (Manual) Monocytes # Monocytes # (Manual) Eosinophils # Eosinophils # (Manual) Basophils # Metamyelocytes # (Man) Myelocytes # (Manual) Blast Cells # (Man) Nucleated RBCs Manual Slide Review Pathologist Review Polychromasia Hypochromasia Marked Anisocytosis Slight Tear Drop Cells Crenated Cell Fragmented RBCs PT (10.0-12.5) sec INR (<1.2) APTT (22.0-30.0) sec Sodium (137-145) mmol/L Potassium (3.5-5.1) mmol/L Chloride (98-107) mmol/L Carbon Dioxide (22-30) mmol/L Anion Gap mmol/L BUN (7-17) mg/dL Creatinine (0.52-1.04) mg/dL Est GFR (CKD-EPI)AfAm (>60 ml/min/1.73 sqM) Est GFR (CKD-EPI)NonAf (>60 ml/min/1.73 sqM) Glucose (74-99) mg/dL POC Glucose (mg/dL) 60 L (70-110) mg/dL POC Glu Overhauler Helper ID Jaswinder Jessi Calcium (8.4-10.2) mg/dL Total Bilirubin (0.2-1.3) mg/dL AST (14-36) U/L ALT (4-34) U/L Alkaline Phosphatase (38-126) U/L Troponin I (0.000-0.034) ng/mL Total Protein (6.3-8.2) g/dL Albumin (3.5-5.0) g/dL TSH (0.465-4.680) mIU/L Free T4 (0.78-2.19) ng/dL Urine Color Urine Appearance (Clear) Urine pH (5.0-8.0) Ur Specific [place] (1.001-1.035) Urine Protein (Negative) Urine Glucose (UA) (Negative) Urine Ketones (Negative) Urine Blood (Negative) Urine Nitrite (Negative) Urine Bilirubin (Negative) Urine Urobilinogen (<2.0) mg/dL Ur Leukocyte Esterase (Negative) Urine RBC (0-5) /hpf Urine WBC (0-5) /hpf Ur Squamous Epith Cells (0-4) /hpf Urine Bacteria (None) /hpf Hyaline Casts (0-2) /lpf Granular Casts (0) /lpf Urine Mucus (None) /hpf Urine Yeast (Budding) (None) /hpf Salicylates mg/dL Urine Opiates Screen (NotDetected) Ur Oxycodone Screen (NotDetected) Urine Methadone Screen (NotDetected) Acetaminophen ug/mL Ur Barbiturates Screen (NotDetected) U Tricyclic Antidepress (NotDetected) Ur Phencyclidine Scrn (NotDetected) Ur Amphetamines Screen (NotDetected) U Methamphetamines Scrn (NotDetected) U Benzodiazepines Scrn (NotDetected) Urine Cocaine Screen (NotDetected) U Marijuana (THC) Screen (NotDetected) Serum Alcohol mg/dL Disposition Clinical Impression: Acute encephalopathy, Cardiogenic shock, Polysubstance overdose, Acute renal failure, Hyperkalemia, Acute hypoxic respiratory failure Disposition: ADMITTED IP TO THIS HOSP Condition: Critical
[2024-10-26 02:36] LABS: Acetaminophen <10.0 ug/mL; African American GFR (CKD) 18 (>60 ml/min/1.73 sqM); Albumin 2.9 g/dL (3.5-5.0); Alcohol <10 mg/dL; Alkaline Phosphatase 111 U/L (38-126); Anion Gap 9 mmol/L; Blood Urea Nitrogen 86 mg/dL (7-17); Calcium 8.8 mg/dL (8.4-10.2); Carbon Dioxide 17 mmol/L (22-30); Chloride 109 mmol/L (98-107); Non-African American GFR(CKD) 16 (>60 ml/min/1.73 sqM); Salicylate <1.0 mg/dL; Sodium 135 mmol/L (137-145); Total Bilirubin 1.4 mg/dL (0.2-1.3); Total Protein 5.6 g/dL (6.3-8.2)
[2024-10-26 02:38] LABS: Glucose,Whole Blood 60 mg/dL (70-110)
[2024-10-26] MEDS: DEXTROSE 50% SYRINGE 50 ML IVP STA (02:39)
[2024-10-26] MEDS: DEXTROSE 5% IN WATER 1,000 ML with SODIUM BICARB (1 MEQ/ML) 150 ML IV SCH (02:40)
[2024-10-26 02:41] LABS: AST 1420 U/L (14-36)
[2024-10-26 02:42] LABS: ALT 1446 U/L (4-34)
[2024-10-26] MEDS ORDERED: Phosphorus Replacement Protoco 1 EACH MISC MISCELLANE PRN (02:56)
[2024-10-26] MEDS ORDERED: ARTIFICIAL TEARS-HYPROMELLOSE DROPS 15 ML BTL BOTH EYES PRN (02:56)
[2024-10-26] MEDS ORDERED: NALOXONE 0.4 MG/ML 1 ML VIAL IV PRN (02:56)
[2024-10-26] MEDS ORDERED: Magnesium Replacement Protocol 1 EACH MISC MISCELLANE PRN (02:56)
[2024-10-26] MEDS ORDERED: Potassium Replacement Protocol 1 EACH MISC MISCELLANE PRN (02:56)
[2024-10-26] MEDS ORDERED: ACETAMINOPHEN SUPPOSITORY 650 MG SUPP RECTAL PRN (02:56)
--- NOTE | 2024-10-26 02:58 | XR ---
EXAM: XR Chest, 1 View CLINICAL HISTORY: ITS.REASON XR Reason: tube placement TECHNIQUE: Frontal view of the chest. COMPARISON: Chest x-ray: 10/26/2020 at 0100 hours FINDINGS: Exam limited by patient's body habitus and overlying/carrying board artifact. Endotracheal tube terminates about 5 cm proximal to the izabella. A right IJ central line catheter is placed with the tip in the region of the distal SVC. Lungs: Again noted widespread alveolointerstitial opacities in somewhat butterfly configuration in both lungs RT>LT, concerning for worsening pulmonary edema versus massive pneumonia. Pleural space: No substantial pleural effusion. No pneumothorax. Heart: There is a cardiomegaly. Bones/joints: No obvious acute osseous findings. IMPRESSION: Appropriately placed an endotracheal tube and a right IJ central catheter. Cardiomegaly and worsening pulmonary edema versus massive pneumonia. .
[2024-10-26 03:06] LABS: Glucose 47 mg/dL (74-99); Potassium 8.6 mmol/L (3.5-5.1)
[2024-10-26] MEDS: DOPamine DRIP 800 MG in DEXTROSE/WATER 1 250ML.BAG IV ONE (03:18)
[2024-10-26] MEDS: SODIUM CHLORIDE 0.9% 500 ML 500 ML IV ONE (03:18)
[2024-10-26] MEDS: DEXTROSE 50% SYRINGE 50 ML IVP ONE ×2 (03:18→04:45)
--- NOTE | 2024-10-26 03:26 | P.CRDCN ---
History of Present Illness Consult date: 10/26/24 History of present illness: History of Present Illness: The patient is a 54-year-old female who presented to the emergency room with symptoms of change in mental status and was noted to be according to the emergency room notes confused for the last 2 days hallucinating and on presentation to the emergency room was severely bradycardic and hypotensive. She has a history of COPD, morbid obesity, obstructive sleep apnea who apparently had a recent knee surgery about 3 months ago and was on a lot of pain medications. She persisted to be bradycardic in the emergency room. She was intubated to protect her airway and because of the persistent bradycardia cardiology consultation was requested. On arrival to the cardiac catheterization the patient heart rate was in the 60s. Her blood pressure was in the 120s on norepinephrine. The decision was made to hold on pacemaker insertion. Reviewing the old records it appears that the patient had a preserved systolic function and no documented history of ischemic heart disease. Her lab data showed a potassium of 8.6 with a BUN of 86 and creatinine 3.24 and her WBC was 16.8. Her troponin was less than 0.012 and her TSH was 9.6. She has significantly abnormal liver function test. No other history could be obta ined, the patient is intubated and sedated. She received atropine in the emergency room. Medications: Zanaflex, Requip, prednisone, amlodipine benazepril 520, verapamil 180 mg daily, Zofran, metoprolol 12-1/2 mg daily, Lasix 40 mg daily, Trelegy, Cymbalta, atorvastatin, aspirin, Abilify, Xanax, albuterol Review of Systems: Could not be obtained, the patient is intubated and sedated Physical Examination: 54-year-old female morbidly obese, intubated and sedated,Blood pressure 129/70, Heart rate 59 Head: Normocephalic. Eyes: Sclerae nonicteric, pupils dilated and fixed. Neck: Good carotid upstroke, no bruit, no jugular venous distention. Lungs: Clear to auscultation, anteriorly. Heart: Regular rate and rhythm, S1-S2, no S3, no rub. No murmur. Abdomen: Soft, obese, positive bowel sounds no organomegaly. Extremities: +1-2 edema, intact distal pulses. Labs: Potassium 8.6, BUN 86, creatinine 3.24, bicarb 17. AST 1420 ALT 1446 troponin less than 0.012. TSH 9.6. WBC 16.8, hemoglobin 10.9. Chest x-ray with bilateral infiltrate rule out pneumonia versus fluid overload EKG: EKG shows wide-complex rhythm with bradycardia appears to be junctional Impression: 1. Change in mental status with respiratory failure, could be worsened by polypharmacy 2. Bradycardia probably worsened by the hyperkalemia and worsening renal functions 3. Abnormal liver functions 4. Hyperkalemia 5. Acute renal injury 6. History of hypertension 7. History of chronic obstructive lung disease 8. History of obstructive sleep apnea 9. Morbid obesity Plan: 1. We will hold on putting a temporary pacemaker at this time her rhythm is stable 2. Treat hyperkalemia 3. Add IV dopamine for heart rate 4. Nephrology consultation 5. Obtain an echocardiogram with Doppler 6. Follow liver functions and renal functions, probably related to shock liver and acute renal injury, in the past her renal functions were stable 7. Depending on her progress further recommendations will be made, the prognosis is guarded. Thank you for this consult we will follow with you. Past Medical History Past Medical History: Asthma, COPD, CVA/TIA, Hyperlipidemia, Hypertension, O steoarthritis (OA), Pneumonia, Sleep Apnea/CPAP/BIPAP, Thyroid Disorder Additional Past Medical History / Comment(s): RSD dx 2012 lesions on brain,"memory issues" possible MS no definitive dx as of yet, peripheral neuropathy-diogenes feet/legs arms, migraines, murmur, occular hypertension, probably stroke-no residual effects, "top part of heart beats slower that the bottom", no cpap used, uses oxygen all the time 2liters, anemia. no insurance coverage for synthroid. History of Any Multi-Drug Resistant Organisms: None Reported Past Surgical History: Appendectomy, Section, Cholecystectomy, Heart Catheterization, Orthopedic Surgery Additional Past Surgical History / Comment(s): diogenes carpal tunnel, left cubital tunnel, d&c, spinal puncture, rt knee surgery arthroscopic Past Anesthesia/Blood Transfusion Reactions: Motion Sickness Additional Past Anesthesia/Blood Transfusion Reaction / Comment(s): claustrophobia. "has had blood in past,-no reaction" Past Psychological History: Anxiety, Depression Smoking Status: Current every day smoker - Past Family History Father Family Medical History: Cancer Brother(s) Family Medical History: Diabetes Mellitus Mother Family Medical History: No Reported History Medications and Allergies Home Medications Medication Instructions Recorded Confirmed Type Butalb/APAP/Caff 50-325-40Mg 1 tab PO Q8HR PRN 05/22/17 04/30/23 History [Fioricet 50-325-40] DULoxetine HCL [Cymbalta] 60 mg PO HS 05/22/17 04/30/23 History Aspirin EC [Ecotrin Low Dose] 81 mg PO DAILY 06/06/18 04/30/23 History Loratadine [Claritin] 10 mg PO DAILY 06/06/18 04/30/23 History HYDROcodone/APAP 10-325MG [[place] 1 tab PO TID PRN 08/18/19 04/30/23 History 10-325] ARIPiprazole [Abilify] 5 mg PO HS 04/27/20 04/30/23 History Atorvastatin [Lipitor] 20 mg PO HS 04/27/20 04/30/23 History Metoprolol Tartrate [Lopressor] 12.5 mg PO HS 04/27/20 04/30/23 History Venlafaxine HCl ER [Effexor XR] 37.5 mg PO DAILY 04/27/20 04/30/23 History Ferrous Sulfate [Iron (65 MG 325 mg PO BID 04/21/21 04/30/23 History Elemental)] Potassium Chloride [Potassium 10 meq PO DAILY 04/21/21 04/30/23 History Chloride ER] rOPINIRole HCL [Requip] 1 mg PO HS 04/21/21 04/30/23 History tiZANidine [Zanaflex] 4 mg PO BID PRN 04/21/21 04/30/23 History Albuterol Sulfate [Albuterol 2 puff PO RT-Q4H PRN 05/29/21 04/30/23 History Sulfate Hfa] Fluticasone/Umeclidin/Vilanter 1 puff INHALATION RT-DAILY 12/05/21 04/30/23 History [Trelegy Ellipta 100-62.5-25] Furosemide [Lasix] 40 mg PO DAILY 12/05/21 04/30/23 History Ibuprofen [Motrin] 800 mg PO Q8H PRN 12/05/21 04/30/23 History Rizatriptan Benzoate [Rizatriptan] 10 mg PO DAILY PRN 12/05/21 04/30/23 History metOLazone [Zaroxolyn] 5 mg PO DAILY 12/05/21 04/30/23 History Topiramate [Topamax] 50 mg PO BID 04/25/22 04/30/23 History Verapamil HCl [Verapamil ER] 180 mg PO DAILY 04/25/22 04/30/23 History ALPRAZolam [Xanax] 0.25 mg PO HS PRN 04/30/23 04/30/23 History DULoxetine HCL [Cymbalta] 30 mg PO HS 04/30/23 04/30/23 History Exemestane [Aromasin] 25 mg PO DAILY 04/30/23 04/30/23 History Ondansetron [Zofran] 4 mg PO Q8HR PRN 04/30/23 04/30/23 History Phentermine HCl [Adipex-P] 37.5 mg PO DAILY 04/30/23 04/30/23 History Zolpidem [Ambien] 10 mg PO HS PRN 04/30/23 04/30/23 History amLODIPine BESYLATE/BENAZEPRIL 1 cap PO DAILY 04/30/23 04/30/23 History [amLODIPine BESYLATE/BENAZEPRIL 5-20 mg] Budesonide-Formot 160-4.5 Mcg 2 puff INHALATION RT-BID #1 inh 05/02/23 Rx [Symbicort 160-4.5 Mcg Inhaler] predniSONE 10 mg PO DIRECTED #30 tab 05/02/23 Rx Allergies Allergy/AdvReac Type Severity Reaction Status Date / Time morphine Allergy Itching/hiv Verified 10/26/24 00:31 es/sob peach Allergy Rash/Hives Verified 10/26/24 00:31 pear Allergy Unknown Verified 10/26/24 00:31 Sulfa (Sulfonamide Allergy RAPID Verified 10/26/24 00:31 Antibiotics) HEART RATE AND HIVES Physical Exam Vitals: Vital Signs Temp Pulse Resp BP Pulse Ox FiO2 10/26/24 02:44 97.8 F 10/26/24 02:40 24 62/48 92 L 10/26/24 02:30 24 96/46 96 10/26/24 02:25 24 90/43 94 L 10/26/24 02:05 74 22 60/39 92 L 10/26/24 02:00 72 22 96/73 92 L 10/26/24 01:40 74 22 105/77 92 L 10/26/24 01:24 36 L 100 10/26/24 01:20 35 L 22 72/45 92 L 10/26/24 01:10 39 L 22 84/68 92 L 10/26/24 01:05 33 L 10/26/24 01:00 40 L 22 86/70 89 L 10/26/24 00:55 45 L 12 117/92 88 L 10/26/24 00:50 46 L 10 L 133/93 85 L 10/26/24 00:45 48 L 8 L 122/84 84 L 10/26/24 00:35 64 8 L 117/65 85 L 10/26/24 00:33 8 L 10/26/24 00:30 10 L 10/26/24 00:27 10 L 10/26/24 00:24 46 L 12 136/111 83 L Intake and Output 10/25/24 10/25/24 10/26/24 14:59 22:59 06:59 Intake Total 58.842 Balance 58.842 Intake: Intake, IV Titration 58.842 Amount EPINEPHrine 4 mg In 13.991 Dextrose 5% in Water 250 ml @ 0.03 MCG/KG/MIN 16. 46 mls/hr IV .[id number] [facility] Rx#:[id number] propofoL 1,000 mg In 44.851 Empty Bag 1 bag @ 15 MCG/ KG/MIN 13.064 mls/hr IV . Q7H40M [facility] Rx#:[id number] Other: Weight 145.15 kg Results 10/26/24 01:54 10/26/24 01:54 Cardiac Enzymes 10/26/24 10/26/24 Range/Units 01:54 01:54 AST 1420 H (14-36) U/L Troponin I <0.012 (0.000-0.034) ng/mL Coagulation 10/26/24 Range/Units 01:54 PT 12.1 (10.0-12.5) sec APTT 22.2 (22.0-30.0) sec CBC 10/26/24 Range/Units 01:54 WBC 16.8 H (3.8-10.6) k/uL RBC 4.08 (3.80-5.40) m/uL Hgb 10.9 L (11.4-16.0) gm/dL Hct 37.0 (34.0-46.0) % Plt Count 262 (150-450) k/uL Comprehensive Metabolic Panel 10/26/24 Range/Units 01:54 Sodium 135 L (137-145) mmol/L Potassium 8.6 H* (3.5-5.1) mmol/L Chloride 109 H (98-107) mmol/L Carbon Dioxide 17 L (22-30) mmol/L BUN 86 H (7-17) mg/dL Creatinine 3.24 H (0.52-1.04) mg/dL Glucose 47 L* (74-99) mg/dL Calcium 8.8 (8.4-10.2) mg/dL AST 1420 H (14-36) U/L ALT 1446 H (4-34) U/L Alkaline Phosphatase 111 (38-126) U/L Total Protein 5.6 L (6.3-8.2) g/dL Albumin 2.9 L (3.5-5.0) g/dL Current Medications Generic Name Dose Route Start Last Admin Trade Name Freq PRN Reason Stop Dose Admin Acetaminophen 650 mg 10/26/24 02:56 Acetaminophen Suppository 650 Mg Supp RECTAL Q4HR PRN Fever And/ Or Mild Pain Albuterol/Ipratropium 3 ml 10/26/24 08:00 Ipratropium-Albuterol 3 Ml Neb INHALATION RT-QID SUMEET Artificial Tears 1 drops 10/26/24 02:56 Artificial Tears-Hypromellose Drops 15 Ml Btl BOTH EYES Q4HR PRN Dry Eye(s) Midazolam HCl 50 mg/ Sodium 50 mls @ 1 mls/hr 10/26/24 01:15 10/26/24 01:47 Chloride IV 1 mg/hr .Q24H SUMEET 1 mls/hr Administration Protocol 1 MG/HR Propofol 1,000 mg/ IV Solution 100 mls @ 13.064 mls/hr 10/26/24 01:15 10/26/24 02:44 IV 25 mcg/kg/min .Q7H40M SUMEET 21.773 mls/hr Titration Protocol 15 MCG/KG/MIN Epinephrine HCl 4 mg/ Dextrose 252 mls @ 16.46 mls/hr 10/26/24 01:24 10/26/24 02:38 /Water IV 10/26/24 16:42 0.13 mcg/kg/min .[id number] ONE 71.327 mls/hr Titration Protocol 0.03 MCG/KG/MIN Sodium Bicarbonate 150 ml/ 1,150 mls @ 200 mls/hr 10/26/24 02:30 10/26/24 02:40 Dextrose/Water IV 200 mls/hr .Q5H45M SUMEET Administration Ceftriaxone Sodium 2 gm/ 50 mls @ 100 mls/hr 10/26/24 02:53 Sodium Chloride IVPB 10/26/24 03:22 ONCE STA Protocol Dextrose/Sodium Chloride 1,000 mls @ 20 mls/hr 10/26/24 03:00 Dextrose 5%-1/2ns Iv Soln IV .Q24H SUMEET Midazolam HCl 10 mg 10/26/24 01:12 Midazolam 1 Mg/Ml 5 Ml Vial IV ONCE PRN Agitation Miscellaneous Information 1 each 10/26/24 02:56 Potassium Replacement Protocol 1 Each Misc MISCELLANE DAILY PRN Per Protocol Miscellaneous Information 1 each 10/26/24 02:56 Magnesium Replacement Protocol 1 Each Misc MISCELLANE DAILY PRN Per Protocol Protocol Miscellaneous Information 1 each 10/26/24 02:56 Phosphorus Replacement Protoco 1 Each Misc MISCELLANE DAILY PRN Per Protocol Protocol Multi-Ingred Cream/Lotion/Oil/Oint 1 applic 10/26/24 02:56 Artificial Tears Ointment 3.5 Gm Tube BOTH EYES Q4HR PRN Dry Eye(s) Naloxone HCl 0.2 mg 10/26/24 02:56 Naloxone 0.4 Mg/Ml 1 Ml Vial IV Q2M PRN Opioid Reversal Pantoprazole Sodium 40 mg 10/26/24 09:00 Pantoprazole 40 Mg/10 Ml Vial IV DAILY SUMEET Intake and Output 10/25/24 10/25/24 10/26/24 14:59 22:59 06:59 Intake Total 58.842 Balance 58.842 Intake: Intake, IV Titration 58.842 Amount EPINEPHrine 4 mg In 13.991 Dextrose 5% in Water 250 ml @ 0.03 MCG/KG/MIN 16. 46 mls/hr IV .[id number] Rx#:[id number] propofoL 1,000 mg In 44.851 Empty Bag 1 bag @ 15 MCG/ KG/MIN 13.064 mls/hr IV . Q7H40M [facility] Rx#:[id number] Other: Weight 145.15 kg Patient Weight 10/26/24 06:59 Weight 145.15 kg 10/26/24 01:54 10/26/24 01:54
[2024-10-26 03:35] LABS: T4, Free (Free Thyroxine) 1.35 ng/dL (0.78-2.19)
[2024-10-26 03:48] LABS: Glucose,Whole Blood 216 mg/dL (70-110)
[2024-10-26 04:04] LABS: Glucose,Whole Blood 190 mg/dL (70-110)
[2024-10-26 04:10] LABS: Allen Test Performed? Yes
[2024-10-26 04:11] LABS: ABG Base Excess -13.4 mmol/L; ABG HCO3 15 mmol/L (21-25); ABG PCO2 46 mmHg (35-45); ABG PH 7.13 (7.35-7.45); ABG PO2 91 mmHg (83-108); ABG TCO2 16 mmol/L (19-24)
[2024-10-26] MEDS: ALBUTEROL NEB (CONC) 2.5 MG/0.5 ML INHALATION ONE (04:14)
[2024-10-26] MEDS: INSULIN REGULAR 100 UNIT/ML VIAL (IV) IV ONE (04:34)
[2024-10-26 04:45] LABS: Glucose,Whole Blood 232 mg/dL (70-110)
[2024-10-26] MEDS: DEXTROSE 5%-0.45% NACL 1,000 ML IV SCH (04:51)
[2024-10-26] MEDS: HYDROCORTISONE SUCCINATE 100 MG/2 ML VIAL IV STA (04:51)
[2024-10-26] MEDS: FUROSEMIDE 10 MG/ML 10 ML VIAL IV STA (04:51)
[2024-10-26] MEDS: SODIUM ZIRCONIUM CYCLOSILICATE 10 GM PACKET PO ONE (05:55)
--- NOTE | 2024-10-26 06:19 | XR ---
EXAM: XR Chest, 1 View CLINICAL HISTORY: ITS.REASON XR Reason: OG placement TECHNIQUE: Frontal view of the chest. COMPARISON: 10/26/24 at 0205 hrs. FINDINGS: Lungs: Increased lung markings, right worse than left. This is unchanged overall, noting difference in technique. Pleural space: Low lung volume limit evaluation. No pneumothorax. Heart: Cardiovascular silhouette, enlarged and unchanged.. Mediastinum: Unremarkable. Normal mediastinal contour. Bones/joints: Unremarkable. No acute fracture. Tubes, lines and devices: Right-sided central venous catheter, unchanged. Endotracheal tube tip approximately 4 cm from the izabella. NG tube, coursing beyond the GE junction, tip not seen, although presumably in the stomach. Overlying chest leads obscure portion of the chest. IMPRESSION: 1. Interval placement of NG tube , tip not seen, although presumably in the stomach. 2. Remaining support apparatus, unchanged. 3. Stable enlarged cardiopericardial silhouette.
[2024-10-26] MEDS ORDERED: EPINEPHrine 4 MG in DEXTROSE 5% IN WATER 250 ML IV SCH (06:31)
--- NOTE | 2024-10-26 06:40 | P.GSCN ---
History of Present Illness History of present illness: 54-year-old white female I was consulted patient has a high potassium for placement of urgent dialysis catheter. Patient has history of COPD, sleep apnea, obesity Patient was seen in the intensive care unit she has been intubated Chest crackles bilateral . Second sound present Abdomen protuberant Plan is placement of a dialysis catheter risk and complication discussed Past Medical History Past Medical History: Asthma, COPD, CVA/TIA, Hyperlipidemia, Hypertension, Osteoarthritis (OA), Pneumonia, Sleep Apnea/CPAP/BIPAP, Thyroid Disorder Additional Past Medical History / Comment(s): RSD dx 2012 lesions on brain,"me nicolas issues" possible MS no definitive dx as of yet, peripheral neuropathy-diogenes feet/legs arms, migraines, murmur, occular hypertension, probably stroke-no residual effects, "top part of heart beats slower that the bottom", no cpap used, uses oxygen all the time 2liters, anemia. no insurance coverage for synthroid. History of Any Multi-Drug Resistant Organisms: None Reported Past Surgical History: Appendectomy, Section, Cholecystectomy, Heart Catheterization, Orthopedic Surgery Additional Past Surgical History / Comment(s): diogenes carpal tunnel, left cubital tunnel, d&c, spinal puncture, rt knee surgery arthroscopic Past Anesthesia/Blood Transfusion Reactions: Motion Sickness Additional Past Anesthesia/Blood Transfusion Reaction / Comm: claustrophobia. "has had blood in past,-no reaction" Past Psychological History: Anxiety, Depression Additional Psychological History / Comment(s): Pt has claustrophobia. Pt resides with her spouse. She states she is fairly independent. She uses oxgen ATC. She has a nebulizer, cane and walker. Smoking Status: Current every day smoker Past Alcohol Use History: None Reported Additional Past Alcohol Use History / Comment(s): started smoking 1987, smokes 1 PPD Past Drug Use History: None Reported Additional Drug Use History / Comment(s): occ use of marijuana edibles and smoking. pt knows not to use 24hrs before procedure - Past Family History Father Family Medical History: Cancer Brother(s) Family Medical History: Diabetes Mellitus Mother Family Medical History: No Reported History Medications and Allergies Home Medications Medication Instructions Recorded Confirmed Type Butalb/APAP/Caff 50-325-40Mg 1 tab PO Q8HR PRN 05/22/17 04/30/23 History [Fioricet 50-325-40] DULoxetine HCL [Cymbalta] 60 mg PO HS 05/22/17 04/30/23 History Aspirin EC [Ecotrin Low Dose] 81 mg PO DAILY 06/06/18 04/30/23 History Loratadine [Claritin] 10 mg PO DAILY 06/06/18 04/30/23 History HYDROcodone/APAP 10-325MG [[place] 1 tab PO TID PRN 08/18/19 04/30/23 History 10-325] ARIPiprazole [Abilify] 5 mg PO HS 04/27/20 04/30/23 History Atorvastatin [Lipitor] 20 mg PO HS 04/27/20 04/30/23 History Metoprolol Tartrate [Lopressor] 12.5 mg PO HS 04/27/20 04/30/23 History Venlafaxine HCl ER [Effexor XR] 37.5 mg PO DAILY 04/27/20 04/30/23 History Ferrous Sulfate [Iron (65 MG 325 mg PO BID 04/21/21 04/30/23 History Elemental)] Potassium Chloride [Potassium 10 meq PO DAILY 04/21/21 04/30/23 History Chloride ER] rOPINIRole HCL [Requip] 1 mg PO HS 04/21/21 04/30/23 History tiZANidine [Zanaflex] 4 mg PO BID PRN 04/21/21 04/30/23 History Albuterol Sulfate [Albuterol 2 puff PO RT-Q4H PRN 05/29/21 04/30/23 History Sulfate Hfa] Fluticasone/Umeclidin/Vilanter 1 puff INHALATION RT-DAILY 12/05/21 04/30/23 History [Trelegy Ellipta 100-62.5-25] Furosemide [Lasix] 40 mg PO DAILY 12/05/21 04/30/23 History Ibuprofen [Motrin] 800 mg PO Q8H PRN 12/05/21 04/30/23 History Rizatriptan Benzoate [Rizatriptan] 10 mg PO DAILY PRN 12/05/21 04/30/23 History metOLazone [Zaroxolyn] 5 mg PO DAILY 12/05/21 04/30/23 History Topiramate [Topamax] 50 mg PO BID 04/25/22 04/30/23 History Verapamil HCl [Verapamil ER] 180 mg PO DAILY 04/25/22 04/30/23 History ALPRAZolam [Xanax] 0.25 mg PO HS PRN 04/30/23 04/30/23 History DULoxetine HCL [Cymbalta] 30 mg PO HS 04/30/23 04/30/23 History Exemestane [Aromasin] 25 mg PO DAILY 04/30/23 04/30/23 History Ondansetron [Zofran] 4 mg PO Q8HR PRN 04/30/23 04/30/23 History Phentermine HCl [Adipex-P] 37.5 mg PO DAILY 04/30/23 04/30/23 History Zolpidem [Ambien] 10 mg PO HS PRN 04/30/23 04/30/23 History amLODIPine BESYLATE/BENAZEPRIL 1 cap PO DAILY 04/30/23 04/30/23 History [amLODIPine BESYLATE/BENAZEPRIL 5-20 mg] Budesonide-Formot 160-4.5 Mcg 2 puff INHALATION RT-BID #1 inh 05/02/23 Rx [Symbicort 160-4.5 Mcg Inhaler] predniSONE 10 mg PO DIRECTED #30 tab 05/02/23 Rx Allergies Allergy/AdvReac Type Severity Reaction Status Date / Time morphine Allergy Itching/hiv Verified 10/26/24 00:31 es/sob peach Allergy Rash/Hives Verified 10/26/24 00:31 pear Allergy Unknown Verified 10/26/24 00:31 Sulfa (Sulfonamide Allergy RAPID Verified 10/26/24 00:31 Antibiotics) HEART RATE AND HIVES Surgical - Exam Vital Signs Pulse Resp BP Pulse Ox 46 L 12 136/111 83 L 10/26/24 00:24 10/26/24 00:24 10/26/24 00:24 10/26/24 00:24 Results - Labs 10/26/24 01:54 10/26/24 01:54 Abnormal Lab Results - Last 24 Hours (Table) 10/26/24 10/26/24 10/26/24 Range/Units 01:20 01:20 01:54 WBC 11.7 H (3.8-10.6) k/uL Hgb 10.9 L (11.4-16.0) gm/dL MCHC 29.6 L (31.0-37.0) g/dL RDW 18.7 H (11.5-15.5) % Blast Cells % 1 H* % Neutrophils # (Manual) 8.60 H (1.3-7.7) k/uL Metamyelocytes # (Man) 0.47 H (0) k/uL Myelocytes # (Manual) 0.12 H (0) k/uL Blast Cells # (Man) 0.12 H (0) k/uL Nucleated RBCs 43 H (0-0) /100 WBC ABG pH (7.35-7.45) ABG pCO2 (35-45) mmHg ABG HCO3 (21-25) mmol/L ABG Total CO2 (19-24) mmol/L Sodium (137-145) mmol/L Potassium (3.5-5.1) mmol/L Chloride (98-107) mmol/L Carbon Dioxide (22-30) mmol/L BUN (7-17) mg/dL Creatinine (0.52-1.04) mg/dL Glucose (74-99) mg/dL POC Glucose (mg/dL) (70-110) mg/dL Total Bilirubin (0.2-1.3) mg/dL AST (14-36) U/L ALT (4-34) U/L Total Protein (6.3-8.2) g/dL Albumin (3.5-5.0) g/dL TSH (0.465-4.680) mIU/L Urine Appearance Cloudy H (Clear) Urine Protein 1+ H (Negative) Ur Leukocyte Esterase Small H (Negative) Urine WBC 8 H (0-5) /hpf Urine Bacteria Rare H (None) /hpf Hyaline Casts 19 H (0-2) /lpf Urine Mucus Rare H (None) /hpf Urine Yeast (Budding) Rare H (None) /hpf Urine Opiates Screen Detected H (NotDetected) 10/26/24 10/26/24 10/26/24 Range/Units 01:54 02:35 03:33 WBC (3.8-10.6) k/uL Hgb (11.4-16.0) gm/dL MCHC (31.0-37.0) g/dL RDW (11.5-15.5) % Blast Cells % % Neutrophils # (Manual) (1.3-7.7) k/uL Metamyelocytes # (Man) (0) k/uL Myelocytes # (Manual) (0) k/uL Blast Cells # (Man) (0) k/uL Nucleated RBCs (0-0) /100 WBC ABG pH 7.13 L* (7.35-7.45) ABG pCO2 46 H (35-45) mmHg ABG HCO3 15 L (21-25) mmol/L ABG Total CO2 16 L (19-24) mmol/L Sodium 135 L (137-145) mmol/L Potassium 8.6 H* (3.5-5.1) mmol/L Chloride 109 H (98-107) mmol/L Carbon Dioxide 17 L (22-30) mmol/L BUN 86 H (7-17) mg/dL Creatinine 3.24 H (0.52-1.04) mg/dL Glucose 47 L* (74-99) mg/dL POC Glucose (mg/dL) 60 L (70-110) mg/dL Total Bilirubin 1.4 H (0.2-1.3) mg/dL AST 1420 H (14-36) U/L ALT 1446 H (4-34) U/L Total Protein 5.6 L (6.3-8.2) g/dL Albumin 2.9 L (3.5-5.0) g/dL TSH 9.660 H (0.465-4.680) mIU/L Urine Appearance (Clear) Urine Protein (Negative) Ur Leukocyte Esterase (Negative) Urine WBC (0-5) /hpf Urine Bacteria (None) /hpf Hyaline Casts (0-2) /lpf Urine Mucus (None) /hpf Urine Yeast (Budding) (None) /hpf Urine Opiates Screen (NotDetected) 10/26/24 10/26/24 10/26/24 Range/Units 03:34 04:01 04:43 WBC (3.8-10.6) k/uL Hgb (11.4-16.0) gm/dL MCHC (31.0-37.0) g/dL RDW (11.5-15.5) % Blast Cells % % Neutrophils # (Manual) (1.3-7.7) k/uL Metamyelocytes # (Man) (0) k/uL Myelocytes # (Manual) (0) k/uL Blast Cells # (Man) (0) k/uL Nucleated RBCs (0-0) /100 WBC ABG pH (7.35-7.45) ABG pCO2 (35-45) mmHg ABG HCO3 (21-25) mmol/L ABG Total CO2 (19-24) mmol/L Sodium (137-145) mmol/L Potassium (3.5-5.1) mmol/L Chloride (98-107) mmol/L Carbon Dioxide (22-30) mmol/L BUN (7-17) mg/dL Creatinine (0.52-1.04) mg/dL Glucose (74-99) mg/dL POC Glucose (mg/dL) 216 H 190 H 232 H (70-110) mg/dL Total Bilirubin (0.2-1.3) mg/dL AST (14-36) U/L ALT (4-34) U/L Total Protein (6.3-8.2) g/dL Albumin (3.5-5.0) g/dL TSH (0.465-4.680) mIU/L Urine Appearance (Clear) Urine Protein (Negative) Ur Leukocyte Esterase (Negative) Urine WBC (0-5) /hpf Urine Bacteria (None) /hpf Hyaline Casts (0-2) /lpf Urine Mucus (None) /hpf Urine Yeast (Budding) (None) /hpf Urine Opiates Screen (NotDetected) Diabetes panel 10/26/24 Range/Units 01:54 Sodium 135 L (137-145) mmol/L Potassium 8.6 H* (3.5-5.1) mmol/L Chloride 109 H (98-107) mmol/L Carbon Dioxide 17 L (22-30) mmol/L BUN 86 H (7-17) mg/dL Creatinine 3.24 H (0.52-1.04) mg/dL Glucose 47 L* (74-99) mg/dL Calcium 8.8 (8.4-10.2) mg/dL AST 1420 H (14-36) U/L ALT 1446 H (4-34) U/L Alkaline Phosphatase 111 (38-126) U/L Total Protein 5.6 L (6.3-8.2) g/dL Albumin 2.9 L (3.5-5.0) g/dL Thyroid panel 10/26/24 Range/Units 01:54 TSH 9.660 H (0.465-4.680) mIU/L Calcium panel 10/26/24 Range/Units 01:54 Calcium 8.8 (8.4-10.2) mg/dL Albumin 2.9 L (3.5-5.0) g/dL Pituitary panel 10/26/24 Range/Units 01:54 Sodium 135 L (137-145) mmol/L Potassium 8.6 H* (3.5-5.1) mmol/L Chloride 109 H (98-107) mmol/L Carbon Dioxide 17 L (22-30) mmol/L BUN 86 H (7-17) mg/dL Creatinine 3.24 H (0.52-1.04) mg/dL Glucose 47 L* (74-99) mg/dL Calcium 8.8 (8.4-10.2) mg/dL TSH 9.660 H (0.465-4.680) mIU/L Adrenal panel 10/26/24 Range/Units 01:54 Sodium 135 L (137-145) mmol/L Potassium 8.6 H* (3.5-5.1) mmol/L Chloride 109 H (98-107) mmol/L Carbon Dioxide 17 L (22-30) mmol/L BUN 86 H (7-17) mg/dL Creatinine 3.24 H (0.52-1.04) mg/dL Glucose 47 L* (74-99) mg/dL Calcium 8.8 (8.4-10.2) mg/dL Total Bilirubin 1.4 H (0.2-1.3) mg/dL AST 1420 H (14-36) U/L ALT 1446 H (4-34) U/L Alkaline Phosphatase 111 (38-126) U/L Total Protein 5.6 L (6.3-8.2) g/dL Albumin 2.9 L (3.5-5.0) g/dL
[2024-10-26 06:48] LABS: African American GFR (CKD) 18 (>60 ml/min/1.73 sqM); Albumin 3.6 g/dL (3.5-5.0); Alkaline Phosphatase 155 U/L (38-126); Anion Gap 19 mmol/L; Blood Urea Nitrogen 84 mg/dL (7-17); Calcium 8.6 mg/dL (8.4-10.2); Carbon Dioxide 12 mmol/L (22-30); Chloride 103 mmol/L (98-107); Glucose 321 mg/dL (74-99); Non-African American GFR(CKD) 15 (>60 ml/min/1.73 sqM); Sodium 134 mmol/L (137-145); Total Bilirubin 2.2 mg/dL (0.2-1.3); Total Protein 6.6 g/dL (6.3-8.2)
[2024-10-26 07:05] LABS: Potassium 6.3 mmol/L (3.5-5.1)
[2024-10-26] MEDS: HEPARIN SODIUM 1,000 UN/ML (10ML VL) IV ONE ×2 (07:24→07:28)
--- NOTE | 2024-10-26 07:34 | P.PN ---
Progress Note - Text Preop diagnosis acute chronic renal failure with high potassium Postop same procedure ultrasound-guided 30 cm dialysis catheter placed left femoral approach procedure patient brought to the [facility] left groin was prepped and draped in Prestel manner 1% lidocaine were infiltrated ultrasound- guided micropuncture introduced left femoral vein micropuncture guide was passed and 4 point dilator advanced up the guidewire. Then we passed a regular guidewire dilators were advanced up the guidewire then replaced 30 cm dialysis catheter flushed with heparin saline hep-locked secured with 0 nylon patient tarted the procedure well
[2024-10-26 07:43] LABS: ALT 4016 U/L (4-34); AST 3715 U/L (14-36)
[2024-10-26] MEDS: CALCIUM GLUCONATE IN NACL 1 GM in SALINE 1 100ML.BAG IVPB ONE (08:12)
--- NOTE | 2024-10-26 08:34 | IR ---
EXAMINATION TYPE: IR cvc insert non tunneled DATE OF EXAM: 10/26/2024 7:47 AM COMPARISON: Pre Operative Images if available both CT/MRI or plain film CLINICAL INDICATION: Female, 54 years old with history of Dialysis, 0.3m/40.8919DAP, Lt Gr 12.5F x 30 cm Dialysis jaydon; TECHNIQUE: IR cvc insert non tunneled, multiple fluoroscopic images provided for procedure. Total fluoroscopy time: 0.3 minutes Total submitted images to PACS: 202 DAP: 1298 mGym2 Gycm2 uGym2 cGycm2 or equivalent. FINDINGS: IMPRESSION: 1. Report was generated for administrative purposes only. 2. Please see the operative/procedural note for further details. [facility], , 10/26/2024 8:32 AM
[2024-10-26 09:05] LABS: Anisocytosis Slight; HGB 10.9 gm/dL (11.4-16.0); Hypochromasia Marked; MCH 26.8 pg (25.0-35.0); MCHC 29.6 g/dL (31.0-37.0); MCV 90.5 fL (80.0-100.0); Mean Platelet Volume 10.6; Platelet Count 262 k/uL (150-450); RBC 4.08 m/uL (3.80-5.40); RDW 18.7 % (11.5-15.5)
[2024-10-26 09:15] LABS: Band Neutrophils % 9 %; Metamyelocytes % 5 %; Myelocytes % 5 %; Neutrophils % (M) 65 %; Nucleated Red Blood Cells 36 /100 WBC (0-0); Total Cells Counted 200
[2024-10-26 09:16] LABS: Basophils # (M) 0.12 k/uL (0-0.2); Lymphocytes # (M) 1.36 k/uL (1.0-4.8); Metamyelocytes # (M) 0.62 k/uL (0); Monocytes # (M) 0.74 k/uL (0-1.0); Myelocytes # (M) 0.62 k/uL (0); WBC 12.4 k/uL (3.8-10.6)
[2024-10-26 09:18] LABS: Crenated RBC Present; Poikilocytosis (M) Present; Polychromasia Present
[2024-10-26] MEDS: EPINEPHrine 4 MG in DEXTROSE 5% IN WATER 250 ML IV SCH (09:20)
[2024-10-26 09:25] LABS: Hepatitis B Surface Antigen Nonreactive (Nonreactive)
[2024-10-26] MEDS: PANTOPRAZOLE 40 MG/10 ML VIAL IV SCH (09:37)
[2024-10-26] MEDS: DOPamine DRIP 800 MG in DEXTROSE/WATER 1 250ML.BAG IV SCH (09:38)
--- NOTE | 2024-10-26 10:04 | P.NPCON ---
History of Present Illness - Reason for Consult acute renal failure, hyperkalemia - History of Present Illness Reason for consultation: Acute kidney injury and hyperkalemia History of present illness: Patient is a 54-year-old female seen in renal consultation for acute kidney injury and hyperkalemia. Patient came to the hospital due to altered mental status. Patient is currently intubated. Family is present at bedside. According to the family patient has been feeling nauseous and dizzy for about 2 days. She was also being treated for UTI outpatient but they are unsure of the name of the antibiotic. Patient was found to be hypotensive, bradycardic and hypoxic at home and was subsequently brought to the hospital. Creatinine was 3.24 on admission and is stable at 3.3 today. Patient is oliguric. Baseline creatinine 0.7-0.8 from May and August 2024. Potassium was 8.6 on admission. She was initially taken to the [facility] for pacemaker placement but this was not done as her heart rate improved and blood pressure was in the 120s. Potassium was medically treated and came down to 6.3. Patient had received insulin D50 as well as Lokelma few minutes prior to the 6.3 reading of potassium was drawn. A stat potassium was ordered in the middle of the night around 3 AM but the order was canceled by the lab and thus the delay to 6 AM potassium. She is currently on epinephrine and dopamine drips. Per family she does take Motrin 800 mg 3 times daily. Additionally she was also on potassium supplementation outpatient. Diuretics are currently held. Vital signs - on vasopressor support. General: Resting in bed. HEENT: Intubated. LUNGS: Scattered rhonchi. HEART: Rate and Rhythm are regular. ABDOMEN: Obese. EXTREMITITES: Trace edema. Past Medical History Past Medical History: Asthma, COPD, CVA/TIA, Hyperlipidemia, Hypertension, Osteoarthritis (OA), Pneumonia, Sleep Apnea/CPAP/BIPAP, Thyroid Disorder Additional Past Medical History / Comment(s): RSD dx 2012 lesions on brain,"memory issues" possible MS no definitive dx as of yet, peripheral neuropathy-diogenes feet/legs arms, migraines, murmur, occular hypertension, probably stroke-no residual effects, "top part of heart beats slower that the bottom", no cpap used, uses oxygen all the time 2liters, anemia. no insurance coverage for synthroid. History of Any Multi-Drug Resistant Organisms: None Reported Past Surgical History: Appendectomy, Section, Cholecystectomy, Heart Catheterization, Orthopedic Surgery Additional Past Surgical History / Comment(s): diogenes carpal tunnel, left cubital tunnel, d&c, spinal puncture, rt knee surgery arthroscopic Past Anesthesia/Blood Transfusion Reactions: Motion Sickness Additional Past Anesthesia/Blood Transfusion Reaction / Comment(s): claustrophobia. "has had blood in past,-no reaction" Past Psychological History: Anxiety, Depression Smoking Status: Current every day smoker - Past Family History Father Family Medical History: Cancer Brother(s) Family Medical History: Diabetes Mellitus Mother Family Medical History: No Reported History Medications and Allergies Home Medications Medication Instructions Recorded Confirmed Type Butalb/APAP/Caff 50-325-40Mg 1 tab PO Q8HR PRN 05/22/17 04/30/23 History [Fioricet 50-325-40] DULoxetine HCL [Cymbalta] 60 mg PO HS 05/22/17 04/30/23 History Aspirin EC [Ecotrin Low Dose] 81 mg PO DAILY 06/06/18 04/30/23 History Loratadine [Claritin] 10 mg PO DAILY 06/06/18 04/30/23 History HYDROcodone/APAP 10-325MG [[place] 1 tab PO TID PRN 08/18/19 04/30/23 History 10-325] ARIPiprazole [Abilify] 5 mg PO HS 04/27/20 04/30/23 History Atorvastatin [Lipitor] 20 mg PO HS 04/27/20 04/30/23 History Metoprolol Tartrate [Lopressor] 12.5 mg PO HS 04/27/20 04/30/23 History Venlafaxine HCl ER [Effexor XR] 37.5 mg PO DAILY 04/27/20 04/30/23 History Ferrous Sulfate [Iron (65 MG 325 mg PO BID 04/21/21 04/30/23 History Elemental)] Potassium Chloride [Potassium 10 meq PO DAILY 04/21/21 04/30/23 History Chloride ER] rOPINIRole HCL [Requip] 1 mg PO HS 04/21/21 04/30/23 History tiZANidine [Zanaflex] 4 mg PO BID PRN 04/21/21 04/30/23 History Albuterol Sulfate [Albuterol 2 puff PO RT-Q4H PRN 05/29/21 04/30/23 History Sulfate Hfa] Fluticasone/Umeclidin/Vilanter 1 puff INHALATION RT-DAILY 12/05/21 04/30/23 History [Trelegy Ellipta 100-62.5-25] Furosemide [Lasix] 40 mg PO DAILY 12/05/21 04/30/23 History Ibuprofen [Motrin] 800 mg PO Q8H PRN 12/05/21 04/30/23 History Rizatriptan Benzoate [Rizatriptan] 10 mg PO DAILY PRN 12/05/21 04/30/23 History metOLazone [Zaroxolyn] 5 mg PO DAILY 12/05/21 04/30/23 History Topiramate [Topamax] 50 mg PO BID 04/25/22 04/30/23 History Verapamil HCl [Verapamil ER] 180 mg PO DAILY 04/25/22 04/30/23 History ALPRAZolam [Xanax] 0.25 mg PO HS PRN 04/30/23 04/30/23 History DULoxetine HCL [Cymbalta] 30 mg PO HS 04/30/23 04/30/23 History Exemestane [Aromasin] 25 mg PO DAILY 04/30/23 04/30/23 History Ondansetron [Zofran] 4 mg PO Q8HR PRN 04/30/23 04/30/23 History Phentermine HCl [Adipex-P] 37.5 mg PO DAILY 04/30/23 04/30/23 History Zolpidem [Ambien] 10 mg PO HS PRN 04/30/23 04/30/23 History amLODIPine BESYLATE/BENAZEPRIL 1 cap PO DAILY 04/30/23 04/30/23 History [amLODIPine BESYLATE/BENAZEPRIL 5-20 mg] Budesonide-Formot 160-4.5 Mcg 2 puff INHALATION RT-BID #1 inh 05/02/23 Rx [Symbicort 160-4.5 Mcg Inhaler] predniSONE 10 mg PO DIRECTED #30 tab 05/02/23 Rx Allergies Allergy/AdvReac Type Severity Reaction Status Date / Time morphine Allergy Itching/hiv Verified 10/26/24 00:31 es/sob peach Allergy Rash/Hives Verified 10/26/24 00:31 pear Allergy Unknown Verified 10/26/24 00:31 Sulfa (Sulfonamide Allergy RAPID Verified 10/26/24 00:31 Antibiotics) HEART RATE AND HIVES Physical Exam Vitals: Vital Signs Temp Pulse Resp BP Pulse Ox FiO2 10/26/24 06:30 81 0 L 76/53 96 10/26/24 06:22 100 10/26/24 06:20 70 0 L 76/53 96 10/26/24 06:10 79 0 L 105/47 96 10/26/24 06:00 85 17 117/55 97 10/26/24 05:50 84 21 117/55 94 L 10/26/24 05:40 83 18 117/63 94 L 10/26/24 05:30 83 23 109/56 92 L 10/26/24 05:20 81 21 109/56 92 L 10/26/24 05:10 81 21 104/62 89 L 10/26/24 05:00 82 15 109/50 88 L 10/26/24 04:50 82 24 109/50 89 L 10/26/24 04:40 97.5 F L 82 24 97/69 90 L 10/26/24 04:37 100 10/26/24 04:30 84 6 L 112/59 90 L 10/26/24 04:25 82 10/26/24 04:20 81 0 L 112/59 90 L 10/26/24 04:15 81 10/26/24 04:10 80 11 L 108/56 90 L 10/26/24 04:00 100 10/26/24 02:44 97.8 F 10/26/24 02:40 24 62/48 92 L 10/26/24 02:30 24 96/46 96 10/26/24 02:25 24 90/43 94 L 10/26/24 02:05 74 22 60/39 92 L 10/26/24 02:00 72 22 96/73 92 L 10/26/24 01:40 74 22 105/77 92 L 10/26/24 01:24 36 L 100 10/26/24 01:20 35 L 22 72/45 92 L 10/26/24 01:10 39 L 22 84/68 92 L 10/26/24 01:05 33 L 12/02/24 01:00 40 L 22 86/70 89 L 10/26/24 00:55 45 L 12 117/92 88 L 10/26/24 00:50 46 L 10 L 133/93 85 L 10/26/24 00:45 48 L 8 L 122/84 84 L 10/26/24 00:35 64 8 L 117/65 85 L 10/26/24 00:33 8 L 10/26/24 00:30 10 L 10/26/24 00:27 10 L 10/26/24 00:24 46 L 12 136/111 83 L Intake and Output 10/25/24 10/26/24 10/26/24 22:59 06:59 14:59 Intake Total 814.862 53.125 Output Total 10 Balance 804.862 53.125 Intake: IV 100 Intake, IV Titration 714.862 53.125 Amount Dextrose 5% in Water 1, 600 000 ml @ 200 mls/hr IV . Q5H45M SUMEET with Sodium Bicarb (1 Meq/ml) 150 ml Rx#:[id number] EPINEPHrine 4 mg In 13.991 Dextrose 5% in Water 250 ml @ 0.03 MCG/KG/MIN 16. 46 mls/hr IV .[id number] ONE Rx#:[id number] propofoL 1,000 mg In 100.871 53.125 Empty Bag 1 bag @ 15 MCG/ KG/MIN 13.064 mls/hr IV . Q7H40M SUMEET Rx#:[id number] Output: Urine 10 Other: Voiding Method Indwelling Catheter Weight 145.15 kg Results - Lab Results Most recent lab results ABG pH 7.13 (7.35-7.45) L* 10/26/24 03:33 ABG pCO2 46 mmHg (35-45) H 10/26/24 03:33 ABG pO2 91 mmHg (83-108) 10/26/24 03:33 ABG HCO3 15 mmol/L (21-25) L 10/26/24 03:33 ABG O2 Saturation 95.0 % (94-97) 10/26/24 03:33 Calcium 8.6 mg/dL (8.4-10.2) 10/26/24 06:04 10/26/24 01:54 10/26/24 06:04 Assessment and Plan Plan: Assessment: 1. Acute kidney injury secondary to ATN secondary to bradycardia, hypotension further worsen with the use of NSAIDs and diuretics. Baseline creatinine 0.7- 0.8 and 3.31 today. Oliguric. 2. Hyperkalemia secondary to acute kidney injury, acidosis, NSAIDs, potassium supplementation. 3. Bradycardia secondary to hyperkalemia. 4. Metabolic acidosis secondary to acute kidney injury. 5. Shock liver. 6. Recent right knee surgery with subsequent fall. Will need further intervention in the future. Plan: Maintain bicarb drip. Stat potassium level pending. Patient just received calcium gluconate. Dialysis catheter just placed by vascular surgery. Plan for emergent hemodialysis today. Monitor for renal recovery. Repeat BMP this evening. Wean FiO2 and vasopressors. Follow-up echocardiogram. Check renal ultrasound. Avoid nephrotoxins. Case discussed with cardiology as well as family present at bedside. Thank you for the consultation. I will continue to follow the patient with you during her hospital stay.
[2024-10-26] MEDS: IPRATROPIUM-ALBUTEROL 3 ML NEB INHALATION SCH (10:08)
[2024-10-26 10:44] LABS: Hepatitis B Surface AB- Quant 3.5 mIU/mL
[2024-10-26 11:41] LABS: ABG PH 7.14 (7.35-7.45); Allen Test Performed? Yes
[2024-10-26 11:42] LABS: ABG Base Excess -11.1 mmol/L; ABG HCO3 18 mmol/L (21-25); ABG PCO2 53 mmHg (35-45); ABG PO2 87 mmHg (83-108); ABG TCO2 20 mmol/L (19-24)
[2024-10-26 12:33] LABS: Glucose,Whole Blood 336 mg/dL (70-110)
--- NOTE | 2024-10-26 12:44 | CA ---
Transthoracic Echo Report Name: Kim So Age: 54 Gender: F : 1970 Exam Date: 10/26/2024 08:12 Exam Location: [facility] Ht (in): 64 Wt (lb): 320 Ordering Physician: Essie Calderon MD ([id number]) Attending/Referring Phys: [employer] Suzette Lucio RDCS Procedure CPT: Indications: Respiratory Failure Cardiac Hx: Technical Quality: Fair Contrast 1: Total Dose (mL): Contrast 2: Total Dose (mL): MEASUREMENTS (Male / Female) Normal Values 2D ECHO LV Diastolic Diameter PLAX 4.8 cm 4.2 - 5.9 / 3.9 - 5.3 cm LV Systolic Diameter PLAX 3.2 cm IVS Diastolic Thickness 1.2 cm 0.6 - 1.0 / 0.6 - 0.9 cm LVPW Diastolic Thickness 1.3 cm 0.6 - 1.0 / 0.6 - 0.9 cm LV Relative Wall Thickness 0.5 RV Internal Dim ED PLAX 3.5 cm LA Systolic Diameter LX 4.5 cm 3.0 - 4.0 / 2.7 - 3.8 cm LV Diastolic Volume MOD BP 112.2 cm??? 67 - 155 / 56 - 104 cm??? LV Systolic Volume MOD BP 47.8 cm??? - 58 / 19 - 49 cm??? LV Ejection Fraction MOD BP 57.4 % >= 55 % LV Cardiac Index MOD BP 2134.8 cm???/min???m??? LV Diastolic Volume MOD 4C 118.6 cm??? LV Systolic Volume MOD 4C 54.9 cm??? LV Ejection Fraction MOD 4C 53.7 % LV Cardiac Index MOD 4C 2113.1 cm???/min???m??? LV Diastolic Length 4C 7.8 cm LV Systolic Length 4C 6.5 cm LV Diastolic Volume MOD 2C 104.9 cm??? LV Systolic Volume MOD 2C 35.8 cm??? LV Ejection Fraction MOD 2C 65.9 % LV Cardiac Index MOD 2C 2290.3 cm???/min???m??? LV Diastolic Length 2C 7.2 cm LV Systolic Length 2C 5.6 cm LA Volume 49.6 cm??? 18 - 58 / 22 - 52 cm??? LA Volume Index 18.7 cm???/m??? 16 - 28 cm???/m??? M-MODE Aortic Root Diameter MM 3.1 cm AV Cusp Separation MM 1.9 cm DOPPLER AV Peak Velocity 238.5 cm/s AV Peak Gradient 22.7 mmHg AV Mean Velocity 118.5 cm/s AV Mean Gradient 7.8 mmHg AV Velocity Time Integral 39.9 cm MV Area PHT 2.5 cm??? Mitral E Point Velocity 129.8 cm/s Mitral A Point Velocity 125.5 cm/s Mitral E to A Ratio 1.0 MV Deceleration Time 297.9 ms TR Peak Velocity 393.8 cm/s TR Peak Gradient 62.0 mmHg Right Ventricular Systolic Press 66.1 mmHg FINDINGS Left Ventricle Left ventricular ejection fraction is estimated at 60-65 %. Left ventricular cavity size normal. Mildly increased septal wall thickness. Moderately increased posterior wall thickness. Mildly increased left ventricular diastolic volume. Right Ventricle Mild right ventricular dilatation. Severe pulmonary hypertension. Right ventricular systolic pressure estimated at 66 mm hg. Right Atrium Normal right atrial size. No right atrial thrombus or mass seen. Left Atrium Moderately increased left atrial diameter. No left atrial thrombus or mass present. Mitral Valve Structurally normal mitral valve. No mitral stenosis, regurgitation or prolapse. Aortic Valve Trileaflet aortic valve. No aortic valve stenosis or regurgitation. Tricuspid Valve Structurally normal tricuspid valve. Mild tricuspid regurgitation. Pulmonic Valve Pulmonic valve not well visualized. Pericardium No pericardial or pleural effusion. Aorta Normal size aortic root and proximal ascending aorta. CONCLUSIONS Left ventricular ejection fraction 60-65% Mild increased left ventricular wall thickness RVSP 66 Mild tricuspid regurgitation No pericardial effusion Previewed by: Dr. [place]ak [place] DO (Electronically Signed) Final Date: 26 October 2024 12:43
[2024-10-26] MEDS ORDERED: DEXTROSE 50% SYRINGE 50 ML IVP PRN ×2 (13:12)
[2024-10-26] MEDS: INSULIN ASPART (NovoLOG) 100 UNIT/ML VIAL SQ SCH (13:53)
--- NOTE | 2024-10-26 14:40 | P.HPIM ---
History of Present Illness H&P Date: 10/26/24 This is a 54-year-old female with past medical history significant for recent knee surgery proximately within the last 3 months with fall postoperatively 1 week ago, osteoarthritis, treated for UTI outpatient last week with Macrobid, COPD, migraines, hypertension, osteoarthritis, morbid obesity, sleep apnea, anxiety, depression, nicotine dependence and multiple other medical issues brought into the ER via EMS with reports of confusion, hallucinations, hypoxia, hypotension. Family reports patient nauseated and dizzy since Saturday night. on EMS arrival, reported systolic blood pressure of 80s, O2 sats of 70% on room air, placed on nonrebreather, EKG reported severe bradycardia with heart rates in the 20s and 30s. ER reports ,on arrival patient was alert and oriented to person and place, reported she had taken an additional [place] as well as an additional Flexeril for knee pain. Creatinine 3.24 on admission, currently at 3.3, baseline 0.7. Hyperkalemic cocktail administered for potassium at 8.6 , currently down to 6.3. EKG reported wide-complex bradycardia, junctional. ABGs reported pH of 7.14, pCO2 53, pO2 87, bicarb 18, total CO2 20 O2 sat 94 with a base excess of -11.1 on 70% FiO2. patient was intubated, taken to the [facility] for transvenous pacer, but spontaneously converted to sinus rhythm. Currently ventilator dependent with FiO2 100%/+8 with PEEP. Maintained on epinephrine and dopamine. Continues on bicarb drip. chest x-ray reported cardiomegaly, worsening pulmonary edema versus massive pneumonia ,antibiotics initiated. Hemoglobin A1c 6.0. T. bili 2.2, AST 3715, ALT 4016, alk phos 155. Hepatitis panel in progress. troponin negative x 1. TSH 9.660, free T4 1.35. Review of Systems Review of systems unable to obtain as patient intubated, sedated Past Medical History Past Medical History: Asthma, COPD, CVA/TIA, Hyperlipidemia, Hypertension, Osteoarthritis (OA), Pneumonia, Sleep Apnea/CPAP/BIPAP, Thyroid Disorder Additional Past Medical History / Comment(s): RSD dx 2012 lesions on brain,"memory issues" possible MS no definitive dx as of yet, peripheral neuropathy-diogenes feet/legs arms, migraines, murmur, occular hypertension, probably stroke-no residual effects, "top part of heart beats slower that the bottom", no cpap used, uses oxygen all the time 2liters, anemia. no insurance coverage for synthroid. History of Any Multi-Drug Resistant Organisms: None Reported Past Surgical History: Appendectomy, Section, Cholecystectomy, Heart Catheterization, Orthopedic Surgery Additional Past Surgical History / Comment(s): diogenes carpal tunnel, left cubital tunnel, d&c, spinal puncture, rt knee surgery arthroscopic Past Anesthesia/Blood Transfusion Reactions: Motion Sickness Additional Past Anesthesia/Blood Transfusion Reaction / Comment(s): claustrophobia. "has had blood in past,-no reaction" Past Psychological History: Anxiety, Depression Smoking Status: Current every day smoker - Past Family History Father Family Medical History: Cancer Brother(s) Family Medical History: Diabetes Mellitus Mother Family Medical History: No Reported History Medications and Allergies Home Medications Medication Instructions Recorded Confirmed Type Butalb/APAP/Caff 50-325-40Mg 1 tab PO DAILY 05/22/17 10/26/24 History [Fioricet 50-325-40] DULoxetine HCL [Cymbalta] 60 mg PO HS 05/22/17 10/26/24 History Aspirin EC [Ecotrin Low Dose] 81 mg PO DAILY 06/06/18 10/26/24 History Loratadine [Claritin] 10 mg PO DAILY 06/06/18 10/26/24 History HYDROcodone/APAP 10-325MG [[place] 1 tab PO TID PRN 08/18/19 10/26/24 History 10-325] ARIPiprazole [Abilify] 5 mg PO HS 04/27/20 10/26/24 History Atorvastatin [Lipitor] 20 mg PO DAILY 04/27/20 10/26/24 History Metoprolol Tartrate [Lopressor] 25 mg PO BID 04/27/20 10/26/24 History Venlafaxine HCl ER [Effexor XR] 37.5 mg PO DAILY 04/27/20 10/26/24 History Potassium Chloride [Potassium 10 meq PO DAILY 04/21/21 10/26/24 History Chloride ER] rOPINIRole HCL [Requip] 1 mg PO DAILY PRN 04/21/21 10/26/24 History tiZANidine [Zanaflex] 4 mg PO TID 04/21/21 10/26/24 History Albuterol Sulfate [Albuterol 2 puff PO RT-QID PRN 05/29/21 10/26/24 History Sulfate Hfa] Fluticasone/Umeclidin/Vilanter 1 puff INHALATION RT-DAILY 12/05/21 10/26/24 History [Trelegy Ellipta 100-62.5-25] Furosemide [Lasix] 40 mg PO DAILY 12/05/21 10/26/24 History Ibuprofen [Motrin] 800 mg PO BID PRN 12/05/21 10/26/24 History metOLazone [Zaroxolyn] 5 mg PO DAILY 12/05/21 10/26/24 History Verapamil HCl [Verapamil ER] 180 mg PO DAILY 04/25/22 10/26/24 History ALPRAZolam [Xanax] 0.25 mg PO HS PRN 04/30/23 10/26/24 History DULoxetine HCL [Cymbalta] 30 mg PO HS 04/30/23 10/26/24 History Exemestane [Aromasin] 25 mg PO DAILY 04/30/23 10/26/24 History Zolpidem [Ambien] 10 mg PO HS PRN 04/30/23 10/26/24 History amLODIPine BESYLATE/BENAZEPRIL 1 cap PO DAILY 04/30/23 10/26/24 History [amLODIPine BESYLATE/BENAZEPRIL 5-20 mg] Albuterol Nebulized [Ventolin 2.5 mg INHALATION RT-QID 10/26/24 10/26/24 History Nebulized] Fluticasone Propion/Salmeterol 1 puff INHALATION RT-BID 10/26/24 10/26/24 History [Fluticasone-Salmeterol 250-50] Levothyroxine Sodium [Synthroid] 50 mcg PO DAILY 10/26/24 10/26/24 History Nitrofurantoin Monohyd/M-Cryst 100 mg PO Q12HR 10/26/24 10/26/24 History [Macrobid] Semaglutide [Wegovy] 1 mg SQ Q7D 10/26/24 10/26/24 History buPROPion XL [Wellbutrin XL] 150 mg PO DAILY 10/26/24 10/26/24 History Allergies Allergy/AdvReac Type Severity Reaction Status Date / Time morphine Allergy Itching/hiv Verified 10/26/24 13:43 es/sob peach Allergy Rash/Hives Verified 10/26/24 13:43 pear Allergy Unknown Verified 10/26/24 13:43 Sulfa (Sulfonamide Allergy RAPID Verified 10/26/24 13:43 Antibiotics) HEART RATE AND HIVES Physical Exam Vitals: Vital Signs Temp Pulse Resp BP Pulse Ox FiO2 10/26/24 12:20 92 26 H 122/62 98 70 10/26/24 12:10 92 24 111/64 98 70 10/26/24 12:05 90 10/26/24 12:00 92 24 118/55 98 70 10/26/24 11:54 92 10/26/24 11:50 90 24 118/55 98 70 10/26/24 11:44 70 10/26/24 11:40 91 22 114/52 98 70 10/26/24 11:30 91 24 112/52 98 70 10/26/24 11:20 90 24 112/52 98 70 10/26/24 11:10 90 24 105/57 98 70 10/26/24 11:00 90 24 106/58 98 70 10/26/24 10:50 90 24 106/58 98 70 10/26/24 10:40 90 22 109/55 100 70 10/26/24 10:30 90 22 115/57 100 100 10/26/24 10:20 89 22 115/57 100 100 10/26/24 10:11 100 10/26/24 10:10 90 24 120/54 100 10 10/26/24 10:08 90 10/26/24 10:00 90 22 118/53 100 98 10/26/24 09:50 90 24 118/53 100 98 10/26/24 09:40 90 22 115/51 100 98 10/26/24 09:30 90 22 121/58 100 98 10/26/24 09:20 90 26 H 121/58 100 100 10/26/24 09:10 90 24 124/55 100 100 10/26/24 09:00 90 22 122/61 100 100 10/26/24 08:50 89 22 122/61 100 100 10/26/24 08:40 90 24 119/58 100 100 10/26/24 08:30 89 22 122/57 100 100 10/26/24 08:20 89 22 122/57 99 100 10/26/24 08:10 88 22 125/53 99 100 10/26/24 08:00 22 133/56 96 100 10/26/24 07:50 22 100 100 10/26/24 07:40 22 100 100 10/26/24 07:30 22 100 100 10/26/24 06:40 111/57 10/26/24 06:30 81 0 L 76/53 96 10/26/24 06:22 100 10/26/24 06:20 70 0 L 76/53 96 10/26/24 06:10 79 0 L 105/47 96 10/26/24 06:00 85 17 117/55 97 10/26/24 05:50 84 21 117/55 94 L 10/26/24 05:40 83 18 117/63 94 L 10/26/24 05:30 83 23 109/56 92 L 10/26/24 05:20 81 21 109/56 92 L 10/26/24 05:10 81 21 104/62 89 L 10/26/24 05:00 82 15 109/50 88 L 10/26/24 04:50 82 24 109/50 89 L 10/26/24 04:40 97.5 F L 82 24 97/69 90 L 10/26/24 04:30 84 6 L 112/59 90 L 10/26/24 04:25 82 10/26/24 04:20 81 0 L 112/59 90 L 10/26/24 04:15 81 10/26/24 04:10 80 11 L 108/56 90 L 10/26/24 04:00 100 10/26/24 02:44 97.8 F 10/26/24 02:40 24 62/48 92 L 10/26/24 02:30 24 96/46 96 10/26/24 02:25 24 90/43 94 L 10/26/24 02:05 74 22 60/39 92 L 10/26/24 02:00 72 22 96/73 92 L 10/26/24 01:40 74 22 105/77 92 L 10/26/24 01:24 36 L 100 10/26/24 01:20 35 L 22 72/45 92 L 10/26/24 01:10 39 L 22 84/68 92 L 10/26/24 01:05 33 L 10/26/24 01:00 40 L 22 86/70 89 L 10/26/24 00:55 45 L 12 117/92 88 L 10/26/24 00:50 46 L 10 L 133/93 85 L 10/26/24 00:45 48 L 8 L 122/84 84 L 10/26/24 00:35 64 8 L 117/65 85 L 10/26/24 00:33 8 L 10/26/24 00:30 10 L 10/26/24 00:27 10 L 10/26/24 00:24 46 L 12 136/111 83 L Intake and Output 10/25/24 10/26/24 10/26/24 22:59 06:59 14:59 Intake Total 021.339 4864.826 Output Total 10 40 Balance 445.312 5444.826 Intake: IV 100 6 Pressure Bag 6 Intake, IV Titration 703.446 4300.826 Amount Calcium Gluconate in NaCl 100 1 gm In Saline 1 100ml. bag @ 100 mls/hr IVPB ONCE ONE Rx#:[id number] Dextrose 5% in Water 1, 600 1000 000 ml @ 200 mls/hr IV . Q5H45M SUMEET with Sodium Bicarb (1 Meq/ml) 150 ml Rx#:[id number] EPINEPHrine 4 mg In 58.786 Dextrose 5% in Water 250 ml @ 0.03 MCG/KG/MIN 16. 329 mls/hr IV .[id number] SUMEET Rx#:[id number] EPINEPHrine 4 mg In 13.991 Dextrose 5% in Water 250 ml @ 0.03 MCG/KG/MIN 16. 46 mls/hr IV .[id number] ONE Rx#:[id number] Midazolam HCl 50 mg In 8.55 Sodium Chloride 0.9% 40 ml @ 1 MG/HR 1 mls/hr IV .Q24H SUMEET Rx#:[id number] propofoL 1,000 mg In 100.871 148.490 Empty Bag 1 bag @ 15 MCG/ KG/MIN 13.064 mls/hr IV . Q7H40M SUMEET Rx#:[id number] Output: Urine 10 40 Stool 0 Other: Voiding Method Indwelling Catheter # Bowel Movements 0 Weight 145.15 kg 145.15 kg ABP, PAP, CO, CI - Last 8 Hours Arterial Blood Pressure 126/54 Arterial Blood Pressure 123/53 Arterial Blood Pressure 121/53 Arterial Blood Pressure 123/53 Arterial Blood Pressure 114/50 Arterial Blood Pressure 110/49 Arterial Blood Pressure 108/49 Arterial Blood Pressure 108/48 Arterial Blood Pressure 107/48 Arterial Blood Pressure 107/48 Arterial Blood Pressure 106/52 PHYSICAL EXAM: VITAL SIGNS: As above GENERAL: Intubated and sedated. HEENT: Normocephalic, atraumatic ,Conjunctivae normal. NECK: Supple, No JVD. CARDIOVASCULAR: S1, S2 regular.No murmur. RESPIRATION: Unlabored, equal air entry, clear to auscultation. ABDOMEN: Soft, nontender,obese, nondistended ,positive Bowel sounds. LEGS: No edema, no calf tenderness, positive DP pulses. NERVOUS SYSTEM: unable to evaluate as patient sedated and intubated Skin: Warm and dry, no rash Results CBC & Chem 7: 10/29/24 06:00 10/29/24 06:00 Labs: Abnormal Lab Results - Last 24 Hours (Table) 10/26/24 10/26/24 10/26/24 Range/Units 01:20 01:20 01:54 WBC (3.8-10.6) k/uL Hgb (11.4-16.0) gm/dL MCHC (31.0-37.0) g/dL RDW (11.5-15.5) % Neutrophils # (Manual) (1.3-7.7) k/uL Metamyelocytes # (Man) (0) k/uL Myelocytes # (Manual) (0) k/uL Nucleated RBCs (0-0) /100 WBC ABG pH (7.35-7.45) ABG pCO2 (35-45) mmHg ABG HCO3 (21-25) mmol/L ABG Total CO2 (19-24) mmol/L Sodium 135 L (137-145) mmol/L Potassium 8.6 H* (3.5-5.1) mmol/L Chloride 109 H (98-107) mmol/L Carbon Dioxide 17 L (22-30) mmol/L BUN 86 H (7-17) mg/dL Creatinine 3.24 H (0.52-1.04) mg/dL Glucose 47 L* (74-99) mg/dL POC Glucose (mg/dL) (70-110) mg/dL Total Bilirubin 1.4 H (0.2-1.3) mg/dL AST 1420 H (14-36) U/L ALT 1446 H (4-34) U/L Alkaline Phosphatase (38-126) U/L Total Protein 5.6 L (6.3-8.2) g/dL Albumin 2.9 L (3.5-5.0) g/dL TSH 9.660 H (0.465-4.680) mIU/L Urine Appearance Cloudy H (Clear) Urine Protein 1+ H (Negative) Ur Leukocyte Esterase Small H (Negative) Urine WBC 8 H (0-5) /hpf Urine Bacteria Rare H (None) /hpf Hyaline Casts 19 H (0-2) /lpf Urine Mucus Rare H (None) /hpf Urine Yeast (Budding) Rare H (None) /hpf Urine Opiates Screen Detected H (NotDetected) 10/26/24 10/26/24 10/26/24 Range/Units 01:54 02:35 03:33 WBC 12.4 H (3.8-10.6) k/uL Hgb 10.9 L (11.4-16.0) gm/dL MCHC 29.6 L (31.0-37.0) g/dL RDW 18.7 H (11.5-15.5) % Neutrophils # (Manual) 9.10 H (1.3-7.7) k/uL Metamyelocytes # (Man) 0.62 H (0) k/uL Myelocytes # (Manual) 0.62 H (0) k/uL Nucleated RBCs 36 H (0-0) /100 WBC ABG pH 7.13 L* (7.35-7.45) ABG pCO2 46 H (35-45) mmHg ABG HCO3 15 L (21-25) mmol/L ABG Total CO2 16 L (19-24) mmol/L Sodium (137-145) mmol/L Potassium (3.5-5.1) mmol/L Chloride (98-107) mmol/L Carbon Dioxide (22-30) mmol/L BUN (7-17) mg/dL Creatinine (0.52-1.04) mg/dL Glucose (74-99) mg/dL POC Glucose (mg/dL) 60 L (70-110) mg/dL Total Bilirubin (0.2-1.3) mg/dL AST (14-36) U/L ALT (4-34) U/L Alkaline Phosphatase (38-126) U/L Total Protein (6.3-8.2) g/dL Albumin (3.5-5.0) g/dL TSH (0.465-4.680) mIU/L Urine Appearance (Clear) Urine Protein (Negative) Ur Leukocyte Esterase (Negative) Urine WBC (0-5) /hpf Urine Bacteria (None) /hpf Hyaline Casts (0-2) /lpf Urine Mucus (None) /hpf Urine Yeast (Budding) (None) /hpf Urine Opiates Screen (NotDetected) 10/26/24 10/26/24 10/26/24 Range/Units 03:34 04:01 04:43 WBC (3.8-10.6) k/uL Hgb (11.4-16.0) gm/dL MCHC (31.0-37.0) g/dL RDW (11.5-15.5) % Neutrophils # (Manual) (1.3-7.7) k/uL Metamyelocytes # (Man) (0) k/uL Myelocytes # (Manual) (0) k/uL Nucleated RBCs (0-0) /100 WBC ABG pH (7.35-7.45) ABG pCO2 (35-45) mmHg ABG HCO3 (21-25) mmol/L ABG Total CO2 (19-24) mmol/L Sodium (137-145) mmol/L Potassium (3.5-5.1) mmol/L Chloride (98-107) mmol/L Carbon Dioxide (22-30) mmol/L BUN (7-17) mg/dL Creatinine (0.52-1.04) mg/dL Glucose (74-99) mg/dL POC Glucose (mg/dL) 216 H 190 H 232 H (70-110) mg/dL Total Bilirubin (0.2-1.3) mg/dL AST (14-36) U/L ALT (4-34) U/L Alkaline Phosphatase (38-126) U/L Total Protein (6.3-8.2) g/dL Albumin (3.5-5.0) g/dL TSH (0.465-4.680) mIU/L Urine Appearance (Clear) Urine Protein (Negative) Ur Leukocyte Esterase (Negative) Urine WBC (0-5) /hpf Urine Bacteria (None) /hpf Hyaline Casts (0-2) /lpf Urine Mucus (None) /hpf Urine Yeast (Budding) (None) /hpf Urine Opiates Screen (NotDetected) 10/26/24 10/26/24 10/26/24 Range/Units 06:04 09:09 11:30 WBC (3.8-10.6) k/uL Hgb (11.4-16.0) gm/dL MCHC (31.0-37.0) g/dL RDW (11.5-15.5) % Neutrophils # (Manual) (1.3-7.7) k/uL Metamyelocytes # (Man) (0) k/uL Myelocytes # (Manual) (0) k/uL Nucleated RBCs (0-0) /100 WBC ABG pH 7.14 L* (7.35-7.45) ABG pCO2 53 H (35-45) mmHg ABG HCO3 18 L (21-25) mmol/L ABG Total CO2 (19-24) mmol/L Sodium 134 L (137-145) mmol/L Potassium 6.3 H* 6.2 H* (3.5-5.1) mmol/L Chloride (98-107) mmol/L Carbon Dioxide 12 L (22-30) mmol/L BUN 84 H (7-17) mg/dL Creatinine 3.31 H (0.52-1.04) mg/dL Glucose 321 H (74-99) mg/dL POC Glucose (mg/dL) (70-110) mg/dL Total Bilirubin 2.2 H (0.2-1.3) mg/dL AST 3715 H (14-36) U/L ALT 4016 H (4-34) U/L Alkaline Phosphatase 155 H (38-126) U/L Total Protein (6.3-8.2) g/dL Albumin (3.5-5.0) g/dL TSH (0.465-4.680) mIU/L Urine Appearance (Clear) Urine Protein (Negative) Ur Leukocyte Esterase (Negative) Urine WBC (0-5) /hpf Urine Bacteria (None) /hpf Hyaline Casts (0-2) /lpf Urine Mucus (None) /hpf Urine Yeast (Budding) (None) /hpf Urine Opiates Screen (NotDetected) 10/26/24 Range/Units 12:32 WBC (3.8-10.6) k/uL Hgb (11.4-16.0) gm/dL MCHC (31.0-37.0) g/dL RDW (11.5-15.5) % Neutrophils # (Manual) (1.3-7.7) k/uL Metamyelocytes # (Man) (0) k/uL Myelocytes # (Manual) (0) k/uL Nucleated RBCs (0-0) /100 WBC ABG pH (7.35-7.45) ABG pCO2 (35-45) mmHg ABG HCO3 (21-25) mmol/L ABG Total CO2 (19-24) mmol/L Sodium (137-145) mmol/L Potassium (3.5-5.1) mmol/L Chloride (98-107) mmol/L Carbon Dioxide (22-30) mmol/L BUN (7-17) mg/dL Creatinine (0.52-1.04) mg/dL Glucose (74-99) mg/dL POC Glucose (mg/dL) 336 H (70-110) mg/dL Total Bilirubin (0.2-1.3) mg/dL AST (14-36) U/L ALT (4-34) U/L Alkaline Phosphatase (38-126) U/L Total Protein (6.3-8.2) g/dL Albumin (3.5-5.0) g/dL TSH (0.465-4.680) mIU/L Urine Appearance (Clear) Urine Protein (Negative) Ur Leukocyte Esterase (Negative) Urine WBC (0-5) /hpf Urine Bacteria (None) /hpf Hyaline Casts (0-2) /lpf Urine Mucus (None) /hpf Urine Yeast (Budding) (None) /hpf Urine Opiates Screen (NotDetected) Assessment and Plan Assessment: Bradycardia, severe, currently sinus Hyperkalemia secondary to NSAIDs, potassium and Hypotension maintained on epinephrine and dopamine Acute on chronic hypoxic respiratory failure, wears 2 L nasal cannula at home, mechanical ventilator dependent Acute renal failure secondary to ATN, related to all the above, requiring emergent hemodialysis Shock liver Metabolic acidosis, maintained on bicarb drip Recent knee surgery, status post fall postoperative Recent UTI, treated outpatient with Macrobid last week Alpha-1 antitrypsin deficiency, history of Obstructive sleep apnea, wears CPAP at night History of pulmonary hypertension Ongoing nicotine dependence, marijuana edibles, and history of vaping Hypertension Hyperlipidemia Osteoarthritis Morbid obesity, BMI 55 Anxiety Depression Chronic peripheral neuropathy Chronic back pain History of Migraines, chronic Plan: Continue current medications and ,monitoring and symptomatic treatment. Temporary permacath placed, emergent hemodialysis initiation pending as per nephrology. ICU/vent management as per analytics senior manager. Neurology consult in place. prognosis guarded given multiple complex medical issues. The impression and plan of care has been dictated as directed. : I performed a history and examination of this patient, discussed the same with the dictator. I agree with the dictator's note ,documented as a scribe. Any additional findings or plans will be noted.
--- NOTE | 2024-10-26 15:15 | US ---
EXAMINATION TYPE: US kidneys/renal and bladder DATE OF EXAM: 10/26/2024 COMPARISON: NONE CLINICAL INDICATION: Female, 54 years old with history of GREG; . TECHNIQUE: Grayscale imaging of the bilateral kidneys and urinary bladder: FINDINGS: Educational Psychology Teacher notes: Exam limitations due to body habitus. EXAM MEASUREMENTS: Right Kidney: 11.4 x 5.6 x 6.1 cm Left Kidney: 12.2 x 6.9 x 4.6 cm Right Kidney: No hydronephrosis or masses seen Left Kidney: No hydronephrosis or masses seen . Limited detail parenchymal assessment of the upper an d lower pole due to bowel gas shadowing. Bladder: Suboptimal assessment due to indwelling catheter. IMPRESSION: No hydronephrosis. [facility], , 10/26/2024 3:12 PM
--- NOTE | 2024-10-26 15:21 | P.CNPUL ---
History of Present Illness Consult date: 10/26/24 Requesting physician: Erickson Li Reason for consult: other (ICU management) Chief complaint: Altered mental status History of present illness: This is a 54-year-old female with history of multiple medical problems including COPD, chronic pain syndrome, dyslipidemia, bipolar disorder, hypertension, patient was brought into the ER yesterday mostly with change in mental status and according to family patient has been confused for the last 2 days, patient has been hallucinating and upon arrival to the ER she was noted to be severely bradycardic and hypotensive. Patient remained bradycardic, patient was seen by cardiology on consultation for her bradycardia, patient was taken to the cardiac [employer], her blood pressure was 120 on norepinephrine, decision was made to hold her pacemaker insertion. Previous cardiac workup from previous records has shown preserved systolic function and no documented ischemic heart disease. When labs were reviewed, patient was noted to have hyperkalemia and acute renal failure, shock liver profile, patient was intubated in the ER, she was eventually transferred to the ICU after she went to cardiac cath. But again pacemaker insertion was placed on hold. Patient is now intubated mechanically ventilated, she is on assist-control rate of 22 tidal volume 500 FiO2 100% and PEEP of 8 ABG showed a pO2 of 87 pCO2 53 pH of 7.14, her rate was increased to 26, patient received 1 amp of bicarb, and she was already on bicarb drip. Patient is on multiple drips including dopamine at 10 mcg/kg/min, propofol at 45 mg/kg/min Versed which I have discontinued 3 mg/h patient is also receiving epinephrine at 0.12 mcg/kg/min receiving 3 A of bicarb in D5W at 200 cc/h patient is hyperkalemic and follow-up sodium remains above 6, although the patient received the hyperkalemia protocol. Her initial potassium was 8.6 on her initial presentation. Patient already had a hemodialysis catheter placed by vascular surgery in the left groin, and she has a right IJ triple-lumen catheter. I went ahead and placed a right radial arterial line. Patient is scheduled to undergo hemodialysis today, patient is not responsive to any stimuli except deep painful stimuli noted while I was placing an arterial line, patient withdraws to painful stimuli/needlestick. Pupils are dilated and sluggishly reactive. Looking back at her history patient had total knee arthroplasty 3 months ago and she had a fall about a week ago may have sustained head injury however CT of the brain is pending patient is to be seen by neurology on consultation today. And she is being seen by many consultants including nephrology and cardiology. Overall picture is extremely poor and guar ded. And the patient is critically ill. Blood sugars are running high as 336 liver enzymes are elevated including a bilirubin of 2.2 AST of 3715 ALT of 4016 and alkaline phosphatase of 155 Review of Systems ROS unobtainable: due to endotracheal tube Past Medical History Past Medical History: Asthma, COPD, CVA/TIA, Hyperlipidemia, Hypertension, Osteoarthritis (OA), Pneumonia, Sleep Apnea/CPAP/BIPAP, Thyroid Disorder Additional Past Medical History / Comment(s): RSD dx 2012 lesions on brain ,"memory issues" possible MS no definitive dx as of yet, peripheral neuropathy- diogenes feet/legs arms, migraines, murmur, occular hypertension, probably stroke-no residual effects, "top part of heart beats slower that the bottom", no cpap used, uses oxygen all the time 2liters, anemia. no insurance coverage for synthroid. History of Any Multi-Drug Resistant Organisms: None Reported Past Surgical History: Appendectomy, Section, Cholecystectomy, Heart Catheterization, Orthopedic Surgery Additional Past Surgical History / Comment(s): diogenes carpal tunnel, left cubital tunnel, d&c, spinal puncture, rt knee surgery arthroscopic Past Anesthesia/Blood Transfusion Reactions: Motion Sickness Additional Past Anesthesia/Blood Transfusion Reaction / Comment(s): claustrophobia. "has had blood in past,-no reaction" Past Psychological History: Anxiety, Depression Smoking Status: Current every day smoker - Past Family History Father Family Medical History: Cancer Brother(s) Family Medical History: Diabetes Mellitus Mother Family Medical History: No Reported History Medications and Allergies Home Medications Medication Instructions Recorded Confirmed Type Butalb/APAP/Caff 50-325-40Mg 1 tab PO DAILY 05/22/17 10/26/24 History [Fioricet 50-325-40] DULoxetine HCL [Cymbalta] 60 mg PO HS 05/22/17 10/26/24 History Aspirin EC [Ecotrin Low Dose] 81 mg PO DAILY 06/06/18 10/26/24 History Loratadine [Claritin] 10 mg PO DAILY 06/06/18 10/26/24 History HYDROcodone/APAP 10-325MG [[place] 1 tab PO TID PRN 08/18/19 10/26/24 History 10-325] ARIPiprazole [Abilify] 5 mg PO HS 04/27/20 10/26/24 History Atorvastatin [Lipitor] 20 mg PO DAILY 04/27/20 10/26/24 History Metoprolol Tartrate [Lopressor] 25 mg PO BID 04/27/20 10/26/24 History Venlafaxine HCl ER [Effexor XR] 37.5 mg PO DAILY 04/27/20 10/26/24 History Potassium Chloride [Potassium 10 meq PO DAILY 04/21/21 10/26/24 History Chloride ER] rOPINIRole HCL [Requip] 1 mg PO DAILY PRN 04/21/21 10/26/24 History tiZANidine [Zanaflex] 4 mg PO TID 04/21/21 10/26/24 History Albuterol Sulfate [Albuterol 2 puff PO RT-QID PRN 05/29/21 10/26/24 History Sulfate Hfa] Fluticasone/Umeclidin/Vilanter 1 puff INHALATION RT-DAILY 12/05/21 10/26/24 History [Trelegy Ellipta 100-62.5-25] Furosemide [Lasix] 40 mg PO DAILY 12/05/21 10/26/24 History Ibuprofen [Motrin] 800 mg PO BID PRN 12/05/21 10/26/24 History metOLazone [Zaroxolyn] 5 mg PO DAILY 12/05/21 10/26/24 History Verapamil HCl [Verapamil ER] 180 mg PO DAILY 04/25/22 10/26/24 History ALPRAZolam [Xanax] 0.25 mg PO HS PRN 04/30/23 10/26/24 History DULoxetine HCL [Cymbalta] 30 mg PO HS 04/30/23 10/26/24 History Exemestane [Aromasin] 25 mg PO DAILY 04/30/23 10/26/24 History Zolpidem [Ambien] 10 mg PO HS PRN 04/30/23 10/26/24 History amLODIPine BESYLATE/BENAZEPRIL 1 cap PO DAILY 04/30/23 10/26/24 History [amLODIPine BESYLATE/BENAZEPRIL 5-20 mg] Albuterol Nebulized [Ventolin 2.5 mg INHALATION RT-QID 10/26/24 10/26/24 History Nebulized] Fluticasone Propion/Salmeterol 1 puff INHALATION RT-BID 10/26/24 10/26/24 History [Fluticasone-Salmeterol 250-50] Levothyroxine Sodium [Synthroid] 50 mcg PO DAILY 10/26/24 10/26/24 History Nitrofurantoin Monohyd/M-Cryst 100 mg PO Q12HR 10/26/24 10/26/24 History [Macrobid] Semaglutide [Wegovy] 1 mg SQ Q7D 10/26/24 10/26/24 History buPROPion XL [Wellbutrin XL] 150 mg PO DAILY 10/26/24 10/26/24 History Allergies Allergy/AdvReac Type Severity Reaction Status Date / Time morphine Allergy Itching/hiv Verified 10/26/24 13:43 es/sob peach Allergy Rash/Hives Verified 10/26/24 13:43 pear Allergy Unknown Verified 10/26/24 13:43 Sulfa (Sulfonamide Allergy RAPID Verified 10/26/24 13:43 Antibiotics) HEART RATE AND HIVES Physical Exam Vitals: Vital Signs Temp Pulse Resp BP Pulse Ox FiO2 10/26/24 12:20 92 26 H 122/62 98 70 10/26/24 12:10 92 24 111/64 98 70 10/26/24 12:05 90 10/26/24 12:00 92 24 118/55 98 70 10/26/24 11:54 92 10/26/24 11:50 90 24 118/55 98 70 10/26/24 11:44 70 10/26/24 11:40 91 22 114/52 98 70 10/26/24 11:30 91 24 112/52 98 70 10/26/24 11:20 90 24 112/52 98 70 10/26/24 11:10 90 24 105/57 98 70 10/26/24 11:00 90 24 106/58 98 70 10/26/24 10:50 90 24 106/58 98 70 10/26/24 10:40 90 22 109/55 100 70 10/26/24 10:30 90 22 115/57 100 100 10/26/24 10:20 89 22 115/57 100 100 10/26/24 10:11 100 10/26/24 10:10 90 24 120/54 100 10 10/26/24 10:08 90 10/26/24 10:00 90 22 118/53 100 98 10/26/24 09:50 90 24 118/53 100 98 10/26/24 09:40 90 22 115/51 100 98 10/26/24 09:30 90 22 121/58 100 98 10/26/24 09:20 90 26 H 121/58 100 100 10/26/24 09:10 90 24 124/55 100 100 10/26/24 09:00 90 22 122/61 100 100 10/26/24 08:50 89 22 122/61 100 100 10/26/24 08:40 90 24 119/58 100 100 10/26/24 08:30 89 22 122/57 100 100 10/26/24 08:20 89 22 122/57 99 100 10/26/24 08:10 88 22 125/53 99 100 10/26/24 08:00 22 133/56 96 100 10/26/24 07:50 22 100 100 10/26/24 07:40 22 100 100 10/26/24 07:30 22 100 100 10/26/24 06:40 111/57 10/26/24 06:30 81 0 L 76/53 96 10/26/24 06:22 100 10/26/24 06:20 70 0 L 76/53 96 10/26/24 06:10 79 0 L 105/47 96 10/26/24 06:00 85 17 117/55 97 10/26/24 05:50 84 21 117/55 94 L 10/26/24 05:40 83 18 117/63 94 L 10/26/24 05:30 83 23 109/56 92 L 10/26/24 05:20 81 21 109/56 92 L 10/26/24 05:10 81 21 104/62 89 L 10/26/24 05:00 82 15 109/50 88 L 10/26/24 04:50 82 24 109/50 89 L 10/26/24 04:40 97.5 F L 82 24 97/69 90 L 10/26/24 04:30 84 6 L 112/59 90 L 10/26/24 04:25 82 10/26/24 04:20 81 0 L 112/59 90 L 10/26/24 04:15 81 10/26/24 04:10 80 11 L 108/56 90 L 10/26/24 04:00 100 10/26/24 02:44 97.8 F 10/26/24 02:40 24 62/48 92 L 10/26/24 02:30 24 96/46 96 10/26/24 02:25 24 90/43 94 L 10/26/24 02:05 74 22 60/39 92 L 10/26/24 02:00 72 22 96/73 92 L 10/26/24 01:40 74 22 105/77 92 L 10/26/24 01:24 36 L 100 10/26/24 01:20 35 L 22 72/45 92 L 10/26/24 01:10 39 L 22 84/68 92 L 10/26/24 01:05 33 L 10/26/24 01:00 40 L 22 86/70 89 L 10/26/24 00:55 45 L 12 117/92 88 L 10/26/24 00:50 46 L 10 L 133/93 85 L 10/26/24 00:45 48 L 8 L 122/84 84 L 10/26/24 00:35 64 8 L 117/65 85 L 10/26/24 00:33 8 L 10/26/24 00:30 10 L 10/26/24 00:27 10 L 10/26/24 00:24 46 L 12 136/111 83 L Intake and Output 10/26/24 10/26/24 10/26/24 06:59 14:59 22:59 Intake Total 754.377 7822.098 Output Total 10 40 Balance 310.797 8641.098 Intake: IV 100 6 Pressure Bag 6 Intake, IV Titration 748.570 0249.098 Amount Calcium Gluconate in NaCl 100 1 gm In Saline 1 100ml. bag @ 100 mls/hr IVPB ONCE ONE Rx#:[id number] Dextrose 5% in Water 1, 600 1000 000 ml @ 200 mls/hr IV . Q5H45M SUMEET with Sodium Bicarb (1 Meq/ml) 150 ml Rx#:[id number] EPINEPHrine 4 mg In 250.000 Dextrose 5% in Water 250 ml @ 0.03 MCG/KG/MIN 16. 329 mls/hr IV .[id number] [facility] Rx#:[id number] EPINEPHrine 4 mg In 13.991 Dextrose 5% in Water 250 ml @ 0.03 MCG/KG/MIN 16. 46 mls/hr IV .[id number] [facility] Rx#:[id number] Midazolam HCl 50 mg In 8.55 Sodium Chloride 0.9% 40 ml @ 1 MG/HR 1 mls/hr IV .Q24H [facility] Rx#:[id number] propofoL 1,000 mg In 100.871 242.548 Empty Bag 1 bag @ 15 MCG/ KG/MIN 13.064 mls/hr IV . Q7H40M [facility] Rx#:[id number] Output: Urine 10 40 Stool 0 Other: Voiding Method Indwelling Catheter # Bowel Movements 0 Weight 145.15 kg 145.15 kg ABP, PAP, CO, CI - Last 8 Hours Arterial Blood Pressure 126/54 Arterial Blood Pressure 123/53 Arterial Blood Pressure 121/53 Arterial Blood Pressure 123/53 Arterial Blood Pressure 114/50 Arterial Blood Pressure 110/49 Arterial Blood Pressure 108/49 Arterial Blood Pressure 108/48 Arterial Blood Pressure 107/48 Arterial Blood Pressure 107/48 Arterial Blood Pressure 106/52 GENERAL: Revealed a 55-year-old female intubated, mechanically ventilated, unresponsive to any stimuli except deep painful stimuli/needlesticks. Patient withdraws to pain. HEENT: Normocephalic, atraumatic ,Conjunctivae normal. Pupils are dilated and sluggishly reactive to light NECK: Supple, No JVD. Endotracheal tube is intact, patient has a short obese neck, no neck masses no stridor. CARDIOVASCULAR: Distant S1-S2, no S3 gallop, no murmur. RESPIRATION: Diminished breath sound bilaterally no crackles rhonchi or wheezes ABDOMEN: Morbidly obese, soft, nontender,obese, nondistended ,positive Bowel sounds. LEGS: Trace of bipedal edema, diminished distal pulses bilaterally. NERVOUS SYSTEM: unable to evaluate as patient sedated and intubated, patient does withdraw to deep painful stimuli/needlesticks pupils are dilated and sluggishly reactive. Skin: Warm and dry, no rash Psychiatric: Could not assess. Patient is sedated on propofol and on Versed Results - Laboratory Findings CBC and BMP: 10/26/24 01:54 10/26/24 09:09 ABG ABG pH 7.14 (7.35-7.45) L* 10/26/24 11:30 ABG pCO2 53 mmHg (35-45) H 10/26/24 11:30 ABG pO2 87 mmHg (83-108) 10/26/24 11:30 ABG O2 Saturation 94.0 % (94-97) 10/26/24 11:30 PT/INR, D-dimer PT 12.1 sec (10.0-12.5) 10/26/24 01:54 INR 1.1 (<1.2) 10/26/24 01:54 Abnormal lab findings: Abnormal Labs 10/26/24 10/26/24 10/26/24 01:20 01:20 01:54 WBC Hgb MCHC RDW Neutrophils # (Manual) Metamyelocytes # (Man) Myelocytes # (Manual) Nucleated RBCs ABG pH ABG pCO2 ABG HCO3 ABG Total CO2 Sodium 135 L Potassium 8.6 H* Chloride 109 H Carbon Dioxide 17 L BUN 86 H Creatinine 3.24 H Glucose 47 L* POC Glucose (mg/dL) Total Bilirubin 1.4 H AST 1420 H ALT 1446 H Alkaline Phosphatase Total Protein 5.6 L Albumin 2.9 L TSH 9.660 H Urine Appearance Cloudy H Urine Protein 1+ H Ur Leukocyte Esterase Small H Urine WBC 8 H Urine Bacteria Rare H Hyaline Casts 19 H Urine Mucus Rare H Urine Yeast (Budding) Rare H Urine Opiates Screen Detected H 10/26/24 10/26/24 10/26/24 01:54 02:35 03:33 WBC 12.4 H Hgb 10.9 L MCHC 29.6 L RDW 18.7 H Neutrophils # (Manual) 9.10 H Metamyelocytes # (Man) 0.62 H Myelocytes # (Manual) 0.62 H Nucleated RBCs 36 H ABG pH 7.13 L* ABG pCO2 46 H ABG HCO3 15 L ABG Total CO2 16 L Sodium Potassium Chloride Carbon Dioxide BUN Creatinine Glucose POC Glucose (mg/dL) 60 L Total Bilirubin AST ALT Alkaline Phosphatase Total Protein Albumin TSH Urine Appearance Urine Protein Ur Leukocyte Esterase Urine WBC Urine Bacteria Hyaline Casts Urine Mucus Urine Yeast (Budding) Urine Opiates Screen 10/26/24 10/26/24 10/26/24 03:34 04:01 04:43 WBC Hgb MCHC RDW Neutrophils # (Manual) Metamyelocytes # (Man) Myelocytes # (Manual) Nucleated RBCs ABG pH ABG pCO2 ABG HCO3 ABG Total CO2 Sodium Potassium Chloride Carbon Dioxide BUN Creatinine Glucose POC Glucose (mg/dL) 216 H 190 H 232 H Total Bilirubin AST ALT Alkaline Phosphatase Total Protein Albumin TSH Urine Appearance Urine Protein Ur Leukocyte Esterase Urine WBC Urine Bacteria Hyaline Casts Urine Mucus Urine Yeast (Budding) Urine Opiates Screen 10/26/24 10/26/24 10/26/24 06:04 09:09 11:30 WBC Hgb MCHC RDW Neutrophils # (Manual) Metamyelocytes # (Man) Myelocytes # (Manual) Nucleated RBCs ABG pH 7.14 L* ABG pCO2 53 H ABG HCO3 18 L ABG Total CO2 Sodium 134 L Potassium 6.3 H* 6.2 H* Chloride Carbon Dioxide 12 L BUN 84 H Creatinine 3.31 H Glucose 321 H POC Glucose (mg/dL) Total Bilirubin 2.2 H AST 3715 H ALT 4016 H Alkaline Phosphatase 155 H Total Protein Albumin TSH Urine Appearance Urine Protein Ur Leukocyte Esterase Urine WBC Urine Bacteria Hyaline Casts Urine Mucus Urine Yeast (Budding) Urine Opiates Screen 10/26/24 12:32 WBC Hgb MCHC RDW Neutrophils # (Manual) Metamyelocytes # (Man) Myelocytes # (Manual) Nucleated RBCs ABG pH ABG pCO2 ABG HCO3 ABG Total CO2 Sodium Potassium Chloride Carbon Dioxide BUN Creatinine Glucose POC Glucose (mg/dL) 336 H Total Bilirubin AST ALT Alkaline Phosphatase Total Protein Albumin TSH Urine Appearance Urine Protein Ur Leukocyte Esterase Urine WBC Urine Bacteria Hyaline Casts Urine Mucus Urine Yeast (Budding) Urine Opiates Screen - Diagnostic Findings Chest x-ray: image reviewed (Chest x-ray is showing cardiomegaly, bibasilar atelectasis, small pleural effusions, and suspect underlying airspace disease involving the bases bilaterally, there is also prominence of the pulmonary vasculature) Assessment and Plan Assessment: Impression: Acute on chronic hypoxic respiratory failure, patient is normally on 2 L nasal cannula at home. Acute hypercapnic respiratory failure Severe bradycardia with hypovolemic shock Acute kidney injury secondary to ATN patient will require emergent hemodialysis Severe acute hyperkalemia, multifactorial patient does have history of nonsteroidal anti-inflammatory drugs use and presented with bradycardia and hypotension and a picture of cardiogenic shock Shock liver Acute metabolic and respiratory acidosis as noted on ABG Recent history of knee surgery Recent urinary tract infection History of pulmonary hypertension History of alpha 1 antitrypsin deficiency History of nicotine dependence Benign essential hypertension Morbid obesity Degenerative joint disease Chronic peripheral neuropathy Chronic back pain History of migraine cephalgia History of depression History of pulmonary hypertension possible acute anoxic brain injury Recommendation: Continue ventilatory support Continue hemodynamic support Proceed with hemodialysis Proceed with CT scan of the brain GI and DVT prophylaxis Insulin including Levemir insulin and NovoLog insulin for hyperglycemia Bronchodilators for underlying COPD Empiric antibiotics/ceftriaxone Continue dopamine for now as long as the patient is bradycardic and hypotensive Titrate epinephrine as tolerated continue sodium bicarb drip Neurology to see on consultation for possible anoxic brain injury and possible recent head trauma from fall. Continue to monitor ABGs and adjust ventilator settings accordingly Patient is critically ill Family updated on her condition at bedside Critical care time is over 45 minutes Time with Patient: Greater than 30
[2024-10-26] MEDS: levETIRAcetam IV 500 MG/5 ML VIAL IVP SCH (16:31)
[2024-10-26 16:59] LABS: African American GFR (CKD) 22 (>60 ml/min/1.73 sqM); Anion Gap 16 mmol/L; Blood Urea Nitrogen 73 mg/dL (7-17); Carbon Dioxide 20 mmol/L (22-30); Chloride 95 mmol/L (98-107); Glucose 343 mg/dL (74-99); Non-African American GFR(CKD) 19 (>60 ml/min/1.73 sqM); Potassium 4.3 mmol/L (3.5-5.1); Sodium 131 mmol/L (137-145)
[2024-10-26 18:30] LABS: Glucose,Whole Blood 335 mg/dL (70-110)
--- NOTE | 2024-10-26 19:40 | OP ---
OPERATIVE REPORT DATE OF SERVICE : PROCEDURE PERFORMED: Placement of a right radial arterial line. PREOPERATIVE DIAGNOSIS: Acute hypoxic respiratory failure requiring intubation and mechanical ventilation secondary to cardiac arrest. POSTOPERATIVE DIAGNOSIS: Acute hypoxic respiratory failure requiring intubation and mechanical ventilation secondary to cardiac arrest. ANESTHESIA USED: None deployed. DESCRIPTION OF PROCEDURE: The right wrist was prepared in a sterile fashion. Drapes were applied. The right radial artery was palpated, cannulated easily, a guidewire was placed, a Cook's catheter was inserted over the guidewire, and the guidewire was removed. Good blood flow, good waveform, no complications, line was secured using 3.0 silk sutures. MMODL / IJN: [id number] /
[2024-10-26] MEDS: fentaNYL (PF). 1,000 MCG in SODIUM CHLORIDE 0.9% 80 ML IV SCH (20:35)
[2024-10-26] MEDS: CHLORHEXIDINE GLUCONATE 15 ML CUP MUCOUS MEM SCH (20:53)
[2024-10-26 23:10] LABS: Glucose,Whole Blood 334 mg/dL (70-110)
[2024-10-27 01:01] LABS: ABG Base Excess 4.4 mmol/L; ABG HCO3 29 mmol/L (21-25); ABG Oxygen Saturation 95.5 % (94-97); ABG PCO2 44 mmHg (35-45); ABG PH 7.43 (7.35-7.45); ABG PO2 74 mmHg (83-108); ABG TCO2 31 mmol/L (19-24); Allen Test Performed? Yes
[2024-10-27] MEDS: CISATRACURIUM 2 MG/ML 5 ML VIAL IV ONE ×2 (01:01→03:45)
--- NOTE | 2024-10-27 03:52 | XR ---
EXAM: XR Chest, 1 View CLINICAL HISTORY: Tube placement TECHNIQUE: Frontal view of the chest. COMPARISON: Yesterday FINDINGS: Lungs: Persistent moderate-large amount of airspace opacities throughout both lungs more on the right, similar. Lungs are underinflated. Pleural space: Unchanged. Mediastinum: Unchanged. Bones/joints: No acute findings. Tubes, lines and devices: Tip of enteric tube is poorly visualized, can be traced to body of the stomach. Endotracheal tube, right jugular central venous catheter are unchanged in positions. IMPRESSION: 1. Tip of enteric tube is poorly visualized, can be traced to body of the stomach. 2. Persistent moderate-large amount of airspace opacities throughout both lungs more on the right, similar.
[2024-10-27] MEDS: CISATRACURIUM 200 MG in SODIUM CHLORIDE 0.9% 180 ML IV SCH (04:33)
[2024-10-27 04:49] LABS: Glucose,Whole Blood 180 mg/dL (70-110)
[2024-10-27 05:15] LABS: Anisocytosis Slight; HCT 35.3 % (34.0-46.0); HGB 11.4 gm/dL (11.4-16.0); Hypochromasia Moderate; MCH 27.7 pg (25.0-35.0); MCHC 32.3 g/dL (31.0-37.0); MCV 85.7 fL (80.0-100.0); Mean Platelet Volume 10.4; Platelet Count 203 k/uL (150-450); RBC 4.12 m/uL (3.80-5.40); RDW 18.6 % (11.5-15.5); WBC 11.3 k/uL (3.8-10.6)
[2024-10-27 05:21] LABS: ABG Base Excess 3.5 mmol/L; ABG HCO3 32 mmol/L (21-25); ABG Oxygen Saturation 92.4 % (94-97); ABG PH 7.26 (7.35-7.45); ABG PO2 74 mmHg (83-108); ABG TCO2 34 mmol/L (19-24)
[2024-10-27 05:24] LABS: ABG PCO2 72 mmHg (35-45)
[2024-10-27 05:29] LABS: African American GFR (CKD) 22 (>60 ml/min/1.73 sqM); Anion Gap 10 mmol/L; Blood Urea Nitrogen 82 mg/dL (7-17); Calcium 7.5 mg/dL (8.4-10.2); Carbon Dioxide 32 mmol/L (22-30); Chloride 89 mmol/L (98-107); Glucose 166 mg/dL (74-99); Non-African American GFR(CKD) 19 (>60 ml/min/1.73 sqM); Potassium 4.9 mmol/L (3.5-5.1); Sodium 131 mmol/L (137-145)
[2024-10-27] MEDS: PIPERACILLIN-TAZOBACTAM 3.375 GM in SODIUM CHLORIDE 0.9% 100 ML IVPB SCH ×2 (08:25→20:20)
--- NOTE | 2024-10-27 10:05 | P.PN ---
Subjective Patient is seen in follow-up for acute kidney injury. Started on hemodialysis October 26, 2024. Remains on epinephrine and dopamine drip. Also on bicarb drip. Acidosis improved. Urine output 5 to 20 cc an hour. Intubated. Vital signs are stable. General: Resting in bed. HEENT: Intubated. LUNGS: Scattered rhonchi. HEART: Rate and Rhythm are regular. ABDOMEN: Obese. EXTREMITITES: Trace edema. Objective - Vital Signs Vital signs: Vital Signs Temp 98.1 F 10/27/24 04:00 Pulse 77 10/27/24 07:00 Resp 31 H 10/27/24 07:00 BP 90/41 10/27/24 03:00 Pulse Ox 91 L 10/27/24 07:00 FiO2 100 10/27/24 09:08 Intake & Output 10/26/24 10/27/24 10/27/24 18:59 06:59 18:59 Intake Total 4039.550 3701.812 553.602 Output Total 650 198 0 Balance 3389.550 3503.812 553.602 Weight 145.15 kg Intake: IV 24 2336 203 Dextrose 5% in Water 10 200 000 ml @ 75 mls/hr IV . [id number] SUMEET with Sodium Bicarb (1 Meq/ml) 150 ml Rx#:[id number] Pressure Bag 24 36 3 cefTRIAXone 1 gm In 100 Sodium Chloride 0.9% 50 ml @ 100 mls/hr IVPB Q24HR SUMEET Rx#:[id number] Intake, IV Titration 3515.550 1365.812 350.602 Amount Calcium Gluconate in NaCl 100 1 gm In Saline 1 100ml. bag @ 100 mls/hr IVPB ONCE ONE Rx#:[id number] Cisatracurium 200 mg In 14.806 31.062 Sodium Chloride 0.9% 180 ml @ 1 MCG/KG/MIN 8.709 mls/hr IV .[id number] SUMEET Rx #:[id number] DOPamine DRIP 800 mg In 250 250 Dextrose/Water 1 250ml. bag @ 1 MCG/KG/MIN 2.722 mls/hr IV .Q24H SUMEET Rx#: [id number] Dextrose 5% in Water 10 200 000 ml @ 75 mls/hr IV . [id number] SUMEET with Sodium Bicarb (1 Meq/ml) 150 ml Rx#:[id number] EPINEPHrine 4 mg In 500.000 201.215 42.818 Dextrose 5% in Water 250 ml @ 0.03 MCG/KG/MIN 16. 329 mls/hr IV .[id number] [facility] Rx#:[id number] Midazolam HCl 50 mg In 8.55 Sodium Chloride 0.9% 40 ml @ 1 MG/HR 1 mls/hr IV .Q24H [facility] Rx#:[id number] fentaNYL (PF). 1,000 mcg 100.000 100 In Sodium Chloride 0.9% 80 ml @ 0.5 MCG/KG/HR 7. 258 mls/hr IV .[id number] [facility] Rx#:[id number] propofoL 1,000 mg In 457.000 599.791 176.722 Empty Bag 1 bag @ 15 MCG/ KG/MIN 13.064 mls/hr IV . [id number] [facility] Rx#:[id number] Hemodialysis 500 Output: Urine 150 198 0 Stool 0 Hemodialysis 500 Hemodialysis Net Amount 0 Other: Voiding Method Indwelling Catheter Indwelling Catheter # Bowel Movements 0 ABP, PAP, CO, CI - Last Documented Arterial Blood Pressure 113/53 - Labs CBC & Chem 7: 10/27/24 04:48 10/27/24 04:48 Labs: Abnormal Lab Results - Last 24 Hours (Table) 10/26/24 10/26/24 10/26/24 Range/Units 01:54 09:09 11:30 WBC (3.8-10.6) k/uL RDW (11.5-15.5) % Pathologist Review See comment A ABG pH 7.14 L* (7.35-7.45) ABG pCO2 53 H (35-45) mmHg ABG pO2 (83-108) mmHg ABG HCO3 18 L (21-25) mmol/L ABG Total CO2 (19-24) mmol/L ABG O2 Saturation (94-97) % Hemoglobin (11.4-16.0) gm/dL Sodium (137-145) mmol/L Potassium 6.2 H* (3.5-5.1) mmol/L Chloride (98-107) mmol/L Carbon Dioxide (22-30) mmol/L BUN (7-17) mg/dL Creatinine (0.52-1.04) mg/dL Glucose (74-99) mg/dL POC Glucose (mg/dL) (70-110) mg/dL Calcium (8.4-10.2) mg/dL 10/26/24 10/26/24 10/26/24 Range/Units 12:32 16:05 18:28 WBC (3.8-10.6) k/uL RDW (11.5-15.5) % Pathologist Review ABG pH (7.35-7.45) ABG pCO2 (35-45) mmHg ABG pO2 (83-108) mmHg ABG HCO3 (21-25) mmol/L ABG Total CO2 (19-24) mmol/L ABG O2 Saturation (94-97) % Hemoglobin (11.4-16.0) gm/dL Sodium 131 L (137-145) mmol/L Potassium (3.5-5.1) mmol/L Chloride 95 L (98-107) mmol/L Carbon Dioxide 20 L (22-30) mmol/L BUN 73 H (7-17) mg/dL Creatinine 2.77 H (0.52-1.04) mg/dL Glucose 343 H (74-99) mg/dL POC Glucose (mg/dL) 336 H 335 H (70-110) mg/dL Calcium 8.0 L (8.4-10.2) mg/dL 10/26/24 10/27/24 10/27/24 Range/Units 23:09 00:56 04:47 WBC (3.8-10.6) k/uL RDW (11.5-15.5) % Pathologist Review ABG pH (7.35-7.45) ABG pCO2 (35-45) mmHg ABG pO2 74 L (83-108) mmHg ABG HCO3 29 H (21-25) mmol/L ABG Total CO2 31 H (19-24) mmol/L ABG O2 Saturation (94-97) % Hemoglobin 11.0 L (11.4-16.0) gm/dL Sodium (137-145) mmol/L Potassium (3.5-5.1) mmol/L Chloride (98-107) mmol/L Carbon Dioxide (22-30) mmol/L BUN (7-17) mg/dL Creatinine (0.52-1.04) mg/dL Glucose (74-99) mg/dL POC Glucose (mg/dL) 334 H 180 H (70-110) mg/dL Calcium (8.4-10.2) mg/dL 10/27/24 10/27/24 10/27/24 Range/Units 04:48 04:48 05:21 WBC 11.3 H (3.8-10.6) k/uL RDW 18.6 H (11.5-15.5) % Pathologist Review ABG pH 7.26 L (7.35-7.45) ABG pCO2 72 H* (35-45) mmHg ABG pO2 74 L (83-108) mmHg ABG HCO3 32 H (21-25) mmol/L ABG Total CO2 34 H (19-24) mmol/L ABG O2 Saturation 92.4 L (94-97) % Hemoglobin 10.9 L (11.4-16.0) gm/dL Sodium 131 L (137-145) mmol/L Potassium (3.5-5.1) mmol/L Chloride 89 L (98-107) mmol/L Carbon Dioxide 32 H (22-30) mmol/L BUN 82 H (7-17) mg/dL Creatinine 2.77 H (0.52-1.04) mg/dL Glucose 166 H (74-99) mg/dL POC Glucose (mg/dL) (70-110) mg/dL Calcium 7.5 L (8.4-10.2) mg/dL Microbiology - Last 24 Hours (Table) 10/26/24 15:08 Gram Stain - Preliminary Sputum Assessment and Plan Plan: Assessment: 1. Acute kidney injury secondary to ATN secondary to bradycardia, hypotension further worsen with the use of NSAIDs and diuretics. Baseline creatinine 0.7- 0.8 and 3.31 on admission. Oliguric. Started on hemodialysis October 26, 2024 via femoral dialysis catheter. No hydronephrosis noted on kidney ultrasound. 2. Hyperkalemia secondary to acute kidney injury, acidosis, NSAIDs, potassium supplementation. Improved postdialysis. 3. Bradycardia secondary to hyperkalemia. Improved. 4. Metabolic acidosis secondary to acute kidney injury. Improved with bicarb drip. 5. Shock liver. 6. Recent right knee surgery with subsequent fall. Will need further intervention in the future. Plan: Stop bicarb drip. Start normal saline at 50 cc an hour for maintenance fluids. Hemodialysis today and again tomorrow. Monitor for renal recovery. Wean FiO2 and vasopressors. Preserved ejection fraction noted on echocardiogram. Avoid nephrotoxins. Lasix 80 mg IV once this afternoon.
[2024-10-27] MEDS: SODIUM CHLORIDE 0.9% 1,000 ML IV SCH ×2 (10:53→12:49)
[2024-10-27] MEDS: LACTATED RINGERS 1,000 ML IV SCH (10:54)
[2024-10-27 11:43] LABS: Glucose,Whole Blood 105 mg/dL (70-110)
[2024-10-27] MEDS: DEXAMETHASONE SOD PHOSPHATE 10 MG/ML 1 ML VIAL IVP SCH (11:48)
[2024-10-27 13:19] LABS: AST 7474 U/L (14-36)
[2024-10-27] MEDS: IPRATROPIUM-ALBUTEROL 3 ML NEB INHALATION SCH (13:19)
[2024-10-27 13:20] LABS: ALT 7846 U/L (4-34)
--- NOTE | 2024-10-27 14:18 | P.CNNES ---
History of Present Illness Consult date: 10/27/24 Requesting physician: Valentin Coles Reason for Consult: altered mental status, right pupil nonreactive History of Present Illness: This is a 54-year-old woman with history of COPD on home oxygen, complex regional pain syndrome who presents to the emergency department on 10/26/2024 for altered mental status. History is obtained from the patient's and mother. According to the who is at bedside he states that the patient has underlying history of COPD and she is on home oxygen but it seems in the last couple days the patient has been confused she has been hallucinating and he feels like she was delirious. He stated that he got really worse this past Saturday. Initially stated that she was altered the past couple days which can happen with her muscle relaxant but on Saturday she was hallucinating. He stated that her oxygen was checked and it was 70% and her heart rate was in the 20s heart rate per minute. Patient does not have any history of stroke or seizures. Patient had recent right knee surgery Some of the workup during this hospital visit consisted of: On presentation her pulse ox was 83% on nonrebreather. Her respiratory rate is as low as 8. Heart rate was as low as in the 30s yesterday Yesterday while in the ICU was felt the patient had quivering of her chest and abdominal muscles according to the ICU nurse but no seizure-like activity. I Empirically started the patient on Keppra 500 mg twice daily yesterday. No further twitching of the muscles today. As a result the patient was intubated on the ventilator. Creatinine on presentation is 3.24 Her AST is trending up as high as 7474 ALT is also trending up as high as 7846. POC glucose was low at 60 yesterday and it has been in the range of 100s to 300s. Potassium was as high as 8.6 on presentation and now it is currently normalized. Per Nurse yesterday they attempted to take the patient down for CT of the head but she was unstable and she was desatting so they had to abort it. Patient is on IV Nimbex, propofol and fentanyl. She has dilated pupil over the right side that is more significant compared to the left. Review of Systems Limited but as per HPI. Past Medical History Past Medical History: Asthma, COPD, CVA/TIA, Hyperlipidemia, Hypertension, Osteoarthritis (OA), Pneumonia, Sleep Apnea/CPAP/BIPAP, Thyroid Disorder Additional Past Medical History / Comment(s): RSD dx 2012 lesions on brain,"memory issues" possible MS no definitive dx as of yet, peripheral neuropathy-diogenes feet/legs arms, migraines, murmur, occular hypertension, probably stroke-no residual effects, "top part of heart beats slower that the bottom", no cpap used, uses oxygen all the time 2liters, anemia. no insurance coverage for synthroid. History of Any Multi-Drug Resistant Organisms: None Reported Past Surgical History: Appendectomy, Section, Cholecystectomy, Heart Catheterization, Orthopedic Surgery Additional Past Surgical History / Comment(s): diogenes carpal tunnel, left cubital tunnel, d&c, spinal puncture, rt knee surgery arthroscopic Past Anesthesia/Blood Transfusion Reactions: Motion Sickness Additional Past Anesthesia/Blood Transfusion Reaction / Comment(s): claustrophobia. "has had blood in past,-no reaction" Past Psychological History: Anxiety, Depression Smoking Status: Current every day smoker - Past Family History Father Family Medical History: Cancer Brother(s) Family Medical History: Diabetes Mellitus Mother Family Medical History: No Reported History Medications and Allergies Home Medications Medication Instructions Recorded Confirmed Type Butalb/APAP/Caff 50-325-40Mg 1 tab PO DAILY 05/22/17 10/26/24 History [Fioricet 50-325-40] DULoxetine HCL [Cymbalta] 60 mg PO HS 05/22/17 10/26/24 History Aspirin EC [Ecotrin Low Dose] 81 mg PO DAILY 06/06/18 10/26/24 History Loratadine [Claritin] 10 mg PO DAILY 06/06/18 10/26/24 History HYDROcodone/APAP 10-325MG [[place] 1 tab PO TID PRN 08/18/19 10/26/24 History 10-325] ARIPiprazole [Abilify] 5 mg PO HS 04/27/20 10/26/24 History Atorvastatin [Lipitor] 20 mg PO DAILY 04/27/20 10/26/24 History Metoprolol Tartrate [Lopressor] 25 mg PO BID 04/27/20 10/26/24 History Venlafaxine HCl ER [Effexor XR] 37.5 mg PO DAILY 04/27/20 10/26/24 History Potassium Chloride [Potassium 10 meq PO DAILY 04/21/21 10/26/24 History Chloride ER] rOPINIRole HCL [Requip] 1 mg PO DAILY PRN 04/21/21 10/26/24 History tiZANidine [Zanaflex] 4 mg PO TID 04/21/21 10/26/24 History Albuterol Sulfate [Albuterol 2 puff PO RT-QID PRN 05/29/21 10/26/24 History Sulfate Hfa] Fluticasone/Umeclidin/Vilanter 1 puff INHALATION RT-DAILY 12/05/21 10/26/24 History [Trelegy Ellipta 100-62.5-25] Furosemide [Lasix] 40 mg PO DAILY 12/05/21 10/26/24 History Ibuprofen [Motrin] 800 mg PO BID PRN 12/05/21 10/26/24 History metOLazone [Zaroxolyn] 5 mg PO DAILY 12/05/21 10/26/24 History Verapamil HCl [Verapamil ER] 180 mg PO DAILY 04/25/22 10/26/24 History ALPRAZolam [Xanax] 0.25 mg PO HS PRN 04/30/23 10/26/24 History DULoxetine HCL [Cymbalta] 30 mg PO HS 04/30/23 10/26/24 History Exemestane [Aromasin] 25 mg PO DAILY 04/30/23 10/26/24 History Zolpidem [Ambien] 10 mg PO HS PRN 04/30/23 10/26/24 History amLODIPine BESYLATE/BENAZEPRIL 1 cap PO DAILY 04/30/23 10/26/24 History [amLODIPine BESYLATE/BENAZEPRIL 5-20 mg] Albuterol Nebulized [Ventolin 2.5 mg INHALATION RT-QID 10/26/24 10/26/24 History Nebulized] Fluticasone Propion/Salmeterol 1 puff INHALATION RT-BID 10/26/24 10/26/24 History [Fluticasone-Salmeterol 250-50] Levothyroxine Sodium [Synthroid] 50 mcg PO DAILY 10/26/24 10/26/24 History Nitrofurantoin Monohyd/M-Cryst 100 mg PO Q12HR 10/26/24 10/26/24 History [Macrobid] Semaglutide [Wegovy] 1 mg SQ Q7D 10/26/24 10/26/24 History buPROPion XL [Wellbutrin XL] 150 mg PO DAILY 10/26/24 10/26/24 History Allergies Allergy/AdvReac Type Severity Reaction Status Date / Time morphine Allergy Itching/hiv Verified 10/26/24 13:43 es/sob peach Allergy Rash/Hives Verified 10/26/24 13:43 pear Allergy Unknown Verified 10/26/24 13:43 Sulfa (Sulfonamide Allergy RAPID Verified 10/26/24 13:43 Antibiotics) HEART RATE AND HIVES Physical Examination - Vital Signs Vital Signs: Vital Signs Temp Pulse Pulse Resp BP BP Pulse Ox 10/27/24 13:19 81 10/27/24 13:16 10/27/24 13:00 83 30 H 93 L 10/27/24 12:45 83 30 H 93 L 10/27/24 12:30 85 30 H 93 L 10/27/24 12:15 84 30 H 93 L 10/27/24 12:00 85 30 H 94/38 93 L 10/27/24 11:45 82 30 H 92 L 10/27/24 11:33 97.9 F 79 30 H 137/54 10/27/24 11:30 80 30 H 92 L 10/27/24 11:15 79 30 H 92 L 10/27/24 11:00 80 30 H 92 L 10/27/24 10:45 79 30 H 91 L 10/27/24 10:30 79 30 H 92 L 10/27/24 10:16 10/27/24 10:15 79 30 H 92 L 10/27/24 10:13 79 10/27/24 10:00 79 30 H 92 L 10/27/24 09:45 79 30 H 91 L 10/27/24 09:30 79 30 H 91 L 10/27/24 09:15 79 30 H 92 L 10/27/24 09:08 10/27/24 09:00 79 30 H 100/40 92 L 10/27/24 08:45 78 30 H 93 L 10/27/24 08:30 78 30 H 95 10/27/24 08:15 78 30 H 95 10/27/24 08:00 78 30 H 93 L 10/27/24 07:45 79 30 H 95 10/27/24 07:30 77 30 H 93 L 10/27/24 07:15 78 30 H 93 L 10/27/24 07:00 77 31 H 91 L 10/27/24 06:45 78 30 H 91 L 10/27/24 06:30 77 30 H 93 L 10/27/24 06:15 78 30 H 94 L 10/27/24 06:00 79 26 H 96 10/27/24 05:45 80 26 H 96 10/27/24 05:30 80 26 H 96 10/27/24 05:15 81 26 H 97 10/27/24 05:00 82 26 H 98 10/27/24 04:45 83 26 H 96 10/27/24 04:43 10/27/24 04:30 83 26 H 96 10/27/24 04:16 10/27/24 04:15 83 26 H 99 10/27/24 04:09 10/27/24 04:00 98.1 F 84 26 H 97 10/27/24 03:45 78 26 H 92 L 10/27/24 03:30 78 32 H 92 L 10/27/24 03:15 74 35 H 92 L 10/27/24 03:00 76 42 H 90/41 10/27/24 02:45 77 26 H 90/41 10/27/24 02:30 77 26 H 90/41 93 L 10/27/24 02:15 75 26 H 90/41 90 L 10/27/24 02:00 75 26 H 103/48 92 L 10/27/24 01:45 75 26 H 103/48 91 L 10/27/24 01:30 75 26 H 90/45 91 L 10/27/24 01:15 75 26 H 109/51 92 L 10/27/24 01:06 10/27/24 01:00 75 26 H 107/47 95 10/27/24 00:45 75 26 H 95 10/27/24 00:30 75 26 H 102/49 96 10/27/24 00:15 75 26 H 97 10/27/24 00:06 10/27/24 00:00 98.0 F 75 26 H 98 10/26/24 23:45 77 26 H 98 10/26/24 23:30 79 26 H 98 10/26/24 23:15 80 26 H 98 10/26/24 23:05 80 26 H 98 10/26/24 23:00 80 26 H 136/61 97 10/26/24 22:45 82 26 H 98 10/26/24 22:30 84 26 H 98 10/26/24 22:15 84 26 H 98 10/26/24 22:00 85 26 H 136/61 98 10/26/24 21:45 86 26 H 98 10/26/24 21:30 87 26 H 99 10/26/24 21:15 87 26 H 99 10/26/24 21:00 86 26 H 136/61 99 10/26/24 20:45 86 26 H 100 10/26/24 20:30 86 26 H 129/57 100 10/26/24 20:23 96 10/26/24 20:15 85 26 H 100 10/26/24 20:13 85 10/26/24 20:09 10/26/24 20:00 98.0 F 86 26 H 120/48 100 10/26/24 19:45 86 26 H 100 10/26/24 19:30 87 26 H 120/48 100 10/26/24 19:15 88 17 120/48 100 10/26/24 19:00 88 26 H 120/48 100 10/26/24 18:50 89 26 H 120/48 100 10/26/24 18:40 89 40 H 100 10/26/24 18:30 90 30 H 98 10/26/24 18:20 89 26 H 97 10/26/24 18:10 26 H 10/26/24 18:00 26 H 10/26/24 17:50 26 H 10/26/24 17:40 26 H 100 10/26/24 17:30 26 H 99 10/26/24 17:20 88 26 H 98 10/26/24 17:10 88 26 H 98 10/26/24 17:00 89 26 H 98 10/26/24 16:57 97 F L 92 22 112/56 10/26/24 16:50 89 26 H 98 10/26/24 16:40 89 26 H 98 10/26/24 16:30 89 26 H 98 10/26/24 16:20 89 26 H 98 10/26/24 16:10 89 26 H 120/48 97 10/26/24 16:00 97.4 F L 89 26 H 118/68 97 10/26/24 15:50 89 26 H 89 L 10/26/24 15:40 89 26 H 125/63 98 10/26/24 15:30 89 26 H 98 10/26/24 15:27 88 10/26/24 15:20 88 26 H 123/64 99 10/26/24 15:10 88 26 H 131/61 93 L 10/26/24 15:09 88 10/26/24 15:02 10/26/24 15:00 89 26 H 134/58 99 10/26/24 14:50 89 26 H 98 10/26/24 14:40 89 26 H 128/59 99 10/26/24 14:30 89 26 H 98 10/26/24 14:20 89 26 H 100 10/26/24 14:10 90 26 H 123/67 99 10/26/24 14:00 90 26 H 125/60 99 FiO2 10/27/24 13:19 10/27/24 13:16 100 10/27/24 13:00 10/27/24 12:45 10/27/24 12:30 10/27/24 12:15 10/27/24 12:00 100 10/27/24 11:45 10/27/24 11:33 10/27/24 11:30 10/27/24 11:15 10/27/24 11:00 100 10/27/24 10:45 100 10/27/24 10:30 100 10/27/24 10:16 100 10/27/24 10:15 100 10/27/24 10:13 10/27/24 10:00 100 10/27/24 09:45 100 10/27/24 09:30 100 10/27/24 09:15 100 10/27/24 09:08 100 10/27/24 09:00 100 10/27/24 08:45 100 10/27/24 08:30 100 10/27/24 08:15 100 10/27/24 08:00 100 10/27/24 07:45 100 10/27/24 07:30 100 10/27/24 07:15 100 10/27/24 07:00 10/27/24 06:45 10/27/24 06:30 10/27/24 06:15 10/27/24 06:00 10/27/24 05:45 10/27/24 05:30 10/27/24 05:15 10/27/24 05:00 10/27/24 04:45 10/27/24 04:43 100 10/27/24 04:30 10/27/24 04:16 70 10/27/24 04:15 10/27/24 04:09 100 10/27/24 04:00 100 10/27/24 03:45 10/27/24 03:30 10/27/24 03:15 10/27/24 03:00 10/27/24 02:45 10/27/24 02:30 10/27/24 02:15 10/27/24 02:00 10/27/24 01:45 10/27/24 01:30 10/27/24 01:15 10/27/24 01:06 70 10/27/24 01:00 10/27/24 00:45 10/27/24 00:30 10/27/24 00:15 10/27/24 00:06 80 10/27/24 00:00 80 10/26/24 23:45 10/26/24 23:30 10/26/24 23:15 10/26/24 23:05 10/26/24 23:00 10/26/24 22:45 10/26/24 22:30 10/26/24 22:15 10/26/24 22:00 10/26/24 21:45 10/26/24 21:30 10/26/24 21:15 10/26/24 21:00 10/26/24 20:45 10/26/24 20:30 10/26/24 20:23 10/26/24 20:15 10/26/24 20:13 10/26/24 20:09 80 10/26/24 20:00 70 10/26/24 19:45 10/26/24 19:30 10/26/24 19:15 10/26/24 19:00 10/26/24 18:50 10/26/24 18:40 10/26/24 18:30 10/26/24 18:20 10/26/24 18:10 10/26/24 18:00 10/26/24 17:50 10/26/24 17:40 70 10/26/24 17:30 70 10/26/24 17:20 70 10/26/24 17:10 70 10/26/24 17:00 70 10/26/24 16:57 10/26/24 16:50 70 10/26/24 16:40 10/26/24 16:30 70 10/26/24 16:20 70 10/26/24 16:10 70 10/26/24 16:00 70 10/26/24 15:50 70 10/26/24 15:40 70 10/26/24 15:30 10/26/24 15:27 10/26/24 15:20 10/26/24 15:10 10/26/24 15:09 10/26/24 15:02 70 10/26/24 15:00 10/26/24 14:50 10/26/24 14:40 10/26/24 14:30 10/26/24 14:20 10/26/24 14:10 10/26/24 14:00 Intake and Output 10/26/24 10/27/24 10/27/24 22:59 06:59 14:59 Intake Total 3214.507 2513.757 1995.153 Output Total 298 404 3530 Balance 2539.507 2390.757 565.153 Intake: IV 624 1724 221 Dextrose 5% in Water 1, 600 1600 200 000 ml @ 75 mls/hr IV . [id number] SUMEET with Sodium Bicarb (1 Meq/ml) 150 ml Rx#:[id number] Pressure Bag 24 24 21 [id number] 1 gm In 100 Sodium Chloride 0.9% 50 ml @ 100 mls/hr IVPB Q24HR [facility] Rx#:[id number] Intake, IV Titration 2090.507 491.642 7721.153 Amount Cisatracurium 200 mg In 14.806 52.254 Sodium Chloride 0.9% 180 ml @ 1 MCG/KG/MIN 8.709 mls/hr IV .[id number] [facility] Rx #:[id number] DOPamine DRIP 800 mg In 250 250 Dextrose/Water 1 250ml. bag @ 1 MCG/KG/MIN 2.722 mls/hr IV .Q24H [facility] Rx#: [id number] Dextrose 5% in Water 1, 1000 400 000 ml @ 75 mls/hr IV . [id number] SUMEET with Sodium Bicarb (1 Meq/ml) 150 ml Rx#:[id number] EPINEPHrine 4 mg In 404.041 47.174 100.424 Dextrose 5% in Water 250 ml @ 0.03 MCG/KG/MIN 16. 329 mls/hr IV .[id number] [facility] Rx#:[id number] Piperacillin-Tazobactam 3 100 .375 gm In Sodium Chloride 0.9% 100 ml @ 25 mls/hr IVPB Q8HR [facility] Rx# :[id number] Sodium Chloride 0.9% 1, 60 000 ml @ 20 mls/hr IV . Q24H [facility] Rx#:[id number] Sodium Chloride 0.9% 1, 50 000 ml @ 50 mls/hr IV . Q20H [facility] Rx#:[id number] fentaNYL (PF). 1,000 mcg 3.871 96.129 187.574 In Sodium Chloride 0.9% 80 ml @ 0.5 MCG/KG/HR 7. 258 mls/hr IV .[id number] [facility] Rx#:[id number] propofoL 1,000 mg In 432.595 381.648 373.901 Empty Bag 1 bag @ 15 MCG/ KG/MIN 13.064 mls/hr IV . [id number] [facility] Rx#:[id number] Tube Feeding 20 Hemodialysis 500 400 Other 30 Output: Urine 175 123 30 Stool 0 0 Hemodialysis 500 900 Hemodialysis Net Amount 0 500 Other: Voiding Method Indwelling Catheter Indwelling Catheter Indwelling Catheter # Bowel Movements 0 ABP, PAP, CO, CI - Last 8 Hours Arterial Blood Pressure 124/51 Arterial Blood Pressure 122/50 Arterial Blood Pressure 124/51 Arterial Blood Pressure 123/50 Arterial Blood Pressure 124/50 Arterial Blood Pressure 148/63 Arterial Blood Pressure 131/52 Arterial Blood Pressure 132/52 Arterial Blood Pressure 106/43 Arterial Blood Pressure 119/49 Arterial Blood Pressure 117/49 Arterial Blood Pressure 116/49 Arterial Blood Pressure 118/49 Arterial Blood Pressure 116/49 Arterial Blood Pressure 115/49 Arterial Blood Pressure 120/51 Arterial Blood Pressure 120/52 Arterial Blood Pressure 126/55 Arterial Blood Pressure 108/48 Arterial Blood Pressure 123/55 Arterial Blood Pressure 112/51 Arterial Blood Pressure 119/54 Arterial Blood Pressure 112/52 Arterial Blood Pressure 116/54 Arterial Blood Pressure 113/53 Arterial Blood Pressure 128/64 Arterial Blood Pressure 116/59 Arterial Blood Pressure 119/59 Arterial Blood Pressure 135/65 General: Lying in bed and does not appear in acute distress. Lung: Intubated on a ventilator. Neuro: Very limited. Is on IV Nimbex, IV Propofol and IV Fentanyl. Patient is comatose. GCS 3 (E1, VT1, M1). Pupils are round, right is 6mm and left is 3mm. Right pupil is sluggishly reactive to light compared to left. No cortical or brainstem function noted at this time and limited because of sedation and is on high Vent Setting (A/C 30). Motor: Strength is limited in assessment. Decrease tone throughout. No spontaneous movement. Plantars: Mute bilaterally. Results - Laboratory Findings CBC and BMP: 10/27/24 04:48 10/27/24 04:48 Abnormal Lab Findings: Abnormal Labs 10/26/24 10/26/24 10/26/24 01:20 01:20 01:54 WBC Hgb MCHC RDW Neutrophils # (Manual) Metamyelocytes # (Man) Myelocytes # (Manual) Nucleated RBCs Pathologist Review ABG pH ABG pCO2 ABG pO2 ABG HCO3 ABG Total CO2 ABG O2 Saturation Hemoglobin Sodium 135 L Potassium 8.6 H* Chloride 109 H Carbon Dioxide 17 L BUN 86 H Creatinine 3.24 H Glucose 47 L* POC Glucose (mg/dL) Calcium Total Bilirubin 1.4 H AST 1420 H ALT 1446 H Alkaline Phosphatase Total Protein 5.6 L Albumin 2.9 L TSH 9.660 H Urine Appearance Cloudy H Urine Protein 1+ H Ur Leukocyte Esterase Small H Urine WBC 8 H Urine Bacteria Rare H Hyaline Casts 19 H Urine Mucus Rare H Urine Yeast (Budding) Rare H Urine Opiates Screen Detected H 10/26/24 10/26/24 10/26/24 01:54 02:35 03:33 WBC 12.4 H Hgb 10.9 L MCHC 29.6 L RDW 18.7 H Neutrophils # (Manual) 9.10 H Metamyelocytes # (Man) 0.62 H Myelocytes # (Manual) 0.62 H Nucleated RBCs 36 H Pathologist Review See comment A ABG pH 7.13 L* ABG pCO2 46 H ABG pO2 ABG HCO3 15 L ABG Total CO2 16 L ABG O2 Saturation Hemoglobin Sodium Potassium Chloride Carbon Dioxide BUN Creatinine Glucose POC Glucose (mg/dL) 60 L Calcium Total Bilirubin AST ALT Alkaline Phosphatase Total Protein Albumin TSH Urine Appearance Urine Protein Ur Leukocyte Esterase Urine WBC Urine Bacteria Hyaline Casts Urine Mucus Urine Yeast (Budding) Urine Opiates Screen 10/26/24 10/26/24 10/26/24 03:34 04:01 04:43 WBC Hgb MCHC RDW Neutrophils # (Manual) Metamyelocytes # (Man) Myelocytes # (Manual) Nucleated RBCs Pathologist Review ABG pH ABG pCO2 ABG pO2 ABG HCO3 ABG Total CO2 ABG O2 Saturation Hemoglobin Sodium Potassium Chloride Carbon Dioxide BUN Creatinine Glucose POC Glucose (mg/dL) 216 H 190 H 232 H Calcium Total Bilirubin AST ALT Alkaline Phosphatase Total Protein Albumin TSH Urine Appearance Urine Protein Ur Leukocyte Esterase Urine WBC Urine Bacteria Hyaline Casts Urine Mucus Urine Yeast (Budding) Urine Opiates Screen 10/26/24 10/26/24 10/26/24 06:04 09:09 11:30 WBC Hgb MCHC RDW Neutrophils # (Manual) Metamyelocytes # (Man) Myelocytes # (Manual) Nucleated RBCs Pathologist Review ABG pH 7.14 L* ABG pCO2 53 H ABG pO2 ABG HCO3 18 L ABG Total CO2 ABG O2 Saturation Hemoglobin Sodium 134 L Potassium 6.3 H* 6.2 H* Chloride Carbon Dioxide 12 L BUN 84 H Creatinine 3.31 H Glucose 321 H POC Glucose (mg/dL) Calcium Total Bilirubin 2.2 H AST 3715 H ALT 4016 H Alkaline Phosphatase 155 H Total Protein Albumin TSH Urine Appearance Urine Protein Ur Leukocyte Esterase Urine WBC Urine Bacteria Hyaline Casts Urine Mucus Urine Yeast (Budding) Urine Opiates Screen 10/26/24 10/26/24 10/26/24 12:32 16:05 18:28 WBC Hgb MCHC RDW Neutrophils # (Manual) Metamyelocytes # (Man) Myelocytes # (Manual) Nucleated RBCs Pathologist Review ABG pH ABG pCO2 ABG pO2 ABG HCO3 ABG Total CO2 ABG O2 Saturation Hemoglobin Sodium 131 L Potassium Chloride 95 L Carbon Dioxide 20 L BUN 73 H Creatinine 2.77 H Glucose 343 H POC Glucose (mg/dL) 336 H 335 H Calcium 8.0 L Total Bilirubin AST ALT Alkaline Phosphatase Total Protein Albumin TSH Urine Appearance Urine Protein Ur Leukocyte Esterase Urine WBC Urine Bacteria Hyaline Casts Urine Mucus Urine Yeast (Budding) Urine Opiates Screen 10/26/24 10/27/24 10/27/24 23:09 00:56 04:47 WBC Hgb MCHC RDW Neutrophils # (Manual) Metamyelocytes # (Man) Myelocytes # (Manual) Nucleated RBCs Pathologist Review ABG pH ABG pCO2 ABG pO2 74 L ABG HCO3 29 H ABG Total CO2 31 H ABG O2 Saturation Hemoglobin 11.0 L Sodium Potassium Chloride Carbon Dioxide BUN Creatinine Glucose POC Glucose (mg/dL) 334 H 180 H Calcium Total Bilirubin AST ALT Alkaline Phosphatase Total Protein Albumin TSH Urine Appearance Urine Protein Ur Leukocyte Esterase Urine WBC Urine Bacteria Hyaline Casts Urine Mucus Urine Yeast (Budding) Urine Opiates Screen 10/27/24 10/27/24 10/27/24 04:48 04:48 04:48 WBC 11.3 H Hgb MCHC RDW 18.6 H Neutrophils # (Manual) Metamyelocytes # (Man) Myelocytes # (Manual) Nucleated RBCs Pathologist Review ABG pH ABG pCO2 ABG pO2 ABG HCO3 ABG Total CO2 ABG O2 Saturation Hemoglobin Sodium 131 L Potassium Chloride 89 L Carbon Dioxide 32 H BUN 82 H Creatinine 2.77 H Glucose 166 H POC Glucose (mg/dL) Calcium 7.5 L Total Bilirubin AST 7474 H ALT 7846 H Alkaline Phosphatase Total Protein Albumin TSH Urine Appearance Urine Protein Ur Leukocyte Esterase Urine WBC Urine Bacteria Hyaline Casts Urine Mucus Urine Yeast (Budding) Urine Opiates Screen 10/27/24 05:21 WBC Hgb MCHC RDW Neutrophils # (Manual) Metamyelocytes # (Man) Myelocytes # (Manual) Nucleated RBCs Pathologist Review ABG pH 7.26 L ABG pCO2 72 H* ABG pO2 74 L ABG HCO3 32 H ABG Total CO2 34 H ABG O2 Saturation 92.4 L Hemoglobin 10.9 L Sodium Potassium Chloride Carbon Dioxide BUN Creatinine Glucose POC Glucose (mg/dL) Calcium Total Bilirubin AST ALT Alkaline Phosphatase Total Protein Albumin TSH Urine Appearance Urine Protein Ur Leukocyte Esterase Urine WBC Urine Bacteria Hyaline Casts Urine Mucus Urine Yeast (Budding) Urine Opiates Screen Assessment and Plan Assessment: This is a 54-year-old woman with history of COPD on home oxygen who the past couple days she has been confused hallucinating and it seems that according to the her oxygen saturation at home was as low as 70% and the heart rate was in the 20s. In our facility oxygen saturation is in the 80s, bradycardic in the 30s currently she is tachypneic. Also has hypotension as low as 60s over 30s. On examination patient has significantly dilated pupil over the right compared to the left which is sluggishly reactive to light. She is unstable for imaging of the brain. States that she has significant hyperkalemia Altered mental status seems due to hypoxic and metabolic encephalopathy. Possible anoxic brain injury due to her severe hypoxia. On examination patient has anisocoria (right > left) and rest examination is very limited since is on Nimbex and Sedation (IV Propofol and Fentanyl) Acute on chronic hypoxic respiratory failure Severe bradycardia with hypovolemic shock Acute kidney injury Severe acute hyperkalemia Liver shock Recent history of knee surgery History of pulmonary hypertension History of migraine History of nicotine dependence Plan: Once the patient is more stable recommend to pursue with CT of the head. Routine EEG is completed and pending result. Once the patient is more stable recommend holding sedation and paralytic for better neurological examination Will defer the rest of the medical management to primary and other specialist Patient condition is critical. Plan discussed with patient's who is at bedside and mother via phone. Also discussed with ICU nurse. Thank you for the consultation. Time with Patient: Greater than 30
--- NOTE | 2024-10-27 14:57 | P.PN ---
Subjective Progress Note Date: 10/27/24 Principal diagnosis: Acute on chronic hypoxic respiratory failure and acute hypercapnic respiratory failure with hypovolemic shock and severe bradycardia This is a 54-year-old female with history of multiple medical problems including COPD, chronic pain syndrome, dyslipidemia, bipolar disorder, hypertension, patient was brought into the ER yesterday mostly with change in mental status and according to family patient has been confused for the last 2 days, patient has been hallucinating and upon arrival to the ER she was noted to be severely bradycardic and hypotensive. Patient remained bradycardic, patient was seen by cardiology on consultation for her bradycardia, patient was taken to the cardiac Hygiene Coordinator, her blood pressure was 120 on norepinephrine, decision was made to hold her pacemaker insertion. Previous cardiac workup from previous records has shown preserved systolic function and no documented ischemic heart disease. When labs were reviewed, patient was noted to have hyperkalemia and acute renal failure, shock liver profile, patient was intubated in the ER, she was eventually transferred to the ICU after she went to cardiac cath. But again pacemaker insertion was placed on hold. Patient is now intubated mechanically ventilated, she is on assist-control rate of 22 tidal volume 500 FiO2 100% and PEEP of 8 ABG showed a pO2 of 87 pCO2 53 pH of 7.14, her rate was increased to 26, patient received 1 amp of bicarb, and she was already on bicarb drip. Patient is on multiple drips including dopamine at 10 mcg/kg/min, propofol at 45 mg/kg/min Versed which I have discontinued 3 mg/h patient is also receiving epinephrine at 0.12 mcg/kg/min receiving 3 A of bicarb in D5W at 200 cc/h patient is hyperkalemic and follow-up sodium remains above 6, although the patient received the hyperkalemia protocol. Her initial potassium was 8.6 on her initial presentation. Patient already had a hemodialysis catheter placed by vascular surgery in the left groin, and she has a right IJ triple-lumen catheter. I went ahead and placed a right radial arterial line. Patient is scheduled to undergo hemodialysis today, patient is not responsive to any stimuli except deep painful stimuli noted while I was placing an arterial line, patient withdraws to painful stimuli/needlestick. Pupils are dilated and sluggishly reactive. Looking back at her history patient had total knee arthroplasty 3 months ago and she had a fall about a week ago may have sustained head injury however CT of the brain is pending patient is to be seen by neurology on consultation today. And she is being seen by many consultants including nephrology and cardiology. Overall picture is extremely poor and guarded. And the patient is critically ill. Blood sugars are running high as 336 liver enzymes are elevated including a bilirubin of 2.2 AST of 3715 ALT of 4016 and alkaline phosphatase of 155 Patient seen today on 10/27/2024, patient remains in the ICU, intubated and mecha nically ventilated sedated and paralyzed. Patient developed worsening pulmonary edema over the last 24 hours, hence she required higher FiO2 of 100% higher PEEP of 12 and she remains marginal as far as oxygenation is concerned. Patient is undergoing hemodialysis today no fluid was removed yesterday, and nephrology is planning to remove only 500 cc of fluid today. Patient remains on dopamine at 10 mcg/kg/min epinephrine at 0.02 mcg/kg/min Fentanyl at 2 mcg/kg/h propofol at 75 mcg/kg/min remains on Nimbex at 1 mcg/kg per minute and was supposed to have a CT of the brain yesterday, however the portion was relatively unstable could not have the CT of the brain done yesterday mostly because of arrhythmia and hypotension had to be brought back up to the ICU and she had to be paralyzed. Overall condition is not promising, actually her condition seems to be worse today compared to yesterday. Patient was seen by neurology on consultation still entertaining the possibility of anoxic brain injury due to severe hypoxia. The patient has anisocoria with right pupil larger than the left pupil full adequate neurological exam could not be fully done mostly because of the fact the patient is on Nimbex Fentanyl and propofol. Patient could not come off Nimbex mostly because could not be ventilated yesterday in spite of multiple sedatives including propofol and fentanyl. These were relatively high doses. She was very asynchronous with the ventilator, breathing over 40/min, had to be given Nimbex otherwise could not ventilate the patient. Today continues to have high peak airway pressure in the range of 40 high plateau pressures in the range of 34, and she has marginal oxygenation chest x-ray showed pulmonary edema underlying aspiration pneumonia is not entirely ruled out hence the patient remains on antibiotics empirically and she still receiving diuretics she is also on hemodialysis because she had complete renal shutdown on this admission. Her WBC count is 11.3 hemoglobin is 11.4 her ABG today showed a pO2 of 74 pCO2 72 pH of 7.26 basic metabolic profile showed potassium of 4.9 BUN of 82 creatinine 2.77 AST is 7474 ALT is 7846 worse today compared to yesterday. This is a picture of shock liver to mention the patient presented with acute tubular necrosis and acute kidney injury. Severe metabolic acidosis and severe hyperkalemia leading to bradycardia hypotension, cardiogram showed good LV function today, ejection fraction of 60 to 65% right-sided pressures are in the range of 66. Objective - Vital Signs Vital signs: Vital Signs Temp 97.9 F 10/27/24 11:33 Pulse 86 10/27/24 14:30 Resp 30 H 10/27/24 14:30 BP 94/38 10/27/24 12:00 Pulse Ox 91 L 10/27/24 14:30 FiO2 100 10/27/24 14:30 Intake & Output 10/26/24 10/27/24 10/27/24 18:59 06:59 18:59 Intake Total 4039.550 3701.812 2113.903 Output Total 895 688 6462 Balance 3389.550 3503.812 683.903 Weight 145.15 kg Intake: IV 24 2336 221 Dextrose 5% in Water 1, 2200 200 000 ml @ 75 mls/hr IV . [id number] SUMEET with Sodium Bicarb (1 Meq/ml) 150 ml Rx#:[id number] Pressure Bag 24 36 21 cefTRIAXone 1 gm In 100 Sodium Chloride 0.9% 50 ml @ 100 mls/hr IVPB Q24HR SUMEET Rx#:[id number] Intake, IV Titration 3515.550 6183.606 4175.903 Amount Calcium Gluconate in NaCl 100 1 gm In Saline 1 100ml. bag @ 100 mls/hr IVPB ONCE ONE Rx#:[id number] Cisatracurium 200 mg In 14.806 52.254 Sodium Chloride 0.9% 180 ml @ 1 MCG/KG/MIN 8.709 mls/hr IV .[id number] SUMEET Rx #:[id number] DOPamine DRIP 800 mg In 250 250 Dextrose/Water 1 250ml. bag @ 1 MCG/KG/MIN 2.722 mls/hr IV .Q24H SUMEET Rx#: [id number] Dextrose 5% in Water 1, 2200 200 400 000 ml @ 75 mls/hr IV . [id number] SUMEET with Sodium Bicarb (1 Meq/ml) 150 ml Rx#:[id number] EPINEPHrine 4 mg In 500.000 201.215 138.978 Dextrose 5% in Water 250 ml @ 0.03 MCG/KG/MIN 16. 329 mls/hr IV .[id number] SUMEET Rx#:[id number] Midazolam HCl 50 mg In 8.55 Sodium Chloride 0.9% 40 ml @ 1 MG/HR 1 mls/hr IV .Q24H SUMEET Rx#:[id number] Piperacillin-Tazobactam 3 100 .375 gm In Sodium Chloride 0.9% 100 ml @ 25 mls/hr IVPB Q8HR SUMEET Rx# :[id number] Sodium Chloride 0.9% 1, 60 000 ml @ 20 mls/hr IV . Q24H SUMEET Rx#:[id number] Sodium Chloride 0.9% 1, 50 000 ml @ 50 mls/hr IV . Q20H [facility] Rx#:[id number] fentaNYL (PF). 1,000 mcg 100.000 187.574 In Sodium Chloride 0.9% 80 ml @ 0.5 MCG/KG/HR 7. 258 mls/hr IV .[id number] [facility] Rx#:[id number] propofoL 1,000 mg In 457.000 599.791 454.097 Empty Bag 1 bag @ 15 MCG/ KG/MIN 13.064 mls/hr IV . [id number] [facility] Rx#:[id number] Tube Feeding 20 Hemodialysis 500 400 Other 30 Output: Urine 150 198 30 Stool 0 0 Hemodialysis 500 900 Hemodialysis Net Amount 0 500 Other: Voiding Method Indwelling Catheter Indwelling Catheter Indwelling Catheter # Bowel Movements 0 ABP, PAP, CO, CI - Last Documented Arterial Blood Pressure 118/52 - Exam GENERAL: Revealed a 55-year-old female intubated, mechanically ventilated, unresponsive to any stimuli except deep painful stimuli/needlesticks. Patient is on Nimbex, propofol, fentanyl HEENT: Normocephalic, atraumatic ,Conjunctivae normal. Pupils are dilated and sluggishly reactive to light patient has anisocoria with right pupil seems to be larger than left pupil NECK: Supple, No JVD. Endotracheal tube is intact, patient has a short obese neck, no neck masses no stridor. CARDIOVASCULAR: Distant S1-S2, no S3 gallop, no murmur. RESPIRATION: Diminished breath sound bilaterally diffuse crackles rhonchi and wheezes noted bilaterally. ABDOMEN: Morbidly obese, soft, nontender,obese, nondistended ,positive Bowel sounds. LEGS: Trace of bipedal edema, diminished distal pulses bilaterally. NERVOUS SYSTEM: unable to evaluate as patient sedated and intubated, paralyzed Skin: Warm and dry, no rash Psychiatric: Could not assess. Patient is sedated on propofol and on fentanyl, and Nimbex - Labs CBC & Chem 7: 10/27/24 04:48 10/27/24 04:48 Labs: Abnormal Lab Results - Last 24 Hours (Table) 10/26/24 10/26/24 10/26/24 Range/Units 01:54 16:05 18:28 WBC (3.8-10.6) k/uL RDW (11.5-15.5) % Pathologist Review See comment A ABG pH (7.35-7.45) ABG pCO2 (35-45) mmHg ABG pO2 (83-108) mmHg ABG HCO3 (21-25) mmol/L ABG Total CO2 (19-24) mmol/L ABG O2 Saturation (94-97) % Hemoglobin (11.4-16.0) gm/dL Sodium 131 L (137-145) mmol/L Chloride 95 L (98-107) mmol/L Carbon Dioxide 20 L (22-30) mmol/L BUN 73 H (7-17) mg/dL Creatinine 2.77 H (0.52-1.04) mg/dL Glucose 343 H (74-99) mg/dL POC Glucose (mg/dL) 335 H (70-110) mg/dL Calcium 8.0 L (8.4-10.2) mg/dL AST (14-36) U/L ALT (4-34) U/L 10/26/24 10/27/24 10/27/24 Range/Units 23:09 00:56 04:47 WBC (3.8-10.6) k/uL RDW (11.5-15.5) % Pathologist Review ABG pH (7.35-7.45) ABG pCO2 (35-45) mmHg ABG pO2 74 L (83-108) mmHg ABG HCO3 29 H (21-25) mmol/L ABG Total CO2 31 H (19-24) mmol/L ABG O2 Saturation (94-97) % Hemoglobin 11.0 L (11.4-16.0) gm/dL Sodium (137-145) mmol/L Chloride (98-107) mmol/L Carbon Dioxide (22-30) mmol/L BUN (7-17) mg/dL Creatinine (0.52-1.04) mg/dL Glucose (74-99) mg/dL POC Glucose (mg/dL) 334 H 180 H (70-110) mg/dL Calcium (8.4-10.2) mg/dL AST (14-36) U/L ALT (4-34) U/L 10/27/24 10/27/24 10/27/24 Range/Units 04:48 04:48 04:48 WBC 11.3 H (3.8-10.6) k/uL RDW 18.6 H (11.5-15.5) % Pathologist Review ABG pH (7.35-7.45) ABG pCO2 (35-45) mmHg ABG pO2 (83-108) mmHg ABG HCO3 (21-25) mmol/L ABG Total CO2 (19-24) mmol/L ABG O2 Saturation (94-97) % Hemoglobin (11.4-16.0) gm/dL Sodium 131 L (137-145) mmol/L Chloride 89 L (98-107) mmol/L Carbon Dioxide 32 H (22-30) mmol/L BUN 82 H (7-17) mg/dL Creatinine 2.77 H (0.52-1.04) mg/dL Glucose 166 H (74-99) mg/dL POC Glucose (mg/dL) (70-110) mg/dL Calcium 7.5 L (8.4-10.2) mg/dL AST 7474 H (14-36) U/L ALT 7846 H (4-34) U/L 10/27/24 Range/Units 05:21 WBC (3.8-10.6) k/uL RDW (11.5-15.5) % Pathologist Review ABG pH 7.26 L (7.35-7.45) ABG pCO2 72 H* (35-45) mmHg ABG pO2 74 L (83-108) mmHg ABG HCO3 32 H (21-25) mmol/L ABG Total CO2 34 H (19-24) mmol/L ABG O2 Saturation 92.4 L (94-97) % Hemoglobin 10.9 L (11.4-16.0) gm/dL Sodium (137-145) mmol/L Chloride (98-107) mmol/L Carbon Dioxide (22-30) mmol/L BUN (7-17) mg/dL Creatinine (0.52-1.04) mg/dL Glucose (74-99) mg/dL POC Glucose (mg/dL) (70-110) mg/dL Calcium (8.4-10.2) mg/dL AST (14-36) U/L ALT (4-34) U/L Microbiology - Last 24 Hours (Table) 10/26/24 15:08 Gram Stain - Preliminary Sputum Sputum Culture - Preliminary Pseudomonas aeruginosa Assessment and Plan Assessment: Impression: Acute on chronic hypoxic respiratory failure, patient is normally on 2 L nasal cannula at home. Acute hypercapnic respiratory failure Severe bradycardia with hypovolemic shock Acute kidney injury secondary to ATN, presently on hemodialysis however not much fluid has been removed yesterday and today to improve her pulmonary status/pulmonary edema. Discussed this with network control technician performing hemodialysis. Severe acute hyperkalemia, multifactorial patient does have history of nonsteroidal anti-inflammatory drugs use and presented with bradycardia and hypotension and a picture of cardiogenic shock Shock liver, seems to be worse today compared to yesterday. Acute metabolic and respiratory acidosis as noted on ABG Recent history of knee surgery Recent urinary tract infection History of pulmonary hypertension History of alpha 1 antitrypsin deficiency History of nicotine dependence Benign essential hypertension Morbid obesity Degenerative joint disease Chronic peripheral neuropathy Chronic back pain History of migraine cephalgia History of depression History of pulmonary hypertension possible acute anoxic brain injury History of Pseudomonas in the sputum hence antibiotics were transitioned to Zosyn Recommendation: Continue ventilatory support Continue hemodynamic support Continue sedation and paralysis patient is marginal, cannot discontinue paralysis at this point. Proceed with hemodialysis Proceed with CT scan of the brain, once the patient is stable enough to have a CT of the brain in the meantime neurology is recommending EEG GI and DVT prophylaxis Insulin including Levemir insulin and NovoLog insulin for hyperglycemia Bronchodilators for underlying COPD Empiric antibiotics/Zosyn may consider adding cefepime Continue dopamine for now as long as the patient is bradycardic and hypotensive Titrate epinephrine as tolerated continue sodium bicarb drip Neurology input was appreciated Patient was updated on her condition and made aware that her condition is critical and she is extremely ill gnosis is extremely poor Continue to monitor ABGs and adjust ventilator settings accordingly Critical care time is over 30 minutes Time with Patient: Greater than 30
[2024-10-27] MEDS: fentaNYL (PF) 2,500 MCG in SODIUM CHLORIDE 0.9% 200 ML IV SCH (15:04)
[2024-10-27] MEDS: FUROSEMIDE 10 MG/ML 10 ML VIAL IV ONE (15:12)
--- NOTE | 2024-10-27 16:13 | XR ---
EXAMINATION TYPE: XR chest 1V portable DATE OF EXAM: 10/27/2024 3:55 PM COMPARISON: 10/27/2024 CLINICAL INDICATION: Female, 54 years old with history of desaturation, low O2 difficulty breathing. TECHNIQUE: XR chest 1V portable view(s) obtained. FINDINGS: The heart size is enlarge. The pulmonary vasculature is normal. Bibasilar infiltrates are present. Correlate for atelectasis. Developing pneumonia could be considere d. Endotracheal tube tip is 2.9 cm above the izabella. Nasogastric tube transverses the thorax. Right cent ral venous catheter is present with the tip in the right atrium region. IMPRESSION: 1. Bibasilar infiltrates. Correlate for atelectasis or pneumonia. 2. Lines and catheters discussed above. [facility], , 10/27/2024 4:11 PM
[2024-10-27 17:49] LABS: Glucose,Whole Blood 126 mg/dL (70-110)
--- NOTE | 2024-10-27 23:13 | PN ---
PROGRESS NOTE SUBJECTIVE: Kim is a 54-year-old lady who is admitted to hospital with complex and multiple medical problems including change in mental status changes, obstructive sleep apnea, symptomatic bradycardia, and hyperkalemia. From cardiac standpoint, she is doing better, remains in stable sinus rhythm. An echocardiogram showed normal LV systolic function and with the improvement in hyperkalemia. Her rhythm disturbances have improved. She remains intubated and is mechanically ventilated and is undergoing an EEG. OBJECTIVE: GENERAL: Patient is intubated on the vent, sedated. VITAL SIGNS: Heart rate is 80 beats per minute, blood pressure is 120/49, and respiratory rate is 18. CHEST: Diminished air entry at the bases. HEART: First and second heart sounds. No gallop. No murmur. ABDOMEN: Soft. EXTREMITIES: Did not reveal any edema. LABORATORY DATA: Hemoglobin is 11.4. Potassium is 4.9. BUN is 82 and creatinine is 2.7. ASSESSMENT: Acute onset renal failure, bradycardia secondary to hyperkalemia, metabolic acidosis, and shock liver. PLAN: Continue the current supportive measures. Stable from cardiac standpoint, does not need any pacemaker. MMODL / IJN: [id number] /
[2024-10-27 23:36] LABS: Glucose,Whole Blood 164 mg/dL (70-110)
[2024-10-28] MEDS: ARTIFICIAL TEARS-HYPROMELLOSE DROPS 15 ML BTL BOTH EYES SCH (00:10)
--- NOTE | 2024-10-28 02:28 | EEG ---
ELECTROENCEPHALOGRAM REPORT CLINICAL HISTORY: This is a 54-year-old woman with altered mental status. The video EEG is obtained to evaluate for seizure epileptiform activity. RELEVANT MEDICATION: IV Nimbex, IV propofol, IV fentanyl, and Keppra. EEG TYPE: This is a routine 21-channel EEG with video using the 10/20 electrode placement system. DESCRIPTION: The patient is intubated on a ventilator. The background consists of [id number] voltage of 6.5 to 7.5 hertz activity intermixed with delta activity. There was no physiological stage 2 sleep architecture. There is no focal slowing. There is diffuse suppression activity that is rare. Interictal and ictal is none. ACTIVATION PROCEDURE: Photic stimulation did not evoke a posterior driving response. There is no abnormality during the photic stimulation. Hyperventilation is not performed. CLINICAL INTERPRETATION: This is an abnormal routine EEG. The background slowing is suggestive of moderate encephalopathy. There is no focal slowing, epileptiform discharge, or seizure on the EEG. The diffuse suppression is likely due to medication effect (IV propofol). Clinical correlation is recommended. MMODL / IJN: [id number] /
[2024-10-28 04:30] LABS: Anisocytosis Slight; Basophils % (A) 0 %; Eosinophils # (A) 0.1 k/uL (0-0.7); Eosinophils % (A) 1 %; HCT 36.7 % (34.0-46.0); HGB 11.9 gm/dL (11.4-16.0); Hypochromasia Moderate; Lymphocytes # (A) 0.4 k/uL (1.0-4.8); Lymphocytes % (A) 3 %; MCH 27.1 pg (25.0-35.0); MCHC 32.3 g/dL (31.0-37.0); MCV 83.7 fL (80.0-100.0); Mean Platelet Volume 10.3; Microcytosis Slight; Monocytes # (A) 0.2 k/uL (0-1.0); Monocytes % (A) 2 %; Neutrophils # (A) 10.5 k/uL (1.3-7.7); Neutrophils % (A) 94 %; Platelet Count 177 k/uL (150-450); RBC 4.39 m/uL (3.80-5.40); RDW 18.4 % (11.5-15.5); WBC 11.2 k/uL (3.8-10.6)
[2024-10-28 04:45] LABS: African American GFR (CKD) 18 (>60 ml/min/1.73 sqM); Albumin 2.9 g/dL (3.5-5.0); Alkaline Phosphatase 268 U/L (38-126); Anion Gap 6 mmol/L; Blood Urea Nitrogen 71 mg/dL (7-17); Calcium 7.4 mg/dL (8.4-10.2); Carbon Dioxide 26 mmol/L (22-30); Chloride 92 mmol/L (98-107); Glucose 174 mg/dL (74-99); Non-African American GFR(CKD) 16 (>60 ml/min/1.73 sqM); Sodium 124 mmol/L (137-145); Total Bilirubin 2.2 mg/dL (0.2-1.3); Total Protein 5.7 g/dL (6.3-8.2)
[2024-10-28 05:13] LABS: ALT 8772 U/L (4-34); AST 5400 U/L (14-36)
[2024-10-28 05:18] LABS: Potassium 6.6 mmol/L (3.5-5.1)
[2024-10-28 05:35] LABS: ABG Base Excess 1.2 mmol/L; ABG HCO3 28 mmol/L (21-25); ABG Oxygen Saturation 84.3 % (94-97); ABG PCO2 50 mmHg (35-45); ABG PH 7.35 (7.35-7.45); ABG TCO2 29 mmol/L (19-24)
[2024-10-28 05:39] LABS: ABG PO2 54 mmHg (83-108)
[2024-10-28] MEDS: INSULIN REGULAR 100 UNIT/ML VIAL (IV) IV ONE (05:50)
[2024-10-28] MEDS: DEXTROSE 50% SYRINGE 50 ML IVP STA (05:55)
[2024-10-28] MEDS: CALCIUM GLUCONATE IN NACL 1 GM in SALINE 1 100ML.BAG IVPB ONE (06:04)
[2024-10-28] MEDS: SODIUM ZIRCONIUM CYCLOSILICATE 10 GM PACKET PO ONE ×2 (06:12→18:17)
[2024-10-28 06:16] LABS: Glucose,Whole Blood 233 mg/dL (70-110)
--- NOTE | 2024-10-28 07:48 | XR ---
EXAMINATION TYPE: XR chest 1V portable DATE OF EXAM: 10/28/2024 4:20 AM COMPARISON: 10/27/2024 CLINICAL INDICATION: Female, 54 years old with history of Tube placement, , FINDINGS: ET tube and NG tube are satisfactory. Right-sided CVC tip estimated to the cavoatrial junction but no t as well-seen on the present exam. Heart mild to moderately enlarged. Ongoing interstitial and patch y opacities especially at the lower lungs left greater than right along with blunted costophrenic ang les. IMPRESSION: 1. Cardiomegaly and ongoing interstitial and patchy opacities, consider CHF with pulmonary vascular c ongestion. 2. Continued small effusions with adjacent atelectasis and/or consolidation. [facility], , 10/28/2024 7:45 AM
--- NOTE | 2024-10-28 10:14 | P.PN ---
Subjective Patient is seen in follow-up for acute kidney injury. Started on hemodialysis October 26, 2024. Remains on dopamine drip. Epinephrine discontinued. Off IV fluids. Receiving tube feeds. Remains oliguric. Undergoing hemodialysis. Vital signs are stable. General: Resting in bed. HEENT: Intubated. LUNGS: Scattered rhonchi. HEART: Rate and Rhythm are regular. ABDOMEN: Obese. EXTREMITITES: 1+ edema. Objective - Vital Signs Vital signs: Vital Signs Temp 98.8 F 10/28/24 08:00 Pulse 80 10/28/24 08:36 Resp 30 H 10/28/24 08:15 BP 107/57 10/28/24 08:15 Pulse Ox 86 L 10/28/24 08:15 FiO2 100 10/28/24 08:33 Intake & Output 10/27/24 10/28/24 10/28/24 18:59 06:59 18:59 Intake Total 2948.336 2055.316 507.429 Output Total 1505 120 20 Balance 1694.523 1421.316 487.429 Weight 183.5 kg Intake: IV 339 233 106 Calcium Gluconate in NaCl 100 1 gm In Saline 1 100ml. bag @ 100 mls/hr IVPB ONCE ONE Rx#:[id number] Dextrose 5% in Water 1, 200 000 ml @ 75 mls/hr IV . [id number] SUMEET with Sodium Bicarb (1 Meq/ml) 150 ml Rx#:[id number] Piperacillin-Tazobactam 3 100 100 .375 gm In Sodium Chloride 0.9% 100 ml @ 25 mls/hr IVPB Q8H [facility] Rx#: [id number] Pressure Bag 39 33 6 cefTRIAXone 1 gm In 100 Sodium Chloride 0.9% 50 ml @ 100 mls/hr IVPB Q24HR [facility] Rx#:[id number] Intake, IV Titration 2079.336 1452.316 401.429 Amount Cisatracurium 200 mg In 127.372 249.803 Sodium Chloride 0.9% 180 ml @ 1 MCG/KG/MIN 8.709 mls/hr IV .[id number] [facility] Rx #:[id number] DOPamine DRIP 800 mg In 233.15 293.999 Dextrose/Water 1 250ml. bag @ 1 MCG/KG/MIN 2.722 mls/hr IV .Q24H [facility] Rx#: [id number] Dextrose 5% in Water 1, 400 000 ml @ 75 mls/hr IV . [id number] SUMEET with Sodium Bicarb (1 Meq/ml) 150 ml Rx#:[id number] EPINEPHrine 4 mg In 147.143 Dextrose 5% in Water 250 ml @ 0.03 MCG/KG/MIN 16. 329 mls/hr IV .[id number] [facility] Rx#:[id number] Piperacillin-Tazobactam 3 100 .375 gm In Sodium Chloride 0.9% 100 ml @ 25 mls/hr IVPB Q8HR [facility] Rx# :[id number] Sodium Chloride 0.9% 1, 180 000 ml @ 20 mls/hr IV . Q24H [facility] Rx#:[id number] Sodium Chloride 0.9% 1, 50 000 ml @ 50 mls/hr IV . Q20H [facility] Rx#:[id number] fentaNYL (PF) 2,500 mcg 250 225.95 In Sodium Chloride 0.9% 200 ml @ 2 MCG/KG/HR 29. 03 mls/hr IV .[id number] [facility] Rx#:[id number] fentaNYL (PF). 1,000 mcg 187.574 In Sodium Chloride 0.9% 80 ml @ 0.5 MCG/KG/HR 7. 258 mls/hr IV .[id number] [facility] Rx#:[id number] propofoL 1,000 mg In 654.097 658.514 175.479 Empty Bag 1 bag @ 15 MCG/ KG/MIN 13.064 mls/hr IV . Q7H40M [facility] Rx#:[id number] Tube Feeding 70 190 Hemodialysis 400 Other 60 180 Output: Urine 105 120 20 Stool 0 Hemodialysis 900 Hemodialysis Net Amount 500 Other: Voiding Method Indwelling Catheter Indwelling Catheter # Bowel Movements 0 ABP, PAP, CO, CI - Last Documented Arterial Blood Pressure 134/68 - Labs CBC & Chem 7: 10/28/24 04:20 10/28/24 04:20 Labs: Abnormal Lab Results - Last 24 Hours (Table) 10/27/24 10/27/24 10/27/24 Range/Units 04:48 17:48 23:35 WBC (3.8-10.6) k/uL RDW (11.5-15.5) % Neutrophils # (1.3-7.7) k/uL Lymphocytes # (1.0-4.8) k/uL ABG pCO2 (35-45) mmHg ABG pO2 (83-108) mmHg ABG HCO3 (21-25) mmol/L ABG Total CO2 (19-24) mmol/L ABG O2 Saturation (94-97) % Sodium (137-145) mmol/L Potassium (3.5-5.1) mmol/L Chloride (98-107) mmol/L BUN (7-17) mg/dL Creatinine (0.52-1.04) mg/dL Glucose (74-99) mg/dL POC Glucose (mg/dL) 126 H 164 H (70-110) mg/dL Calcium (8.4-10.2) mg/dL Total Bilirubin (0.2-1.3) mg/dL AST 7474 H (14-36) U/L ALT 7846 H (4-34) U/L Alkaline Phosphatase (38-126) U/L Total Protein (6.3-8.2) g/dL Albumin (3.5-5.0) g/dL 10/28/24 10/28/24 10/28/24 Range/Units 04:20 04:20 04:24 WBC 11.2 H (3.8-10.6) k/uL RDW 18.4 H (11.5-15.5) % Neutrophils # 10.5 H (1.3-7.7) k/uL Lymphocytes # 0.4 L (1.0-4.8) k/uL ABG pCO2 50 H (35-45) mmHg ABG pO2 54 L* (83-108) mmHg ABG HCO3 28 H (21-25) mmol/L ABG Total CO2 29 H (19-24) mmol/L ABG O2 Saturation 84.3 L (94-97) % Sodium 124 L (137-145) mmol/L Potassium 6.6 H* (3.5-5.1) mmol/L Chloride 92 L (98-107) mmol/L BUN 71 H (7-17) mg/dL Creatinine 3.20 H (0.52-1.04) mg/dL Glucose 174 H (74-99) mg/dL POC Glucose (mg/dL) (70-110) mg/dL Calcium 7.4 L (8.4-10.2) mg/dL Total Bilirubin 2.2 H (0.2-1.3) mg/dL AST 5400 H (14-36) U/L ALT 8772 H (4-34) U/L Alkaline Phosphatase 268 H (38-126) U/L Total Protein 5.7 L (6.3-8.2) g/dL Albumin 2.9 L (3.5-5.0) g/dL 10/28/24 Range/Units 06:14 WBC (3.8-10.6) k/uL RDW (11.5-15.5) % Neutrophils # (1.3-7.7) k/uL Lymphocytes # (1.0-4.8) k/uL ABG pCO2 (35-45) mmHg ABG pO2 (83-108) mmHg ABG HCO3 (21-25) mmol/L ABG Total CO2 (19-24) mmol/L ABG O2 Saturation (94-97) % Sodium (137-145) mmol/L Potassium (3.5-5.1) mmol/L Chloride (98-107) mmol/L BUN (7-17) mg/dL Creatinine (0.52-1.04) mg/dL Glucose (74-99) mg/dL POC Glucose (mg/dL) 233 H (70-110) mg/dL Calcium (8.4-10.2) mg/dL Total Bilirubin (0.2-1.3) mg/dL AST (14-36) U/L ALT (4-34) U/L Alkaline Phosphatase (38-126) U/L Total Protein (6.3-8.2) g/dL Albumin (3.5-5.0) g/dL Microbiology - Last 24 Hours (Table) 10/26/24 15:08 Gram Stain - Final Sputum Sputum Culture - Final Pseudomonas aeruginosa 10/26/24 15:54 Blood Culture - Preliminary Blood Assessment and Plan Plan: Assessment: 1. Acute kidney injury secondary to ATN secondary to bradycardia, hypotension further worsen with the use of NSAIDs and diuretics. Baseline creatinine 0.7- 0.8 and 3.31 on admission. Oliguric. Started on hemodialysis October 26, 2024 via femoral dialysis catheter. No hydronephrosis noted on kidney ultrasound. 2. Hyperkalemia secondary to acute kidney injury, acidosis, NSAIDs, potassium supplementation. 3. Bradycardia secondary to hyperkalemia. Improved. 4. Metabolic acidosis secondary to acute kidney injury. Status post bicarb drip. Improved. 5. Shock liver. 6. Recent right knee surgery with subsequent fall. Will need further intervention in the future. Plan: Continue with daily dialysis for now. Challenge ultrafiltration. Maintain tube feeds. Monitor for renal recovery. Wean FiO2 and vasopressors. Preserved ejection fraction noted on echocardiogram. Avoid nephrotoxins. IV Lasix given October 27, 2024 with minimal response in urine output. Repeat BMP this afternoon.
[2024-10-28 12:32] LABS: Glucose,Whole Blood 158 mg/dL (70-110)
[2024-10-28] MEDS: LEVOTHYROXINE 50 MCG TAB PO SCH (12:53)
--- NOTE | 2024-10-28 13:04 | P.PN ---
Subjective Progress Note Date: 10/28/24 Principal diagnosis: Acute on chronic hypoxic respiratory failure and acute hypercapnic respiratory failure with hypovolemic shock and severe bradycardia This is a 54-year-old female with history of multiple medical problems including COPD, chronic pain syndrome, dyslipidemia, bipolar disorder, hypertension, patient was brought into the ER yesterday mostly with change in mental status and according to family patient has been confused for the last 2 days, patient has been hallucinating and upon arrival to the ER she was noted to be severely bradycardic and hypotensive. Patient remained bradycardic, patient was seen by cardiology on consultation for her bradycardia, patient was taken to the [facility], her blood pressure was 120 on norepinephrine, decision was made to hold her pacemaker insertion. Previous cardiac workup from previous records has shown preserved systolic function and no documented ischemic heart disease. When labs were reviewed, patient was noted to have hyperkalemia and acute renal failure, shock liver profile, patient was intubated in the ER, she was eventually transferred to the ICU after she went to cardiac cath. But again pacemaker insertion was placed on hold. Patient is now intubated mechanically ventilated, she is on assist-control rate of 22 tidal volume 500 FiO2 100% and PEEP of 8 ABG showed a pO2 of 87 pCO2 53 pH of 7.14, her rate was increased to 26, patient received 1 amp of bicarb, and she was already on bicarb drip. Patient is on multiple drips including dopamine at 10 mcg/kg/min, propofol at 45 mg/kg/min Versed which I have discontinued 3 mg/h patient is also receiving epinephrine at 0.12 mcg/kg/min receiving 3 A of bicarb in D5W at 200 cc/h patient is hyperkalemic and follow-up sodium remains above 6, although the patient received the hyperkalemia protocol. Her initial potassium was 8.6 on her initial presentation. Patient already had a hemodialysis catheter placed by vascular surgery in the left groin, and she has a right IJ triple-lumen catheter. I went ahead and placed a right radial arterial line. Patient is scheduled to undergo hemodialysis today, patient is not responsive to any stimuli except deep painful stimuli noted while I was placing an arterial line, patient withdraws to painful stimuli/needlestick. Pupils are dilated and sluggishly reactive. Looking back at her history patient had total knee arthroplasty 3 months ago and she had a fall about a week ago may have sustained head injury however CT of the brain is pending patient is to be seen by neurology on consultation today. And she is being seen by many consultants including nephrology and cardiology. Overall picture is extremely poor and guarded. And the patient is critically ill. Blood sugars are running high as 336 liver enzymes are elevated including a bilirubin of 2.2 AST of 3715 ALT of 4016 and alkaline phosphatase of 155 Patient seen today on 10/27/2024, patient remains in the ICU, intubated and mecha nically ventilated sedated and paralyzed. Patient developed worsening pulmonary edema over the last 24 hours, hence she required higher FiO2 of 100% higher PEEP of 12 and she remains marginal as far as oxygenation is concerned. Patient is undergoing hemodialysis today no fluid was removed yesterday, and nephrology is planning to remove only 500 cc of fluid today. Patient remains on dopamine at 10 mcg/kg/min epinephrine at 0.02 mcg/kg/min Fentanyl at 2 mcg/kg/h propofol at 75 mcg/kg/min remains on Nimbex at 1 mcg/kg per minute and was supposed to have a CT of the brain yesterday, however the portion was relatively unstable could not have the CT of the brain done yesterday mostly because of arrhythmia and hypotension had to be brought back up to the ICU and she had to be paralyzed. Overall condition is not promising, actually her condition seems to be worse today compared to yesterday. Patient was seen by neurology on consultation still entertaining the possibility of anoxic brain injury due to severe hypoxia. The patient has anisocoria with right pupil larger than the left pupil full adequate neurological exam could not be fully done mostly because of the fact the patient is on Nimbex Fentanyl and propofol. Patient could not come off Nimbex mostly because could not be ventilated yesterday in spite of multiple sedatives including propofol and fentanyl. These were relatively high doses. She was very asynchronous with the ventilator, breathing over 40/min, had to be given Nimbex otherwise could not ventilate the patient. Today continues to have high peak airway pressure in the range of 40 high plateau pressures in the range of 34, and she has marginal oxygenation chest x-ray showed pulmonary edema underlying aspiration pneumonia is not entirely ruled out hence the patient remains on antibiotics empirically and she still receiving diuretics she is also on hemodialysis because she had complete renal shutdown on this admission. Her WBC count is 11.3 hemoglobin is 11.4 her ABG today showed a pO2 of 74 pCO2 72 pH of 7.26 basic metabolic profile showed potassium of 4.9 BUN of 82 creatinine 2.77 AST is 7474 ALT is 7846 worse today compared to yesterday. This is a picture of shock liver to mention the patient presented with acute tubular necrosis and acute kidney injury. Severe metabolic acidosis and severe hyperkalemia leading to bradycardia hypotension, cardiogram showed good LV function today, ejection fraction of 60 to 65% right-sided pressures are in the range of 66. Patient was seen today on 10/28/2024, remains in the ICU, remains intubated and mechanically ventilated. Patient is on assist-control rate of 3 0 tidal volume 400 FiO2 100% and PEEP of 15. However considering her relatively high peak airway pressure and plateau pressures I switched the patient to a pressure control mode of mechanical ventilation with PI of 23 TI 0.7 rate remains 33 and PEEP remains at 15. ABG earlier today showed a pO2 of 54 pCO2 50 pH of 7.35. Patient remains on Decadron remains on Zosyn, sputum is positive for Pseudomonas aeruginosa patient remains extremely oliguric 5 to 10 cc/h. He did not improve with Lasix yesterday. Remains on dialysis and she will have dialysis again today. Did not do a CT of the brain and could not do a CT of the chest mostly because of her instability. Recommending a venous Doppler to be done today. Time patient remains on Nimbex at 2 mcg/kg/min and dopamine 7.5 mcg/kg/min and I am cutting it down to 5 fentanyl at 2 mcg/kg/h propofol at 65 mcg/kg/min he is off epinephrine. Could use norepinephrine if necessary for low blood pressure. Right now she is only on dopamine which is to be tapered down to a renal perf usion dose if possible. This x-ray continues to show cardiomegaly and evidence of pulmonary edema, small bilateral pleural effusions and atelectasis. WBC count is 11.2 hemoglobin 11.9, sodium 124 potassium 6.6 enzymes remain elevated. Profile is abnormal with a BUN of 71 creatinine 3.20 patient is undergoing hemodialysis again today Objective - Vital Signs Vital signs: Vital Signs Temp 98.7 F 10/28/24 11:30 Pulse 86 10/28/24 12:21 Resp 30 H 10/28/24 11:30 BP 124/57 10/28/24 11:30 Pulse Ox 87 L 10/28/24 11:00 FiO2 100 10/28/24 12:09 Intake & Output 10/27/24 10/28/24 10/28/24 18:59 06:59 18:59 Intake Total 2948.336 2055.316 1404.178 Output Total 5234 956 5632 Balance 0168.699 9849.316 -4238.822 Weight 183.5 kg Intake: IV 339 233 115 Calcium Gluconate in NaCl 100 1 gm In Saline 1 100ml. bag @ 100 mls/hr IVPB ONCE ONE Rx#:[id number] Dextrose 5% in Water 1, 200 000 ml @ 75 mls/hr IV . [id number] SUMEET with Sodium Bicarb (1 Meq/ml) 150 ml Rx#:[id number] Piperacillin-Tazobactam 3 100 100 .375 gm In Sodium Chloride 0.9% 100 ml @ 25 mls/hr IVPB Q8H [facility] Rx#: [id number] Pressure Bag 39 33 15 cefTRIAXone 1 gm In 100 Sodium Chloride 0.9% 50 ml @ 100 mls/hr IVPB Q24HR [facility] Rx#:[id number] Intake, IV Titration 2079.336 1452.316 889.178 Amount Cisatracurium 200 mg In 127.372 249.803 141.667 Sodium Chloride 0.9% 180 ml @ 1 MCG/KG/MIN 8.709 mls/hr IV .[id number] [facility] Rx #:[id number] DOPamine DRIP 800 mg In 233.15 293.999 177.198 Dextrose/Water 1 250ml. bag @ 1 MCG/KG/MIN 2.722 mls/hr IV .Q24H [facility] Rx#: [id number] Dextrose 5% in Water 1, 400 000 ml @ 75 mls/hr IV . [id number] [facility] with Sodium Bicarb (1 Meq/ml) 150 ml Rx#:[id number] EPINEPHrine 4 mg In 147.143 Dextrose 5% in Water 250 ml @ 0.03 MCG/KG/MIN 16. 329 mls/hr IV .[id number] [facility] Rx#:[id number] Piperacillin-Tazobactam 3 100 .375 gm In Sodium Chloride 0.9% 100 ml @ 25 mls/hr IVPB Q8HR [facility] Rx# :[id number] Sodium Chloride 0.9% 1, 180 000 ml @ 20 mls/hr IV . Q24H [facility] Rx#:[id number] Sodium Chloride 0.9% 1, 50 000 ml @ 50 mls/hr IV . Q20H [facility] Rx#:[id number] fentaNYL (PF) 2,500 mcg 250 225.95 In Sodium Chloride 0.9% 200 ml @ 2 MCG/KG/HR 29. 03 mls/hr IV .Q8H37M [facility] Rx#:[id number] fentaNYL (PF). 1,000 mcg 187.574 In Sodium Chloride 0.9% 80 ml @ 0.5 MCG/KG/HR 7. 258 mls/hr IV .[id number] [facility] Rx#:[id number] propofoL 1,000 mg In 654.097 658.514 344.363 Empty Bag 1 bag @ 15 MCG/ KG/MIN 13.064 mls/hr IV . Q7H40M [facility] Rx#:[id number] Tube Feeding 70 190 Hemodialysis 400 400 Other 60 180 Output: Urine 105 120 43 Stool 0 Hemodialysis 900 3000 Hemodialysis Net Amount 500 2600 Other: Voiding Method Indwelling Catheter Indwelling Catheter Indwelling Catheter # Bowel Movements 0 ABP, PAP, CO, CI - Last Documented Arterial Blood Pressure 122/56 - Exam GENERAL: Revealed a 55-year-old female intubated, mechanically ventilated, unresponsive to any stimuli except deep painful stimuli/needlesticks. Patient is on Nimbex, propofol, fentanyl HEENT: Normocephalic, atraumatic ,Conjunctivae normal. Pupils are reactive to light today improved compared to yesterday but sluggish NECK: Supple, No JVD. Endotracheal tube is intact, patient has a short obese neck, no neck masses no stridor. CARDIOVASCULAR: Distant S1-S2, no S3 gallop, no murmur. RESPIRATION: Diminished breath sound bilaterally rhonchi and wheezes noted bilaterally ABDOMEN: Morbidly obese, soft, nontender,obese, nondistended ,positive Bowel sounds. LEGS: Trace of bipedal edema, diminished distal pulses bilaterally. NERVOUS SYSTEM: unable to evaluate as patient sedated and intubated, paralyzed Skin: Warm and dry, no rash Psychiatric: Could not assess. Patient is sedated on propofol and on fentanyl, and Nimbex - Labs CBC & Chem 7: 10/28/24 04:20 10/28/24 04:20 Labs: Abnormal Lab Results - Last 24 Hours (Table) 10/27/24 10/27/24 10/27/24 Range/Units 04:48 17:48 23:35 WBC (3.8-10.6) k/uL RDW (11.5-15.5) % Neutrophils # (1.3-7.7) k/uL Lymphocytes # (1.0-4.8) k/uL ABG pCO2 (35-45) mmHg ABG pO2 (83-108) mmHg ABG HCO3 (21-25) mmol/L ABG Total CO2 (19-24) mmol/L ABG O2 Saturation (94-97) % Sodium (137-145) mmol/L Potassium (3.5-5.1) mmol/L Chloride (98-107) mmol/L BUN (7-17) mg/dL Creatinine (0.52-1.04) mg/dL Glucose (74-99) mg/dL POC Glucose (mg/dL) 126 H 164 H (70-110) mg/dL Calcium (8.4-10.2) mg/dL Total Bilirubin (0.2-1.3) mg/dL AST 7474 H (14-36) U/L ALT 7846 H (4-34) U/L Alkaline Phosphatase (38-126) U/L Total Protein (6.3-8.2) g/dL Albumin (3.5-5.0) g/dL 10/28/24 10/28/24 10/28/24 Range/Units 04:20 04:20 04:24 WBC 11.2 H (3.8-10.6) k/uL RDW 18.4 H (11.5-15.5) % Neutrophils # 10.5 H (1.3-7.7) k/uL Lymphocytes # 0.4 L (1.0-4.8) k/uL ABG pCO2 50 H (35-45) mmHg ABG pO2 54 L* (83-108) mmHg ABG HCO3 28 H (21-25) mmol/L ABG Total CO2 29 H (19-24) mmol/L ABG O2 Saturation 84.3 L (94-97) % Sodium 124 L (137-145) mmol/L Potassium 6.6 H* (3.5-5.1) mmol/L Chloride 92 L (98-107) mmol/L BUN 71 H (7-17) mg/dL Creatinine 3.20 H (0.52-1.04) mg/dL Glucose 174 H (74-99) mg/dL POC Glucose (mg/dL) (70-110) mg/dL Calcium 7.4 L (8.4-10.2) mg/dL Total Bilirubin 2.2 H (0.2-1.3) mg/dL AST 5400 H (14-36) U/L ALT 8772 H (4-34) U/L Alkaline Phosphatase 268 H (38-126) U/L Total Protein 5.7 L (6.3-8.2) g/dL Albumin 2.9 L (3.5-5.0) g/dL 10/28/24 10/28/24 Range/Units 06:14 12:29 WBC (3.8-10.6) k/uL RDW (11.5-15.5) % Neutrophils # (1.3-7.7) k/uL Lymphocytes # (1.0-4.8) k/uL ABG pCO2 (35-45) mmHg ABG pO2 (83-108) mmHg ABG HCO3 (21-25) mmol/L ABG Total CO2 (19-24) mmol/L ABG O2 Saturation (94-97) % Sodium (137-145) mmol/L Potassium (3.5-5.1) mmol/L Chloride (98-107) mmol/L BUN (7-17) mg/dL Creatinine (0.52-1.04) mg/dL Glucose (74-99) mg/dL POC Glucose (mg/dL) 233 H 158 H (70-110) mg/dL Calcium (8.4-10.2) mg/dL Total Bilirubin (0.2-1.3) mg/dL AST (14-36) U/L ALT (4-34) U/L Alkaline Phosphatase (38-126) U/L Total Protein (6.3-8.2) g/dL Albumin (3.5-5.0) g/dL Microbiology - Last 24 Hours (Table) 10/26/24 15:08 Gram Stain - Final Sputum Sputum Culture - Final Pseudomonas aeruginosa 10/26/24 15:54 Blood Culture - Preliminary Blood Assessment and Plan Assessment: Impression: Acute on chronic hypoxic respiratory failure, patient is normally on 2 L nasal cannula at home. Acute hypercapnic respiratory failure Severe bradycardia with hypovolemic shock Acute kidney injury secondary to ATN, hemodialysis now. Severe acute hyperkalemia, multifactorial patient does have history of nonsteroidal anti-inflammatory drugs use and presented with bradycardia and hypotension and a picture of cardiogenic shock Shock liver, seems to be worse today compared to yesterday. Acute metabolic and respiratory acidosis as noted on ABG Recent history of knee surgery Recent urinary tract infection History of pulmonary hypertension History of alpha 1 antitrypsin deficiency History of nicotine dependence Benign essential hypertension Morbid obesity Degenerative joint disease Chronic peripheral neuropathy Chronic back pain History of migraine cephalgia History of depression History of pulmonary hypertension possible acute anoxic brain injury History of Pseudomonas in the sputum hence antibiotics were transitioned to Zosyn Recommendation: Continue ventilatory support Continue hemodynamic support, patient is now only on dopamine Prefer to get a CT of the head and CT of the chest however patient is not stable enough to have this done we will ask for venous Doppler of lower extremities today Continue sedation and paralysis Continue hemodialysis Proceed with CT scan of the brain, and CTA chest once the patient is stable enough to have a CT of the brain in the meantime neurology is recommending EEG GI and DVT prophylaxis Insulin including Levemir insulin and NovoLog insulin for hyperglycemia Bronchodilators for underlying COPD Continue Zosyn for Pseudomonas in the sputum, possible underlying pseudomonal pneumonia Titrate dopamine to a renal perfusion dose Epinephrine was discontinued, could use norepinephrine if necessary for low bl ood pressure Neurology continues to follow Mother was updated on the patient's condition Continue to monitor ABGs and adjust ventilator settings accordingly Critical care time is over 30 minutes Time with Patient: Greater than 30
--- NOTE | 2024-10-28 13:07 | US ---
EXAMINATION TYPE: US venous doppler duplex LE BI DATE OF EXAM: 10/28/2024 12:42 PM COMPARISON: NONE CLINICAL INDICATION: Female, 54 years old with history of R/O DVT; 400lb intubated ICU patient with s wollen legs, had dialysis today, no h/o DVT TECHNIQUE: The lower extremity deep venous system is examined utilizing real time linear array sonog carlita with graded compression, color doppler sonography, and spectral doppler. SIDE PERFORMED: Bilateral FINDINGS: VESSELS IMAGED (attempted): Common Femoral Vein Deep Femoral Vein Greater Saphenous Vein * Femoral Vein Popliteal Vein Small Saphenous Vein * Proximal Calf Veins (* superficial vessels) Plater Barrel notes: Unable to assess vessels at this time. Patient has extensive edema and body habitu s limits exam. IMPRESSION: Very large patient body habitus and soft tissue edema. Nondiagnostic exam. Unable to presently assess the vessels of the lower extremities. [facility], , 10/28/2024 1:04 PM
[2024-10-28] MEDS: PIPERACILLIN-TAZOBACTAM 3.375 GM in SODIUM CHLORIDE 0.9% 100 ML IVPB SCH (13:08)
[2024-10-28 13:12] LABS: ABG Base Excess 1.9 mmol/L; ABG HCO3 29 mmol/L (21-25); ABG Oxygen Saturation 88.1 % (94-97); ABG PCO2 56 mmHg (35-45); ABG PH 7.32 (7.35-7.45); ABG PO2 61 mmHg (83-108); ABG TCO2 31 mmol/L (19-24); Allen Test Performed? Yes
[2024-10-28 13:53] LABS: African American GFR (CKD) 25 (>60 ml/min/1.73 sqM); Anion Gap 6 mmol/L; Blood Urea Nitrogen 47 mg/dL (7-17); Calcium 7.5 mg/dL (8.4-10.2); Carbon Dioxide 28 mmol/L (22-30); Chloride 93 mmol/L (98-107); Glucose 162 mg/dL (74-99); Non-African American GFR(CKD) 21 (>60 ml/min/1.73 sqM); Potassium 5.2 mmol/L (3.5-5.1); Sodium 127 mmol/L (137-145)
--- NOTE | 2024-10-28 14:56 | P.PN ---
Subjective Progress Note Date: 10/27/24 H&P Date: 10/26/24 This is a 54-year-old female with past medical history significant for recent knee surgery proximately within the last 3 months with fall postoperatively 1 week ago, osteoarthritis, treated for UTI outpatient last week with Macrobid, COPD, migraines, hypertension, osteoarthritis, morbid obesity, sleep apnea, anxiety, depression, nicotine dependence and multiple other medical issues brought into the ER via EMS with reports of confusion, hallucinations, hypoxia, hypotension. Family reports patient nauseated and dizzy since Saturday night. on EMS arrival, reported systolic blood pressure of 80s, O2 sats of 70% on room air, placed on nonrebreather, EKG reported severe bradycardia with heart rates in the 20s and 30s. ER reports ,on arrival patient was alert and oriented to person and place, reported she had taken an additional [place] as well as an additional Flexeril for knee pain. Creatinine 3.24 on admission, currently at 3.3, baseline 0.7. Hyperkalemic cocktail administered for potassium at 8.6 , currently down to 6.3. EKG reported wide-complex bradycardia, junctional. ABGs reported pH of 7.14, pCO2 53, pO2 87, bicarb 18, total CO2 20 O2 sat 94 with a base excess of -11.1 on 70% FiO2. patient was intubated, taken to the [employer] for transvenous pacer, but spontaneously converted to sinus rhythm. Currently ventilator dependent with FiO2 100%/+8 with PEEP. Maintained on epinephrine and dopamine. Continues on bicarb drip. chest x-ray reported cardiomegaly, worsening pulmonary edema versus massive pneumonia ,antibiotics initiated. Hemo globin A1c 6.0. T. bili 2.2, AST 3715, ALT 4016, alk phos 155. Hepatitis panel in progress. troponin negative x 1. TSH 9.660, free T4 1.35. 10/27/2024 Vent dependent .hemodialysis initiated yesterday. Maintained on bicarb drip, acidosis improving, bicarb 32, discontinued. Continues on dopamine and epinephrine drips echo reporting normal LV function, RVSP 66. Chest x-ray reporting persistent moderate large amount airspace opacities throughout both lungs more on the right, similar. Objective - Vital Signs Vital signs: Vital Signs Temp 98.1 F 10/27/24 04:00 Pulse 80 10/27/24 11:00 Resp 30 H 10/27/24 11:00 BP 100/40 10/27/24 09:00 Pulse Ox 92 L 10/27/24 11:00 FiO2 100 10/27/24 11:00 Intake & Output 10/26/24 10/27/24 10/27/24 18:59 06:59 18:59 Intake Total 4039.550 3701.812 1296.256 Output Total 650 198 20 Balance 3389.550 3503.812 1276.256 Weight 145.15 kg Intake: IV 24 2336 215 Dextrose 5% in Water 1, 2200 200 000 ml @ 75 mls/hr IV . [id number] SUMEET with Sodium Bicarb (1 Meq/ml) 150 ml Rx#:[id number] Pressure Bag 24 36 15 cefTRIAXone 1 gm In 100 Sodium Chloride 0.9% 50 ml @ 100 mls/hr IVPB Q24HR SUMEET Rx#:[id number] Intake, IV Titration 3515.550 9313.306 0156.256 Amount Calcium Gluconate in NaCl 100 1 gm In Saline 1 100ml. bag @ 100 mls/hr IVPB ONCE ONE Rx#:[id number] Cisatracurium 200 mg In 14.806 52.254 Sodium Chloride 0.9% 180 ml @ 1 MCG/KG/MIN 8.709 mls/hr IV .[id number] SUMEET Rx #:[id number] DOPamine DRIP 800 mg In 250 250 Dextrose/Water 1 250ml. bag @ 1 MCG/KG/MIN 2.722 mls/hr IV .Q24H SUMEET Rx#: [id number] Dextrose 5% in Water 0 200 400 000 ml @ 75 mls/hr IV . [id number] SUMEET with Sodium Bicarb (1 Meq/ml) 150 ml Rx#:[id number] EPINEPHrine 4 mg In 500.000 201.215 82.280 Dextrose 5% in Water 250 ml @ 0.03 MCG/KG/MIN 16. 329 mls/hr IV .[id number] SUMEET Rx#:[id number] Midazolam HCl 50 mg In 8.55 Sodium Chloride 0.9% 40 ml @ 1 MG/HR 1 mls/hr IV .Q24H SUMEET Rx#:[id number] Piperacillin-Tazobactam 3 100 .375 gm In Sodium Chloride 0.9% 100 ml @ 25 mls/hr IVPB Q8HR SUMEET Rx# :[id number] Sodium Chloride 0.9% 1, 20 000 ml @ 20 mls/hr IV . Q24H [facility] Rx#:[id number] Sodium Chloride 0.9% 1, 50 000 ml @ 50 mls/hr IV . Q20H SUMEET Rx#:[id number] fentaNYL (PF). 1,000 mcg 100.000 100 In Sodium Chloride 0.9% 80 ml @ 0.5 MCG/KG/HR 7. 258 mls/hr IV .[id number] SUMEET Rx#:[id number] propofoL 1,000 mg In 457.000 599.791 276.722 Empty Bag 1 bag @ 15 MCG/ KG/MIN 13.064 mls/hr IV . Q7H40M [facility] Rx#:[id number] Hemodialysis 500 Output: Urine 150 198 20 Stool 0 Hemodialysis 500 Hemodialysis Net Amount 0 Other: Voiding Method Indwelling Catheter Indwelling Catheter Indwelling Catheter # Bowel Movements 0 ABP, PAP, CO, CI - Last Documented Arterial Blood Pressure 106/43 - Exam PHYSICAL EXAM: VITAL SIGNS: As above GENERAL: Intubated and sedated. HEENT: Normocephalic, atraumatic ,Conjunctivae normal. NECK: Supple, No JVD. CARDIOVASCULAR: S1, S2 regular.No murmur. RESPIRATION: Unlabored, equal air entry, scattered rhonchi ABDOMEN: Soft, nontender,obese, nondistended ,positive Bowel sounds. LEGS: No edema, no calf tenderness, positive DP pulses. NERVOUS SYSTEM: unable to evaluate as patient sedated and intubated Skin: Warm and dry, no rash - Labs CBC & Chem 7: 10/27/24 04:48 10/27/24 04:48 Labs: Abnormal Lab Results - Last 24 Hours (Table) 10/26/24 10/26/24 10/26/24 Range/Units 01:54 11:30 12:32 WBC (3.8-10.6) k/uL RDW (11.5-15.5) % Pathologist Review See comment A ABG pH 7.14 L* (7.35-7.45) ABG pCO2 53 H (35-45) mmHg ABG pO2 (83-108) mmHg ABG HCO3 18 L (21-25) mmol/L ABG Total CO2 (19-24) mmol/L ABG O2 Saturation (94-97) % Hemoglobin (11.4-16.0) gm/dL Sodium (137-145) mmol/L Chloride (98-107) mmol/L Carbon Dioxide (22-30) mmol/L BUN (7-17) mg/dL Creatinine (0.52-1.04) mg/dL Glucose (74-99) mg/dL POC Glucose (mg/dL) 336 H (70-110) mg/dL Calcium (8.4-10.2) mg/dL 10/26/24 10/26/24 10/26/24 Range/Units 16:05 18:28 23:09 WBC (3.8-10.6) k/uL RDW (11.5-15.5) % Pathologist Review ABG pH (7.35-7.45) ABG pCO2 (35-45) mmHg ABG pO2 (83-108) mmHg ABG HCO3 (21-25) mmol/L ABG Total CO2 (19-24) mmol/L ABG O2 Saturation (94-97) % Hemoglobin (11.4-16.0) gm/dL Sodium 131 L (137-145) mmol/L Chloride 95 L (98-107) mmol/L Carbon Dioxide 20 L (22-30) mmol/L BUN 73 H (7-17) mg/dL Creatinine 2.77 H (0.52-1.04) mg/dL Glucose 343 H (74-99) mg/dL POC Glucose (mg/dL) 335 H 334 H (70-110) mg/dL Calcium 8.0 L (8.4-10.2) mg/dL 10/27/24 10/27/24 10/27/24 Range/Units 00:56 04:47 04:48 WBC 11.3 H (3.8-10.6) k/uL RDW 18.6 H (11.5-15.5) % Pathologist Review ABG pH (7.35-7.45) ABG pCO2 (35-45) mmHg ABG pO2 74 L (83-108) mmHg ABG HCO3 29 H (21-25) mmol/L ABG Total CO2 31 H (19-24) mmol/L ABG O2 Saturation (94-97) % Hemoglobin 11.0 L (11.4-16.0) gm/dL Sodium (137-145) mmol/L Chloride (98-107) mmol/L Carbon Dioxide (22-30) mmol/L BUN (7-17) mg/dL Creatinine (0.52-1.04) mg/dL Glucose (74-99) mg/dL POC Glucose (mg/dL) 180 H (70-110) mg/dL Calcium (8.4-10.2) mg/dL 10/27/24 10/27/24 Range/Units 04:48 05:21 WBC (3.8-10.6) k/uL RDW (11.5-15.5) % Pathologist Review ABG pH 7.26 L (7.35-7.45) ABG pCO2 72 H* (35-45) mmHg ABG pO2 74 L (83-108) mmHg ABG HCO3 32 H (21-25) mmol/L ABG Total CO2 34 H (19-24) mmol/L ABG O2 Saturation 92.4 L (94-97) % Hemoglobin 10.9 L (11.4-16.0) gm/dL Sodium 131 L (137-145) mmol/L Chloride 89 L (98-107) mmol/L Carbon Dioxide 32 H (22-30) mmol/L BUN 82 H (7-17) mg/dL Creatinine 2.77 H (0.52-1.04) mg/dL Glucose 166 H (74-99) mg/dL POC Glucose (mg/dL) (70-110) mg/dL Calcium 7.5 L (8.4-10.2) mg/dL Microbiology - Last 24 Hours (Table) 10/26/24 15:08 Gram Stain - Preliminary Sputum Assessment and Plan Assessment: Bradycardia, severe, currently sinus Hyperkalemia secondary to NSAIDs, potassium and Hypotension maintained on epinephrine and dopamine Acute on chronic hypoxic respiratory failure, wears 2 L nasal cannula at home, mechanical ventilator dependent Acute renal failure secondary to ATN, related to all the above, emergent hemodialysis initiated on 10/26/2024 Shock liver Metabolic acidosis, maintained on bicarb drip Recent knee surgery, status post fall postoperative Recent UTI, treated outpatient with Macrobid last week Alpha-1 antitrypsin deficiency, history of Obstructive sleep apnea, wears CPAP at night History of pulmonary hypertension Ongoing nicotine dependence, marijuana edibles, and history of vaping Hypertension Hyperlipidemia Osteoarthritis Morbid obesity, BMI 55 Anxiety Depression Chronic peripheral neuropathy Chronic back pain History of Migraines, chronic Plan: Continue current medications and ,monitoring and symptomatic treatment. ICU/vent management as per ground crewman mission support. HD as per nephrology.prognosis guarded given multiple complex medical issues. The impression and plan of care has been dictated as directed. : I performed a history and examination of this patient, discussed the same with the dictator. I agree with the dictator's note ,documented as a scribe. Any additional findings or plans will be noted.
--- NOTE | 2024-10-28 15:15 | P.PN ---
Subjective Progress Note Date: 10/28/24 H&P Date: 10/26/24 This is a 54-year-old female with past medical history significant for recent knee surgery proximately within the last 3 months with fall postoperatively 1 week ago, osteoarthritis, treated for UTI outpatient last week with Macrobid, COPD, migraines, hypertension, osteoarthritis, morbid obesity, sleep apnea, anxiety, depression, nicotine dependence and multiple other medical issues brought into the ER via EMS with reports of confusion, hallucinations, hypoxia, hypotension. Family reports patient nauseated and dizzy since Saturday night. on EMS arrival, reported systolic blood pressure of 80s, O2 sats of 70% on room air, placed on nonrebreather, EKG reported severe bradycardia with heart rates in the 20s and 30s. ER reports ,on arrival patient was alert and oriented to person and place, reported she had taken an additional [place] as well as an additional Flexeril for knee pain. Creatinine 3.24 on admission, currently at 3.3, baseline 0.7. Hyperkalemic cocktail administered for potassium at 8.6 , currently down to 6.3. EKG reported wide-complex bradycardia, junctional. ABGs reported pH of 7.14, pCO2 53, pO2 87, bicarb 18, total CO2 20 O2 sat 94 with a base excess of -11.1 on 70% FiO2. patient was intubated, taken to the [employer] Operator for transvenous pacer, but spontaneously converted to sinus rhythm. Currently ventilator dependent with FiO2 100%/+8 with PEEP. Maintained on epinephrine and dopamine. Continues on bicarb drip. chest x-ray reported cardiomegaly, worsening pulmonary edema versus massive pneumonia ,antibiotics initiated. Hemo globin A1c 6.0. T. bili 2.2, AST 3715, ALT 4016, alk phos 155. Hepatitis panel in progress. troponin negative x 1. TSH 9.660, free T4 1.35. 10/27/2024 Vent dependent .hemodialysis initiated yesterday. Maintained on bicarb drip, acidosis improving, bicarb 32, discontinued. Continues on dopamine and epinephrine drips echo reporting normal LV function, RVSP 66. Chest x-ray reporting persistent moderate large amount airspace opacities throughout both lungs more on the right, similar. 10/28/2024 Vent dependent, yesterday vent settings of 100% FiO2 +12 of PEEP; today FiO2 100%/+15 of PEEP on pressure control. Lasix attempted yesterday, no improvement. Chest x-ray reporting cardiomegaly, ongoing interstitial and patchy opacities, continue small effusions with adjacent atelectasis and/or consolidation. Received hemodialysis yesterday and today. Renal function improving, bicarb 28, BUN 47, creatinine 2.51. remains on Nimbex, diprovan, dopamine and fentanyl drips. Calcium 7.5, received calcium gluconate. Worsening LFTs. Maintained on Zosyn, Decadron, sputum culture reporting Pse udomonas aeruginosa Tmax 99, WBC 11.2. Venous Doppler pending. Objective - Vital Signs Vital signs: Vital Signs Temp 99.0 F 10/28/24 12:00 Pulse 84 10/28/24 14:30 Resp 43 H 10/28/24 14:30 BP 124/57 10/28/24 11:30 Pulse Ox 90 L 10/28/24 14:30 FiO2 100 10/28/24 12:09 Intake & Output 10/27/24 10/28/24 10/28/24 18:59 06:59 18:59 Intake Total 2948.336 2055.316 1617.873 Output Total 3273 287 4019 Balance 1147.360 4864.316 -4025.127 Weight 183.5 kg Intake: IV 339 233 224 Calcium Gluconate in NaCl 100 1 gm In Saline 1 100ml. bag @ 100 mls/hr IVPB ONCE ONE Rx#:[id number] Dextrose 5% in Water 1, 200 000 ml @ 75 mls/hr IV . [id number] SUMEET with Sodium Bicarb (1 Meq/ml) 150 ml Rx#:[id number] Piperacillin-Tazobactam 3 100 200 .375 gm In Sodium Chloride 0.9% 100 ml @ 25 mls/hr IVPB Q8H SUMEET Rx#: [id number] Pressure Bag 39 33 24 cefTRIAXone 1 gm In 100 Sodium Chloride 0.9% 50 ml @ 100 mls/hr IVPB Q24HR SUMEET Rx#:[id number] Intake, IV Titration 2079.336 1452.316 993.873 Amount Cisatracurium 200 mg In 127.372 249.803 141.667 Sodium Chloride 0.9% 180 ml @ 1 MCG/KG/MIN 8.709 mls/hr IV .[id number] [facility] Rx #:[id number] DOPamine DRIP 800 mg In 233.15 293.999 181.893 Dextrose/Water 1 250ml. bag @ 1 MCG/KG/MIN 2.722 mls/hr IV .Q24H [facility] Rx#: [id number] Dextrose 5% in Water 1, 400 000 ml @ 75 mls/hr IV . [id number] SUMEET with Sodium Bicarb (1 Meq/ml) 150 ml Rx#:[id number] EPINEPHrine 4 mg In 147.143 Dextrose 5% in Water 250 ml @ 0.03 MCG/KG/MIN 16. 329 mls/hr IV .[id number] [facility] Rx#:[id number] Piperacillin-Tazobactam 3 100 .375 gm In Sodium Chloride 0.9% 100 ml @ 25 mls/hr IVPB Q8HR [facility] Rx# :[id number] Sodium Chloride 0.9% 1, 180 000 ml @ 20 mls/hr IV . Q24H [facility] Rx#:[id number] Sodium Chloride 0.9% 1, 50 000 ml @ 50 mls/hr IV . Q20H [facility] Rx#:[id number] fentaNYL (PF) 2,500 mcg 250 225.95 In Sodium Chloride 0.9% 200 ml @ 2 MCG/KG/HR 29. 03 mls/hr IV .Q8H37M [facility] Rx#:[id number] fentaNYL (PF). 1,000 mcg 187.574 In Sodium Chloride 0.9% 80 ml @ 0.5 MCG/KG/HR 7. 258 mls/hr IV .[id number] [facility] Rx#:[id number] propofoL 1,000 mg In 654.097 658.514 444.363 Empty Bag 1 bag @ 15 MCG/ KG/MIN 13.064 mls/hr IV . Q7H40M [facility] Rx#:[id number] Tube Feeding 70 190 Hemodialysis 400 400 Other 60 180 Output: Urine 105 120 43 Stool 0 Hemodialysis 900 3000 Hemodialysis Net Amount 500 2600 Other: Voiding Method Indwelling Catheter Indwelling Catheter Indwelling Catheter # Bowel Movements 0 ABP, PAP, CO, CI - Last Documented Arterial Blood Pressure 111/52 - Exam PHYSICAL EXAM: VITAL SIGNS: As above GENERAL: Intubated and sedated and on paralytics. HEENT: Normocephalic, atraumatic ,Conjunctivae normal. NECK: Supple, No JVD. CARDIOVASCULAR: S1, S2 regular.No murmur. RESPIRATION: Unlabored, equal air entry, scattered rhonchi ABDOMEN: Soft, nontender,obese, nondistended ,positive Bowel sounds. LEGS: Positive edema NERVOUS SYSTEM: unable to evaluate as patient sedated , intubated and on paralytic Skin: Warm and dry, no rash - Labs CBC & Chem 7: 10/28/24 04:20 10/28/24 13:30 Labs: Abnormal Lab Results - Last 24 Hours (Table) 10/27/24 10/27/24 10/28/24 Range/Units 17:48 23:35 04:20 WBC 11.2 H (3.8-10.6) k/uL RDW 18.4 H (11.5-15.5) % Neutrophils # 10.5 H (1.3-7.7) k/uL Lymphocytes # 0.4 L (1.0-4.8) k/uL ABG pH (7.35-7.45) ABG pCO2 (35-45) mmHg ABG pO2 (83-108) mmHg ABG HCO3 (21-25) mmol/L ABG Total CO2 (19-24) mmol/L ABG O2 Saturation (94-97) % Sodium (137-145) mmol/L Potassium (3.5-5.1) mmol/L Chloride (98-107) mmol/L BUN (7-17) mg/dL Creatinine (0.52-1.04) mg/dL Glucose (74-99) mg/dL POC Glucose (mg/dL) 126 H 164 H (70-110) mg/dL Calcium (8.4-10.2) mg/dL Total Bilirubin (0.2-1.3) mg/dL AST (14-36) U/L ALT (4-34) U/L Alkaline Phosphatase (38-126) U/L Total Protein (6.3-8.2) g/dL Albumin (3.5-5.0) g/dL 10/28/24 10/28/24 10/28/24 Range/Units 04:20 04:24 06:14 WBC (3.8-10.6) k/uL RDW (11.5-15.5) % Neutrophils # (1.3-7.7) k/uL Lymphocytes # (1.0-4.8) k/uL ABG pH (7.35-7.45) ABG pCO2 50 H (35-45) mmHg ABG pO2 54 L* (83-108) mmHg ABG HCO3 28 H (21-25) mmol/L ABG Total CO2 29 H (19-24) mmol/L ABG O2 Saturation 84.3 L (94-97) % Sodium 124 L (137-145) mmol/L Potassium 6.6 H* (3.5-5.1) mmol/L Chloride 92 L (98-107) mmol/L BUN 71 H (7-17) mg/dL Creatinine 3.20 H (0.52-1.04) mg/dL Glucose 174 H (74-99) mg/dL POC Glucose (mg/dL) 233 H (70-110) mg/dL Calcium 7.4 L (8.4-10.2) mg/dL Total Bilirubin 2.2 H (0.2-1.3) mg/dL AST 5400 H (14-36) U/L ALT 8772 H (4-34) U/L Alkaline Phosphatase 268 H (38-126) U/L Total Protein 5.7 L (6.3-8.2) g/dL Albumin 2.9 L (3.5-5.0) g/dL 10/28/24 10/28/24 10/28/24 Range/Units 12:29 13:06 13:30 WBC (3.8-10.6) k/uL RDW (11.5-15.5) % Neutrophils # (1.3-7.7) k/uL Lymphocytes # (1.0-4.8) k/uL ABG pH 7.32 L (7.35-7.45) ABG pCO2 56 H (35-45) mmHg ABG pO2 61 L (83-108) mmHg ABG HCO3 29 H (21-25) mmol/L ABG Total CO2 31 H (19-24) mmol/L ABG O2 Saturation 88.1 L (94-97) % Sodium 127 L (137-145) mmol/L Potassium 5.2 H (3.5-5.1) mmol/L Chloride 93 L (98-107) mmol/L BUN 47 H (7-17) mg/dL Creatinine 2.51 H (0.52-1.04) mg/dL Glucose 162 H (74-99) mg/dL POC Glucose (mg/dL) 158 H (70-110) mg/dL Calcium 7.5 L (8.4-10.2) mg/dL Total Bilirubin (0.2-1.3) mg/dL AST (14-36) U/L ALT (4-34) U/L Alkaline Phosphatase (38-126) U/L Total Protein (6.3-8.2) g/dL Albumin (3.5-5.0) g/dL Microbiology - Last 24 Hours (Table) 10/26/24 15:08 Gram Stain - Final Sputum Sputum Culture - Final Pseudomonas aeruginosa 10/26/24 15:54 Blood Culture - Preliminary Blood Assessment and Plan Assessment: Bradycardia, severe, currently sinus Hyperkalemia Cardiogenic shock Hypovolemic shock Hypotension maintained on epinephrine and dopamine Acute on chronic hypoxic respiratory failure, wears 2 L nasal cannula at home, mechanical ventilator dependent with high PEEP Acute renal failure secondary to ATN, related to all the above, emergent hemodialysis initiated on 10/26/2024 Shock liver Acute metabolic acidosis Recent knee surgery, status post fall postoperative Recent UTI, treated outpatient with Macrobid last week Alpha-1 antitrypsin deficiency, history of Obstructive sleep apnea, wears CPAP at night History of pulmonary hypertension Ongoing nicotine dependence, marijuana edibles, and history of vaping Hypertension Hyperlipidemia Osteoarthritis Morbid obesity, BMI 55 Anxiety Depression Chronic peripheral neuropathy Chronic back pain History of Migraines, chronic Sputum culture reporting Pseudomonas aeruginosa Plan: Continue current medications and ,monitoring and symptomatic treatment. ICU/vent management as per crew director. HD as per nephrology.prognosis guarded given multiple complex medical issues. Patient is too unstable to travel for imaging/CTs. neurology following. The impression and plan of care has been dictated as directed. : I performed a history and examination of this patient, discussed the same with the dictator. I agree with the dictator's note ,documented as a scribe. Any additional findings or plans will be noted.
--- NOTE | 2024-10-28 16:32 | P.PN ---
Subjective Progress Note Date: 10/28/24 I am following-up with patient, and per the nurse she continues to be unstable to be transported for CT head. Her pupils are equal today. She had dialysis earlier. She continues to be on IV Nimbex, Propofol and Fentanyl. Objective - Vital Signs Vital signs: Vital Signs Temp 98.7 F 10/28/24 16:00 Pulse 81 10/28/24 16:15 Resp 41 H 10/28/24 16:15 BP 107/57 10/28/24 16:15 Pulse Ox 87 L 10/28/24 16:15 FiO2 100 10/28/24 16:10 Intake & Output 10/27/24 10/28/24 10/28/24 18:59 06:59 18:59 Intake Total 2948.336 2055.316 1957.417 Output Total 9065 876 7734 Balance 9985.681 1155.316 -3690.583 Weight 183.5 kg Intake: IV 339 233 230 Calcium Gluconate in NaCl 100 1 gm In Saline 1 100ml. bag @ 100 mls/hr IVPB ONCE ONE Rx#:[id number] Dextrose 5% in Water 1, 200 000 ml @ 75 mls/hr IV . [id number] SUMEET with Sodium Bicarb (1 Meq/ml) 150 ml Rx#:[id number] Piperacillin-Tazobactam 3 100 200 .375 gm In Sodium Chloride 0.9% 100 ml @ 25 mls/hr IVPB Q8H SUMEET Rx#: [id number] Pressure Bag 39 33 30 cefTRIAXone 1 gm In 100 Sodium Chloride 0.9% 50 ml @ 100 mls/hr IVPB Q24HR [facility]MEET Rx#:[id number] Intake, IV Titration 2079.336 7116.074 3018.417 Amount Cisatracurium 200 mg In 127.372 249.803 141.667 Sodium Chloride 0.9% 180 ml @ 1 MCG/KG/MIN 8.709 mls/hr IV .[id number] SUMEET Rx #:[id number] DOPamine DRIP 800 mg In 233.15 293.999 206.001 Dextrose/Water 1 250ml. bag @ 1 MCG/KG/MIN 2.722 mls/hr IV .Q24H SUMEET Rx#: [id number] Dextrose 5% in Water 1, 400 000 ml @ 75 mls/hr IV . [id number] SUMEET with Sodium Bicarb (1 Meq/ml) 150 ml Rx#:[id number] EPINEPHrine 4 mg In 147.143 Dextrose 5% in Water 250 ml @ 0.03 MCG/KG/MIN 16. 329 mls/hr IV .[id number] [facility] Rx#:[id number] Piperacillin-Tazobactam 3 100 .375 gm In Sodium Chloride 0.9% 100 ml @ 25 mls/hr IVPB Q8HR SUMEET Rx# :[id number] Sodium Chloride 0.9% 1, 180 000 ml @ 20 mls/hr IV . Q24H SUMEET Rx#:[id number] Sodium Chloride 0.9% 1, 50 000 ml @ 50 mls/hr IV . Q20H [facility] Rx#:[id number] fentaNYL (PF) 2,500 mcg 250 451.416 In Sodium Chloride 0.9% 200 ml @ 2 MCG/KG/HR 29. 03 mls/hr IV .Q8H37M [facility] Rx#:[id number] fentaNYL (PF). 1,000 mcg 187.574 In Sodium Chloride 0.9% 80 ml @ 0.5 MCG/KG/HR 7. 258 mls/hr IV .[id number] [facility] Rx#:[id number] propofoL 1,000 mg In 654.097 658.514 528.333 Empty Bag 1 bag @ 15 MCG/ KG/MIN 13.064 mls/hr IV . Q7H40M [facility] Rx#:[id number] Tube Feeding 70 190 Hemodialysis 400 400 Other 60 180 Output: Urine 105 120 48 Stool 0 Hemodialysis 900 3000 Hemodialysis Net Amount 500 2600 Other: Voiding Method Indwelling Catheter Indwelling Catheter Indwelling Catheter # Bowel Movements 0 ABP, PAP, CO, CI - Last Documented Arterial Blood Pressure 118/53 - Exam General: Lying in bed and does not appear in acute distress. Lung: Intubated on a ventilator. Neuro: Very limited. Is on IV Nimbex, IV Propofol and IV Fentanyl. Patient is comatose. GCS 3 (E1, VT1, M1). Pupils are round, equal 4mm , right is 4-5, left is 4mm and reactive to light. No cortical or brainstem function noted at this time and limited because of sedation and is on high Vent Setting (A/C 33). Motor: Strength is limited in assessment. Decrease tone throughout. No spontaneous movement. Plantars: Mute bilaterally. Some of the workup during this hospital visit consisted of: Creatnine is trending down. Her AST is trending up as high as 7474-->5400 ALT is also trending up as high as 7846-->8772. POC glucose was low at 60 yesterday and it has been in the range of 100s to 300s. Potassium was as high as 8.6 on presentation and now it is currently normalized. Routine EEG: Is abnormal. The background slowing is suggestive of moderate encephalopathy. There is no focal slowing, OptiForm discharge or seizure on the EEG. The diffuse suppression is likely due to medication effect (IV Propofol). - Labs CBC & Chem 7: 10/28/24 04:20 10/28/24 13:30 Labs: Abnormal Lab Results - Last 24 Hours (Table) 10/27/24 10/27/24 10/28/24 Range/Units 17:48 23:35 04:20 WBC 11.2 H (3.8-10.6) k/uL RDW 18.4 H (11.5-15.5) % Neutrophils # 10.5 H (1.3-7.7) k/uL Lymphocytes # 0.4 L (1.0-4.8) k/uL ABG pH (7.35-7.45) ABG pCO2 (35-45) mmHg ABG pO2 (83-108) mmHg ABG HCO3 (21-25) mmol/L ABG Total CO2 (19-24) mmol/L ABG O2 Saturation (94-97) % Sodium (137-145) mmol/L Potassium (3.5-5.1) mmol/L Chloride (98-107) mmol/L BUN (7-17) mg/dL Creatinine (0.52-1.04) mg/dL Glucose (74-99) mg/dL POC Glucose (mg/dL) 126 H 164 H (70-110) mg/dL Calcium (8.4-10.2) mg/dL Total Bilirubin (0.2-1.3) mg/dL AST (14-36) U/L ALT (4-34) U/L Alkaline Phosphatase (38-126) U/L Total Protein (6.3-8.2) g/dL Albumin (3.5-5.0) g/dL 10/28/24 10/28/24 10/28/24 Range/Units 04:20 04:24 06:14 WBC (3.8-10.6) k/uL RDW (11.5-15.5) % Neutrophils # (1.3-7.7) k/uL Lymphocytes # (1.0-4.8) k/uL ABG pH (7.35-7.45) ABG pCO2 50 H (35-45) mmHg ABG pO2 54 L* (83-108) mmHg ABG HCO3 28 H (21-25) mmol/L ABG Total CO2 29 H (19-24) mmol/L ABG O2 Saturation 84.3 L (94-97) % Sodium 124 L (137-145) mmol/L Potassium 6.6 H* (3.5-5.1) mmol/L Chloride 92 L (98-107) mmol/L BUN 71 H (7-17) mg/dL Creatinine 3.20 H (0.52-1.04) mg/dL Glucose 174 H (74-99) mg/dL POC Glucose (mg/dL) 233 H (70-110) mg/dL Calcium 7.4 L (8.4-10.2) mg/dL Total Bilirubin 2.2 H (0.2-1.3) mg/dL AST 5400 H (14-36) U/L ALT 8772 H (4-34) U/L Alkaline Phosphatase 268 H (38-126) U/L Total Protein 5.7 L (6.3-8.2) g/dL Albumin 2.9 L (3.5-5.0) g/dL 10/28/24 10/28/24 10/28/24 Range/Units 12:29 13:06 13:30 WBC (3.8-10.6) k/uL RDW (11.5-15.5) % Neutrophils # (1.3-7.7) k/uL Lymphocytes # (1.0-4.8) k/uL ABG pH 7.32 L (7.35-7.45) ABG pCO2 56 H (35-45) mmHg ABG pO2 61 L (83-108) mmHg ABG HCO3 29 H (21-25) mmol/L ABG Total CO2 31 H (19-24) mmol/L ABG O2 Saturation 88.1 L (94-97) % Sodium 127 L (137-145) mmol/L Potassium 5.2 H (3.5-5.1) mmol/L Chloride 93 L (98-107) mmol/L BUN 47 H (7-17) mg/dL Creatinine 2.51 H (0.52-1.04) mg/dL Glucose 162 H (74-99) mg/dL POC Glucose (mg/dL) 158 H (70-110) mg/dL Calcium 7.5 L (8.4-10.2) mg/dL Total Bilirubin (0.2-1.3) mg/dL AST (14-36) U/L ALT (4-34) U/L Alkaline Phosphatase (38-126) U/L Total Protein (6.3-8.2) g/dL Albumin (3.5-5.0) g/dL Microbiology - Last 24 Hours (Table) 10/26/24 15:08 Gram Stain - Final Sputum Sputum Culture - Final Pseudomonas aeruginosa 10/26/24 15:54 Blood Culture - Preliminary Blood Assessment and Plan Assessment: This is a 54-year-old woman with history of COPD on home oxygen who the past couple days she has been confused hallucinating and it seems that according to the her oxygen saturation at home was as low as 70% and the heart rate was in the 20s. In our facility oxygen saturation is in the 80s, bradycardic in the 30s currently she is tachypneic. Also has hypotension as low as 60s over 30s. On examination patient has significantly dilated pupil over the right compared to the left which is sluggishly reactive to light. She is unstable for imaging of the brain. States that she has significant hyperkalemia Altered mental status seems due to hypoxic and metabolic encephalopathy. Possible anoxic encephalopathy vs ?brain injury due to her severe hypoxia. Her anisocoria (dilated right pupil is better today and is close same size as left). Examination is very limited since is on Nimbex and Sedation (IV Propofol and Fentanyl) Acute on chronic hypoxic respiratory failure Severe bradycardia with hypovolemic shock Acute kidney injury Severe acute hyperkalemia Liver shock Recent history of knee surgery History of pulmonary hypertension History of migraine History of nicotine dependence Plan: Once the patient is more stable recommend to pursue with CT of the head. Once the patient is more stable recommend holding sedation and paralytic for better neurological examination Nephrology is on board and patient had dialysis. Will defer the rest of the medical management to primary and other specialist Patient condition is critical. Plan discussed with patient's and patient's mother who are at bedside. Time with Patient: Less than 30
--- NOTE | 2024-10-28 17:49 | PN ---
PROGRESS NOTE SUBJECTIVE: Kim is a 54-year-old lady. She is admitted to ICU with complex and multiple medical problems with mental status changes, symptomatic bradycardia, and hyperkalemia. She remains intubated on vent. An echocardiogram showed normal LV function. Has renal failure with very little urine output. She was dialyzed yesterday and is to be dialyzed again today. She is unresponsive, intubated, vented, sedated. PHYSICAL EXAMINATION: VITAL SIGNS: Remains in sinus rhythm, heart rate is 80 beats per minute, blood pressure is 137/68, respirations 18. CHEST: Diminished air entry at the bases. HEART: First and second heart sounds. No gallop. EXTREMITIES: Mild edema. LABORATORY DATA: Hemoglobin of 11.9. AST and ALT are elevated. ASSESSMENT: 1. Acute on chronic respiratory failure. 2. Severe bradycardia secondary to hyperkalemia. 3. Acute renal failure with hyperkalemia. 4. History of alpha-1 antitrypsin deficiency. PLAN: Continue current measures. Potassium is elevated today at 6.6, and she is being treated for the same. Please keep the potassium below 5. MMODL / IJN: [id number] /
[2024-10-28 17:57] LABS: Glucose,Whole Blood 180 mg/dL (70-110)
[2024-10-29 00:05] LABS: Glucose,Whole Blood 179 mg/dL (70-110)
[2024-10-29 06:01] LABS: Glucose,Whole Blood 170 mg/dL (70-110)
[2024-10-29 06:08] LABS: Anisocytosis Slight; Basophils % (A) 0 %; Eosinophils # (A) 0.1 k/uL (0-0.7); Eosinophils % (A) 1 %; HCT 34.9 % (34.0-46.0); HGB 11.2 gm/dL (11.4-16.0); Hypochromasia Moderate; Lymphocytes # (A) 0.3 k/uL (1.0-4.8); Lymphocytes % (A) 4 %; MCV 84.4 fL (80.0-100.0); Mean Platelet Volume 10.8; Monocytes # (A) 0.2 k/uL (0-1.0); Monocytes % (A) 2 %; Neutrophils # (A) 7.8 k/uL (1.3-7.7); Neutrophils % (A) 93 %; Platelet Count 156 k/uL (150-450); RBC 4.13 m/uL (3.80-5.40); RDW 18.2 % (11.5-15.5); WBC 8.4 k/uL (3.8-10.6)
[2024-10-29 06:11] LABS: ABG Base Excess -0.5 mmol/L; ABG HCO3 26 mmol/L (21-25); ABG Oxygen Saturation 87.4 % (94-97); ABG PCO2 51 mmHg (35-45); ABG PH 7.32 (7.35-7.45); ABG TCO2 28 mmol/L (19-24)
[2024-10-29 06:13] LABS: ABG PO2 59 mmHg (83-108)
[2024-10-29 06:20] LABS: African American GFR (CKD) 16 (>60 ml/min/1.73 sqM); Anion Gap 8 mmol/L; Blood Urea Nitrogen 63 mg/dL (7-17); Calcium 7.5 mg/dL (8.4-10.2); Carbon Dioxide 24 mmol/L (22-30); Chloride 93 mmol/L (98-107); Glucose 170 mg/dL (74-99); Non-African American GFR(CKD) 14 (>60 ml/min/1.73 sqM); Potassium 5.4 mmol/L (3.5-5.1); Sodium 125 mmol/L (137-145)
--- NOTE | 2024-10-29 09:28 | XR ---
EXAMINATION TYPE: XR chest 1V portable DATE OF EXAM: 10/29/2024 6:01 AM COMPARISON: 10/28/2024 CLINICAL INDICATION: Female, 54 years old with history of Tube placement, , FINDINGS: ET tube tip 2.8 cm from the izabella. NG tube courses below the diaphragm. Right CVC tip not clearly se en, likely within the right atrium. Heart moderately enlarged. Ongoing interstitial densities. Patien t now semiupright with increasing right basilar opacity. Patchy retrocardiac opacity persists. IMPRESSION: 1. Ongoing moderate cardiomegaly with pulmonary vascular congestion. 2. Semiupright positioning may account for the worsening right basilar opacity. Likely underlying ple ural effusion with adjacent atelectasis and/or consolidation. [facility], , 10/29/2024 9:26 AM
--- NOTE | 2024-10-29 10:46 | P.PN ---
Subjective Patient is seen in follow-up for acute kidney injury. Started on hemodialysis October 26, 2024. Remains on dopamine drip. Epinephrine discontinued. Off IV fluids. Receiving tube feeds. Remains oliguric. Undergoing hemodialysis. On 100% FiO2. Vital signs are stable. General: Resting in bed. HEENT: Intubated. LUNGS: Scattered rhonchi. HEART: Rate and Rhythm are regular. ABDOMEN: Obese. EXTREMITITES: 1+ edema. Objective - Vital Signs Vital signs: Vital Signs Temp 98.2 F 10/29/24 08:15 Pulse 78 10/29/24 10:15 Resp 33 H 10/29/24 10:15 BP 107/57 10/29/24 06:00 Pulse Ox 90 L 10/29/24 10:15 FiO2 100 10/29/24 10:00 Intake & Output 10/28/24 10/29/24 10/29/24 18:59 06:59 18:59 Intake Total 2153.417 1504.598 578.323 Output Total 5653 70 10 Balance -3499.583 1434.598 568.323 Weight 184.8 kg Intake: IV 236 36 32 Piperacillin-Tazobactam 3 200 .375 gm In Sodium Chloride 0.9% 100 ml @ 25 mls/hr IVPB Q8H [facility] Rx#: [id number] Pressure Bag 36 36 12 Sodium Chloride 0.9% 1, 20 000 ml @ 20 mls/hr IV . Q24H [facility] Rx#:[id number] Intake, IV Titration 4051.069 1213.598 526.323 Amount Cisatracurium 200 mg In 141.667 200.581 Sodium Chloride 0.9% 180 ml @ 1 MCG/KG/MIN 8.709 mls/hr IV .[id number] [facility]ET Rx #:[id number] DOPamine DRIP 800 mg In 206.001 72.029 78.201 Dextrose/Water 1 250ml. bag @ 1 MCG/KG/MIN 2.722 mls/hr IV .Q24H [facility] Rx#: [id number] fentaNYL (PF) 2,500 mcg 451.416 249.174 250 In Sodium Chloride 0.9% 200 ml @ 2 MCG/KG/HR 29. 03 mls/hr IV .Q8H37M [facility] Rx#:[id number] propofoL 1,000 mg In 628.333 636.814 198.122 Empty Bag 1 bag @ 15 MCG/ KG/MIN 13.064 mls/hr IV . Q7H40M [facility] Rx#:[id number] Tube Feeding 220 20 Hemodialysis 400 Other 90 90 Output: Urine 53 70 10 Hemodialysis 3000 Hemodialysis Net Amount 2600 Other: Voiding Method Indwelling Catheter Indwelling Catheter Indwelling Catheter ABP, PAP, CO, CI - Last Documented Arterial Blood Pressure 119/54 - Labs CBC & Chem 7: 10/29/24 06:00 10/29/24 06:00 Labs: Abnormal Lab Results - Last 24 Hours (Table) 10/28/24 10/28/24 10/28/24 Range/Units 12:29 13:06 13:30 Hgb (11.4-16.0) gm/dL RDW (11.5-15.5) % Neutrophils # (1.3-7.7) k/uL Lymphocytes # (1.0-4.8) k/uL ABG pH 7.32 L (7.35-7.45) ABG pCO2 56 H (35-45) mmHg ABG pO2 61 L (83-108) mmHg ABG HCO3 29 H (21-25) mmol/L ABG Total CO2 31 H (19-24) mmol/L ABG O2 Saturation 88.1 L (94-97) % Hemoglobin (11.4-16.0) gm/dL Sodium 127 L (137-145) mmol/L Potassium 5.2 H (3.5-5.1) mmol/L Chloride 93 L (98-107) mmol/L BUN 47 H (7-17) mg/dL Creatinine 2.51 H (0.52-1.04) mg/dL Glucose 162 H (74-99) mg/dL POC Glucose (mg/dL) 158 H (70-110) mg/dL Calcium 7.5 L (8.4-10.2) mg/dL 10/28/24 10/28/24 10/29/24 Range/Units 17:15 17:55 00:04 Hgb (11.4-16.0) gm/dL RDW (11.5-15.5) % Neutrophils # (1.3-7.7) k/uL Lymphocytes # (1.0-4.8) k/uL ABG pH (7.35-7.45) ABG pCO2 (35-45) mmHg ABG pO2 (83-108) mmHg ABG HCO3 (21-25) mmol/L ABG Total CO2 (19-24) mmol/L ABG O2 Saturation (94-97) % Hemoglobin (11.4-16.0) gm/dL Sodium (137-145) mmol/L Potassium 5.4 H (3.5-5.1) mmol/L Chloride (98-107) mmol/L BUN (7-17) mg/dL Creatinine (0.52-1.04) mg/dL Glucose (74-99) mg/dL POC Glucose (mg/dL) 180 H 179 H (70-110) mg/dL Calcium (8.4-10.2) mg/dL 10/29/24 10/29/24 10/29/24 Range/Units 05:00 05:59 06:00 Hgb 11.2 L (11.4-16.0) gm/dL RDW 18.2 H (11.5-15.5) % Neutrophils # 7.8 H (1.3-7.7) k/uL Lymphocytes # 0.3 L (1.0-4.8) k/uL ABG pH 7.32 L (7.35-7.45) ABG pCO2 51 H (35-45) mmHg ABG pO2 59 L* (83-108) mmHg ABG HCO3 26 H (21-25) mmol/L ABG Total CO2 28 H (19-24) mmol/L ABG O2 Saturation 87.4 L (94-97) % Hemoglobin 11.0 L (11.4-16.0) gm/dL Sodium (137-145) mmol/L Potassium (3.5-5.1) mmol/L Chloride (98-107) mmol/L BUN (7-17) mg/dL Creatinine (0.52-1.04) mg/dL Glucose (74-99) mg/dL POC Glucose (mg/dL) 170 H (70-110) mg/dL Calcium (8.4-10.2) mg/dL 10/29/24 Range/Units 06:00 Hgb (11.4-16.0) gm/dL RDW (11.5-15.5) % Neutrophils # (1.3-7.7) k/uL Lymphocytes # (1.0-4.8) k/uL ABG pH (7.35-7.45) ABG pCO2 (35-45) mmHg ABG pO2 (83-108) mmHg ABG HCO3 (21-25) mmol/L ABG Total CO2 (19-24) mmol/L ABG O2 Saturation (94-97) % Hemoglobin (11.4-16.0) gm/dL Sodium 125 L (137-145) mmol/L Potassium 5.4 H (3.5-5.1) mmol/L Chloride 93 L (98-107) mmol/L BUN 63 H (7-17) mg/dL Creatinine 3.50 H (0.52-1.04) mg/dL Glucose 170 H (74-99) mg/dL POC Glucose (mg/dL) (70-110) mg/dL Calcium 7.5 L (8.4-10.2) mg/dL Microbiology - Last 24 Hours (Table) 10/26/24 15:54 Blood Culture - Preliminary Blood 10/26/24 15:08 Gram Stain - Final Sputum Sputum Culture - Final Pseudomonas aeruginosa Assessment and Plan Plan: Assessment: 1. Acute kidney injury secondary to ATN secondary to bradycardia, hypotension further worsen with the use of NSAIDs and diuretics. Baseline creatinine 0.7- 0.8 and 3.31 on admission. Oliguric. Started on hemodialysis October 26, 2024 via femoral dialysis catheter. No hydronephrosis noted on kidney ultrasound. 2. Hyperkalemia secondary to acute kidney injury, acidosis, NSAIDs, potassium supplementation. Improved. 3. Bradycardia secondary to hyperkalemia. Improved. 4. Metabolic acidosis secondary to acute kidney injury. Status post bicarb drip. Improved. 5. Shock liver. 6. Recent right knee surgery with subsequent fall. Will need further intervention in the future. 7. Hyponatremia secondary to acute kidney injury, hypervolemic. 8. Acute hypoxic respiratory failure. Intubated. Plan: Continue with daily dialysis for now. Challenge ultrafiltration. Maintain tube feeds. Monitor for renal recovery. Wean FiO2 and vasopressors. Add midodrine. Preserved ejection fraction noted on echocardiogram. Avoid nephrotoxins. IV Lasix given October 27, 2024 with minimal response in urine output.
[2024-10-29] MEDS: MIDODRINE 5 MG TAB PO SCH (11:42)
[2024-10-29 11:51] LABS: Glucose,Whole Blood 137 mg/dL (70-110)
[2024-10-29 11:56] LABS: ALT 6491 U/L (4-34); AST 2071 U/L (14-36)
[2024-10-29] MEDS ORDERED: MIDODRINE 5 MG TAB PO SCH (12:30)
--- NOTE | 2024-10-29 14:57 | P.PN ---
Subjective Progress Note Date: 10/29/24 H&P Date: 10/26/24 This is a 54-year-old female with past medical history significant for recent knee surgery proximately within the last 3 months with fall postoperatively 1 week ago, osteoarthritis, treated for UTI outpatient last week with Macrobid, COPD, migraines, hypertension, osteoarthritis, morbid obesity, sleep apnea, anxiety, depression, nicotine dependence and multiple other medical issues brought into the ER via EMS with reports of confusion, hallucinations, hypoxia, hypotension. Family reports patient nauseated and dizzy since Saturday night. on EMS arrival, reported systolic blood pressure of 80s, O2 sats of 70% on room air, placed on nonrebreather, EKG reported severe bradycardia with heart rates in the 20s and 30s. ER reports ,on arrival patient was alert and oriented to person and place, reported she had taken an additional [place] as well as an additional Flexeril for knee pain. Creatinine 3.24 on admission, currently at 3.3, baseline 0.7. Hyperkalemic cocktail administered for potassium at 8.6 , currently down to 6.3. EKG reported wide-complex bradycardia, junctional. ABGs reported pH of 7.14, pCO2 53, pO2 87, bicarb 18, total CO2 20 O2 sat 94 with a base excess of -11.1 on 70% FiO2. patient was intubated, taken to the [facility] for transvenous pacer, but spontaneously converted to sinus rhythm. Currently ventilator dependent with FiO2 100%/+8 with PEEP. Maintained on epinephrine and dopamine. Continues on bicarb drip. chest x-ray reported cardiomegaly, worsening pulmonary edema versus massive pneumonia ,antibiotics initiated. Hemo globin A1c 6.0. T. bili 2.2, AST 3715, ALT 4016, alk phos 155. Hepatitis panel in progress. troponin negative x 1. TSH 9.660, free T4 1.35. 10/27/2024 Vent dependent .hemodialysis initiated yesterday. Maintained on bicarb drip, acidosis improving, bicarb 32, discontinued. Continues on dopamine and epinephrine drips echo reporting normal LV function, RVSP 66. Chest x-ray reporting persistent moderate large amount airspace opacities throughout both lungs more on the right, similar. 10/28/2024 Vent dependent, yesterday vent settings of 100% FiO2 +12 of PEEP; today FiO2 100%/+15 of PEEP on pressure control. Lasix attempted yesterday, no improvement. Chest x-ray reporting cardiomegaly, ongoing interstitial and patchy opacities, continue small effusions with adjacent atelectasis and/or consolidation. Received hemodialysis yesterday and today. Renal function improving, bicarb 28, BUN 47, creatinine 2.51. remains on Nimbex, diprovan, dopamine and fentanyl drips. Calcium 7.5, received calcium gluconate. Worsening LFTs. Maintained on Zosyn, Decadron, sputum culture reporting Pse udomonas aeruginosa Tmax 99, WBC 11.2. Venous Doppler pending. 10/29/2024 ventilator dependent, maintained on 100% FiO2/+15 PEEP. Continues on Nimbex ,diprovan ,fentanyl, dopamine drips. Midodrine added to med regimen. Continues on Zosyn, nebulized bronchodilators, dexamethasone. Blood sugars better controlled.Afebrile, normal WBC. HD today. LFTs trending down. Albumin 2.9. Objective - Vital Signs Vital signs: Vital Signs Temp 98.5 F 10/29/24 12:58 Pulse 81 10/29/24 13:05 Resp 34 H 10/29/24 12:58 BP 125/54 10/29/24 12:58 Pulse Ox 91 L 10/29/24 12:00 FiO2 100 10/29/24 12:36 Intake & Output 10/28/24 10/29/24 10/29/24 18:59 06:59 18:59 Intake Total 2153.417 9687.239 3657.113 Output Total 5653 70 7410 Balance -3499.583 1434.598 -6169.887 Weight 184.8 kg 184.8 kg Intake: IV 236 36 78 Piperacillin-Tazobactam 3 200 .375 gm In Sodium Chloride 0.9% 100 ml @ 25 mls/hr IVPB Q8H [facility] Rx#: [id number] Pressure Bag 36 36 18 Sodium Chloride 0.9% 1, 60 000 ml @ 20 mls/hr IV . Q24H [facility] Rx#:[id number] Intake, IV Titration 2379.397 0971.598 742.113 Amount Cisatracurium 200 mg In 141.667 200.581 Sodium Chloride 0.9% 180 ml @ 1 MCG/KG/MIN 8.709 mls/hr IV .[id number] [facility] Rx #:[id number] DOPamine DRIP 800 mg In 206.001 72.029 104.351 Dextrose/Water 1 250ml. bag @ 1 MCG/KG/MIN 2.722 mls/hr IV .Q24H [facility] Rx#: [id number] fentaNYL (PF) 2,500 mcg 451.416 249.174 250 In Sodium Chloride 0.9% 200 ml @ 2 MCG/KG/HR 29. 03 mls/hr IV .Q8H37M [facility] Rx#:[id number] propofoL 1,000 mg In 628.333 636.814 387.762 Empty Bag 1 bag @ 15 MCG/ KG/MIN 13.064 mls/hr IV . Q7H40M [facility] Rx#:[id number] Tube Feeding 220 20 Hemodialysis 400 400 Other 90 90 Output: Urine 53 70 10 Hemodialysis 3000 3900 Hemodialysis Net Amount 2600 3500 Other: Voiding Method Indwelling Catheter Indwelling Catheter Indwelling Catheter ABP, PAP, CO, CI - Last Documented Arterial Blood Pressure 119/52 - Exam PHYSICAL EXAM: VITAL SIGNS: As above GENERAL: Intubated and sedated and on paralytics. HEENT: Normocephalic, atraumatic ,Conjunctivae normal. NECK: Supple, No JVD. CARDIOVASCULAR: S1, S2 regular.No murmur. RESPIRATION: Unlabored, equal air entry, scattered rhonchi ABDOMEN: Soft, nontender,obese, nondistended ,positive Bowel sounds. LEGS: Positive edema NERVOUS SYSTEM: unable to evaluate as patient sedated , intubated and on para lytic Skin: Warm and dry, no rash Microbiology 10/26/24 15:54 Blood Blood Culture - Preliminary 10/26/24 15:08 Sputum Gram Stain - Final 10/26/24 15:08 Sputum Sputum Culture - Final Pseudomonas aeruginosa - Labs CBC & Chem 7: 10/29/24 06:00 10/29/24 06:00 Labs: Abnormal Lab Results - Last 24 Hours (Table) 10/28/24 10/28/24 10/29/24 Range/Units 17:15 17:55 00:04 Hgb (11.4-16.0) gm/dL RDW (11.5-15.5) % Neutrophils # (1.3-7.7) k/uL Lymphocytes # (1.0-4.8) k/uL ABG pH (7.35-7.45) ABG pCO2 (35-45) mmHg ABG pO2 (83-108) mmHg ABG HCO3 (21-25) mmol/L ABG Total CO2 (19-24) mmol/L ABG O2 Saturation (94-97) % Hemoglobin (11.4-16.0) gm/dL Sodium (137-145) mmol/L Potassium 5.4 H (3.5-5.1) mmol/L Chloride (98-107) mmol/L BUN (7-17) mg/dL Creatinine (0.52-1.04) mg/dL Glucose (74-99) mg/dL POC Glucose (mg/dL) 180 H 179 H (70-110) mg/dL Calcium (8.4-10.2) mg/dL AST (14-36) U/L ALT (4-34) U/L 10/29/24 10/29/24 10/29/24 Range/Units 05:00 05:59 06:00 Hgb 11.2 L (11.4-16.0) gm/dL RDW 18.2 H (11.5-15.5) % Neutrophils # 7.8 H (1.3-7.7) k/uL Lymphocytes # 0.3 L (1.0-4.8) k/uL ABG pH 7.32 L (7.35-7.45) ABG pCO2 51 H (35-45) mmHg ABG pO2 59 L* (83-108) mmHg ABG HCO3 26 H (21-25) mmol/L ABG Total CO2 28 H (19-24) mmol/L ABG O2 Saturation 87.4 L (94-97) % Hemoglobin 11.0 L (11.4-16.0) gm/dL Sodium (137-145) mmol/L Potassium (3.5-5.1) mmol/L Chloride (98-107) mmol/L BUN (7-17) mg/dL Creatinine (0.52-1.04) mg/dL Glucose (74-99) mg/dL POC Glucose (mg/dL) 170 H (70-110) mg/dL Calcium (8.4-10.2) mg/dL AST (14-36) U/L ALT (4-34) U/L 10/29/24 10/29/24 10/29/24 Range/Units 06:00 06:00 11:50 Hgb (11.4-16.0) gm/dL RDW (11.5-15.5) % Neutrophils # (1.3-7.7) k/uL Lymphocytes # (1.0-4.8) k/uL ABG pH (7.35-7.45) ABG pCO2 (35-45) mmHg ABG pO2 (83-108) mmHg ABG HCO3 (21-25) mmol/L ABG Total CO2 (19-24) mmol/L ABG O2 Saturation (94-97) % Hemoglobin (11.4-16.0) gm/dL Sodium 125 L (137-145) mmol/L Potassium 5.4 H (3.5-5.1) mmol/L Chloride 93 L (98-107) mmol/L BUN 63 H (7-17) mg/dL Creatinine 3.50 H (0.52-1.04) mg/dL Glucose 170 H (74-99) mg/dL POC Glucose (mg/dL) 137 H (70-110) mg/dL Calcium 7.5 L (8.4-10.2) mg/dL AST 2071 H (14-36) U/L ALT 6491 H (4-34) U/L Microbiology - Last 24 Hours (Table) 10/26/24 15:54 Blood Culture - Preliminary Blood Assessment and Plan Assessment: Bradycardia, severe, currently sinus Hyperkalemia secondary to NSAIDs, potassium and Hypotension maintained on epinephrine and dopamine Acute on chronic hypoxic respiratory failure, wears 2 L nasal cannula at home, mechanical ventilator dependent Acute renal failure secondary to ATN, related to all the above, requiring emergent hemodialysis Shock liver Metabolic acidosis, maintained on bicarb drip Recent knee surgery, status post fall postoperative Recent UTI, treated outpatient with Macrobid last week Alpha-1 antitrypsin deficiency, history of Obstructive sleep apnea, wears CPAP at night History of pulmonary hypertension Ongoing nicotine dependence, marijuana edibles, and history of vaping Hypertension Hyperlipidemia Osteoarthritis Morbid obesity, BMI 55 Anxiety Depression Chronic peripheral neuropathy Chronic back pain History of Migraines, chronic Plan: Continue current medications and ,monitoring and symptomatic treatment. ICU/vent management as per tree scout. HD today as per nephrology. Neurology following. prognosis guarded given multiple complex medical issues. The impression and plan of care has been dictated as directed. : I performed a history and examination of this patient, discussed the same with the dictator. I agree with the dictator's note ,documented as a scribe. Any additional findings or plans will be noted.
--- NOTE | 2024-10-29 15:08 | P.PN ---
Subjective Progress Note Date: 10/29/24 Principal diagnosis: Acute on chronic hypoxic respiratory failure and acute hypercapnic respiratory failure with hypovolemic shock and severe bradycardia This is a 54-year-old female with history of multiple medical problems including COPD, chronic pain syndrome, dyslipidemia, bipolar disorder, hypertension, patient was brought into the ER yesterday mostly with change in mental status and according to family patient has been confused for the last 2 days, patient has been hallucinating and upon arrival to the ER she was noted to be severely bradycardic and hypotensive. Patient remained bradycardic, patient was seen by cardiology on consultation for her bradycardia, patient was taken to the cardiac [facility], her blood pressure was 120 on norepinephrine, decision was made to hold her pacemaker insertion. Previous cardiac workup from previous records has shown preserved systolic function and no documented ischemic heart disease. When labs were reviewed, patient was noted to have hyperkalemia and acute renal failure, shock liver profile, patient was intubated in the ER, she was eventually transferred to the ICU after she went to cardiac cath. But again pacemaker insertion was placed on hold. Patient is now intubated mechanically ventilated, she is on assist-control rate of 22 tidal volume 500 FiO2 100% and PEEP of 8 ABG showed a pO2 of 87 pCO2 53 pH of 7.14, her rate was increased to 26, patient received 1 amp of bicarb, and she was already on bicarb drip. Patient is on multiple drips including dopamine at 10 mcg/kg/min, propofol at 45 mg/kg/min Versed which I have discontinued 3 mg/h patient is also receiving epinephrine at 0.12 mcg/kg/min receiving 3 A of bicarb in D5W at 200 cc/h patient is hyperkalemic and follow-up sodium remains above 6, although the patient received the hyperkalemia protocol. Her initial potassium was 8.6 on her initial presentation. Patient already had a hemodialysis catheter placed by vascular surgery in the left groin, and she has a right IJ triple-lumen catheter. I went ahead and placed a right radial arterial line. Patient is scheduled to undergo hemodialysis today, patient is not responsive to any stimuli except deep painful stimuli noted while I was placing an arterial line, patient withdraws to painful stimuli/needlestick. Pupils are dilated and sluggishly reactive. Looking back at her history patient had total knee arthroplasty 3 months ago and she had a fall about a week ago may have sustained head injury however CT of the brain is pending patient is to be seen by neurology on consultation today. And she is being seen by many consultants including nephrology and cardiology. Overall picture is extremely poor and guarded. And the patient is critically ill. Blood sugars are running high as 336 liver enzymes are elevated including a bilirubin of 2.2 AST of 3715 ALT of 4016 and alkaline phosphatase of 155 Patient seen today on 10/27/2024, patient remains in the ICU, intubated and mecha nically ventilated sedated and paralyzed. Patient developed worsening pulmonary edema over the last 24 hours, hence she required higher FiO2 of 100% higher PEEP of 12 and she remains marginal as far as oxygenation is concerned. Patient is undergoing hemodialysis today no fluid was removed yesterday, and nephrology is planning to remove only 500 cc of fluid today. Patient remains on dopamine at 10 mcg/kg/min epinephrine at 0.02 mcg/kg/min Fentanyl at 2 mcg/kg/h propofol at 75 mcg/kg/min remains on Nimbex at 1 mcg/kg per minute and was supposed to have a CT of the brain yesterday, however the portion was relatively unstable could not have the CT of the brain done yesterday mostly because of arrhythmia and hypotension had to be brought back up to the ICU and she had to be paralyzed. Overall condition is not promising, actually her condition seems to be worse today compared to yesterday. Patient was seen by neurology on consultation still entertaining the possibility of anoxic brain injury due to severe hypoxia. The patient has anisocoria with right pupil larger than the left pupil full adequate neurological exam could not be fully done mostly because of the fact the patient is on Nimbex Fentanyl and propofol. Patient could not come off Nimbex mostly because could not be ventilated yesterday in spite of multiple sedatives including propofol and fentanyl. These were relatively high doses. She was very asynchronous with the ventilator, breathing over 40/min, had to be given Nimbex otherwise could not ventilate the patient. Today continues to have high peak airway pressure in the range of 40 high plateau pressures in the range of 34, and she has marginal oxygenation chest x-ray showed pulmonary edema underlying aspiration pneumonia is not entirely ruled out hence the patient remains on antibiotics empirically and she still receiving diuretics she is also on hemodialysis because she had complete renal shutdown on this admission. Her WBC count is 11.3 hemoglobin is 11.4 her ABG today showed a pO2 of 74 pCO2 72 pH of 7.26 basic metabolic profile showed potassium of 4.9 BUN of 82 creatinine 2.77 AST is 7474 ALT is 7846 worse today compared to yesterday. This is a picture of shock liver to mention the patient presented with acute tubular necrosis and acute kidney injury. Severe metabolic acidosis and severe hyperkalemia leading to bradycardia hypotension, cardiogram showed good LV function today, ejection fraction of 60 to 65% right-sided pressures are in the range of 66. Patient was seen today on 10/28/2024, remains in the ICU, remains intubated and mechanically ventilated. Patient is on assist-control rate of 3 0 tidal volume 400 FiO2 100% and PEEP of 15. However considering her relatively high peak airway pressure and plateau pressures I switched the patient to a pressure control mode of mechanical ventilation with PI of 23 TI 0.7 rate remains 33 and PEEP remains at 15. ABG earlier today showed a pO2 of 54 pCO2 50 pH of 7.35. Patient remains on Decadron remains on Zosyn, sputum is positive for Pseudomonas aeruginosa patient remains extremely oliguric 5 to 10 cc/h. He did not improve with Lasix yesterday. Remains on dialysis and she will have dialysis again today. Did not do a CT of the brain and could not do a CT of the chest mostly because of her instability. Recommending a venous Doppler to be done today. Time patient remains on Nimbex at 2 mcg/kg/min and dopamine 7.5 mcg/kg/min and I am cutting it down to 5 fentanyl at 2 mcg/kg/h propofol at 65 mcg/kg/min he is off epinephrine. Could use norepinephrine if necessary for low blood pressure. Right now she is only on dopamine which is to be tapered down to a renal perf usion dose if possible. This x-ray continues to show cardiomegaly and evidence of pulmonary edema, small bilateral pleural effusions and atelectasis. WBC count is 11.2 hemoglobin 11.9, sodium 124 potassium 6.6 enzymes remain elevated. Profile is abnormal with a BUN of 71 creatinine 3.20 patient is undergoing hemodialysis again today Seen today on 10/29/2024, patient remains in the ICU intubated mechanically ventilated sedated and paralyzed patient is on assist-control rate of 33 tidal volume 400 FiO2 100% and PEEP of 15 ABG showed a pO2 of 59 pCO2 51 pH of 7.32. Patient is having another hemodialysis today and the plan is to remove 2.5 L today. Patient remains on Nimbex at 2 mcg/kg/min and she also on vital HP at 20 cc/h dopamine at 2 mcg/kg/min Fentanyl at 2 mcg/kg/kg/h propofol at 65 mg/kg/min and IV fluid at KVO. Chest x-ray is basically about the same continues to show evidence of pulmonary edema and bilateral pleural effusion her labs showed low sodium of 125, bicarb is 24 BUN is 63 creatinine 3.50 liver enzymes are improving with ALT down to 6491, AST is down to 2071 venous Doppler of lower extremities could not be optimal because of her legs condition and swelling as w ell as body habitus, could not send the patient back down for CT angiogram of the chest and for CT of the head patient had some sort of head trauma, I am afraid to place patient empirically on heparin, and I am yet to stabilize the patient to have a CT of the head. Her clinical condition is extremely marginal at best, and I prefer not to send her down for CT of the chest and CT of the head at this point EEG did show evidence of moderate encephalopathy and I believe the patient must have sustained some significant anoxic brain injury Objective - Vital Signs Vital signs: Vital Signs Temp 98.5 F 10/29/24 12:58 Pulse 85 10/29/24 14:30 Resp 33 H 10/29/24 14:30 BP 125/54 10/29/24 12:58 Pulse Ox 93 L 10/29/24 14:30 FiO2 100 10/29/24 12:36 Intake & Output 10/28/24 10/29/24 10/29/24 18:59 06:59 18:59 Intake Total 2153.417 4324.990 7934.231 Output Total 5653 70 7410 Balance -3499.583 1434.598 -7280.769 Weight 184.8 kg 184.8 kg Intake: IV 236 36 124 Piperacillin-Tazobactam 3 200 .375 gm In Sodium Chloride 0.9% 100 ml @ 25 mls/hr IVPB Q8H [facility] Rx#: [id number] Pressure Bag 36 36 24 Sodium Chloride 0.9% 1, 100 000 ml @ 20 mls/hr IV . Q24H [facility] Rx#:[id number] Intake, IV Titration 4232.593 9575.598 885.231 Amount Cisatracurium 200 mg In 141.667 200.581 143.118 Sodium Chloride 0.9% 180 ml @ 1 MCG/KG/MIN 8.709 mls/hr IV .[id number] [facility] Rx #:[id number] DOPamine DRIP 800 mg In 206.001 72.029 104.351 Dextrose/Water 1 250ml. bag @ 1 MCG/KG/MIN 2.722 mls/hr IV .Q24H [facility] Rx#: [id number] fentaNYL (PF) 2,500 mcg 451.416 249.174 250 In Sodium Chloride 0.9% 200 ml @ 2 MCG/KG/HR 29. 03 mls/hr IV .Q8H37M [facility] Rx#:[id number] propofoL 1,000 mg In 628.333 636.814 387.762 Empty Bag 1 bag @ 15 MCG/ KG/MIN 13.064 mls/hr IV . Q7H40M [facility] Rx#:[id number] Tube Feeding 220 20 Hemodialysis 400 400 Other 90 90 Output: Urine 53 70 10 Hemodialysis 3000 3900 Hemodialysis Net Amount 2600 3500 Other: Voiding Method Indwelling Catheter Indwelling Catheter Indwelling Catheter ABP, PAP, CO, CI - Last Documented Arterial Blood Pressure 125/55 - Exam GENERAL: Revealed a 55-year-old female intubated, mechanically ventilated, unresponsive to any stimuli except deep painful stimuli/needlesticks. Patient is on Nimbex, propofol, fentanyl HEENT: Normocephalic, atraumatic ,Conjunctivae normal. Pupils are reactive to light NECK: Supple, No JVD. Endotracheal tube is intact, patient has a short obese neck, no neck masses no stridor. CARDIOVASCULAR: Distant S1-S2, no S3 gallop, no murmur. RESPIRATION: Diminished breath sound bilaterally rhonchi and wheezes noted bilaterally ABDOMEN: Morbidly obese, soft, nontender,obese, nondistended ,positive Bowel sounds. LEGS: Trace of bipedal edema, diminished distal pulses bilaterally. NERVOUS SYSTEM: unable to evaluate as patient sedated and intubated, paralyzed Skin: Warm and dry, no rash Psychiatric: Could not assess. Patient is sedated on propofol and on fentanyl, and Nimbex - Labs CBC & Chem 7: 10/29/24 06:00 10/29/24 06:00 Labs: Abnormal Lab Results - Last 24 Hours (Table) 10/28/24 10/28/24 10/29/24 Range/Units 17:15 17:55 00:04 Hgb (11.4-16.0) gm/dL RDW (11.5-15.5) % Neutrophils # (1.3-7.7) k/uL Lymphocytes # (1.0-4.8) k/uL ABG pH (7.35-7.45) ABG pCO2 (35-45) mmHg ABG pO2 (83-108) mmHg ABG HCO3 (21-25) mmol/L ABG Total CO2 (19-24) mmol/L ABG O2 Saturation (94-97) % Hemoglobin (11.4-16.0) gm/dL Sodium (137-145) mmol/L Potassium 5.4 H (3.5-5.1) mmol/L Chloride (98-107) mmol/L BUN (7-17) mg/dL Creatinine (0.52-1.04) mg/dL Glucose (74-99) mg/dL POC Glucose (mg/dL) 180 H 179 H (70-110) mg/dL Calcium (8.4-10.2) mg/dL AST (14-36) U/L ALT (4-34) U/L 10/29/24 10/29/24 10/29/24 Range/Units 05:00 05:59 06:00 Hgb 11.2 L (11.4-16.0) gm/dL RDW 18.2 H (11.5-15.5) % Neutrophils # 7.8 H (1.3-7.7) k/uL Lymphocytes # 0.3 L (1.0-4.8) k/uL ABG pH 7.32 L (7.35-7.45) ABG pCO2 51 H (35-45) mmHg ABG pO2 59 L* (83-108) mmHg ABG HCO3 26 H (21-25) mmol/L ABG Total CO2 28 H (19-24) mmol/L ABG O2 Saturation 87.4 L (94-97) % Hemoglobin 11.0 L (11.4-16.0) gm/dL Sodium (137-145) mmol/L Potassium (3.5-5.1) mmol/L Chloride (98-107) mmol/L BUN (7-17) mg/dL Creatinine (0.52-1.04) mg/dL Glucose (74-99) mg/dL POC Glucose (mg/dL) 170 H (70-110) mg/dL Calcium (8.4-10.2) mg/dL AST (14-36) U/L ALT (4-34) U/L 10/29/24 10/29/24 10/29/24 Range/Units 06:00 06:00 11:50 Hgb (11.4-16.0) gm/dL RDW (11.5-15.5) % Neutrophils # (1.3-7.7) k/uL Lymphocytes # (1.0-4.8) k/uL ABG pH (7.35-7.45) ABG pCO2 (35-45) mmHg ABG pO2 (83-108) mmHg ABG HCO3 (21-25) mmol/L ABG Total CO2 (19-24) mmol/L ABG O2 Saturation (94-97) % Hemoglobin (11.4-16.0) gm/dL Sodium 125 L (137-145) mmol/L Potassium 5.4 H (3.5-5.1) mmol/L Chloride 93 L (98-107) mmol/L BUN 63 H (7-17) mg/dL Creatinine 3.50 H (0.52-1.04) mg/dL Glucose 170 H (74-99) mg/dL POC Glucose (mg/dL) 137 H (70-110) mg/dL Calcium 7.5 L (8.4-10.2) mg/dL AST 2071 H (14-36) U/L ALT 6491 H (4-34) U/L Microbiology - Last 24 Hours (Table) 10/26/24 15:54 Blood Culture - Preliminary Blood Assessment and Plan Assessment: Impression: Acute on chronic hypoxic respiratory failure, patient is normally on 2 L nasal cannula at home. Acute hypercapnic respiratory failure Severe bradycardia with hypovolemic shock Acute kidney injury secondary to ATN, hemodialysis now. Severe acute hyperkalemia, multifactorial patient does have history of nonsteroidal anti-inflammatory drugs use and presented with bradycardia and hypotension and a picture of cardiogenic shock Shock liver, seems to be worse today compared to yesterday. Acute metabolic and respiratory acidosis as noted on ABG Recent history of knee surgery Recent urinary tract infection History of pulmonary hypertension History of alpha 1 antitrypsin deficiency History of nicotine dependence Benign essential hypertension Morbid obesity Degenerative joint disease Chronic peripheral neuropathy Chronic back pain History of migraine cephalgia History of depression History of pulmonary hypertension possible acute anoxic brain injury History of Pseudomonas in the sputum hence antibiotics were transitioned to Zosyn Recommendation: Continue ventilatory support Continue hemodynamic support, patient is now only on dopamine, renal perfusion dose 2 mcg/kg/min Unable to get a CT of the head and CT of the chest at this point, patient is marginal and not stable enough to go down for CT Continue sedation and paralysis Continue hemodialysis GI and DVT prophylaxis Nutritional support/enteral feed Insulin including Levemir insulin and NovoLog insulin for hyperglycemia Bronchodilators for underlying COPD Continue Zosyn for Pseudomonas in the sputum, possible underlying pseudomonal pneumonia Continue renal perfusion dose of dopamine Epinephrine was discontinued, could use norepinephrine if necessary for low blood pressure Mother was updated on the patient's condition made aware that her condition is critical Critical care time is over 30 minutes Time with Patient: Greater than 30
--- NOTE | 2024-10-29 17:14 | P.PN ---
Subjective Progress Note Date: 10/29/24 I am following up with the patient and according to the nurse the patient continues to be unstable for CT since she still desats with just moving her. Otherwise no new neurological issues. She continues to be on IV Nimbex, IV propofol and IV fentanyl. Objective - Vital Signs Vital signs: Vital Signs Temp 98.5 F 10/29/24 16:00 Pulse 82 10/29/24 16:12 Resp 33 H 10/29/24 16:00 BP 125/54 10/29/24 12:58 Pulse Ox 95 10/29/24 16:00 FiO2 100 10/29/24 16:00 Intake & Output 10/28/24 10/29/24 10/29/24 18:59 06:59 18:59 Intake Total 2153.417 8668.933 1511.231 Output Total 5653 70 7415 Balance -3499.583 1434.598 -5669.769 Weight 184.8 kg 184.8 kg Intake: IV 236 36 170 Piperacillin-Tazobactam 3 200 .375 gm In Sodium Chloride 0.9% 100 ml @ 25 mls/hr IVPB Q8H SUMEET Rx#: [id number] Pressure Bag 36 36 30 Sodium Chloride 0.9% 1, 140 000 ml @ 20 mls/hr IV . Q24H SUMEET Rx#:[id number] Intake, IV Titration 8832.426 9775.598 1085.231 Amount Cisatracurium 200 mg In 141.667 200.581 143.118 Sodium Chloride 0.9% 180 ml @ 1 MCG/KG/MIN 8.709 mls/hr IV .[id number] SUMEET Rx #:[id number] DOPamine DRIP 800 mg In 206.001 72.029 104.351 Dextrose/Water 1 250ml. bag @ 1 MCG/KG/MIN 2.722 mls/hr IV .Q24H SUMEET Rx#: [id number] Piperacillin-Tazobactam 3 100 .375 gm In Sodium Chloride 0.9% 100 ml @ 25 mls/hr IVPB Q12H SUMEET Rx# :[id number] fentaNYL (PF) 2,500 mcg 451.416 249.174 250 In Sodium Chloride 0.9% 200 ml @ 2 MCG/KG/HR 29. 03 mls/hr IV .Q8H37M SUMEET Rx#:[id number] propofoL 1,000 mg In 628.333 636.814 487.762 Empty Bag 1 bag @ 15 MCG/ KG/MIN 13.064 mls/hr IV . Q7H40M [facility] Rx#:[id number] Tube Feeding 220 60 Hemodialysis 400 400 Other 90 90 30 Output: Urine 53 70 15 Hemodialysis 3000 3900 Hemodialysis Net Amount 2600 3500 Other: Voiding Method Indwelling Catheter Indwelling Catheter Indwelling Catheter ABP, PAP, CO, CI - Last Documented Arterial Blood Pressure 104/51 - Exam General: Lying in bed and does not appear in acute distress. Lung: Intubated on a ventilator. Neuro: Very limited. Is on IV Nimbex, IV Propofol and IV Fentanyl. Patient is comatose. GCS 3 (E1, VT1, M1). Pupils are round, equal 4mm and reactive to light. No cortical function noted at this time and limited because of sedation and is on high Vent Setting (A/C 33). Motor: Strength is limited in assessment. Decrease tone throughout. No spontaneous movement. Plantars: Mute bilaterally. Some of the workup during this hospital visit consisted of: Creatnine is trending down. Her AST is trending up as high as 7474-->5400 ALT is also trending up as high as 7846-->8772. POC glucose was low at 60 yesterday and it has been in the range of 100s to 300s. Potassium was as high as 8.6 on presentation and now it is currently normalized. Routine EEG: Is abnormal. The background slowing is suggestive of moderate encephalopathy. There is no focal slowing, OptiForm discharge or seizure on the EEG. The diffuse suppression is likely due to medication effect (IV Propofol). - Labs CBC & Chem 7: 10/29/24 06:00 10/29/24 06:00 Labs: Abnormal Lab Results - Last 24 Hours (Table) 10/28/24 10/28/24 10/29/24 Range/Units 17:15 17:55 00:04 Hgb (11.4-16.0) gm/dL RDW (11.5-15.5) % Neutrophils # (1.3-7.7) k/uL Lymphocytes # (1.0-4.8) k/uL ABG pH (7.35-7.45) ABG pCO2 (35-45) mmHg ABG pO2 (83-108) mmHg ABG HCO3 (21-25) mmol/L ABG Total CO2 (19-24) mmol/L ABG O2 Saturation (94-97) % Hemoglobin (11.4-16.0) gm/dL Sodium (137-145) mmol/L Potassium 5.4 H (3.5-5.1) mmol/L Chloride (98-107) mmol/L BUN (7-17) mg/dL Creatinine (0.52-1.04) mg/dL Glucose (74-99) mg/dL POC Glucose (mg/dL) 180 H 179 H (70-110) mg/dL Calcium (8.4-10.2) mg/dL AST (14-36) U/L ALT (4-34) U/L 10/29/24 10/29/24 10/29/24 Range/Units 05:00 05:59 06:00 Hgb 11.2 L (11.4-16.0) gm/dL RDW 18.2 H (11.5-15.5) % Neutrophils # 7.8 H (1.3-7.7) k/uL Lymphocytes # 0.3 L (1.0-4.8) k/uL ABG pH 7.32 L (7.35-7.45) ABG pCO2 51 H (35-45) mmHg ABG pO2 59 L* (83-108) mmHg ABG HCO3 26 H (21-25) mmol/L ABG Total CO2 28 H (19-24) mmol/L ABG O2 Saturation 87.4 L (94-97) % Hemoglobin 11.0 L (11.4-16.0) gm/dL Sodium (137-145) mmol/L Potassium (3.5-5.1) mmol/L Chloride (98-107) mmol/L BUN (7-17) mg/dL Creatinine (0.52-1.04) mg/dL Glucose (74-99) mg/dL POC Glucose (mg/dL) 170 H (70-110) mg/dL Calcium (8.4-10.2) mg/dL AST (14-36) U/L ALT (4-34) U/L 10/29/24 10/29/24 10/29/24 Range/Units 06:00 06:00 11:50 Hgb (11.4-16.0) gm/dL RDW (11.5-15.5) % Neutrophils # (1.3-7.7) k/uL Lymphocytes # (1.0-4.8) k/uL ABG pH (7.35-7.45) ABG pCO2 (35-45) mmHg ABG pO2 (83-108) mmHg ABG HCO3 (21-25) mmol/L ABG Total CO2 (19-24) mmol/L ABG O2 Saturation (94-97) % Hemoglobin (11.4-16.0) gm/dL Sodium 125 L (137-145) mmol/L Potassium 5.4 H (3.5-5.1) mmol/L Chloride 93 L (98-107) mmol/L BUN 63 H (7-17) mg/dL Creatinine 3.50 H (0.52-1.04) mg/dL Glucose 170 H (74-99) mg/dL POC Glucose (mg/dL) 137 H (70-110) mg/dL Calcium 7.5 L (8.4-10.2) mg/dL AST 2071 H (14-36) U/L ALT 6491 H (4-34) U/L Microbiology - Last 24 Hours (Table) 10/26/24 15:54 Blood Culture - Preliminary Blood Assessment and Plan Assessment: This is a 54-year-old woman with history of COPD on home oxygen who the past couple days she has been confused hallucinating and it seems that according to the her oxygen saturation at home was as low as 70% and the heart rate was in the 20s. In our facility oxygen saturation is in the 80s, bradycardic in the 30s currently she is tachypneic. Also has hypotension as low as 60s over 30s. On examination patient has significantly dilated pupil over the right compared to the left which is sluggishly reactive to light. She is unstable for imaging of the brain. States that she has significant hyperkalemia Altered mental status seems due to hypoxic and metabolic encephalopathy. Possible anoxic encephalopathy vs ?brain injury due to her severe hypoxia. Her anisocoria (dilated right pupil is better today and is close same size as left). Examination is very limited since is on Nimbex and Sedation (IV Propofol and Fentanyl) Acute on chronic hypoxic respiratory failure Severe bradycardia with hypovolemic shock Acute kidney injury Severe acute hyperkalemia Liver shock Recent history of knee surgery History of pulmonary hypertension History of migraine History of nicotine dependence Plan: Once the patient is more stable recommend to pursue with CT of the head. Once the patient is more stable recommend holding sedation and paralytic for better neurological examination Nephrology is on board and patient had dialysis. Will defer the rest of the medical management to primary and other specialist Patient condition is critical. Plan discussed with patient's daughter who is at bedside and her ICU nurse. Time with Patient: Less than 30
[2024-10-29 17:40] LABS: Glucose,Whole Blood 156 mg/dL (70-110)
[2024-10-29 20:17] LABS: Glucose,Whole Blood 159 mg/dL (70-110)
--- NOTE | 2024-10-29 22:52 | PN ---
PROGRESS NOTE SUBJECTIVE: Kim is a 54-year-old lady, who remains intubated and on the vent. She had altered mental status, bradycardia, and hyperkalemia. She is being dialyzed and they were able to take out 2.5 L yesterday and they are going to do the same today. Bradycardia had resolved. Electrolytes today show that the potassium is 5.4. Hemoglobin is 11.2. OBJECTIVE: GENERAL: Comfortable at rest. VITAL SIGNS: Heart rate is 78 beats per minute, blood pressure is 117/51, and respiratory rate is 18. CHEST: Diminished air entry at the bases. HEART: First and second heart sounds. No gallop. EXTREMITIES: Bilateral pitting edema. ASSESSMENT: 1. Vent requiring respiratory failure. 2. Bradycardia secondary to hyperkalemia. 3. Acute renal failure. PLAN: Patient is being dialyzed. FELIX / MERYLN: [id number] /
[2024-10-29 23:37] LABS: Glucose,Whole Blood 152 mg/dL (70-110)
[2024-10-30 05:25] LABS: Glucose,Whole Blood 158 mg/dL (70-110)
[2024-10-30 05:33] LABS: ABG Base Excess 0.2 mmol/L; ABG HCO3 26 mmol/L (21-25); ABG Oxygen Saturation 93.2 % (94-97); ABG PCO2 46 mmHg (35-45); ABG PH 7.36 (7.35-7.45); ABG PO2 71 mmHg (83-108); ABG TCO2 27 mmol/L (19-24); Allen Test Performed? Yes
[2024-10-30 05:51] LABS: Anisocytosis Slight; Basophils % (A) 0 %; Eosinophils % (A) 0 %; HCT 34.1 % (34.0-46.0); HGB 10.7 gm/dL (11.4-16.0); Hypochromasia Slight; Lymphocytes # (A) 0.3 k/uL (1.0-4.8); Lymphocytes % (A) 4 %; MCH 26.1 pg (25.0-35.0); MCHC 31.3 g/dL (31.0-37.0); MCV 83.2 fL (80.0-100.0); Mean Platelet Volume 10.2; Microcytosis Slight; Monocytes # (A) 0.4 k/uL (0-1.0); Monocytes % (A) 5 %; Neutrophils # (A) 6.9 k/uL (1.3-7.7); Neutrophils % (A) 89 %; Platelet Count 155 k/uL (150-450); Poikilocytosis Slight; RDW 18.3 % (11.5-15.5); WBC 7.7 k/uL (3.8-10.6)
[2024-10-30 06:04] LABS: African American GFR (CKD) 16 (>60 ml/min/1.73 sqM); Anion Gap 11 mmol/L; Blood Urea Nitrogen 57 mg/dL (7-17); Calcium 7.6 mg/dL (8.4-10.2); Carbon Dioxide 22 mmol/L (22-30); Chloride 93 mmol/L (98-107); Glucose 150 mg/dL (74-99); Non-African American GFR(CKD) 14 (>60 ml/min/1.73 sqM); Potassium 4.9 mmol/L (3.5-5.1); Sodium 126 mmol/L (137-145)
[2024-10-30 06:56] LABS: Glucose,Whole Blood 169 mg/dL (70-110)
--- NOTE | 2024-10-30 07:55 | XR ---
EXAMINATION TYPE: XR chest 1V portable DATE OF EXAM: 10/30/2024 5:39 AM COMPARISON: 10/29/2024 CLINICAL INDICATION: Female, 54 years old with history of Pt. intubated, , FINDINGS: ET tube satisfactory. NG tube courses below the diaphragm. Portable exam further limited by semiuprig ht positioning and large body habitus. There is undergoing mild to moderate cardiomegaly. Similar to worsening consolidation in the mid and lower lungs, right greater than left. Right CVC tip lower SVC. IMPRESSION: Similar to worsening consolidation mid and lower lungs, right greater than left. Similar cardiomegaly . [facility], , 10/30/2024 7:53 AM
--- NOTE | 2024-10-30 10:35 | P.PN ---
Subjective Patient is seen in follow-up for acute kidney injury. Started on hemodialysis October 26, 2024. Remains on dopamine drip. Epinephrine discontinued. Off IV fluids. Receiving tube feeds. Remains oliguric. Undergoing hemodialysis. Remains on 100% FiO2. Vital signs are stable. General: Resting in bed. HEENT: Intubated. LUNGS: Scattered rhonchi. HEART: Rate and Rhythm are regular. ABDOMEN: Obese. EXTREMITITES: 1+ edema. Objective - Vital Signs Vital signs: Vital Signs Temp 98.4 F 10/30/24 08:00 Pulse 71 10/30/24 10:00 Resp 33 H 10/30/24 10:00 BP 125/54 10/29/24 12:58 Pulse Ox 93 L 10/30/24 10:00 FiO2 100 10/30/24 08:43 Intake & Output 10/29/24 10/30/24 10/30/24 18:59 06:59 18:59 Intake Total 2401.231 1523.550 781.867 Output Total 7420 52 0 Balance -5018.769 1471.550 781.867 Weight 184.8 kg 187 kg Intake: IV 236 196 92 Pressure Bag 36 36 12 Sodium Chloride 0.9% 1, 200 160 80 000 ml @ 20 mls/hr IV . Q24H SUMEET Rx#:[id number] Intake, IV Titration 7644.006 3188.550 579.867 Amount Cisatracurium 200 mg In 143.118 168.519 Sodium Chloride 0.9% 180 ml @ 1 MCG/KG/MIN 8.709 mls/hr IV .[id number] SUMEET Rx #:[id number] DOPamine DRIP 800 mg In 104.351 63.679 Dextrose/Water 1 250ml. bag @ 1 MCG/KG/MIN 2.722 mls/hr IV .Q24H SUMEET Rx#: [id number] Piperacillin-Tazobactam 3 100 100 .375 gm In Sodium Chloride 0.9% 100 ml @ 25 mls/hr IVPB Q12H SUMEET Rx# :[id number] fentaNYL (PF) 2,500 mcg 500 209.5 245.304 In Sodium Chloride 0.9% 200 ml @ 2 MCG/KG/HR 29. 03 mls/hr IV .Q8H37M SU[facility]ET Rx#:[id number] propofoL 1,000 mg In 587.762 644.371 166.044 Empty Bag 1 bag @ 15 MCG/ KG/MIN 13.064 mls/hr IV . Q7H40M [facility] Rx#:[id number] Tube Feeding 240 220 80 Hemodialysis 400 Other 90 90 30 Output: Urine 20 52 0 Hemodialysis 3900 Hemodialysis Net Amount 3500 Other: Voiding Method Indwelling Catheter Indwelling Catheter Indwelling Catheter ABP, PAP, CO, CI - Last Documented Arterial Blood Pressure 133/53 - Labs CBC & Chem 7: 10/30/24 05:24 10/30/24 05:24 Labs: Abnormal Lab Results - Last 24 Hours (Table) 10/29/24 10/29/24 10/29/24 Range/Units 06:00 11:50 17:37 Hgb (11.4-16.0) gm/dL RDW (11.5-15.5) % Lymphocytes # (1.0-4.8) k/uL ABG pCO2 (35-45) mmHg ABG pO2 (83-108) mmHg ABG HCO3 (21-25) mmol/L ABG Total CO2 (19-24) mmol/L ABG O2 Saturation (94-97) % Hemoglobin (11.4-16.0) gm/dL Sodium (137-145) mmol/L Chloride (98-107) mmol/L BUN (7-17) mg/dL Creatinine (0.52-1.04) mg/dL Glucose (74-99) mg/dL POC Glucose (mg/dL) 137 H 156 H (70-110) mg/dL Calcium (8.4-10.2) mg/dL AST 2071 H (14-36) U/L ALT 6491 H (4-34) U/L 10/29/24 10/29/24 10/30/24 Range/Units 20:16 23:36 05:24 Hgb (11.4-16.0) gm/dL RDW (11.5-15.5) % Lymphocytes # (1.0-4.8) k/uL ABG pCO2 (35-45) mmHg ABG pO2 (83-108) mmHg ABG HCO3 (21-25) mmol/L ABG Total CO2 (19-24) mmol/L ABG O2 Saturation (94-97) % Hemoglobin (11.4-16.0) gm/dL Sodium (137-145) mmol/L Chloride (98-107) mmol/L BUN (7-17) mg/dL Creatinine (0.52-1.04) mg/dL Glucose (74-99) mg/dL POC Glucose (mg/dL) 159 H 152 H 158 H (70-110) mg/dL Calcium (8.4-10.2) mg/dL AST (14-36) U/L ALT (4-34) U/L 10/30/24 10/30/24 10/30/24 Range/Units 05:24 05:24 05:30 Hgb 10.7 L (11.4-16.0) gm/dL RDW 18.3 H (11.5-15.5) % Lymphocytes # 0.3 L (1.0-4.8) k/uL ABG pCO2 46 H (35-45) mmHg ABG pO2 71 L (83-108) mmHg ABG HCO3 26 H (21-25) mmol/L ABG Total CO2 27 H (19-24) mmol/L ABG O2 Saturation 93.2 L (94-97) % Hemoglobin 10.9 L (11.4-16.0) gm/dL Sodium 126 L (137-145) mmol/L Chloride 93 L (98-107) mmol/L BUN 57 H (7-17) mg/dL Creatinine 3.54 H (0.52-1.04) mg/dL Glucose 150 H (74-99) mg/dL POC Glucose (mg/dL) (70-110) mg/dL Calcium 7.6 L (8.4-10.2) mg/dL AST (14-36) U/L ALT (4-34) U/L 10/30/24 Range/Units 06:55 Hgb (11.4-16.0) gm/dL RDW (11.5-15.5) % Lymphocytes # (1.0-4.8) k/uL ABG pCO2 (35-45) mmHg ABG pO2 (83-108) mmHg ABG HCO3 (21-25) mmol/L ABG Total CO2 (19-24) mmol/L ABG O2 Saturation (94-97) % Hemoglobin (11.4-16.0) gm/dL Sodium (137-145) mmol/L Chloride (98-107) mmol/L BUN (7-17) mg/dL Creatinine (0.52-1.04) mg/dL Glucose (74-99) mg/dL POC Glucose (mg/dL) 169 H (70-110) mg/dL Calcium (8.4-10.2) mg/dL AST (14-36) U/L ALT (4-34) U/L Microbiology - Last 24 Hours (Table) 10/26/24 15:54 Blood Culture - Preliminary Blood Assessment and Plan Plan: Assessment: 1. Acute kidney injury secondary to ATN secondary to bradycardia, hypotension further worsen with the use of NSAIDs and diuretics. Baseline creatinine 0.7- 0.8 and 3.31 on admission. Oliguric. Started on hemodialysis October 26, 2024 via femoral dialysis catheter. No hydronephrosis noted on kidney ultrasound. 2. Hyperkalemia secondary to acute kidney injury, acidosis, NSAIDs, potassium supplementation. Improved. 3. Bradycardia secondary to hyperkalemia. Improved. 4. Metabolic acidosis secondary to acute kidney injury. Status post bicarb drip. Improved. 5. Shock liver. 6. Recent right knee surgery with subsequent fall. Will need further intervention in the future. 7. Hyponatremia secondary to acute kidney injury, hypervolemic. Also receiving some IV meds with hypotonic fluids. 8. Acute hypoxic respiratory failure. Intubated. Plan: Continue with daily dialysis for now. Challenge ultrafiltration. Tolerated 3.5 L ultrafiltration yesterday. Maintain tube feeds. Monitor for renal recovery. Wean FiO2 and vasopressors. Maintain midodrine. Preserved ejection fraction noted on echocardiogram. Avoid nephrotoxins. IV Lasix given October 27, 2024 with minimal response in urine output.
[2024-10-30 12:03] LABS: Glucose,Whole Blood 144 mg/dL (70-110)
--- NOTE | 2024-10-30 12:54 | P.PN ---
Subjective Progress Note Date: 10/30/24 I am following-up with patient and she is about the same. She is still unstable to pursue with CT head because of her respiratory condition. She continues to be on IV Nimbex, Propofol and Fentanyl. Objective - Vital Signs Vital signs: Vital Signs Temp 98.2 F 10/30/24 11:27 Pulse 70 10/30/24 11:27 Resp 33 H 10/30/24 11:27 BP 130/51 10/30/24 11:27 Pulse Ox 94 L 10/30/24 11:27 FiO2 100 10/30/24 11:58 Intake & Output 10/29/24 10/30/24 10/30/24 18:59 06:59 18:59 Intake Total 2401.231 2572.029 1023.363 Output Total 7420 52 7400 Balance -5018.769 1471.550 -6159.637 Weight 184.8 kg 187 kg 187 kg Intake: IV 236 196 92 Pressure Bag 36 36 12 Sodium Chloride 0.9% 1, 200 160 80 000 ml @ 20 mls/hr IV . Q24H [facility] Rx#:[id number] Intake, IV Titration 3745.654 5692.550 638.363 Amount Cisatracurium 200 mg In 143.118 168.519 Sodium Chloride 0.9% 180 ml @ 1 MCG/KG/MIN 8.709 mls/hr IV .[id number] [facility]ET Rx #:[id number] DOPamine DRIP 800 mg In 104.351 63.679 Dextrose/Water 1 250ml. bag @ 1 MCG/KG/MIN 2.722 mls/hr IV .Q24H [facility]ET Rx#: [id number] Piperacillin-Tazobactam 3 100 100 .375 gm In Sodium Chloride 0.9% 100 ml @ 25 mls/hr IVPB Q12H SU[facility]ET Rx# :[id number] fentaNYL (PF) 2,500 mcg 500 209.5 245.304 In Sodium Chloride 0.9% 200 ml @ 2 MCG/KG/HR 29. 03 mls/hr IV .Q8H37M [facility] Rx#:[id number] propofoL 1,000 mg In 587.762 644.371 166.044 Empty Bag 1 bag @ 15 MCG/ KG/MIN 13.064 mls/hr IV . Q7H40M [facility] Rx#:[id number] propofoL 1,000 mg In 58.496 Empty Bag 1 bag @ 15 MCG/ KG/MIN 13.064 mls/hr IV . Q7H40M [facility] Rx#:[id number] Tube Feeding 240 220 80 Hemodialysis 400 400 Other 90 90 30 Output: Urine 20 52 0 Hemodialysis 3900 3900 Hemodialysis Net Amount 3500 3500 Other: Voiding Method Indwelling Catheter Indwelling Catheter Indwelling Catheter ABP, PAP, CO, CI - Last Documented Arterial Blood Pressure 133/53 - Exam General: Lying in bed and does not appear in acute distress. Lung: Intubated on a ventilator. Neuro: Very limited. Is on IV Nimbex, IV Propofol and IV Fentanyl. Patient is comatose. GCS 3 (E1, VT1, M1). Pupils are round, equal 4mm and reactive to light. Has mild cough to suctioning. No cortical function noted at this time and limited because of sedation and is on high Vent Setting (A/C 33). Motor: Strength is limited in assessment. Decrease tone throughout. No spontaneous movement. Plantars: Mute bilaterally. Some of the workup during this hospital visit consisted of: Creatnine is trending down. Her AST is trending up as high as 7474-->5400 ALT is also trending up as high as 7846-->8772. POC glucose was low at 60 yesterday and it has been in the range of 100s to 300s. Potassium was as high as 8.6 on presentation and now it is currently normalized. Routine EEG: Is abnormal. The background slowing is suggestive of moderate encephalopathy. There is no focal slowing, OptiForm discharge or seizure on the EEG. The diffuse suppression is likely due to medication effect (IV Propofol). - Labs CBC & Chem 7: 10/30/24 05:24 10/30/24 05:24 Labs: Abnormal Lab Results - Last 24 Hours (Table) 10/29/24 10/29/24 10/29/24 Range/Units 17:37 20:16 23:36 Hgb (11.4-16.0) gm/dL RDW (11.5-15.5) % Lymphocytes # (1.0-4.8) k/uL ABG pCO2 (35-45) mmHg ABG pO2 (83-108) mmHg ABG HCO3 (21-25) mmol/L ABG Total CO2 (19-24) mmol/L ABG O2 Saturation (94-97) % Hemoglobin (11.4-16.0) gm/dL Sodium (137-145) mmol/L Chloride (98-107) mmol/L BUN (7-17) mg/dL Creatinine (0.52-1.04) mg/dL Glucose (74-99) mg/dL POC Glucose (mg/dL) 156 H 159 H 152 H (70-110) mg/dL Calcium (8.4-10.2) mg/dL 10/30/24 10/30/24 10/30/24 Range/Units 05:24 05:24 05:24 Hgb 10.7 L (11.4-16.0) gm/dL RDW 18.3 H (11.5-15.5) % Lymphocytes # 0.3 L (1.0-4.8) k/uL ABG pCO2 (35-45) mmHg ABG pO2 (83-108) mmHg ABG HCO3 (21-25) mmol/L ABG Total CO2 (19-24) mmol/L ABG O2 Saturation (94-97) % Hemoglobin (11.4-16.0) gm/dL Sodium 126 L (137-145) mmol/L Chloride 93 L (98-107) mmol/L BUN 57 H (7-17) mg/dL Creatinine 3.54 H (0.52-1.04) mg/dL Glucose 150 H (74-99) mg/dL POC Glucose (mg/dL) 158 H (70-110) mg/dL Calcium 7.6 L (8.4-10.2) mg/dL 10/30/24 10/30/24 10/30/24 Range/Units 05:30 06:55 12:01 Hgb (11.4-16.0) gm/dL RDW (11.5-15.5) % Lymphocytes # (1.0-4.8) k/uL ABG pCO2 46 H (35-45) mmHg ABG pO2 71 L (83-108) mmHg ABG HCO3 26 H (21-25) mmol/L ABG Total CO2 27 H (19-24) mmol/L ABG O2 Saturation 93.2 L (94-97) % Hemoglobin 10.9 L (11.4-16.0) gm/dL Sodium (137-145) mmol/L Chloride (98-107) mmol/L BUN (7-17) mg/dL Creatinine (0.52-1.04) mg/dL Glucose (74-99) mg/dL POC Glucose (mg/dL) 169 H 144 H (70-110) mg/dL Calcium (8.4-10.2) mg/dL Microbiology - Last 24 Hours (Table) 10/26/24 15:54 Blood Culture - Preliminary Blood Assessment and Plan Assessment: This is a 54-year-old woman with history of COPD on home oxygen who the past couple days she has been confused hallucinating and it seems that according to the her oxygen saturation at home was as low as 70% and the heart rate was in the 20s. In our facility oxygen saturation is in the 80s, bradycardic in the 30s currently she is tachypneic. Also has hypotension as low as 60s over 30s. On examination patient has significantly dilated pupil over the right compared to the left which is sluggishly reactive to light. She is unstable for imaging of the brain. States that she has significant hyperkalemia Altered mental status seems due to hypoxic and metabolic encephalopathy. Possible anoxic encephalopathy vs ?brain injury due to her severe hypoxia. Her anisocoria (dilated right pupil is better today and is close same size as left). Examination is very limited since is on Nimbex and Sedation (IV Propofol and Fentanyl) Acute on chronic hypoxic respiratory failure Severe bradycardia with hypovolemic shock Acute kidney injury Severe acute hyperkalemia Liver shock Recent history of knee surgery History of pulmonary hypertension History of migraine History of nicotine dependence Plan: Once the patient is more stable recommend to pursue with CT of the head. Once the patient is more stable recommend holding sedation and paralytic for better neurological examination Nephrology is on board and patient had dialysis. Will defer the rest of the medical management to primary and other specialist Patient condition is critical. Plan discussed with patient's mother and ICU attending. Time with Patient: Less than 30
--- NOTE | 2024-10-30 14:26 | P.PN ---
Subjective Progress Note Date: 10/30/24 H&P Date: 10/26/24 This is a 54-year-old female with past medical history significant for recent knee surgery proximately within the last 3 months with fall postoperatively 1 week ago, osteoarthritis, treated for UTI outpatient last week with Macrobid, COPD, migraines, hypertension, osteoarthritis, morbid obesity, sleep apnea, anxiety, depression, nicotine dependence and multiple other medical issues brought into the ER via EMS with reports of confusion, hallucinations, hypoxia, hypotension. Family reports patient nauseated and dizzy since Saturday night. on EMS arrival, reported systolic blood pressure of 80s, O2 sats of 70% on room air, placed on nonrebreather, EKG reported severe bradycardia with heart rates in the 20s and 30s. ER reports ,on arrival patient was alert and oriented to person and place, reported she had taken an additional [place] as well as an additional Flexeril for knee pain. Creatinine 3.24 on admission, currently at 3.3, baseline 0.7. Hyperkalemic cocktail administered for potassium at 8.6 , currently down to 6.3. EKG reported wide-complex bradycardia, junctional. ABGs reported pH of 7.14, pCO2 53, pO2 87, bicarb 18, total CO2 20 O2 sat 94 with a base excess of -11.1 on 70% FiO2. patient was intubated, taken to the [facility] for transvenous pacer, but spontaneously converted to sinus rhythm. Currently ventilator dependent with FiO2 100%/+8 with PEEP. Maintained on epinephrine and dopamine. Continues on bicarb drip. chest x-ray reported cardiomegaly, worsening pulmonary edema versus massive pneumonia ,antibiotics initiated. Hemo globin A1c 6.0. T. bili 2.2, AST 3715, ALT 4016, alk phos 155. Hepatitis panel in progress. troponin negative x 1. TSH 9.660, free T4 1.35. 10/27/2024 Vent dependent .hemodialysis initiated yesterday. Maintained on bicarb drip, acidosis improving, bicarb 32, discontinued. Continues on dopamine and epinephrine drips echo reporting normal LV function, RVSP 66. Chest x-ray reporting persistent moderate large amount airspace opacities throughout both lungs more on the right, similar. 10/28/2024 Vent dependent, yesterday vent settings of 100% FiO2 +12 of PEEP; today FiO2 100%/+15 of PEEP on pressure control. Lasix attempted yesterday, no improvement. Chest x-ray reporting cardiomegaly, ongoing interstitial and patchy opacities, continue small effusions with adjacent atelectasis and/or consolidation. Received hemodialysis yesterday and today. Renal function improving, bicarb 28, BUN 47, creatinine 2.51. remains on Nimbex, diprovan, dopamine and fentanyl drips. Calcium 7.5, received calcium gluconate. Worsening LFTs. Maintained on Zosyn, Decadron, sputum culture reporting Pse udomonas aeruginosa Tmax 99, WBC 11.2. Venous Doppler pending. 10/29/2024 ventilator dependent, maintained on 100% FiO2/+15 PEEP. Continues on Nimbex ,diprovan ,fentanyl, dopamine drips. Midodrine added to med regimen. Continues on Zosyn, nebulized bronchodilators, dexamethasone. Blood sugars better controlled.Afebrile, normal WBC. HD today. LFTs trending down. Albumin 2.9. 10/30/2024 unstable to travel off the floor for further imaging/studies. Remains vent dependent with FiO2 100%/+15 PEEP. Maintained on diprovan, Nimbex, dopamine, fentanyl drips.EEG reported abnormal, background slowing, moderate encephalopathy ; diffuse suppression likely due to medication -propofol .continues on daily hemodialysis. Continues on Zosyn for sputum positive with Pseudomonas aeruginosa. Objective - Vital Signs Vital signs: Vital Signs Temp 98.1 F 10/30/24 12:00 Pulse 75 10/30/24 13:13 Resp 33 H 10/30/24 13:00 BP 130/51 10/30/24 11:27 Pulse Ox 96 10/30/24 13:00 FiO2 100 10/30/24 12:00 Intake & Output 10/29/24 10/30/24 10/30/24 18:59 06:59 18:59 Intake Total 2401.231 7610.467 0490.363 Output Total 3494 01 0400 Balance -5173.851.6526.550 -6015.350 Weight 184.8 kg 187 kg 187 kg Intake: IV 236 196 171 Piperacillin-Tazobactam 3 50 .375 gm In Sodium Chloride 0.9% 100 ml @ 25 mls/hr IVPB Q12H [facility] Rx# :[id number] Pressure Bag 36 36 21 Sodium Chloride 0.9% 1, 200 160 100 000 ml @ 20 mls/hr IV . Q24H [facility] Rx#:[id number] Intake, IV Titration 4763.986 4349.550 638.363 Amount Cisatracurium 200 mg In 143.118 168.519 Sodium Chloride 0.9% 180 ml @ 1 MCG/KG/MIN 8.709 mls/hr IV .[id number] [facility] Rx #:[id number] DOPamine DRIP 800 mg In 104.351 63.679 Dextrose/Water 1 250ml. bag @ 1 MCG/KG/MIN 2.722 mls/hr IV .Q24H [facility] Rx#: [id number] Piperacillin-Tazobactam 3 100 100 .375 gm In Sodium Chloride 0.9% 100 ml @ 25 mls/hr IVPB Q12H [facility] Rx# :[id number] fentaNYL (PF) 2,500 mcg 500 209.5 245.304 In Sodium Chloride 0.9% 200 ml @ 2 MCG/KG/HR 29. 03 mls/hr IV .Q8H37M [facility] Rx#:[id number] propofoL 1,000 mg In 587.762 644.371 166.044 Empty Bag 1 bag @ 15 MCG/ KG/MIN 13.064 mls/hr IV . Q7H40M [facility] Rx#:[id number] propofoL 1,000 mg In 58.496 Empty Bag 1 bag @ 15 MCG/ KG/MIN 13.064 mls/hr IV . Q7H40M [facility] Rx#:[id number] Tube Feeding 240 220 140 Hemodialysis 400 400 Other 90 90 60 Output: Urine 20 52 25 Hemodialysis 3900 3900 Hemodialysis Net Amount 3500 3500 Other: Voiding Method Indwelling Catheter Indwelling Catheter Indwelling Catheter ABP, PAP, CO, CI - Last Documented Arterial Blood Pressure 133/53 - Exam PHYSICAL EXAM: VITAL SIGNS: As above GENERAL: Intubated ,sedated and on paralytics. HEENT: Normocephalic, atraumatic ,Conjunctivae normal. NECK: Supple, No JVD. CARDIOVASCULAR: S1, S2 regular.No murmur. RESPIRATION: Diminished, scattered rhonchi throughout ABDOMEN: Soft, nontender,obese, nondistended ,positive Bowel sounds. LEGS: Positive edema NERVOUS SYSTEM: unable to evaluate as patient sedated , intubated and on paral ytic Skin: Warm and dry, no rash - Labs CBC & Chem 7: 10/30/24 05:24 12 05:24 Labs: Abnormal Lab Results - Last 24 Hours (Table) 10/29/24 10/29/24 10/29/24 Range/Units 17:37 20:16 23:36 Hgb (11.4-16.0) gm/dL RDW (11.5-15.5) % Lymphocytes # (1.0-4.8) k/uL ABG pCO2 (35-45) mmHg ABG pO2 (83-108) mmHg ABG HCO3 (21-25) mmol/L ABG Total CO2 (19-24) mmol/L ABG O2 Saturation (94-97) % Hemoglobin (11.4-16.0) gm/dL Sodium (137-145) mmol/L Chloride (98-107) mmol/L BUN (7-17) mg/dL Creatinine (0.52-1.04) mg/dL Glucose (74-99) mg/dL POC Glucose (mg/dL) 156 H 159 H 152 H (70-110) mg/dL Calcium (8.4-10.2) mg/dL 10/30/24 10/30/24 10/30/24 Range/Units 05:24 05:24 05:24 Hgb 10.7 L (11.4-16.0) gm/dL RDW 18.3 H (11.5-15.5) % Lymphocytes # 0.3 L (1.0-4.8) k/uL ABG pCO2 (35-45) mmHg ABG pO2 (83-108) mmHg ABG HCO3 (21-25) mmol/L ABG Total CO2 (19-24) mmol/L ABG O2 Saturation (94-97) % Hemoglobin (11.4-16.0) gm/dL Sodium 126 L (137-145) mmol/L Chloride 93 L (98-107) mmol/L BUN 57 H (7-17) mg/dL Creatinine 3.54 H (0.52-1.04) mg/dL Glucose 150 H (74-99) mg/dL POC Glucose (mg/dL) 158 H (70-110) mg/dL Calcium 7.6 L (8.4-10.2) mg/dL 10/30/24 10/30/24 10/30/24 Range/Units 05:30 06:55 12:01 Hgb (11.4-16.0) gm/dL RDW (11.5-15.5) % Lymphocytes # (1.0-4.8) k/uL ABG pCO2 46 H (35-45) mmHg ABG pO2 71 L (83-108) mmHg ABG HCO3 26 H (21-25) mmol/L ABG Total CO2 27 H (19-24) mmol/L ABG O2 Saturation 93.2 L (94-97) % Hemoglobin 10.9 L (11.4-16.0) gm/dL Sodium (137-145) mmol/L Chloride (98-107) mmol/L BUN (7-17) mg/dL Creatinine (0.52-1.04) mg/dL Glucose (74-99) mg/dL POC Glucose (mg/dL) 169 H 144 H (70-110) mg/dL Calcium (8.4-10.2) mg/dL Microbiology - Last 24 Hours (Table) 10/26/24 15:54 Blood Culture - Preliminary Blood Assessment and Plan Assessment: Bradycardia, severe, currently sinus Hyperkalemia secondary to NSAIDs, potassium and Hypotension maintained on dopamine, status post epinephrine Acute on chronic hypoxic respiratory failure, wears 2 L nasal cannula at home, mechanical ventilator dependent Sputum positive with Pseudomonas Acute renal failure secondary to ATN, related to all the above, requiring emergent hemodialysis Hyponatremia secondary to the above, hypervolemic Shock liver Metabolic acidosis, maintained on bicarb drip Altered mental status, secondary to hypoxic and metabolic encephalopathy Recent knee surgery, status post fall postoperative Recent UTI, treated outpatient with Macrobid last week Alpha-1 antitrypsin deficiency, history of Obstructive sleep apnea, wears CPAP at night History of pulmonary hypertension Ongoing nicotine dependence, marijuana edibles, and history of vaping Hypertension Hyperlipidemia Osteoarthritis Morbid obesity, BMI 55 Anxiety Depression Chronic peripheral neuropathy Chronic back pain History of Migraines, chronic Plan: Continue current medications and ,monitoring and symptomatic treatment. ICU/vent management as per medical reception. HD daily as per nephrology. Maintain tube feeds. neurology following. prognosis guarded given multiple complex medical issues. The impression and plan of care has been dictated as directed. : I performed a history and examination of this patient, discussed the same with the dictator. I agree with the dictator's note ,documented as a scribe. Any additional findings or plans will be noted.
--- NOTE | 2024-10-30 16:39 | P.PN ---
Subjective Progress Note Date: 10/30/24 Principal diagnosis: Acute on chronic hypoxic respiratory failure and acute hypercapnic respiratory failure with hypovolemic shock and severe bradycardia This is a 54-year-old female with history of multiple medical problems including COPD, chronic pain syndrome, dyslipidemia, bipolar disorder, hypertension, patient was brought into the ER yesterday mostly with change in mental status and according to family patient has been confused for the last 2 days, patient has been hallucinating and upon arrival to the ER she was noted to be severely bradycardic and hypotensive. Patient remained bradycardic, patient was seen by cardiology on consultation for her bradycardia, patient was taken to the cardiac [employer], her blood pressure was 120 on norepinephrine, decision was made to hold her pacemaker insertion. Previous cardiac workup from previous records has shown preserved systolic function and no documented ischemic heart disease. When labs were reviewed, patient was noted to have hyperkalemia and acute renal failure, shock liver profile, patient was intubated in the ER, she was eventually transferred to the ICU after she went to cardiac cath. But again pacemaker insertion was placed on hold. Patient is now intubated mechanically ventilated, she is on assist-control rate of 22 tidal volume 500 FiO2 100% and PEEP of 8 ABG showed a pO2 of 87 pCO2 53 pH of 7.14, her rate was increased to 26, patient received 1 amp of bicarb, and she was already on bicarb drip. Patient is on multiple drips including dopamine at 10 mcg/kg/min, propofol at 45 mg/kg/min Versed which I have discontinued 3 mg/h patient is also receiving epinephrine at 0.12 mcg/kg/min receiving 3 A of bicarb in D5W at 200 cc/h patient is hyperkalemic and follow-up sodium remains above 6, although the patient received the hyperkalemia protocol. Her initial potassium was 8.6 on her initial presentation. Patient already had a hemodialysis catheter placed by vascular surgery in the left groin, and she has a right IJ triple-lumen catheter. I went ahead and placed a right radial arterial line. Patient is scheduled to undergo hemodialysis today, patient is not responsive to any stimuli except deep painful stimuli noted while I was placing an arterial line, patient withdraws to painful stimuli/needlestick. Pupils are dilated and sluggishly reactive. Looking back at her history patient had total knee arthroplasty 3 months ago and she had a fall about a week ago may have sustained head injury however CT of the brain is pending patient is to be seen by neurology on consultation today. And she is being seen by many consultants including nephrology and cardiology. Overall picture is extremely poor and guarded. And the patient is critically ill. Blood sugars are running high as 336 liver enzymes are elevated including a bilirubin of 2.2 AST of 3715 ALT of 4016 and alkaline phosphatase of 155 Patient seen today on 10/27/2024, patient remains in the ICU, intubated and mecha nically ventilated sedated and paralyzed. Patient developed worsening pulmonary edema over the last 24 hours, hence she required higher FiO2 of 100% higher PEEP of 12 and she remains marginal as far as oxygenation is concerned. Patient is undergoing hemodialysis today no fluid was removed yesterday, and nephrology is planning to remove only 500 cc of fluid today. Patient remains on dopamine at 10 mcg/kg/min epinephrine at 0.02 mcg/kg/min Fentanyl at 2 mcg/kg/h propofol at 75 mcg/kg/min remains on Nimbex at 1 mcg/kg per minute and was supposed to have a CT of the brain yesterday, however the portion was relatively unstable could not have the CT of the brain done yesterday mostly because of arrhythmia and hypotension had to be brought back up to the ICU and she had to be paralyzed. Overall condition is not promising, actually her condition seems to be worse today compared to yesterday. Patient was seen by neurology on consultation still entertaining the possibility of anoxic brain injury due to severe hypoxia. The patient has anisocoria with right pupil larger than the left pupil full adequate neurological exam could not be fully done mostly because of the fact the patient is on Nimbex Fentanyl and propofol. Patient could not come off Nimbex mostly because could not be ventilated yesterday in spite of multiple sedatives including propofol and fentanyl. These were relatively high doses. She was very asynchronous with the ventilator, breathing over 40/min, had to be given Nimbex otherwise could not ventilate the patient. Today continues to have high peak airway pressure in the range of 40 high plateau pressures in the range of 34, and she has marginal oxygenation chest x-ray showed pulmonary edema underlying aspiration pneumonia is not entirely ruled out hence the patient remains on antibiotics empirically and she still receiving diuretics she is also on hemodialysis because she had complete renal shutdown on this admission. Her WBC count is 11.3 hemoglobin is 11.4 her ABG today showed a pO2 of 74 pCO2 72 pH of 7.26 basic metabolic profile showed potassium of 4.9 BUN of 82 creatinine 2.77 AST is 7474 ALT is 7846 worse today compared to yesterday. This is a picture of shock liver to mention the patient presented with acute tubular necrosis and acute kidney injury. Severe metabolic acidosis and severe hyperkalemia leading to bradycardia hypotension, cardiogram showed good LV function today, ejection fraction of 60 to 65% right-sided pressures are in the range of 66. Patient was seen today on 10/28/2024, remains in the ICU, remains intubated and mechanically ventilated. Patient is on assist-control rate of 3 0 tidal volume 400 FiO2 100% and PEEP of 15. However considering her relatively high peak airway pressure and plateau pressures I switched the patient to a pressure control mode of mechanical ventilation with PI of 23 TI 0.7 rate remains 33 and PEEP remains at 15. ABG earlier today showed a pO2 of 54 pCO2 50 pH of 7.35. Patient remains on Decadron remains on Zosyn, sputum is positive for Pseudomonas aeruginosa patient remains extremely oliguric 5 to 10 cc/h. He did not improve with Lasix yesterday. Remains on dialysis and she will have dialysis again today. Did not do a CT of the brain and could not do a CT of the chest mostly because of her instability. Recommending a venous Doppler to be done today. Time patient remains on Nimbex at 2 mcg/kg/min and dopamine 7.5 mcg/kg/min and I am cutting it down to 5 fentanyl at 2 mcg/kg/h propofol at 65 mcg/kg/min he is off epinephrine. Could use norepinephrine if necessary for low blood pressure. Right now she is only on dopamine which is to be tapered down to a renal perf usion dose if possible. This x-ray continues to show cardiomegaly and evidence of pulmonary edema, small bilateral pleural effusions and atelectasis. WBC count is 11.2 hemoglobin 11.9, sodium 124 potassium 6.6 enzymes remain elevated. Profile is abnormal with a BUN of 71 creatinine 3.20 patient is undergoing hemodialysis again today Seen today on 10/29/2024, patient remains in the ICU intubated mechanically ventilated sedated and paralyzed patient is on assist-control rate of 33 tidal volume 400 FiO2 100% and PEEP of 15 ABG showed a pO2 of 59 pCO2 51 pH of 7.32. Patient is having another hemodialysis today and the plan is to remove 2.5 L today. Patient remains on Nimbex at 2 mcg/kg/min and she also on vital HP at 20 cc/h dopamine at 2 mcg/kg/min Fentanyl at 2 mcg/kg/kg/h propofol at 65 mg/kg/min and IV fluid at KVO. Chest x-ray is basically about the same continues to show evidence of pulmonary edema and bilateral pleural effusion her labs showed low sodium of 125, bicarb is 24 BUN is 63 creatinine 3.50 liver enzymes are improving with ALT down to 6491, AST is down to 2071 venous Doppler of lower extremities could not be optimal because of her legs condition and swelling as w ell as body habitus, could not send the patient back down for CT angiogram of the chest and for CT of the head patient had some sort of head trauma, I am afraid to place patient empirically on heparin, and I am yet to stabilize the patient to have a CT of the head. Her clinical condition is extremely marginal at best, and I prefer not to send her down for CT of the chest and CT of the head at this point EEG did show evidence of moderate encephalopathy and I believe the patient must have sustained some significant anoxic brain injury Patient was seen today on 10/30/2024, remains in the ICU, intubated and mechanically ventilated. On assist-control rate of 33 tidal volume 400 FiO2 100% PEEP of 15 ABG showed a pO2 of 71 pCO2 46 pH of 7.36. Patient is having more hemodialysis today, and the plan is to remove 3 L of fluids. Patient remains on Demadex at 1 mcg/kg/min, dopamine at 0.5 mcg/kg/min Fentanyl at 2 mg/kg/h propofol 65 mcg/kg/min. Patient remains empirically on Zosyn much of major change noted in the last 24 hours, patient desaturates easily as soon as she goes down to flat position. Hence I am reluctant to send the patient down for CT of the brain and CT of the chest. Mother is at bedside and she was updated on her condition WBC count is 7.7 hemoglobin 10.7 sodium is 126 potassium 4.9 BUN is 57 creatinine 3.54 chest x-ray continues to show pleural effusions and pulmonary edema Objective - Vital Signs Vital signs: Vital Signs Temp 98.2 F 10/30/24 16:00 Pulse 71 10/30/24 16:00 Resp 33 H 10/30/24 16:00 BP 130/51 10/30/24 11:27 Pulse Ox 97 10/30/24 16:00 FiO2 100 10/30/24 16:00 Intake & Output 10/29/24 10/30/24 10/30/24 18:59 06:59 18:59 Intake Total 2401.231 0375.361 7957.030 Output Total 7420 52 7425 Balance -2218.769 1471.550 5649.970 Weight 184.8 kg 187 kg 187 kg Intake: IV 236 196 250 Piperacillin-Tazobactam 3 100 .375 gm In Sodium Chloride 0.9% 100 ml @ 25 mls/hr IVPB Q12H SUMEET Rx# :[id number] Pressure Bag 36 36 30 Sodium Chloride 0.9% 1, 200 160 120 000 ml @ 20 mls/hr IV . Q24H SUMEET Rx#:[id number] Intake, IV Titration 5454.975 1197.550 835.030 Amount Cisatracurium 200 mg In 143.118 168.519 Sodium Chloride 0.9% 180 ml @ 1 MCG/KG/MIN 8.709 mls/hr IV .[id number] SUMEET Rx #:[id number] DOPamine DRIP 800 mg In 104.351 63.679 9.867 Dextrose/Water 1 250ml. bag @ 1 MCG/KG/MIN 2.722 mls/hr IV .Q24H SUMEET Rx#: [id number] Piperacillin-Tazobactam 3 100 100 .375 gm In Sodium Chloride 0.9% 100 ml @ 25 mls/hr IVPB Q12H SUMEET Rx# :[id number] fentaNYL (PF) 2,500 mcg 500 209.5 245.304 In Sodium Chloride 0.9% 200 ml @ 2 MCG/KG/HR 29. 03 mls/hr IV .Q8H37M SUMEET Rx#:[id number] propofoL 1,000 mg In 587.762 644.371 166.044 Empty Bag 1 bag @ 15 MCG/ KG/MIN 13.064 mls/hr IV . Q7H40M SUMEET Rx#:[id number] propofoL 1,000 mg In 245.296 Empty Bag 1 bag @ 15 MCG/ KG/MIN 13.064 mls/hr IV . Q7H40M [facility] Rx#:[id number] Tube Feeding 240 220 200 Hemodialysis 400 400 Other 90 90 90 Output: Urine 20 52 25 Hemodialysis 3900 3900 Hemodialysis Net Amount 3500 3500 Other: Voiding Method Indwelling Catheter Indwelling Catheter Indwelling Catheter ABP, PAP, CO, CI - Last Documented Arterial Blood Pressure 130/52 - Exam GENERAL: Revealed a 55-year-old female intubated, mechanically ventilated, unresponsive to any stimuli except deep painful stimuli/needlesticks. Patient is on Nimbex, propofol, fentanyl patient is on hemodialysis today./ HEENT: Normocephalic, atraumatic ,Conjunctivae normal. Pupils are reactive to light NECK: Supple, No JVD. Endotracheal tube is intact, patient has a short obese neck, no neck masses no stridor. There is evidence of some conjunctival swelling CARDIOVASCULAR: Distant S1-S2, no S3 gallop, no murmur. RESPIRATION: Diminished breath sound bilaterally no rhonchi and wheezes noted today ABDOMEN: Morbidly obese, soft, nontender,obese, nondistended ,positive Bowel sounds. LEGS: Trace of bipedal edema, diminished distal pulses bilaterally. NERVOUS SYSTEM: unable to evaluate as patient sedated and intubated, paralyzed Skin: Warm and dry, no rash Psychiatric: Could not assess. Patient is sedated on propofol and on fentanyl, and Nimbex - Labs CBC & Chem 7: 10/30/24 05:24 10/30/24 05:24 Labs: Abnormal Lab Results - Last 24 Hours (Table) 10/29/24 10/29/24 10/29/24 Range/Units 17:37 20:16 23:36 Hgb (11.4-16.0) gm/dL RDW (11.5-15.5) % Lymphocytes # (1.0-4.8) k/uL ABG pCO2 (35-45) mmHg ABG pO2 (83-108) mmHg ABG HCO3 (21-25) mmol/L ABG Total CO2 (19-24) mmol/L ABG O2 Saturation (94-97) % Hemoglobin (11.4-16.0) gm/dL Sodium (137-145) mmol/L Chloride (98-107) mmol/L BUN (7-17) mg/dL Creatinine (0.52-1.04) mg/dL Glucose (74-99) mg/dL POC Glucose (mg/dL) 156 H 159 H 152 H (70-110) mg/dL Calcium (8.4-10.2) mg/dL 10/30/24 10/30/24 10/30/24 Range/Units 05:24 05:24 05:24 Hgb 10.7 L (11.4-16.0) gm/dL RDW 18.3 H (11.5-15.5) % Lymphocytes # 0.3 L (1.0-4.8) k/uL ABG pCO2 (35-45) mmHg ABG pO2 (83-108) mmHg ABG HCO3 (21-25) mmol/L ABG Total CO2 (19-24) mmol/L ABG O2 Saturation (94-97) % Hemoglobin (11.4-16.0) gm/dL Sodium 126 L (137-145) mmol/L Chloride 93 L (98-107) mmol/L BUN 57 H (7-17) mg/dL Creatinine 3.54 H (0.52-1.04) mg/dL Glucose 150 H (74-99) mg/dL POC Glucose (mg/dL) 158 H (70-110) mg/dL Calcium 7.6 L (8.4-10.2) mg/dL 10/30/24 10/30/24 10/30/24 Range/Units 05:30 06:55 12:01 Hgb (11.4-16.0) gm/dL RDW (11.5-15.5) % Lymphocytes # (1.0-4.8) k/uL ABG pCO2 46 H (35-45) mmHg ABG pO2 71 L (83-108) mmHg ABG HCO3 26 H (21-25) mmol/L ABG Total CO2 27 H (19-24) mmol/L ABG O2 Saturation 93.2 L (94-97) % Hemoglobin 10.9 L (11.4-16.0) gm/dL Sodium (137-145) mmol/L Chloride (98-107) mmol/L BUN (7-17) mg/dL Creatinine (0.52-1.04) mg/dL Glucose (74-99) mg/dL POC Glucose (mg/dL) 169 H 144 H (70-110) mg/dL Calcium (8.4-10.2) mg/dL Microbiology - Last 24 Hours (Table) 10/26/24 15:54 Blood Culture - Preliminary Blood Assessment and Plan Assessment: Impression: Acute on chronic hypoxic respiratory failure, patient is normally on 2 L nasal cannula at home. Acute hypercapnic respiratory failure Severe bradycardia with hypovolemic shock Acute kidney injury secondary to ATN, hemodialysis now. Severe acute hyperkalemia, multifactorial patient does have history of nonsteroidal anti-inflammatory drugs use and presented with bradycardia and hypotension and a picture of cardiogenic shock Shock liver, seems to be worse today compared to yesterday. Acute metabolic and respiratory acidosis as noted on ABG Recent history of knee surgery Recent urinary tract infection History of pulmonary hypertension History of alpha 1 antitrypsin deficiency History of nicotine dependence Benign essential hypertension Morbid obesity Degenerative joint disease Chronic peripheral neuropathy Chronic back pain History of migraine cephalgia History of depression History of pulmonary hypertension possible acute anoxic brain injury History of Pseudomonas in the sputum hence antibiotics were transitioned to Zosyn Recommendation: Continue ventilatory support, no changes made in her ventilator settings Unable to get a CT of the head and CT of the chest at this point Continue sedation and paralysis Continue hemodialysis GI and DVT prophylaxis Nutritional support/enteral feed Insulin including Levemir insulin and NovoLog insulin for hyperglycemia Bronchodilators for underlying COPD Continue Zosyn for Pseudomonas in the sputum, possible underlying pseudomonal pneumonia Epinephrine was discontinued, blood pressure seems to be holding Again mother updated on her critical condition Prognosis extremely poor and guarded Patient remains critically ill and prognosis is extremely poor Critical care time is over 30 minutes Time with Patient: Greater than 30
[2024-10-30 17:16] LABS: Glucose,Whole Blood 148 mg/dL (70-110)
[2024-10-30 23:27] LABS: Glucose,Whole Blood 151 mg/dL (70-110)
[2024-10-31 04:38] LABS: Anisocytosis Slight; HCT 31.8 % (34.0-46.0); HGB 10.2 gm/dL (11.4-16.0); Hypochromasia Moderate; MCH 26.8 pg (25.0-35.0); MCHC 32.2 g/dL (31.0-37.0); MCV 83.3 fL (80.0-100.0); Mean Platelet Volume 10.8; Microcytosis Slight; Platelet Count 146 k/uL (150-450); Poikilocytosis Slight; RBC 3.82 m/uL (3.80-5.40); RDW 18.4 % (11.5-15.5); WBC 11.4 k/uL (3.8-10.6)
[2024-10-31 04:51] LABS: African American GFR (CKD) 18 (>60 ml/min/1.73 sqM); Albumin 2.9 g/dL (3.5-5.0); Blood Urea Nitrogen 57 mg/dL (7-17); Chloride 93 mmol/L (98-107); Non-African American GFR(CKD) 16 (>60 ml/min/1.73 sqM); Sodium 126 mmol/L (137-145); Total Bilirubin 0.9 mg/dL (0.2-1.3)
[2024-10-31 05:17] LABS: AST 277 U/L (14-36); Alkaline Phosphatase 178 U/L (38-126); Anion Gap 10 mmol/L; Calcium 7.8 mg/dL (8.4-10.2); Carbon Dioxide 23 mmol/L (22-30); Glucose 141 mg/dL (74-99); Total Protein 5.7 g/dL (6.3-8.2)
[2024-10-31 05:43] LABS: ABG Base Excess -0.6 mmol/L; ABG HCO3 26 mmol/L (21-25); ABG Oxygen Saturation 90.6 % (94-97); ABG PCO2 49 mmHg (35-45); ABG PH 7.33 (7.35-7.45); ABG PO2 66 mmHg (83-108); ABG TCO2 27 mmol/L (19-24); Allen Test Performed? Yes
[2024-10-31 05:49] LABS: Potassium 4.8 mmol/L (3.5-5.1)
[2024-10-31 06:07] LABS: Glucose,Whole Blood 145 mg/dL (70-110)
[2024-10-31 06:10] LABS: ALT 2947 U/L (4-34)
--- NOTE | 2024-10-31 06:56 | XR ---
EXAMINATION TYPE: XR chest 1V portable DATE OF EXAM: 10/31/2024 COMPARISON: 10/30/2024 CLINICAL INDICATION: Female, 54 years old with history of Intubated; TECHNIQUE: Single frontal view of the chest is obtained. FINDINGS: The ET tube is 2.1 cm above the izabella. There is an NG tube within the stomach. There is a right-sided central venous catheter tip in the SVC/RA junction. There is a partially consolidative and interstitial infiltrate in the right mid and lower lung zone u nchanged from previous. Left lung base appears better aerated than on the prior study. There is no pneumothorax. No large pleural effusion. The osseous structures are intact. IMPRESSION: 1. ET tube 2.1 cm below the izabella. NG tube within the stomach. 2. No change in the partially consolidative and interstitial infiltrate in the right mid and lower shaka ng zone. 3. Improvement in the aeration of the left lung base with no definite retrocardiac infiltrate on this study. [facility], , 10/31/2024 6:53 AM
[2024-10-31] MEDS: ENOXAPARIN 40 MG/0.4 ML SYRINGE SQ SCH (11:24)
[2024-10-31 11:31] LABS: Glucose,Whole Blood 129 mg/dL (70-110)
[2024-10-31] MEDS: MIDODRINE 5 MG TAB PO SCH (11:37)
--- NOTE | 2024-10-31 12:22 | P.PN ---
Subjective Progress Note Date: 10/31/24 Patient is seen in follow-up for acute kidney injury. Started on hemodialysis October 26, 2024. Off IV fluids. Receiving tube feeds. Remains oliguric. Remains on 100% FiO2. Planning for HD today. Vital signs are stable. General: Resting in bed. HEENT: Intubated. LUNGS: Scattered rhonchi. HEART: Rate and Rhythm are regular. ABDOMEN: Obese. EXTREMITITES: 1+ edema. Objective - Vital Signs Vital signs: Vital Signs Temp 98.5 F 10/31/24 08:00 Pulse 76 10/31/24 09:39 Resp 33 H 10/31/24 09:00 BP 98/47 10/30/24 23:30 Pulse Ox 93 L 10/31/24 09:00 FiO2 100 10/31/24 08:44 Intake & Output 10/30/24 10/31/24 10/31/24 18:59 06:59 18:59 Intake Total 2169.426 1658.896 239.196 Output Total 7425 43 20 Balance -5255.574 1615.896 219.196 Weight 187 kg 187.7 kg Intake: IV 296 276 69 Piperacillin-Tazobactam 3 100 .375 gm In Sodium Chloride 0.9% 100 ml @ 25 mls/hr IVPB Q12H SUMEET Rx# :[id number] Pressure Bag 36 36 9 Sodium Chloride 0.9% 1, 160 240 60 000 ml @ 20 mls/hr IV . Q24H SUMEET Rx#:[id number] Intake, IV Titration 1706.099 8563.896 80.196 Amount Cisatracurium 200 mg In 168.519 200.000 Sodium Chloride 0.9% 180 ml @ 1 MCG/KG/MIN 8.709 mls/hr IV .[id number] SUMEET Rx #:[id number] DOPamine DRIP 800 mg In 9.867 17.216 Dextrose/Water 1 250ml. bag @ 1 MCG/KG/MIN 2.722 mls/hr IV .Q24H SUMEET Rx#: [id number] fentaNYL (PF) 2,500 mcg 466.900 250 In Sodium Chloride 0.9% 200 ml @ 2 MCG/KG/HR 29. 03 mls/hr IV .Q8H37M SUMEET Rx#:[id number] propofoL 1,000 mg In 166.044 Empty Bag 1 bag @ 15 MCG/ KG/MIN 13.064 mls/hr IV . Q7H40M [facility]MEET Rx#:[id number] propofoL 1,000 mg In 332.096 605.680 80.196 Empty Bag 1 bag @ 15 MCG/ KG/MIN 13.064 mls/hr IV . Q7H40M [facility] Rx#:[id number] Tube Feeding 240 220 60 Hemodialysis 400 Other 90 90 30 Output: Urine 25 43 20 Hemodialysis 3900 Hemodialysis Net Amount 3500 Other: Voiding Method Indwelling Catheter Indwelling Catheter Indwelling Catheter ABP, PAP, CO, CI - Last Documented Arterial Blood Pressure 125/54 - Labs CBC & Chem 7: 10/31/24 04:25 10/31/24 04:25 Labs: Abnormal Lab Results - Last 24 Hours (Table) 10/30/24 10/30/24 10/30/24 Range/Units 12:01 17:14 23:25 WBC (3.8-10.6) k/uL Hgb (11.4-16.0) gm/dL Hct (34.0-46.0) % RDW (11.5-15.5) % Plt Count (150-450) k/uL ABG pH (7.35-7.45) ABG pCO2 (35-45) mmHg ABG pO2 (83-108) mmHg ABG HCO3 (21-25) mmol/L ABG Total CO2 (19-24) mmol/L ABG O2 Saturation (94-97) % Hemoglobin (11.4-16.0) gm/dL Sodium (137-145) mmol/L Chloride (98-107) mmol/L BUN (7-17) mg/dL Creatinine (0.52-1.04) mg/dL Glucose (74-99) mg/dL POC Glucose (mg/dL) 144 H 148 H 151 H (70-110) mg/dL Calcium (8.4-10.2) mg/dL AST (14-36) U/L ALT (4-34) U/L Alkaline Phosphatase (38-126) U/L Total Protein (6.3-8.2) g/dL Albumin (3.5-5.0) g/dL 10/31/24 10/31/24 10/31/24 Range/Units 04:25 04:25 05:37 WBC 11.4 H (3.8-10.6) k/uL Hgb 10.2 L (11.4-16.0) gm/dL Hct 31.8 L (34.0-46.0) % RDW 18.4 H (11.5-15.5) % Plt Count 146 L (150-450) k/uL ABG pH 7.33 L (7.35-7.45) ABG pCO2 49 H (35-45) mmHg ABG pO2 66 L (83-108) mmHg ABG HCO3 26 H (21-25) mmol/L ABG Total CO2 27 H (19-24) mmol/L ABG O2 Saturation 90.6 L (94-97) % Hemoglobin 10.6 L (11.4-16.0) gm/dL Sodium 126 L (137-145) mmol/L Chloride 93 L (98-107) mmol/L BUN 57 H (7-17) mg/dL Creatinine 3.23 H (0.52-1.04) mg/dL Glucose 141 H (74-99) mg/dL POC Glucose (mg/dL) (70-110) mg/dL Calcium 7.8 L (8.4-10.2) mg/dL AST 277 H (14-36) U/L ALT 2947 H (4-34) U/L Alkaline Phosphatase 178 H (38-126) U/L Total Protein 5.7 L (6.3-8.2) g/dL Albumin 2.9 L (3.5-5.0) g/dL 10/31/24 Range/Units 06:06 WBC (3.8-10.6) k/uL Hgb (11.4-16.0) gm/dL Hct (34.0-46.0) % RDW (11.5-15.5) % Plt Count (150-450) k/uL ABG pH (7.35-7.45) ABG pCO2 (35-45) mmHg ABG pO2 (83-108) mmHg ABG HCO3 (21-25) mmol/L ABG Total CO2 (19-24) mmol/L ABG O2 Saturation (94-97) % Hemoglobin (11.4-16.0) gm/dL Sodium (137-145) mmol/L Chloride (98-107) mmol/L BUN (7-17) mg/dL Creatinine (0.52-1.04) mg/dL Glucose (74-99) mg/dL POC Glucose (mg/dL) 145 H (70-110) mg/dL Calcium (8.4-10.2) mg/dL AST (14-36) U/L ALT (4-34) U/L Alkaline Phosphatase (38-126) U/L Total Protein (6.3-8.2) g/dL Albumin (3.5-5.0) g/dL Assessment and Plan Assessment: 1. Acute kidney injury secondary to ATN secondary to bradycardia, hypotension further worsen with the use of NSAIDs and diuretics. Baseline creatinine 0.7- 0.8 and 3.31 on admission. Oliguric. Started on hemodialysis October 26, 2024 via femoral dialysis catheter. No hydronephrosis noted on kidney ultrasound. 2. Hyperkalemia secondary to acute kidney injury, acidosis, NSAIDs, potassium supplementation. Improved. 3. Bradycardia secondary to hyperkalemia. Improved. 4. Metabolic acidosis secondary to acute kidney injury. Status post bicarb drip. Improved. 5. Shock liver. 6. Recent right knee surgery with subsequent fall. Will need further intervention in the future. 7. Hyponatremia secondary to acute kidney injury, hypervolemic. Also receiving some IV meds with hypotonic fluids. 8. Acute hypoxic respiratory failure. Intubated. Plan: Continue with daily dialysis for now. Challenge ultrafiltration. Maintain tube feeds. Monitor for renal recovery. Wean FiO2 and vasopressors. Maintain midodrine. Preserved ejection fraction noted on echocardiogram. Avoid nephrotoxins. IV Lasix given October 27, 2024 with minimal response in urine output.
--- NOTE | 2024-10-31 13:10 | PN ---
PROGRESS NOTE HISTORY OF PRESENT ILLNESS: Kim is a 54-year-old lady, who is admitted to the ICU with vent requiring respiratory failure. She has morbid obesity, history of peripheral neuropathy, pulmonary hypertension. She had severe bradycardia on her initial presentation secondary to hyperkalemia that has since resolved. She had been dialyzed. She is not making any urine. PHYSICAL EXAMINATION: GENERAL: She is intubated, vented, sedated. VITAL SIGNS: Heart rate is 77 beats per minute, blood pressure is 127/54, respiratory rate 26. CHEST: Reveals good air entry bilaterally. I do not hear any crackles or rhonchi. HEART: Reveals first and second heart sounds. No gallop. ABDOMEN: Soft. EXTREMITIES: Reveals 1+ edema. Peripheral pulses are felt. Peripheral edema has improved significantly. LABORATORY DATA: Labs show a potassium of 4.8, BUN is 57, creatinine is 3.2, sodium is 126. Hemoglobin is 10.2. ASSESSMENT AND PLAN: 1. Vent requiring respiratory failure. 2. Bradycardia, secondary to hyperkalemia, renal failure, and hemodialysis. MMODL / IJN: [id number] /
--- NOTE | 2024-10-31 14:56 | P.PN ---
Subjective Progress Note Date: 10/31/24 Principal diagnosis: Acute on chronic hypoxic respiratory failure and acute hypercapnic respiratory failure with hypovolemic shock and severe bradycardia This is a 54-year-old female with history of multiple medical problems including COPD, chronic pain syndrome, dyslipidemia, bipolar disorder, hypertension, patient was brought into the ER yesterday mostly with change in mental status and according to family patient has been confused for the last 2 days, patient has been hallucinating and upon arrival to the ER she was noted to be severely bradycardic and hypotensive. Patient remained bradycardic, patient was seen by cardiology on consultation for her bradycardia, patient was taken to the cardiac Event Representative, her blood pressure was 120 on norepinephrine, decision was made to hold her pacemaker insertion. Previous cardiac workup from previous records has shown preserved systolic function and no documented ischemic heart disease. When labs were reviewed, patient was noted to have hyperkalemia and acute renal failure, shock liver profile, patient was intubated in the ER, she was eventually transferred to the ICU after she went to cardiac cath. But again pacemaker insertion was placed on hold. Patient is now intubated mechanically ventilated, she is on assist-control rate of 22 tidal volume 500 FiO2 100% and PEEP of 8 ABG showed a pO2 of 87 pCO2 53 pH of 7.14, her rate was increased to 26, patient received 1 amp of bicarb, and she was already on bicarb drip. Patient is on multiple drips including dopamine at 10 mcg/kg/min, propofol at 45 mg/kg/min Versed which I have discontinued 3 mg/h patient is also receiving epinephrine at 0.12 mcg/kg/min receiving 3 A of bicarb in D5W at 200 cc/h patient is hyperkalemic and follow-up sodium remains above 6, although the patient received the hyperkalemia protocol. Her initial potassium was 8.6 on her initial presentation. Patient already had a hemodialysis catheter placed by vascular surgery in the left groin, and she has a right IJ triple-lumen catheter. I went ahead and placed a right radial arterial line. Patient is scheduled to undergo hemodialysis today, patient is not responsive to any stimuli except deep painful stimuli noted while I was placing an arterial line, patient withdraws to painful stimuli/needlestick. Pupils are dilated and sluggishly reactive. Looking back at her history patient had total knee arthroplasty 3 months ago and she had a fall about a week ago may have sustained head injury however CT of the brain is pending patient is to be seen by neurology on consultation today. And she is being seen by many consultants including nephrology and cardiology. Overall picture is extremely poor and guarded. And the patient is critically ill. Blood sugars are running high as 336 liver enzymes are elevated including a bilirubin of 2.2 AST of 3715 ALT of 4016 and alkaline phosphatase of 155 Patient seen today on 10/27/2024, patient remains in the ICU, intubated and mecha nically ventilated sedated and paralyzed. Patient developed worsening pulmonary edema over the last 24 hours, hence she required higher FiO2 of 100% higher PEEP of 12 and she remains marginal as far as oxygenation is concerned. Patient is undergoing hemodialysis today no fluid was removed yesterday, and nephrology is planning to remove only 500 cc of fluid today. Patient remains on dopamine at 10 mcg/kg/min epinephrine at 0.02 mcg/kg/min Fentanyl at 2 mcg/kg/h propofol at 75 mcg/kg/min remains on Nimbex at 1 mcg/kg per minute and was supposed to have a CT of the brain yesterday, however the portion was relatively unstable could not have the CT of the brain done yesterday mostly because of arrhythmia and hypotension had to be brought back up to the ICU and she had to be paralyzed. Overall condition is not promising, actually her condition seems to be worse today compared to yesterday. Patient was seen by neurology on consultation still entertaining the possibility of anoxic brain injury due to severe hypoxia. The patient has anisocoria with right pupil larger than the left pupil full adequate neurological exam could not be fully done mostly because of the fact the patient is on Nimbex Fentanyl and propofol. Patient could not come off Nimbex mostly because could not be ventilated yesterday in spite of multiple sedatives including propofol and fentanyl. These were relatively high doses. She was very asynchronous with the ventilator, breathing over 40/min, had to be given Nimbex otherwise could not ventilate the patient. Today continues to have high peak airway pressure in the range of 40 high plateau pressures in the range of 34, and she has marginal oxygenation chest x-ray showed pulmonary edema underlying aspiration pneumonia is not entirely ruled out hence the patient remains on antibiotics empirically and she still receiving diuretics she is also on hemodialysis because she had complete renal shutdown on this admission. Her WBC count is 11.3 hemoglobin is 11.4 her ABG today showed a pO2 of 74 pCO2 72 pH of 7.26 basic metabolic profile showed potassium of 4.9 BUN of 82 creatinine 2.77 AST is 7474 ALT is 7846 worse today compared to yesterday. This is a picture of shock liver to mention the patient presented with acute tubular necrosis and acute kidney injury. Severe metabolic acidosis and severe hyperkalemia leading to bradycardia hypotension, cardiogram showed good LV function today, ejection fraction of 60 to 65% right-sided pressures are in the range of 66. Patient was seen today on 10/28/2024, remains in the ICU, remains intubated and mechanically ventilated. Patient is on assist-control rate of 3 0 tidal volume 400 FiO2 100% and PEEP of 15. However considering her relatively high peak airway pressure and plateau pressures I switched the patient to a pressure control mode of mechanical ventilation with PI of 23 TI 0.7 rate remains 33 and PEEP remains at 15. ABG earlier today showed a pO2 of 54 pCO2 50 pH of 7.35. Patient remains on Decadron remains on Zosyn, sputum is positive for Pseudomonas aeruginosa patient remains extremely oliguric 5 to 10 cc/h. He did not improve with Lasix yesterday. Remains on dialysis and she will have dialysis again today. Did not do a CT of the brain and could not do a CT of the chest mostly because of her instability. Recommending a venous Doppler to be done today. Time patient remains on Nimbex at 2 mcg/kg/min and dopamine 7.5 mcg/kg/min and I am cutting it down to 5 fentanyl at 2 mcg/kg/h propofol at 65 mcg/kg/min he is off epinephrine. Could use norepinephrine if necessary for low blood pressure. Right now she is only on dopamine which is to be tapered down to a renal perf usion dose if possible. This x-ray continues to show cardiomegaly and evidence of pulmonary edema, small bilateral pleural effusions and atelectasis. WBC count is 11.2 hemoglobin 11.9, sodium 124 potassium 6.6 enzymes remain elevated. Profile is abnormal with a BUN of 71 creatinine 3.20 patient is undergoing hemodialysis again today Seen today on 10/29/2024, patient remains in the ICU intubated mechanically ventilated sedated and paralyzed patient is on assist-control rate of 33 tidal volume 400 FiO2 100% and PEEP of 15 ABG showed a pO2 of 59 pCO2 51 pH of 7.32. Patient is having another hemodialysis today and the plan is to remove 2.5 L today. Patient remains on Nimbex at 2 mcg/kg/min and she also on vital HP at 20 cc/h dopamine at 2 mcg/kg/min Fentanyl at 2 mcg/kg/kg/h propofol at 65 mg/kg/min and IV fluid at KVO. Chest x-ray is basically about the same continues to show evidence of pulmonary edema and bilateral pleural effusion her labs showed low sodium of 125, bicarb is 24 BUN is 63 creatinine 3.50 liver enzymes are improving with ALT down to 6491, AST is down to 2071 venous Doppler of lower extremities could not be optimal because of her legs condition and swelling as w ell as body habitus, could not send the patient back down for CT angiogram of the chest and for CT of the head patient had some sort of head trauma, I am afraid to place patient empirically on heparin, and I am yet to stabilize the patient to have a CT of the head. Her clinical condition is extremely marginal at best, and I prefer not to send her down for CT of the chest and CT of the head at this point EEG did show evidence of moderate encephalopathy and I believe the patient must have sustained some significant anoxic brain injury Patient was seen today on 10/30/2024, remains in the ICU, intubated and mechanically ventilated. On assist-control rate of 33 tidal volume 400 FiO2 100% PEEP of 15 ABG showed a pO2 of 71 pCO2 46 pH of 7.36. Patient is having more hemodialysis today, and the plan is to remove 3 L of fluids. Patient remains on Demadex at 1 mcg/kg/min, dopamine at 0.5 mcg/kg/min Fentanyl at 2 mg/kg/h propofol 65 mcg/kg/min. Patient remains empirically on Zosyn much of major change noted in the last 24 hours, patient desaturates easily as soon as she goes down to flat position. Hence I am reluctant to send the patient down for CT of the brain and CT of the chest. Mother is at bedside and she was updated on her condition WBC count is 7.7 hemoglobin 10.7 sodium is 126 potassium 4.9 BUN is 57 creatinine 3.54 chest x-ray continues to show pleural effusions and pulmonary edema Patient was seen today on 10/31/2024, patient remains in the ICU, intubated and mechanically ventilated, she is on assist-control rate of 33 tidal volume 400 FiO2 100% and PEEP of 15 ABG remains marginal with a pCO2 of 66 pCO2 50 pH of 7.33 vu on Nimbex at 2 mcg/kg/min dopamine at 1 mcg/kg/min propofol at 65 mg/kg/min IV fluids at KVO vital HP at 20 patient remains on Zosyn for positive Pseudomonas in the sputum. Remains on Lovenox. Patient is also on fentanyl at 2 mcg/kg/h. X-ray continues show evidence of pulmonary edema, her overall clinical condition remains very poor, remains relatively unstable and she could not lay flat to have CT of the brain and CT angiogram of the chest. Undergoing daily hemodialysis. Chest x-ray is not showing any significant improvement in spite of daily dialysis. Count is 11.4 hemoglobin 10.2 sodium remains low at 126 platelets 57 creatinine 3.23, bicarb is 23 her enzymes are improving AST down to 77-77 and ALT is 2947 alkaline phosphatase 178 albumin is 2.9 Objective - Vital Signs Vital signs: Vital Signs Temp 98.7 F 10/31/24 12:00 Pulse 72 10/31/24 14:00 Resp 33 H 10/31/24 14:00 BP 98/47 10/30/24 23:30 Pulse Ox 90 L 10/31/24 14:00 FiO2 100 10/31/24 12:03 Intake & Output 10/30/24 10/31/24 10/31/24 18:59 06:59 18:59 Intake Total 2169.426 1594.648 6944.162 Output Total 7425 43 45 Balance -5255.574 1508.751 9712.162 Weight 187 kg 187.7 kg Intake: IV 296 276 284 Piperacillin-Tazobactam 3 100 100 .375 gm In Sodium Chloride 0.9% 100 ml @ 25 mls/hr IVPB Q12H SUMEET Rx# :[id number] Pressure Bag 36 36 24 Sodium Chloride 0.9% 1, 160 240 160 000 ml @ 20 mls/hr IV . Q24H SUMEET Rx#:[id number] Intake, IV Titration 3299.238 7112.896 548.162 Amount Cisatracurium 200 mg In 168.519 200.000 Sodium Chloride 0.9% 180 ml @ 1 MCG/KG/MIN 8.709 mls/hr IV .[id number] SUMEET Rx #:[id number] DOPamine DRIP 800 mg In 9.867 17.216 17.966 Dextrose/Water 1 250ml. bag @ 1 MCG/KG/MIN 2.722 mls/hr IV .Q24H SUMEET Rx#: [id number] fentaNYL (PF) 2,500 mcg 466.900 250 250 In Sodium Chloride 0.9% 200 ml @ 2 MCG/KG/HR 29. 03 mls/hr IV .Q8H37M SUMEET Rx#:[id number] propofoL 1,000 mg In 166.044 Empty Bag 1 bag @ 15 MCG/ KG/MIN 13.064 mls/hr IV . Q7H40M SUMEET Rx#:[id number] propofoL 1,000 mg In 332.096 605.680 280.196 Empty Bag 1 bag @ 15 MCG/ KG/MIN 13.064 mls/hr IV . Q7H40M SUMEET Rx#:[id number] Tube Feeding 240 220 160 Hemodialysis 400 Other 90 90 60 Output: Urine 25 43 45 Hemodialysis 3900 Hemodialysis Net Amount 3500 Other: Voiding Method Indwelling Catheter Indwelling Catheter Indwelling Catheter ABP, PAP, CO, CI - Last Documented Arterial Blood Pressure 133/58 - Exam GENERAL: Revealed a 55-year-old female intubated, mechanically ventilated, unresponsive to any stimuli except deep painful stimuli/needlesticks. Patient is on Nimbex, propofol, fentanyl , dopamine HEENT: Normocephalic, atraumatic , sub conjunctival swelling is noted pupils are reactive to light NECK: Supple, No JVD. Endotracheal tube is intact, patient has a short obese neck, no neck masses no stridor. There is evidence of some conjunctival swelling CARDIOVASCULAR: Distant S1-S2, no S3 gallop, no murmur. RESPIRATION: Diminished breath sound bilaterally no rhonchi and wheezes noted today ABDOMEN: Morbidly obese, soft, nontender,obese, nondistended ,positive Bowel sounds. LEGS: Trace of bipedal edema, diminished distal pulses bilaterally. NERVOUS SYSTEM: unable to evaluate as patient sedated and intubated, paralyzed Skin: Warm and dry, no rash Psychiatric: Could not assess. Patient is sedated on propofol and on fentanyl, and Nimbex - Labs CBC & Chem 7: 10/31/24 04:25 10/31/24 04:25 Labs: Abnormal Lab Results - Last 24 Hours (Table) 10/30/24 10/30/24 10/31/24 Range/Units 17:14 23:25 04:25 WBC 11.4 H (3.8-10.6) k/uL Hgb 10.2 L (11.4-16.0) gm/dL Hct 31.8 L (34.0-46.0) % RDW 18.4 H (11.5-15.5) % Plt Count 146 L (150-450) k/uL ABG pH (7.35-7.45) ABG pCO2 (35-45) mmHg ABG pO2 (83-108) mmHg ABG HCO3 (21-25) mmol/L ABG Total CO2 (19-24) mmol/L ABG O2 Saturation (94-97) % Hemoglobin (11.4-16.0) gm/dL Sodium (137-145) mmol/L Chloride (98-107) mmol/L BUN (7-17) mg/dL Creatinine (0.52-1.04) mg/dL Glucose (74-99) mg/dL POC Glucose (mg/dL) 148 H 151 H (70-110) mg/dL Calcium (8.4-10.2) mg/dL AST (14-36) U/L ALT (4-34) U/L Alkaline Phosphatase (38-126) U/L Total Protein (6.3-8.2) g/dL Albumin (3.5-5.0) g/dL 10/31/24 10/31/24 10/31/24 Range/Units 04:25 05:37 06:06 WBC (3.8-10.6) k/uL Hgb (11.4-16.0) gm/dL Hct (34.0-46.0) % RDW (11.5-15.5) % Plt Count (150-450) k/uL ABG pH 7.33 L (7.35-7.45) ABG pCO2 49 H (35-45) mmHg ABG pO2 66 L (83-108) mmHg ABG HCO3 26 H (21-25) mmol/L ABG Total CO2 27 H (19-24) mmol/L ABG O2 Saturation 90.6 L (94-97) % Hemoglobin 10.6 L (11.4-16.0) gm/dL Sodium 126 L (137-145) mmol/L Chloride 93 L (98-107) mmol/L BUN 57 H (7-17) mg/dL Creatinine 3.23 H (0.52-1.04) mg/dL Glucose 141 H (74-99) mg/dL POC Glucose (mg/dL) 145 H (70-110) mg/dL Calcium 7.8 L (8.4-10.2) mg/dL AST 277 H (14-36) U/L ALT 2947 H (4-34) U/L Alkaline Phosphatase 178 H (38-126) U/L Total Protein 5.7 L (6.3-8.2) g/dL Albumin 2.9 L (3.5-5.0) g/dL 10/31/24 Range/Units 11:29 WBC (3.8-10.6) k/uL Hgb (11.4-16.0) gm/dL Hct (34.0-46.0) % RDW (11.5-15.5) % Plt Count (150-450) k/uL ABG pH (7.35-7.45) ABG pCO2 (35-45) mmHg ABG pO2 (83-108) mmHg ABG HCO3 (21-25) mmol/L ABG Total CO2 (19-24) mmol/L ABG O2 Saturation (94-97) % Hemoglobin (11.4-16.0) gm/dL Sodium (137-145) mmol/L Chloride (98-107) mmol/L BUN (7-17) mg/dL Creatinine (0.52-1.04) mg/dL Glucose (74-99) mg/dL POC Glucose (mg/dL) 129 H (70-110) mg/dL Calcium (8.4-10.2) mg/dL AST (14-36) U/L ALT (4-34) U/L Alkaline Phosphatase (38-126) U/L Total Protein (6.3-8.2) g/dL Albumin (3.5-5.0) g/dL Assessment and Plan Assessment: Impression: Acute on chronic hypoxic respiratory failure, patient is normally on 2 L nasal cannula at home. Acute hypercapnic respiratory failure Severe bradycardia with hypovolemic shock Acute kidney injury secondary to ATN, on hemodialysis since admission Severe acute hyperkalemia, multifactorial patient does have history of nonsteroidal anti-inflammatory drugs use and presented with bradycardia and hypotension and a picture of cardiogenic shock Shock liver, improving but not resolved Acute metabolic and respiratory acidosis as noted on ABG Recent history of knee surgery Recent urinary tract infection History of pulmonary hypertension History of alpha 1 antitrypsin deficiency History of nicotine dependence Benign essential hypertension Morbid obesity Degenerative joint disease Chronic peripheral neuropathy Chronic back pain History of migraine cephalgia History of depression History of pulmonary hypertension possible acute anoxic brain injury History of Pseudomonas in the sputum, on Zosyn Recommendation: Continue ventilatory support, no changes made in her ventilator settings Still unable to send the patient down for diagnostic procedures, patient cannot lay flat for more than few seconds otherwise she desaturated significantly Continue sedation and paralysis Continue hemodialysis GI and DVT prophylaxis Continue enteral feeding/nutritional support Continue insulin Continue bronchodilator Continue Zosyn for Pseudomonas in the sputum Continue renal perfusion dose dopamine Mother is at bedside and she was updated on her condition very well aware of her poor prognosis Prognosis extremely poor and guarded Patient remains critically ill and prognosis is extremely poor Critical care time is over 30 minutes Time with Patient: Greater than 30
[2024-10-31] MEDS: ALTEPLASE 2 MG VIAL (CATHFLO) IV STA (17:32)
[2024-10-31 17:42] LABS: Glucose,Whole Blood 113 mg/dL (70-110)
[2024-10-31 23:17] LABS: Glucose,Whole Blood 122 mg/dL (70-110)
[2024-10-31] MEDS: MIDAZOLAM HCL 50 MG in SODIUM CHLORIDE 0.9% 40 ML IV SCH (23:31)
[2024-11-01 04:32] LABS: Anisocytosis Slight; HCT 34.5 % (34.0-46.0); HGB 10.6 gm/dL (11.4-16.0); Hypochromasia Moderate; MCH 25.7 pg (25.0-35.0); MCHC 30.7 g/dL (31.0-37.0); MCV 83.8 fL (80.0-100.0); Mean Platelet Volume 10.2; Microcytosis Slight; Platelet Count 175 k/uL (150-450); RBC 4.12 m/uL (3.80-5.40); RDW 18.4 % (11.5-15.5); WBC 21.1 k/uL (3.8-10.6)
[2024-11-01 04:40] LABS: AST 112 U/L (14-36); Albumin 3.1 g/dL (3.5-5.0); Alkaline Phosphatase 159 U/L (38-126); Anion Gap 10 mmol/L; Blood Urea Nitrogen 49 mg/dL (7-17); Calcium 7.9 mg/dL (8.4-10.2); Carbon Dioxide 23 mmol/L (22-30); Chloride 94 mmol/L (98-107); Glucose 123 mg/dL (74-99); Magnesium 2.1 mg/dL (1.6-2.3); Potassium 4.8 mmol/L (3.5-5.1); Sodium 127 mmol/L (137-145); Total Bilirubin 0.9 mg/dL (0.2-1.3); Total Protein 5.8 g/dL (6.3-8.2)
[2024-11-01 04:46] LABS: African American GFR (CKD) 20 (>60 ml/min/1.73 sqM); Non-African American GFR(CKD) 18 (>60 ml/min/1.73 sqM)
[2024-11-01 04:51] LABS: ALT 1975 U/L (4-34)
[2024-11-01 05:05] LABS: Glucose,Whole Blood 124 mg/dL (70-110)
[2024-11-01 05:43] LABS: ABG Base Excess -0.7 mmol/L; ABG HCO3 26 mmol/L (21-25); ABG Oxygen Saturation 87.7 % (94-97); ABG PCO2 50 mmHg (35-45); ABG PH 7.32 (7.35-7.45); ABG TCO2 27 mmol/L (19-24); Allen Test Performed? Yes
[2024-11-01 05:45] LABS: ABG PO2 59 mmHg (83-108)
--- NOTE | 2024-11-01 07:03 | XR ---
EXAMINATION TYPE: XR chest 1V portable DATE OF EXAM: 11/01/2024 COMPARISON: 10/31/2024 CLINICAL INDICATION: Female, 54 years old with history of Intubated; TECHNIQUE: Single frontal view of the chest is obtained. FINDINGS: ET tube is 2.3 cm above the izabella. There is an NG tube within the stomach.. There is no change in the right jugular central venous catheter tip which is in the SVC/RA junction. There is no change in the right perihilar opacity and right pleural effusion. There is no change in r etrocardiac opacity likely a combination of pleural fluid and atelectasis or pneumonia. There is no pneumothorax. The osseous structures are intact. IMPRESSION: 1. ET tube 2.2 cm above the izabella. 2. No significant interval change in the bilateral cardiopulmonary disease as described above. [facility], Workstation: [id number] 11/01/2024 7:01 AM
--- NOTE | 2024-11-01 09:07 | P.PN ---
Subjective Progress Note Date: 10/31/24 This is a 54-year-old female with past medical history significant for recent knee surgery proximately within the last 3 months with fall postoperatively 1 week ago, osteoarthritis, treated for UTI outpatient last week with Macrobid, COPD, migraines, hypertension, osteoarthritis, morbid obesity, sleep apnea, anxiety, depression, nicotine dependence and multiple other medical issues brought into the ER via EMS with reports of confusion, hallucinations, hypoxia, hypotension. Family reports patient nauseated and dizzy since Saturday night. on EMS arrival, reported systolic blood pressure of 80s, O2 sats of 70% on room air, placed on nonrebreather, EKG reported severe bradycardia with heart rates in the 20s and 30s. ER reports ,on arrival patient was alert and oriented to person and place, reported she had taken an additional [place] as well as an additional Flexeril for knee pain. Creatinine 3.24 on admission, currently at 3.3, baseline 0.7. Hyperkalemic cocktail administered for potassium at 8.6 , currently down to 6.3. EKG reported wide-complex bradycardia, junctional. ABGs reported pH of 7.14, pCO2 53, pO2 87, bicarb 18, total CO2 20 O2 sat 94 with a base excess of -11.1 on 70% FiO2. patient was intubated, taken to the Manipulator Operator for transvenous pacer, but spontaneously converted to sinus rhythm. Currently ventilator dependent with FiO2 100%/+8 with PEEP. Maintained on epinephrine and dopamine. Continues on bicarb drip. chest x-ray reported cardiomegaly, worsening pulmonary edema versus massive pneumonia ,antibiotics initiated. Hemoglobin A1c 6.0. T. bili 2.2, AST 3715, ALT 4016, alk phos 155. Hepatitis panel in progress. troponin negative x 1. TSH 9.660, free T4 1.35. 10/27/2024 Vent dependent .hemodialysis initiated yesterday. Maintained on bicarb drip, acidosis improving, bicarb 32, discontinued. Continues on dopamine and epinephrine drips echo reporting normal LV function, RVSP 66. Chest x-ray reporting persistent moderate large amount airspace opacities throughout both lungs more on the right, similar. 10/28/2024 Vent dependent, yesterday vent settings of 100% FiO2 +12 of PEEP; today FiO2 100%/+15 of PEEP on pressure control. Lasix attempted yesterday, no improvement. Chest x-ray reporting cardiomegaly, ongoing interstitial and patchy opacities, continue small effusions with adjacent atelectasis and/or consolidation. Received hemodialysis yesterday and today. Renal function improving, bicarb 28, BUN 47, creatinine 2.51. remains on Nimbex, diprovan, dopamine and fentanyl drips. Calcium 7.5, received calcium gluconate. Worsening LFTs. Maintained on Zosyn, Decadron, sputum culture reporting Pseudomonas aeruginosa Tmax 99, WBC 11.2. Venous Doppler pending. 10/29/2024 ventilator dependent, maintained on 100% FiO2/+15 PEEP. Continues on Nimbex ,diprovan ,fentanyl, dopamine drips. Midodrine added to med regimen. Continues on Zosyn, nebulized bronchodilators, dexamethasone. Blood sugars better controlled.Afebrile, normal WBC. HD today. LFTs trending down. Albumin 2.9. 10/30/2024 unstable to travel off the floor for further imaging/studies. Remains vent dependent with FiO2 100%/+15 PEEP. Maintained on diprovan, Nimbex, dopamine, fentanyl drips.EEG reported abnormal, background slowing, moderate encephalopathy ; diffuse suppression likely due to medication -propofol .continues on daily hemodialysis. Continues on Zosyn for sputum positive with Pseudomonas aeruginosa. 10/31/2024 Patient evaluated today in the ICU remains on the mechanical ventilator with FiO2 of 100%/PEEP of 15. Chest xray today reveals partially consolidative and interstitial infiltrate in the right mid and lower lung zone. Improvement in aeration of the left lung base with no definite retrocardiac infiltrate on this study. Patient continues on Dopamine infusion and has been started on hemodialysis and will be undergoing hemodialysis again today. She is not responding to painful stimuli and pupils are minimally reactive. Plan is to wean off the sedation this afternoon in order to undergo a thurough neurological evaluation. Patient has been unable to tolerate lying flat for greater than 10 minutes as she desaturates quickly for this reason she is unable to undergo CT of the brain or CT of the chest/abdomen/pelvis. Patient is currently on precedex, propofol. She has been weaned off pressor support. Remains on IV zosyn. Labs today reveal a sodium level of 126, potassium 4.8, BUN of 57, creatinine of 3.23. LFTs remain elevated although slightly decreased. Unable to complete a review of systems at this time patient is sedated and on the mechanical ventilator. All inpatient medications were reviewed and appropriate changes in these medications as dictated in the interval history and assessment and plan. PHYSICAL EXAMINATION: GENERAL: The patient remains on the ventilator. not in any acute distress. Well developed, well nourished. Morbidly Obese HEENT: Pupils are round and equally reacting to light. EOMI. No scleral icterus. No conjunctival pallor. Normocephalic, atraumatic. No pharyngeal erythema. No thyromegaly. CARDIOVASCULAR: S1 and S2 present. No murmurs, rubs, or gallops. PULMONARY: Chest is clear to auscultation, no wheezing or crackles. ABDOMEN: Soft, nontender, nondistended, normoactive bowel sounds. No palpable organomegaly. MUSCULOSKELETAL: No joint swelling or deformity. EXTREMITIES: No cyanosis, clubbing, or pedal edema. NEUROLOGICAL: Unable to assess pupils are sluggish SKIN: No rashes. Assessment and plan Bradycardia, severe, currently sinus unable to undergo pacemaker insertion Acute on chronic hypoxic respiratory failure, wears 2 L nasal cannula at home, mechanical ventilator dependent Acute renal failure secondary to ATN, related to all the above, requiring emergent hemodialysis Hyperkalemia secondary to NSAIDs, and renal failure Hypotension hypovolemic shock maintained on dopamine, status post epinephrine Sputum positive with Pseudomonas Hyponatremia secondary to the above, hypervolemic Shock liver Metabolic acidosis, maintained on bicarb drip Altered mental status, secondary to hypoxic and metabolic encephalopathy Recent knee surgery, status post fall postoperative Recent UTI, treated outpatient with Macrobid last week Alpha-1 antitrypsin deficiency, history of Obstructive sleep apnea, wears CPAP at night History of pulmonary hypertension Ongoing nicotine dependence, marijuana edibles, and history of vaping Hypertension Hyperlipidemia Osteoarthritis Morbid obesity, BMI 55 Anxiety/Depression Chronic peripheral neuropathy Chronic back pain History of Migraines, chronic GI prophylaxis DVT prophylaxis Full code Patient remains intubated and sedated on the mechanical ventilator in the intensive care unit Patient continues on IV Zosyn Plan is for a sedation holiday to fully assess neurological status Continue IV dopamine Continue dialysis per nephrology Monitor electrolytes and renal function The impression and plan of care has been dictated by Kathy Burkett Nurse Practitioner as directed. Dr. David MD I have performed a history and physical examination and medical decision making of this patient, discussed the same with the dictator, and agree with the dictators assessment and plan as written, documented as a scribe. Based on total visit time, I have performed more than 50% of this visit. Objective - Vital Signs Vital signs: Vital Signs Temp 98.2 F 11/01/24 04:00 Pulse 76 11/01/24 07:30 Resp 33 H 11/01/24 07:30 BP 89/39 11/01/24 02:45 Pulse Ox 83 L 11/01/24 07:30 FiO2 100 11/01/24 04:32 Intake & Output 10/31/24 11/01/24 11/01/24 18:59 06:59 18:59 Intake Total 2130.584 1794.201 23 Output Total 6560 15 0 Balance -4429.416 1779.201 23 Weight 188 kg Intake: IV 376 336 23 Piperacillin-Tazobactam 3 100 100 .375 gm In Sodium Chloride 0.9% 100 ml @ 25 mls/hr IVPB Q12H [facility] Rx# :[id number] Pressure Bag 36 36 3 Sodium Chloride 0.9% 1, 240 200 20 000 ml @ 20 mls/hr IV . Q24H [facility] Rx#:[id number] Intake, IV Titration 861.898 2284.201 Amount Cisatracurium 200 mg In 200 39.481 Sodium Chloride 0.9% 180 ml @ 1 MCG/KG/MIN 8.709 mls/hr IV .[id number] [facility] Rx #:[id number] DOPamine DRIP 800 mg In 17.966 26.083 Dextrose/Water 1 250ml. bag @ 1 MCG/KG/MIN 2.722 mls/hr IV .Q24H [facility] Rx#: [id number] fentaNYL (PF) 2,500 mcg 250 466.757 In Sodium Chloride 0.9% 200 ml @ 2 MCG/KG/HR 29. 03 mls/hr IV .Q8H37M [facility] Rx#:[id number] propofoL 1,000 mg In 456.618 635.880 Empty Bag 1 bag @ 15 MCG/ KG/MIN 13.064 mls/hr IV . Q7H40M [facility] Rx#:[id number] Tube Feeding 240 200 Hemodialysis 500 Other 90 90 Output: Urine 60 15 0 Hemodialysis 3500 Hemodialysis Net Amount 3000 Other: Voiding Method Indwelling Catheter Indwelling Catheter ABP, PAP, CO, CI - Last Documented Arterial Blood Pressure 128/56 - Labs CBC & Chem 7: 11/01/24 04:16 11/01/24 04:16 Labs: Abnormal Lab Results - Last 24 Hours (Table) 10/31/24 10/31/24 10/31/24 Range/Units 11:29 17:41 23:15 WBC (3.8-10.6) k/uL Hgb (11.4-16.0) gm/dL MCHC (31.0-37.0) g/dL RDW (11.5-15.5) % ABG pH (7.35-7.45) ABG pCO2 (35-45) mmHg ABG pO2 (83-108) mmHg ABG HCO3 (21-25) mmol/L ABG Total CO2 (19-24) mmol/L ABG O2 Saturation (94-97) % Hemoglobin (11.4-16.0) gm/dL Sodium (137-145) mmol/L Chloride (98-107) mmol/L BUN (7-17) mg/dL Creatinine (0.52-1.04) mg/dL Glucose (74-99) mg/dL POC Glucose (mg/dL) 129 H 113 H 122 H (70-110) mg/dL Calcium (8.4-10.2) mg/dL AST (14-36) U/L ALT (4-34) U/L Alkaline Phosphatase (38-126) U/L Total Protein (6.3-8.2) g/dL Albumin (3.5-5.0) g/dL 11/01/24 11/01/24 11/01/24 Range/Units 04:16 04:16 05:02 WBC 21.1 H (3.8-10.6) k/uL Hgb 10.6 L (11.4-16.0) gm/dL MCHC 30.7 L (31.0-37.0) g/dL RDW 18.4 H (11.5-15.5) % ABG pH (7.35-7.45) ABG pCO2 (35-45) mmHg ABG pO2 (83-108) mmHg ABG HCO3 (21-25) mmol/L ABG Total CO2 (19-24) mmol/L ABG O2 Saturation (94-97) % Hemoglobin (11.4-16.0) gm/dL Sodium 127 L (137-145) mmol/L Chloride 94 L (98-107) mmol/L BUN 49 H (7-17) mg/dL Creatinine 2.93 H (0.52-1.04) mg/dL Glucose 123 H (74-99) mg/dL POC Glucose (mg/dL) 124 H (70-110) mg/dL Calcium 7.9 L (8.4-10.2) mg/dL AST 112 H (14-36) U/L ALT 1975 H (4-34) U/L Alkaline Phosphatase 159 H (38-126) U/L Total Protein 5.8 L (6.3-8.2) g/dL Albumin 3.1 L (3.5-5.0) g/dL 11/01/24 Range/Units 05:36 WBC (3.8-10.6) k/uL Hgb (11.4-16.0) gm/dL MCHC (31.0-37.0) g/dL RDW (11.5-15.5) % ABG pH 7.32 L (7.35-7.45) ABG pCO2 50 H (35-45) mmHg ABG pO2 59 L* (83-108) mmHg ABG HCO3 26 H (21-25) mmol/L ABG Total CO2 27 H (19-24) mmol/L ABG O2 Saturation 87.7 L (94-97) % Hemoglobin 11.0 L (11.4-16.0) gm/dL Sodium (137-145) mmol/L Chloride (98-107) mmol/L BUN (7-17) mg/dL Creatinine (0.52-1.04) mg/dL Glucose (74-99) mg/dL POC Glucose (mg/dL) (70-110) mg/dL Calcium (8.4-10.2) mg/dL AST (14-36) U/L ALT (4-34) U/L Alkaline Phosphatase (38-126) U/L Total Protein (6.3-8.2) g/dL Albumin (3.5-5.0) g/dL Microbiology - Last 24 Hours (Table) 12/02/24 15:54 Blood Culture - Final Blood Assessment and Plan Time with Patient: Greater than 30
--- NOTE | 2024-11-01 11:30 | P.PN ---
Subjective Progress Note Date: 11/01/24 Patient is seen in follow-up for acute kidney injury. Started on hemodialysis October 26, 2024. Off IV fluids. Receiving tube feeds. Remains oliguric. Remains on 100% FiO2. Planning for HD tomorrow. Family at bedside, all questions answered. Vital signs are stable. General: Resting in bed. HEENT: Intubated. LUNGS: Scattered rhonchi. HEART: Rate and Rhythm are regular. ABDOMEN: Obese. EXTREMITITES: 1+ edema. Objective - Vital Signs Vital signs: Vital Signs Temp 98.2 F 11/01/24 04:00 Pulse 77 11/01/24 08:15 Resp 33 H 11/01/24 08:15 BP 89/39 11/01/24 02:45 Pulse Ox 83 L 11/01/24 08:15 FiO2 100 11/01/24 08:00 Intake & Output 10/31/24 11/01/24 11/01/24 18:59 06:59 18:59 Intake Total 2130.584 1794.201 196 Output Total 6560 15 10 Balance -4429.416 1779.201 186 Weight 188 kg Intake: IV 376 336 46 Piperacillin-Tazobactam 3 100 100 .375 gm In Sodium Chloride 0.9% 100 ml @ 25 mls/hr IVPB Q12H SUMEET Rx# :[id number] Pressure Bag 36 36 6 Sodium Chloride 0.9% 1, 240 200 40 000 ml @ 20 mls/hr IV . Q24H [facility]ET Rx#:[id number] Intake, IV Titration 817.745 6811.201 100 Amount Cisatracurium 200 mg In 200 39.481 Sodium Chloride 0.9% 180 ml @ 1 MCG/KG/MIN 8.709 mls/hr IV .[id number] SUMEET Rx #:[id number] DOPamine DRIP 800 mg In 17.966 26.083 Dextrose/Water 1 250ml. bag @ 1 MCG/KG/MIN 2.722 mls/hr IV .Q24H SUMEET Rx#: [id number] fentaNYL (PF) 2,500 mcg 250 466.757 In Sodium Chloride 0.9% 200 ml @ 2 MCG/KG/HR 29. 03 mls/hr IV .Q8H37M [facility]MEET Rx#:[id number] propofoL 1,000 mg In 456.618 635.880 100 Empty Bag 1 bag @ 15 MCG/ KG/MIN 13.064 mls/hr IV . Q7H40M [facility] Rx#:[id number] Tube Feeding 240 200 20 Hemodialysis 500 Other 90 90 30 Output: Urine 60 15 10 Hemodialysis 3500 Hemodialysis Net Amount 3000 Other: Voiding Method Indwelling Catheter Indwelling Catheter Indwelling Catheter ABP, PAP, CO, CI - Last Documented Arterial Blood Pressure 122/54 - Labs CBC & Chem 7: 11/01/24 04:16 11/01/24 04:16 Labs: Abnormal Lab Results - Last 24 Hours (Table) 10/31/24 10/31/24 10/31/24 Range/Units 11:29 17:41 23:15 WBC (3.8-10.6) k/uL Hgb (11.4-16.0) gm/dL MCHC (31.0-37.0) g/dL RDW (11.5-15.5) % ABG pH (7.35-7.45) ABG pCO2 (35-45) mmHg ABG pO2 (83-108) mmHg ABG HCO3 (21-25) mmol/L ABG Total CO2 (19-24) mmol/L ABG O2 Saturation (94-97) % Hemoglobin (11.4-16.0) gm/dL Sodium (137-145) mmol/L Chloride (98-107) mmol/L BUN (7-17) mg/dL Creatinine (0.52-1.04) mg/dL Glucose (74-99) mg/dL POC Glucose (mg/dL) 129 H 113 H 122 H (70-110) mg/dL Calcium (8.4-10.2) mg/dL AST (14-36) U/L ALT (4-34) U/L Alkaline Phosphatase (38-126) U/L Total Protein (6.3-8.2) g/dL Albumin (3.5-5.0) g/dL 11/01/24 11/01/24 11/01/24 Range/Units 04:16 04:16 05:02 WBC 21.1 H (3.8-10.6) k/uL Hgb 10.6 L (11.4-16.0) gm/dL MCHC 30.7 L (31.0-37.0) g/dL RDW 18.4 H (11.5-15.5) % ABG pH (7.35-7.45) ABG pCO2 (35-45) mmHg ABG pO2 (83-108) mmHg ABG HCO3 (21-25) mmol/L ABG Total CO2 (19-24) mmol/L ABG O2 Saturation (94-97) % Hemoglobin (11.4-16.0) gm/dL Sodium 127 L (137-145) mmol/L Chloride 94 L (98-107) mmol/L BUN 49 H (7-17) mg/dL Creatinine 2.93 H (0.52-1.04) mg/dL Glucose 123 H (74-99) mg/dL POC Glucose (mg/dL) 124 H (70-110) mg/dL Calcium 7.9 L (8.4-10.2) mg/dL AST 112 H (14-36) U/L ALT 1975 H (4-34) U/L Alkaline Phosphatase 159 H (38-126) U/L Total Protein 5.8 L (6.3-8.2) g/dL Albumin 3.1 L (3.5-5.0) g/dL 11/01/24 Range/Units 05:36 WBC (3.8-10.6) k/uL Hgb (11.4-16.0) gm/dL MCHC (31.0-37.0) g/dL RDW (11.5-15.5) % ABG pH 7.32 L (7.35-7.45) ABG pCO2 50 H (35-45) mmHg ABG pO2 59 L* (83-108) mmHg ABG HCO3 26 H (21-25) mmol/L ABG Total CO2 27 H (19-24) mmol/L ABG O2 Saturation 87.7 L (94-97) % Hemoglobin 11.0 L (11.4-16.0) gm/dL Sodium (137-145) mmol/L Chloride (98-107) mmol/L BUN (7-17) mg/dL Creatinine (0.52-1.04) mg/dL Glucose (74-99) mg/dL POC Glucose (mg/dL) (70-110) mg/dL Calcium (8.4-10.2) mg/dL AST (14-36) U/L ALT (4-34) U/L Alkaline Phosphatase (38-126) U/L Total Protein (6.3-8.2) g/dL Albumin (3.5-5.0) g/dL Microbiology - Last 24 Hours (Table) 10/26/24 15:54 Blood Culture - Final Blood Assessment and Plan Assessment: 1. Acute kidney injury secondary to ATN secondary to bradycardia, hypotension further worsen with the use of NSAIDs and diuretics. Baseline creatinine 0.7- 0.8 and 3.31 on admission. Oliguric. Started on hemodialysis October 26, 2024 via femoral dialysis catheter. No hydronephrosis noted on kidney ultrasound. 2. Hyperkalemia secondary to acute kidney injury, acidosis, NSAIDs, potassium supplementation. Improved. 3. Bradycardia secondary to hyperkalemia. Improved. 4. Metabolic acidosis secondary to acute kidney injury. Status post bicarb drip. Improved. 5. Shock liver. 6. Recent right knee surgery with subsequent fall. Will need further intervention in the future. 7. Hyponatremia secondary to acute kidney injury, hypervolemic. Also receiving some IV meds with hypotonic fluids. 8. Acute hypoxic respiratory failure. Intubated. Plan: Continue with daily dialysis for now. Next treatment tomorrow. Maintain tube feeds. Monitor for renal recovery. Wean FiO2 and vasopressors. Maintain midodrine. Preserved ejection fraction noted on echocardiogram. Avoid nephrotoxins. IV Lasix given October 27, 2024 with minimal response in urine output.
[2024-11-01 11:54] LABS: Glucose,Whole Blood 112 mg/dL (70-110)
--- NOTE | 2024-11-01 12:43 | P.PN ---
Subjective Progress Note Date: 11/01/24 This is a 54-year-old female with past medical history significant for recent knee surgery proximately within the last 3 months with fall postoperatively 1 week ago, osteoarthritis, treated for UTI outpatient last week with Macrobid, COPD, migraines, hypertension, osteoarthritis, morbid obesity, sleep apnea, anxiety, depression, nicotine dependence and multiple other medical issues brought into the ER via EMS with reports of confusion, hallucinations, hypoxia, hypotension. Family reports patient nauseated and dizzy since Saturday night. on EMS arrival, reported systolic blood pressure of 80s, O2 sats of 70% on room air, placed on nonrebreather, EKG reported severe bradycardia with heart rates in the 20s and 30s. ER reports ,on arrival patient was alert and oriented to person and place, reported she had taken an additional [place] as well as an additional Flexeril for knee pain. Creatinine 3.24 on admission, currently at 3.3, baseline 0.7. Hyperkalemic cocktail administered for potassium at 8.6 , currently down to 6.3. EKG reported wide-complex bradycardia, junctional. ABGs reported pH of 7.14, pCO2 53, pO2 87, bicarb 18, total CO2 20 O2 sat 94 with a base excess of -11.1 on 70% FiO2. patient was intubated, taken to the [facility] for transvenous pacer, but spontaneously converted to sinus rhythm. Currently ventilator dependent with FiO2 100%/+8 with PEEP. Maintained on epinephrine and dopamine. Continues on bicarb drip. chest x-ray reported cardiomegaly, worsening pulmonary edema versus massive pneumonia ,antibiotics initiated. Hemoglobin A1c 6.0. T. bili 2.2, AST 3715, ALT 4016, alk phos 155. Hepatitis panel in progress. troponin negative x 1. TSH 9.660, free T4 1.35. 10/27/2024 Vent dependent .hemodialysis initiated yesterday. Maintained on bicarb drip, acidosis improving, bicarb 32, discontinued. Continues on dopamine and epinephrine drips echo reporting normal LV function, RVSP 66. Chest x-ray reporting persistent moderate large amount airspace opacities throughout both lungs more on the right, similar. 10/28/2024 Vent dependent, yesterday vent settings of 100% FiO2 +12 of PEEP; today FiO2 100%/+15 of PEEP on pressure control. Lasix attempted yesterday, no improvement. Chest x-ray reporting cardiomegaly, ongoing interstitial and patchy opacities, continue small effusions with adjacent atelectasis and/or consolidation. Received hemodialysis yesterday and today. Renal function improving, bicarb 28, BUN 47, creatinine 2.51. remains on Nimbex, diprovan, dopamine and fentanyl drips. Calcium 7.5, received calcium gluconate. Worsening LFTs. Maintained on Zosyn, Decadron, sputum culture reporting Pseudomonas aeruginosa Tmax 99, WBC 11.2. Venous Doppler pending. 10/29/2024 ventilator dependent, maintained on 100% FiO2/+15 PEEP. Continues on Nimbex ,diprovan ,fentanyl, dopamine drips. Midodrine added to med regimen. Continues on Zosyn, nebulized bronchodilators, dexamethasone. Blood sugars better controlled.Afebrile, normal WBC. HD today. LFTs trending down. Albumin 2.9. 10/30/2024 unstable to travel off the floor for further imaging/studies. Remains vent dependent with FiO2 100%/+15 PEEP. Maintained on diprovan, Nimbex, dopamine, fentanyl drips.EEG reported abnormal, background slowing, moderate encephalopathy ; diffuse suppression likely due to medication -propofol .continues on daily hemodialysis. Continues on Zosyn for sputum positive with Pseudomonas aeruginosa. 10/31/2024 Patient evaluated today in the ICU remains on the mechanical ventilator with FiO2 of 100%/PEEP of 15. Chest xray today reveals partially consolidative and interstitial infiltrate in the right mid and lower lung zone. Improvement in aeration of the left lung base with no definite retrocardiac infiltrate on this study. Patient continues on Dopamine infusion and has been started on hemodialysis and will be undergoing hemodialysis again today. She is not responding to painful stimuli and pupils are minimally reactive. Plan is to wean off the sedation this afternoon in order to undergo a thurough neurological evaluation. Patient has been unable to tolerate lying flat for greater than 10 minutes as she desaturates quickly for this reason she is unable to undergo CT of the brain or CT of the chest/abdomen/pelvis. Patient is currently on precedex, propofol. She has been weaned off pressor support. Remains on IV zosyn. Labs today reveal a sodium level of 126, potassium 4.8, BUN of 57, creatinine of 3.23. LFTs remain elevated although slightly decreased. 11/01/2024 Patient evaluated in follow-up in intensive care unit. Patient underwent paralytic holiday yesterday tolerated for about 4 to 5 hours where she became asynchronous with the vent and desaturated. Patient is now about 83% oxygen saturation on the mechanical ventilator with an FiO2 of 100%. Patient will be undergoing hemodialysis again tomorrow. She continues on dopamine infusion. White blood cell count is 21.1. Unable to complete a review of systems at this time patient is sedated and on the mechanical ventilator. All inpatient medications were reviewed and appropriate changes in these medications as dictated in the interval history and assessment and plan. PHYSICAL EXAMINATION: GENERAL: The patient remains on the ventilator. not in any acute distress. Well developed, well nourished. Morbidly Obese HEENT: Pupils are round and equally reacting to light. EOMI. No scleral icterus. No conjunctival pallor. Normocephalic, atraumatic. No pharyngeal erythema. No thyromegaly. CARDIOVASCULAR: S1 and S2 present. No murmurs, rubs, or gallops. PULMONARY: Chest is clear to auscultation, no wheezing or crackles. ABDOMEN: Soft, nontender, nondistended, normoactive bowel sounds. No palpable organomegaly. MUSCULOSKELETAL: No joint swelling or deformity. EXTREMITIES: No cyanosis, clubbing, or pedal edema. NEUROLOGICAL: Unable to assess pupils are sluggish SKIN: No rashes. Assessment and plan Bradycardia, severe, currently sinus unable to undergo pacemaker insertion Acute on chronic hypoxic respiratory failure, wears 2 L nasal cannula at home, mechanical ventilator dependent Acute renal failure secondary to ATN, related to all the above, requiring emergent hemodialysis Hyperkalemia secondary to NSAIDs, and renal failure Hypotension hypovolemic shock maintained on dopamine, status post epinephrine Sputum positive with Pseudomonas Hyponatremia secondary to the above, hypervolemic Shock liver Metabolic acidosis, maintained on bicarb drip Altered mental status, secondary to hypoxic and metabolic encephalopathy Recent knee surgery, status post fall postoperative Recent UTI, treated outpatient with Macrobid last week Alpha-1 antitrypsin deficiency, history of Obstructive sleep apnea, wears CPAP at night History of pulmonary hypertension Ongoing nicotine dependence, marijuana edibles, and history of vaping Hypertension Hyperlipidemia Osteoarthritis Morbid obesity, BMI 55 Anxiety/Depression Chronic peripheral neuropathy Chronic back pain History of Migraines, chronic GI prophylaxis DVT prophylaxis Full code Patient remains intubated and sedated on the mechanical ventilator in the intensive care unit Patient continues on IV Zosyn She did not tolerate being off the paralytics yesterday Still unable to complete a brain chest abdomen pelvis CT scan as she is unable to lie flat due to significant desaturations while on the mechanical ventilator Continue IV dopamine Continue dialysis per nephrology Monitor electrolytes and renal function Prognosis remains extremely guarded The impression and plan of care has been dictated by Kathy Burkett, Nurse Practitioner as directed. Dr. David MD I have performed a history and physical examination and medical decision making of this patient, discussed the same with the dictator, and agree with the dictators assessment and plan as written, documented as a scribe. Based on total visit time, I have performed more than 50% of this visit. Objective - Vital Signs Vital signs: Vital Signs Temp 98.5 F 11/01/24 12:00 Pulse 82 11/01/24 12:00 Resp 33 H 11/01/24 12:00 BP 89/39 11/01/24 02:45 Pulse Ox 91 L 11/01/24 12:00 FiO2 100 11/01/24 12:00 Intake & Output 10/31/24 11/01/24 11/01/24 18:59 06:59 18:59 Intake Total 2130.584 1794.201 743.744 Output Total 6560 15 15 Balance -4429.416 1779.201 728.744 Weight 188 kg Intake: IV 376 336 138 Piperacillin-Tazobactam 3 100 100 .375 gm In Sodium Chloride 0.9% 100 ml @ 25 mls/hr IVPB Q12H SUMEET Rx# :[id number] Pressure Bag 36 36 18 Sodium Chloride 0.9% 1, 240 200 120 000 ml @ 20 mls/hr IV . Q24H SUMEET Rx#:[id number] Intake, IV Titration 328.118 9885.201 445.744 Amount Cisatracurium 200 mg In 200 39.481 160.519 Sodium Chloride 0.9% 180 ml @ 1 MCG/KG/MIN 8.709 mls/hr IV .[id number] SUMEET Rx #:[id number] DOPamine DRIP 800 mg In 17.966 26.083 17.285 Dextrose/Water 1 250ml. bag @ 1 MCG/KG/MIN 2.722 mls/hr IV .Q24H SUMEET Rx#: [id number] fentaNYL (PF) 2,500 mcg 250 466.757 In Sodium Chloride 0.9% 200 ml @ 2 MCG/KG/HR 29. 03 mls/hr IV .Q8H37M SUMEET Rx#:[id number] propofoL 1,000 mg In 456.618 635.880 267.94 Empty Bag 1 bag @ 15 MCG/ KG/MIN 13.064 mls/hr IV . Q7H40M SUMEET Rx#:[id number] Tube Feeding 240 200 100 Hemodialysis 500 Other 90 90 60 Output: Urine 60 15 15 Hemodialysis 3500 Hemodialysis Net Amount 3000 Other: Voiding Method Indwelling Catheter Indwelling Catheter Indwelling Catheter ABP, PAP, CO, CI - Last Documented Arterial Blood Pressure 116/58 - Labs CBC & Chem 7: 11/01/24 04:16 11/01/24 04:16 Labs: Abnormal Lab Results - Last 24 Hours (Table) 10/31/24 10/31/24 11/01/24 Range/Units 17:41 23:15 04:16 WBC 21.1 H (3.8-10.6) k/uL Hgb 10.6 L (11.4-16.0) gm/dL MCHC 30.7 L (31.0-37.0) g/dL RDW 18.4 H (11.5-15.5) % ABG pH (7.35-7.45) ABG pCO2 (35-45) mmHg ABG pO2 (83-108) mmHg ABG HCO3 (21-25) mmol/L ABG Total CO2 (19-24) mmol/L ABG O2 Saturation (94-97) % Hemoglobin (11.4-16.0) gm/dL Sodium (137-145) mmol/L Chloride (98-107) mmol/L BUN (7-17) mg/dL Creatinine (0.52-1.04) mg/dL Glucose (74-99) mg/dL POC Glucose (mg/dL) 113 H 122 H (70-110) mg/dL Calcium (8.4-10.2) mg/dL AST (14-36) U/L ALT (4-34) U/L Alkaline Phosphatase (38-126) U/L Total Protein (6.3-8.2) g/dL Albumin (3.5-5.0) g/dL 11/01/24 11/01/24 11/01/24 Range/Units 04:16 05:02 05:36 WBC (3.8-10.6) k/uL Hgb (11.4-16.0) gm/dL MCHC (31.0-37.0) g/dL RDW (11.5-15.5) % ABG pH 7.32 L (7.35-7.45) ABG pCO2 50 H (35-45) mmHg ABG pO2 59 L* (83-108) mmHg ABG HCO3 26 H (21-25) mmol/L ABG Total CO2 27 H (19-24) mmol/L ABG O2 Saturation 87.7 L (94-97) % Hemoglobin 11.0 L (11.4-16.0) gm/dL Sodium 127 L (137-145) mmol/L Chloride 94 L (98-107) mmol/L BUN 49 H (7-17) mg/dL Creatinine 2.93 H (0.52-1.04) mg/dL Glucose 123 H (74-99) mg/dL POC Glucose (mg/dL) 124 H (70-110) mg/dL Calcium 7.9 L (8.4-10.2) mg/dL AST 112 H (14-36) U/L ALT 1975 H (4-34) U/L Alkaline Phosphatase 159 H (38-126) U/L Total Protein 5.8 L (6.3-8.2) g/dL Albumin 3.1 L (3.5-5.0) g/dL 11/01/24 Range/Units 11:53 WBC (3.8-10.6) k/uL Hgb (11.4-16.0) gm/dL MCHC (31.0-37.0) g/dL RDW (11.5-15.5) % ABG pH (7.35-7.45) ABG pCO2 (35-45) mmHg ABG pO2 (83-108) mmHg ABG HCO3 (21-25) mmol/L ABG Total CO2 (19-24) mmol/L ABG O2 Saturation (94-97) % Hemoglobin (11.4-16.0) gm/dL Sodium (137-145) mmol/L Chloride (98-107) mmol/L BUN (7-17) mg/dL Creatinine (0.52-1.04) mg/dL Glucose (74-99) mg/dL POC Glucose (mg/dL) 112 H (70-110) mg/dL Calcium (8.4-10.2) mg/dL AST (14-36) U/L ALT (4-34) U/L Alkaline Phosphatase (38-126) U/L Total Protein (6.3-8.2) g/dL Albumin (3.5-5.0) g/dL Microbiology - Last 24 Hours (Table) 10/26/24 15:54 Blood Culture - Final Blood Assessment and Plan Time with Patient: Less than 30
--- NOTE | 2024-11-01 14:22 | P.PN ---
Subjective Progress Note Date: 11/01/24 Principal diagnosis: Acute on chronic hypoxic respiratory failure and acute hypercapnic respiratory failure with hypovolemic shock and severe bradycardia This is a 54-year-old female with history of multiple medical problems including COPD, chronic pain syndrome, dyslipidemia, bipolar disorder, hypertension, patient was brought into the ER yesterday mostly with change in mental status and according to family patient has been confused for the last 2 days, patient has been hallucinating and upon arrival to the ER she was noted to be severely bradycardic and hypotensive. Patient remained bradycardic, patient was seen by cardiology on consultation for her bradycardia, patient was taken to the cardiac [employer], her blood pressure was 120 on norepinephrine, decision was made to hold her pacemaker insertion. Previous cardiac workup from previous records has shown preserved systolic function and no documented ischemic heart disease. When labs were reviewed, patient was noted to have hyperkalemia and acute renal failure, shock liver profile, patient was intubated in the ER, she was eventually transferred to the ICU after she went to cardiac cath. But again pacemaker insertion was placed on hold. Patient is now intubated mechanically ventilated, she is on assist-control rate of 22 tidal volume 500 FiO2 100% and PEEP of 8 ABG showed a pO2 of 87 pCO2 53 pH of 7.14, her rate was increased to 26, patient received 1 amp of bicarb, and she was already on bicarb drip. Patient is on multiple drips including dopamine at 10 mcg/kg/min, propofol at 45 mg/kg/min Versed which I have discontinued 3 mg/h patient is also receiving epinephrine at 0.12 mcg/kg/min receiving 3 A of bicarb in D5W at 200 cc/h patient is hyperkalemic and follow-up sodium remains above 6, although the patient received the hyperkalemia protocol. Her initial potassium was 8.6 on her initial presentation. Patient already had a hemodialysis catheter placed by vascular surgery in the left groin, and she has a right IJ triple-lumen catheter. I went ahead and placed a right radial arterial line. Patient is scheduled to undergo hemodialysis today, patient is not responsive to any stimuli except deep painful stimuli noted while I was placing an arterial line, patient withdraws to painful stimuli/needlestick. Pupils are dilated and sluggishly reactive. Looking back at her history patient had total knee arthroplasty 3 months ago and she had a fall about a week ago may have sustained head injury however CT of the brain is pending patient is to be seen by neurology on consultation today. And she is being seen by many consultants including nephrology and cardiology. Overall picture is extremely poor and guarded. And the patient is critically ill. Blood sugars are running high as 336 liver enzymes are elevated including a bilirubin of 2.2 AST of 3715 ALT of 4016 and alkaline phosphatase of 155 Patient seen today on 10/27/2024, patient remains in the ICU, intubated and mecha nically ventilated sedated and paralyzed. Patient developed worsening pulmonary edema over the last 24 hours, hence she required higher FiO2 of 100% higher PEEP of 12 and she remains marginal as far as oxygenation is concerned. Patient is undergoing hemodialysis today no fluid was removed yesterday, and nephrology is planning to remove only 500 cc of fluid today. Patient remains on dopamine at 10 mcg/kg/min epinephrine at 0.02 mcg/kg/min Fentanyl at 2 mcg/kg/h propofol at 75 mcg/kg/min remains on Nimbex at 1 mcg/kg per minute and was supposed to have a CT of the brain yesterday, however the portion was relatively unstable could not have the CT of the brain done yesterday mostly because of arrhythmia and hypotension had to be brought back up to the ICU and she had to be paralyzed. Overall condition is not promising, actually her condition seems to be worse today compared to yesterday. Patient was seen by neurology on consultation still entertaining the possibility of anoxic brain injury due to severe hypoxia. The patient has anisocoria with right pupil larger than the left pupil full adequate neurological exam could not be fully done mostly because of the fact the patient is on Nimbex Fentanyl and propofol. Patient could not come off Nimbex mostly because could not be ventilated yesterday in spite of multiple sedatives including propofol and fentanyl. These were relatively high doses. She was very asynchronous with the ventilator, breathing over 40/min, had to be given Nimbex otherwise could not ventilate the patient. Today continues to have high peak airway pressure in the range of 40 high plateau pressures in the range of 34, and she has marginal oxygenation chest x-ray showed pulmonary edema underlying aspiration pneumonia is not entirely ruled out hence the patient remains on antibiotics empirically and she still receiving diuretics she is also on hemodialysis because she had complete renal shutdown on this admission. Her WBC count is 11.3 hemoglobin is 11.4 her ABG today showed a pO2 of 74 pCO2 72 pH of 7.26 basic metabolic profile showed potassium of 4.9 BUN of 82 creatinine 2.77 AST is 7474 ALT is 7846 worse today compared to yesterday. This is a picture of shock liver to mention the patient presented with acute tubular necrosis and acute kidney injury. Severe metabolic acidosis and severe hyperkalemia leading to bradycardia hypotension, cardiogram showed good LV function today, ejection fraction of 60 to 65% right-sided pressures are in the range of 66. Patient was seen today on 10/28/2024, remains in the ICU, remains intubated and mechanically ventilated. Patient is on assist-control rate of 3 0 tidal volume 400 FiO2 100% and PEEP of 15. However considering her relatively high peak airway pressure and plateau pressures I switched the patient to a pressure control mode of mechanical ventilation with PI of 23 TI 0.7 rate remains 33 and PEEP remains at 15. ABG earlier today showed a pO2 of 54 pCO2 50 pH of 7.35. Patient remains on Decadron remains on Zosyn, sputum is positive for Pseudomonas aeruginosa patient remains extremely oliguric 5 to 10 cc/h. He did not improve with Lasix yesterday. Remains on dialysis and she will have dialysis again today. Did not do a CT of the brain and could not do a CT of the chest mostly because of her instability. Recommending a venous Doppler to be done today. Time patient remains on Nimbex at 2 mcg/kg/min and dopamine 7.5 mcg/kg/min and I am cutting it down to 5 fentanyl at 2 mcg/kg/h propofol at 65 mcg/kg/min he is off epinephrine. Could use norepinephrine if necessary for low blood pressure. Right now she is only on dopamine which is to be tapered down to a renal perf usion dose if possible. This x-ray continues to show cardiomegaly and evidence of pulmonary edema, small bilateral pleural effusions and atelectasis. WBC count is 11.2 hemoglobin 11.9, sodium 124 potassium 6.6 enzymes remain elevated. Profile is abnormal with a BUN of 71 creatinine 3.20 patient is undergoing hemodialysis again today Seen today on 10/29/2024, patient remains in the ICU intubated mechanically ventilated sedated and paralyzed patient is on assist-control rate of 33 tidal volume 400 FiO2 100% and PEEP of 15 ABG showed a pO2 of 59 pCO2 51 pH of 7.32. Patient is having another hemodialysis today and the plan is to remove 2.5 L today. Patient remains on Nimbex at 2 mcg/kg/min and she also on vital HP at 20 cc/h dopamine at 2 mcg/kg/min Fentanyl at 2 mcg/kg/kg/h propofol at 65 mg/kg/min and IV fluid at KVO. Chest x-ray is basically about the same continues to show evidence of pulmonary edema and bilateral pleural effusion her labs showed low sodium of 125, bicarb is 24 BUN is 63 creatinine 3.50 liver enzymes are improving with ALT down to 6491, AST is down to 2071 venous Doppler of lower extremities could not be optimal because of her legs condition and swelling as w ell as body habitus, could not send the patient back down for CT angiogram of the chest and for CT of the head patient had some sort of head trauma, I am afraid to place patient empirically on heparin, and I am yet to stabilize the patient to have a CT of the head. Her clinical condition is extremely marginal at best, and I prefer not to send her down for CT of the chest and CT of the head at this point EEG did show evidence of moderate encephalopathy and I believe the patient must have sustained some significant anoxic brain injury Patient was seen today on 10/30/2024, remains in the ICU, intubated and mechanically ventilated. On assist-control rate of 33 tidal volume 400 FiO2 100% PEEP of 15 ABG showed a pO2 of 71 pCO2 46 pH of 7.36. Patient is having more hemodialysis today, and the plan is to remove 3 L of fluids. Patient remains on Demadex at 1 mcg/kg/min, dopamine at 0.5 mcg/kg/min Fentanyl at 2 mg/kg/h propofol 65 mcg/kg/min. Patient remains empirically on Zosyn much of major change noted in the last 24 hours, patient desaturates easily as soon as she goes down to flat position. Hence I am reluctant to send the patient down for CT of the brain and CT of the chest. Mother is at bedside and she was updated on her condition WBC count is 7.7 hemoglobin 10.7 sodium is 126 potassium 4.9 BUN is 57 creatinine 3.54 chest x-ray continues to show pleural effusions and pulmonary edema Patient was seen today on 10/31/2024, patient remains in the ICU, intubated and mechanically ventilated, she is on assist-control rate of 33 tidal volume 400 FiO2 100% and PEEP of 15 ABG remains marginal with a pCO2 of 66 pCO2 50 pH of 7.33 uv on Nimbex at 2 mcg/kg/min dopamine at 1 mcg/kg/min propofol at 65 mg/kg/min IV fluids at KVO vital HP at 20 patient remains on Zosyn for positive Pseudomonas in the sputum. Remains on Lovenox. Patient is also on fentanyl at 2 mcg/kg/h. X-ray continues show evidence of pulmonary edema, her overall clinical condition remains very poor, remains relatively unstable and she could not lay flat to have CT of the brain and CT angiogram of the chest. Undergoing daily hemodialysis. Chest x-ray is not showing any significant improvement in spite of daily dialysis. Count is 11.4 hemoglobin 10.2 sodium remains low at 126 platelets 57 creatinine 3.23, bicarb is 23 her enzymes are improving AST down to 77-77 and ALT is 2947 alkaline phosphatase 178 albumin is 2.9 Reevaluate today on 11/01/2024, patient remains in the ICU, there has not been any significant change in the last few days and her overall clinical status except improvement in her liver profile. Patient remains intubated and mechanically ventilated, remains on assist-control rate of 33 tidal volume 400 FiO2 100% and PEEP of 15 ABG remains marginal with a pO2 of 59 pCO2 50 pH of 7.32 patient may get hemodialysis today. Remains on antibiotics empirically she is on Zosyn she had Pseudomonas in her sputum and that is being addressed. Patient continues to have minimal urine output/oliguric 30 cc of urine output in the last 12 hours remains on Nimbex at 3 mcg/kg/min propofol at 65 mcg/kg/min and she is also on vital sleep formula for nutritional support . Family is at bedside, discussed the fact that the patient is not showing any improvement also discussed the fact that the patient is not in a position where we could safely perform CT of the head and CT angiogram of the chest. Patient was given a trial of pressure control mode of mechanical ventilation because of her peak airway pressures however the volumes went down significantly and could not martin ntain adequate volumes and the patient was noted to desaturate with pressure control. This went back to volume control mode of mechanical ventilation. Chest x-ray continues to show evidence of pulmonary edema, underlying infection/pneumonia is not entirely ruled out but felt to be less likely cons idering her presentation. WBC count today is 21.1 hemoglobin 10.6 sodium 127 BUN is 49 creatinine 2.93 Objective - Vital Signs Vital signs: Vital Signs Temp 98.5 F 11/01/24 12:00 Pulse 73 11/01/24 14:00 Resp 33 H 11/01/24 14:00 BP 89/39 11/01/24 02:45 Pulse Ox 88 L 11/01/24 14:00 FiO2 100 11/01/24 12:00 Intake & Output 10/31/24 11/01/24 11/01/24 18:59 06:59 18:59 Intake Total 2130.584 0515.534 4328.997 Output Total 6560 15 20 Balance -4429.416 2003.004 5028.997 Weight 188 kg Intake: IV 376 336 184 Piperacillin-Tazobactam 3 100 100 .375 gm In Sodium Chloride 0.9% 100 ml @ 25 mls/hr IVPB Q12H [facility] Rx# :[id number] Pressure Bag 36 36 24 Sodium Chloride 0.9% 1, 240 200 160 000 ml @ 20 mls/hr IV . Q24H [facility] Rx#:[id number] Intake, IV Titration 725.197 1610.201 774.997 Amount Cisatracurium 200 mg In 200 39.481 160.519 Sodium Chloride 0.9% 180 ml @ 1 MCG/KG/MIN 8.709 mls/hr IV .[id number] [facility] Rx #:[id number] DOPamine DRIP 800 mg In 17.966 26.083 17.285 Dextrose/Water 1 250ml. bag @ 1 MCG/KG/MIN 2.722 mls/hr IV .Q24H [facility] Rx#: [id number] fentaNYL (PF) 2,500 mcg 250 466.757 250 In Sodium Chloride 0.9% 200 ml @ 2 MCG/KG/HR 29. 03 mls/hr IV .Q8H37M [facility] Rx#:[id number] propofoL 1,000 mg In 456.618 635.880 347.193 Empty Bag 1 bag @ 15 MCG/ KG/MIN 13.064 mls/hr IV . Q7H40M [facility] Rx#:[id number] Tube Feeding 240 200 140 Hemodialysis 500 Other 90 90 60 Output: Urine 60 15 20 Hemodialysis 3500 Hemodialysis Net Amount 3000 Other: Voiding Method Indwelling Catheter Indwelling Catheter Indwelling Catheter ABP, PAP, CO, CI - Last Documented Arterial Blood Pressure 127/61 - Exam GENERAL: Revealed a 55-year-old female intubated, mechanically ventilated, unresponsive to any stimuli except deep painful stimuli/needlesticks. Patient is on Nimbex, propofol, fentanyl , dopamine HEENT: Normocephalic, atraumatic , sub conjunctival swelling is noted pupils are reactive to light NECK: Supple, No JVD. Endotracheal tube is intact, patient has a short obese neck, no neck masses no stridor. There is evidence of some conjunctival swelling CARDIOVASCULAR: Distant S1-S2, no S3 gallop, no murmur. RESPIRATION: Diminished breath sound bilaterally no rhonchi and wheezes noted today ABDOMEN: Morbidly obese, soft, nontender,obese, nondistended ,positive Bowel sounds. LEGS: Trace of bipedal edema, diminished distal pulses bilaterally. NERVOUS SYSTEM: unable to evaluate as patient sedated and intubated, paralyzed Skin: Warm and dry, no rash Psychiatric: Could not assess. Patient is sedated on propofol and on fentanyl, and Nimbex - Labs CBC & Chem 7: 11/01/24 04:16 11/01/24 04:16 Labs: Abnormal Lab Results - Last 24 Hours (Table) 10/31/24 10/31/24 11/01/24 Range/Units 17:41 23:15 04:16 WBC 21.1 H (3.8-10.6) k/uL Hgb 10.6 L (11.4-16.0) gm/dL MCHC 30.7 L (31.0-37.0) g/dL RDW 18.4 H (11.5-15.5) % ABG pH (7.35-7.45) ABG pCO2 (35-45) mmHg ABG pO2 (83-108) mmHg ABG HCO3 (21-25) mmol/L ABG Total CO2 (19-24) mmol/L ABG O2 Saturation (94-97) % Hemoglobin (11.4-16.0) gm/dL Sodium (137-145) mmol/L Chloride (98-107) mmol/L BUN (7-17) mg/dL Creatinine (0.52-1.04) mg/dL Glucose (74-99) mg/dL POC Glucose (mg/dL) 113 H 122 H (70-110) mg/dL Calcium (8.4-10.2) mg/dL AST (14-36) U/L ALT (4-34) U/L Alkaline Phosphatase (38-126) U/L Total Protein (6.3-8.2) g/dL Albumin (3.5-5.0) g/dL 11/01/24 11/01/24 11/01/24 Range/Units 04:16 05:02 05:36 WBC (3.8-10.6) k/uL Hgb (11.4-16.0) gm/dL MCHC (31.0-37.0) g/dL RDW (11.5-15.5) % ABG pH 7.32 L (7.35-7.45) ABG pCO2 50 H (35-45) mmHg ABG pO2 59 L* (83-108) mmHg ABG HCO3 26 H (21-25) mmol/L ABG Total CO2 27 H (19-24) mmol/L ABG O2 Saturation 87.7 L (94-97) % Hemoglobin 11.0 L (11.4-16.0) gm/dL Sodium 127 L (137-145) mmol/L Chloride 94 L (98-107) mmol/L BUN 49 H (7-17) mg/dL Creatinine 2.93 H (0.52-1.04) mg/dL Glucose 123 H (74-99) mg/dL POC Glucose (mg/dL) 124 H (70-110) mg/dL Calcium 7.9 L (8.4-10.2) mg/dL AST 112 H (14-36) U/L ALT 1975 H (4-34) U/L Alkaline Phosphatase 159 H (38-126) U/L Total Protein 5.8 L (6.3-8.2) g/dL Albumin 3.1 L (3.5-5.0) g/dL 11/01/24 Range/Units 11:53 WBC (3.8-10.6) k/uL Hgb (11.4-16.0) gm/dL MCHC (31.0-37.0) g/dL RDW (11.5-15.5) % ABG pH (7.35-7.45) ABG pCO2 (35-45) mmHg ABG pO2 (83-108) mmHg ABG HCO3 (21-25) mmol/L ABG Total CO2 (19-24) mmol/L ABG O2 Saturation (94-97) % Hemoglobin (11.4-16.0) gm/dL Sodium (137-145) mmol/L Chloride (98-107) mmol/L BUN (7-17) mg/dL Creatinine (0.52-1.04) mg/dL Glucose (74-99) mg/dL POC Glucose (mg/dL) 112 H (70-110) mg/dL Calcium (8.4-10.2) mg/dL AST (14-36) U/L ALT (4-34) U/L Alkaline Phosphatase (38-126) U/L Total Protein (6.3-8.2) g/dL Albumin (3.5-5.0) g/dL Microbiology - Last 24 Hours (Table) 10/26/24 15:54 Blood Culture - Final Blood Assessment and Plan Assessment: Impression: Acute on chronic hypoxic respiratory failure, patient is normally on 2 L nasal cannula at home. Acute hypercapnic respiratory failure Severe bradycardia with hypovolemic shock Acute kidney injury secondary to ATN, on hemodialysis since admission Severe acute hyperkalemia, multifactorial patient does have history of nonsteroidal anti-inflammatory drugs use and presented with bradycardia and hypotension and a picture of cardiogenic shock Shock liver, improving but not resolved Acute metabolic and respiratory acidosis as noted on ABG Recent history of knee surgery Recent urinary tract infection History of pulmonary hypertension History of alpha 1 antitrypsin deficiency History of nicotine dependence Benign essential hypertension Morbid obesity Degenerative joint disease Chronic peripheral neuropathy Chronic back pain History of migraine cephalgia History of depression History of pulmonary hypertension possible acute anoxic brain injury Pseudomonas in the sputum, on Zosyn, all along Recommendation: Discussed and updated the family on her condition today and started him think about possibly considering comfort care measures and decide on this in the next 24 to 48 hours. In the meantime continue ventilatory support, tried pressure control mode of mechanical ventilation did not seem to do well with pressure control. Unable to send patient for further diagnostic procedures because of her instability Continue sedation and paralysis Continue hemodialysis GI and DVT prophylaxis Continue enteral feeding/nutritional support Continue insulin Continue bronchodilator Continue Zosyn for Pseudomonas in the sputum Continue dopamine at 1 mcg/kg/min Family is very well aware of her poor prognosis and overall poor clinical picture Prognosis extremely poor and guarded Patient remains critically ill and prognosis is extremely poor Critical care time is over 30 minutes Time with Patient: Greater than 30
[2024-11-01 17:41] LABS: Glucose,Whole Blood 108 mg/dL (70-110)
--- NOTE | 2024-11-01 20:28 | PN ---
PROGRESS NOTE SUBJECTIVE: Kim is a 54-year-old lady, who was admitted to hospital with respiratory failure, renal failure, and was bradycardic secondary to hyperkalemia on her initial presentation. She remains intubated on vent, unable to wean the sedation. She could not tolerate the sedation holiday yesterday. OBJECTIVE: VITAL SIGNS: Heart rate is 83 beats per minute, blood pressure is 112/57, respiratory rate is 24. CHEST: Reveals diminished air entry bilaterally. HEART: Reveals first and second heart sounds. No gallop. ABDOMEN: Soft. EXTREMITIES: Reveals edema that is much improved. LABORATORY DATA: Labs show a white cell count of 21, hemoglobin is 10.6, potassium is 4.8, creatinine is 2.9. ASSESSMENT AND PLAN: Vent requiring respiratory failure, acute renal failure, bradycardia secondary to hyperkalemia, resolved. The patient remained stable cardiac-byrd. Her ejection fraction is normal. We will see the patient on an as-needed basis. MMODL / IJN: [id number] /
[2024-11-01 23:36] LABS: Glucose,Whole Blood 111 mg/dL (70-110)
[2024-11-02 04:47] LABS: Anisocytosis Slight; Basophils % (A) 0 %; Eosinophils # (A) 0.4 k/uL (0-0.7); Eosinophils % (A) 2 %; HCT 33.4 % (34.0-46.0); HGB 10.5 gm/dL (11.4-16.0); Hypochromasia Moderate; Lymphocytes # (A) 0.5 k/uL (1.0-4.8); Lymphocytes % (A) 2 %; MCH 26.2 pg (25.0-35.0); MCHC 31.5 g/dL (31.0-37.0); MCV 83.4 fL (80.0-100.0); Mean Platelet Volume 10.8; Microcytosis Slight; Monocytes % (A) 4 %; Neutrophils # (A) 21.2 k/uL (1.3-7.7); Neutrophils % (A) 91 %; Platelet Count 194 k/uL (150-450); RBC 4.01 m/uL (3.80-5.40); RDW 18.3 % (11.5-15.5); WBC 23.2 k/uL (3.8-10.6)
[2024-11-02 04:56] LABS: ABG Base Excess -4.3 mmol/L; ABG HCO3 23 mmol/L (21-25); ABG Oxygen Saturation 84.4 % (94-97); ABG PCO2 51 mmHg (35-45); ABG PH 7.26 (7.35-7.45); ABG TCO2 25 mmol/L (19-24); Allen Test Performed? Yes
[2024-11-02 05:04] LABS: AST 59 U/L (14-36); Alkaline Phosphatase 132 U/L (38-126); Anion Gap 11 mmol/L; Blood Urea Nitrogen 65 mg/dL (7-17); Calcium 7.9 mg/dL (8.4-10.2); Carbon Dioxide 20 mmol/L (22-30); Chloride 94 mmol/L (98-107); Glucose 98 mg/dL (74-99); Magnesium 2.3 mg/dL (1.6-2.3); Potassium 5.7 mmol/L (3.5-5.1); Sodium 125 mmol/L (137-145); Total Bilirubin 0.8 mg/dL (0.2-1.3); Total Protein 5.8 g/dL (6.3-8.2)
[2024-11-02 05:10] LABS: African American GFR (CKD) 14 (>60 ml/min/1.73 sqM); Non-African American GFR(CKD) 12 (>60 ml/min/1.73 sqM)
[2024-11-02 05:27] LABS: ALT 1186 U/L (4-34)
[2024-11-02 05:43] LABS: ABG PO2 57 mmHg (83-108)
[2024-11-02 06:02] LABS: Glucose,Whole Blood 96 mg/dL (70-110)
--- NOTE | 2024-11-02 11:25 | XR ---
EXAMINATION TYPE: XR chest 1V portable DATE OF EXAM: 11/02/2024 4:57 AM COMPARISON: 11/01/2024 CLINICAL INDICATION: Female, 54 years old with history of mechanical ventilation, difficulty breathin g TECHNIQUE: XR chest 1V portable view(s) obtained. FINDINGS: The heart size is large. The pulmonary vasculature is normal. Bibasilar infiltrates are present. Findings a slight improvement over the interval. Continued follow- up is recommended Endotracheal tube tip is 3.4 cm above the izabella. Nasogastric tube transverses the thorax tip in left upper quadrant of the abdomen. Right central venous catheter tip is within the distal superior vena cava region. IMPRESSION: 1. Improving bibasilar infiltrates [facility], , 11/02/2024 11:23 AM
[2024-11-02 12:02] LABS: Glucose,Whole Blood 86 mg/dL (70-110)
--- NOTE | 2024-11-02 12:15 | P.PN ---
Subjective Progress Note Date: 11/02/24 Acute on chronic hypoxic respiratory failure and acute hypercapnic respiratory failure with hypovolemic shock and severe bradycardia This is a 54-year-old female with history of multiple medical problems including COPD, chronic pain syndrome, dyslipidemia, bipolar disorder, hypertension, patient was brought into the ER yesterday mostly with change in mental status and according to family patient has been confused for the last 2 days, patient has been hallucinating and upon arrival to the ER she was noted to be severely bradycardic and hypotensive. Patient remained bradycardic, patient was seen by cardiology on consultation for her bradycardia, patient was taken to the cardiac Communications Superintendent, her blood pressure was 120 on norepinephrine, decision was made to hold her pacemaker insertion. Previous cardiac workup from previous records has shown preserved systolic function and no documented ischemic heart disease. When labs were reviewed, patient was noted to have hyperkalemia and acute renal failure, shock liver profile, patient was intubated in the ER, she was eventually transferred to the ICU after she went to cardiac cath. But again pacemaker insertion was placed on hold. Patient is now intubated mechanically ventilated, she is on assist-control rate of 22 tidal volume 500 FiO2 100% and PEEP of 8 ABG showed a pO2 of 87 pCO2 53 pH of 7.14, her rate was increased to 26, patient received 1 amp of bicarb, and she was already on bicarb drip. Patient is on multiple drips including dopamine at 10 mcg/kg/min, propofol at 45 mg/kg/min Versed which I have discontinued 3 mg/h patient is also receiving epinephrine at 0.12 mcg/kg/min receiving 3 A of bicarb in D5W at 200 cc/h patient is hyperkalemic and follow-up sodium remains above 6, although the patient received the hyperkalemia protocol. Her initial potassium was 8.6 on her initial presentation. Patient already had a hemodialysis catheter placed by vascular surgery in the left groin, and she has a right IJ triple-lumen cathete r. I went ahead and placed a right radial arterial line. Patient is scheduled to undergo hemodialysis today, patient is not responsive to any stimuli except deep painful stimuli noted while I was placing an arterial line, patient withdraws to painful stimuli/needlestick. Pupils are dilated and sluggishly reactive. Looking back at her history patient had total knee arthroplasty 3 months ago and she had a fall about a week ago may have sustained head injury however CT of the brain is pending patient is to be seen by neurology on consultation today. And she is being seen by many consultants including nephrology and cardiology. Overall picture is extremely poor and guarded. And the patient is critically ill. Blood sugars are running high as 336 liver enzymes are elevated including a bilirubin of 2.2 AST of 3715 ALT of 4016 and alkaline phosphatase of 155 Patient seen today on 10/27/2024, patient remains in the ICU, intubated and mechanically ventilated sedated and paralyzed. Patient developed worsening pulmonary edema over the last 24 hours, hence she required higher FiO2 of 100% higher PEEP of 12 and she remains marginal as far as oxygenation is concerned. Patient is undergoing hemodialysis today no fluid was removed yesterday, and nephrology is planning to remove only 500 cc of fluid today. Patient remains on dopamine at 10 mcg/kg/min epinephrine at 0.02 mcg/kg/min Fentanyl at 2 mcg/kg/h propofol at 75 mcg/kg/min remains on Nimbex at 1 mcg/kg per minute and was suppo sed to have a CT of the brain yesterday, however the portion was relatively unstable could not have the CT of the brain done yesterday mostly because of arrhythmia and hypotension had to be brought back up to the ICU and she had to be paralyzed. Overall condition is not promising, actually her condition seems to be worse today compared to yesterday. Patient was seen by neurology on consultation still entertaining the possibility of anoxic brain injury due to severe hypoxia. The patient has anisocoria with right pupil larger than the left pupil full adequate neurological exam could not be fully done mostly because of the fact the patient is on Nimbex Fentanyl and propofol. Patient could not come off Nimbex mostly because could not be ventilated yesterday in spite of multiple sedatives including propofol and fentanyl. These were relatively high doses. She was very asynchronous with the ventilator, breathing over 40/min, had to be given Nimbex otherwise could not ventilate the patient. Today continues to have high peak airway pressure in the range of 40 high plateau pressures in the range of 34, and she has marginal oxygenation chest x- ray showed pulmonary edema underlying aspiration pneumonia is not entirely ruled out hence the patient remains on antibiotics empirically and she still receiving diuretics she is also on hemodialysis because she had complete renal shutdown on this admission. Her WBC count is 11.3 hemoglobin is 11.4 her ABG today showed a pO2 of 74 pCO2 72 pH of 7.26 basic metabolic profile showed potassium of 4.9 BUN of 82 creatinine 2.77 AST is 7474 ALT is 7846 worse today compared to yesterday. This is a picture of shock liver to mention the patient presented with acute tubular necrosis and acute kidney injury. Severe metabolic acidosis and severe hyperkalemia leading to bradycardia hypotension, cardiogram showed good LV function today, ejection fraction of 60 to 65% right-sided pressures are in the range of 66. Patient was seen today on 10/28/2024, remains in the ICU, remains intubated and mechanically ventilated. Patient is on assist-control rate of 3 0 tidal volume 400 FiO2 100% and PEEP of 15. However considering her relatively high peak airway pressure and plateau pressures I switched the patient to a pressure control mode of mechanical ventilation with PI of 23 TI 0.7 rate remains 33 and PEEP remains at 15. ABG earlier today showed a pO2 of 54 pCO2 50 pH of 7.35. Patient remains on Decadron remains on Zosyn, sputum is positive for Pseudomonas aeruginosa patient remains extremely oliguric 5 to 10 cc/h. He did not improve with Lasix yesterday. Remains on dialysis and she will have dialysis again today. Did not do a CT of the brain and could not do a CT of the chest mostly because of her instability. Recommending a venous Doppler to be done today. Time patient remains on Nimbex at 2 mcg/kg/min and dopamine 7.5 mcg/kg/min and I am cutting it down to 5 fentanyl at 2 mcg/kg/h propofol at 65 mcg/kg/min he is off epinephrine. Could use norepinephrine if necessary for low blood pressure. Right now she is only on dopamine which is to be tapered down to a renal perfusion dose if possible. This x-ray continues to show cardiomegaly and evidence of pulmonary edema, small bilateral pleural effusions and atelectasis. WBC count is 11.2 hemoglobin 11.9, sodium 124 potassium 6.6 enzymes remain elevated. Profile is abnormal with a BUN of 71 creatinine 3.20 patient is undergoing hemodialysis again today Seen today on 10/29/2024, patient remains in the ICU intubated mechanically ventilated sedated and paralyzed patient is on assist-control rate of 33 tidal volume 400 FiO2 100% and PEEP of 15 ABG showed a pO2 of 59 pCO2 51 pH of 7.32. Patient is having another hemodialysis today and the plan is to remove 2.5 L today. Patient remains on Nimbex at 2 mcg/kg/min and she also on vital HP at 20 cc/h dopamine at 2 mcg/kg/min Fentanyl at 2 mcg/kg/kg/h propofol at 65 mg/kg/min and IV fluid at KVO. Chest x-ray is basically about the same continues to show evidence of pulmonary edema and bilateral pleural effusion her labs showed low sodium of 125, bicarb is 24 BUN is 63 creatinine 3.50 liver enzymes are impro ving with ALT down to 6491, AST is down to 2071 venous Doppler of lower extremities could not be optimal because of her legs condition and swelling as well as body habitus, could not send the patient back down for CT angiogram of the chest and for CT of the head patient had some sort of head trauma, I am afraid to place patient empirically on heparin, and I am yet to stabilize the patient to have a CT of the head. Her clinical condition is extremely marginal at best, and I prefer not to send her down for CT of the chest and CT of the head at this point EEG did show evidence of moderate encephalopathy and I believe the patient must have sustained some significant anoxic brain injury Patient was seen today on 10/30/2024, remains in the ICU, intubated and mechanically ventilated. On assist-control rate of 33 tidal volume 400 FiO2 100% PEEP of 15 ABG showed a pO2 of 71 pCO2 46 pH of 7.36. Patient is having more hemodialysis today, and the plan is to remove 3 L of fluids. Patient remai ns on Demadex at 1 mcg/kg/min, dopamine at 0.5 mcg/kg/min Fentanyl at 2 mg/kg/h propofol 65 mcg/kg/min. Patient remains empirically on Zosyn much of the major change noted in the last 24 hours, patient desaturates easily as soon as she goes down to flat position. Hence I am reluctant to send the patient down for CT of the brain and CT of the chest. Mother is at bedside and she was updated on her condition WBC count is 7.7 hemoglobin 10.7 sodium is 126 potassium 4.9 BUN is 57 creatinine 3.54 chest x-ray continues to show pleural effusions and pulmonary edema Patient was seen today on 10/31/2024, patient remains in the ICU, intubated and mechanically ventilated, she is on assist-control rate of 33 tidal volume 400 FiO2 100% and PEEP of 15 ABG remains marginal with a pCO2 of 66 pCO2 50 pH of 7.33 vu on Nimbex at 2 mcg/kg/min dopamine at 1 mcg/kg/min propofol at 65 mg/kg/min IV fluids at KVO vital HP at 20 patient remains on Zosyn for positive Pseudomonas in the sputum. Remains on Lovenox. Patient is also on fentanyl at 2 mcg/kg/h. X-ray continues show evidence of pulmonary edema, her overall clinical condition remains very poor, remains relatively unstable and she could not lay flat to have CT of the brain and CT angiogram of the chest. Undergoing daily hemodialysis. Chest x-ray is not showing any significant improvement in spite of daily dialysis. Count is 11.4 hemoglobin 10.2 sodium remains low at 126 platelets 57 creatinine 3.23, bicarb is 23 her enzymes are improving AST down to 77-77 and ALT is 2947 alkaline phosphatase 178 albumin is 2.9 Reevaluate today on 11/01/2024, patient remains in the ICU, there has not been any significant change in the last few days and her overall clinical status except improvement in her liver profile. Patient remains intubated and mechanically ventilated, remains on assist-control rate of 33 tidal volume 400 FiO2 100% and PEEP of 15 ABG remains marginal with a pO2 of 59 pCO2 50 pH of 7.32 patient may get hemodialysis today. Remains on antibiotics empirically she is on Zosyn she had Pseudomonas in her sputum and that is being addressed. Patient continues to have minimal urine output/oliguric 30 cc of urine output in the last 12 hours remains on Nimbex at 3 mcg/kg/min propofol at 65 mcg/kg/min and she is also on vital sleep formula for nutritional support . Family is at bedside, discussed the fact that the patient is not showing any improvement also discussed the fact that the patient is not in a position where we could safely perform CT of the head and CT angiogram of the chest. Patient was given a trial of pressure control mode of mechanical ventilation because of her peak airway pressures however the volumes went down significantly and could not maintain adequate volumes and the patient was noted to desaturate with pressure control. This went back to volume control mode of mechanical ventilation. Chest x-ray continues to show evidence of pulmonary edema, underlying infection/pneumonia is not entirely ruled out but felt to be less likely considering her presentation. WBC count today is 21.1 hemoglobin 10.6 sodium 127 BUN is 49 creatinine 2.93 11/02/24 - Patient seen at bedside today, remaining in ICU, without any significant change overnight/over the past few days. Patient remains intubated mechanically ventilated on assist control with a tidal volume of 410, rate of 33, FiO2 of 100%, with a PEEP of 15. ABG shows pO2 57, pCO2 51, pH 7.26. Patient scheduled to receive hemodialysis today. Patient has remained on antibiotics decrease empirically with Zosyn as she had a positive sputum culture for Pseudomonas, however WBCs shown to be 23.2 this morning, increased from 21.1 yesterday. Patient continues to make minimal urine ~20 cc over the last 12 hours. Patient remains on dopamine drip of 0.5 mcg/kg/min, Nimbex 3 mcg/kg/min, fentanyl 2 mcg/kg/h, propofol 65 mcg/kg/min receiving 20 cc/h of normal saline and remains on Zosyn 3.375 g every 12 hours. Patient's mother remains at bedside, discussed with her about the patient has shown minimal improvement and continue to discuss how the patient is not in a position where we can safely perform a CT of the head and a CT angiogram of the chest, which have been discussed over the past few days. Chest x-ray showed evidence of pulmonary edema, however underlying infection/pneumonia not entirely ruled out. Discussion was had with the patient's mother and the patient care team for the possibility of transfer for the patient to undergo ECMO, which is to be explored over the next day or so. REVIEW OF SYSTEMS: Patient is currently intubated and mechanically ventilated. PHYSICAL EXAMINATION: GENERAL: 55-year-old female intubated, mechanically ventilated, unresponsive to any stimuli except deep painful stimuli/needlesticks. Patient remains on Nimbex, propofol, fentanyl, and dopamine HEENT: Subconjunctival swelling is noted, however improving. Normocephalic, atraumatic. CARDIOVASCULAR: S1 and S2 present. No murmurs, rubs, or gallops. PULMONARY: Diminished breath sounds bilaterally. ABDOMEN: Morbidly obese. Soft, nontender, nondistended, normoactive bowel sounds. MUSCULOSKELETAL: No joint swelling or deformity. EXTREMITIES: Trace bipedal edema noted. Bruising and swelling noted of the right knee. Diminished distal pulses. NEUROLOGICAL: Patient is intubated, sedated, paralyzed. SKIN: No rashes. Assessment and plan #Acute on chronic proximal respiratory failure (maintained on 2 L nasal cannula at home) #Acute hypercapnic respiratory failure #Acute metabolic and respiratory acidosis #Severe ARDS #Possible acute anoxic brain injury #Sputum culture positive for Pseudomonas, continuing on Zosyn #Worsening leukocytosis -Discussed and updated the family on her condition today and started him think about possibly considering comfort care measures and decide on this in the next 24 to 48 hours. -In the meantime continue ventilatory support, tried pressure control mode of m echanical ventilation did not seem to do well with pressure control; continue with volume assist-control -Unable to send patient for further diagnostic procedures because of her instability; would like a CT head and CT angiography of the chest heart patient unable to tolerate performing this test -Continue with dopamine drip at 0.5 mcg/kg/min, Nimbex at 3 mcg/kg/min, fentanyl 2 mcg/kg/h, propofol 60 mcg/kg/min -Worsening leukocytosis, WBCs this morning 23.2 was compared to 21.1 yesterday -Continue with Zosyn 3.375 g every 12 hours to cover for the positive Pseudomonas in the sputum culture -Continue to monitor leukocytosis (patient is on Decadron) 6 mg IVP every 6 hours and consider future antibiotic change if picture worsens -Discussed possibility of transfer for the patient undergo ECMO in outside facility -Continue to monitor CBC -Neurology consulted #Severe bradycardia with hypovolemic shock #Acute kidney injury secondary to ATN, on daily hemodialysis this admission #Severe acute hyperkalemia, resolved #Severe shock liver, improving however not fully resolved -Continue hemodialysis -Nephrology consulted #Recent right knee surgery #Recent urinary tract infection Chronic conditions #Hx of pulmonary hypertension #Hx of alpha-1 antitrypsin deficiency #Hx of nicotine dependence #Hx of essential hypertension #Morbid obesity #Degenerative joint disease #Chronic peripheral neuropathy #Chronic back pain #Hx of migraine cephalgia #Hx of depression #Hx of pulmonary hypertension GI prophylaxis: Protonix 40 mg daily DVT Prophylaxis: Lovenox 40 mg subq daily Dictation was produced using [employer] software. please excuse any grammatical, word or spelling errors. Objective - Vital Signs Vital signs: Vital Signs Temp 98.5 F 11/02/24 04:00 Pulse 78 11/02/24 08:30 Resp 33 H 11/02/24 07:10 BP 89/39 11/01/24 02:45 Pulse Ox 85 L 11/02/24 07:10 FiO2 100 11/02/24 08:30 Intake & Output 11/01/24 11/02/24 11/02/24 18:59 06:59 18:59 Intake Total 0745.649 8831.728 23 Output Total 25 20 0 Balance 7679.108 5478.728 23 Weight 189.9 kg Intake: IV 299 273 23 Piperacillin-Tazobactam 3 100 .375 gm In Sodium Chloride 0.9% 100 ml @ 25 mls/hr IVPB Q12H SUMEET Rx# :[id number] Pressure Bag 39 33 3 Sodium Chloride 0.9% 1, 260 140 20 000 ml @ 20 mls/hr IV . Q24H SUMEET Rx#:[id number] Intake, IV Titration 1187.778 9446.728 Amount Cisatracurium 200 mg In 351.682 188.985 Sodium Chloride 0.9% 180 ml @ 1 MCG/KG/MIN 8.709 mls/hr IV .[id number] SUMEET Rx #:[id number] DOPamine DRIP 800 mg In 23.341 10.433 Dextrose/Water 1 250ml. bag @ 1 MCG/KG/MIN 2.722 mls/hr IV .Q24H SUMEET Rx#: [id number] fentaNYL (PF) 2,500 mcg 250 451.900 In Sodium Chloride 0.9% 200 ml @ 2 MCG/KG/HR 29. 03 mls/hr IV .Q8H37M SUMEET Rx#:[id number] propofoL 1,000 mg In 542.485 560.410 Empty Bag 1 bag @ 15 MCG/ KG/MIN 13.064 mls/hr IV . Q7H40M SUMEET Rx#:[id number] Tube Feeding 240 220 Other 90 150 Output: Urine 25 20 0 Other: Voiding Method Indwelling Catheter Indwelling Catheter ABP, PAP, CO, CI - Last Documented Arterial Blood Pressure 119/59 - Labs CBC & Chem 7: 11/02/24 04:30 11/02/24 04:30 Labs: Abnormal Lab Results - Last 24 Hours (Table) 11/01/24 11/01/24 11/01/24 Range/Units 04:16 11:53 23:36 WBC (3.8-10.6) k/uL Hgb (11.4-16.0) gm/dL Hct (34.0-46.0) % RDW (11.5-15.5) % Neutrophils # (1.3-7.7) k/uL Lymphocytes # (1.0-4.8) k/uL ABG pH (7.35-7.45) ABG pCO2 (35-45) mmHg ABG pO2 (83-108) mmHg ABG Total CO2 (19-24) mmol/L ABG O2 Saturation (94-97) % Hemoglobin (11.4-16.0) gm/dL Sodium (137-145) mmol/L Potassium (3.5-5.1) mmol/L Chloride (98-107) mmol/L Carbon Dioxide (22-30) mmol/L BUN (7-17) mg/dL Creatinine (0.52-1.04) mg/dL POC Glucose (mg/dL) 112 H 111 H (70-110) mg/dL Calcium (8.4-10.2) mg/dL AST (14-36) U/L ALT (4-34) U/L Alkaline Phosphatase (38-126) U/L Total Protein (6.3-8.2) g/dL Albumin (3.5-5.0) g/dL Procalcitonin 2.88 H (0.02-0.50) ng/mL 11/02/24 11/02/24 11/02/24 Range/Units 04:30 04:30 04:53 WBC 23.2 H (3.8-10.6) k/uL Hgb 10.5 L (11.4-16.0) gm/dL Hct 33.4 L (34.0-46.0) % RDW 18.3 H (11.5-15.5) % Neutrophils # 21.2 H (1.3-7.7) k/uL Lymphocytes # 0.5 L (1.0-4.8) k/uL ABG pH 7.26 L (7.35-7.45) ABG pCO2 51 H (35-45) mmHg ABG pO2 57 L* (83-108) mmHg ABG Total CO2 25 H (19-24) mmol/L ABG O2 Saturation 84.4 L (94-97) % Hemoglobin 10.8 L (11.4-16.0) gm/dL Sodium 125 L (137-145) mmol/L Potassium 5.7 H (3.5-5.1) mmol/L Chloride 94 L (98-107) mmol/L Carbon Dioxide 20 L (22-30) mmol/L BUN 65 H (7-17) mg/dL Creatinine 3.94 H (0.52-1.04) mg/dL POC Glucose (mg/dL) (70-110) mg/dL Calcium 7.9 L (8.4-10.2) mg/dL AST 59 H (14-36) U/L ALT 1186 H (4-34) U/L Alkaline Phosphatase 132 H (38-126) U/L Total Protein 5.8 L (6.3-8.2) g/dL Albumin 3.0 L (3.5-5.0) g/dL Procalcitonin (0.02-0.50) ng/mL
--- NOTE | 2024-11-02 12:49 | P.PN ---
Subjective patient is seen for follow-up for acute kidney injury. Patient is sedated and on the ventilator. Started on hemodialysis on 10/26/2024. Patient is seen on hemodialysis. UF of about 3.5 L today. FiO2 remains at 100%. Minimal urine output. Objective - Vital Signs Vital signs: Vital Signs Temp 98.6 F 11/02/24 12:20 Pulse 78 11/02/24 12:20 Resp 33 H 11/02/24 12:20 BP 105/46 11/02/24 12:20 Pulse Ox 83 L 11/02/24 12:20 FiO2 100 11/02/24 12:18 Intake & Output 11/01/24 11/02/24 11/02/24 18:59 06:59 18:59 Intake Total 9357.257 1223.728 1115.212 Output Total 25 20 7400 Balance 9584.106 4151.728 -6284.788 Weight 189.9 kg Intake: IV 299 273 115 Piperacillin-Tazobactam 3 100 .375 gm In Sodium Chloride 0.9% 100 ml @ 25 mls/hr IVPB Q12H SUMEET Rx# :[id number] Pressure Bag 39 33 15 Sodium Chloride 0.9% 1, 260 140 100 000 ml @ 20 mls/hr IV . Q24H SUMEET Rx#:[id number] Intake, IV Titration 7510.765 5819.728 490.212 Amount Cisatracurium 200 mg In 351.682 188.985 189.421 Sodium Chloride 0.9% 180 ml @ 1 MCG/KG/MIN 8.709 mls/hr IV .[id number] SUMEET Rx #:[id number] DOPamine DRIP 800 mg In 23.341 10.433 19.643 Dextrose/Water 1 250ml. bag @ 1 MCG/KG/MIN 2.722 mls/hr IV .Q24H SUMEET Rx#: [id number] fentaNYL (PF) 2,500 mcg 250 451.900 In Sodium Chloride 0.9% 200 ml @ 2 MCG/KG/HR 29. 03 mls/hr IV .Q8H37M SUMEET Rx#:[id number] propofoL 1,000 mg In 542.485 560.410 281.148 Empty Bag 1 bag @ 15 MCG/ KG/MIN 13.064 mls/hr IV . Q7H40M SUMEET Rx#:[id number] Tube Feeding 240 220 80 Hemodialysis 400 Other 90 150 30 Output: Urine 25 20 0 Hemodialysis 3900 Hemodialysis Net Amount 3500 Other: Voiding Method Indwelling Catheter Indwelling Catheter Indwelling Catheter ABP, PAP, CO, CI - Last Documented Arterial Blood Pressure 101/54 - Exam patient is sedated and on the vent. Bilateral breath sounds are heard Examination of the heart S1 and S2 Abdomen is soft obese Examination of lower extremity shows edema 2+ bilaterally - Labs CBC & Chem 7: 11/02/24 04:30 11/02/24 04:30 Labs: Abnormal Lab Results - Last 24 Hours (Table) 11/01/24 11/01/24 11/02/24 Range/Units 04:16 23:36 04:30 WBC 23.2 H (3.8-10.6) k/uL Hgb 10.5 L (11.4-16.0) gm/dL Hct 33.4 L (34.0-46.0) % RDW 18.3 H (11.5-15.5) % Neutrophils # 21.2 H (1.3-7.7) k/uL Lymphocytes # 0.5 L (1.0-4.8) k/uL ABG pH (7.35-7.45) ABG pCO2 (35-45) mmHg ABG pO2 (83-108) mmHg ABG Total CO2 (19-24) mmol/L ABG O2 Saturation (94-97) % Hemoglobin (11.4-16.0) gm/dL Sodium (137-145) mmol/L Potassium (3.5-5.1) mmol/L Chloride (98-107) mmol/L Carbon Dioxide (22-30) mmol/L BUN (7-17) mg/dL Creatinine (0.52-1.04) mg/dL POC Glucose (mg/dL) 111 H (70-110) mg/dL Calcium (8.4-10.2) mg/dL AST (14-36) U/L ALT (4-34) U/L Alkaline Phosphatase (38-126) U/L Total Protein (6.3-8.2) g/dL Albumin (3.5-5.0) g/dL Procalcitonin 2.88 H (0.02-0.50) ng/mL 11/02/24 11/02/24 Range/Units 04:30 04:53 WBC (3.8-10.6) k/uL Hgb (11.4-16.0) gm/dL Hct (34.0-46.0) % RDW (11.5-15.5) % Neutrophils # (1.3-7.7) k/uL Lymphocytes # (1.0-4.8) k/uL ABG pH 7.26 L (7.35-7.45) ABG pCO2 51 H (35-45) mmHg ABG pO2 57 L* (83-108) mmHg ABG Total CO2 25 H (19-24) mmol/L ABG O2 Saturation 84.4 L (94-97) % Hemoglobin 10.8 L (11.4-16.0) gm/dL Sodium 125 L (137-145) mmol/L Potassium 5.7 H (3.5-5.1) mmol/L Chloride 94 L (98-107) mmol/L Carbon Dioxide 20 L (22-30) mmol/L BUN 65 H (7-17) mg/dL Creatinine 3.94 H (0.52-1.04) mg/dL POC Glucose (mg/dL) (70-110) mg/dL Calcium 7.9 L (8.4-10.2) mg/dL AST 59 H (14-36) U/L ALT 1186 H (4-34) U/L Alkaline Phosphatase 132 H (38-126) U/L Total Protein 5.8 L (6.3-8.2) g/dL Albumin 3.0 L (3.5-5.0) g/dL Procalcitonin (0.02-0.50) ng/mL Assessment and Plan Assessment: 1. Acute kidney injury secondary to ATN secondary to bradycardia, hypotension further worsened with the use of NSAIDs and diuretics. Baseline creatinine 0.7- 0.8 and 3.31 on admission. Oliguric. Started on hemodialysis October 26, 2024 via femoral dialysis catheter. No hydronephrosis noted on kidney ultrasound. 2. Hyperkalemia secondary to acute kidney injury, acidosis, NSAIDs, potassium supplementation. Improved. 3. Bradycardia secondary to hyperkalemia. Improved. 4. Metabolic acidosis secondary to acute kidney injury. Status post bicarb drip. Improved. 5. Shock liver. 6. Recent right knee surgery with subsequent fall. Will need further intervention in the future. 7. Hyponatremia secondary to acute kidney injury, hypervolemic. Also receiving some IV meds with hypotonic fluids. 8. Acute hypoxic respiratory failure. Intubated. Patient remains on 100% FiO2. There is consideration for ARDS Plan: Maintain daily dialysis with increased UF as tolerated. Continue with dopamine. Overall prognosis is guarded
[2024-11-02] MEDS: ARTIFICIAL TEARS OINTMENT 3.5 GM TUBE BOTH EYES PRN (13:13)
--- NOTE | 2024-11-02 14:11 | P.PN ---
Subjective Progress Note Date: 11/02/24 H&P Date: 10/26/24 This is a 54-year-old female with past medical history significant for recent knee surgery proximately within the last 3 months with fall postoperatively 1 week ago, osteoarthritis, treated for UTI outpatient last week with Macrobid, COPD, migraines, hypertension, osteoarthritis, morbid obesity, sleep apnea, anxiety, depression, nicotine dependence and multiple other medical issues brought into the ER via EMS with reports of confusion, hallucinations, hypoxia, hypotension. Family reports patient nauseated and dizzy since Saturday night. on EMS arrival, reported systolic blood pressure of 80s, O2 sats of 70% on room air, placed on nonrebreather, EKG reported severe bradycardia with heart rates in the 20s and 30s. ER reports ,on arrival patient was alert and oriented to person and place, reported she had taken an additional L[place]carr as well as an additional Flexeril for knee pain. Creatinine 3.24 on admission, currently at 3.3, baseline 0.7. Hyperkalemic cocktail administered for potassium at 8.6 , currently down to 6.3. EKG reported wide-complex bradycardia, junctional. ABGs reported pH of 7.14, pCO2 53, pO2 87, bicarb 18, total CO2 20 O2 sat 94 with a base excess of -11.1 on 70% FiO2. patient was intubated, taken to the [facility] for transvenous pacer, but spontaneously converted to sinus rhythm. Currently ventilator dependent with FiO2 100%/+8 with PEEP. Maintained on epinephrine and dopamine. Continues on bicarb drip. chest x-ray reported cardiomegaly, worsening pulmonary edema versus massive pneumonia ,antibiotics initiated. Hemo globin A1c 6.0. T. bili 2.2, AST 3715, ALT 4016, alk phos 155. Hepatitis panel in progress. troponin negative x 1. TSH 9.660, free T4 1.35. 10/27/2024 Vent dependent .hemodialysis initiated yesterday. Maintained on bicarb drip, acidosis improving, bicarb 32, discontinued. Continues on dopamine and epinephrine drips echo reporting normal LV function, RVSP 66. Chest x-ray reporting persistent moderate large amount airspace opacities throughout both lungs more on the right, similar. 10/28/2024 Vent dependent, yesterday vent settings of 100% FiO2 +12 of PEEP; today FiO2 100%/+15 of PEEP on pressure control. Lasix attempted yesterday, no improvement. Chest x-ray reporting cardiomegaly, ongoing interstitial and patchy opacities, continue small effusions with adjacent atelectasis and/or consolidation. Received hemodialysis yesterday and today. Renal function improving, bicarb 28, BUN 47, creatinine 2.51. remains on Nimbex, diprovan, dopamine and fentanyl drips. Calcium 7.5, received calcium gluconate. Worsening LFTs. Maintained on Zosyn, Decadron, sputum culture reporting Pse udomonas aeruginosa Tmax 99, WBC 11.2. Venous Doppler pending. 10/29/2024 ventilator dependent, maintained on 100% FiO2/+15 PEEP. Continues on Nimbex ,diprovan ,fentanyl, dopamine drips. Midodrine added to med regimen. Continues on Zosyn, nebulized bronchodilators, dexamethasone. Blood sugars better controlled.Afebrile, normal WBC. HD today. LFTs trending down. Albumin 2.9. 10/30/2024 unstable to travel off the floor for further imaging/studies. Remains vent dependent with FiO2 100%/+15 PEEP. Maintained on diprovan, Nimbex, dopamine, fentanyl drips.EEG reported abnormal, background slowing, moderate encephalopathy ; diffuse suppression likely due to medication -propofol .continues on daily hemodialysis. Continues on Zosyn for sputum positive with Pseudomonas aeruginosa. 11/02/24 remains vent dependent, FiO2 100%/post 15 of PEEP. maintained on Nimbex, diprovan, fentanyl, dopamine. Receiving hemodialysis. Remains unstable to travel for imaging, unable to tolerate pressure control mode, unable to lie flat related to significant desaturations reported. Objective - Vital Signs Vital signs: Vital Signs Temp 98.6 F 11/02/24 12:20 Pulse 78 11/02/24 13:00 Resp 33 H 11/02/24 13:00 BP 89/39 11/02/24 13:00 Pulse Ox 86 L 11/02/24 13:00 FiO2 100 11/02/24 12:45 Intake & Output 11/01/24 11/02/24 11/02/24 18:59 06:59 18:59 Intake Total 3882.103 7060.728 1376.212 Output Total 25 20 7405 Balance 1978.773 5969.728 6023.788 Weight 189.9 kg Intake: IV 299 273 166 Piperacillin-Tazobactam 3 100 25 .375 gm In Sodium Chloride 0.9% 100 ml @ 25 mls/hr IVPB Q12H SUMEET Rx# :[id number] Pressure Bag 39 33 21 Sodium Chloride 0.9% 1, 260 140 120 000 ml @ 20 mls/hr IV . Q24H SUMEET Rx#:[id number] Intake, IV Titration 2921.747 0482.728 590.212 Amount Cisatracurium 200 mg In 351.682 188.985 189.421 Sodium Chloride 0.9% 180 ml @ 1 MCG/KG/MIN 8.709 mls/hr IV .[id number] SUMEET Rx #:[id number] DOPamine DRIP 800 mg In 23.341 10.433 19.643 Dextrose/Water 1 250ml. bag @ 1 MCG/KG/MIN 2.722 mls/hr IV .Q24H SUMEET Rx#: [id number] fentaNYL (PF) 2,500 mcg 250 451.900 In Sodium Chloride 0.9% 200 ml @ 2 MCG/KG/HR 29. 03 mls/hr IV .Q8H37M SUMEET Rx#:[id number] propofoL 1,000 mg In 542.485 560.410 381.148 Empty Bag 1 bag @ 15 MCG/ KG/MIN 13.064 mls/hr IV . Q7H40M SUMEET Rx#:[id number] Tube Feeding 240 220 130 Hemodialysis 400 Other 90 150 90 Output: Urine 25 20 5 Hemodialysis 3900 Hemodialysis Net Amount 3500 Other: Voiding Method Indwelling Catheter Indwelling Catheter Indwelling Catheter ABP, PAP, CO, CI - Last Documented Arterial Blood Pressure 144/58 - Exam PHYSICAL EXAM: VITAL SIGNS: As above GENERAL: Intubated ,sedated and on paralytics. HEENT: Normocephalic, atraumatic ,Conjunctivae normal. NECK: Supple, No JVD. CARDIOVASCULAR: S1, S2 regular.No murmur. RESPIRATION: Diminished, scattered rhonchi throughout ABDOMEN: Soft, nontender,obese, nondistended ,positive Bowel sounds. LEGS: Positive edema NERVOUS SYSTEM: unable to evaluate as patient sedated , intubated and on paralytic Skin: Warm and dry, no rash - Labs CBC & Chem 7: 11/02/24 04:30 11/02/24 04:30 Labs: Abnormal Lab Results - Last 24 Hours (Table) 11/01/24 11/01/24 11/02/24 Range/Units 04:16 23:36 04:30 WBC 23.2 H (3.8-10.6) k/uL Hgb 10.5 L (11.4-16.0) gm/dL Hct 33.4 L (34.0-46.0) % RDW 18.3 H (11.5-15.5) % Neutrophils # 21.2 H (1.3-7.7) k/uL Lymphocytes # 0.5 L (1.0-4.8) k/uL ABG pH (7.35-7.45) ABG pCO2 (35-45) mmHg ABG pO2 (83-108) mmHg ABG Total CO2 (19-24) mmol/L ABG O2 Saturation (94-97) % Hemoglobin (11.4-16.0) gm/dL Sodium (137-145) mmol/L Potassium (3.5-5.1) mmol/L Chloride (98-107) mmol/L Carbon Dioxide (22-30) mmol/L BUN (7-17) mg/dL Creatinine (0.52-1.04) mg/dL POC Glucose (mg/dL) 111 H (70-110) mg/dL Calcium (8.4-10.2) mg/dL AST (14-36) U/L ALT (4-34) U/L Alkaline Phosphatase (38-126) U/L Total Protein (6.3-8.2) g/dL Albumin (3.5-5.0) g/dL Procalcitonin 2.88 H (0.02-0.50) ng/mL 11/02/24 11/02/24 Range/Units 04:30 04:53 WBC (3.8-10.6) k/uL Hgb (11.4-16.0) gm/dL Hct (34.0-46.0) % RDW (11.5-15.5) % Neutrophils # (1.3-7.7) k/uL Lymphocytes # (1.0-4.8) k/uL ABG pH 7.26 L (7.35-7.45) ABG pCO2 51 H (35-45) mmHg ABG pO2 57 L* (83-108) mmHg ABG Total CO2 25 H (19-24) mmol/L ABG O2 Saturation 84.4 L (94-97) % Hemoglobin 10.8 L (11.4-16.0) gm/dL Sodium 125 L (137-145) mmol/L Potassium 5.7 H (3.5-5.1) mmol/L Chloride 94 L (98-107) mmol/L Carbon Dioxide 20 L (22-30) mmol/L BUN 65 H (7-17) mg/dL Creatinine 3.94 H (0.52-1.04) mg/dL POC Glucose (mg/dL) (70-110) mg/dL Calcium 7.9 L (8.4-10.2) mg/dL AST 59 H (14-36) U/L ALT 1186 H (4-34) U/L Alkaline Phosphatase 132 H (38-126) U/L Total Protein 5.8 L (6.3-8.2) g/dL Albumin 3.0 L (3.5-5.0) g/dL Procalcitonin (0.02-0.50) ng/mL Assessment and Plan Assessment: Bradycardia, severe, currently sinus Hyperkalemia secondary to NSAIDs, potassium and Hypotension, hypovolemic shock, maintained on dopamine, status post epinephrine Acute on chronic hypoxic respiratory failure, wears 2 L nasal cannula at home, mechanical ventilator dependent Sputum positive with Pseudomonas Acute renal failure secondary to ATN, related to all the above, requiring emergent hemodialysis Hyponatremia secondary to the above, hypervolemic Shock liver Metabolic acidosis, maintained on bicarb drip Altered mental status, secondary to hypoxic and metabolic encephalopathy Possible acute anoxic brain injury Recent knee surgery, status post fall postoperative Recent UTI, treated outpatient with Macrobid last week Alpha-1 antitrypsin deficiency, history of Obstructive sleep apnea, wears CPAP at night History of pulmonary hypertension Ongoing nicotine dependence, marijuana edibles, and history of vaping Hypertension Hyperlipidemia Osteoarthritis Morbid obesity, BMI 55 Anxiety Depression Chronic peripheral neuropathy Chronic back pain History of Migraines, chronic Plan: Continue current medications and ,monitoring and symptomatic treatment. ICU/vent management as per water supervisor. HD daily as per nephrology. Maintain tube feeds. neurology following. Comfort care addressed with family over the weekend , mother at bedside and request to discuss further today with water supervisor .prognosis guarded given multiple complex medical issues. The impression and plan of care has been dictated as directed. : I performed a history and examination of this patient, discussed the same with the dictator. I agree with the dictator's note ,documented as a scribe. Any additional findings or plans will be noted.
--- NOTE | 2024-11-02 16:29 | P.PN ---
Subjective Progress Note Date: 11/02/24 I am following up with the patient and she is accompanied with her mother. Patient continues to be unstable for transfer for imaging. She continues to be IV Nimbex, Propofol and Fentanyl drip. Objective - Vital Signs Vital signs: Vital Signs Temp 98.6 F 11/02/24 12:20 Pulse 72 11/02/24 16:06 Resp 33 H 11/02/24 15:00 BP 89/39 11/02/24 13:00 Pulse Ox 84 L 11/02/24 15:00 FiO2 100 11/02/24 16:06 Intake & Output 11/01/24 11/02/24 11/02/24 18:59 06:59 18:59 Intake Total 8084.331 2618.728 1878.444 Output Total 25 20 7405 Balance 1574.253 4730.728 -5526.556 Weight 189.9 kg Intake: IV 299 273 250 Piperacillin-Tazobactam 3 100 100 .375 gm In Sodium Chloride 0.9% 100 ml @ 25 mls/hr IVPB Q12H SUMEET Rx# :[id number] Pressure Bag 39 33 30 Sodium Chloride 0.9% 1, 260 140 120 000 ml @ 20 mls/hr IV . Q24H SUMEET Rx#:[id number] Intake, IV Titration 4897.128 7781.728 948.444 Amount Cisatracurium 200 mg In 351.682 188.985 189.421 Sodium Chloride 0.9% 180 ml @ 1 MCG/KG/MIN 8.709 mls/hr IV .[id number] SUMEET Rx #:[id number] DOPamine DRIP 800 mg In 23.341 10.433 31.640 Dextrose/Water 1 250ml. bag @ 1 MCG/KG/MIN 2.722 mls/hr IV .Q24H SUMEET Rx#: [id number] fentaNYL (PF) 2,500 mcg 250 451.900 250 In Sodium Chloride 0.9% 200 ml @ 2 MCG/KG/HR 29. 03 mls/hr IV .Q8H37M SUMEET Rx#:[id number] propofoL 1,000 mg In 542.485 560.410 477.383 Empty Bag 1 bag @ 15 MCG/ KG/MIN 13.064 mls/hr IV . Q7H40M SUMEET Rx#:[id number] Tube Feeding 240 220 220 Hemodialysis 400 Other 90 150 60 Output: Urine 25 20 5 Hemodialysis 3900 Hemodialysis Net Amount 3500 Other: Voiding Method Indwelling Catheter Indwelling Catheter Indwelling Catheter ABP, PAP, CO, CI - Last Documented Arterial Blood Pressure 101/43 - Exam General: Lying in bed and does not appear in acute distress. Lung: Intubated on a ventilator. Neuro: Very limited. Is on IV Nimbex, IV Propofol and IV Fentanyl. Patient is comatose. GCS 3 (E1, VT1, M1). Pupil, right is 3mm and reactive to light. Left eye is closed with tape. No cortical function noted at this time and limited because of sedation and is on high Vent Setting (A/C 33). Motor: Strength is limited in assessment. Decrease tone throughout. No spontaneous movement. Plantars: Mute bilaterally. Some of the workup during this hospital visit consisted of: Creatnine is trending down. Her AST is trending up as high as 7474-->5400 ALT is also trending up as high as 7846-->8772. POC glucose was low at 60 yesterday and it has been in the range of 100s to 300s. Potassium was as high as 8.6 on presentation and now it is currently normalized. Routine EEG: Is abnormal. The background slowing is suggestive of moderate encephalopathy. There is no focal slowing, OptiForm discharge or seizure on the EEG. The diffuse suppression is likely due to medication effect (IV Propofol). - Labs CBC & Chem 7: 11/02/24 04:30 11/02/24 04:30 Labs: Abnormal Lab Results - Last 24 Hours (Table) 11/01/24 11/02/24 11/02/24 Range/Units 23:36 04:30 04:30 WBC 23.2 H (3.8-10.6) k/uL Hgb 10.5 L (11.4-16.0) gm/dL Hct 33.4 L (34.0-46.0) % RDW 18.3 H (11.5-15.5) % Neutrophils # 21.2 H (1.3-7.7) k/uL Lymphocytes # 0.5 L (1.0-4.8) k/uL ABG pH (7.35-7.45) ABG pCO2 (35-45) mmHg ABG pO2 (83-108) mmHg ABG Total CO2 (19-24) mmol/L ABG O2 Saturation (94-97) % Hemoglobin (11.4-16.0) gm/dL Sodium 125 L (137-145) mmol/L Potassium 5.7 H (3.5-5.1) mmol/L Chloride 94 L (98-107) mmol/L Carbon Dioxide 20 L (22-30) mmol/L BUN 65 H (7-17) mg/dL Creatinine 3.94 H (0.52-1.04) mg/dL POC Glucose (mg/dL) 111 H (70-110) mg/dL Calcium 7.9 L (8.4-10.2) mg/dL AST 59 H (14-36) U/L ALT 1186 H (4-34) U/L Alkaline Phosphatase 132 H (38-126) U/L Total Protein 5.8 L (6.3-8.2) g/dL Albumin 3.0 L (3.5-5.0) g/dL 11/02/24 Range/Units 04:53 WBC (3.8-10.6) k/uL Hgb (11.4-16.0) gm/dL Hct (34.0-46.0) % RDW (11.5-15.5) % Neutrophils # (1.3-7.7) k/uL Lymphocytes # (1.0-4.8) k/uL ABG pH 7.26 L (7.35-7.45) ABG pCO2 51 H (35-45) mmHg ABG pO2 57 L* (83-108) mmHg ABG Total CO2 25 H (19-24) mmol/L ABG O2 Saturation 84.4 L (94-97) % Hemoglobin 10.8 L (11.4-16.0) gm/dL Sodium (137-145) mmol/L Potassium (3.5-5.1) mmol/L Chloride (98-107) mmol/L Carbon Dioxide (22-30) mmol/L BUN (7-17) mg/dL Creatinine (0.52-1.04) mg/dL POC Glucose (mg/dL) (70-110) mg/dL Calcium (8.4-10.2) mg/dL AST (14-36) U/L ALT (4-34) U/L Alkaline Phosphatase (38-126) U/L Total Protein (6.3-8.2) g/dL Albumin (3.5-5.0) g/dL Assessment and Plan Assessment: This is a 54-year-old woman with history of COPD on home oxygen who the past couple days she has been confused hallucinating and it seems that according to the her oxygen saturation at home was as low as 70% and the heart rate was in the 20s. In our facility oxygen saturation is in the 80s, bradycardic in the 30s currently she is tachypneic. Also has hypotension as low as 60s over 30s. On examination patient has significantly dilated pupil over the right compared to the left which is sluggishly reactive to light. She is unstable for imaging of the brain. States that she has significant hyperkalemia Altered mental status seems due to hypoxic and metabolic encephalopathy. Possible anoxic encephalopathy vs ?brain injury due to her severe hypoxia. Her anisocoria (dilated right pupil is better today and is close same size as left). Examination is very limited since is on Nimbex and Sedation (IV Propofol and Fentanyl) Acute on chronic hypoxic respiratory failure Severe bradycardia with hypovolemic shock Acute kidney injury Severe acute hyperkalemia Liver shock Recent history of knee surgery History of pulmonary hypertension History of migraine History of nicotine dependence Plan: Once the patient is more stable recommend to pursue with CT of the head. Once the patient is more stable recommend holding sedation and paralytic for better neurological examination Nephrology is on board and patient had dialysis. Will defer the rest of the medical management to primary and other specialist Patient condition is critical. Plan discussed with patient's mother who is at bedside. Time with Patient: Less than 30
[2024-11-02 16:54] VITALS: BMI 71.8
[2024-11-02 16:57] LABS: ABG Base Excess -2.8 mmol/L; ABG HCO3 24 mmol/L (21-25); ABG PCO2 52 mmHg (35-45); ABG PH 7.28 (7.35-7.45); ABG PO2 64 mmHg (83-108); ABG TCO2 26 mmol/L (19-24); Allen Test Performed? Yes
[2024-11-02 17:57] LABS: Glucose,Whole Blood 108 mg/dL (70-110)
[2024-11-03 00:10] LABS: Glucose,Whole Blood 122 mg/dL (70-110)
[2024-11-03 05:22] LABS: Glucose,Whole Blood 113 mg/dL (70-110)
[2024-11-03 05:39] LABS: Anisocytosis Slight; Basophils % (A) 0 %; Eosinophils # (A) 0.1 k/uL (0-0.7); Eosinophils % (A) 1 %; HCT 35.7 % (34.0-46.0); HGB 11.1 gm/dL (11.4-16.0); Hypochromasia Marked; Lymphocytes # (A) 0.5 k/uL (1.0-4.8); Lymphocytes % (A) 2 %; MCH 26.2 pg (25.0-35.0); MCV 84.5 fL (80.0-100.0); Mean Platelet Volume 10.4; Microcytosis Slight; Monocytes # (A) 0.8 k/uL (0-1.0); Monocytes % (A) 4 %; Neutrophils # (A) 21.8 k/uL (1.3-7.7); Neutrophils % (A) 93 %; Platelet Count 262 k/uL (150-450); RBC 4.23 m/uL (3.80-5.40); RDW 18.3 % (11.5-15.5); WBC 23.4 k/uL (3.8-10.6)
[2024-11-03 05:47] LABS: Anion Gap 13 mmol/L; Blood Urea Nitrogen 56 mg/dL (7-17); Calcium 8.3 mg/dL (8.4-10.2); Carbon Dioxide 19 mmol/L (22-30); Chloride 93 mmol/L (98-107); Glucose 102 mg/dL (74-99); Potassium 5.5 mmol/L (3.5-5.1); Sodium 125 mmol/L (137-145)
[2024-11-03 05:53] LABS: African American GFR (CKD) 16 (>60 ml/min/1.73 sqM); Non-African American GFR(CKD) 13 (>60 ml/min/1.73 sqM)
[2024-11-03 06:05] LABS: ABG Base Excess -4.6 mmol/L; ABG HCO3 23 mmol/L (21-25); ABG Oxygen Saturation 88.8 % (94-97); ABG PCO2 54 mmHg (35-45); ABG PH 7.24 (7.35-7.45); ABG PO2 65 mmHg (83-108); ABG TCO2 25 mmol/L (19-24); Allen Test Performed? Yes
--- NOTE | 2024-11-03 09:51 | P.PN ---
Subjective Progress Note Date: 11/03/24 Acute on chronic hypoxic respiratory failure and acute hypercapnic respiratory failure with hypovolemic shock and severe bradycardia This is a 54-year-old female with history of multiple medical problems including COPD, chronic pain syndrome, dyslipidemia, bipolar disorder, hypertension, patient was brought into the ER yesterday mostly with change in mental status and according to family patient has been confused for the last 2 days, patient has been hallucinating and upon arrival to the ER she was noted to be severely bradycardic and hypotensive. Patient remained bradycardic, patient was seen by cardiology on consultation for her bradycardia, patient was taken to the cardiac Executive Administrative Assistant, her blood pressure was 120 on norepinephrine, decision was made to hold her pacemaker insertion. Previous cardiac workup from previous records has shown preserved systolic function and no documented ischemic heart disease. When labs were reviewed, patient was noted to have hyperkalemia and acute renal failure, shock liver profile, patient was intubated in the ER, she was eventually transferred to the ICU after she went to cardiac cath. But again pacemaker insertion was placed on hold. Patient is now intubated mechanically ventilated, she is on assist-control rate of 22 tidal volume 500 FiO2 100% and PEEP of 8 ABG showed a pO2 of 87 pCO2 53 pH of 7.14, her rate was increased to 26, patient received 1 amp of bicarb, and she was already on bicarb drip. Patient is on multiple drips including dopamine at 10 mcg/kg/min, propofol at 45 mg/kg/min Versed which I have discontinued 3 mg/h patient is also receiving epinephrine at 0.12 mcg/kg/min receiving 3 A of bicarb in D5W at 200 cc/h patient is hyperkalemic and follow-up sodium remains above 6, although the patient received the hyperkalemia protocol. Her initial potassium was 8.6 on her initial presentation. Patient already had a hemodialysis catheter placed by vascular surgery in the left groin, and she has a right IJ triple-lumen cathete r. I went ahead and placed a right radial arterial line. Patient is scheduled to undergo hemodialysis today, patient is not responsive to any stimuli except deep painful stimuli noted while I was placing an arterial line, patient withdraws to painful stimuli/needlestick. Pupils are dilated and sluggishly reactive. Looking back at her history patient had total knee arthroplasty 3 months ago and she had a fall about a week ago may have sustained head injury however CT of the brain is pending patient is to be seen by neurology on consultation today. And she is being seen by many consultants including nephrology and cardiology. Overall picture is extremely poor and guarded. And the patient is critically ill. Blood sugars are running high as 336 liver enzymes are elevated including a bilirubin of 2.2 AST of 3715 ALT of 4016 and alkaline phosphatase of 155 Patient seen today on 10/27/2024, patient remains in the ICU, intubated and mechanically ventilated sedated and paralyzed. Patient developed worsening pulmonary edema over the last 24 hours, hence she required higher FiO2 of 100% higher PEEP of 12 and she remains marginal as far as oxygenation is concerned. Patient is undergoing hemodialysis today no fluid was removed yesterday, and nephrology is planning to remove only 500 cc of fluid today. Patient remains on dopamine at 10 mcg/kg/min epinephrine at 0.02 mcg/kg/min Fentanyl at 2 mcg/kg/h propofol at 75 mcg/kg/min remains on Nimbex at 1 mcg/kg per minute and was suppo sed to have a CT of the brain yesterday, however the portion was relatively unstable could not have the CT of the brain done yesterday mostly because of arrhythmia and hypotension had to be brought back up to the ICU and she had to be paralyzed. Overall condition is not promising, actually her condition seems to be worse today compared to yesterday. Patient was seen by neurology on consultation still entertaining the possibility of anoxic brain injury due to severe hypoxia. The patient has anisocoria with right pupil larger than the left pupil full adequate neurological exam could not be fully done mostly because of the fact the patient is on Nimbex Fentanyl and propofol. Patient could not come off Nimbex mostly because could not be ventilated yesterday in spite of multiple sedatives including propofol and fentanyl. These were relatively high doses. She was very asynchronous with the ventilator, breathing over 40/min, had to be given Nimbex otherwise could not ventilate the patient. Today continues to have high peak airway pressure in the range of 40 high plateau pressures in the range of 34, and she has marginal oxygenation chest x- ray showed pulmonary edema underlying aspiration pneumonia is not entirely ruled out hence the patient remains on antibiotics empirically and she still receiving diuretics she is also on hemodialysis because she had complete renal shutdown on this admission. Her WBC count is 11.3 hemoglobin is 11.4 her ABG today showed a pO2 of 74 pCO2 72 pH of 7.26 basic metabolic profile showed potassium of 4.9 BUN of 82 creatinine 2.77 AST is 7474 ALT is 7846 worse today compared to yesterday. This is a picture of shock liver to mention the patient presented with acute tubular necrosis and acute kidney injury. Severe metabolic acidosis and severe hyperkalemia leading to bradycardia hypotension, cardiogram showed good LV function today, ejection fraction of 60 to 65% right-sided pressures are in the range of 66. Patient was seen today on 10/28/2024, remains in the ICU, remains intubated and mechanically ventilated. Patient is on assist-control rate of 3 0 tidal volume 400 FiO2 100% and PEEP of 15. However considering her relatively high peak airway pressure and plateau pressures I switched the patient to a pressure control mode of mechanical ventilation with PI of 23 TI 0.7 rate remains 33 and PEEP remains at 15. ABG earlier today showed a pO2 of 54 pCO2 50 pH of 7.35. Patient remains on Decadron remains on Zosyn, sputum is positive for Pseudomonas aeruginosa patient remains extremely oliguric 5 to 10 cc/h. He did not improve with Lasix yesterday. Remains on dialysis and she will have dialysis again today. Did not do a CT of the brain and could not do a CT of the chest mostly because of her instability. Recommending a venous Doppler to be done today. Time patient remains on Nimbex at 2 mcg/kg/min and dopamine 7.5 mcg/kg/min and I am cutting it down to 5 fentanyl at 2 mcg/kg/h propofol at 65 mcg/kg/min he is off epinephrine. Could use norepinephrine if necessary for low blood pressure. Right now she is only on dopamine which is to be tapered down to a renal perfusion dose if possible. This x-ray continues to show cardiomegaly and evidence of pulmonary edema, small bilateral pleural effusions and atelectasis. WBC count is 11.2 hemoglobin 11.9, sodium 124 potassium 6.6 enzymes remain elevated. Profile is abnormal with a BUN of 71 creatinine 3.20 patient is undergoing hemodialysis again today Seen today on 10/29/2024, patient remains in the ICU intubated mechanically ventilated sedated and paralyzed patient is on assist-control rate of 33 tidal volume 400 FiO2 100% and PEEP of 15 ABG showed a pO2 of 59 pCO2 51 pH of 7.32. Patient is having another hemodialysis today and the plan is to remove 2.5 L today. Patient remains on Nimbex at 2 mcg/kg/min and she also on vital HP at 20 cc/h dopamine at 2 mcg/kg/min Fentanyl at 2 mcg/kg/kg/h propofol at 65 mg/kg/min and IV fluid at KVO. Chest x-ray is basically about the same continues to show evidence of pulmonary edema and bilateral pleural effusion her labs showed low sodium of 125, bicarb is 24 BUN is 63 creatinine 3.50 liver enzymes are impro ving with ALT down to 6491, AST is down to 2071 venous Doppler of lower extremities could not be optimal because of her legs condition and swelling as well as body habitus, could not send the patient back down for CT angiogram of the chest and for CT of the head patient had some sort of head trauma, I am afraid to place patient empirically on heparin, and I am yet to stabilize the patient to have a CT of the head. Her clinical condition is extremely marginal at best, and I prefer not to send her down for CT of the chest and CT of the head at this point EEG did show evidence of moderate encephalopathy and I believe the patient must have sustained some significant anoxic brain injury Patient was seen today on 10/30/2024, remains in the ICU, intubated and mechanically ventilated. On assist-control rate of 33 tidal volume 400 FiO2 100% PEEP of 15 ABG showed a pO2 of 71 pCO2 46 pH of 7.36. Patient is having more hemodialysis today, and the plan is to remove 3 L of fluids. Patient remai ns on Demadex at 1 mcg/kg/min, dopamine at 0.5 mcg/kg/min Fentanyl at 2 mg/kg/h propofol 65 mcg/kg/min. Patient remains empirically on Zosyn much of the major change noted in the last 24 hours, patient desaturates easily as soon as she goes down to flat position. Hence I am reluctant to send the patient down for CT of the brain and CT of the chest. Mother is at bedside and she was updated on her condition WBC count is 7.7 hemoglobin 10.7 sodium is 126 potassium 4.9 BUN is 57 creatinine 3.54 chest x-ray continues to show pleural effusions and pulmonary edema Patient was seen today on 10/31/2024, patient remains in the ICU, intubated and mechanically ventilated, she is on assist-control rate of 33 tidal volume 400 FiO2 100% and PEEP of 15 ABG remains marginal with a pCO2 of 66 pCO2 50 pH of 7.33 vu on Nimbex at 2 mcg/kg/min dopamine at 1 mcg/kg/min propofol at 65 mg/kg/min IV fluids at KVO vital HP at 20 patient remains on Zosyn for positive Pseudomonas in the sputum. Remains on Lovenox. Patient is also on fentanyl at 2 mcg/kg/h. X-ray continues show evidence of pulmonary edema, her overall clinical condition remains very poor, remains relatively unstable and she could not lay flat to have CT of the brain and CT angiogram of the chest. Undergoing daily hemodialysis. Chest x-ray is not showing any significant improvement in spite of daily dialysis. Count is 11.4 hemoglobin 10.2 sodium remains low at 126 platelets 57 creatinine 3.23, bicarb is 23 her enzymes are improving AST down to 77-77 and ALT is 2947 alkaline phosphatase 178 albumin is 2.9 Reevaluate today on 11/01/2024, patient remains in the ICU, there has not been any significant change in the last few days and her overall clinical status except improvement in her liver profile. Patient remains intubated and mechanically ventilated, remains on assist-control rate of 33 tidal volume 400 FiO2 100% and PEEP of 15 ABG remains marginal with a pO2 of 59 pCO2 50 pH of 7.32 patient may get hemodialysis today. Remains on antibiotics empirically she is on Zosyn she had Pseudomonas in her sputum and that is being addressed. Patient continues to have minimal urine output/oliguric 30 cc of urine output in the last 12 hours remains on Nimbex at 3 mcg/kg/min propofol at 65 mcg/kg/min and she is also on vital sleep formula for nutritional support . Family is at bedside, discussed the fact that the patient is not showing any improvement also discussed the fact that the patient is not in a position where we could safely perform CT of the head and CT angiogram of the chest. Patient was given a trial of pressure control mode of mechanical ventilation because of her peak airway pressures however the volumes went down significantly and could not maintain adequate volumes and the patient was noted to desaturate with pressure control. This went back to volume control mode of mechanical ventilation. Chest x-ray continues to show evidence of pulmonary edema, underlying infection/pneumonia is not entirely ruled out but felt to be less likely considering her presentation. WBC count today is 21.1 hemoglobin 10.6 sodium 127 BUN is 49 creatinine 2.93 11/02/24 - Patient seen at bedside today, remaining in ICU, without any significant change overnight/over the past few days. Patient remains intubated mechanically ventilated on assist control with a tidal volume of 410, rate of 33, FiO2 of 100%, with a PEEP of 15. ABG shows pO2 57, pCO2 51, pH 7.26. Patient scheduled to receive hemodialysis today. Patient has remained on antibiotics decrease empirically with Zosyn as she had a positive sputum culture for Pseudomonas, however WBCs shown to be 23.2 this morning, increased from 21.1 yesterday. Patient continues to make minimal urine ~20 cc over the last 12 hours. Patient remains on dopamine drip of 0.5 mcg/kg/min, Nimbex 3 mcg/kg/min, fentanyl 2 mcg/kg/h, propofol 65 mcg/kg/min receiving 20 cc/h of normal saline and remains on Zosyn 3.375 g every 12 hours. Patient's mother remains at bedside, discussed with her about the patient has shown minimal improvement and continue to discuss how the patient is not in a position where we can safely perform a CT of the head and a CT angiogram of the chest, which have been discussed over the past few days. Chest x-ray showed evidence of pulmonary edema, however underlying infection/pneumonia not entirely ruled out. Discussion was had with the patient's mother and the patient care team for the possibility of transfer for the patient to undergo ECMO, which is to be explored over the next day or so. 11/03/24 - Patient seen at bedside today, remaining in the ICU, without any significant overnight changes. Patient remains intubated mechanically ventilated on assist-control with tidal volume of 400, rate of 33, FiO2 from 100%, with PEEP of 18. ABG shows PaO2 65, pCO2 54, pH 7.24. Patient is scheduled to receive emergent hemodialysis this morning, and following that the patient is to be transferred to [facility] after being accepted for admission to receive higher level of critical care with ECMO. She continues to receive Zosyn for positive sputum culture showing Pseudomonas. WBCs are remained relatively stable at 23.4. Patient continues to make minimal urine, ~10 cc over the past 12 hours. Patient remains on dopamine drip at 1.8 mcg/kg/min, Nimbex 10 mcg/kg/min, fentanyl 2 mcg/kg/h, and propofol 65 mcg/kg/min. Patient receiving midodrine 10 mg 3 times daily. REVIEW OF SYSTEMS: Patient is currently intubated and mechanically ventilated. PHYSICAL EXAMINATION: GENERAL: 55-year-old female intubated, mechanically ventilated, unresponsive to any stimuli except deep painful stimuli/needlesticks. Patient remains on Nimbex, propofol, fentanyl, and dopamine HEENT: Subconjunctival swelling is noted, however improving. Normocephalic, atraumatic. CARDIOVASCULAR: S1 and S2 present. No murmurs, rubs, or gallops. PULMONARY: Diminished breath sounds bilaterally. Coarse breath sounds in all lung [place]. ABDOMEN: Morbidly obese. Soft, nontender, normoactive bowel sounds, with some distention. MUSCULOSKELETAL: No joint swelling or deformity. EXTREMITIES: Trace bipedal edema noted. Bruising and swelling noted of the right knee. Diminished distal pulses. NEUROLOGICAL: Patient is intubated, sedated, paralyzed. SKIN: No rashes. Assessment and plan #Acute on chronic proximal respiratory failure (maintained on 2 L nasal cannula at home) #Acute hypercapnic respiratory failure #Acute metabolic and respiratory acidosis #Severe ARDS #Possible acute anoxic brain injury #Sputum culture positive for Pseudomonas, continuing on Zosyn #Worsening leukocytosis -Discussed and updated the family on her condition today and started him think about possibly considering comfort care measures and decide on this in the next 24 to 48 hours. -In the meantime continue ventilatory support, tried pressure control mode of mechanical ventilation did not seem to do well with pressure control; continue with volume assist-control -Unable to send patient for further diagnostic procedures because of her instability; would like a CT head and CT angiography of the chest heart patient unable to tolerate performing this test -Continue with dopamine drip at 0.5 mcg/kg/min, Nimbex at 3 mcg/kg/min, fentanyl 2 mcg/kg/h, propofol 60 mcg/kg/min -Worsening leukocytosis, WBCs this morning 23.2 was compared to 21.1 yesterday -Continue with Zosyn 3.375 g every 12 hours to cover for the positive Pseudomonas in the sputum culture -Continue to monitor leukocytosis (patient is on Decadron) 6 mg IVP every 6 hours and consider future antibiotic change if picture worsens -Discussed possibility of transfer for the patient undergo ECMO in outside facility -Patient to be transfered today following emergent dialysis this AM; transferring to [facility] to receive [facility] -Continue to monitor CBC -Neurology consulted #Severe bradycardia with hypovolemic shock #Acute kidney injury secondary to ATN, on daily hemodialysis this admission #Severe acute hyperkalemia, resolved #Severe shock liver, improving however not fully resolved -Continue hemodialysis -Nephrology consulted #Recent right knee surgery #Recent urinary tract infection Chronic conditions #Hx of pulmonary hypertension #Hx of alpha-1 antitrypsin deficiency #Hx of nicotine dependence #Hx of essential hypertension #Morbid obesity #Degenerative joint disease #Chronic peripheral neuropathy #Chronic back pain #Hx of migraine cephalgia #Hx of depression #Hx of pulmonary hypertension GI prophylaxis: Protonix 40 mg daily DVT Prophylaxis: Lovenox 40 mg subq daily Dictation was produced using [employer] dictation software. please excuse any grammatical, word or spelling errors. Objective - Vital Signs Vital signs: Vital Signs Temp 98.0 F 11/03/24 08:00 Pulse 70 11/03/24 08:10 Resp 33 H 11/03/24 08:10 BP 89/39 11/03/24 07:10 Pulse Ox 85 L 11/03/24 08:10 FiO2 40 11/03/24 08:00 Intake & Output 11/02/24 11/03/24 11/03/24 18:59 06:59 18:59 Intake Total 2283.444 1716.638 192 Output Total 7405 10 0 Balance -5121.556 1706.638 192 Weight 189.9 kg 189.2 kg Intake: IV 301 273 26 Piperacillin-Tazobactam 3 145 120 .375 gm In Sodium Chloride 0.9% 100 ml @ 25 mls/hr IVPB Q12H SUMEET Rx# :[id number] Pressure Bag 36 33 6 Sodium Chloride 0.9% 1, 120 120 20 000 ml @ 20 mls/hr IV . Q24H SUMEET Rx#:[id number] Intake, IV Titration 4031.661 6292.638 100 Amount Cisatracurium 200 mg In 389.421 175.051 Sodium Chloride 0.9% 180 ml @ 1 MCG/KG/MIN 8.709 mls/hr IV .[id number] SUMEET Rx #:[id number] DOPamine DRIP 800 mg In 31.640 30.304 Dextrose/Water 1 250ml. bag @ 1 MCG/KG/MIN 2.722 mls/hr IV .Q24H SUMEET Rx#: [id number] fentaNYL (PF) 2,500 mcg 250 477.543 In Sodium Chloride 0.9% 200 ml @ 2 MCG/KG/HR 29. 03 mls/hr IV .Q8H37M SUMEET Rx#:[id number] propofoL 1,000 mg In 577.383 454.740 100 Empty Bag 1 bag @ 15 MCG/ KG/MIN 13.064 mls/hr IV . Q7H40M SUMEET Rx#:[id number] Tube Feeding 244 216 36 Hemodialysis 400 Other 90 90 30 Output: Urine 5 10 0 Hemodialysis 3900 Hemodialysis Net Amount 3500 Other: Voiding Method Indwelling Catheter Indwelling Catheter ABP, PAP, CO, CI - Last Documented Arterial Blood Pressure 135/63 - Labs CBC & Chem 7: 11/03/24 05:21 11/03/24 05:21 Labs: Abnormal Lab Results - Last 24 Hours (Table) 11/02/24 11/03/24 11/03/24 Range/Units 16:54 00:08 05:20 WBC (3.8-10.6) k/uL Hgb (11.4-16.0) gm/dL RDW (11.5-15.5) % Neutrophils # (1.3-7.7) k/uL Lymphocytes # (1.0-4.8) k/uL ABG pH 7.28 L (7.35-7.45) ABG pCO2 52 H (35-45) mmHg ABG pO2 64 L (83-108) mmHg ABG Total CO2 26 H (19-24) mmol/L ABG O2 Saturation 89.0 L (94-97) % Hemoglobin 11.2 L (11.4-16.0) gm/dL Sodium (137-145) mmol/L Potassium (3.5-5.1) mmol/L Chloride (98-107) mmol/L Carbon Dioxide (22-30) mmol/L BUN (7-17) mg/dL Creatinine (0.52-1.04) mg/dL Glucose (74-99) mg/dL POC Glucose (mg/dL) 122 H 113 H (70-110) mg/dL Calcium (8.4-10.2) mg/dL 11/03/24 11/03/24 11/03/24 Range/Units 05:21 05:21 06:00 WBC 23.4 H (3.8-10.6) k/uL Hgb 11.1 L (11.4-16.0) gm/dL RDW 18.3 H (11.5-15.5) % Neutrophils # 21.8 H (1.3-7.7) k/uL Lymphocytes # 0.5 L (1.0-4.8) k/uL ABG pH 7.24 L (7.35-7.45) ABG pCO2 54 H (35-45) mmHg ABG pO2 65 L (83-108) mmHg ABG Total CO2 25 H (19-24) mmol/L ABG O2 Saturation 88.8 L (94-97) % Hemoglobin 11.2 L (11.4-16.0) gm/dL Sodium 125 L (137-145) mmol/L Potassium 5.5 H (3.5-5.1) mmol/L Chloride 93 L (98-107) mmol/L Carbon Dioxide 19 L (22-30) mmol/L BUN 56 H (7-17) mg/dL Creatinine 3.68 H (0.52-1.04) mg/dL Glucose 102 H (74-99) mg/dL POC Glucose (mg/dL) (70-110) mg/dL Calcium 8.3 L (8.4-10.2) mg/dL
[2024-11-03 11:37] LABS: Glucose,Whole Blood 101 mg/dL (70-110)
--- NOTE | 2024-11-03 11:53 | P.PN ---
Subjective patient is seen for follow-up for acute kidney injury. Patient is sedated and on the ventilator. Started on hemodialysis on 10/26/2024. Patient is seen on hemodialysis. UF of about 4L today. FiO2 remains at 100%. Minimal urine output. Plans for transfer to [facility] via air ambulance today. Objective - Vital Signs Vital signs: Vital Signs Temp 98.0 F 11/03/24 08:00 Pulse 72 11/03/24 11:24 Resp 33 H 11/03/24 11:00 BP 89/39 11/03/24 10:10 Pulse Ox 85 L 11/03/24 11:00 FiO2 100 11/03/24 11:10 Intake & Output 11/02/24 11/03/24 11/03/24 18:59 06:59 18:59 Intake Total 2283.444 1716.638 407.835 Output Total 7405 10 17 Balance -5121.556 1706.638 390.835 Weight 189.9 kg 189.2 kg Intake: IV 301 273 35 Piperacillin-Tazobactam 3 145 120 .375 gm In Sodium Chloride 0.9% 100 ml @ 25 mls/hr IVPB Q12H SUMEET Rx# :[id number] Pressure Bag 36 33 15 Sodium Chloride 0.9% 1, 120 120 20 000 ml @ 20 mls/hr IV . Q24H SUMEET Rx#:[id number] Intake, IV Titration 3739.684 9547.638 252.835 Amount Cisatracurium 200 mg In 389.421 175.051 Sodium Chloride 0.9% 180 ml @ 1 MCG/KG/MIN 8.709 mls/hr IV .[id number] SUMEET Rx #:[id number] DOPamine DRIP 800 mg In 31.640 30.304 Dextrose/Water 1 250ml. bag @ 1 MCG/KG/MIN 2.722 mls/hr IV .Q24H SUMEET Rx#: [id number] fentaNYL (PF) 2,500 mcg 250 477.543 In Sodium Chloride 0.9% 200 ml @ 2 MCG/KG/HR 29. 03 mls/hr IV .Q8H37M SUMEET Rx#:[id number] propofoL 1,000 mg In 577.383 454.740 252.835 Empty Bag 1 bag @ 15 MCG/ KG/MIN 13.064 mls/hr IV . Q7H40M [facility] Rx#:[id number] Tube Feeding 244 216 90 Hemodialysis 400 Other 90 90 30 Output: Urine 5 10 17 Hemodialysis 3900 Hemodialysis Net Amount 3500 Other: Voiding Method Indwelling Catheter Indwelling Catheter ABP, PAP, CO, CI - Last Documented Arterial Blood Pressure 111/60 - Exam patient is sedated and on the vent. Bilateral breath sounds are heard Examination of the heart S1 and S2 Abdomen is soft obese Examination of lower extremity shows edema 2+ bilaterally - Labs CBC & Chem 7: 11/03/24 05:21 11/03/24 05:21 Labs: Abnormal Lab Results - Last 24 Hours (Table) 11/02/24 11/03/24 11/03/24 Range/Units 16:54 00:08 05:20 WBC (3.8-10.6) k/uL Hgb (11.4-16.0) gm/dL RDW (11.5-15.5) % Neutrophils # (1.3-7.7) k/uL Lymphocytes # (1.0-4.8) k/uL ABG pH 7.28 L (7.35-7.45) ABG pCO2 52 H (35-45) mmHg ABG pO2 64 L (83-108) mmHg ABG Total CO2 26 H (19-24) mmol/L ABG O2 Saturation 89.0 L (94-97) % Hemoglobin 11.2 L (11.4-16.0) gm/dL Sodium (137-145) mmol/L Potassium (3.5-5.1) mmol/L Chloride (98-107) mmol/L Carbon Dioxide (22-30) mmol/L BUN (7-17) mg/dL Creatinine (0.52-1.04) mg/dL Glucose (74-99) mg/dL POC Glucose (mg/dL) 122 H 113 H (70-110) mg/dL Calcium (8.4-10.2) mg/dL 11/03/24 11/03/24 11/03/24 Range/Units 05:21 05:21 06:00 WBC 23.4 H (3.8-10.6) k/uL Hgb 11.1 L (11.4-16.0) gm/dL RDW 18.3 H (11.5-15.5) % Neutrophils # 21.8 H (1.3-7.7) k/uL Lymphocytes # 0.5 L (1.0-4.8) k/uL ABG pH 7.24 L (7.35-7.45) ABG pCO2 54 H (35-45) mmHg ABG pO2 65 L (83-108) mmHg ABG Total CO2 25 H (19-24) mmol/L ABG O2 Saturation 88.8 L (94-97) % Hemoglobin 11.2 L (11.4-16.0) gm/dL Sodium 125 L (137-145) mmol/L Potassium 5.5 H (3.5-5.1) mmol/L Chloride 93 L (98-107) mmol/L Carbon Dioxide 19 L (22-30) mmol/L BUN 56 H (7-17) mg/dL Creatinine 3.68 H (0.52-1.04) mg/dL Glucose 102 H (74-99) mg/dL POC Glucose (mg/dL) (70-110) mg/dL Calcium 8.3 L (8.4-10.2) mg/dL Assessment and Plan Assessment: 1. Acute kidney injury secondary to ATN secondary to bradycardia, hypotension further worsened with the use of NSAIDs and diuretics. Baseline creatinine 0.7- 0.8 and 3.31 on admission. Oliguric. Started on hemodialysis October 26, 2024 via femoral dialysis catheter. No hydronephrosis noted on kidney ultrasound. Maintained on daily dialysis treatments. 2. Hyperkalemia secondary to acute kidney injury, acidosis, NSAIDs, potassium supplementation. Improved. 3. Bradycardia secondary to hyperkalemia. Improved. 4. Metabolic acidosis secondary to acute kidney injury. Status post bicarb drip. Improved. 5. Shock liver. 6. Recent right knee surgery with subsequent fall. Will need further intervention in the future. 7. Hyponatremia secondary to acute kidney injury, hypervolemic. Also receiving some IV meds with hypotonic fluids. 8. Acute hypoxic respiratory failure secondary to ARDS. Remains Intubated with 100% FiO2. Plans for transfer to outside facility for ECMO Plan: Maintain daily dialysis with increased UF as tolerated. Continue with dopamine. Overall prognosis is guarded
--- NOTE | 2024-11-03 13:15 | P.DS ---
Providers Date of admission: 10/26/24 02:56 Expected date of discharge: 11/03/24 Attending physician: Erickson Li Consults: 10/26/24 02:56 Consult Physician Stat Consulting Provider: Essie Calderon Consult Reason/Comments: Cardiogenic shock Do you want consulting provider notified?: Already Contacted Consult Physician Stat Consulting Provider: Ivis Benito Consult Reason/Comments: Cardiogenic shock Do you want consulting provider notified?: Already Contacted 10/26/24 03:27 Consult Physician Routine Consulting Provider: Zena Justin Consult Reason/Comments: aleah Do you want consulting provider notified?: Yes, Notify in am 10/26/24 06:28 Consult Physician Stat Consulting Provider: Luciano Gallagher Consult Reason/Comments: Dialysis catheter Do you want consulting provider notified?: Already Contacted 10/26/24 14:14 Consult Physician Routine Consulting Provider: Isidro Gonzalez Consult Reason/Comments: altered mental status, right pupil nonreactive Do you want consulting provider notified?: Yes Primary care physician: Erickson Li [facility] Course: This is a 54-year-old female with past medical history significant for recent knee surgery proximately within the last 3 months with fall postoperatively 1 week ago, osteoarthritis, treated for UTI outpatient last week with Macrobid, COPD, migraines, hypertension, osteoarthritis, morbid obesity, sleep apnea, anxiety, depression, nicotine dependence and multiple other medical issues brought into the ER via EMS with reports of confusion, hallucinations, hypoxia, hypotension. Family reports patient nauseated and dizzy since Saturday night. on EMS arrival, reported systolic blood pressure of 80s, O2 sats of 70% on room air, placed on nonrebreather, EKG reported severe bradycardia with heart rates in the 20s and 30s. ER reports ,on arrival patient was alert and oriented to person and place, reported she had taken an additional [place] as well as an additional Flexeril for knee pain. Creatinine 3.24 on admission, currently at 3.3, baseline 0.7. Hyperkalemic cocktail administered for potassium at 8.6 , currently down to 6.3. EKG reported wide-complex bradycardia, junctional. ABGs reported pH of 7.14, pCO2 53, pO2 87, bicarb 18, total CO2 20 O2 sat 94 with a base excess of -11.1 on 70% FiO2. patient was intubated, taken to the [facility] for transvenous pacer, but spontaneously converted to sinus rhythm. Currently ventilator dependent with FiO2 100%/+8 with PEEP. Maintained on epinephrine and dopamine. Continues on bicarb drip. chest x-ray reported cardiomegaly, worsening pulmonary edema versus massive pneumonia ,antibiotics initiated. Hemoglobin A1c 6.0. T. bili 2.2, AST 3715, ALT 4016, alk phos 155. Hepatitis panel in progress. troponin negative x 1. TSH 9.660, free T4 1.35. 10/27/2024 Vent dependent .hemodialysis initiated yesterday. Maintained on bicarb drip, acidosis improving, bicarb 32, discontinued. Continues on dopamine and epinephrine drips echo reporting normal LV function, RVSP 66. Chest x-ray reporting persistent moderate large amount airspace opacities throughout both lungs more on the right, similar. 10/28/2024 Vent dependent, yesterday vent settings of 100% FiO2 +12 of PEEP; today FiO2 100%/+15 of PEEP on pressure control. Lasix attempted yesterday, no improvement. Chest x-ray reporting cardiomegaly, ongoing interstitial and patchy opacities, continue small effusions with adjacent atelectasis and/or consolidation. Received hemodialysis yesterday and today. Renal function improving, bicarb 28, BUN 47, creatinine 2.51. remains on Nimbex, diprovan, dopamine and fentanyl drips. Calcium 7.5, received calcium gluconate. Worsening LFTs. Maintained on Zosyn, Decadron, sputum culture reporting Pseudomonas aeruginosa Tmax 99, WBC 11.2. Venous Doppler pending. 10/29/2024 ventilator dependent, maintained on 100% FiO2/+15 PEEP. Continues on Nimbex ,diprovan ,fentanyl, dopamine drips. Midodrine added to med regimen. Continues on Zosyn, nebulized bronchodilators, dexamethasone. Blood sugars better controlled.Afebrile, normal WBC. HD today. LFTs trending down. Albumin 2.9. 10/30/2024 unstable to travel off the floor for further imaging/studies. Remains vent dependent with FiO2 100%/+15 PEEP. Maintained on diprovan, Nimbex, dopamine, fentanyl drips.EEG reported abnormal, background slowing, moderate encephalopathy ; diffuse suppression likely due to medication -propofol .continues on daily hemodialysis. Continues on Zosyn for sputum positive with Pseudomonas aeruginosa. 11/02/24 remains vent dependent, FiO2 100%/post 15 of PEEP. maintained on Nimbex, diprovan, fentanyl, dopamine. Receiving hemodialysis. Remains unstable to travel for imaging, unable to tolerate pressure control mode, unable to lie flat related to significant desaturations reported. 11/03/2024 remains vent dependent, 100% FiO2 PEEP increased to 18. Continues on Nimbex, diprovan, fentanyl and dopamine drips. Maintained on Zosyn -sputum culture positive for Pseudomonas. transfer initiated yesterday afternoon and patient has been accepted at [facility] for potential ECMO, which is not offered at this site. prognosis extremely poor. Receiving hemodialysis prior to transfer. The impression and plan of care has been dictated as directed. : I performed a history and examination of this patient, discussed the same with the dictator. I agree with the dictator's note ,documented as a scribe. Any additional findings or plans will be noted. Patient Condition at Discharge: Critical Plan - Discharge Summary New Discharge Prescriptions: No Action DULoxetine HCL [Cymbalta] 60 mg PO HS Butalb/APAP/Caff 50-325-40Mg [Fioricet 50-325-40] 1 tab PO DAILY Loratadine [Claritin] 10 mg PO DAILY Aspirin EC [Ecotrin Low Dose] 81 mg PO DAILY HYDROcodone/APAP 10-325MG [[place] 10-325] 1 tab PO TID PRN PRN Reason: Pain Venlafaxine HCl ER [Effexor XR] 37.5 mg PO DAILY Metoprolol Tartrate [Lopressor] 25 mg PO BID Atorvastatin [Lipitor] 20 mg PO DAILY ARIPiprazole [Abilify] 5 mg PO HS Potassium Chloride [Potassium Chloride ER] 10 meq PO DAILY Fluticasone/Umeclidin/Vilanter [Trelegy Ellipta 100-62.5-25] 1 puff INHALATION RT-DAILY Furosemide [Lasix] 40 mg PO DAILY Ibuprofen [Motrin] 800 mg PO BID PRN PRN Reason: Pain metOLazone [Zaroxolyn] 5 mg PO DAILY DULoxetine HCL [Cymbalta] 30 mg PO HS Exemestane [Aromasin] 25 mg PO DAILY Levothyroxine Sodium [Synthroid] 50 mcg PO DAILY rOPINIRole HCL [Requip] 1 mg PO DAILY PRN PRN Reason: RESTLESS LEGS tiZANidine [Zanaflex] 4 mg PO TID Albuterol Sulfate [Albuterol Sulfate Hfa] 2 puff PO RT-QID PRN PRN Reason: Shortness Of Breath Verapamil HCl [Verapamil ER] 180 mg PO DAILY ALPRAZolam [Xanax] 0.25 mg PO HS PRN PRN Reason: Anxiety amLODIPine BESYLATE/BENAZEPRIL [amLODIPine BESYLATE/BENAZEPRIL 5-20 mg] 1 cap PO DAILY Zolpidem [Ambien] 10 mg PO HS PRN PRN Reason: Insomnia buPROPion XL [Wellbutrin XL] 150 mg PO DAILY Semaglutide [Wegovy] 1 mg SQ Q7D Albuterol Nebulized [Ventolin Nebulized] 2.5 mg INHALATION RT-QID Nitrofurantoin Monohyd/M-Cryst [Macrobid] 100 mg PO Q12HR Fluticasone Propion/Salmeterol [Fluticasone-Salmeterol 250-50] 1 puff INHALATION RT-BID Discharge Medication List Butalb/APAP/Caff 50-325-40Mg [Fioricet 50-325-40] 1 tab PO DAILY 05/22/17 [History] DULoxetine HCL [Cymbalta] 60 mg PO HS 05/22/17 [History] Aspirin EC [Ecotrin Low Dose] 81 mg PO DAILY 06/06/18 [History] Loratadine [Claritin] 10 mg PO DAILY 06/06/18 [History] HYDROcodone/APAP 10-325MG [[place] 10-325] 1 tab PO TID PRN 08/18/19 [History] ARIPiprazole [Abilify] 5 mg PO HS 04/27/20 [History] Atorvastatin [Lipitor] 20 mg PO DAILY 04/27/20 [History] Metoprolol Tartrate [Lopressor] 25 mg PO BID 04/27/20 [History] Venlafaxine HCl ER [Effexor XR] 37.5 mg PO DAILY 04/27/20 [History] Potassium Chloride [Potassium Chloride ER] 10 meq PO DAILY 04/21/21 [History] rOPINIRole HCL [Requip] 1 mg PO DAILY PRN 04/21/21 [History] tiZANidine [Zanaflex] 4 mg PO TID 04/21/21 [History] Albuterol Sulfate [Albuterol Sulfate Hfa] 2 puff PO RT-QID PRN 05/29/21 [History] Fluticasone/Umeclidin/Vilanter [Trelegy Ellipta 100-62.5-25] 1 puff INHALATION RT-DAILY 12/05/21 [History] Furosemide [Lasix] 40 mg PO DAILY 12/05/21 [History] Ibuprofen [Motrin] 800 mg PO BID PRN 12/05/21 [History] metOLazone [Zaroxolyn] 5 mg PO DAILY 12/05/21 [History] Verapamil HCl [Verapamil ER] 180 mg PO DAILY 04/25/22 [History] ALPRAZolam [Xanax] 0.25 mg PO HS PRN 04/30/23 [History] DULoxetine HCL [Cymbalta] 30 mg PO HS 04/30/23 [History] Exemestane [Aromasin] 25 mg PO DAILY 04/30/23 [History] Zolpidem [Ambien] 10 mg PO HS PRN 04/30/23 [History] amLODIPine BESYLATE/BENAZEPRIL [amLODIPine BESYLATE/BENAZEPRIL 5-20 mg] 1 cap PO DAILY 04/30/23 [History] Albuterol Nebulized [Ventolin Nebulized] 2.5 mg INHALATION RT-QID 10/26/24 [History] Fluticasone Propion/Salmeterol [Fluticasone-Salmeterol 250-50] 1 puff INHALATION RT-BID 10/26/24 [History] Levothyroxine Sodium [Synthroid] 50 mcg PO DAILY 10/26/24 [History] Nitrofurantoin Monohyd/M-Cryst [Macrobid] 100 mg PO Q12HR 10/26/24 [History] Semaglutide [Wegovy] 1 mg SQ Q7D 10/26/24 [History] buPROPion XL [Wellbutrin XL] 150 mg PO DAILY 10/26/24 [History] Follow up Appointment(s)/Referral(s): Erickson Li DO [Primary Care Provider] - 1-2 days
--- NOTE | 2024-11-03 15:05 | XR ---
EXAMINATION TYPE: XR chest 1V portable DATE OF EXAM: 11/03/2024 5:11 AM COMPARISON: 11/02/2024 CLINICAL INDICATION: Female, 54 years old with history of mechanical ventilation, difficulty breathin g TECHNIQUE: XR chest 1V portable view(s) obtained. FINDINGS: The heart size is enlarged. The pulmonary vasculature is prominent. Diffuse patchy infiltrate is present bilaterally. Findings are worsening. Endotracheal tube tip is 2.2 cm above the izabella. Right central venous catheter tip in the superior v ganga cava region. Nasogastric tube transverses the thorax out of the field of view IMPRESSION: 1. Increasing patchy bilateral lung infiltrates. Correlate for pulmonary edema. Pneumonia could be co nsidered. Continued follow-up recommended. [facility], , 11/03/2024 3:02 PM
[2024-11-03 18:37] LABS: Glucose,Whole Blood 109 mg/dL (70-110)
[2024-11-03 21:08] VITALS: RESP 33
[2024-11-03 23:13] LABS: Glucose,Whole Blood 107 mg/dL (70-110)
[2024-11-04 04:47] LABS: Anisocytosis Slight; Basophils % (A) 0 %; Eosinophils # (A) 0.1 k/uL (0-0.7); Eosinophils % (A) 0 %; HCT 36.2 % (34.0-46.0); HGB 11.2 gm/dL (11.4-16.0); Hypochromasia Marked; Lymphocytes # (A) 0.4 k/uL (1.0-4.8); Lymphocytes % (A) 2 %; MCH 26.2 pg (25.0-35.0); MCHC 30.9 g/dL (31.0-37.0); MCV 84.8 fL (80.0-100.0); Mean Platelet Volume 9.9; Monocytes # (A) 0.6 k/uL (0-1.0); Monocytes % (A) 3 %; Neutrophils # (A) 20.5 k/uL (1.3-7.7); Neutrophils % (A) 95 %; Platelet Count 313 k/uL (150-450); RBC 4.26 m/uL (3.80-5.40); RDW 18.3 % (11.5-15.5); WBC 21.7 k/uL (3.8-10.6)
[2024-11-04 04:55] LABS: ABG Base Excess -4.2 mmol/L; ABG HCO3 24 mmol/L (21-25); ABG Oxygen Saturation 88.8 % (94-97); ABG PCO2 54 mmHg (35-45); ABG PH 7.25 (7.35-7.45); ABG PO2 64 mmHg (83-108); ABG TCO2 25 mmol/L (19-24); Allen Test Performed? Yes
[2024-11-04 04:59] LABS: Anion Gap 12 mmol/L; Blood Urea Nitrogen 50 mg/dL (7-17); Calcium 8.4 mg/dL (8.4-10.2); Carbon Dioxide 20 mmol/L (22-30); Chloride 94 mmol/L (98-107); Glucose 105 mg/dL (74-99); Potassium 5.3 mmol/L (3.5-5.1); Sodium 126 mmol/L (137-145)
[2024-11-04 05:05] LABS: African American GFR (CKD) 19 (>60 ml/min/1.73 sqM); Non-African American GFR(CKD) 16 (>60 ml/min/1.73 sqM)
[2024-11-04 05:29] LABS: Glucose,Whole Blood 110 mg/dL (70-110)
--- NOTE | 2024-11-04 07:28 | XR ---
EXAMINATION TYPE: XR chest 1V portable DATE OF EXAM: 11/04/2024 5:27 AM COMPARISON: 11/03/2024 CLINICAL INDICATION: Female, 54 years old with history of mechanical ventilation, TECHNIQUE: XR chest 1V portable view(s) obtained. FINDINGS: The heart size is enlarged. The pulmonary vasculature is prominent. Patchy bilateral lung infiltrates are present. This is improved from paracentral. Endotracheal tube tip is 3.5 cm above the izabella. Nasogastric tube transverses the thorax. Right cent ral venous catheter tips in the distal cava region. IMPRESSION: 1. Improving bilateral patchy infiltrates. Consider resolving pulmonary edema and congestive heart fa ilure. Continued follow-up recommended [facility], , 11/04/2024 7:25 AM
--- NOTE | 2024-11-04 11:39 | P.PN ---
Subjective Progress Note Date: 11/04/24 Acute on chronic hypoxic respiratory failure and acute hypercapnic respiratory failure with hypovolemic shock and severe bradycardia This is a 54-year-old female with history of multiple medical problems including COPD, chronic pain syndrome, dyslipidemia, bipolar disorder, hypertension, patient was brought into the ER yesterday mostly with change in mental status and according to family patient has been confused for the last 2 days, patient has been hallucinating and upon arrival to the ER she was noted to be severely bradycardic and hypotensive. Patient remained bradycardic, patient was seen by cardiology on consultation for her bradycardia, patient was taken to the cardiac [employer], her blood pressure was 120 on norepinephrine, decision was made to hold her pacemaker insertion. Previous cardiac workup from previous records has shown preserved systolic function and no documented ischemic heart disease. When labs were reviewed, patient was noted to have hyperkalemia and acute renal failure, shock liver profile, patient was intubated in the ER, she was eventually transferred to the ICU after she went to cardiac cath. But again pacemaker insertion was placed on hold. Patient is now intubated mechanically ventilated, she is on assist-control rate of 22 tidal volume 500 FiO2 100% and PEEP of 8 ABG showed a pO2 of 87 pCO2 53 pH of 7.14, her rate was increased to 26, patient received 1 amp of bicarb, and she was already on bicarb drip. Patient is on multiple drips including dopamine at 10 mcg/kg/min, propofol at 45 mg/kg/min Versed which I have discontinued 3 mg/h patient is also receiving epinephrine at 0.12 mcg/kg/min receiving 3 A of bicarb in D5W at 200 cc/h patient is hyperkalemic and follow-up sodium remains above 6, although the patient received the hyperkalemia protocol. Her initial potassium was 8.6 on her initial presentation. Patient already had a hemodialysis catheter placed by vascular surgery in the left groin, and she has a right IJ triple-lumen cathete r. I went ahead and placed a right radial arterial line. Patient is scheduled to undergo hemodialysis today, patient is not responsive to any stimuli except deep painful stimuli noted while I was placing an arterial line, patient withdraws to painful stimuli/needlestick. Pupils are dilated and sluggishly reactive. Looking back at her history patient had total knee arthroplasty 3 months ago and she had a fall about a week ago may have sustained head injury however CT of the brain is pending patient is to be seen by neurology on consultation today. And she is being seen by many consultants including nephrology and cardiology. Overall picture is extremely poor and guarded. And the patient is critically ill. Blood sugars are running high as 336 liver enzymes are elevated including a bilirubin of 2.2 AST of 3715 ALT of 4016 and alkaline phosphatase of 155 Patient seen today on 10/27/2024, patient remains in the ICU, intubated and mechanically ventilated sedated and paralyzed. Patient developed worsening pulmonary edema over the last 24 hours, hence she required higher FiO2 of 100% higher PEEP of 12 and she remains marginal as far as oxygenation is concerned. Patient is undergoing hemodialysis today no fluid was removed yesterday, and nephrology is planning to remove only 500 cc of fluid today. Patient remains on dopamine at 10 mcg/kg/min epinephrine at 0.02 mcg/kg/min Fentanyl at 2 mcg/kg/h propofol at 75 mcg/kg/min remains on Nimbex at 1 mcg/kg per minute and was suppo sed to have a CT of the brain yesterday, however the portion was relatively unstable could not have the CT of the brain done yesterday mostly because of arrhythmia and hypotension had to be brought back up to the ICU and she had to be paralyzed. Overall condition is not promising, actually her condition seems to be worse today compared to yesterday. Patient was seen by neurology on consultation still entertaining the possibility of anoxic brain injury due to severe hypoxia. The patient has anisocoria with right pupil larger than the left pupil full adequate neurological exam could not be fully done mostly because of the fact the patient is on Nimbex Fentanyl and propofol. Patient could not come off Nimbex mostly because could not be ventilated yesterday in spite of multiple sedatives including propofol and fentanyl. These were relatively high doses. She was very asynchronous with the ventilator, breathing over 40/min, had to be given Nimbex otherwise could not ventilate the patient. Today continues to have high peak airway pressure in the range of 40 high plateau pressures in the range of 34, and she has marginal oxygenation chest x- ray showed pulmonary edema underlying aspiration pneumonia is not entirely ruled out hence the patient remains on antibiotics empirically and she still receiving diuretics she is also on hemodialysis because she had complete renal shutdown on this admission. Her WBC count is 11.3 hemoglobin is 11.4 her ABG today showed a pO2 of 74 pCO2 72 pH of 7.26 basic metabolic profile showed potassium of 4.9 BUN of 82 creatinine 2.77 AST is 7474 ALT is 7846 worse today compared to yesterday. This is a picture of shock liver to mention the patient presented with acute tubular necrosis and acute kidney injury. Severe metabolic acidosis and severe hyperkalemia leading to bradycardia hypotension, cardiogram showed good LV function today, ejection fraction of 60 to 65% right-sided pressures are in the range of 66. Patient was seen today on 10/28/2024, remains in the ICU, remains intubated and mechanically ventilated. Patient is on assist-control rate of 3 0 tidal volume 400 FiO2 100% and PEEP of 15. However considering her relatively high peak airway pressure and plateau pressures I switched the patient to a pressure control mode of mechanical ventilation with PI of 23 TI 0.7 rate remains 33 and PEEP remains at 15. ABG earlier today showed a pO2 of 54 pCO2 50 pH of 7.35. Patient remains on Decadron remains on Zosyn, sputum is positive for Pseudomonas aeruginosa patient remains extremely oliguric 5 to 10 cc/h. He did not improve with Lasix yesterday. Remains on dialysis and she will have dialysis again today. Did not do a CT of the brain and could not do a CT of the chest mostly because of her instability. Recommending a venous Doppler to be done today. Time patient remains on Nimbex at 2 mcg/kg/min and dopamine 7.5 mcg/kg/min and I am cutting it down to 5 fentanyl at 2 mcg/kg/h propofol at 65 mcg/kg/min he is off epinephrine. Could use norepinephrine if necessary for low blood pressure. Right now she is only on dopamine which is to be tapered down to a renal perfusion dose if possible. This x-ray continues to show cardiomegaly and evidence of pulmonary edema, small bilateral pleural effusions and atelectasis. WBC count is 11.2 hemoglobin 11.9, sodium 124 potassium 6.6 enzymes remain elevated. Profile is abnormal with a BUN of 71 creatinine 3.20 patient is undergoing hemodialysis again today Seen today on 10/29/2024, patient remains in the ICU intubated mechanically ventilated sedated and paralyzed patient is on assist-control rate of 33 tidal volume 400 FiO2 100% and PEEP of 15 ABG showed a pO2 of 59 pCO2 51 pH of 7.32. Patient is having another hemodialysis today and the plan is to remove 2.5 L today. Patient remains on Nimbex at 2 mcg/kg/min and she also on vital HP at 20 cc/h dopamine at 2 mcg/kg/min Fentanyl at 2 mcg/kg/kg/h propofol at 65 mg/kg/min and IV fluid at KVO. Chest x-ray is basically about the same continues to show evidence of pulmonary edema and bilateral pleural effusion her labs showed low sodium of 125, bicarb is 24 BUN is 63 creatinine 3.50 liver enzymes are impro ving with ALT down to 6491, AST is down to 2071 venous Doppler of lower extremities could not be optimal because of her legs condition and swelling as well as body habitus, could not send the patient back down for CT angiogram of the chest and for CT of the head patient had some sort of head trauma, I am afraid to place patient empirically on heparin, and I am yet to stabilize the patient to have a CT of the head. Her clinical condition is extremely marginal at best, and I prefer not to send her down for CT of the chest and CT of the head at this point EEG did show evidence of moderate encephalopathy and I believe the patient must have sustained some significant anoxic brain injury Patient was seen today on 10/30/2024, remains in the ICU, intubated and mechanically ventilated. On assist-control rate of 33 tidal volume 400 FiO2 100% PEEP of 15 ABG showed a pO2 of 71 pCO2 46 pH of 7.36. Patient is having more hemodialysis today, and the plan is to remove 3 L of fluids. Patient remai ns on Demadex at 1 mcg/kg/min, dopamine at 0.5 mcg/kg/min Fentanyl at 2 mg/kg/h propofol 65 mcg/kg/min. Patient remains empirically on Zosyn much of the major change noted in the last 24 hours, patient desaturates easily as soon as she goes down to flat position. Hence I am reluctant to send the patient down for CT of the brain and CT of the chest. Mother is at bedside and she was updated on her condition WBC count is 7.7 hemoglobin 10.7 sodium is 126 potassium 4.9 BUN is 57 creatinine 3.54 chest x-ray continues to show pleural effusions and pulmonary edema Patient was seen today on 10/31/2024, patient remains in the ICU, intubated and mechanically ventilated, she is on assist-control rate of 33 tidal volume 400 FiO2 100% and PEEP of 15 ABG remains marginal with a pCO2 of 66 pCO2 50 pH of 7.33 vu on Nimbex at 2 mcg/kg/min dopamine at 1 mcg/kg/min propofol at 65 mg/kg/min IV fluids at KVO vital HP at 20 patient remains on Zosyn for positive Pseudomonas in the sputum. Remains on Lovenox. Patient is also on fentanyl at 2 mcg/kg/h. X-ray continues show evidence of pulmonary edema, her overall clinical condition remains very poor, remains relatively unstable and she could not lay flat to have CT of the brain and CT angiogram of the chest. Undergoing daily hemodialysis. Chest x-ray is not showing any significant improvement in spite of daily dialysis. Count is 11.4 hemoglobin 10.2 sodium remains low at 126 platelets 57 creatinine 3.23, bicarb is 23 her enzymes are improving AST down to 77-77 and ALT is 2947 alkaline phosphatase 178 albumin is 2.9 Reevaluate today on 11/01/2024, patient remains in the ICU, there has not been any significant change in the last few days and her overall clinical status except improvement in her liver profile. Patient remains intubated and mechanically ventilated, remains on assist-control rate of 33 tidal volume 400 FiO2 100% and PEEP of 15 ABG remains marginal with a pO2 of 59 pCO2 50 pH of 7.32 patient may get hemodialysis today. Remains on antibiotics empirically she is on Zosyn she had Pseudomonas in her sputum and that is being addressed. Patient continues to have minimal urine output/oliguric 30 cc of urine output in the last 12 hours remains on Nimbex at 3 mcg/kg/min propofol at 65 mcg/kg/min and she is also on vital sleep formula for nutritional support . Family is at bedside, discussed the fact that the patient is not showing any improvement also discussed the fact that the patient is not in a position where we could safely perform CT of the head and CT angiogram of the chest. Patient was given a trial of pressure control mode of mechanical ventilation because of her peak airway pressures however the volumes went down significantly and could not maintain adequate volumes and the patient was noted to desaturate with pressure control. This went back to volume control mode of mechanical ventilation. Chest x-ray continues to show evidence of pulmonary edema, underlying infection/pneumonia is not entirely ruled out but felt to be less likely considering her presentation. WBC count today is 21.1 hemoglobin 10.6 sodium 127 BUN is 49 creatinine 2.93 11/02/24 - Patient seen at bedside today, remaining in ICU, without any significant change overnight/over the past few days. Patient remains intubated mechanically ventilated on assist control with a tidal volume of 410, rate of 33, FiO2 of 100%, with a PEEP of 15. ABG shows pO2 57, pCO2 51, pH 7.26. Patient scheduled to receive hemodialysis today. Patient has remained on antibiotics decrease empirically with Zosyn as she had a positive sputum culture for Pseudomonas, however WBCs shown to be 23.2 this morning, increased from 21.1 yesterday. Patient continues to make minimal urine ~20 cc over the last 12 hours. Patient remains on dopamine drip of 0.5 mcg/kg/min, Nimbex 3 mcg/kg/min, fentanyl 2 mcg/kg/h, propofol 65 mcg/kg/min receiving 20 cc/h of normal saline and remains on Zosyn 3.375 g every 12 hours. Patient's mother remains at bedside, discussed with her about the patient has shown minimal improvement and continue to discuss how the patient is not in a position where we can safely perform a CT of the head and a CT angiogram of the chest, which have been discussed over the past few days. Chest x-ray showed evidence of pulmonary edema, however underlying infection/pneumonia not entirely ruled out. Discussion was had with the patient's mother and the patient care team for the possibility of transfer for the patient to undergo ECMO, which is to be explored over the next day or so. 11/03/24 - Patient seen at bedside today, remaining in the ICU, without any significant overnight changes. Patient remains intubated mechanically ventilated on assist-control with tidal volume of 400, rate of 33, FiO2 from 100%, with PEEP of 18. ABG shows PaO2 65, pCO2 54, pH 7.24. Patient is scheduled to receive emergent hemodialysis this morning, and following that the patient is to be transferred to [facility] after being accepted for admission to receive higher level of critical care with ECMO. She continues to receive Zosyn for positive sputum culture showing Pseudomonas. WBCs are remained relatively stable at 23.4. Patient continues to make minimal urine, ~10 cc over the past 12 hours. Patient remains on dopamine drip at 1.8 mcg/kg/min, Nimbex 10 mcg/kg/min, fentanyl 2 mcg/kg/h, and propofol 65 mcg/kg/min. Patient receiving midodrine 10 mg 3 times daily. 11/04/24 - Patient seen at bedside today, remaining in the ICU, without any significant overnight changes. Patient remains intubated, mechanically ventilated on assist-control with tidal volume 400, rate of 33, FiO2 of 100%, with PEEP of 18. ABG shows PaO2 64, PaCO2 54 and pH of 7.25. Patient scheduled to receive hemodialysis this morning, after which potential transfer and for [facility] if a bed is available. Yesterday 600 cc was removed during hemodialysis. Patient continues on Zosyn. Sputum culture showing Pseudomonas. WBCs have shown slight improvement down to 21.7. Patient continues to make minimal urine 0-5 cc in the last 12 hours. Patient vu on dopamine drip at 2 mcg/kg/min, Nimbex 2 mcg/kg/min, fentanyl 2 mcg/kg/h, propofol 60 mcg/kg/min and is receiving vital HP at 18 which is goal. REVIEW OF SYSTEMS: Patient is currently intubated and mechanically ventilated. PHYSICAL EXAMINATION: GENERAL: 55-year-old female intubated, mechanically ventilated, unresponsive to any stimuli except deep painful stimuli/needlesticks. Patient remains on Nimbex, propofol, fentanyl, and dopamine HEENT: Subconjunctival swelling is noted, however improving. Normocephalic, atraumatic. CARDIOVASCULAR: S1 and S2 present. No murmurs, rubs, or gallops. PULMONARY: Diminished breath sounds bilaterally. Coarse breath sounds in all lung [place]. ABDOMEN: Morbidly obese. Soft, nontender, normoactive bowel sounds, with some distention. MUSCULOSKELETAL: No joint swelling or deformity. EXTREMITIES: Trace bipedal edema noted. Bruising and swelling noted of the right knee. Diminished distal pulses. NEUROLOGICAL: Patient is intubated, sedated, paralyzed. SKIN: No rashes. Assessment and plan #Acute on chronic proximal respiratory failure (maintained on 2 L nasal cannula at home) #Acute hypercapnic respiratory failure #Acute metabolic and respiratory acidosis #Severe ARDS #Possible acute anoxic brain injury #Sputum culture positive for Pseudomonas, continuing on Zosyn #Worsening leukocytosis -Discussed and updated the family on her condition today and started him think about possibly considering comfort care measures and decide on this in the next 24 to 48 hours. -In the meantime continue ventilatory support, tried pressure control mode of mechanical ventilation did not seem to do well with pressure control; continue with volume assist-control -Unable to send patient for further diagnostic procedures because of her instability; would like a CT head and CT angiography of the chest heart patient unable to tolerate performing this test -Continue with dopamine drip at 0.5 mcg/kg/min, Nimbex at 3 mcg/kg/min, fentanyl 2 mcg/kg/h, propofol 60 mcg/kg/min -Worsening leukocytosis, WBCs this morning 23.2 was compared to 21.1 yesterday -Continue with Zosyn 3.375 g every 12 hours to cover for the positive Pseudomonas in the sputum culture -Continue to monitor leukocytosis (patient is on Decadron) 6 mg IVP every 6 hours and consider future antibiotic change if picture worsens -Discussed possibility of transfer for the patient undergo ECMO in outside facility -Patient to be transfered today following emergent dialysis this AM; transferring to [facility] to receive [facility] -Continue to monitor CBC -Neurology consulted #Severe bradycardia with hypovolemic shock #Acute kidney injury secondary to ATN, on daily hemodialysis this admission #Severe acute hyperkalemia, resolved #Severe shock liver, improving however not fully resolved -Continue hemodialysis -Nephrology consulted #Recent right knee surgery #Recent urinary tract infection Chronic conditions #Hx of pulmonary hypertension #Hx of alpha-1 antitrypsin deficiency #Hx of nicotine dependence #Hx of essential hypertension #Morbid obesity #Degenerative joint disease #Chronic peripheral neuropathy #Chronic back pain #Hx of migraine cephalgia #Hx of depression #Hx of pulmonary hypertension GI prophylaxis: Protonix 40 mg daily DVT Prophylaxis: Lovenox 40 mg subq daily Dictation was produced using [employer] dictation software. please excuse any grammatical, word or spelling errors. Objective - Vital Signs Vital signs: Vital Signs Temp 98.5 F 11/04/24 04:00 Pulse 88 11/04/24 08:57 Resp 33 H 11/04/24 07:00 BP 89/39 11/04/24 07:00 Pulse Ox 86 L 11/04/24 07:00 FiO2 100 11/04/24 08:31 Intake & Output 11/03/24 11/04/24 11/04/24 18:59 06:59 18:59 Intake Total 2140.325 1697.159 370.804 Output Total 7817 5 0 Balance -5676.675 1692.159 370.804 Weight 188 kg Intake: IV 256 36 3 Piperacillin-Tazobactam 3 200 .375 gm In Sodium Chloride 0.9% 100 ml @ 25 mls/hr IVPB Q12H SUMEET Rx# :[id number] Pressure Bag 36 36 3 Sodium Chloride 0.9% 1, 20 000 ml @ 20 mls/hr IV . Q24H SUMEET Rx#:[id number] Intake, IV Titration 957.660 4758.159 349.804 Amount Cisatracurium 200 mg In 200 284.929 181.583 Sodium Chloride 0.9% 180 ml @ 1 MCG/KG/MIN 8.709 mls/hr IV .[id number] SUMEET Rx #:[id number] DOPamine DRIP 800 mg In 75.490 95.071 Dextrose/Water 1 250ml. bag @ 1 MCG/KG/MIN 2.722 mls/hr IV .Q24H SUMEET Rx#: [id number] fentaNYL (PF) 2,500 mcg 250 354.650 In Sodium Chloride 0.9% 200 ml @ 2 MCG/KG/HR 29. 03 mls/hr IV .Q8H37M SUMEET Rx#:[id number] propofoL 1,000 mg In 452.835 620.509 168.221 Empty Bag 1 bag @ 15 MCG/ KG/MIN 13.064 mls/hr IV . Q7H40M SUMEET Rx#:[id number] Tube Feeding 216 216 18 Hemodialysis 600 Other 90 90 Output: Urine 17 5 0 Hemodialysis 4200 Hemodialysis Net Amount 3600 Other: Voiding Method Indwelling Catheter Indwelling Catheter ABP, PAP, CO, CI - Last Documented Arterial Blood Pressure 111/58 - Labs CBC & Chem 7: 11/04/24 04:18 11/04/24 04:18 Labs: Abnormal Lab Results - Last 24 Hours (Table) 11/04/24 11/04/24 11/04/24 Range/Units 04:18 04:18 04:50 WBC 21.7 H (3.8-10.6) k/uL Hgb 11.2 L (11.4-16.0) gm/dL MCHC 30.9 L (31.0-37.0) g/dL RDW 18.3 H (11.5-15.5) % Neutrophils # 20.5 H (1.3-7.7) k/uL Lymphocytes # 0.4 L (1.0-4.8) k/uL ABG pH 7.25 L (7.35-7.45) ABG pCO2 54 H (35-45) mmHg ABG pO2 64 L (83-108) mmHg ABG Total CO2 25 H (19-24) mmol/L ABG O2 Saturation 88.8 L (94-97) % Sodium 126 L (137-145) mmol/L Potassium 5.3 H (3.5-5.1) mmol/L Chloride 94 L (98-107) mmol/L Carbon Dioxide 20 L (22-30) mmol/L BUN 50 H (7-17) mg/dL Creatinine 3.14 H (0.52-1.04) mg/dL Glucose 105 H (74-99) mg/dL
[2024-11-04 12:00] LABS: Glucose,Whole Blood 108 mg/dL (70-110)
--- NOTE | 2024-11-04 12:29 | P.PN ---
Subjective patient is seen for follow-up for acute kidney injury. Patient is sedated and on the ventilator. Started on hemodialysis on 10/26/2024. Patient is maintained on daily dialysis. UF 4 L yesterday. Minimal urine output. Patient was not transferred yesterday due to transportation issues and is currently on the list for another bed. Objective - Vital Signs Vital signs: Vital Signs Temp 98.5 F 11/04/24 04:00 Pulse 88 11/04/24 08:57 Resp 33 H 11/04/24 07:00 BP 89/39 11/04/24 07:00 Pulse Ox 86 L 11/04/24 07:00 FiO2 100 11/04/24 08:31 Intake & Output 11/03/24 11/04/24 11/04/24 18:59 06:59 18:59 Intake Total 2140.325 1697.159 370.804 Output Total 7817 5 0 Balance -5676.675 1692.159 370.804 Weight 188 kg Intake: IV 256 36 3 Piperacillin-Tazobactam 3 200 .375 gm In Sodium Chloride 0.9% 100 ml @ 25 mls/hr IVPB Q12H SUMEET Rx# :[id number] Pressure Bag 36 36 3 Sodium Chloride 0.9% 1, 20 000 ml @ 20 mls/hr IV . Q24H SUMEET Rx#:[id number] Intake, IV Titration 034.724 5137.159 349.804 Amount Cisatracurium 200 mg In 200 284.929 181.583 Sodium Chloride 0.9% 180 ml @ 1 MCG/KG/MIN 8.709 mls/hr IV .[id number] SUMEET Rx #:[id number] DOPamine DRIP 800 mg In 75.490 95.071 Dextrose/Water 1 250ml. bag @ 1 MCG/KG/MIN 2.722 mls/hr IV .Q24H SUMEET Rx#: [id number] fentaNYL (PF) 2,500 mcg 250 354.650 In Sodium Chloride 0.9% 200 ml @ 2 MCG/KG/HR 29. 03 mls/hr IV .Q8H37M SUMEET Rx#:[id number] propofoL 1,000 mg In 452.835 620.509 168.221 Empty Bag 1 bag @ 15 MCG/ KG/MIN 13.064 mls/hr IV . Q7H40M SUMEET Rx#:[id number] Tube Feeding 216 216 18 Hemodialysis 600 Other 90 90 Output: Urine 17 5 0 Hemodialysis 4200 Hemodialysis Net Amount 3600 Other: Voiding Method Indwelling Catheter Indwelling Catheter ABP, PAP, CO, CI - Last Documented Arterial Blood Pressure 111/58 - Exam patient is sedated and on the vent. Bilateral breath sounds are heard Examination of the heart S1 and S2 Abdomen is soft obese Examination of lower extremity shows edema 2+ bilaterally - Labs CBC & Chem 7: 11/04/24 04:18 11/04/24 04:18 Labs: Abnormal Lab Results - Last 24 Hours (Table) 11/04/24 11/04/24 11/04/24 Range/Units 04:18 04:18 04:50 WBC 21.7 H (3.8-10.6) k/uL Hgb 11.2 L (11.4-16.0) gm/dL MCHC 30.9 L (31.0-37.0) g/dL RDW 18.3 H (11.5-15.5) % Neutrophils # 20.5 H (1.3-7.7) k/uL Lymphocytes # 0.4 L (1.0-4.8) k/uL ABG pH 7.25 L (7.35-7.45) ABG pCO2 54 H (35-45) mmHg ABG pO2 64 L (83-108) mmHg ABG Total CO2 25 H (19-24) mmol/L ABG O2 Saturation 88.8 L (94-97) % Sodium 126 L (137-145) mmol/L Potassium 5.3 H (3.5-5.1) mmol/L Chloride 94 L (98-107) mmol/L Carbon Dioxide 20 L (22-30) mmol/L BUN 50 H (7-17) mg/dL Creatinine 3.14 H (0.52-1.04) mg/dL Glucose 105 H (74-99) mg/dL Assessment and Plan Assessment: 1. Acute kidney injury secondary to ATN secondary to bradycardia, hypotension further worsened with the use of NSAIDs and diuretics. Baseline creatinine 0.7- 0.8 and 3.31 on admission. Oliguric. Started on hemodialysis October 26, 2024 via femoral dialysis catheter. No hydronephrosis noted on kidney ultrasound. Maintained on daily dialysis treatments. 2. Hyperkalemia secondary to acute kidney injury, acidosis, NSAIDs, potassium supplementation. Improved. 3. Bradycardia secondary to hyperkalemia. Improved. 4. Metabolic acidosis secondary to acute kidney injury. Status post bicarb drip. Improved. 5. Shock liver. 6. Recent right knee surgery with subsequent fall. Will need further intervention in the future. 7. Hyponatremia secondary to acute kidney injury, hypervolemic. Also receiving some IV meds with hypotonic fluids. 8. Acute hypoxic respiratory failure secondary to ARDS. Remains Intubated with 100% FiO2. Plans for transfer to outside facility for ECMO Plan: Maintain daily dialysis with increased UF as tolerated. Continue with dopamine. Overall prognosis is guarded
[2024-11-04 17:09] VITALS: TEMP 98.2
[2024-11-04 17:58] LABS: Glucose,Whole Blood 104 mg/dL (70-110)
[2024-11-04 18:12] VITALS: BP 89/39
[2024-11-04 19:26] VITALS: PULSE 87
== END 2024-11-04 19:54 | disposition short-term general hospital (02) | DRG 207 ==
LOC: EC 00:22 → 2SICU 02:56
PROVIDERS: ADMIT Family Medicine; ATTEND Family Medicine
PROC: 3E033XZ Introduction of Vasopressor into Peripheral Vein, Percutaneous Approach (ICD-10-PCS; 2024-10-26)
PROC: 02HV33Z Insertion of Infusion Device into Superior Vena Cava, Percutaneous Approach (ICD-10-PCS; 2024-10-26)
PROC: 4A133B1 Monitoring of Arterial Pressure, Peripheral, Percutaneous Approach (ICD-10-PCS; 2024-10-26)
PROC: 4A133J1 Monitoring of Arterial Pulse, Peripheral, Percutaneous Approach (ICD-10-PCS; 2024-10-26)
PROC: 03HY32Z Insertion of Monitoring Device into Upper Artery, Percutaneous Approach (ICD-10-PCS; 2024-10-26)
PROC: 06HY33Z Insertion of Infusion Device into Lower Vein, Percutaneous Approach (ICD-10-PCS; 2024-10-26)
PROC: 5A1D70Z Performance of Urinary Filtration, Intermittent, Less than 6 Hours Per Day (ICD-10-PCS; 2024-10-26)
PROC: 3E0G76Z Introduction of Nutritional Substance into Upper GI, Via Natural or Artificial Opening (ICD-10-PCS; 2024-10-26)
PROC: 0D9670Z Drainage of Stomach with Drainage Device, Via Natural or Artificial Opening (ICD-10-PCS; 2024-10-26)
PROC: 0BH17EZ Insertion of Endotracheal Airway into Trachea, Via Natural or Artificial Opening (ICD-10-PCS; principal; 2024-10-26 02:56)
PROC: 5A1955Z Respiratory Ventilation, Greater than 96 Consecutive Hours (ICD-10-PCS; principal; 2024-10-26 02:56)
DX: J80 Acute respiratory distress syndrome (principal); R57.0 Cardiogenic shock; G93.41 Metabolic encephalopathy; K72.00 Acute and subacute hepatic failure without coma; N17.0 Acute kidney failure with tubular necrosis; J69.0 Pneumonitis due to inhalation of food and vomit; R57.1 Hypovolemic shock; G93.1 Anoxic brain damage, not elsewhere classified; E87.4 Mixed disorder of acid-base balance; Z68.45 Body mass index [BMI] 70 or greater, adult; E87.1 Hypo-osmolality and hyponatremia; J90 Pleural effusion, not elsewhere classified; J98.11 Atelectasis; G90.50 Complex regional pain syndrome I, unspecified; Z99.11 Dependence on respirator [ventilator] status; B96.5 Pseudomonas (aeruginosa) (mallei) (pseudomallei) as the cause of diseases classified elsewhere; I27.20 Pulmonary hypertension, unspecified; E66.01 Morbid (severe) obesity due to excess calories; F31.9 Bipolar disorder, unspecified; I12.9 Hypertensive chronic kidney disease with stage 1 through stage 4 chronic kidney disease, or unspecified chronic kidney disease; N18.9 Chronic kidney disease, unspecified; J44.89 Other specified chronic obstructive pulmonary disease; E88.01 Alpha-1-antitrypsin deficiency; R00.1 Bradycardia, unspecified; T50.911A Poisoning by multiple unspecified drugs, medicaments and biological substances, accidental (unintentional), initial encounter; E87.5 Hyperkalemia; M19.90 Unspecified osteoarthritis, unspecified site; G47.33 Obstructive sleep apnea (adult) (pediatric); T39.395A Adverse effect of other nonsteroidal anti-inflammatory drugs [NSAID], initial encounter; T50.2X5A Adverse effect of carbonic-anhydrase inhibitors, benzothiadiazides and other diuretics, initial encounter; G62.9 Polyneuropathy, unspecified; G89.4 Chronic pain syndrome; M54.9 Dorsalgia, unspecified; R73.9 Hyperglycemia, unspecified; E78.5 Hyperlipidemia, unspecified; E07.9 Disorder of thyroid, unspecified; M25.569 Pain in unspecified knee; H57.02 Anisocoria; F41.9 Anxiety disorder, unspecified; E87.70 Fluid overload, unspecified; G43.909 Migraine, unspecified, not intractable, without status migrainosus; F40.240 Claustrophobia; F17.210 Nicotine dependence, cigarettes, uncomplicated; Z79.82 Long term (current) use of aspirin; Z79.811 Long term (current) use of aromatase inhibitors; Z79.51 Long term (current) use of inhaled steroids; Z79.890 Hormone replacement therapy; Z79.85 Long-term (current) use of injectable non-insulin antidiabetic drugs; Z79.899 Other long term (current) drug therapy; Z99.81 Dependence on supplemental oxygen; Z87.440 Personal history of urinary (tract) infections; Z86.73 Personal history of transient ischemic attack (TIA), and cerebral infarction without residual deficits; Z96.651 Presence of right artificial knee joint; Z59.82 Transportation insecurity; W19.XXXA Unspecified fall, initial encounter; Z88.5 Allergy status to narcotic agent; Z88.2 Allergy status to sulfonamides; Z71.6 Tobacco abuse counseling
CPT/HCPCS: 31500; 36415; 36556; 36600; 71045; 76770; 80048; 80053; 80143; 80179; 80306; 80320; 81001; 82140; 82550; 82805; 83036; 83735; 84132; 84145; 84439; 84443; 84450; 84460; 84484; 85025; 85027; 85610; 85730; 86706; 87040; 87070; 87077; 87186; 87205; 87340; 87635; 90935; 93005; 93306; 93970; 94002; 94003; 94640; 95822; 96365; 96368; 96375; 96376; 99291; 99292